=== PATIENT | female | born 1970 | race Caucasian/White ===

== ENCOUNTER 2017-07-29 20:02 | Emergency (ER) | payer MEDICARE, OTHER ==
[~2017-07-29] VITALS: Ht 160 cm; Wt 120.0 kg
[~2017-07-29 20:02] MED LIST: APIX5TAB PO; BEN25 PO; HYDR-3498 PO; NOL10 PO; NOL20 PO; TRAM50TA2 PO; VENL-42 PO
[2017-07-29 20:05] VITALS: Ht 160 cm; Wt 120.0 kg
--- NOTE | 2017-07-29 21:02 | ERD ---
ER Documentation Chief Complaint Date/Time DATE: 07/29/17 TIME: 20:56 Chief Complaint shortness x 1 week, hx asthma HPI Patient is a 46-year-old female with a history of asthma, breast cancer with mets to lungs and liver (last treatment over 1.5 years old), recurrent pleural effusions who presents to the emergency department for concerns of shortness of breath 1 week. Patient states that her shortness of breath occurs episodically. Patient states that she feel SOB when walking long distances. Patient denies any SOB at rest. Patient reports difficulty with taking a deep breath. Patient also reports intermittent episodes of palpitations. She states she states that her episodes last less than 1 minute. Patient denies any chest pain. Patient denies any fever, chills, left upper extremity pain, nausea, vomiting, diaphoresis, loss of consciousness. 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 Patient denies any heavy lifting or recent trauma. Patient denies any bilateral leg swelling, calf pain,recent surgeries, prolonged travel , hormone use, history of DVT or PE. ROS All systems reviewed and are negative except as per history of present illness. Medications Home Meds Active Scripts Ferrous Sulfate* (Ferrous Sulfate*) 325 Mg Tabec, 325 MG PO BID, #60 TAB Prov:MILO SEGURA PA-C 07/30/17 Diphenhydramine Hcl* (Benadryl*) 25 Mg Cap, 25 MG PO Q6, #30 CAP Prov:DURAN BERG NP 10/01/16 Tramadol HCl (Tramadol HCl) 50 Mg Tablet, 50 MG PO Q6 Y for PAIN, #20 TAB Prov:DURAN BERG NP 10/01/16 Hydrocodone Bit/Acetaminophen (Anexsia 5-325 Mg Tablet) 1 Tab Tablet, 1 TAB PO Q6H Y for MODERATE PAIN LEVEL 4-6, #20 TAB Prov:LILIYA SANCHES V. CERTIFIED MEDICAL CODER 03/24/16 Venlafaxine Hcl* (Venlafaxine Hcl ER*) 37.5 Mg Capsr, 37.5 MG PO DAILY for 30 Days, CAP Prov:SANCHESLILIYA V. CERTIFIED MEDICAL CODER 03/23/16 Apixaban* (Eliquis*) 5 Mg Tablet, 5 MG PO BID for 90 Days, TAB Prov:LILIYA SANCHES V. CERTIFIED MEDICAL CODER 03/23/16 Tamoxifen Citrate* (Nolvadex*) 10 Mg Tab, 20 MG PO DAILY for 30 Days, TAB Prov:LILIYA SANCHES V. CERTIFIED MEDICAL CODER 03/23/16 Reported Medications Tamoxifen Citrate* (Tamoxifen Citrate*) 20 Mg Tab, 20 MG PO DAILY, TAB 05/26/16 Allergies Allergies: Coded Allergies: Penicillins (Verified Allergy, Mild, 03/10/16) hydrocodone bit (Verified Adverse Reaction, Mild, HEADACHE, NAUSEA AND VOMITING, 03/10/16) PMhx/Soc History of Surgery: Yes (RT MASTECTOMY 2013, BTL) Anesthesia Reaction: No Hx Neurological Disorder: No Hx Respiratory Disorders: Yes (PLEURAL EFFUSION REQUIRING CHEST TUBE 2015) Hx Cardiac Disorders: No Hx Psychiatric Problems: No Hx Miscellaneous Medical Probl: Yes (breast ca) Hx Alcohol Use: No Hx Substance Use: No Hx Tobacco Use: No Smoking Status: Never smoker Physical Exam Vitals Vital Signs Date Time Temp Pulse Resp B/P Pulse Ox O2 Delivery O2 Flow Rate FiO2 07/30/17 01:38 98.3 89 20 137/68 97 07/29/17 20:05 98.7 89 20 143/73 97 Physical Exam GENERAL: Well-developed, well-nourished female. Appears in no acute distress. No abdominal retractions, no nasal flaring. HEAD: Normocephalic, atraumatic. EYES: Pupils are equally reactive bilaterally. EOMs grossly intact. No conjunctival erythema. ENT: Moist mucous membranes. No uvula deviation. No kissing tonsils. NECK: Supple. No meningismus. Normal range of motion of the neck. LUNG: Clear to auscultation bilaterally. No rhonchi, wheezing, rales or coarse breath sounds. HEART: Regular rate and rhythm. No murmurs, rubs or gallops. BACK: No midline tenderness. EXTREMITIES: Equal pulses bilaterally. No peripheral clubbing, cyanosis or edema. No unilateral leg swelling. NEUROLOGIC: Alert and oriented. Moving all four extremities without any difficulty. Normal speech. Steady gait. SKIN: Normal color. Warm and dry. No rashes or lesions. Result Diagram: 07/29/17212907/29/172129 Results 24 hrs Laboratory Tests Test 07/29/17 21:30 White Blood Count 11.310^3/ul Red Blood Count 4.4610^6/ul Hemoglobin 9.6g/dl Hematocrit 31.3% Mean Corpuscular Volume 70.2fl Mean Corpuscular Hemoglobin 21.5pg Mean Corpuscular Hemoglobin Concent 30.7g/dl Red Cell Distribution Width 17.9% Platelet Count 74733^3/UL Mean Platelet Volume 9.1fl Neutrophils % 61.1% Lymphocytes % 28.8% Monocytes % 7.9% Eosinophils % 1.3% Basophils % 0.5% Nucleated Red Blood Cells % 0.0/100WBC Neutrophils # 6.910^3/ul Lymphocytes # 3.310^3/ul Monocytes # 0.910^3/ul Eosinophils # 0.210^3/ul Basophils # 0.110^3/ul Nucleated Red Blood Cells # 0.010^3/ul Sodium Level 139mmol/L Potassium Level 3.8mmol/L Chloride Level 108mmol/L Carbon Dioxide Level 21mmol/L Anion Gap 14 Blood Urea Nitrogen 17mg/dl Creatinine 0.71mg/dl Glucose Level 108mg/dl Calcium Level 9.0mg/dl Troponin I < 0.012ng/ml B-Type Natriuretic Peptide 69PG/ML Procedures/MDM ED COURSE: The patient was stable throughout ED course. I kept the patient and/or family informed of laboratory and diagnostic imaging results throughout the ED course. EKG: Read by Dr. Dietrich, attending physician. EKG shows normal sinus rhythm at a rate of 72 bpm. No arrhythmias, acute ST elevations or T wave changes were noted. DIAGNOSTIC IMAGING: Read by radiologist. Patient: GLENNA KNAPP : 1970 Age: 46 Sex: F [id number] DOS: 07/29/172042 Ordering MD: MILO SEGURA PA-C Location: [facility] Room/Bed: PROCEDURE: XR Chest. CLINICAL INDICATION: Shortness of breath. TECHNIQUE: Portable AP semi erect view of the chest was obtained. COMPARISON: 03/23/2016 FINDINGS: The cardiomediastinal silhouette is within upper normal limits. The right lower lobe consolidation appears slightly worse likely compressive atelectasis from an enlarging right pleural effusion. The left lung is clear. There is no left pleural effusion or pulmonary vascular congestion. The osseous structures are intact with no evidence for acute abnormality. RPTAT:HJJR IMPRESSION: Slight interval enlargement of chronic right pleural effusion and associated compressive atelectasis of the right lower lobe as compared to 03/23/2016. Chronic empyema is difficult to exclude. Consider follow-up evaluation. Physician Erick Date Time Electronically viewed and signed by Physician Erick on 07/29/2017 22:36 JR/ CC: MILO SEGURA PA-C Patient: GLENNA KNAPP : 1970 Age: 46 Sex: F MR #: [id number] DOS: 07/29/17 2312 Ordering MD: MILO SEGURA PA-C Location: [facility] Room/Bed: PROCEDURE: CT chest without contrast CLINICAL INDICATION: Shortness of breath TECHNIQUE: CT scan of the chest with contrast was performed without intravenous contrast. Coronal and sagittal images were reformatted. One or more of the following dose reduction techniques were used: Automated exposure control, adjustment of the mA and/or kV according to patient size, use of iterative reconstruction technique. The CTDIvol = 16.20 mGy and DLP = 618.05 mGycm. COMPARISON: Chest x-ray 07/29/2017 and 03/23/2016 FINDINGS: Lungs, airway and pleura: The trachea and bronchi are patent as well as normal in caliber. In addition to the compressive atelectasis of the right lower and middle lobe seen on the chest x-ray, there are multiple nodules scattered throughout both lungs ranging in size from 4 mm up to 1 cm. These findings may reflect atypical infectious etiologies but metastatic disease is difficult to exclude. The loculated right pleural effusion extends into the major fissure and has a slightly hyperdense periphery in the inferior right thorax, findings unable to exclude a chronic empyema. The right pleural fluid may also reflect carcinomatosis. The right pleural fluid occupies an estimated 40% of the right thorax. There is no evidence of a left pleural effusion. Mediastinum, cleo and cardiovascular: The heart is normal in size. There is no evidence for pericardial effusion. The thoracic aorta is normal in caliber. Paratracheal adenopathy is approximately 1.8 cm in short axis. There is subcarinal adenopathy of approximately 1.3 cm in short axis. The esophagus is normal in caliber. Osseous structures and musculoskeletal findings: Sclerosis of the sternum is concerning for blastic metastatic disease. There is some spondylosis of the thoracic spine without additional evidence of osseous metastasis. Changes of right mastectomy are present. Right axillary adenopathy has a short axis of 1.7 cm and cannot exclude metastatic disease. Visualized upper abdomen: Hypodense masses within the liver are present, a total of 5 lesions are visualized ranging in size from 7 mm up to 6.6 cm in the right hepatic lobe, findings compatible with hepatic metastases. Adenopathy of the ventura hepatis region is present. The adrenal glands are normal bilaterally. RPTAT:HJJR IMPRESSION: 1. Loculated right pleural effusion is more concerning for carcinomatosis rather than a chronic empyema 2. Multiple scattered pulmonary nodules bilaterally in addition to compressive atelectasis of the right lower lobe are concerning for metastatic disease. Mediastinal adenopathy is also present and concerning for neoplastic involvement. 3. Changes of right mastectomy are noted with right axillary lymphadenopathy, hepatic metastases and a sclerotic sternum focus, the combination of findings believed to reflect stage IV metastatic breast cancer. Consideration might be given for follow-up evaluation with PET. Physician Erick Date Time Electronically viewed and signed by Physician Erick on 07/29/2017 23:54 JR/ CC: MILO SEGURA PA-C MEDICAL DECISION MAKING: This is a 46-year-old female with PMHx of breast cancer with mets to lung and liver who presents emergency department for concerns of shortness of breath and palpitations for the last week. Patient describes her symptoms to be episodic in nature. Patient denied any leg swelling, recent surgeries, travel, exogenous estrogen use. Vital signs were reviewed. Patient was afebrile. Patient was not hypoxic. CBC showed signs of a slight anemia. Patient does not have any indications for an emergent blood transfusion at this time. BMP showed no evidence of electrolyte abnormalities, severe acidosis, alkalosis, renal failure. PERC score was 0. Troponin was negative. BNP was negative. EKG was obtained and showed normal sinus rhythm. Reviewed by ED attending. CXR showed slight interval enlargement of chronic right pleural effusion and associated compressive atelectasis of the right lower lobe as compared to 03/23/2016. Chronic empyema is difficult to exclude. Consider follow-up evaluation. Initially, I spoke to Dr. Dietrich, supervising physician who advised me to order CT chest. CT chest was obtained given the patient had a history of cancer. CT chest showed 1. Loculated right pleural effusion is more concerning for carcinomatosis rather than a chronic empyema 2. Multiple scattered pulmonary nodules bilaterally in addition to compressive atelectasis of the right lower lobe are concerning for metastatic disease. Mediastinal adenopathy is also present and concerning for neoplastic involvement. 3. Changes of right mastectomy are noted with right axillary lymphadenopathy, hepatic metastases and a sclerotic sternum focus, the combination of findings believed to reflect stage IV metastatic breast cancer. Consideration might be given for follow-up evaluation with PET. Discussed findings with Dr. Escobar, my supervising physician at the time. Dr. Escobar also examined and spoke to the patient. We had a long discussion with patient in regards to her CT findings. Patient was offered admission, however she declined. Patient states she is barely getting her life back on track and wished to go home at this time. Patient was advised that she may return at anytime for any new or worsening symptoms. Patient was encouraged to follow-up with her oncologist for further management of her pleural effusion and CT chest findings. Patient understands and is agreeable with this plan. Patient's O2 sat remained above 95% throughout ED course with no signs of respiratory distress/failure. At this time, patient's presentation is most consistent with pleural effusion and possible carcinomatosis. She also noted to have a slight anemia. Patient was advised to take iron supplements. Low suspicion for ACS, pericarditis, pericardial tamponade, PE, pneumothorax, pneumonia, bronchitis. PRESCRIPTION: Ferrous sulfate DISCHARGE: At this time, patient is stable for discharge and outpatient management. Patient was given a copy of all imaging studies and blood work obtained today. I have instructed the patient to follow-up with his/her primary care physician/ oncologist (Dr. Tobar) in 1-2 days. I have discussed with the patient the possibility of needing to see a specialist for further workup and imaging studies if symptoms persist. I have instructed the patient to promptly return to the ER for any new or worsening symptoms including increased pain, fever, nausea, vomiting, weakness or LOC. The patient and/or family expressed understanding of and agreement with this plan. All questions were answered. Home care instructions were provided. Disclaimer: Inadvertent spelling and grammatical errors are likely due to EHR/ dictation software use and do not reflect on the overall quality of patient care. Also, please note that the electronic time recorded on this note does not necessarily reflect the actual time of the patient encounter Departure Diagnosis: Primary Impression: Pleural effusion, right Additional Impressions: Shortness of breath Carcinomatosis Condition: Stable Patient Instructions: Pleural Effusion, What Is Breast Cancer? Referrals: KACY GAN CARLOS M. MD ARORA,EMILY ZHOU MD, MD,JUAN EDEN,VERO ANTOINE,ASHLEY MARTINES MD Additional Instructions: Call your primary care doctor TOMORROW for an appointment during the next 1-2 days.See the doctor sooner or return here if your condition worsens before your appointment time. Call Dr. Tobar, your oncologist was further management of your pleural effusion. Unable to rule out metastasis at this time. MILO SEGURA PA-C Jul 29, 2017 21:02
[2017-07-29 21:43] LABS: BASOPHIL # 0.1 10^3/ul (0.0-0.1); BASOPHILS % 0.5 % (0.0-2.0); EOSINOPHILS # 0.2 10^3/ul (0.0-0.5); EOSINOPHILS % 1.3 % (0.0-7.0); HEMATOCRIT 31.3 % (37.0-47.0); HEMOGLOBIN 9.6 g/dl (12.0-16.0); LYMPHOCYTES # 3.3 10^3/ul (0.8-2.9); LYMPHOCYTES % 28.8 % (15.0-51.0); MEAN CORPUSCULAR HEMOGLOBIN 21.5 pg (29.0-33.0); MEAN CORPUSCULAR HGB CONC 30.7 g/dl (32.0-37.0); MEAN CORPUSCULAR VOLUME 70.2 fl (82.0-101.0); MEAN PLATELET VOLUME 9.1 fl (7.4-10.4); MONOCYTE # 0.9 10^3/ul (0.3-0.9); MONOCYTES % 7.9 % (0.0-11.0); NEUTROPHIL # 6.9 10^3/ul (1.6-7.5); NEUTROPHILS % 61.1 % (39.0-77.0); PLATELET COUNT 295 10^3/UL (140-415); RED BLOOD COUNT 4.46 10^6/ul (4.20-5.40); RED CELL DISTRIBUTION WIDTH 17.9 % (11.5-14.5); WHITE BLOOD COUNT 11.3 10^3/ul (4.8-10.8)
[2017-07-29 21:59] LABS: ANION GAP 14 (8-16); BLOOD UREA NITROGEN 17 mg/dl (7-20); CARBON DIOXIDE 21 mmol/L (21-31); CHLORIDE 108 mmol/L (97-110); CREATININE 0.71 mg/dl (0.44-1.00); GLUCOSE 108 mg/dl (70-220); POTASSIUM 3.8 mmol/L (3.5-5.1); SODIUM 139 mmol/L (135-144)
[2017-07-29 22:11] LABS: B-TYPE NATRIURETIC PEPTIDE 69 PG/ML (0-125)
[2017-07-29 22:15] LABS: TROPONIN-I < 0.012 ng/ml (0.00-0.12)
--- NOTE | 2017-07-29 22:37 | RADRPT ---
PROCEDURE: XR Chest. CLINICAL INDICATION: Shortness of breath. TECHNIQUE: Portable AP semi erect view of the chest was obtained. COMPARISON: 03/23/2016 FINDINGS: The cardiomediastinal silhouette is within upper normal limits. The right lower lobe consolidation appears slightly worse likely compressive atelectasis from an enlarging right pleural effusion. The left lung is clear. There is no left pleural effusion or pulmonary vascular congestion. The osseou s structures are intact with no evidence for acute abnormality. RPTAT:HJJR IMPRESSION: Slight interval enlargement of chronic right pleural effusion and associated compressive atelectasis of the right lower lobe as compared to 03/23/2016. Chronic empyema is difficult to exclude. Conside r follow-up evaluation. Physician Erick Date Time Electronically viewed and signed by Physician Erick on 07/29/2017 22:36 /
--- NOTE | 2017-07-29 23:54 | RADRPT ---
PROCEDURE: CT chest without contrast CLINICAL INDICATION: Shortness of breath TECHNIQUE: CT scan of the chest with contrast was performed without intravenous contrast. Coronal and sagittal images were reformatted. One or more of the following dose reduction techniques were used: Automated exposure control, adjustment of the mA and/or kV according to patient size, use of i terative reconstruction technique. The CTDIvol = 16.20 mGy and DLP = 618.05 mGycm. COMPARISON: Chest x-ray 07/29/2017 and 03/23/2016 FINDINGS: Lungs, airway and pleura: The trachea and bronchi are patent as well as normal in caliber. In melinda tion to the compressive atelectasis of the right lower and middle lobe seen on the chest x-ray, ther e are multiple nodules scattered throughout both lungs ranging in size from 4 mm up to 1 cm. These f indings may reflect atypical infectious etiologies but metastatic disease is difficult to exclude. The loculated right pleural effusion extends into the major fissure and has a slightly hyperdense pe riphery in the inferior right thorax, findings unable to exclude a chronic empyema. The right pleura l fluid may also reflect carcinomatosis. The right pleural fluid occupies an estimated 40% of the ri ght thorax. There is no evidence of a left pleural effusion. Mediastinum, cleo and cardiovascular: The heart is normal in size. There is no evidence for perica rdial effusion. The thoracic aorta is normal in caliber. Paratracheal adenopathy is approximately 1.8 cm in short axis. There is subcarinal adenopathy of approximately 1.3 cm in short axis. The eso phagus is normal in caliber. Osseous structures and musculoskeletal findings: Sclerosis of the sternum is concerning for blastic metastatic disease. There is some spondylosis of the thoracic spine without additional evidence of osseous metastasis. Changes of right mastectomy are present. Right axillary adenopathy has a short axis of 1.7 cm and cannot exclude metastatic disease. Visualized upper abdomen: Hypodense masses within the liver are present, a total of 5 lesions are v isualized ranging in size from 7 mm up to 6.6 cm in the right hepatic lobe, findings compatible with hepatic metastases. Adenopathy of the ventura hepatis region is present. The adrenal glands are norm al bilaterally. RPTAT:HJJR IMPRESSION: 1. Loculated right pleural effusion is more concerning for carcinomatosis rather than a chronic emp yema 2. Multiple scattered pulmonary nodules bilaterally in addition to compressive atelectasis of the ri ght lower lobe are concerning for metastatic disease. Mediastinal adenopathy is also present and con cerning for neoplastic involvement. 3. Changes of right mastectomy are noted with right axillary lymphadenopathy, hepatic metastases an d a sclerotic sternum focus, the combination of findings believed to reflect stage IV metastatic noelle ast cancer. Consideration might be given for follow-up evaluation with PET. Physician Erick Date Time Electronically viewed and signed by Physician Erick on 07/29/2017 23:54 /
[2017-07-30] MEDS ORDERED: FER325 PO (00:46)
[2017-07-30 01:38] VITALS: BP 137/68; PULSE 89; RESP 20; TEMP 98.3
== END 2017-07-30 01:39 | disposition home or self-care (01) ==
LOC: FTE 20:02
DX: J90 Pleural effusion, not elsewhere classified (principal); C80.0 Disseminated malignant neoplasm, unspecified; J45.909 Unspecified asthma, uncomplicated; Z79.01 Long term (current) use of anticoagulants; Z85.3 Personal history of malignant neoplasm of breast
CPT/HCPCS: 71010; 71250; 80048; 83880; 84484; 85025; 93005

== ENCOUNTER 2017-08-08 15:49 | Inpatient (IN) | payer MEDICARE, OTHER ==
[~2017-08-08] VITALS: Ht 162.6 cm; Wt 120.0 kg
[~2017-08-08 15:49] MED LIST changes: +FER325 PO
[2017-08-08 16:00] VITALS: Ht 162.6 cm; Wt 120.0 kg
[2017-08-08] MEDS ORDERED: ONDANSETRON 4 MG INJ IV STA (16:07)
--- NOTE | 2017-08-08 16:25 | RADRPT ---
PROCEDURE: XR Chest. CLINICAL INDICATION: Chest pain. TECHNIQUE: Single frontal view. COMPARISON: 07/29/2017. FINDINGS: There is a large right pleural effusion and only minimal aeration of the right lung apex. The left l germaine is clear and there is no left pleural effusion. The heart size is normal. There is calcification in the aorta consistent with atherosclerosis. There is no pneumothorax. IMPRESSION: 1. Large right pleural effusion, larger than seen previously. 2. Only minimal aeration of the right lung apex. 3. Otherwise unremarkable study. RPTAT: QQ .Itz Parsons MD, MD Date Time Electronically viewed and signed by .Itz Parsons MD, on 08/08/2017 16:25 .R/
[2017-08-08 16:27] LABS: BASOPHIL # 0.1 10^3/ul (0.0-0.1); BASOPHILS % 0.4 % (0.0-2.0); EOSINOPHILS % 0.1 % (0.0-7.0); HEMATOCRIT 33.5 % (37.0-47.0); HEMOGLOBIN 10.3 g/dl (12.0-16.0); LYMPHOCYTES % 14.8 % (15.0-51.0); MEAN CORPUSCULAR HEMOGLOBIN 21.3 pg (29.0-33.0); MEAN CORPUSCULAR HGB CONC 30.7 g/dl (32.0-37.0); MEAN CORPUSCULAR VOLUME 69.4 fl (82.0-101.0); MEAN PLATELET VOLUME 9.4 fl (7.4-10.4); MONOCYTE # 0.8 10^3/ul (0.3-0.9); MONOCYTES % 5.6 % (0.0-11.0); NEUTROPHIL # 10.5 10^3/ul (1.6-7.5); NEUTROPHILS % 78.6 % (39.0-77.0); PLATELET COUNT 295 10^3/UL (140-415); RED BLOOD COUNT 4.83 10^6/ul (4.20-5.40); WHITE BLOOD COUNT 13.4 10^3/ul (4.8-10.8)
[2017-08-08 16:42] LABS: INR 1.09; PROTIME 14.1 Sec (12.2-14.2); PT RATIO 1.1
[2017-08-08 16:43] LABS: PARTIAL THROMBOPLASTIN TIME 32.8 Sec (25.0-35.0)
--- NOTE | 2017-08-08 16:43 | ERA ---
ER Documentation Chief Complaint Date/Time DATE: 08/08/17 TIME: 16:41 Chief Complaint sob when lying flat during mri, lung biopsy x 1 week, + cancer HPI This is a 46-year-old female with a history of right breast cancer who had her right pleural effusion drained 5 days ago. Patient says she felt good 1-2 days after but it started getting short of breath. She says she cannot walk very far and has orthopnea. Patient was a code green at radiology department in the MRI scanner. The patient apparently was getting an MRI of her brain when she was given IV contrast she became very dizzy. The MRI was completed and when she was taken out of the scanner she was complaining of severe dizziness and did not feel well. There is no rash no swelling of the face lips tongues or throat. She had no chest pain. She states that once she got to the ER here she was having profuse vomiting over and over that is nonbloody. She says she felt better after she stopped vomiting. She denies any recent fever abdominal pain diarrhea illness or productive cough ROS All systems reviewed and are negative except as per history of present illness. Medications Home Meds Discontinued Reported Medications Tamoxifen Citrate* (Tamoxifen Citrate*) 20 Mg Tab, 20 MG PO DAILY, TAB 05/26/16 Discontinued Scripts Ferrous Sulfate* (Ferrous Sulfate*) 325 Mg Tabec, 325 MG PO BID, #60 TAB Prov:MILO SEGURA PA-C 07/30/17 Diphenhydramine Hcl* (Benadryl*) 25 Mg Cap, 25 MG PO Q6, #30 CAP Prov:DURAN BERG NP 10/01/16 Tramadol HCl (Tramadol HCl) 50 Mg Tablet, 50 MG PO Q6 Y for PAIN, #20 TAB Prov:DURAN BERG NP 10/01/16 Hydrocodone Bit/Acetaminophen (Anexsia 5-325 Mg Tablet) 1 Tab Tablet, 1 TAB PO Q6H Y for MODERATE PAIN LEVEL 4-6, #20 TAB Prov:LILIYA SANCHES V. [employer] 03/24/16 Venlafaxine Hcl* (Venlafaxine Hcl ER*) 37.5 Mg Capsr, 37.5 MG PO DAILY for 30 Days, CAP Prov:LILIYA SANCHES V. [employer] 03/23/16 Apixaban* (Eliquis*) 5 Mg Tablet, 5 MG PO BID for 90 Days, TAB Prov:SANCHES,LILIYA V. [employer] 03/23/16 Tamoxifen Citrate* (Nolvadex*) 10 Mg Tab, 20 MG PO DAILY for 30 Days, TAB Prov:SANCHES,LILIYA V. [employer] 03/23/16 Allergies Allergies: Coded Allergies: Penicillins (Verified Allergy, Mild, 08/08/17) hydrocodone bit (Verified Adverse Reaction, Mild, HEADACHE, NAUSEA AND VOMITING, 08/08/17) PMhx/Soc History of Surgery: Yes (RT MASTECTOMY 2013, BTL) Anesthesia Reaction: No Hx Neurological Disorder: No Hx Respiratory Disorders: Yes (PLEURAL EFFUSION REQUIRING CHEST TUBE 2015) Hx Cardiac Disorders: No Hx Psychiatric Problems: No Hx Miscellaneous Medical Probl: Yes (breast ca) Hx Alcohol Use: No Hx Substance Use: No Hx Tobacco Use: No Smoking Status: Never smoker Physical Exam Vitals Vital Signs Date Time Temp Pulse Resp B/P Pulse Ox O2 Delivery O2 Flow Rate FiO2 08/08/17 18:07 81 16 133/70 97 Room Air 08/08/17 16:00 Nasal Cannula 2.0 08/08/17 16:00 Nasal Cannula 2 08/08/17 16:00 98.8 91 24 160/85 97 Physical Exam Const: [] Head: Atraumatic Eyes: Normal Conjunctiva ENT: Normal External Ears, Nose and Mouth. Neck: Full range of motion..~ No meningismus. Resp: Clear to auscultation bilaterally Cardio: Regular rate and rhythm, no murmurs Abd: Soft, non tender, non distended. Normal bowel sounds Skin: No petechiae or rashes Back: No midline or flank tenderness Ext: No cyanosis, or edema Neur: Awake and alert Psych: Normal Mood and Affect Result Diagram: 08/08/17 1600 08/08/17 1600 Results 24 hrs Laboratory Tests Test 08/08/17 16:00 White Blood Count 13.410^3/ul Red Blood Count 4.8310^6/ul Hemoglobin 10.3g/dl Hematocrit 33.5% Mean Corpuscular Volume 69.4fl Mean Corpuscular Hemoglobin 21.3pg Mean Corpuscular Hemoglobin Concent 30.7g/dl Red Cell Distribution Width 18.0% Platelet Count 32389^3/UL Mean Platelet Volume 9.4fl Neutrophils % 78.6% Lymphocytes % 14.8% Monocytes % 5.6% Eosinophils % 0.1% Basophils % 0.4% Nucleated Red Blood Cells % 0.0/100WBC Neutrophils # 10.510^3/ul Lymphocytes # 2.010^3/ul Monocytes # 0.810^3/ul Eosinophils # 0.010^3/ul Basophils # 0.110^3/ul Nucleated Red Blood Cells # 0.010^3/ul Prothrombin Time 14.1Sec Prothrombin Time Ratio 1.1 INR International Normalized Ratio 1.09 Activated Partial Thromboplast Time 32.8Sec Sodium Level 137mmol/L Potassium Level 4.0mmol/L Chloride Level 105mmol/L Carbon Dioxide Level 22mmol/L Anion Gap 14 Blood Urea Nitrogen 10mg/dl Creatinine 0.57mg/dl Glucose Level 123mg/dl Calcium Level 9.2mg/dl Total Bilirubin 0.2mg/dl Direct Bilirubin 0.00mg/dl Indirect Bilirubin 0.2mg/dl Aspartate Amino Transf (AST/SGOT) 59IU/L Alanine Aminotransferase (ALT/SGPT) 29IU/L Alkaline Phosphatase 107IU/L Troponin I < 0.012ng/ml B-Type Natriuretic Peptide 77PG/ML Total Protein 8.1g/dl Albumin 4.0g/dl Globulin 4.10g/dl Albumin/Globulin Ratio 0.97 Current Medications Medications (Trade) Dose Ordered Sig/Mariza Route PRN Reason Start Time Stop Time Status Last Admin Dose Admin Ondansetron HCl (Zofran Inj) 4 mg ONCE STAT IV 08/08/17 16:07 08/08/17 16:10 DC 08/08/17 16:26 Procedures/MDM PROCEDURE: XR Chest. CLINICAL INDICATION: Chest pain. TECHNIQUE: Single frontal view. COMPARISON: 07/29/2017. FINDINGS: There is a large right pleural effusion and only minimal aeration of the right lung apex. The left lung is clear and there is no left pleural effusion. The heart size is normal. There is calcification in the aorta consistent with atherosclerosis. There is no pneumothorax. IMPRESSION: 1. Large right pleural effusion, larger than seen previously. 2. Only minimal aeration of the right lung apex. 3. Otherwise unremarkable study. RPTAT: QQ .Itz Parsons MD, MD Date Time Electronically viewed and signed by .Itz Parsons MD, on 08/08/2017 16:25 .R/ CC: JULIA ALTAMIRANO DO The patient again has a very large right pleural effusion. His unusual that the fluid has accumulated so fast again just 4-5 days after being drained. Her dizziness may have been caused from a contrast induced reaction. Her vomiting may have been from that or from the vertigo she was feeling. We will admit her to the hospital for symptomatic pleural effusion she will need to have it drained again. Departure Diagnosis: Primary Impression: Pleural effusion Condition: Stable JULIA ALTAMIRANO DO Aug 08, 2017 16:43
[2017-08-08 16:45] LABS: ALANINE AMINOTRANSFERASE 29 IU/L (13-69); ALBUMIN/GLOBULIN RATIO 0.97; ALKALINE PHOSPHATASE 107 IU/L (42-121); ANION GAP 14 (8-16); ASPARTATE AMINO TRANSFERASE 59 IU/L (15-46); BILIRUBIN,INDIRECT 0.2 mg/dl (0-1.1); BILIRUBIN,TOTAL 0.2 mg/dl (0.2-1.3); BLOOD UREA NITROGEN 10 mg/dl (7-20); CALCIUM 9.2 mg/dl (8.4-10.2); CARBON DIOXIDE 22 mmol/L (21-31); CHLORIDE 105 mmol/L (97-110); CREATININE 0.57 mg/dl (0.44-1.00); GLUCOSE 123 mg/dl (70-220); SODIUM 137 mmol/L (135-144); TOTAL PROTEIN 8.1 g/dl (6.1-8.1)
[2017-08-08 16:57] LABS: B-TYPE NATRIURETIC PEPTIDE 77 PG/ML (0-125)
[2017-08-08 17:02] LABS: TROPONIN-I < 0.012 ng/ml (0.00-0.12)
[2017-08-08] MEDS ORDERED: ONDANSETRON 4 MG INJ IV PRN ×2 (20:00→22:30)
[2017-08-08] MEDS ORDERED: ACETAMINOPHEN 325 MG TAB PO PRN (20:00)
[2017-08-08] MEDS ORDERED: DEXAMETHASONE 10 MG/ML 1 ML INJ IV ONE (20:30)
--- NOTE | 2017-08-08 20:40 | RADRPT ---
PROCEDURE: CT Brain without contrast. CLINICAL INDICATION: Evaluate for metastasis TECHNIQUE: A CT of the brain was performed on a GE [employer] 64-slice CT scanner utilizing axial imaging from the skull base through the vertex without IV contrast. Multiplanar reformatted images were made. Images were reviewed on a PACS workstation. The CTDIvol is 43.48 mGy and the DLP is 720 .23 mGycm. One of the following 3 does reduction techniques were used during this CT examination: 1) Automated exposure control 2) Adjustment of the mA +/- kV according to patient size or 3) Use of iterative reconstruction technique COMPARISON: None FINDINGS: There is no intracranial hemorrhage, mass effect, or midline shift. No extra-axial fluid collection is seen. The ventricles and sulci are normal in size and configuration. The density of the brain is normal, and the marquez white matter differentiation appears well-preserved. The visualized scalp demonstrates a permeative pattern of the right frontal calvarium associated wit h a transspatial mass involving the right frontal scalp and extending through the calvarium into the extra-axial an intra-axial spaces. A right frontal lobe mass is present at the marquez-white matter ju nction with extensive vasogenic perilesional edema. In addition, multiple other masses which are hyp erdense are noted in the left parietal convexity measuring approximately 4 and 9 mm in maximum dimen sions. Recommend brain MRI with contrast to further evaluate. Effacement of the right lateral is present and right to left 6 mm midline shift and subfalcine herni ation is present. No evidence for hydrocephalus or acute hemorrhage is noted. The visualized orbits are normal. The visualized paranasal sinuses, mastoid air cells and middle ear cavities are clear. IMPRESSION: 1. Large right trans spatial mass involving the right frontal scalp, calvarium, extra axial space a nd right frontal lobe with extensive perilesional edema. This is compatible with metastatic disease and recommend brain MRI with contrast to further evaluate. 2. Multiple left parietal convexity hyperdense lesions at the marquez-white matter junction compatible with additional metastasis. 3. 6 mm right to left midline herniation and effacement of the right lateral ventricle. 4. No evidence for acute hemorrhage or hydrocephalous Critical result A call report was made to ER Patient's Nurse, Sydnee Allison, at 08/08/2017 8:35:45 PM following the completion of the examination by the undersigned. RPTAT: LISC .Ophelia Olguin MD, MD Date Time Electronically viewed and signed by .Ophelia Olguin MD, MD on 08/08/2017 20:39 .C/
[2017-08-08 21:48] VITALS: PULSE 80
--- NOTE | 2017-08-08 22:14 | RADRPT ---
PROCEDURE: CT Brain without contrast. CLINICAL INDICATION: Sudden left-sided weakness TECHNIQUE: A CT of the brain was performed on a GE [employer] 64-slice CT scanner utilizing axial imaging from the skull base through the vertex without IV contrast. Multiplanar reformatted images were made. Images were reviewed on a PACS workstation. The CTDIvol is 42.81 mGy and the DLP is 20. 23 mGycm. One of the following 3 does reduction techniques were used during this CT examination: 1) Automated exposure control 2) Adjustment of the mA +/- kV according to patient size or 3) Use of iterative reconstruction technique COMPARISON: None FINDINGS: The visualized scalp and again demonstrates a preventive lesion in the right frontal calvarium with the trans spatial lesion extending from the right frontal scalp involving the calvarium and the righ t frontal extra-axial and frontal lobe. This lesion is concerning for metastasis. Perilesional edema is noted in the right frontal lobe with effacement of the right lateral ventricle. Again noted is 6 mm right to left midline herniation. Multiple hyperdense nodules are noted in the left posterior pa rietal lobe at the marquez-white matter junction ranging in size from 4 to 9 mm. Hyperdense metastasis are again likely per Brain MRI with contrast is again recommended to further evaluate. No extra-axial fluid collections are present. No evidence for extra-axial hemorrhage is noted. No ev idence for hydrocephalus is noted. IMPRESSION: 1. No significant interval change in the large right frontal trans patient will mass involving the scalp, the calvarium, the right frontal extra-axial space in the right frontal lobe with extensive p erilesional edema. This is concerning for a metastasis and recommend brain MRI with contrast. 2. Multiple left parietal convexity hyperdense lesions ranging in size from fourth to 9 mm also com patible with metastasis. 3. 6 mm right to left midline shift 4. No evidence for hydrocephalus at this time. RPTAT: HDC .Ophelia Olguin MD, MD Date Time Electronically viewed and signed by .Ophelia Olguin MD, on 08/08/2017 22:14 .C/
[2017-08-08 22:25] VITALS: PULSE 79
[2017-08-08 22:30] VITALS: BP 124/87; PULSE 75; RESP 20
[2017-08-08] MEDS ORDERED: ALBUTEROL/IPRATROPIUM (NEB) 3 ML AMP NEB PRN (22:30)
[2017-08-08] MEDS ORDERED: morphine 2 MG INJ IV PRN (22:30)
[2017-08-08] MEDS ORDERED: DEXAMETHASONE 10 MG/ML 1 ML INJ IV STA (22:45)
[2017-08-08 23:00] VITALS: BP 139/84; PULSE 82; RESP 24
[2017-08-08 23:29] LABS: BASOPHILS % 0.3 % (0.0-2.0); EOSINOPHILS % 0.1 % (0.0-7.0); HEMATOCRIT 30.5 % (37.0-47.0); HEMOGLOBIN 9.4 g/dl (12.0-16.0); LYMPHOCYTES # 1.7 10^3/ul (0.8-2.9); LYMPHOCYTES % 16.3 % (15.0-51.0); MEAN CORPUSCULAR HEMOGLOBIN 21.3 pg (29.0-33.0); MEAN CORPUSCULAR HGB CONC 30.8 g/dl (32.0-37.0); MEAN CORPUSCULAR VOLUME 69.2 fl (82.0-101.0); MEAN PLATELET VOLUME 9.3 fl (7.4-10.4); MONOCYTE # 0.8 10^3/ul (0.3-0.9); MONOCYTES % 7.5 % (0.0-11.0); NEUTROPHIL # 7.9 10^3/ul (1.6-7.5); NEUTROPHILS % 75.4 % (39.0-77.0); PLATELET COUNT 235 10^3/UL (140-415); RED BLOOD COUNT 4.41 10^6/ul (4.20-5.40); RED CELL DISTRIBUTION WIDTH 17.7 % (11.5-14.5); WHITE BLOOD COUNT 10.5 10^3/ul (4.8-10.8)
[2017-08-08 23:53] LABS: ALBUMIN 3.3 g/dl (3.3-4.9); ALBUMIN/GLOBULIN RATIO 0.82; BILIRUBIN,INDIRECT 0.3 mg/dl (0-1.1); BILIRUBIN,TOTAL 0.3 mg/dl (0.2-1.3); CALCIUM 9.1 mg/dl (8.4-10.2); CREATININE 0.62 mg/dl (0.44-1.00); POTASSIUM 3.9 mmol/L (3.5-5.1); TOTAL PROTEIN 7.3 g/dl (6.1-8.1)
[2017-08-08] MEDS: DEXAMETHASONE 4 MG/ML 1 ML INJ IV SCH (23:53)
[2017-08-09] VITALS (22 sets, daily range): BP systolic 119–186; BP diastolic 71–115; PULSE 59–85; RESP 18–33
[2017-08-09] MEDS: DEXAMETHASONE 4 MG/ML 1 ML INJ IV SCH ×3 (06:43→17:53)
--- NOTE | 2017-08-09 07:46 | HP ---
Date/Time of Note Date/Time of Note DATE: 08/09/17 TIME: 07:35 Assessment/Plan VTE Prophylaxis VTE Prophylaxis Intervention: SCD's Lines/Catheters IV [facility]ter [facility]from [facility]): Peripheral IV Urinary Cath still in place: No Assessment/Plan Assessment/Plan ASSESSMENT 46-year-old female with history of breast cancer with metastasis to the lung, liver and recurrent pleural effusion now with brain metastasis PLAN Continue ICU monitoring Frequent neuro checks Decadron Follow-up MRI of the brain results Thoracentesis Neurosurgery evaluation Will notify her oncologist about admission HPI/ROS Admit Date/Time Admit Date/Time Aug 08, 2017 at 19:54 Hx of Present Illness This is a 46-year-old female with a history of breast cancer with metastasis to lung and liver status post right-sided mastectomy with recurrent rule out effusion who initially presented for a MRI of the brain. During imaging, patient became severely dizzy as a result patient was sent to ER. MRI was completed. She told me that even when she was at home, she was planning on going to the ER after MRI is done because she has been having diffuse headache for the past day or 2 and because of continued shortness of breath. She said a few days ago she had thoracentesis at the outside hospital but she continued to have shortness of breath. She has had multiple thoracentesis for recurrent right-sided pleural effusion. Patient was initially admitted to telemetry unit but acidosis she got there she was noted to have difficulty speaking and a per patient she was also shaking. Patient is admitted to ICU for close monitoring given finding of brain imaging. See below. CT of the head showed Large right trans spatial mass involving the right frontal scalp, calvarium, extra axial space and right frontal lobe with extensive perilesional edema, Multiple left parietal convexity hyperdense lesions at the marquez-white matter junction compatible with additional metastasis. and 6 mm right to left midline herniation and effacement of the right lateral ventricle. PMH/Family/Social Social History Smoking Status: Never smoker Exam/Review of Systems Vital Signs Vitals Vital Signs Date Time Temp Pulse Resp B/P Pulse Ox O2 Delivery O2 Flow Rate FiO2 08/09/17 06:21 2.0 08/09/17 06:00 70 24 93 08/09/17 05:00 130/71 Nasal Cannula 08/09/17 04:00 98.3 Intake and Output 08/08/17 08/08/17 08/09/17 15:00 23:00 07:00 Intake Total 200 ml Output Total 1050 ml Balance -850 ml Exam Constitutional: alert, oriented, well developed Head: atraumatic, normocephalic Eyes: EOMI, PERRL Respiratory: diminished breath sounds Cardiovascular: nl pulses, regular rate and rhythm Extremities: normal pulses Labs Result Diagram: 08/08/17230408/08/17 230 Medications Medications Current Medications Ondansetron HCl (Zofran Inj) 4 mg Q6H PRN IV NAUSEA AND/OR VOMITING; Start at 22:30 Acetaminophen (Tylenol Liquid) 650 mg Q6H PRN PO PAIN LEVEL 1-3 OR FEVER; Start 08/08/17 at 22:30 Morphine Sulfate (morphine) 2 mg Q4H PRN IV PAIN LEVEL 7-10; Start 08/08/17 at 22:30 Famotidine (Pepcid) 20 mg Q12 PO ; Start 08/09/17 at 09:00 Dexamethasone (Decadron) 4 mg Q6 IV Last administered on 08/09/17t 06:43; Admin Dose 4 MG; Start 08/09/17 at 00:00 LARISA GONZALES MD Aug 09, 2017 07:45
[2017-08-09] MEDS: FAMOTIDINE 20 MG TAB PO SCH ×2 (09:34→20:52)
--- NOTE | 2017-08-09 12:54 | CONS ---
DATE OF ADMISSION: 08/08/2017 DATE OF CONSULTATION: 08/09/2017 REASON FOR CONSULTATION: Right pleural effusion. Thank you, Dr. Lee for this consultation. HISTORY OF PRESENT ILLNESS: This is a pleasant, 46-year-old lady with a history of metastatic breast cancer now found to have METS to the brain, in addition to history of METS to the lungs. She has had recurrent pleural effusions. The last thoracentesis was performed less than 1 week ago. The patient states in the past she has had a PleurX catheter approximately a year ago and this was removed when she had minimal drainage. Currently has mild dyspnea but no hemoptysis or hematemesis. No nausea or vomiting. PAST MEDICAL HISTORY: 1. Metastatic breast cancer. 2. Mild obesity. MEDICATION: Per chart. ALLERGIES: PENICILLIN AND HYDROCODONE. SOCIAL HISTORY: She is a nonsmoker. No alcohol. No history of drug use. FAMILY HISTORY: Noncontributory. REVIEW OF SYSTEMS: A 12-point review of systems negative other than that mentioned above. PHYSICAL EXAMINATION: GENERAL: Well-nourished, well-developed lady, comfortable at rest. No acute distress. VITAL SIGNS: Currently afebrile. Pulse is 68, blood pressure 125/72, O2 sat 96 percent on 4 L nasal cannula. NECK: Supple. No JVD. No lymphadenopathy. CARDIAC: S1, S2. No added sounds or murmurs. CHEST: Diminished air entry bilaterally. ABDOMEN: Soft, nontender. No guarding or rebound. EXTREMITIES: No cyanosis, clubbing or edema. NEUROLOGICALLY: No focal deficits. LABORATORY: White count 10.5, hemoglobin 9.4, and platelets of 235. INR 1.09. Chest x-ray shows a large to moderate right pleural effusion. IMPRESSION: 1. Recurrent right pleural effusion, likely secondary to underlying metastatic breast cancer. 2. New central nervous system ([employer]) lesions with cerebral edema. PLAN: 1. The patient to have a PleurX catheter placed for recurrent pleural effusions. 2. Continue steroids for cerebral edema. 3. Neurosurgical recommendations. 4. Consider palliative care consultation as overall prognosis is guarded. Dictated By: Eh Freeman MD /barb/landry /Document#: [id number]
--- NOTE | 2017-08-09 14:28 | CONS ---
Date/Time of Note Date/Time of Note DATE: 08/09/17 TIME: 13:46 Assessment/Plan Assessment/Plan Chief Complaint/Hosp Course #Her2+/ER+/GA+ metastatic breast ca -pt is non compliant and when she receives therapy, she is quite responsive to therapy -therefore at this time, although she has terminal disease, there are still many more treatment options which she could benefit from -given her Brain mets, I would consider a combination of Xeloda and Lapatinib which can penetrate the blood brain barrier -once she stabilizes can restart Tamoxifen as well #Brain Mets -these are quite large and bulky -I have spoken to neurosurgery about potentially resecting these tumors. -will refer the patient to rad onc as well as she will need this regardless, post operatively -if surgery is not an option we can also consider radiosurgery #Pleural Effusion -pt to have a thoracentesis -will check cytology and re-evaluate her prognostic markers Problems: Consultation Date/Type/Reason Admit Date/Time Aug 08, 2017 at 19:54 Date of Consultation: Aug 09, 2017 Type of Consultation: Oncology Reason for Consultation metastatic Her2+ Breast ca now with brain mets Referring Provider: JUAN MOTLEY Hx of Present Illness 46-year-old female first seen our office in Oct 2014. Her history is as follows: -04/09/2013 had a right mastectomy on for a 3 cm poorly differentiated infiltrating ductal carcinoma with high-grade ductal carcinoma in situ measuring 3 cm with clear margins, but 7/8 nodes were positive for cancer. Her ER and GA were strongly positive. Ki-67 was high at 82%. Her HER-2/abraham was positive at 3+ by IHC,, PT was initially treated by Dr. Derrek Coleman who presumably gave the patient adjuvant Taxotere/ Cytoxan and Herceptin which was completed in 02/2014 with breaks in the therapy due to patient non compliance. PT was also given Tamoxifen which she only took for 2 months. -10/2014 pt presented to our clinic and was restarted on Tamoxifen The patient received untilchemotherapy until 02/2014, but I do not have the flow sheet. The patient was started on tamoxifen earlier this year, but she stopped after two months because of side effects. -01/2016 Re-presented to our clinic, off tamoxifen for almost [address] done revealed enlarged lymph nodes in R axilla and intrathroacic lymph nodes. Also noted were pulmonary nodules, right pleural effusion, liver mets and bone mets. She changed insurance. It should be noted that her BRCA1 and BRCA2 were done, which were negative. 03/2016 - PT started TAxotere/ Cytoxan / Herceptin. She received 6 cycles until 09/27/16. Shew as also placed back on Tamoxifen 06/[address] showed significant response to treatment with resolved pleural effusion, and resolved lymphadenopathy as well as decrease in liver mets and resolved bone mets. 11/2016: pt was on single agent Tamoxifen as she wanted to take a break from infusional therapy. 12/2016: PET CT was done which demonstrated continued decrease in lymphadenopathy and continued decrease in the hepatic mets. osseous mets were stable. 01/2017 was the last time we saw her in clinic. 05/2017 : pt was noted to have recurrent pleural effusions and had a pleurex catheter placed and removed. The cytology was malignant. She was to follow up with me as an outpatient to re-initiate therapy 07/2017 - CT Chest was done which demonstrated loculated pleural effusion concerning for carcinomatosis. Also seen are multiple pulmonary nodules and lymph adenopathy 08/04/[address] : new metabolic uptake in anterior temporal lobe concerning for brain mets. extensive new liver mets, progressive osseous mets and progressive coco mets in the bilateral lower neck, right axilla, chest and abdomen. also seen is a new right pleural effusion. also seen are progressive pulmonary mets. 08/08/17 Brain MRI done revealed mass in right frontal calvarium extending to overlying scalp soft tissue and underling meninges measuring 5cm. also seen is a mass in patience right sphenotemporal buttress extending to dura measuring 1.9 cm. also seen in a left parietal lobe lesion measuring 9mm, there is associated midline shift and no herniation Pt was admitted for neurosurgical evaluation. Constitutional: other (dizziness) Eyes: no complaints ENT: no complaints Respiratory: no complaints, shortness of breath Cardiovascular: no complaints Gastrointestinal: constipation, decreased appetite Musculoskeletal: bone/joint pain Past Medical History metastatic breast cancer Past Surgical History R Breast MRM in 2012 Family History Significant Family History: no pertinent family hx Social History Alcohol Use: none Smoking Status: Never smoker Drug Use: none Exam/Review of Systems Vital Signs Vitals Vital Signs Date Time Temp Pulse Resp B/P Pulse Ox O2 Delivery O2 Flow Rate FiO2 08/09/17 12:00 68 08/09/17 11:00 20 125/72 97 Nasal Cannula 4.0 08/09/17 08:00 98.1 Intake and Output 08/08/17 08/08/17 08/09/17 15:00 23:00 07:00 Intake Total 200 ml Output Total 1050 ml Balance -850 ml Exam Constitutional: alert, oriented Psych: no complaints Head: normocephalic Eyes: nl conjunctiva ENMT: nl external ears & nose Neck: non-tender, supple Respiratory: crackles/rales, diminished breath sounds, labored breathing Cardiovascular: nl pulses, regular rate and rhythm Gastrointestinal: soft Musculoskeletal: nl extremities to inspection Skin: other (s/p R MRM) Results Result Diagram: 08/08/17 2305 08/08/17 2305 Results 24 hrs Laboratory Tests Test 08/08/17 16:00 08/08/17 23:05 White Blood Count 13.4 H 10.5 # Red Blood Count 4.83 4.41 Hemoglobin 10.3 L 9.4 L Hematocrit 33.5 L 30.5 L Mean Corpuscular Volume 69.4 L 69.2 L Mean Corpuscular Hemoglobin 21.3 L 21.3 L Mean Corpuscular Hemoglobin Concent 30.7 L 30.8 L Red Cell Distribution Width 18.0 H 17.7 H Platelet Count 295 235 # Mean Platelet Volume 9.4 9.3 Neutrophils % 78.6 H 75.4 Lymphocytes % 14.8 L 16.3 Monocytes % 5.6 7.5 Eosinophils % 0.1 0.1 Basophils % 0.4 0.3 Nucleated Red Blood Cells % 0.0 0.0 Neutrophils # 10.5 H 7.9 H Lymphocytes # 2.0 1.7 Monocytes # 0.8 0.8 Eosinophils # 0.0 0.0 Basophils # 0.1 0.0 Nucleated Red Blood Cells # 0.0 0.0 Prothrombin Time 14.1 Prothrombin Time Ratio 1.1 INR International Normalized Ratio 1.09 Activated Partial Thromboplast Time 32.8 Sodium Level 137 135 Potassium Level 4.0 3.9 Chloride Level 105 103 Carbon Dioxide Level 22 26 Anion Gap 14 10 Blood Urea Nitrogen 10 10 Creatinine 0.57 0.62 Glucose Level 123 124 Calcium Level 9.2 9.1 Total Bilirubin 0.2 0.3 Direct Bilirubin 0.00 0.00 Indirect Bilirubin 0.2 0.3 Aspartate Amino Transf (AST/SGOT) 59 H 56 H Alanine Aminotransferase (ALT/SGPT) 29 29 Alkaline Phosphatase 107 96 Troponin I < 0.012 B-Type Natriuretic Peptide 77 Total Protein 8.1 7.3 Albumin 4.0 3.3 Globulin 4.10 H 4.00 H Albumin/Globulin Ratio 0.97 0.82 Medications Medications Current Medications Ondansetron HCl (Zofran Inj) 4 mg Q6H PRN IV NAUSEA AND/OR VOMITING; Start at 22:30 Acetaminophen (Tylenol Liquid) 650 mg Q6H PRN PO PAIN LEVEL 1-3 OR FEVER; Start 08/08/17 at 22:30 Morphine Sulfate (morphine) 2 mg Q4H PRN IV PAIN LEVEL 7-10; Start 08/08/17 at 22:30 Famotidine (Pepcid) 20 mg Q12 PO Last administered on 08/09/17 09:34; Admin Dose 20 MG; Start 08/09/17 at 09:00 Dexamethasone (Decadron) 4 mg Q6 IV Last administered on 08/09/17 11:43; Admin Dose 4 MG; Start 08/09/17 at 00:00 ANTWON DYE M.D. Aug 09, 2017 14:09
--- NOTE | 2017-08-09 15:34 | PN ---
Date/Time of Note Date/Time of Note DATE: 08/09/17 TIME: 15:32 Assessment/Plan VTE Prophylaxis VTE Prophylaxis Intervention: SCD's Lines/Catheters IV [facility]from [facility] Saline Lock Urinary Cath still in place: No Assessment/Plan Chief Complaint/Hosp Course Patient is a 46-year-old female with a past medical history of HER-2 and estrogen receptor positive metastatic breast cancer to the lung, liver and brain who presents after feeling dizzy during routine outpatient MRI Assessment Dizziness Metastatic breast cancer, metastases to the lung, liver, brain 6 mm [id number] midline herniation and effacement of the right lateral ventricle Large right-sided pleural effusion Status post right-sided mastectomy Headache Shortness of breath, stable Plan -Attempting to obtain MRI results from [facility] and uploaded into the system, neurosurgery has been consulted, recommends steroids for cerebral edema, questionable resection, recommendations pending -Oncology has also seen the patient, multiple options still available for patients, physical resection versus radiosurgery. -Symptomatic care for now -Decadron for cerebral edema -Pulmonology has been consulted for large right pleural effusion, thoracentesis on hold as patient had recent thoracentesis 5 days ago and quick recurrence, recommend a Pleurx catheter instead, pending placement of catheter -Monitor in ICU Problems: Subjective 24 Hr Interval Summary Free Text/Dictation no SOB or headache at this time Exam/Review of Systems Vital Signs Vitals Vital Signs Date Time Temp Pulse Resp B/P Pulse Ox O2 Delivery O2 Flow Rate FiO2 08/09/17 12:00 68 08/09/17 11:00 20 125/72 97 Nasal Cannula 4.0 08/09/17 08:00 98.1 Intake and Output 08/08/17 08/08/17 08/09/17 15:00 23:00 07:00 Intake Total 200 ml Output Total 1050 ml Balance -850 ml Exam Physical exam General: Patient is laying in bed and answers questions appropriately Mentation: Patient is alert and oriented 4, Head: Normocephalic atraumatic Eyes: EOMI, pupils reactive to light Neck: Supple, nontender, midline Respiratory: dimished breath sounds on the R. Cardiovascular: regular rate, no obvious murmurs Gastrointestinal: non-tender to palpation, bowel sounds heard. Neurological: Moves all extremities spontaneously, very mild strength deficit on L UE Skin: No new skin lesions Results Result Diagram: 08/08/175 08/08/17 2305 Results 24 hrs Laboratory Tests Test 08/08/17 16:00 08/08/17 23:05 White Blood Count 13.4 H 10.5 # Red Blood Count 4.83 4.41 Hemoglobin 10.3 L 9.4 L Hematocrit 33.5 L 30.5 L Mean Corpuscular Volume 69.4 L 69.2 L Mean Corpuscular Hemoglobin 21.3 L 21.3 L Mean Corpuscular Hemoglobin Concent 30.7 L 30.8 L Red Cell Distribution Width 18.0 H 17.7 H Platelet Count 295 235 # Mean Platelet Volume 9.4 9.3 Neutrophils % 78.6 H 75.4 Lymphocytes % 14.8 L 16.3 Monocytes % 5.6 7.5 Eosinophils % 0.1 0.1 Basophils % 0.4 0.3 Nucleated Red Blood Cells % 0.0 0.0 Neutrophils # 10.5 H 7.9 H Lymphocytes # 2.0 1.7 Monocytes # 0.8 0.8 Eosinophils # 0.0 0.0 Basophils # 0.1 0.0 Nucleated Red Blood Cells # 0.0 0.0 Prothrombin Time 14.1 Prothrombin Time Ratio 1.1 INR International Normalized Ratio 1.09 Activated Partial Thromboplast Time 32.8 Sodium Level 137 135 Potassium Level 4.0 3.9 Chloride Level 105 103 Carbon Dioxide Level 22 26 Anion Gap 14 10 Blood Urea Nitrogen 10 10 Creatinine 0.57 0.62 Glucose Level 123 124 Calcium Level 9.2 9.1 Total Bilirubin 0.2 0.3 Direct Bilirubin 0.00 0.00 Indirect Bilirubin 0.2 0.3 Aspartate Amino Transf (AST/SGOT) 59 H 56 H Alanine Aminotransferase (ALT/SGPT) 29 29 Alkaline Phosphatase 107 96 Troponin I < 0.012 B-Type Natriuretic Peptide 77 Total Protein 8.1 7.3 Albumin 4.0 3.3 Globulin 4.10 H 4.00 H Albumin/Globulin Ratio 0.97 0.82 Medications Medications Current Medications Ondansetron HCl (Zofran Inj) 4 mg Q6H PRN IV NAUSEA AND/OR VOMITING; Start at 22:30 Acetaminophen (Tylenol Liquid) 650 mg Q6H PRN PO PAIN LEVEL 1-3 OR FEVER; Start 08/08/17 at 22:30 Morphine Sulfate (morphine) 2 mg Q4H PRN IV PAIN LEVEL 7-10; Start 08/08/17 at 22:30 Famotidine (Pepcid) 20 mg Q12 PO Last administered on 08/09/17 09:34; Admin Dose 20 MG; Start 08/09/17 at 09:00 Dexamethasone (Decadron) 4 mg Q6 IV Last administered on 08/09/17 11:43; Admin Dose 4 MG; Start 08/09/17 at 00:00 JUAN MOTLEY Aug 09, 2017 15:34
--- NOTE | 2017-08-09 20:40 | CONS ---
Date/Time of Note Date/Time of Note DATE: 08/09/17 TIME: 20:31 Assessment/Plan Assessment/Plan Additional Assessment/Plan Large right hemispheric breast metastasis, with midline shift and edema. This is too large to consider treating with primary XRT in my opinion. She will need craniectomy of involved calvarium and reconstruction of the skull with a titanium mesh cranioplasty at the same time as resection of the tumor itself. If there is significant pial invasion she may have left sided weakness. She is right handed so I do not expect a significant speech or cognitive adverse effect. She will need XRT to the resection cavity. I also spoke with her about the possibility that the skin overlying the lesion may be compromised. She expressed her understanding of the risks and benefit of surgery and agrees to proceed. She is to have her right pleural effusion treated tomorrow; craniotomy may be arranged as soon as Monday if cleared by primary service. Thank you. Consultation Date/Type/Reason Admit Date/Time Aug 08, 2017 at 19:54 Date of Consultation: Aug 09, 2017 Type of Consultation: NEUROSURGERY Reason for Consultation large right calvarial metastasis with intradural extension Hx of Present Illness The patient is a 46 year old femalew ith a history of HEr2+ breast CA now presenting with large right calvarial metastatic tumor with dural extension, possible brain invasion, and right frontal vasogenic edema and midline shift of 5mm. Patient has had headache and N/V. She has been followed by Dr. Doan. There is another area on left laurie-atrial white matter that has hemosiderin staining and a blush of hemorrhage, that may represent either a second met or possible a cavernoma. Neurosurgical input regarding management of brain metastases has been requested. Constitutional: other (dizziness) Eyes: no complaints ENT: no complaints Respiratory: no complaints, shortness of breath Cardiovascular: no complaints Gastrointestinal: constipation, decreased appetite Musculoskeletal: bone/joint pain Psychological: no complaints Social History Alcohol Use: none Smoking Status: Never smoker Drug Use: none Exam/Review of Systems Vital Signs Vitals Vital Signs Date Time Temp Pulse Resp B/P Pulse Ox O2 Delivery O2 Flow Rate FiO2 08/09/17 20:10 96 2.0 08/09/17 20:00 98.2 59 23 174/104 Nasal Cannula Intake and Output 08/08/17 08/08/17 08/09/17 15:00 23:00 07:00 Intake Total 200 ml Output Total 1050 ml Balance -850 ml Exam On neurologic examination the patient is doing very well, is awake and alert and following commands briskly. Her speech is fluent and appropriate. She seems cheerful. Her cranial nerve exam is benign with intact extra-ocular movements, pupils equal and reactive, TML, face =. She moves all extremities with full power and has no pronator drift. Results Result Diagram: 08/08/17 2305 08/08/17 2305 Results 24 hrs Laboratory Tests Test 08/08/17 23:05 White Blood Count 10.5 # Red Blood Count 4.41 Hemoglobin 9.4 L Hematocrit 30.5 L Mean Corpuscular Volume 69.2 L Mean Corpuscular Hemoglobin 21.3 L Mean Corpuscular Hemoglobin Concent 30.8 L Red Cell Distribution Width 17.7 H Platelet Count 235 # Mean Platelet Volume 9.3 Neutrophils % 75.4 Lymphocytes % 16.3 Monocytes % 7.5 Eosinophils % 0.1 Basophils % 0.3 Nucleated Red Blood Cells % 0.0 Neutrophils # 7.9 H Lymphocytes # 1.7 Monocytes # 0.8 Eosinophils # 0.0 Basophils # 0.0 Nucleated Red Blood Cells # 0.0 Sodium Level 135 Potassium Level 3.9 Chloride Level 103 Carbon Dioxide Level 26 Anion Gap 10 Blood Urea Nitrogen 10 Creatinine 0.62 Glucose Level 124 Calcium Level 9.1 Total Bilirubin 0.3 Direct Bilirubin 0.00 Indirect Bilirubin 0.3 Aspartate Amino Transf (AST/SGOT) 56 H Alanine Aminotransferase (ALT/SGPT) 29 Alkaline Phosphatase 96 Total Protein 7.3 Albumin 3.3 Globulin 4.00 H Albumin/Globulin Ratio 0.82 Medications Medications Current Medications Ondansetron HCl (Zofran Inj) 4 mg Q6H PRN IV NAUSEA AND/OR VOMITING; Start at 22:30 Acetaminophen (Tylenol Liquid) 650 mg Q6H PRN PO PAIN LEVEL 1-3 OR FEVER; Start 08/08/17 at 22:30 Morphine Sulfate (morphine) 2 mg Q4H PRN IV PAIN LEVEL 7-10; Start 08/08/17 at 22:30 Famotidine (Pepcid) 20 mg Q12 PO Last administered on 08/09/17t 09:34; Admin Dose 20 MG; Start 08/09/17 at 09:00 Dexamethasone (Decadron) 4 mg Q6 IV Last administered on 08/09/17t 17:53; Admin Dose 4 MG; Start 08/09/17 at 00:00 JOEY GRANT MD Aug 09, 2017 20:40
[2017-08-10] VITALS (21 sets, daily range): BP systolic 109–148; BP diastolic 58–113; PULSE 56–82; RESP 14–24
[2017-08-10] MEDS: DEXAMETHASONE 4 MG/ML 1 ML INJ IV SCH ×5 (00:24→23:32)
[2017-08-10 05:29] LABS: BASOPHILS % 0.1 % (0.0-2.0); HEMOGLOBIN 9.6 g/dl (12.0-16.0); LYMPHOCYTES # 1.6 10^3/ul (0.8-2.9); LYMPHOCYTES % 11.4 % (15.0-51.0); MEAN CORPUSCULAR HEMOGLOBIN 21.5 pg (29.0-33.0); MEAN CORPUSCULAR VOLUME 69.5 fl (82.0-101.0); MEAN PLATELET VOLUME 9.9 fl (7.4-10.4); MONOCYTE # 0.6 10^3/ul (0.3-0.9); MONOCYTES % 3.9 % (0.0-11.0); NEUTROPHILS % 83.8 % (39.0-77.0); PLATELET COUNT 283 10^3/UL (140-415); RED BLOOD COUNT 4.46 10^6/ul (4.20-5.40); RED CELL DISTRIBUTION WIDTH 18.1 % (11.5-14.5); WHITE BLOOD COUNT 14.3 10^3/ul (4.8-10.8)
[2017-08-10 05:48] LABS: CALCIUM 9.3 mg/dl (8.4-10.2); CREATININE 0.69 mg/dl (0.44-1.00); MAGNESIUM 1.9 mg/dl (1.7-2.5); POTASSIUM 4.4 mmol/L (3.5-5.1)
[2017-08-10] MEDS: FAMOTIDINE 20 MG TAB PO SCH ×2 (08:13→21:08)
--- NOTE | 2017-08-10 08:37 | RADRPT ---
PROCEDURE: MR Brain with and without intravenous contrast CLINICAL INDICATION: Preoperative planning. History breast cancer. COMPARISON: CT from 08/08/2017. MRI brain from 08/08/2017 performed under the name "Mary Alice Hughes" with accession [id number] and . TECHNIQUE: Multiplanar multi-sequence images of the brain were obtained before and after the unevent ful administration of 10 mL Magnevist intravenous contrast. Images acquired on a 3.0 Samia magnet. FINDINGS: Bones: Multiple masses, consistent with metastases. 1. A mass centered within the right frontal calvarium extends to the overlying scalp soft tissues as well as the underlying meninges and extra-axial space. It measures approximately 4.7 x 4.5 x 4.0 cm . The mass has a large dural tail extending to the frontal and temporal lobe. 2. The mass centered in the right sphenotemporal buttress extends to the dura overlying the anterior right temporal lobe, measuring approximately 1.2 x 1.5 x 1.9 cm. Diffusely low bone marrow signal which may reflect metastases or sequela of chemotherapy. Parenchyma: Multiple parenchymal metastases: 1. An enhancing metastasis containing blood products in the left parietal occipital junction and radha sures about 14 x 11 x 10 mm (AP x TV x SI) , consistent with metastasis. 2. Enhancing metastasis with internal blood products within the medial left parietal lobe adjacent t o measuring about 7 x 5 mm (series 11, image 125). 3. Rounded metastasis in the left cerebellar hemisphere measuring 3 mm (series 10, image 123 and ser ies 14, image 17). This metastasis is better visualized on this examination compared to the MRI from 08/08/2017, although in retrospect, it was present previously (series 11, image 8). 4. 1 mm focal enhancement within the left posterior temporal lobe. This is seen only on a 1 sequence and may represent artifact or a tiny metastasis (series 10, image 111). This metastasis is not seen on the examination a few days ago. Attention is recommended to this area on a follow-up imaging. There is aliasing from the choroid plexus in the left lateral ventricle which creates the appearance of additional metastases (series 9, image 75). However, this is an artifact. The right frontal and opercular sulci are effaced. Moderate amount of vasogenic edema about the extr a-axial mass. Ventricles: Right lateral ventricle is partially effaced. Extra-axial spaces: 5 mm of midline shift to the left. No uncal herniation or cisternal effacement.. Orbits: Normal. Major intracranial flow voids: Preserved. Paranasal sinuses: Clear. Mastoids and middle ears: Clear. Extracranial soft tissues 12 mm fat containing lesion in the midline, suboccipital scalp, consistent with a lipoma or pilonidal inclusion cyst. IMPRESSION: Multiple intracranial metastases are unchanged since 08/08/2017. 1. Large metastasis centered in the right frontal calvarium with overlying scalp component, underlyi ng epidural component, and dural tail. This metastasis contains internal blood products This metasta sis exerts mass effect resulting in adjacent vasogenic edema, partial effacement of the right latera l ventricle, and midline shift to the left by 5 mm. 2. Two small hemorrhagic metastasis at the junction of the left parietal and occipital lobes. 3. Smaller metastasis with dural tail centered in the right sphenotemporal buttress. 4. 3 mm rounded metastasis within the left cerebellar hemisphere which is better characterized on th is examination compared to 08/08/2017. RPTAT: PP Physician Gregory Date Time Electronically viewed and signed by Physician Gregory on 08/10/2017 08:37 /
--- NOTE | 2017-08-10 08:49 | RADRPT ---
PROCEDURE: XR Chest. CLINICAL INDICATION: Shortness of breath. TECHNIQUE: Single frontal view. COMPARISON: 08/08/2017. FINDINGS: There is complete opacification of the right hemithorax, worse than seen previously. If to the media stinum to the left. The left lung is clear and there is no left pleural effusion. The heart size is normal. There is a large right pleural effusion. There is no left pleural effusion. There is no pneumothorax. IMPRESSION: 1. Large right pleural effusion, larger than seen previously with complete opacification of the rig ht hemithorax. 2. Left lung is clear and there is no left pleural effusion. RPTAT: QQ .Itz Parsons MD, MD Date Time Electronically viewed and signed by .Itz Parsons MD, on 08/10/2017 08:48 .R/
--- NOTE | 2017-08-10 10:11 | CONS ---
Date/Time of Note Date/Time of Note DATE: 08/10/17 TIME: 10:08 Consult Date/Type/Reason Admit Date/Time Aug 08, 2017 at 19:54 Initial Consult Date 08/09/17 Type of Consultation: Pulm Ordering Provider: JUAN MOTLEY Subjective Comfortable this morning, no overnight events. Objective Vital Signs Date Time Temp Pulse Resp B/P Pulse Ox O2 Delivery O2 Flow Rate FiO2 08/10/17 09:00 64 22 137/89 96 Nasal Cannula 4.0 08/10/17 08:00 97.6 Intake and Output 08/09/17 08/09/17 08/10/17 15:00 23:00 07:00 Intake Total 560 ml 120 ml Output Total 350 ml 400 ml Balance 210 ml -280 ml Exam PHYSICAL EXAMINATION: GENERAL: Well-nourished, well-developed lady, comfortable at rest. No acute distress. VITAL SIGNS: NECK: Supple. No JVD. No lymphadenopathy. CARDIAC: S1, S2. No added sounds or murmurs. CHEST: Diminished air entry bilaterally. ABDOMEN: Soft, nontender. No guarding or rebound. EXTREMITIES: No cyanosis, clubbing or edema. NEUROLOGICALLY: No focal deficits. Results/Medications Result Diagram: 08/10/17 0442 08/10/17 0442 Results 24 hrs Laboratory Tests Test 08/10/17 04:42 White Blood Count 14.3 #H Red Blood Count 4.46 Hemoglobin 9.6 L Hematocrit 31.0 L Mean Corpuscular Volume 69.5 L Mean Corpuscular Hemoglobin 21.5 L Mean Corpuscular Hemoglobin Concent 31.0 L Red Cell Distribution Width 18.1 H Platelet Count 283 # Mean Platelet Volume 9.9 Neutrophils % 83.8 H Lymphocytes % 11.4 L Monocytes % 3.9 Eosinophils % 0.0 Basophils % 0.1 Nucleated Red Blood Cells % 0.0 Neutrophils # 12.0 H Lymphocytes # 1.6 Monocytes # 0.6 Eosinophils # 0.0 Basophils # 0.0 Nucleated Red Blood Cells # 0.0 Sodium Level 136 Potassium Level 4.4 Chloride Level 105 Carbon Dioxide Level 25 Anion Gap 10 Blood Urea Nitrogen 22 #H Creatinine 0.69 Glucose Level 152 Calcium Level 9.3 Phosphorus Level 4.0 Magnesium Level 1.9 Medications Current Medications Ondansetron HCl (Zofran Inj) 4 mg Q6H PRN IV NAUSEA AND/OR VOMITING; Start at 22:30 Acetaminophen (Tylenol Liquid) 650 mg Q6H PRN PO PAIN LEVEL 1-3 OR FEVER; Start 08/08/17 at 22:30 Morphine Sulfate (morphine) 2 mg Q4H PRN IV PAIN LEVEL 7-10; Start 08/08/17 at 22:30 Famotidine (Pepcid) 20 mg Q12 PO Last administered on 08/10/17 08:13; Admin Dose 20 MG; Start 08/09/17 at 09:00 Dexamethasone (Decadron) 4 mg Q6 IV Last administered on 08/10/17 06:00; Admin Dose 4 MG; Start 08/09/17 at 00:00 Assessment/Plan Chief Complaint/Hosp Course IMPRESSION: 1. Recurrent right pleural effusion, likely secondary to underlying metastatic breast cancer. Right lung opacification secondary to pleural effusion , pending pleurex catheter. 2. New central nervous system ([employer]) lesions with cerebral edema. Pending resection. PLAN: 1. The patient to have a PleurX catheter placed for recurrent pleural effusions. 2. Continue steroids for cerebral edema. 3. Neurosurgical recommendations. Possible surgery tomorrow. 4. Consider palliative care consultation as overall prognosis is guarded. Problems: MARTINEZ MASCORRO MD, [facility] Aug 10, 2017 10:11
--- NOTE | 2017-08-10 10:29 | PN ---
Date/Time of Note Date/Time of Note DATE: 08/10/17 TIME: 10:25 Assessment/Plan VTE Prophylaxis VTE Prophylaxis Intervention: SCD's Lines/Catheters IV [facility]ter Type (from [facility]): Saline Lock Urinary Cath still in place: No Assessment/Plan Chief Complaint/Hosp Course Patient is a 46-year-old female with a past medical history of HER-2 and estrogen receptor positive metastatic breast cancer to the lung, liver and brain who presents after feeling dizzy during routine outpatient MRI Assessment Dizziness Metastatic breast cancer, metastases to the lung, liver, brain 6 mm [id number] midline herniation and effacement of the right lateral ventricle Large right-sided pleural effusion Status post right-sided mastectomy Headache Shortness of breath, stable Plan -Neurosurgery planning craniotomy tomorrow or monday, pending clearance. -pleurex catheter today, if vitals and symptoms WNL after catheter place and respiratory status improved, patient is moderate risk. -Oncology has also seen the patient, multiple options still available for patients, physical resection versus radiosurgery. -Symptomatic care for now -Decadron for cerebral edema -Monitor in ICU Problems: Subjective 24 Hr Interval Summary Free Text/Dictation no headache, feels well Exam/Review of Systems Vital Signs Vitals Vital Signs Date Time Temp Pulse Resp B/P Pulse Ox O2 Delivery O2 Flow Rate FiO2 08/10/17 09:00 64 22 137/89 96 Nasal Cannula 4.0 08/10/17 08:00 97.6 Intake and Output 08/09/17 08/09/17 08/10/17 15:00 23:00 07:00 Intake Total 560 ml 120 ml Output Total 350 ml 400 ml Balance 210 ml -280 ml Exam Physical exam General: Patient is laying in bed and answers questions appropriately Mentation: Patient is alert and oriented 4, Head: Normocephalic atraumatic Eyes: EOMI, pupils reactive to light Neck: Supple, nontender, midline Respiratory: dimished breath sounds on the R. Cardiovascular: regular rate, no obvious murmurs Gastrointestinal: non-tender to palpation, bowel sounds heard. Neurological: Moves all extremities spontaneously, very mild strength deficit on L UE Skin: No new skin lesions Results Result Diagram: 08/10/17 0442 08/10/17 0442 Results 24 hrs Laboratory Tests Test 08/10/17 04:42 White Blood Count 14.3 #H Red Blood Count 4.46 Hemoglobin 9.6 L Hematocrit 31.0 L Mean Corpuscular Volume 69.5 L Mean Corpuscular Hemoglobin 21.5 L Mean Corpuscular Hemoglobin Concent 31.0 L Red Cell Distribution Width 18.1 H Platelet Count 283 # Mean Platelet Volume 9.9 Neutrophils % 83.8 H Lymphocytes % 11.4 L Monocytes % 3.9 Eosinophils % 0.0 Basophils % 0.1 Nucleated Red Blood Cells % 0.0 Neutrophils # 12.0 H Lymphocytes # 1.6 Monocytes # 0.6 Eosinophils # 0.0 Basophils # 0.0 Nucleated Red Blood Cells # 0.0 Sodium Level 136 Potassium Level 4.4 Chloride Level 105 Carbon Dioxide Level 25 Anion Gap 10 Blood Urea Nitrogen 22 #H Creatinine 0.69 Glucose Level 152 Calcium Level 9.3 Phosphorus Level 4.0 Magnesium Level 1.9 Medications Medications Current Medications Ondansetron HCl (Zofran Inj) 4 mg Q6H PRN IV NAUSEA AND/OR VOMITING; Start at 22:30 Acetaminophen (Tylenol Liquid) 650 mg Q6H PRN PO PAIN LEVEL 1-3 OR FEVER; Start 08/08/17 at 22:30 Morphine Sulfate (morphine) 2 mg Q4H PRN IV PAIN LEVEL 7-10; Start 08/08/17 at 22:30 Famotidine (Pepcid) 20 mg Q12 PO Last administered on 08/10/17 08:13; Admin Dose 20 MG; Start 08/09/17 at 09:00 Dexamethasone (Decadron) 4 mg Q6 IV Last administered on 08/10/17 06:00; Admin Dose 4 MG; Start 08/09/17 at 00:00 JUAN MOTLEY Aug 10, 2017 10:29
[2017-08-10] MEDS ORDERED: LIDOCAINE 1% (MDV) 20 ML INJ ONE (11:15)
[2017-08-10] MEDS ORDERED: PROPOFOL 0 ML ONE (12:14)
[2017-08-10] MEDS ORDERED: MIDAZOLAM 1 MG/ML 2 ML INJ ONE (12:15)
--- NOTE | 2017-08-10 13:31 | RADRPT ---
PROCEDURE: ULTRASOUND AND FLUOROSCOPICALLY-GUIDED PERCUTANEOUS PLACEMENT OF TUNNELED RIGHT PLEURAL DRAINAGE CATHETER. CLINICAL INDICATION: Large right pleural effusion and shortness of breath. TECHNIQUE: Prior to the procedure, informed consent was obtained. Risks including bleeding, infection, and pneu mothorax were explained to the patient. The patient understood and was willing to proceed. A procedu ral pause was performed. The patient's name, date of , and procedure to be performed were verif ied. The central line was inserted with all elements of maximal sterile barrier technique. All of th e following were used: head covering, facial mask, sterile gown, sterile gloves, a large sterile she et, hand hygiene, and 2% chlorhexidine for cutaneous antisepsis. The right lateral chest wall was prepped and draped in the usual sterile fashion. Limited sonography of the right side of chest was then performed. Noted is a large right pleural eff usion. Ultrasound images were recorded and stored in the patient's medical record. Following the local injection of Xylocaine, the right pleural space was punctured under sonographic guidance posterior laterally at the 8/9 rib interspace with an 18-gauge needle through which a 0.035 inch floppy tip guidewire was advanced into the right pleural space. Following this, the catheter was tunneled subcutaneously in the right chest wall. The cuff of the catheter was positioned in the subcutaneous tissues within the tunnel approximately 2 cm from the exit site of the catheter. Serial dilatation was then performed to 16-Qatari and a 16-Qatari peel-away sheath was advanced over the g uidewire. The 15.5 Qatari Pleurex pleural catheter was advanced through the peel-away sheath into th e right pleural space. Pleural fluid was aspirated, to verify position. The peel-away sheath was rem misbah. The subcutaneous tissues were closed with running 3-0 Vicryl. The skin wound was then closed u sing 4-0 Vicryl and a running subcuticular technique. The catheter was secured to the skin with 2-0 silk suture. The site was dressed. The patient tolerated the procedure well. 2 liters pleural fluid was aspirated out of the catheter without problem. COMPARISON: Chest x-ray done earlier the same day. FINDINGS: The final images demonstrate the pleural catheter within the right pleural space. Total fluoroscopy time is 0.1 minutes. 4 images of the chest were obtained with image intensifier. IMPRESSION: 1. Satisfactory percutaneous insertion of tunneled right pleural drainage catheter with ultrasound a nd fluoroscopic guidance. RPTAT: QQ .Itz Parsons MD, MD Date Time Electronically viewed and signed by .Itz Parsons MD, on 08/10/2017 13:31 .R/
--- NOTE | 2017-08-10 14:12 | RADRPT ---
PROCEDURE: Ultrasound guidance for placement of needle in right pleural space. CLINICAL INDICATION: Large malignant right pleural effusion. TECHNIQUE: Prior to the procedure, informed consent was obtained. Risks including bleeding, infection, and pneu mothorax were explained to the patient. The patient understood and was willing to proceed. A procedu ral pause was performed. The patient's name, date of , and procedure to be performed were verif ied. The central line was inserted with all elements of maximal sterile barrier technique. All of th e following were used: head covering, facial mask, sterile gown, sterile gloves, a large sterile she et, hand hygiene, and 2% chlorhexidine for cutaneous antisepsis. The right neck and anterior/super ior chest wall was prepped and draped in usual sterile fashion. Limited sonography of the right pleural space was then performed. Noted is a large right pleural eff usion. Ultrasound images were recorded and stored in the patient's medical record. Following the local injection of Xylocaine, the right the pleural space vein was punctured under son ographic guidance with 18-gauge needle through which a 0.035 inch floppy tip guidewire was advanced into the right pleural space. The patient tolerated the procedure well. The remainder of the proce dure was performed and dictated under separate cover. COMPARISON: None. FINDINGS: The ultrasound images demonstrate a large right pleural effusion. The subsequent images demonstrate the needle entering the right pleural space. IMPRESSION: 1. Ultrasound guidance for a needle placement in right the pleural space. RPTAT: QQ .Itz Parsons MD, Date Time Electronically viewed and signed by .Itz Parsons MD, MD on 08/10/2017 14:12 .R/
[2017-08-10 14:48] LABS: FLD PMN% 3.3 %; FLD RBC 12 /uL; FLD WBC 1032 /cmm
[2017-08-10 14:50] LABS: FLUID TYPE PLEURAL FLUID
[2017-08-10 14:55] LABS: FLUID TOTAL PROTEIN 5.3 g/dl
[2017-08-10 14:57] LABS: FLUID GLUCOSE 136 mg/dl; FLUID TYPE PLEURAL FLUID
[2017-08-10 15:12] LABS: FLD CLARITY CLOUDY; FLD COLOR ORANGE; FLD MN% 96.7 %; FLD TYPE PLEURAL
[2017-08-10] MEDS: ACETAMINOPHEN 650MG/20.3ML CUP PO PRN (17:24)
--- NOTE | 2017-08-10 22:31 | CONS ---
Date/Time of Note Date/Time of Note DATE: 08/10/17 TIME: 22:28 Assessment/Plan Assessment/Plan Chief Complaint/Hosp Course #Her2+/ER+/UT+ metastatic breast ca -pt is non compliant and when she receives therapy, she is quite responsive to therapy -therefore at this time, although she has terminal disease, there are still many more treatment options which she could benefit from -given her Brain mets, I would consider a combination of Xeloda and Lapatinib which can penetrate the blood brain barrier -once she stabilizes can restart Tamoxifen as well #Brain Mets -appreciate neurosurgery recs -pt scheduled for surgical resection of these tumors -will refer the patient to rad onc as well as she will need this regardless, post operatively -continue current dose of Decadron at 6mv IV q 6 #Pleural Effusion -s/p pleurex catheter placement -will check cytology and re-evaluate her prognostic markers Problems: Consultation Date/Type/Reason Admit Date/Time Aug 08, 2017 at 19:54 Initial Consult Date 08/09/17 Type of Consultation: Oncology Reason for Consultation metastatic her 2 positive breast cancer to brain Referring Provider: JUAN MOTLEY 24 HR Interval Summary Free Text/Dictation pleurex catheter placed yesterday Exam/Review of Systems Vital Signs Vitals Vital Signs Date Time Temp Pulse Resp B/P Pulse Ox O2 Delivery O2 Flow Rate FiO2 08/10/17 21:00 62 18 125/92 97 Room Air 08/10/17 20:54 21 08/10/17 19:00 98.5 08/10/17 18:00 4.0 Intake and Output 08/09/17 08/09/17 08/10/17 15:00 23:00 07:00 Intake Total 560 ml 120 ml Output Total 350 ml 400 ml Balance 210 ml -280 ml Exam Constitutional: alert, oriented Psych: no complaints Head: normocephalic Eyes: nl conjunctiva ENMT: nl external ears & nose Neck: supple Respiratory: diminished breath sounds Cardiovascular: regular rate and rhythm Gastrointestinal: soft Results Result Diagram: 08/10/17 0442 08/10/172 Results 24 hrs Laboratory Tests Test 08/10/17 04:42 08/10/17 12:50 White Blood Count 14.3 #H Red Blood Count 4.46 Hemoglobin 9.6 L Hematocrit 31.0 L Mean Corpuscular Volume 69.5 L Mean Corpuscular Hemoglobin 21.5 L Mean Corpuscular Hemoglobin Concent 31.0 L Red Cell Distribution Width 18.1 H Platelet Count 283 # Mean Platelet Volume 9.9 Neutrophils % 83.8 H Lymphocytes % 11.4 L Monocytes % 3.9 Eosinophils % 0.0 Basophils % 0.1 Nucleated Red Blood Cells % 0.0 Neutrophils # 12.0 H Lymphocytes # 1.6 Monocytes # 0.6 Eosinophils # 0.0 Basophils # 0.0 Nucleated Red Blood Cells # 0.0 Sodium Level 136 Potassium Level 4.4 Chloride Level 105 Carbon Dioxide Level 25 Anion Gap 10 Blood Urea Nitrogen 22 #H Creatinine 0.69 Glucose Level 152 Calcium Level 9.3 Phosphorus Level 4.0 Magnesium Level 1.9 Body Fluid Type PLEURAL FLUID Body Fluid Volume 20.0 Body Fluid Color ORANGE Body Fluid Appearance CLOUDY Body Fluid WBC 1032 Body Fluid RBC (Auto) 12 Body Fluid Polynuclear WBCs (%) 3.3 Body Fluid Mononuclear Cells % Auto 96.7 Body Fluid Glucose 136 Body Fluid Total Protein 5.3 Body Fluid Lactate Dehydrogenase Medications Medications Current Medications Ondansetron HCl (Zofran Inj) 4 mg Q6H PRN IV NAUSEA AND/OR VOMITING; Start at 22:30 Acetaminophen (Tylenol Liquid) 650 mg Q6H PRN PO PAIN LEVEL 1-3 OR FEVER Last administered on 08/10/17 17:24; Admin Dose 650 MG; Start 08/08/17 at 22:30 Morphine Sulfate (morphine) 2 mg Q4H PRN IV PAIN LEVEL 7-10; Start 08/08/17 at 22:30 Famotidine (Pepcid) 20 mg Q12 PO Last administered on 08/10/17 21:08; Admin Dose 20 MG; Start 08/09/17 at 09:00 Dexamethasone (Decadron) 4 mg Q6 IV Last administered on 08/10/17 17:55; Admin Dose 4 MG; Start 08/09/17 at 00:00 ANTWON DYE M.D. Aug 10, 2017 22:31
[2017-08-11] VITALS (32 sets, daily range): BP systolic 88–149; BP diastolic 54–126; PULSE 48–108; RESP 10–26
[2017-08-11] MEDS: ACETAMINOPHEN 650MG/20.3ML CUP PO PRN (00:32)
[2017-08-11 05:14] LABS: BASOPHILS % 0.1 % (0.0-2.0); HEMATOCRIT 33.8 % (37.0-47.0); HEMOGLOBIN 10.2 g/dl (12.0-16.0); LYMPHOCYTES # 2.1 10^3/ul (0.8-2.9); LYMPHOCYTES % 10.7 % (15.0-51.0); MEAN CORPUSCULAR HEMOGLOBIN 20.9 pg (29.0-33.0); MEAN CORPUSCULAR HGB CONC 30.2 g/dl (32.0-37.0); MEAN CORPUSCULAR VOLUME 69.4 fl (82.0-101.0); MEAN PLATELET VOLUME 9.5 fl (7.4-10.4); MONOCYTE # 0.7 10^3/ul (0.3-0.9); MONOCYTES % 3.5 % (0.0-11.0); NEUTROPHIL # 16.5 10^3/ul (1.6-7.5); NEUTROPHILS % 84.7 % (39.0-77.0); PLATELET COUNT 334 10^3/UL (140-415); RED BLOOD COUNT 4.87 10^6/ul (4.20-5.40); RED CELL DISTRIBUTION WIDTH 18.6 % (11.5-14.5); WHITE BLOOD COUNT 19.5 10^3/ul (4.8-10.8)
[2017-08-11] MEDS: DEXAMETHASONE 4 MG/ML 1 ML INJ IV SCH ×4 (05:40→23:42)
[2017-08-11 05:44] LABS: CALCIUM 9.3 mg/dl (8.4-10.2); CREATININE 0.66 mg/dl (0.44-1.00); MAGNESIUM 2.1 mg/dl (1.7-2.5); PHOSPHORUS 3.8 mg/dl (2.5-4.9); POTASSIUM 4.6 mmol/L (3.5-5.1)
[2017-08-11] MEDS ORDERED: PROPOFOL 1000 MG INJ ONE (07:00)
[2017-08-11] MEDS ORDERED: ROCURONIUM 50 MG INJ ONE ×3 (07:00→18:32)
--- NOTE | 2017-08-11 08:39 | RADRPT ---
PROCEDURE: XR Chest. CLINICAL INDICATION: Shortness of breath. TECHNIQUE: Single frontal view. COMPARISON: 08/10/2017. FINDINGS: There is a new right chest tube in satisfactory position. Previously noted large right pleural effus ion is no longer present. There is only minimal right pleural fluid inferiorly and laterally. There is patchy consolidation in the right mid and lower lung zones. The left lung is clear and there is n o left pleural effusion. The heart is enlarged. There is no pneumothorax. IMPRESSION: 1. Marked improvement in the appearance of the right lung and right pleural fluid. 2. Cardiomegaly. 3. No left pleural effusion. RPTAT: QQ .Itz Parsons MD, MD Date Time Electronically viewed and signed by .Itz Parsons MD, on 08/11/2017 08:38 .R/
[2017-08-11] MEDS: FAMOTIDINE 20 MG TAB PO SCH ×2 (09:00→21:00)
--- NOTE | 2017-08-11 09:56 | PN ---
Date/Time of Note Date/Time of Note DATE: 08/11/17 TIME: 09:54 Assessment/Plan VTE Prophylaxis VTE Prophylaxis Intervention: SCD's Lines/Catheters IV [facility]ter [facility]from [facility] [place] [facility] Urinary Cath still in place: No Assessment/Plan Chief Complaint/Hosp Course Patient is a 46-year-old female with a past medical history of HER-2 and estrogen receptor positive metastatic breast cancer to the lung, liver and brain who presents after feeling dizzy during routine outpatient MRI Assessment Dizziness Metastatic breast cancer, metastases to the lung, liver, brain 6 mm [id number] midline herniation and effacement of the right lateral ventricle Large right-sided pleural effusion Status post right-sided mastectomy Headache Shortness of breath, stable Plan -Neurosurgery to perform craniotomy today. -pleurex catheter inserted, draining well. -Oncology has also seen the patient, multiple options still available for patients, physical resection versus radiosurgery. -Symptomatic care for now -Decadron for cerebral edema -Monitor in ICU -will dispo accordingly depending on how surgery goes. Problems: Subjective 24 Hr Interval Summary Free Text/Dictation patient is breathing much easier s/p pleurex cath. pending surgery today. Exam/Review of Systems Vital Signs Vitals Vital Signs Date Time Temp Pulse Resp B/P Pulse Ox O2 Delivery O2 Flow Rate FiO2 08/11/17 09:00 53 17 112/66 100 Room Air 08/11/17 08:00 98.3 08/10/17 20:54 21 08/10/17 18:00 4.0 Intake and Output 08/10/17 08/10/17 08/11/17 15:00 23:00 07:00 Intake Total 200 ml 100 ml 50 ml Output Total 4000 ml Balance -3800 ml 100 ml 50 ml Exam Physical exam General: Patient is laying in bed and answers questions appropriately Mentation: Patient is alert and oriented 4, Head: Normocephalic atraumatic Eyes: EOMI, pupils reactive to light Neck: Supple, nontender, midline Respiratory: dimished breath sounds on the R. Cardiovascular: regular rate, no obvious murmurs Gastrointestinal: non-tender to palpation, bowel sounds heard. Neurological: Moves all extremities spontaneously, very mild strength deficit on L UE Skin: No new skin lesions, R chest pleurex catheter Results Result Diagram: 9/29/17 0428 9/29/17 0428 Results 24 hrs Laboratory Tests Test 08/10/17 12:50 08/11/17 04:28 Body Fluid Type PLEURAL FLUID Body Fluid Volume 20.0 Body Fluid Color ORANGE Body Fluid Appearance CLOUDY Body Fluid WBC 1032 Body Fluid RBC (Auto) 12 Body Fluid Polynuclear WBCs (%) 3.3 Body Fluid Mononuclear Cells % Auto 96.7 Body Fluid Glucose 136 Body Fluid Total Protein 5.3 Body Fluid Lactate Dehydrogenase White Blood Count 19.5 #H Red Blood Count 4.87 Hemoglobin 10.2 L Hematocrit 33.8 L Mean Corpuscular Volume 69.4 L Mean Corpuscular Hemoglobin 20.9 L Mean Corpuscular Hemoglobin Concent 30.2 L Red Cell Distribution Width 18.6 H Platelet Count 334 Mean Platelet Volume 9.5 Neutrophils % 84.7 H Lymphocytes % 10.7 L Monocytes % 3.5 Eosinophils % 0.0 Basophils % 0.1 Nucleated Red Blood Cells % 0.0 Neutrophils # 16.5 H Lymphocytes # 2.1 Monocytes # 0.7 Eosinophils # 0.0 Basophils # 0.0 Nucleated Red Blood Cells # 0.0 Sodium Level 136 Potassium Level 4.6 Chloride Level 104 Carbon Dioxide Level 26 Anion Gap 11 Blood Urea Nitrogen 27 H Creatinine 0.66 Glucose Level 142 Calcium Level 9.3 Phosphorus Level 3.8 Magnesium Level 2.1 Medications Medications Current Medications Ondansetron HCl (Zofran Inj) 4 mg Q6H PRN IV NAUSEA AND/OR VOMITING; Start at 22:30 Acetaminophen (Tylenol Liquid) 650 mg Q6H PRN PO PAIN LEVEL 1-3 OR FEVER Last administered on 08/11/17 00:32; Admin Dose 650 MG; Start 08/08/17 at 22:30 Morphine Sulfate (morphine) 2 mg Q4H PRN IV PAIN LEVEL 7-10; Start 08/08/17 at 22:30 Famotidine (Pepcid) 20 mg Q12 PO Last administered on 08/10/17 21:08; Admin Dose 20 MG; Start 08/09/17 at 09:00 Dexamethasone (Decadron) 4 mg Q6 IV Last administered on 08/11/17 05:40; Admin Dose 4 MG; Start 08/09/17 at 00:00 JUAN MOTLEY Aug 11, 2017 09:56
--- NOTE | 2017-08-11 10:23 | CONS ---
Date/Time of Note Date/Time of Note DATE: 08/11/17 TIME: 10:21 Consult Date/Type/Reason Admit Date/Time Aug 08, 2017 at 19:54 Initial Consult Date 08/09/17 Type of Consultation: Pulmonary Ordering Provider: JUAN MOTLEY Subjective Stable this morning after placement of Pleurx catheter. Significant improvement in right lung pleural effusion. Denies shortness of breath chest pain or palpitations. Currently n.p.o. pending neurosurgery. Objective Vital Signs Date Time Temp Pulse Resp B/P Pulse Ox O2 Delivery O2 Flow Rate FiO2 08/11/17 09:00 53 17 112/66 100 Room Air 08/11/17 08:00 98.3 08/10/17 20:54 21 08/10/17 18:00 4.0 Intake and Output 08/10/17 08/10/17 08/11/17 15:00 23:00 07:00 Intake Total 200 ml 100 ml 50 ml Output Total 4000 ml Balance -3800 ml 100 ml 50 ml Exam PHYSICAL EXAMINATION: GENERAL: Well-nourished, well-developed lady, comfortable at rest. No acute distress. VITAL SIGNS: NECK: Supple. No JVD. No lymphadenopathy. CARDIAC: S1, S2. No added sounds or murmurs. CHEST: Diminished air entry bilaterally. ABDOMEN: Soft, nontender. No guarding or rebound. EXTREMITIES: No cyanosis, clubbing or edema. NEUROLOGICALLY: No focal deficits. Results/Medications Result Diagram: 08/11/17 0428 08/11/17 0428 Results 24 hrs Laboratory Tests Test 08/10/17 12:50 08/11/17 04:28 Body Fluid Type PLEURAL FLUID Body Fluid Volume 20.0 Body Fluid Color ORANGE Body Fluid Appearance CLOUDY Body Fluid WBC 1032 Body Fluid RBC (Auto) 12 Body Fluid Polynuclear WBCs (%) 3.3 Body Fluid Mononuclear Cells % Auto 96.7 Body Fluid Glucose 136 Body Fluid Total Protein 5.3 Body Fluid Lactate Dehydrogenase White Blood Count 19.5 #H Red Blood Count 4.87 Hemoglobin 10.2 L Hematocrit 33.8 L Mean Corpuscular Volume 69.4 L Mean Corpuscular Hemoglobin 20.9 L Mean Corpuscular Hemoglobin Concent 30.2 L Red Cell Distribution Width 18.6 H Platelet Count 334 Mean Platelet Volume 9.5 Neutrophils % 84.7 H Lymphocytes % 10.7 L Monocytes % 3.5 Eosinophils % 0.0 Basophils % 0.1 Nucleated Red Blood Cells % 0.0 Neutrophils # 16.5 H Lymphocytes # 2.1 Monocytes # 0.7 Eosinophils # 0.0 Basophils # 0.0 Nucleated Red Blood Cells # 0.0 Sodium Level 136 Potassium Level 4.6 Chloride Level 104 Carbon Dioxide Level 26 Anion Gap 11 Blood Urea Nitrogen 27 H Creatinine 0.66 Glucose Level 142 Calcium Level 9.3 Phosphorus Level 3.8 Magnesium Level 2.1 Medications Current Medications Ondansetron HCl (Zofran Inj) 4 mg Q6H PRN IV NAUSEA AND/OR VOMITING; Start at 22:30 Acetaminophen (Tylenol Liquid) 650 mg Q6H PRN PO PAIN LEVEL 1-3 OR FEVER Last administered on 08/11/17 00:32; Admin Dose 650 MG; Start 08/08/17 at 22:30 Morphine Sulfate (morphine) 2 mg Q4H PRN IV PAIN LEVEL 7-10; Start 08/08/17 at 22:30 Famotidine (Pepcid) 20 mg Q12 PO Last administered on 08/10/17 21:08; Admin Dose 20 MG; Start 08/09/17 at 09:00 Dexamethasone (Decadron) 4 mg Q6 IV Last administered on 08/11/17 05:40; Admin Dose 4 MG; Start 08/09/17 at 00:00 Assessment/Plan Chief Complaint/Hosp Course IMPRESSION: 1. Recurrent right pleural effusion, likely secondary to underlying metastatic breast cancer. Right lung opacification secondary to pleural effusion , status post Pleurx catheter placement. Continue drainage daily. 2. 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 Pending resection scheduled for today. PLAN: 1. Continue Pleurx catheter drainage daily. 2. Continue steroids for cerebral edema. 3. Neurosurgical recommendations. Neurosurgery today. Critical care time 40 minutes. Problems: MARTINEZ MASCORRO MD, [facility] Aug 11, 2017 10:23
[2017-08-11] MEDS ORDERED: GELATIN SIZE 100 SPONGE ONE (14:31)
[2017-08-11] MEDS ORDERED: THROMBIN 5000 UNIT VIAL ONE (14:31)
[2017-08-11] MEDS ORDERED: LIDOCAINE 0.5% (MDV) 50 ML INJ ONE (14:31)
[2017-08-11] MEDS ORDERED: BACITRACIN 50000 UNITS INJ ONE ×2 (15:26→19:02)
[2017-08-11] MEDS ORDERED: MIDAZOLAM 1 MG/ML 2 ML INJ ONE (15:28)
[2017-08-11] MEDS ORDERED: PROPOFOL 20 ML ONE (15:28)
[2017-08-11] MEDS ORDERED: LIDOCAINE 1% (MDV) 20 ML INJ ONE (15:29)
[2017-08-11] MEDS ORDERED: BACITRACIN/POLYMYXIN 28.35 GM OINT TOP ONE (17:14)
[2017-08-11] MEDS ORDERED: LIDOCAINE 2%/EPI 30 ML INJ ONE (17:14)
--- NOTE | 2017-08-11 17:15 | HPN ---
Date/Time of Note Date/Time of Note DATE: 08/11/17 TIME: 17:14 Interval H&P Admission Note Pt. seen H&P reviewed: No system changes JOEY GRANT MD Aug 11, 2017 17:14
[2017-08-11] MEDS ORDERED: MANNITOL 25% 50 ML INJ IV SCH ×3 (17:30→19:30)
[2017-08-11] MEDS ORDERED: VANCOMYCIN 1 GM (PMX) 250 ML ONE (18:02)
[2017-08-11] MEDS ORDERED: FENTAnyl 50 MCG/ML VIAL ONE (18:08)
[2017-08-11] MEDS ORDERED: ONDANSETRON 4 MG INJ ONE (18:18)
[2017-08-11] MEDS ORDERED: FAMOTIDINE 20 MG INJ ONE (18:19)
[2017-08-11] MEDS ORDERED: DEXAMETHASONE 4 MG/ML 1 ML INJ ONE (18:19)
[2017-08-11] MEDS ORDERED: LABETALOL HCL 20MG INJ ONE (18:42)
[2017-08-11] MEDS ORDERED: HYDROmorphONE 2 MG/ML SYG ONE ×2 (18:43→20:25)
[2017-08-11] MEDS ORDERED: LEVETIRACETAM 500 MG (PMX) 100 ML IVPB SCH (19:30)
--- NOTE | 2017-08-11 20:27 | SIPON ---
Date/Time of Note Date/Time of Note DATE: 08/11/17 TIME: 20:25 Operative Report Preoperative Diagnosis BREAST METASTASIS Postoperative Diagnosis HARLEEN Operation/Procedure Performed right frontal craniectomy, resection of tumor, microscope, image guidance, titanium mesh cranioplasty Surgeon see signature line periodontal assistant none Anesthesia: general Estimated blood loss: 50 - 100 ml's Transfusion Required none Specimen bone and brain tumor Grafts/Implants none Complications none JOEY GRANT MD Aug 11, 2017 20:27
[2017-08-11] MEDS ORDERED: FENTAnyl (DRIP) 1000 mcg/100mL 100 ML IV ONE (20:51)
[2017-08-11] MEDS ORDERED: PROPOFOL 100 ML ONE (20:52)
[2017-08-11] MEDS ORDERED: ONDANSETRON 4 MG INJ IV PRN (21:30)
[2017-08-11] MEDS ORDERED: LABETALOL HCL 20MG INJ IV PRN (21:30)
[2017-08-11] MEDS ORDERED: hydrALAzine 20 MG INJ IV PRN (21:30)
--- NOTE | 2017-08-11 21:48 | CONS ---
Date/Time of Note Date/Time of Note DATE: 08/11/17 TIME: 21:38 Assessment/Plan Assessment/Plan Chief Complaint/Hosp Course 46 yo with metastatic breast cancer, who was off therapy for at least 5 month, who presents with recurrent pleural effusion and large brain metastasis. #Her2+/ER+/MS+ metastatic breast ca -pt is non compliant but when she receives therapy, she is quite responsive to therapy -therefore at this time, although she has terminal disease, there are still many more treatment options which she could benefit from -given her Brain mets, I would consider a combination of Xeloda and Lapatinib which can penetrate the blood brain barrier -once she stabilizes can restart Tamoxifen as well #Brain Mets -appreciate neurosurgery recs - now s/p right frontal craniectomy, resection of tumor, microscope, image guidance, titanium mesh cranioplast -will refer the patient to rad onc once she stabilizes for post op radiation -decrease to Decadron at 6mv IV q 8 #Pleural Effusion -s/p pleurex catheter placement -will check cytology and re-evaluate her prognostic markers A total 40 min was spent face to face in speaking with the patient of which > 50 % was spent in counseling and coordination fo care and details question and answer session Problems: Consultation Date/Type/Reason Admit Date/Time Aug 08, 2017 at 19:54 Initial Consult Date 08/09/17 Type of Consultation: Oncology Reason for Consultation metastatic breast cancer Referring Provider: JUAN MOTLEY 24 HR Interval Summary Free Text/Dictation pt seen in AM prior to surgery pt's shortness of breath was improved. awaiting surgery Constitutional: improved Exam/Review of Systems Vital Signs Vitals Vital Signs Date Time Temp Pulse Resp B/P Pulse Ox O2 Delivery O2 Flow Rate FiO2 08/11/17 21:21 98.4 08/11/17 21:18 104 14 99 50 08/11/17 16:00 139/93 Room Air 08/10/17 18:00 4.0 Intake and Output 08/10/17 08/10/17 08/11/17 15:00 23:00 07:00 Intake Total 200 ml 100 ml 50 ml Output Total 4000 ml Balance -3800 ml 100 ml 50 ml Exam Constitutional: alert, oriented Head: normocephalic Eyes: nl conjunctiva ENMT: nl external ears & nose Neck: non-tender, supple Respiratory: diminished breath sounds, other (pleurex drain in place) Cardiovascular: regular rate and rhythm Gastrointestinal: soft Musculoskeletal: nl extremities to inspection Results Result Diagram: 08/11/1742708/11/17427 Results 24 hrs Laboratory Tests Test 08/11/17 04:28 White Blood Count 19.5 #H Red Blood Count 4.87 Hemoglobin 10.2 L Hematocrit 33.8 L Mean Corpuscular Volume 69.4 L Mean Corpuscular Hemoglobin 20.9 L Mean Corpuscular Hemoglobin Concent 30.2 L Red Cell Distribution Width 18.6 H Platelet Count 334 Mean Platelet Volume 9.5 Neutrophils % 84.7 H Lymphocytes % 10.7 L Monocytes % 3.5 Eosinophils % 0.0 Basophils % 0.1 Nucleated Red Blood Cells % 0.0 Neutrophils # 16.5 H Lymphocytes # 2.1 Monocytes # 0.7 Eosinophils # 0.0 Basophils # 0.0 Nucleated Red Blood Cells # 0.0 Sodium Level 136 Potassium Level 4.6 Chloride Level 104 Carbon Dioxide Level 26 Anion Gap 11 Blood Urea Nitrogen 27 H Creatinine 0.66 Glucose Level 142 Calcium Level 9.3 Phosphorus Level 3.8 Magnesium Level 2.1 Medications Medications Current Medications Ondansetron HCl (Zofran Inj) 4 mg Q6H PRN IV NAUSEA AND/OR VOMITING; Start at 22:30 Acetaminophen (Tylenol Liquid) 650 mg Q6H PRN PO PAIN LEVEL 1-3 OR FEVER Last administered on 08/11/17 00:32; Admin Dose 650 MG; Start 08/08/17 at 22:30 Morphine Sulfate (morphine) 2 mg Q4H PRN IV PAIN LEVEL 7-10; Start 08/08/17 at 22:30 Famotidine (Pepcid) 20 mg Q12 PO Last administered on 08/10/17 21:08; Admin Dose 20 MG; Start 08/09/17 at 09:00 Dexamethasone 4 mg 4 mg Q6 IV Last administered on 08/11/17 05:40; Admin Dose 4 MG; Start 08/09/17 at 00:00 Levetiracetam (Keppra 500 Mg/ 100ml (Pmx)) 100 ml @ 400 mls/hr ONCE IVPB ; Start 08/11/17 at 19:30; Stop 08/11/17 at 23:00 Mannitol 12.5 gm 12.5 gm ONCE IV ; Start 08/11/17 at 19:30; Stop 08/11/17 at 23: 33 Fentanyl 100 ml @ 2.5 mls/hr TITRATE PRN IV sedation; Start 08/11/17 at 21:30 Propofol (Diprivan) 100 ml @ 3.6 mls/hr Q12H IV ; Start 08/11/17 at 21:30 ANTWON DYE M.D. Aug 11, 2017 21:48
[2017-08-11] MEDS ORDERED: MIDAZOLAM (DRIP) 50 mg/50 mL 50 ML IV SCH (22:00)
[2017-08-11] MEDS: FENTAnyl (DRIP) 1000 mcg/100mL 100 ML IV PRN (22:13)
[2017-08-11] MEDS: PROPOFOL 100 ML IV SCH ×2 (22:13→23:06)
[2017-08-11] MEDS: SOD CHLORIDE 0.9% 1,000 ML IV SCH (22:13)
[2017-08-12] VITALS (94 sets, daily range): BP systolic 97–155; BP diastolic 45–84; PULSE 59–93; RESP 0–21
[2017-08-12 00:46] LABS: AADO2 Arterial 136.9 mmHg (7.0-24.0); Arterial COHb 0.2 % (0.0-3.0); Arterial Fraction of Oxyhgb 98.1 % (93.0-99.0); Arterial MetHb 0.3 % (0.0-1.5); Arterial Total Hemglobin 9.8 g/dl (12.0-18.0); MODE VENT - AC
[2017-08-12] MEDS: PROPOFOL 100 ML IV SCH ×6 (01:34→20:59)
[2017-08-12] MEDS: FENTAnyl (DRIP) 1000 mcg/100mL 100 ML IV PRN ×2 (04:36→19:09)
[2017-08-12] MEDS: SOD CHLORIDE 0.9% 1,000 ML IV SCH ×3 (05:18→23:46)
[2017-08-12] MEDS: DEXAMETHASONE 4 MG/ML 1 ML INJ IV SCH ×3 (05:18→18:17)
[2017-08-12 05:19] LABS: BASOPHILS % 0.1 % (0.0-2.0); HEMATOCRIT 28.6 % (37.0-47.0); HEMOGLOBIN 8.7 g/dl (12.0-16.0); LYMPHOCYTES # 2.1 10^3/ul (0.8-2.9); LYMPHOCYTES % 11.5 % (15.0-51.0); MEAN CORPUSCULAR HEMOGLOBIN 21.8 pg (29.0-33.0); MEAN CORPUSCULAR HGB CONC 30.4 g/dl (32.0-37.0); MEAN CORPUSCULAR VOLUME 71.7 fl (82.0-101.0); MEAN PLATELET VOLUME 10.3 fl (7.4-10.4); MONOCYTE # 1.2 10^3/ul (0.3-0.9); MONOCYTES % 6.6 % (0.0-11.0); NEUTROPHIL # 14.6 10^3/ul (1.6-7.5); NEUTROPHILS % 80.8 % (39.0-77.0); PLATELET COUNT 335 10^3/UL (140-415); RED BLOOD COUNT 3.99 10^6/ul (4.20-5.40); RED CELL DISTRIBUTION WIDTH 18.4 % (11.5-14.5); WHITE BLOOD COUNT 18.1 10^3/ul (4.8-10.8)
[2017-08-12 06:39] LABS: CALCIUM 7.6 mg/dl (8.4-10.2); CREATININE 0.85 mg/dl (0.44-1.00); MAGNESIUM 2.1 mg/dl (1.7-2.5); PHOSPHORUS 5.2 mg/dl (2.5-4.9)
--- NOTE | 2017-08-12 08:49 | RADRPT ---
PROCEDURE: XR Chest. CLINICAL INDICATION: Shortness of breath. TECHNIQUE: Single frontal view. COMPARISON: 08/11/2017. FINDINGS: The endotracheal tube and right internal jugular vein catheter has been inserted in satisfactory pos ition. The right chest tube remains in satisfactory position. There is a small right pleural effusio n, slightly larger than seen previously. The heart is enlarged. There is no left pleural effusion. There is no pneumothorax. IMPRESSION: 1. Satisfactory placement of endotracheal tube and right internal jugular vein catheter. 2. Slightly larger right pleural effusion. 3. No other change from 08/11/2017. RPTAT: QQ .Itz Parsons MD, MD Date Time Electronically viewed and signed by .Itz Parsons MD, MD on 08/12/2017 08:48 .R/
[2017-08-12] MEDS: FAMOTIDINE 20 MG TAB PO SCH (09:00)
[2017-08-12] MEDS: FAMOTIDINE 20 MG INJ IV SCH (10:25)
--- NOTE | 2017-08-12 10:30 | PN ---
Date/Time of Note Date/Time of Note DATE: 08/12/17 TIME: 10:26 Assessment/Plan VTE Prophylaxis VTE Prophylaxis Intervention: SCD's Lines/Catheters IV Catheter Type (from Nrs): Central Line Central line still needed: Yes Urinary Cath still in place: No Assessment/Plan Chief Complaint/Hosp Course Patient is a 46-year-old female with a past medical history of HER-2 and estrogen receptor positive metastatic breast cancer to the lung, liver and brain who presents after feeling dizzy during routine outpatient MRI Assessment Dizziness Metastatic breast cancer, metastases to the lung, liver, brain 6 mm [id number] midline herniation and effacement of the right lateral ventricle Large right-sided pleural effusion Status post right-sided mastectomy Headache Shortness of breath, stable Plan -Neurosurgery performed craniectomy with mesh placement on 08/11/17. patient currently still intubated. -pleurex catheter inserted, draining well. drain as needed. -Oncology has also seen the patient, multiple options still available for patient. -Symptomatic care for now -Decadron for cerebral edema -Monitor in ICU -will dispo accordingly depending on how patient is after extubation More than 40 minutes was spent on this encounter Problems: Exam/Review of Systems Vital Signs Vitals Vital Signs Date Time Temp Pulse Resp B/P Pulse Ox O2 Delivery O2 Flow Rate FiO2 08/12/17 08:45 76 14 110/52 97 08/12/17 08:00 97.9 Mechanical Ventilator 08/12/17 08:00 30 08/10/17 18:00 4.0 Intake and Output 08/11/17 08/11/17 08/12/17 15:00 23:00 07:00 Intake Total 2941 ml 1093 ml Output Total 1155 ml 1435 ml Balance 1786 ml -342 ml Exam Physical exam General: Patient is laying in bed intubated, sedated Mentation: Patient intubated, sedated, Head: R side craniectomy with mesh. Neck: Supple, nontender, midline Respiratory: slightly diminished breath sounds on the R. Cardiovascular: regular rate, no obvious murmurs Gastrointestinal: non-tender to palpation, bowel sounds heard. Neurological: unable to assess 2/2 sedation Skin: No new skin lesions, R chest pleurex catheter Results Result Diagram: 08/12/17 0400 08/12/17 0555 Results 24 hrs Laboratory Tests Test 08/12/17 00:16 08/12/17 04:00 08/12/17 05:55 Blood Gas Specimen Source Blood arterial Arterial Blood Date Drawn 08/12/2017 12:33:53 AM Arterial Blood pH (Temp corrected) 7.316 L Arterial Blood pCO2 (Temp correct) 44.0 Arterial Blood pO2 (Temp corrected) 170.1 H Arterial Blood HCO3 22.0 Arterial Blood Base Excess -4.0 L Arterial Blood Oxygen Saturation 98.6 H Wilmar Test N/A Arterial Blood Gas Puncture Site A-Line Arterial Blood Carboxyhemoglobin 0.2 Arterial Blood Methemoglobin 0.3 Blood Gas A-a O2 Differential 136.9 H Oxyhemoglobin Percent 98.1 Total Hemoglobin 9.8 L Blood Gas Temperature 37.0 Blood Gas Respiration Rate 14.0 Blood Gas Actual Respiration Rate 14 Blood Gas Modality VENT - AC FiO2 50.0 Blood Gas Tidal Volume 500.0 Blood Gas Low PEEP Setting 5.0 Blood Gas Notified Whom Yoana GRUBER RCP Blood Gas Notified Time 08/12/2017 12:46:02 AM White Blood Count 18.1 H Red Blood Count 3.99 L Hemoglobin 8.7 L Hematocrit 28.6 L Mean Corpuscular Volume 71.7 L Mean Corpuscular Hemoglobin 21.8 L Mean Corpuscular Hemoglobin Concent 30.4 L Red Cell Distribution Width 18.4 H Platelet Count 335 Mean Platelet Volume 10.3 Neutrophils % 80.8 H Lymphocytes % 11.5 L Monocytes % 6.6 Eosinophils % 0.0 Basophils % 0.1 Nucleated Red Blood Cells % 0.0 Neutrophils # 14.6 H Lymphocytes # 2.1 Monocytes # 1.2 H Eosinophils # 0.0 Basophils # 0.0 Nucleated Red Blood Cells # 0.0 Sodium Level 139 Potassium Level 5.0 Chloride Level 110 Carbon Dioxide Level 22 Anion Gap 12 Blood Urea Nitrogen 28 H Creatinine 0.85 Glucose Level 173 Calcium Level 7.6 L Phosphorus Level 5.2 H Magnesium Level 2.1 Medications Medications Current Medications Ondansetron HCl (Zofran Inj) 4 mg Q6H PRN IV NAUSEA AND/OR VOMITING; Start at 22:30 Acetaminophen (Tylenol Liquid) 650 mg Q6H PRN PO PAIN LEVEL 1-3 OR FEVER Last administered on 08/11/17t 00:32; Admin Dose 650 MG; Start 08/08/17 at 22:30 Morphine Sulfate (morphine) 2 mg Q4H PRN IV PAIN LEVEL 7-10; Start 08/08/17 at 22:30 Famotidine (Pepcid) 20 mg Q12 PO Last administered on 08/10/17 21:08; Admin Dose 20 MG; Start 08/09/17 at 09:00 Dexamethasone 4 mg 4 mg Q6 IV Last administered on 08/12/17 05:18; Admin Dose 4 MG; Start 08/09/17 at 00:00 Fentanyl 100 ml @ 2.5 mls/hr TITRATE PRN IV sedation Last administered on 08/12 04:36; Admin Dose 10 MLS/HR; Start 08/11/17 at 21:30 Propofol 100 ml @ 3.6 mls/hr Q12H IV Last administered on 08/12/17 10:21; Admin Dose 25.2 MLS/HR; Start 08/11/17 at 21:30 Sodium Chloride 1,000 ml @ 125 mls/hr Q8H IV Last administered on 08/12/17 05 :18; Admin Dose 125 MLS/HR; Start 08/11/17 at 22:00 Midazolam HCl (Versed) 50 ml @ 1 mls/hr TITRATE IV ; Start 08/11/17 at 22:00 Famotidine (Pepcid Iv) 20 mg DAILY IV ; Start 08/12/17 at 10:00 JUAN MOTLEY Aug 12, 2017 10:30
--- NOTE | 2017-08-12 13:17 | CONS ---
Date/Time of Note Date/Time of Note DATE: 08/12/17 TIME: 13:10 Consult Date/Type/Reason Admit Date/Time Aug 08, 2017 at 19:54 Initial Consult Date 08/09/17 Type of Consultation: Pulm/CCM Ordering Provider: JUAN MOTLEY s/p craniectomy. On vent. Sedated. Objective Vital Signs Date Time Temp Pulse Resp B/P Pulse Ox O2 Delivery O2 Flow Rate FiO2 08/12/17 11:30 75 13 132/63 98 08/12/17 11:00 Mechanical Ventilator 08/12/17 08:00 97.9 08/12/17 08:00 30 08/10/17 18:00 4.0 Intake and Output 08/11/17 08/11/17 08/12/17 15:00 23:00 07:00 Intake Total 2941 ml 1093 ml Output Total 1155 ml 1435 ml Balance 1786 ml -342 ml Exam NECK: Supple. No JVD. No lymphadenopathy; + ET tube CARDIAC: S1, S2. No added sounds or murmurs. CHEST: Diminished air entry bilaterally. ABDOMEN: Soft, nontender. No guarding or rebound. EXTREMITIES: No cyanosis, clubbing or edema. Results/Medications Result Diagram: 08/12/17 0400 08/12/17 0555 Results 24 hrs Laboratory Tests Test 08/12/17 00:16 08/12/17 04:00 08/12/17 05:55 Blood Gas Specimen Source Blood arterial Arterial Blood Date Drawn 08/12/2017 12:33:53 AM Arterial Blood pH (Temp corrected) 7.316 L Arterial Blood pCO2 (Temp correct) 44.0 Arterial Blood pO2 (Temp corrected) 170.1 H Arterial Blood HCO3 22.0 Arterial Blood Base Excess -4.0 L Arterial Blood Oxygen Saturation 98.6 H Wilmar Test N/A Arterial Blood Gas Puncture Site A-Line Arterial Blood Carboxyhemoglobin 0.2 Arterial Blood Methemoglobin 0.3 Blood Gas A-a O2 Differential 136.9 H Oxyhemoglobin Percent 98.1 Total Hemoglobin 9.8 L Blood Gas Temperature 37.0 Blood Gas Respiration Rate 14.0 Blood Gas Actual Respiration Rate 14 Blood Gas Modality VENT - AC FiO2 50.0 Blood Gas Tidal Volume 500.0 Blood Gas Low PEEP Setting 5.0 Blood Gas Notified Whom Yoana GRUBER RCP Blood Gas Notified Time 08/12/2017 12:46:02 AM White Blood Count 18.1 H Red Blood Count 3.99 L Hemoglobin 8.7 L Hematocrit 28.6 L Mean Corpuscular Volume 71.7 L Mean Corpuscular Hemoglobin 21.8 L Mean Corpuscular Hemoglobin Concent 30.4 L Red Cell Distribution Width 18.4 H Platelet Count 335 Mean Platelet Volume 10.3 Neutrophils % 80.8 H Lymphocytes % 11.5 L Monocytes % 6.6 Eosinophils % 0.0 Basophils % 0.1 Nucleated Red Blood Cells % 0.0 Neutrophils # 14.6 H Lymphocytes # 2.1 Monocytes # 1.2 H Eosinophils # 0.0 Basophils # 0.0 Nucleated Red Blood Cells # 0.0 Sodium Level 139 Potassium Level 5.0 Chloride Level 110 Carbon Dioxide Level 22 Anion Gap 12 Blood Urea Nitrogen 28 H Creatinine 0.85 Glucose Level 173 Calcium Level 7.6 L Phosphorus Level 5.2 H Magnesium Level 2.1 Medications Current Medications Ondansetron HCl (Zofran Inj) 4 mg Q6H PRN IV NAUSEA AND/OR VOMITING; Start at 22:30 Acetaminophen (Tylenol Liquid) 650 mg Q6H PRN PO PAIN LEVEL 1-3 OR FEVER Last administered on 08/11/17 00:32; Admin Dose 650 MG; Start 08/08/17 at 22:30 Morphine Sulfate (morphine) 2 mg Q4H PRN IV PAIN LEVEL 7-10; Start 08/08/17 at 22:30 Dexamethasone 4 mg 4 mg Q6 IV Last administered on 08/12/17 12:41; Admin Dose 4 MG; Start 08/09/17 at 00:00 Fentanyl 100 ml @ 2.5 mls/hr TITRATE PRN IV sedation Last administered on 08/12 04:36; Admin Dose 10 MLS/HR; Start 08/11/17 at 21:30 Propofol 100 ml @ 3.6 mls/hr Q12H IV Last administered on 08/12/17 10:21; Admin Dose 25.2 MLS/HR; Start 08/11/17 at 21:30 Sodium Chloride 1,000 ml @ 125 mls/hr Q8H IV Last administered on 08/12/17 05 :18; Admin Dose 125 MLS/HR; Start 08/11/17 at 22:00 Midazolam HCl (Versed) 50 ml @ 1 mls/hr TITRATE IV ; Start 08/11/17 at 22:00 Famotidine (Pepcid Iv) 20 mg DAILY IV Last administered on 08/12/17t 10:25; Admin Dose 20 MG; Start 08/12/17 at 10:00 Assessment/Plan Additional Assessment/Plan IMP: 1. Vent Dependence s/p craniectomy 2. Recurrent right pleural effusion, likely secondary to underlying metastatic breast cancer. Right lung opacification secondary to pleural effusion , status post Pleurx catheter placement. Continue drainage daily. 3. 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 Continue Pleurx catheter drainage daily. 2. Continue steroids for cerebral edema. 3. Wean to CPAP/PS--> wean as tolerated. Critical care time 40 minutes ARELY KAYE MD Aug 12, 2017 13:17
--- NOTE | 2017-08-12 16:15 | RADRPT ---
PROCEDURE: MRI Brain with and without contrast. CLINICAL INDICATION: 46-year-old female with history of metastatic disease, postop evaluation. TECHNIQUE: An MRI of the brain was performed with and without contrast utilizing the following seq uences: Sagittal T1 weighted, sagittal FLAIR, axial T1, axial FLAIR, axial T2 weighted, axial diffu raza weighted (EPI technique q=0773), axial ADC mapping, and post contrast axial and coronal T1 weig hted, and axial FLAIR. 10 cc of Magnevist was given intravenously without complication. The images were reviewed on a high-resolution PACS workstation. COMPARISON: No prior studies are available for comparison. FINDINGS: Diffusion weighted sequences demonstrate no evidence of acute lacunar or lobar infarction. There hill s been interval right frontal - parietal - temporal craniectomy, with cranioplasty. There is a mild amount of residual vasogenic edema in the underlying right frontal and parietal lobes. Of. The there is redemonstration of small enhancing hemorrhagic metastases involving the paramedian left occipita l lobe, measuring 11 x 13 mm and 7 x 5 mm respectively. There is stable mild amount of vasogenic kirk ma in the adjacent white matter. There is stable appearance of 2.0 x 1.1 cm enhancing extra-axial ma ss lesion involving the right sphenoid temporal buttress. There is a subtle area of enhancement invo lving the left superior cerebellar hemisphere measuring 4 mm (axial series image 68). The known left temporal lobe enhancing mass lesion is not as well seen on the examination. There is no intracrania l hemorrhage, extra-axial fluid collection, mass lesion, midline shift or hydrocephalous. There is mild prominence of the cerebral sulci, lateral and third ventricles. There are mild to moderate laurie ventricular and subcortical white matter lesions, likely related to chronic microangiopathic changes . Normal flow voids are visible the proximal intracranial arteries and dural sinuses, indicating pa tency. The midline structures are intact. The paranasal sinuses, mastoid air cells and middle ear cavities are normally aerated. The orbits, calvarium and extracranial soft tissues are normal in appearance. IMPRESSION: 1. Interval right frontal - parietal - temporal craniectomy with removal of the large extra-axial m etastatic lesion. 2. There is stable appearance of small hemorrhagic metastases involving the paramedian left occipit al lobe measuring 13 x 11 mm and 7 x 5 mm respectively. 3. Stable 4 mm enhancement involving the left superior cerebellar hemisphere, suggestive of small m etastasis. RPTAT: HGAS .Gerard Cisneros MD, Date Time Electronically viewed and signed by .Gerard Cisneros MD, on 08/12/2017 16:14 .S/
[2017-08-13] VITALS (59 sets, daily range): BP systolic 96–161; BP diastolic 44–91; PULSE 52–99; RESP 12–25
[2017-08-13] MEDS: DEXAMETHASONE 4 MG/ML 1 ML INJ IV SCH ×4 (00:28→18:05)
[2017-08-13] MEDS: PROPOFOL 100 ML IV SCH ×2 (01:56→05:35)
[2017-08-13] MEDS: SOD CHLORIDE 0.9% 1,000 ML IV SCH ×2 (06:00→09:01)
[2017-08-13 06:10] LABS: ABNORMAL IP MESSAGE 1; BASOPHILS % 0.1 % (0.0-2.0); HEMATOCRIT 23.7 % (37.0-47.0); LYMPHOCYTES # 1.6 10^3/ul (0.8-2.9); LYMPHOCYTES % 14.5 % (15.0-51.0); MEAN CORPUSCULAR HGB CONC 29.1 g/dl (32.0-37.0); MEAN PLATELET VOLUME 9.5 fl (7.4-10.4); MONOCYTES % 8.5 % (0.0-11.0); NEUTROPHIL # 8.5 10^3/ul (1.6-7.5); NEUTROPHILS % 75.3 % (39.0-77.0); PLATELET COUNT 198 10^3/UL (140-415); RED BLOOD COUNT 3.29 10^6/ul (4.20-5.40); RED CELL DISTRIBUTION WIDTH 18.3 % (11.5-14.5); WHITE BLOOD COUNT 11.2 10^3/ul (4.8-10.8)
[2017-08-13 06:34] LABS: POSITIVE DIFF @See below
[2017-08-13 06:36] LABS: HEMOGLOBIN 6.9 g/dl (12.0-16.0)
[2017-08-13 06:41] LABS: CALCIUM 7.6 mg/dl (8.4-10.2); CREATININE 0.64 mg/dl (0.44-1.00); PHOSPHORUS 3.5 mg/dl (2.5-4.9); POTASSIUM 4.2 mmol/L (3.5-5.1)
[2017-08-13] MEDS: FENTAnyl (DRIP) 1000 mcg/100mL 100 ML IV PRN (07:03)
[2017-08-13 07:15] LABS: MAGNESIUM 2.3 mg/dl (1.7-2.5)
[2017-08-13 08:17] LABS: HEMATOCRIT 23.4 % (37.0-47.0); HEMOGLOBIN 7.3 g/dl (12.0-16.0); LYMPHOCYTES # 1.8 10^3/ul (0.8-2.9); LYMPHOCYTES % 14.8 % (15.0-51.0); MEAN CORPUSCULAR HEMOGLOBIN 22.1 pg (29.0-33.0); MEAN CORPUSCULAR HGB CONC 31.2 g/dl (32.0-37.0); MEAN CORPUSCULAR VOLUME 70.9 fl (82.0-101.0); MEAN PLATELET VOLUME 8.8 fl (7.4-10.4); MONOCYTES % 8.1 % (0.0-11.0); NEUTROPHIL # 9.2 10^3/ul (1.6-7.5); PLATELET COUNT 196 10^3/UL (140-415); WHITE BLOOD COUNT 12.3 10^3/ul (4.8-10.8)
[2017-08-13 09:40] LABS: AADO2 Arterial 70.5 mmHg (7.0-24.0); Arterial COHb 0.3 % (0.0-3.0); Arterial Fraction of Oxyhgb 96.5 % (93.0-99.0); Arterial HCO3 21.1 mmol/L (22.0-26.0); Arterial MetHb 0.5 % (0.0-1.5); Blood Gas PS 8; MODE VENT - CPAP
[2017-08-13] MEDS: FAMOTIDINE 20 MG INJ IV SCH (09:54)
--- NOTE | 2017-08-13 12:17 | PN ---
Date/Time of Note Date/Time of Note DATE: 08/13/17 TIME: 12:14 Assessment/Plan VTE Prophylaxis VTE Prophylaxis Intervention: SCD's Lines/Catheters IV Catheter Type (from Nrs): A Line Urinary Cath still in place: Yes Reason Cath still needed: terminal illness/intractable pain Assessment/Plan Chief Complaint/Hosp Course Patient is a 46-year-old female with a past medical history of HER-2 and estrogen receptor positive metastatic breast cancer to the lung, liver and brain who presents after feeling dizzy during routine outpatient MRI Assessment Dizziness Metastatic breast cancer, metastases to the lung, liver, brain 6 mm [id number] midline herniation and effacement of the right lateral ventricle Large right-sided pleural effusion Status post right-sided mastectomy Headache Shortness of breath, stable Plan -Neurosurgery performed craniectomy with mesh placement on 08/11/17. patient extubated today. Doing well. However MRI states multiple other areas of mets. prognosis is poor. -hgb low, neurosurgery defers transfusion to primary, will transfuse as needed. -pleurex catheter inserted, draining well. drain as needed. -Oncology has also seen the patient, multiple options still available for patient. -Symptomatic care for now -Decadron for cerebral edema -Monitor in ICU -will dispo accordingly depending on how patient does with PT/OT -case management consult for palliative care. More than 40 minutes was spent on this encounter Problems: Subjective 24 Hr Interval Summary Free Text/Dictation Patient is doing well, recently extubated Exam/Review of Systems Vital Signs Vitals Vital Signs Date Time Temp Pulse Resp B/P Pulse Ox O2 Delivery O2 Flow Rate FiO2 08/13/17 10:05 100 4.0 08/13/17 09:25 65 15 30 08/13/17 09:00 141/70 CPAP Mechanical Ventilator 08/13/17 08:00 98.1 Intake and Output 08/12/17 08/12/17 08/13/17 15:00 23:00 07:00 Intake Total 1242.2 ml 1253.02 ml 1077.98 ml Output Total 1815 ml 600 ml 585 ml Balance -572.8 ml 653.02 ml 492.98 ml Exam Physical exam General: Patient is laying in bed recently extubted Mentation: sleepy, but is alert and follows command. Head: R side craniectomy with mesh. drain. Neck: Supple, nontender, midline Respiratory: slightly diminished breath sounds on the R. Cardiovascular: regular rate, no obvious murmurs Gastrointestinal: non-tender to palpation, bowel sounds heard. Neurological: unable to assess 2/2 recent extubation and sedation Skin: No new skin lesions, R chest pleurex catheter Results Result Diagram: 08/13/17 0810 08/13/17 0500 Results 24 hrs Laboratory Tests Test 08/13/17 05:00 08/13/17 08:10 08/13/17 09:00 White Blood Count 11.2 #H 12.3 H Red Blood Count 3.29 L 3.30 L Hemoglobin 6.9 #*L 7.3 L Hematocrit 23.7 L 23.4 L Mean Corpuscular Volume 72.0 L 70.9 L Mean Corpuscular Hemoglobin 21.0 L 22.1 L Mean Corpuscular Hemoglobin Concent 29.1 L 31.2 L Red Cell Distribution Width 18.3 H 18.0 H Platelet Count 198 # 196 Mean Platelet Volume 9.5 8.8 Neutrophils % 75.3 75.0 Lymphocytes % 14.5 L 14.8 L Monocytes % 8.5 8.1 Eosinophils % 0.0 0.0 Basophils % 0.1 0.0 Nucleated Red Blood Cells % 0.0 0.0 Neutrophils # 8.5 H 9.2 H Lymphocytes # 1.6 1.8 Monocytes # 1.0 H 1.0 H Eosinophils # 0.0 0.0 Basophils # 0.0 0.0 Nucleated Red Blood Cells # 0.0 0.0 Sodium Level 140 Potassium Level 4.2 Chloride Level 112 H Carbon Dioxide Level 24 Anion Gap 8 Blood Urea Nitrogen 28 H Creatinine 0.64 Glucose Level 138 Calcium Level 7.6 L Phosphorus Level 3.5 Magnesium Level 2.3 Blood Gas Specimen Source Blood arterial Arterial Blood Date Drawn 08/13/2017 9:25:02 AM Arterial Blood pH (Temp corrected) 7.418 Arterial Blood pCO2 (Temp correct) 33.4 L Arterial Blood pO2 (Temp corrected) 104.2 H Arterial Blood HCO3 21.1 L Arterial Blood Base Excess -3.0 Arterial Blood Oxygen Saturation 97.3 Wilmar Test N/A Arterial Blood Gas Puncture Site A-Line Arterial Blood Carboxyhemoglobin 0.3 Arterial Blood Methemoglobin 0.5 Blood Gas A-a O2 Differential 70.5 H Oxyhemoglobin Percent 96.5 Total Hemoglobin 8.0 L Blood Gas Temperature 37.0 Blood Gas Actual Respiration Rate 15 Blood Gas Modality VENT - CPAP FiO2 30.0 Blood Gas Tidal Volume 626.0 Blood Gas Low PEEP Setting 5.0 Blood Gas Pressure Support 8 Blood Gas Notified Whom CW Blood Gas Notified Time 08/13/2017 9:39:51 AM Medications Medications Current Medications Ondansetron HCl (Zofran Inj) 4 mg Q6H PRN IV NAUSEA AND/OR VOMITING; Start at 22:30 Acetaminophen (Tylenol Liquid) 650 mg Q6H PRN PO PAIN LEVEL 1-3 OR FEVER Last administered on 08/11/17 00:32; Admin Dose 650 MG; Start 08/08/17 at 22:30 Morphine Sulfate (morphine) 2 mg Q4H PRN IV PAIN LEVEL 7-10; Start 08/08/17 at 22:30 Dexamethasone 4 mg 4 mg Q6 IV Last administered on 08/13/17 05:53; Admin Dose 4 MG; Start 08/09/17 at 00:00 Fentanyl 100 ml @ 2.5 mls/hr TITRATE PRN IV sedation Last administered on 08/13 07:03; Admin Dose 5 MLS/HR; Start 08/11/17 at 21:30 Propofol 100 ml @ 3.6 mls/hr Q12H IV Last administered on 08/13/17 05:35; Admin Dose 18 MLS/HR; Start 08/11/17 at 21:30 Sodium Chloride 1,000 ml @ 125 mls/hr Q8H IV Last administered on 08/13/17 09 :01; Admin Dose 125 MLS/HR; Start 08/11/17 at 22:00 Midazolam HCl (Versed) 50 ml @ 1 mls/hr TITRATE IV ; Start 08/11/17 at 22:00 Famotidine (Pepcid Iv) 20 mg DAILY IV Last administered on 08/13/17 09:54; Admin Dose 20 MG; Start 08/12/17 at 10:00 JUAN MOTLEY Aug 13, 2017 12:17
--- NOTE | 2017-08-13 13:32 | CONS ---
Date/Time of Note Date/Time of Note DATE: 08/13/17 TIME: 13:30 Consult Date/Type/Reason Admit Date/Time Aug 08, 2017 at 19:54 Initial Consult Date 08/09/17 Type of Consultation: Pulm/CCM Ordering Provider: JUAN MOTLEY Subjective No events. On CPAP/PS Objective Vital Signs Date Time Temp Pulse Resp B/P Pulse Ox O2 Delivery O2 Flow Rate FiO2 08/13/17 12:00 98.3 59 14 121/73 100 Nasal Cannula 4.0 08/13/17 09:25 30 Intake and Output 08/12/17 08/12/17 08/13/17 14:59 22:59 06:59 Intake Total 1136.6 ml 1251.96 ml 1230.64 ml Output Total 1765 ml 665 ml 570 ml Balance -628.4 ml 586.96 ml 660.64 ml Exam HEENT: Neck supple; no JVD; no LAD, + ET tube CVS: RRR, S1 and S2 CHEST: Decreased BS right base ABD: Soft, NT, + BS EXT: No c/c/e Results/Medications Result Diagram: 08/13/17 0810 08/13/17 0500 Results 24 hrs Laboratory Tests Test 08/13/17 05:00 08/13/17 08:10 08/13/17 09:00 White Blood Count 11.2 #H 12.3 H Red Blood Count 3.29 L 3.30 L Hemoglobin 6.9 #*L 7.3 L Hematocrit 23.7 L 23.4 L Mean Corpuscular Volume 72.0 L 70.9 L Mean Corpuscular Hemoglobin 21.0 L 22.1 L Mean Corpuscular Hemoglobin Concent 29.1 L 31.2 L Red Cell Distribution Width 18.3 H 18.0 H Platelet Count 198 # 196 Mean Platelet Volume 9.5 8.8 Neutrophils % 75.3 75.0 Lymphocytes % 14.5 L 14.8 L Monocytes % 8.5 8.1 Eosinophils % 0.0 0.0 Basophils % 0.1 0.0 Nucleated Red Blood Cells % 0.0 0.0 Neutrophils # 8.5 H 9.2 H Lymphocytes # 1.6 1.8 Monocytes # 1.0 H 1.0 H Eosinophils # 0.0 0.0 Basophils # 0.0 0.0 Nucleated Red Blood Cells # 0.0 0.0 Sodium Level 140 Potassium Level 4.2 Chloride Level 112 H Carbon Dioxide Level 24 Anion Gap 8 Blood Urea Nitrogen 28 H Creatinine 0.64 Glucose Level 138 Calcium Level 7.6 L Phosphorus Level 3.5 Magnesium Level 2.3 Blood Gas Specimen Source Blood arterial Arterial Blood Date Drawn 08/13/2017 9:25:02 AM Arterial Blood pH (Temp corrected) 7.418 Arterial Blood pCO2 (Temp correct) 33.4 L Arterial Blood pO2 (Temp corrected) 104.2 H Arterial Blood HCO3 21.1 L Arterial Blood Base Excess -3.0 Arterial Blood Oxygen Saturation 97.3 Wilmar Test N/A Arterial Blood Gas Puncture Site A-Line Arterial Blood Carboxyhemoglobin 0.3 Arterial Blood Methemoglobin 0.5 Blood Gas A-a O2 Differential 70.5 H Oxyhemoglobin Percent 96.5 Total Hemoglobin 8.0 L Blood Gas Temperature 37.0 Blood Gas Actual Respiration Rate 15 Blood Gas Modality VENT - CPAP FiO2 30.0 Blood Gas Tidal Volume 626.0 Blood Gas Low PEEP Setting 5.0 Blood Gas Pressure Support 8 Blood Gas Notified Whom CW Blood Gas Notified Time 08/13/2017 9:39:51 AM Medications Current Medications Ondansetron HCl (Zofran Inj) 4 mg Q6H PRN IV NAUSEA AND/OR VOMITING; Start at 22:30 Acetaminophen (Tylenol Liquid) 650 mg Q6H PRN PO PAIN LEVEL 1-3 OR FEVER Last administered on 08/11/17 00:32; Admin Dose 650 MG; Start 08/08/17 at 22:30 Morphine Sulfate (morphine) 2 mg Q4H PRN IV PAIN LEVEL 7-10; Start 08/08/17 at 22:30 Dexamethasone 4 mg 4 mg Q6 IV Last administered on 08/13/17 12:42; Admin Dose 4 MG; Start 08/09/17 at 00:00 Fentanyl 100 ml @ 2.5 mls/hr TITRATE PRN IV sedation Last administered on 08/13 07:03; Admin Dose 5 MLS/HR; Start 08/11/17 at 21:30 Propofol 100 ml @ 3.6 mls/hr Q12H IV Last administered on 08/13/17 05:35; Admin Dose 18 MLS/HR; Start 08/11/17 at 21:30 Sodium Chloride 1,000 ml @ 125 mls/hr Q8H IV Last administered on 08/13/17 09 :01; Admin Dose 125 MLS/HR; Start 08/11/17 at 22:00 Midazolam HCl (Versed) 50 ml @ 1 mls/hr TITRATE IV ; Start 08/11/17 at 22:00 Famotidine (Pepcid Iv) 20 mg DAILY IV Last administered on 08/13/17 09:54; Admin Dose 20 MG; Start 08/12/17 at 10:00 Assessment/Plan Additional Assessment/Plan IMP: 1. Vent Dependence s/p craniectomy 2. Recurrent right pleural effusion, likely secondary to underlying metastatic breast cancer. Right lung opacification secondary to pleural effusion , status post Pleurx catheter placement. Continue drainage daily. 3. New central nervous system (CLIENT BUSINESS MANAGER) lesions with cerebral edema/hemorrhage--s/ p craniectomy RECS: 1. Continue Pleurx catheter drainage daily 2. Continue steroids for cerebral edema 3. Extubate 4. Advance diet Critical care time 40 minutes ARELY KAYE MD Aug 13, 2017 13:32
--- NOTE | 2017-08-13 14:39 | QN ---
Documentation Comment The patient is doing well s/p extubation. She follows commands x4 briskly. Speech is fluent and appropriate. MRI looks good with no evidence of residual tumor. A/P: dc drain. dc Francois. OK from pov to transfer to floor. JOEY GRANT MD Aug 13, 2017 14:39
[2017-08-14] VITALS (17 sets, daily range): BP systolic 114–165; BP diastolic 68–85; PULSE 48–68; RESP 16–18
[2017-08-14 05:51] LABS: BASOPHILS % 0.1 % (0.0-2.0); HEMATOCRIT 25.2 % (37.0-47.0); HEMOGLOBIN 7.5 g/dl (12.0-16.0); LYMPHOCYTES # 2.2 10^3/ul (0.8-2.9); LYMPHOCYTES % 16.4 % (15.0-51.0); MEAN CORPUSCULAR HEMOGLOBIN 21.1 pg (29.0-33.0); MEAN CORPUSCULAR HGB CONC 29.8 g/dl (32.0-37.0); MEAN CORPUSCULAR VOLUME 70.8 fl (82.0-101.0); MEAN PLATELET VOLUME 9.9 fl (7.4-10.4); MONOCYTE # 0.9 10^3/ul (0.3-0.9); MONOCYTES % 6.5 % (0.0-11.0); NEUTROPHIL # 10.1 10^3/ul (1.6-7.5); NEUTROPHILS % 74.5 % (39.0-77.0); PLATELET COUNT 219 10^3/UL (140-415); RED BLOOD COUNT 3.56 10^6/ul (4.20-5.40); RED CELL DISTRIBUTION WIDTH 17.7 % (11.5-14.5); WHITE BLOOD COUNT 13.5 10^3/ul (4.8-10.8)
[2017-08-14] MEDS: DEXAMETHASONE 4 MG/ML 1 ML INJ IV SCH ×5 (05:56→23:35)
[2017-08-14 06:38] LABS: CALCIUM 8.1 mg/dl (8.4-10.2); CREATININE 0.55 mg/dl (0.44-1.00); PHOSPHORUS 3.4 mg/dl (2.5-4.9); POTASSIUM 4.1 mmol/L (3.5-5.1)
[2017-08-14] MEDS: FAMOTIDINE 20 MG INJ IV SCH (09:05)
--- NOTE | 2017-08-14 11:24 | PN ---
Date/Time of Note Date/Time of Note DATE: 08/14/17 TIME: 10:39 Assessment/Plan VTE Prophylaxis VTE Prophylaxis Intervention: SCD's Lines/Catheters IV C[facility]ter Type (from [facility]): Central Line Central line still needed: Yes Urinary Cath still in place: No Assessment/Plan Assessment/Plan 1. Breast cancer with metastases to the lung, liver, brain - s/p craniectomy with mesh placement on 08/11/17 - Neurosurgery on board and recommendations appreciated - Oncology on board and consultation appreciated. She has been responsive to therapy in the past and still has many more treatment options which she could benefit from. Given her Brain mets, Dr. Mendoza would consider a combination of Xeloda and Lapatinib which can penetrate the blood brain barrier. Once she stabilizes can restart Tamoxifen as well -once cleared from a neurosurgical standpoint will start chemotherapy 2. 6 mm [id number] midline herniation and effacement of the right lateral ventricle - mental status remains stable - s/p craniectomy - Decadron for cerebral edema 3. Large right-sided pleural effusion - Pleurex cath in place, draining well 4. Anemia of chronic disease - s/p 1 unit PRBC today. will continue monitoring and transfuse as needed 5. Shortness of breath - remains stable s/p extubation Subjective 24 Hr Interval Summary Free Text/Dictation Patient resting comfortably with no new complaints. c/o slight headache but denies any nausea, vomiting, chest pain, SOB, or abdominal issues. She tolerated diet this am. Exam/Review of Systems Vital Signs Vitals Vital Signs Date Time Temp Pulse Resp B/P Pulse Ox O2 Delivery O2 Flow Rate FiO2 08/14/17 08:30 99.4 55 16 136/74 97 08/14/17 06:00 Room Air 08/13/17 15:00 2.0 08/13/17 09:25 30 Intake and Output 08/13/17 08/13/17 08/14/17 15:00 23:00 07:00 Intake Total 1506.6 ml 1365 ml Output Total 1325 ml 760 ml 550 ml Balance 181.6 ml 605 ml -550 ml Exam General: NAD, responding appropriately. Mentation: sleepy, but is alert and follows command. Head: R side craniectomy with mesh. chucho in place- no discharge or drainage Neck: Supple, nontender, midline Respiratory: diminished diffusely. no wheezes or rhonchi appreciated Cardiovascular: regular rate, no obvious murmurs Gastrointestinal: non-tender to palpation, bowel sounds heard. Skin: No new skin lesions, R chest pleurex catheter Results Result Diagram: 08/14/1742908/14/17 043 Results 24 hrs Laboratory Tests Test 08/14/17 04:30 White Blood Count 13.5 H Red Blood Count 3.56 L Hemoglobin 7.5 L Hematocrit 25.2 L Mean Corpuscular Volume 70.8 L Mean Corpuscular Hemoglobin 21.1 L Mean Corpuscular Hemoglobin Concent 29.8 L Red Cell Distribution Width 17.7 H Platelet Count 219 Mean Platelet Volume 9.9 Neutrophils % 74.5 Lymphocytes % 16.4 Monocytes % 6.5 Eosinophils % 0.0 Basophils % 0.1 Nucleated Red Blood Cells % 0.0 Neutrophils # 10.1 H Lymphocytes # 2.2 Monocytes # 0.9 Eosinophils # 0.0 Basophils # 0.0 Nucleated Red Blood Cells # 0.0 Sodium Level 133 L Potassium Level 4.1 Chloride Level 104 Carbon Dioxide Level 28 Anion Gap 5 L Blood Urea Nitrogen 25 H Creatinine 0.55 Glucose Level 127 Calcium Level 8.1 L Phosphorus Level 3.4 Magnesium Level 2.0 Medications Medications Current Medications Ondansetron HCl (Zofran Inj) 4 mg Q6H PRN IV NAUSEA AND/OR VOMITING Last administered on 08/14/17 01:27; Admin Dose 4 MG; Start 08/08/17 at 22:30 Acetaminophen (Tylenol Liquid) 650 mg Q6H PRN PO PAIN LEVEL 1-3 OR FEVER Last administered on 08/11/17 00:32; Admin Dose 650 MG; Start 08/08/17 at 22:30 Morphine Sulfate (morphine) 2 mg Q4H PRN IV PAIN LEVEL 7-10; Start 08/08/17 at 22:30 Dexamethasone (Decadron) 4 mg Q6 IV Last administered on 08/14/17 05:56; Admin Dose 4 MG; Start 08/09/17 at 00:00 Famotidine (Pepcid Iv) 20 mg DAILY IV Last administered on 08/14/17 09:05; Admin Dose 20 MG; Start 08/12/17 at 10:00 ZEUS TABOR MD Aug 14, 2017 10:40
--- NOTE | 2017-08-14 11:32 | CONS ---
Date/Time of Note Date/Time of Note DATE: 08/14/17 TIME: 11:29 Assessment/Plan Assessment/Plan Chief Complaint/Hosp Course 46 yo with metastatic breast cancer, who was off therapy for at least 5 month, who presents with recurrent pleural effusion and large brain metastasis. #Her2+/ER+/IA+ metastatic breast ca -pt is non compliant but when she receives therapy, she is quite responsive to therapy -therefore at this time, although she has terminal disease, there are still many more treatment options which she could benefit from -given her Brain mets, I would consider a combination of Xeloda and Lapatinib which can penetrate the blood brain barrier -once she stabilizes can restart Tamoxifen as well -once cleared from a neurosurgical standpoint will start chemotherapy #Brain Mets -appreciate neurosurgery recs - now s/p right frontal craniectomy, resection of tumor, microscope, image guidance, titanium mesh cranioplast -will refer the patient to rad onc once she stabilizes for post op radiation -continue Decadron at4mg IV q 6 #Pleural Effusion -s/p pleurex catheter placement -will check cytology and re-evaluate her prognostic markers A total 40 min was spent face to face in speaking with the patient of which > 50 % was spent in counseling and coordination fo care and details question and answer session Problems: Consultation Date/Type/Reason Admit Date/Time Aug 08, 2017 at 19:54 Initial Consult Date 08/09/17 Type of Consultation: oncology Reason for Consultation metastatic breast cancer to brain Referring Provider: JUAN MOTLEY 24 HR Interval Summary Free Text/Dictation pt is s/p extubation. transferred to floor. on Decadron 4 mg IV q 6 Exam/Review of Systems Vital Signs Vitals Vital Signs Date Time Temp Pulse Resp B/P Pulse Ox O2 Delivery O2 Flow Rate FiO2 08/14/17 08:30 99.4 55 16 136/74 97 08/14/17 06:00 Room Air 08/13/17 15:00 2.0 08/13/17 09:25 30 Intake and Output 08/13/17 08/13/17 08/14/17 15:00 23:00 07:00 Intake Total 1506.6 ml 1365 ml Output Total 1325 ml 760 ml 550 ml Balance 181.6 ml 605 ml -550 ml Exam Constitutional: alert, oriented Psych: no complaints Head: normocephalic Eyes: nl conjunctiva ENMT: nl external ears & nose Neck: non-tender, supple Respiratory: clear to auscultation, normal air movement Cardiovascular: regular rate and rhythm Gastrointestinal: soft Musculoskeletal: nl extremities to inspection Results Result Diagram: 08/14/1742908/14/17 0430 Results 24 hrs Laboratory Tests Test 08/14/17 04:30 White Blood Count 13.5 H Red Blood Count 3.56 L Hemoglobin 7.5 L Hematocrit 25.2 L Mean Corpuscular Volume 70.8 L Mean Corpuscular Hemoglobin 21.1 L Mean Corpuscular Hemoglobin Concent 29.8 L Red Cell Distribution Width 17.7 H Platelet Count 219 Mean Platelet Volume 9.9 Neutrophils % 74.5 Lymphocytes % 16.4 Monocytes % 6.5 Eosinophils % 0.0 Basophils % 0.1 Nucleated Red Blood Cells % 0.0 Neutrophils # 10.1 H Lymphocytes # 2.2 Monocytes # 0.9 Eosinophils # 0.0 Basophils # 0.0 Nucleated Red Blood Cells # 0.0 Sodium Level 133 L Potassium Level 4.1 Chloride Level 104 Carbon Dioxide Level 28 Anion Gap 5 L Blood Urea Nitrogen 25 H Creatinine 0.55 Glucose Level 127 Calcium Level 8.1 L Phosphorus Level 3.4 Magnesium Level 2.0 Medications Medications Current Medications Ondansetron HCl (Zofran Inj) 4 mg Q6H PRN IV NAUSEA AND/OR VOMITING Last administered on 08/14/17 01:27; Admin Dose 4 MG; Start 08/08/17 at 22:30 Acetaminophen (Tylenol Liquid) 650 mg Q6H PRN PO PAIN LEVEL 1-3 OR FEVER Last administered on 08/11/17 00:32; Admin Dose 650 MG; Start 08/08/17 at 22:30 Morphine Sulfate (morphine) 2 mg Q4H PRN IV PAIN LEVEL 7-10; Start 08/08/17 at 22:30 Dexamethasone (Decadron) 4 mg Q6 IV Last administered on 08/14/17 05:56; Admin Dose 4 MG; Start 08/09/17 at 00:00 Famotidine (Pepcid Iv) 20 mg DAILY IV Last administered on 08/14/17 09:05; Admin Dose 20 MG; Start 08/12/17 at 10:00 ANTWON DYE M.D. Aug 14, 2017 11:32
[2017-08-15 00:22] VITALS: BP 125/73; RESP 18
[2017-08-15 02:06] VITALS: BP 118/59; RESP 18
[2017-08-15 05:13] LABS: BASOPHILS % 0.2 % (0.0-2.0); HEMATOCRIT 31.8 % (37.0-47.0); HEMOGLOBIN 9.9 g/dl (12.0-16.0); LYMPHOCYTES # 3.7 10^3/ul (0.8-2.9); LYMPHOCYTES % 17.1 % (15.0-51.0); MEAN CORPUSCULAR HEMOGLOBIN 22.1 pg (29.0-33.0); MEAN CORPUSCULAR HGB CONC 31.1 g/dl (32.0-37.0); MEAN CORPUSCULAR VOLUME 71.1 fl (82.0-101.0); MONOCYTE # 1.4 10^3/ul (0.3-0.9); MONOCYTES % 6.3 % (0.0-11.0); NEUTROPHIL # 15.6 10^3/ul (1.6-7.5); NEUTROPHILS % 72.4 % (39.0-77.0); NUCLEATED RED BLOOD CELLS% 0.1 /100WBC (0.0-0.0); PLATELET COUNT 292 10^3/UL (140-415); RED BLOOD COUNT 4.47 10^6/ul (4.20-5.40); RED CELL DISTRIBUTION WIDTH 18.6 % (11.5-14.5); WHITE BLOOD COUNT 21.5 10^3/ul (4.8-10.8)
[2017-08-15 05:32] LABS: CALCIUM 8.4 mg/dl (8.4-10.2); CREATININE 0.62 mg/dl (0.44-1.00); MAGNESIUM 1.9 mg/dl (1.7-2.5); PHOSPHORUS 3.6 mg/dl (2.5-4.9); POTASSIUM 4.2 mmol/L (3.5-5.1)
[2017-08-15] MEDS: DEXAMETHASONE 4 MG/ML 1 ML INJ IV SCH ×3 (05:54→17:39)
[2017-08-15 06:00] VITALS: BP 120/70; PULSE 54; RESP 18
[2017-08-15 07:00] VITALS: BP 127/68; RESP 18
--- NOTE | 2017-08-15 07:58 | RADRPT ---
PROCEDURE: XR Chest. CLINICAL INDICATION: Elevated white blood cell count TECHNIQUE: A single AP view of the chest was obtained. COMPARISON: Chest x-ray dated 08/12/2017 FINDINGS: The endotracheal tube has been removed. There is a right internal jugular central venous catheter wi th tip near the cavoatrial junction. There is a small right pleural effusion with right basilar consolidation. The cardiomediastinal silh ouette is within normal limits for size. The osseous structures are unremarkable. IMPRESSION: 1. Small right pleural effusion with right basilar atelectasis versus pneumonia, improved when comp ared to the prior examination. 2. Tubes and lines, as described above. RPTAT: HH .Shirley Chrsitie MD, MD Date Time Electronically viewed and signed by .Shirley Christie MD, on 08/15/2017 07:58 .G/
[2017-08-15] MEDS: FAMOTIDINE 20 MG INJ IV SCH (08:25)
--- NOTE | 2017-08-15 11:38 | CONS ---
Date/Time of Note Date/Time of Note DATE: 08/15/17 TIME: 11:37 Consult Date/Type/Reason Admit Date/Time Aug 08, 2017 at 19:54 Initial Consult Date 08/09/17 Type of Consultation: Pulmonary Ordering Provider: JUAN MOTLEY Subjective Patient comfortable this morning. No new events Objective Vital Signs Date Time Temp Pulse Resp B/P Pulse Ox O2 Delivery O2 Flow Rate FiO2 08/15/17 07:00 98.1 56 18 127/68 97 08/15/17 06:00 Room Air 08/15/17 00:08 2.0 08/15/17 00:03 21 Intake and Output 08/14/17 08/14/17 08/15/17 15:00 23:00 07:00 Intake Total 720 ml 420 ml Output Total 900 ml Balance 720 ml -480 ml Exam PHYSICAL EXAMINATION: GENERAL: Well-nourished, well-developed lady, comfortable at rest. No acute distress. VITAL SIGNS: NECK: Supple. No JVD. No lymphadenopathy. CARDIAC: S1, S2. No added sounds or murmurs. CHEST: Diminished air entry bilaterally. ABDOMEN: Soft, nontender. No guarding or rebound. EXTREMITIES: No cyanosis, clubbing or edema. NEUROLOGICALLY: No focal deficits. Results/Medications Result Diagram: 08/15/17 0437 08/15/17 0438 Results 24 hrs Laboratory Tests Test 08/15/17 04:37 08/15/17 04:38 08/15/17 06:47 08/15/17 08:13 White Blood Count 21.5 #H Red Blood Count 4.47 # Hemoglobin 9.9 #L Hematocrit 31.8 #L Mean Corpuscular Volume 71.1 L Mean Corpuscular Hemoglobin 22.1 L Mean Corpuscular Hemoglobin Concent 31.1 L Red Cell Distribution Width 18.6 H Platelet Count 292 # Mean Platelet Volume 9.0 Neutrophils % 72.4 Lymphocytes % 17.1 Monocytes % 6.3 Eosinophils % 0.0 Basophils % 0.2 Nucleated Red Blood Cells % 0.1 H Neutrophils # 15.6 H Lymphocytes # 3.7 H Monocytes # 1.4 H Eosinophils # 0.0 Basophils # 0.0 Nucleated Red Blood Cells # 0.0 Sodium Level 132 L Potassium Level 4.2 Chloride Level 100 Carbon Dioxide Level 27 Anion Gap 9 Blood Urea Nitrogen 24 H Creatinine 0.62 Glucose Level 135 Calcium Level 8.4 Phosphorus Level 3.6 Magnesium Level 1.9 Albumin 3.0 L C-Reactive Protein < 0.5 Lab Scanned Report BLOOD TRANSFUSION Medications Current Medications Ondansetron HCl (Zofran Inj) 4 mg Q6H PRN IV NAUSEA AND/OR VOMITING Last administered on 08/14/17 01:27; Admin Dose 4 MG; Start 08/08/17 at 22:30 Acetaminophen (Tylenol Liquid) 650 mg Q6H PRN PO PAIN LEVEL 1-3 OR FEVER Last administered on 08/11/17 00:32; Admin Dose 650 MG; Start 08/08/17 at 22:30 Morphine Sulfate (morphine) 2 mg Q4H PRN IV PAIN LEVEL 7-10; Start 08/08/17 at 22:30 Dexamethasone (Decadron) 4 mg Q6 IV Last administered on 08/15/17 05:54; Admin Dose 4 MG; Start 08/09/17 at 00:00 Famotidine (Pepcid Iv) 20 mg DAILY IV Last administered on 08/15/17 08:25; Admin Dose 20 MG; Start 08/12/17 at 10:00 Assessment/Plan Chief Complaint/Hosp Course IMPRESSION: 1. Recurrent right pleural effusion, likely secondary to underlying metastatic breast cancer. Right lung opacification secondary to pleural effusion , status post Pleurx catheter placement. Continue drainage daily. 2. 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 Status post resection of tumor with craniotomy. PLAN: 1. Continue Pleurx catheter drainage daily. 2. Continue steroids for cerebral edema. 3. Hematology oncology recommendations. Problems: MARTINEZ MASCORRO MD, [facility] Aug 15, 2017 11:38
[2017-08-15 14:00] VITALS: BP 118/69; RESP 18
[2017-08-15 14:25] LABS: ADD UMIC YES; UR ASCORBIC ACID NEGATIVE (NEGATIVE); UR BACTERIA MODERATE /HPF (NONE SEEN); UR BILIRUBIN (Dip) NEGATIVE (NEGATIVE); UR BLOOD (Dip) NEGATIVE (NEGATIVE); UR CLARITY SLIGHTLY CLOUDY (CLEAR); UR COLOR YELLOW (YELLOW); UR GLUCOSE (Dip) NEGATIVE (NEGATIVE); UR KETONES (Dip) NEGATIVE (NEGATIVE); UR LEUKOCYTE ESTERASE (Dip) NEGATIVE Leu/ul (NEGATIVE); UR MUCUS FEW /HPF (NONE SEEN); UR NITRITE (Dip) POSITIVE (NEGATIVE); UR RBC 1 /HPF (0-5); UR SPECIFIC GRAVITY (Dip) 1.016 (1.003-1.030); UR TOTAL PROTEIN (Dip) NEGATIVE (NEGATIVE); UR UROBILINOGEN (Dip) NEGATIVE (NEGATIVE)
--- NOTE | 2017-08-15 15:17 | PN ---
Date/Time of Note Date/Time of Note DATE: 08/15/17 TIME: 15:15 Assessment/Plan VTE Prophylaxis VTE Prophylaxis Intervention: SCD's Lines/Catheters IV Catheter Type (from [facility]): Central Line Central line still needed: Yes Urinary Cath still in place: No Assessment/Plan Assessment/Plan 1. Breast cancer with metastases to the lung, liver, brain - s/p craniectomy with mesh placement on 08/11/17 - Neurosurgery on board and recommendations appreciated. Awaiting clearance prior to initiating chemotx - Oncology on board and consultation appreciated. She has been responsive to therapy in the past and still has many more treatment options which she could benefit from. Given her Brain mets, Dr. Mendoza would consider a combination of Xeloda and Lapatinib which can penetrate the blood brain barrier. Once she stabilizes can restart Tamoxifen as well 2. 6 mm [id number] midline herniation and effacement of the right lateral ventricle - mental status remains stable - s/p craniectomy - Decadron for cerebral edema 3. Large right-sided pleural effusion - Pleurex cath in place, draining well 4. Anemia of chronic disease - stable 5. Shortness of breath - remains stable Subjective 24 Hr Interval Summary Free Text/Dictation Patient lethargic this am but responding appropriately to questions and denies any new complaints. No acute overnight events. Exam/Review of Systems Vital Signs Vitals Vital Signs Date Time Temp Pulse Resp B/P Pulse Ox O2 Delivery O2 Flow Rate FiO2 08/15/17 14:00 97.7 74 18 118/69 97 08/15/17 06:00 Room Air 08/15/17 00:08 2.0 08/15/17 00:03 21 Intake and Output 08/14/17 08/14/17 08/15/17 15:00 23:00 07:00 Intake Total 720 ml 420 ml Output Total 900 ml Balance 720 ml -480 ml Exam General: NAD, lethargic but responding appropriately. Head: R side chucho in place- no discharge or drainage Neck: Supple, nontender, midline Respiratory: diminished diffusely. no wheezes or rhonchi appreciated Cardiovascular: regular rate, no obvious murmurs Gastrointestinal: non-tender to palpation, bowel sounds heard. Skin: No new skin lesions, R chest pleurex catheter Results Result Diagram: 08/15/17 0437 08/15/17 0438 Results 24 hrs Laboratory Tests Test 08/15/17 04:37 08/15/17 04:38 08/15/17 06:47 08/15/17 08:13 White Blood Count 21.5 #H Red Blood Count 4.47 # Hemoglobin 9.9 #L Hematocrit 31.8 #L Mean Corpuscular Volume 71.1 L Mean Corpuscular Hemoglobin 22.1 L Mean Corpuscular Hemoglobin Concent 31.1 L Red Cell Distribution Width 18.6 H Platelet Count 292 # Mean Platelet Volume 9.0 Neutrophils % 72.4 Lymphocytes % 17.1 Monocytes % 6.3 Eosinophils % 0.0 Basophils % 0.2 Nucleated Red Blood Cells % 0.1 H Neutrophils # 15.6 H Lymphocytes # 3.7 H Monocytes # 1.4 H Eosinophils # 0.0 Basophils # 0.0 Nucleated Red Blood Cells # 0.0 Sodium Level 132 L Potassium Level 4.2 Chloride Level 100 Carbon Dioxide Level 27 Anion Gap 9 Blood Urea Nitrogen 24 H Creatinine 0.62 Glucose Level 135 Calcium Level 8.4 Phosphorus Level 3.6 Magnesium Level 1.9 Albumin 3.0 L C-Reactive Protein < 0.5 Lab Scanned Report BLOOD TRANSFUSION Test 08/15/17 11:45 Urine Color YELLOW Urine Clarity SLIGHTLY CLOUDY A Urine pH 5.0 Urine Specific [place] 1.016 Urine Ketones NEGATIVE Urine Nitrite POSITIVE A Urine Bilirubin NEGATIVE Urine Urobilinogen NEGATIVE Urine Leukocyte Esterase NEGATIVE Urine Microscopic RBC 1 Urine Microscopic WBC 3 Urine Bacteria MODERATE Urine Mucus FEW A Urine Hemoglobin NEGATIVE Urine Glucose NEGATIVE Urine Total Protein NEGATIVE Medications Medications Current Medications Ondansetron HCl (Zofran Inj) 4 mg Q6H PRN IV NAUSEA AND/OR VOMITING Last administered on 08/14/17 01:27; Admin Dose 4 MG; Start 08/08/17 at 22:30 Acetaminophen (Tylenol Liquid) 650 mg Q6H PRN PO PAIN LEVEL 1-3 OR FEVER Last administered on 08/11/17 00:32; Admin Dose 650 MG; Start 08/08/17 at 22:30 Morphine Sulfate (morphine) 2 mg Q4H PRN IV PAIN LEVEL 7-10; Start 08/08/17 at 22:30 Dexamethasone (Decadron) 4 mg Q6 IV Last administered on 08/15/17 13:30; Admin Dose 4 MG; Start 08/09/17 at 00:00 Famotidine (Pepcid Iv) 20 mg DAILY IV Last administered on 08/15/17t 08:25; Admin Dose 20 MG; Start 08/12/17 at 10:00 ZEUS TABOR MD Aug 15, 2017 15:17
[2017-08-15 19:56] VITALS: BP 120/68; RESP 16
--- NOTE | 2017-08-15 22:15 | CONS ---
Date/Time of Note Date/Time of Note DATE: 08/15/17 TIME: 22:13 Assessment/Plan Assessment/Plan Chief Complaint/Hosp Course 46 yo with metastatic breast cancer, who was off therapy for at least 5 month, who presents with recurrent pleural effusion and large brain metastasis. #Her2+/ER+/ND+ metastatic breast ca -pt is non compliant but when she receives therapy, she is quite responsive to therapy -therefore at this time, although she has terminal disease, there are still many more treatment options which she could benefit from -given her Brain mets, I would consider a combination of Xeloda and Lapatinib which can penetrate the blood brain barrier -once she stabilizes can restart Tamoxifen as well -once patient has completed her post op radiation will initiate chemotherapy #Brain Mets -appreciate neurosurgery recs - now s/p right frontal craniectomy, resection of tumor, microscope, image guidance, titanium mesh cranioplast -will refer the patient to rad onc once she stabilizes for post op radiation . rad onc to see patient in house -continue Decadron at4mg IV q 6 #Pleural Effusion -s/p pleurex catheter placement -will check cytology and re-evaluate her prognostic markers A total 40 min was spent face to face in speaking with the patient of which > 50 % was spent in counseling and coordination fo care and details question and answer session Problems: Consultation Date/Type/Reason Admit Date/Time Aug 08, 2017 at 19:54 Initial Consult Date 08/09/17 Type of Consultation: Oncology Reason for Consultation metastatic breast cancer Referring Provider: JUAN MOTLEY 24 HR Interval Summary Free Text/Dictation pt continues to recover from surgery Exam/Review of Systems Vital Signs Vitals Vital Signs Date Time Temp Pulse Resp B/P Pulse Ox O2 Delivery O2 Flow Rate FiO2 08/15/17 19:56 98.0 61 16 120/68 98 08/15/17 06:00 Room Air 08/15/17 00:08 2.0 08/15/17 00:03 21 Intake and Output 08/14/17 08/14/17 08/15/17 15:00 23:00 07:00 Intake Total 720 ml 420 ml Output Total 900 ml Balance 720 ml -480 ml Exam Constitutional: alert, oriented Head: other (s/p craniotomy . surgical scar healing well) ENMT: nl external ears & nose Neck: supple Respiratory: clear to auscultation, normal air movement Cardiovascular: regular rate and rhythm Gastrointestinal: soft Musculoskeletal: nl extremities to inspection Results Result Diagram: 08/15/17 0437 08/15/17 0438 Results 24 hrs Laboratory Tests Test 08/15/17 04:37 08/15/17 04:38 08/15/17 06:47 08/15/17 08:13 White Blood Count 21.5 #H Red Blood Count 4.47 # Hemoglobin 9.9 #L Hematocrit 31.8 #L Mean Corpuscular Volume 71.1 L Mean Corpuscular Hemoglobin 22.1 L Mean Corpuscular Hemoglobin Concent 31.1 L Red Cell Distribution Width 18.6 H Platelet Count 292 # Mean Platelet Volume 9.0 Neutrophils % 72.4 Lymphocytes % 17.1 Monocytes % 6.3 Eosinophils % 0.0 Basophils % 0.2 Nucleated Red Blood Cells % 0.1 H Neutrophils # 15.6 H Lymphocytes # 3.7 H Monocytes # 1.4 H Eosinophils # 0.0 Basophils # 0.0 Nucleated Red Blood Cells # 0.0 Sodium Level 132 L Potassium Level 4.2 Chloride Level 100 Carbon Dioxide Level 27 Anion Gap 9 Blood Urea Nitrogen 24 H Creatinine 0.62 Glucose Level 135 Calcium Level 8.4 Phosphorus Level 3.6 Magnesium Level 1.9 Albumin 3.0 L C-Reactive Protein < 0.5 Lab Scanned Report BLOOD TRANSFUSION Test 08/15/17 11:45 Urine Color YELLOW Urine Clarity SLIGHTLY CLOUDY A Urine pH 5.0 Urine Specific [place] 1.016 Urine Ketones NEGATIVE Urine Nitrite POSITIVE A Urine Bilirubin NEGATIVE Urine Urobilinogen NEGATIVE Urine Leukocyte Esterase NEGATIVE Urine Microscopic RBC 1 Urine Microscopic WBC 3 Urine Bacteria MODERATE Urine Mucus FEW A Urine Hemoglobin NEGATIVE Urine Glucose NEGATIVE Urine Total Protein NEGATIVE Medications Medications Current Medications Ondansetron HCl (Zofran Inj) 4 mg Q6H PRN IV NAUSEA AND/OR VOMITING Last administered on 08/14/17 01:27; Admin Dose 4 MG; Start 08/08/17 at 22:30 Acetaminophen (Tylenol Liquid) 650 mg Q6H PRN PO PAIN LEVEL 1-3 OR FEVER Last administered on 08/11/17 00:32; Admin Dose 650 MG; Start 08/08/17 at 22:30 Morphine Sulfate (morphine) 2 mg Q4H PRN IV PAIN LEVEL 7-10; Start 08/08/17 at 22:30 Dexamethasone (Decadron) 4 mg Q6 IV Last administered on 08/15/17 17:39; Admin Dose 4 MG; Start 08/09/17 at 00:00 Famotidine (Pepcid Iv) 20 mg DAILY IV Last administered on 08/15/17 08:25; Admin Dose 20 MG; Start 08/12/17 at 10:00 ANTWON DYE M.D. Aug 15, 2017 22:15
[2017-08-16] MEDS: DEXAMETHASONE 4 MG/ML 1 ML INJ IV SCH ×4 (00:24→17:24)
[2017-08-16 02:04] VITALS: BP 119/68; RESP 16
[2017-08-16 05:24] LABS: ABNORMAL IP MESSAGE 1; BASOPHILS % 0.2 % (0.0-2.0); HEMATOCRIT 30.1 % (37.0-47.0); HEMOGLOBIN 9.5 g/dl (12.0-16.0); LYMPHOCYTES % 13.3 % (15.0-51.0); MEAN CORPUSCULAR HEMOGLOBIN 22.7 pg (29.0-33.0); MEAN CORPUSCULAR HGB CONC 31.6 g/dl (32.0-37.0); MEAN CORPUSCULAR VOLUME 71.8 fl (82.0-101.0); MEAN PLATELET VOLUME 9.2 fl (7.4-10.4); MONOCYTE # 1.6 10^3/ul (0.3-0.9); MONOCYTES % 7.1 % (0.0-11.0); NEUTROPHILS % 75.1 % (39.0-77.0); PLATELET COUNT 265 10^3/UL (140-415); RED BLOOD COUNT 4.19 10^6/ul (4.20-5.40); WHITE BLOOD COUNT 22.6 10^3/ul (4.8-10.8)
[2017-08-16 05:50] LABS: ALBUMIN 2.7 g/dl (3.3-4.9); CALCIUM 7.9 mg/dl (8.4-10.2); CREATININE 0.56 mg/dl (0.44-1.00); MAGNESIUM 1.9 mg/dl (1.7-2.5); PHOSPHORUS 3.7 mg/dl (2.5-4.9); POTASSIUM 4.2 mmol/L (3.5-5.1)
[2017-08-16 05:59] LABS: POSITIVE DIFF @See below
[2017-08-16 08:00] VITALS: BP 137/65; RESP 18
[2017-08-16] MEDS: FAMOTIDINE 20 MG INJ IV SCH (08:23)
[2017-08-16 12:48] VITALS: BP 111/67; RESP 18
--- NOTE | 2017-08-16 17:37 | PN ---
Date/Time of Note Date/Time of Note DATE: 08/16/17 TIME: 17:32 Assessment/Plan VTE Prophylaxis VTE Prophylaxis Intervention: SCD's Lines/Catheters IV Catheter Type (from [facility]): Saline Lock Urinary Cath still in place: No Assessment/Plan Assessment/Plan 1. Breast cancer with metastases to the lung, liver, brain - s/p craniectomy with mesh placement on 08/11/17 - Neurosurgery on board and recommendations appreciated. - Oncology on board and consultation appreciated. She has been responsive to therapy in the past and still has many more treatment options which she could benefit from. Given her Brain mets, Dr. Mendoza would consider a combination of Xeloda and Lapatinib which can penetrate the blood brain barrier. Once she stabilizes can restart Tamoxifen as well 2. 6 mm ecxvq-sk-[id number] midline herniation and effacement of the right lateral ventricle - mental status remains stable - s/p craniectomy - Decadron for cerebral edema 3. Large right-sided pleural effusion - Pleurex cath in place, draining well 4. Anemia of chronic disease - stable 5. Shortness of breath - remains stable 6. Disposition - Patient eventually would like to return home. Awaiting clearance from specialists prior to d/c Subjective 24 Hr Interval Summary Free Text/Dictation Patient doing well and feeling more like herself this am. Tolerating diet and denies any headaches, dizziness, blurred vision, nausea, vomiting, confusion, or abdominal issues. No acute overnight events. Exam/Review of Systems Vital Signs Vitals Vital Signs Date Time Temp Pulse Resp B/P Pulse Ox O2 Delivery O2 Flow Rate FiO2 08/16/17 12:48 98.5 66 18 111/67 97 08/15/17 06:00 Room Air 08/15/17 00:08 2.0 08/15/17 00:03 21 Intake and Output 08/15/17 08/15/17 08/16/17 15:00 23:00 07:00 Intake Total 1060 ml 600 ml Output Total 1150 ml Balance -90 ml 600 ml Exam General: NAD, awake and alert. In good spirits Head: R side chucho in place- no discharge or drainage Neck: Supple, mild tenderness where central line removed. No erythema, drainage , or discharge appreciated Respiratory: diminished diffusely. no wheezes or rhonchi appreciated Cardiovascular: regular rate, no obvious murmurs Gastrointestinal: non-tender to palpation, bowel sounds heard. Skin: No new skin lesions, R chest pleurex catheter Results Result Diagram: 08/16/1743608/16/17436 Results 24 hrs Laboratory Tests Test 08/16/17 04:37 08/16/17 07:29 08/16/17 07:51 08/16/17 10:54 White Blood Count 22.6 H Red Blood Count 4.19 L Hemoglobin 9.5 L Hematocrit 30.1 L Mean Corpuscular Volume 71.8 L Mean Corpuscular Hemoglobin 22.7 L Mean Corpuscular Hemoglobin Concent 31.6 L Red Cell Distribution Width 19.0 H Platelet Count 265 Mean Platelet Volume 9.2 Neutrophils % 75.1 Lymphocytes % 13.3 L Monocytes % 7.1 Eosinophils % 0.0 Basophils % 0.2 Nucleated Red Blood Cells % 0.0 Neutrophils # 17.0 H Lymphocytes # 3.0 H Monocytes # 1.6 H Eosinophils # 0.0 Basophils # 0.0 Nucleated Red Blood Cells # 0.0 Sodium Level 130 L Potassium Level 4.2 Chloride Level 100 Carbon Dioxide Level 26 Anion Gap 8 Blood Urea Nitrogen 26 H Creatinine 0.56 Glucose Level 135 Calcium Level 7.9 L Phosphorus Level 3.7 Magnesium Level 1.9 Albumin 2.7 L Lab Scanned Report REFERENCE LAB REFERENCE LAB Bedside Glucose 190 Medications Medications Current Medications Ondansetron HCl (Zofran Inj) 4 mg Q6H PRN IV NAUSEA AND/OR VOMITING Last administered on 08/14/17 01:27; Admin Dose 4 MG; Start 08/08/17 at 22:30 Acetaminophen (Tylenol Liquid) 650 mg Q6H PRN PO PAIN LEVEL 1-3 OR FEVER Last administered on 08/11/17 00:32; Admin Dose 650 MG; Start 08/08/17 at 22:30 Morphine Sulfate (morphine) 2 mg Q4H PRN IV PAIN LEVEL 7-10; Start 08/08/17 at 22:30 Dexamethasone (Decadron) 4 mg Q6 IV Last administered on 08/16/17 17:24; Admin Dose 4 MG; Start 08/09/17 at 00:00 Famotidine (Pepcid) 20 mg DAILY PO ; Start 08/17/17 at 09:00 ZEUS TABOR MD Aug 16, 2017 17:37
[2017-08-16] MEDS ORDERED: traMADol 50 MG TAB PO PRN (23:00)
[2017-08-16] MEDS ORDERED: DOCUSATE SODIUM 100 MG CAP PO PRN (23:00)
[2017-08-16] MEDS ORDERED: BISACODYL (EC) 5 MG TAB PO PRN (23:00)
[2017-08-17] MEDS: DEXAMETHASONE 4 MG/ML 1 ML INJ IV SCH ×4 (00:25→17:45)
[2017-08-17 02:26] VITALS: BP 122/63; RESP 20
[2017-08-17 05:42] LABS: ABNORMAL IP MESSAGE 1; BASOPHIL # 0.1 10^3/ul (0.0-0.1); BASOPHILS % 0.2 % (0.0-2.0); HEMATOCRIT 31.4 % (37.0-47.0); HEMOGLOBIN 9.8 g/dl (12.0-16.0); LYMPHOCYTES # 3.5 10^3/ul (0.8-2.9); LYMPHOCYTES % 13.2 % (15.0-51.0); MEAN CORPUSCULAR HEMOGLOBIN 22.7 pg (29.0-33.0); MEAN CORPUSCULAR HGB CONC 31.2 g/dl (32.0-37.0); MEAN CORPUSCULAR VOLUME 72.9 fl (82.0-101.0); MONOCYTE # 2.1 10^3/ul (0.3-0.9); MONOCYTES % 8.1 % (0.0-11.0); NEUTROPHIL # 18.9 10^3/ul (1.6-7.5); NEUTROPHILS % 72.1 % (39.0-77.0); NUCLEATED RED BLOOD CELLS% 0.1 /100WBC (0.0-0.0); PLATELET COUNT 269 10^3/UL (140-415); RED BLOOD COUNT 4.31 10^6/ul (4.20-5.40); RED CELL DISTRIBUTION WIDTH 19.7 % (11.5-14.5); WHITE BLOOD COUNT 26.2 10^3/ul (4.8-10.8)
[2017-08-17 05:47] LABS: POSITIVE DIFF @See below
[2017-08-17 06:18] LABS: ALBUMIN 2.7 g/dl (3.3-4.9); CALCIUM 8.4 mg/dl (8.4-10.2); CREATININE 0.62 mg/dl (0.44-1.00); MAGNESIUM 1.9 mg/dl (1.7-2.5); PHOSPHORUS 3.7 mg/dl (2.5-4.9)
[2017-08-17 07:00] VITALS: BP 126/68; RESP 20
[2017-08-17] MEDS: FAMOTIDINE 20 MG TAB PO SCH (08:38)
[2017-08-17 14:00] VITALS: BP 110/64; RESP 18
--- NOTE | 2017-08-17 15:02 | PN ---
Date/Time of Note Date/Time of Note DATE: 08/17/17 TIME: 14:59 Assessment/Plan VTE Prophylaxis VTE Prophylaxis Intervention: ambulation Lines/Catheters IV [facility] Type (from [facility]): Saline Lock Urinary Cath still in place: No Assessment/Plan Assessment/Plan 1. Breast cancer with metastases to the lung, liver, brain - s/p craniectomy with mesh placement on 08/11/17 - Neurosurgery on board and recommendations appreciated. - Oncology on board and consultation appreciated. She has been responsive to therapy in the past and still has many more treatment options which she could benefit from. Given her Brain mets, Dr. Mendoza would consider a combination of Xeloda and Lapatinib which can penetrate the blood brain barrier. Once she stabilizes can restart Tamoxifen as well 2. 6 mm jjoak-gz-kttt midline herniation and effacement of the right lateral ventricle - mental status remains stable - s/p craniectomy - Decadron for cerebral edema 3. Large right-sided pleural effusion - Pleurex cath in place, draining well 4. Anemia of chronic disease - stable and continues to trend up 5. Shortness of breath - resolved 6. Disposition - Continue monitoring and awaiting clearance from specialists. Patient was told will here until Monday at least Subjective 24 Hr Interval Summary Free Text/Dictation Patient doing well and ambulating with little assistance. Denies any headaches , fevers, chills, dizziness, vision changes, chest pain, or shortness of breath. No acute overnight events and no new complaints. Exam/Review of Systems Vital Signs Vitals Vital Signs Date Time Temp Pulse Resp B/P Pulse Ox O2 Delivery O2 Flow Rate FiO2 08/17/17 14:00 98.7 18 110/64 98 08/17/17 07:00 79 08/15/17 06:00 Room Air 08/15/17 00:08 2.0 08/15/17 00:03 21 Intake and Output 08/16/17 08/16/17 08/17/17 15:00 23:00 07:00 Intake Total 840 ml 1200 ml Output Total 300 ml 1100 ml Balance -300 ml 840 ml 100 ml Exam General: NAD, awake and alert. pleasant Head: R side chucho in place- no discharge or drainage Neck: Supple Respiratory: diminished diffusely. no wheezes or rhonchi appreciated Cardiovascular: regular rate, no obvious murmurs Gastrointestinal: non-tender to palpation, bowel sounds heard. Skin: No new skin lesions, R chest pleurex catheter Results Result Diagram: 08/17/17 0503 08/17/17 0503 Results 24 hrs Laboratory Tests Test 08/17/17 05:03 White Blood Count 26.2 H Red Blood Count 4.31 Hemoglobin 9.8 L Hematocrit 31.4 L Mean Corpuscular Volume 72.9 L Mean Corpuscular Hemoglobin 22.7 L Mean Corpuscular Hemoglobin Concent 31.2 L Red Cell Distribution Width 19.7 H Platelet Count 269 Mean Platelet Volume 9.0 Neutrophils % 72.1 Lymphocytes % 13.2 L Monocytes % 8.1 Eosinophils % 0.0 Basophils % 0.2 Nucleated Red Blood Cells % 0.1 H Neutrophils # 18.9 H Lymphocytes # 3.5 H Monocytes # 2.1 H Eosinophils # 0.0 Basophils # 0.1 Nucleated Red Blood Cells # 0.0 Sodium Level 130 L Potassium Level 4.0 Chloride Level 100 Carbon Dioxide Level 26 Anion Gap 8 Blood Urea Nitrogen 23 H Creatinine 0.62 Glucose Level 126 Calcium Level 8.4 Phosphorus Level 3.7 Magnesium Level 1.9 Albumin 2.7 L Medications Medications Current Medications Ondansetron HCl (Zofran Inj) 4 mg Q6H PRN IV NAUSEA AND/OR VOMITING Last administered on 08/14/17 01:27; Admin Dose 4 MG; Start 08/08/17 at 22:30 Acetaminophen (Tylenol Liquid) 650 mg Q6H PRN PO PAIN LEVEL 1-3 OR FEVER Last administered on 08/11/17 00:32; Admin Dose 650 MG; Start 08/08/17 at 22:30 Morphine Sulfate (morphine) 2 mg Q4H PRN IV PAIN LEVEL 7-10; Start 08/08/17 at 22:30 Dexamethasone (Decadron) 4 mg Q6 IV Last administered on 08/17/17 13:10; Admin Dose 4 MG; Start 08/09/17 at 00:00 Famotidine (Pepcid) 20 mg DAILY PO Last administered on 08/17/17 08:38; Admin Dose 20 MG; Start 08/17/17 at 09:00 Tramadol HCl (Ultram) 50 mg Q6H PRN PO PAIN; Start 08/16/17 at 23:00 Docusate Sodium (Colace) 100 mg BID PRN PO CONSTIPATION; Start 08/16/17 at 23: 00 Bisacodyl (Dulcolax) 5 mg DAILY PRN PO CONSTIPATION; Start 08/16/17 at 23:00 ZEUS TABOR MD Aug 17, 2017 15:02
--- NOTE | 2017-08-17 15:55 | CONS ---
DATE OF ADMISSION: 08/08/2017 DATE OF CONSULTATION: 08/17/2017 DIAGNOSIS: Metastatic breast cancer with calvarial and brain metastases. REFERRING PHYSICIAN: Alma Doan MD. CONSULTING PHYSICIAN: JOEY KAY MD. HISTORY OF PRESENT ILLNESS: The patient is a 46-year-old female whose oncologic history dates back to 2012 when on 04/09/2017 she underwent a right modified radical mastectomy for reported 3 cm poorl y differentiated invasive ductal carcinoma with 7 of 8 positive lymph nodes. The tumor was triple p ositive with a high Ki-67. She was managed by Dr. Coleman with adjuvant Taxotere and Cytoxan ila g with Herceptin completed in February 2014. Her treatment was interrupted reportedly due to patient n oncompliance. She was thereafter initiated on tamoxifen for which she only took 2 months. It does not appear that she received adjuvant radiation treatment. In 10/2014, the patient presented for re assessment with Dr. Doan and resumed tamoxifen but stopped the medication again due to apparent tox icity. The patient was lost to followup until 01/2016 when she represented and was subsequently fou nd to have evidence of recurrent/metastatic disease. A CT PET scan apparently revealed right axilla ry lymphadenopathy, intrathoracic lymphadenopathy as well as metastatic disease to the lung, liver a nd bone. There was a right pleural effusion as well. Genetic testing was performed and the patient was found to be BRCA negative. In March 2016, she was reinitiated on systemic therapy with Taxotere, Cytoxan and Herceptin and received 6 cycles through 09/2016. Tamoxifen was then reinitiated. By 04/2016, CT PET scan demonstrated significant response with resolution of the effusion, lymphadenopat hy and bony metastases and a decrease in the size of liver metastases. By 12/2016, a CT PET scan s howed continued response and disease stability. She did not return for followup after 01/2017 but w as subsequently reassessed in May upon developing shortness of breath and being diagnosed with recu rrent pleural effusions. A PleurX catheter was placed and subsequently removed. Cytology was posit yosi for malignant cells. PET imaging on 08/04/2017 described new metabolic uptake in the anterior t emporal lobe, concerning for brain metastases, extensive new liver disease, progressive osseous dise ase and lymphadenopathy in the low neck, right axilla, chest and abdomen. On 08/08/2017 a brain MRI revealed a right frontal calvarial mass extending to the overlying scalp soft tissue into the under lying meninges measuring up to 5 cm. There was a second subcentimeter mass in the right sphenoid te mporal buttress extending to the dura measuring 2 cm. Also noted was a left parotid lobe lesion radha suring 9 mm. There was midline shift and no herniation. At the time, the patient denied any headac hes, nausea or vomiting or seizure activity or other neurologic issues. A CT scan also performed on 08/08/2017 confirmed the presence of this large right trans-spatial mass involving the right fronta l scalp and extending through the calvarium into the extraaxial and intraaxial spaces with extensive perilesional edema. Other masses which were hyperdense were noted in the left parietal convexity m easuring 4 and 9 mm each. There was effacement of the right lateral ventricle and 6 mm of right to left midline shift and subfalcine herniation but no hydrocephalus or acute hemorrhage. Upon hospita lization at [facility], decision was to replace a PleurX catheter and initiate delvin roids for cerebral edema. She was assessed by Dr. Kay who recommended craniectomy and reconstru ction of the skull with mesh cranioplasty with concurrent resection of the mass. Such surgery was p erformed on 08/11/2017 and the patient is recovering. Post-surgical MRI on 08/12/2017 described int erval right frontoparietal temporal craniectomy with removal of large extraaxial metastatic lesion. There was only a mild residual amount of vasogenic edema. There was redemonstration of small enhan cing hemorrhagic metastases involving the paramedian left occipital lobe measuring 11 x 13 mm and 7 x 5 mm respectively. There was a stable 20 x 11 mm extraaxial mass involving the right sphenoid tem poral buttress and a subtle area of enhancement involving the left superior cerebellar hemisphere me asuring 4 mm. The known left temporal lobe enhancing mass was not well visualized on this examinati on. PAST MEDICAL HISTORY: As above. PAST SURGICAL HISTORY: Right, mastectomy. Right craniectomy with mesh placement. CURRENT MEDICATIONS: Zofran, morphine p.r.n., Pepcid, Decadron 4 mg q.6h. ALLERGIES TO MEDICATIONS: None. SOCIAL HISTORY: Denies, tobacco use. No significant alcohol use. FAMILY HISTORY: No family history of breast cancer. REVIEW OF SYSTEMS: GENERAL: Denies fevers chills or sweats. ENT: Denies otalgia, dysphagia, hoarseness,. NEUROLOGIC: As above. ENDOCRINE: No history of diabetes or thyroid disease. SKIN: No history of lupus, scleroderma or shingles,. MUSCULOSKELETAL: She has a generalized mild joint discomfort. RESPIRATORY: She has been having shortness of breath with exertion but no cough or hemoptysis. CARDIOVASCULAR: No chest, pain, palpitations, heart attacks or strokes. SKIN: No history of lupus scleroderma or shingles. PHYSICAL EXAMINATION,: GENERAL: Well-developed female in no distress. HEENT: Normal. The craniectomy scar is healing well without discharge or wound separation or eryth kobe. Sclerae are anicteric. Extraocular motions are intact. No facial asymmetry or droop. Tongue moves well without deviation. No palpable cervical or supraclavicular adenopathy. Palpable right axillary adenopathy. LUNGS: Decreased breath sound at the bases without wheezes or rhonchi. ABDOMEN: Soft, nontender, without, rebound or guarding. EXTREMITIES: No cyanosis or edema. NEUROLOGIC: Grossly nonfocal. No cranial nerve abnormalities. The patient can move all extremitie s, distally and proximally against gravity. No focal motor or sensory deficits,. ASSESSMENT AND PLAN: The patient is a 46-year-old female with known metastatic carcinoma of the noelle ast with involvement of brain lung, pleural fluid, liver and, bone. She has been noncompliant with care on numerous occasions. She has just undergone resection of a large calvarial met with soft tis daquan and intraaxial and extraaxial extension. Plan: Dr. Doan is considering initiating systemic th erapy with lapatinib and Xeloda. We reviewed the case and given the potential interaction with radi otherapy, I would recommend that the Xeloda be initiated post-completion of treatment. I am comfort able with concurrent lapatinib and radiation treatment. Given the extent of her disease as well as her noncompliance, I would recommend whole brain irradiat ion over 3 weeks, 2 doses of 3750 cGy. Perhaps consideration could be given to initiating Namenda t o minimize neurocognitive change. We did review the nature of the risks and benefits of whole brain radiation. Side effects were discussed including but not limited to fatigue, skin reaction, hair l oss, neurocognitive change. Questions were answered. She is interested in proceeding with qian samayoa. I will review with Dr. Kay as when he is comfortable with me starting this process. Thank you for allowing me to participate with this patient's assessment and care. Dictated By: ALEX UGALDE/AFIA Conf#: [id number] DID#: [id number]
--- NOTE | 2017-08-17 16:27 | CONS ---
Date/Time of Note Date/Time of Note DATE: 08/17/17 TIME: 16:21 Assessment/Plan Assessment/Plan Chief Complaint/Hosp Course 46 yo with metastatic breast cancer, who was off therapy for at least 5 month, who presents with recurrent pleural effusion and large brain metastasis. #Her2+/ER+/NC+ metastatic breast ca -pt is non compliant but when she receives therapy, she is quite responsive to therapy -therefore at this time, although she has terminal disease, there are still many more treatment options which she could benefit from -given her Brain mets, I would consider a combination of Xeloda and Lapatinib which can penetrate the blood brain barrier -at this time will restart Tamoxifen -once patient has completed her post op radiation will initiate chemotherapy #Brain Mets -appreciate neurosurgery recs - now s/p right frontal craniectomy, resection of tumor, microscope, image guidance, titanium mesh cranioplast -appreciate rad onc recs: they have recommended whole brain irradiation over 3 weeks, 2 doses of 3750 cGy. will consider Namenda with radiation. will try to get Lapatinib in house to start lizzy. will plan to start Xeloda after completion of radiation -continue Decadron at4mg IV q 6 #Pleural Effusion -s/p pleurex catheter placement -will check cytology and re-evaluate her prognostic markers A total 40 min was spent face to face in speaking with the patient of which > 50 % was spent in counseling and coordination fo care and details question and answer session Problems: Consultation Date/Type/Reason Admit Date/Time Aug 08, 2017 at 19:54 Initial Consult Date 08/09/17 Type of Consultation: Oncology Reason for Consultation metastatic Her 2 positive breast cancer Referring Provider: JUAN MOTLEY 24 HR Interval Summary Free Text/Dictation pt is recovering well from her craniotomy. seen by radiation yesterday Exam/Review of Systems Vital Signs Vitals Vital Signs Date Time Temp Pulse Resp B/P Pulse Ox O2 Delivery O2 Flow Rate FiO2 08/17/17 14:00 98.7 18 110/64 98 08/17/17 07:00 79 08/15/17 06:00 Room Air 08/15/17 00:08 2.0 08/15/17 00:03 21 Intake and Output 08/16/17 08/16/17 08/17/17 15:00 23:00 07:00 Intake Total 840 ml 1200 ml Output Total 300 ml 1100 ml Balance -300 ml 840 ml 100 ml Exam Constitutional: alert Psych: no complaints Head: normocephalic Eyes: nl conjunctiva ENMT: nl external ears & nose Neck: non-tender, supple Respiratory: clear to auscultation, normal air movement Cardiovascular: regular rate and rhythm Gastrointestinal: soft Musculoskeletal: nl extremities to inspection, nl gait and stance Results Result Diagram: 08/17/17 0503 08/17/17 0503 Results 24 hrs Laboratory Tests Test 08/17/17 05:03 White Blood Count 26.2 H Red Blood Count 4.31 Hemoglobin 9.8 L Hematocrit 31.4 L Mean Corpuscular Volume 72.9 L Mean Corpuscular Hemoglobin 22.7 L Mean Corpuscular Hemoglobin Concent 31.2 L Red Cell Distribution Width 19.7 H Platelet Count 269 Mean Platelet Volume 9.0 Neutrophils % 72.1 Lymphocytes % 13.2 L Monocytes % 8.1 Eosinophils % 0.0 Basophils % 0.2 Nucleated Red Blood Cells % 0.1 H Neutrophils # 18.9 H Lymphocytes # 3.5 H Monocytes # 2.1 H Eosinophils # 0.0 Basophils # 0.1 Nucleated Red Blood Cells # 0.0 Sodium Level 130 L Potassium Level 4.0 Chloride Level 100 Carbon Dioxide Level 26 Anion Gap 8 Blood Urea Nitrogen 23 H Creatinine 0.62 Glucose Level 126 Calcium Level 8.4 Phosphorus Level 3.7 Magnesium Level 1.9 Albumin 2.7 L Medications Medications Current Medications Ondansetron HCl (Zofran Inj) 4 mg Q6H PRN IV NAUSEA AND/OR VOMITING Last administered on 08/14/17 01:27; Admin Dose 4 MG; Start 08/08/17 at 22:30 Acetaminophen (Tylenol Liquid) 650 mg Q6H PRN PO PAIN LEVEL 1-3 OR FEVER Last administered on 08/11/17 00:32; Admin Dose 650 MG; Start 08/08/17 at 22:30 Morphine Sulfate (morphine) 2 mg Q4H PRN IV PAIN LEVEL 7-10; Start 08/08/17 at 22:30 Dexamethasone (Decadron) 4 mg Q6 IV Last administered on 08/17/17 13:10; Admin Dose 4 MG; Start 08/09/17 at 00:00 Famotidine (Pepcid) 20 mg DAILY PO Last administered on 08/17/17 08:38; Admin Dose 20 MG; Start 08/17/17 at 09:00 Tramadol HCl (Ultram) 50 mg Q6H PRN PO PAIN; Start 08/16/17 at 23:00 Docusate Sodium (Colace) 100 mg BID PRN PO CONSTIPATION; Start 08/16/17 at 23: 00 Bisacodyl (Dulcolax) 5 mg DAILY PRN PO CONSTIPATION; Start 08/16/17 at 23:00 ANTWON DYE M.D. Aug 17, 2017 16:27
[2017-08-17 19:40] VITALS: BP 121/64; RESP 20
[2017-08-18] MEDS: DEXAMETHASONE 4 MG/ML 1 ML INJ IV SCH ×6 (01:04→22:07)
[2017-08-18 02:00] VITALS: BP 116/59; RESP 18
[2017-08-18 05:57] LABS: ABNORMAL IP MESSAGE 1; BASOPHILS % 0.1 % (0.0-2.0); HEMATOCRIT 29.3 % (37.0-47.0); HEMOGLOBIN 9.2 g/dl (12.0-16.0); LYMPHOCYTES # 3.2 10^3/ul (0.8-2.9); LYMPHOCYTES % 13.4 % (15.0-51.0); MEAN CORPUSCULAR HEMOGLOBIN 22.6 pg (29.0-33.0); MEAN CORPUSCULAR HGB CONC 31.4 g/dl (32.0-37.0); MEAN PLATELET VOLUME 9.6 fl (7.4-10.4); MONOCYTE # 1.7 10^3/ul (0.3-0.9); MONOCYTES % 7.2 % (0.0-11.0); NEUTROPHIL # 17.3 10^3/ul (1.6-7.5); PLATELET COUNT 261 10^3/UL (140-415); RED BLOOD COUNT 4.07 10^6/ul (4.20-5.40); WHITE BLOOD COUNT 23.7 10^3/ul (4.8-10.8)
[2017-08-18 05:58] LABS: POSITIVE DIFF @See below
[2017-08-18 06:48] LABS: ALBUMIN 2.8 g/dl (3.3-4.9); CALCIUM 8.2 mg/dl (8.4-10.2); CREATININE 0.59 mg/dl (0.44-1.00); POTASSIUM 4.5 mmol/L (3.5-5.1)
[2017-08-18 08:00] VITALS: BP 106/65; RESP 18
[2017-08-18] MEDS: FAMOTIDINE 20 MG TAB PO SCH (08:50)
[2017-08-18] MEDS: TAMOXIFEN 10 MG TAB PO SCH (08:53)
[2017-08-18 16:00] VITALS: BP 113/65; PULSE 56; RESP 20
--- NOTE | 2017-08-18 18:02 | PN ---
Date/Time of Note Date/Time of Note DATE: 08/18/17 TIME: 17:57 Assessment/Plan VTE Prophylaxis VTE Prophylaxis Intervention: SCD's Lines/Catheters IV [facility] Saline Lock Urinary Cath still in place: No Assessment/Plan Assessment/Plan 1. Breast cancer with metastases to the lung, liver, brain - s/p craniectomy with mesh placement on 08/11/17. Doing well and continues to mentate well - Neurosurgery on board and recommendations appreciated. - Oncology on board and consultation appreciated. Dr. Doan is considering initiating systemic therapy with lapatinib with Xeloda post-completion of treatment. - Rad Oncology on board as well and consultation appreciated. Plans for whole brain irradiation over 3 weeks, 2 doses of 3750 cGy. 2. 6 mm kxvig-xa-myhi midline herniation and effacement of the right lateral ventricle - mental status remains stable - s/p craniectomy - Decadron for cerebral edema 3. Large right-sided pleural effusion - Pleurex cath in place, draining well 4. Anemia of chronic disease - stable and continues to trend up 5. Shortness of breath - resolved 6. Disposition - Continue monitoring and awaiting clearance from specialists. Will arrange for HH and PT upon discharge Subjective 24 Hr Interval Summary Free Text/Dictation Patient doing well and no new complaints. Spoke with Rad Onc and Dr. Mendoza and agreeable to plans. Requesting HH and PT upon discharge. No acute overnight events. Exam/Review of Systems Vital Signs Vitals Vital Signs Date Time Temp Pulse Resp B/P Pulse Ox O2 Delivery O2 Flow Rate FiO2 08/18/17 16:00 56 20 113/65 95 Room Air 08/18/17 08:00 97.6 08/15/17 00:08 2.0 08/15/17 00:03 21 Intake and Output 08/17/17 08/17/17 08/18/17 15:00 23:00 07:00 Intake Total 1500 ml 480 ml Output Total 900 ml Balance 600 ml 480 ml Exam General: NAD, awake and alert. pleasant Head: R side chucho in place- no discharge or drainage Neck: Supple Respiratory: diminished diffusely. no wheezes or rhonchi appreciated Cardiovascular: regular rate, no obvious murmurs Gastrointestinal: non-tender to palpation, bowel sounds heard. Skin: No new skin lesions, R chest pleurex catheter Results Result Diagram: 08/18/17 0442 08/18/17 0445 Results 24 hrs Laboratory Tests Test 08/18/17 04:42 08/18/17 04:45 White Blood Count 23.7 H Red Blood Count 4.07 L Hemoglobin 9.2 L Hematocrit 29.3 L Mean Corpuscular Volume 72.0 L Mean Corpuscular Hemoglobin 22.6 L Mean Corpuscular Hemoglobin Concent 31.4 L Red Cell Distribution Width 21.0 H Platelet Count 261 Mean Platelet Volume 9.6 Neutrophils % 73.0 Lymphocytes % 13.4 L Monocytes % 7.2 Eosinophils % 0.0 Basophils % 0.1 Nucleated Red Blood Cells % 0.0 Neutrophils # 17.3 H Lymphocytes # 3.2 H Monocytes # 1.7 H Eosinophils # 0.0 Basophils # 0.0 Nucleated Red Blood Cells # 0.0 Sodium Level 132 L Potassium Level 4.5 Chloride Level 102 Carbon Dioxide Level 26 Anion Gap 9 Blood Urea Nitrogen 24 H Creatinine 0.59 Glucose Level 125 Calcium Level 8.2 L Phosphorus Level 4.0 Magnesium Level 2.0 Albumin 2.8 L Medications Medications Current Medications Ondansetron HCl (Zofran Inj) 4 mg Q6H PRN IV NAUSEA AND/OR VOMITING Last administered on 08/14/17 01:27; Admin Dose 4 MG; Start 08/08/17 at 22:30 Acetaminophen (Tylenol Liquid) 650 mg Q6H PRN PO PAIN LEVEL 1-3 OR FEVER Last administered on 08/11/17 00:32; Admin Dose 650 MG; Start 08/08/17 at 22:30 Morphine Sulfate (morphine) 2 mg Q4H PRN IV PAIN LEVEL 7-10; Start 08/08/17 at 22:30 Dexamethasone (Decadron) 4 mg Q6 IV Last administered on 08/18/17 17:43; Admin Dose 4 MG; Start 08/09/17 at 00:00 Famotidine (Pepcid) 20 mg DAILY PO Last administered on 08/18/17 08:50; Admin Dose 20 MG; Start 08/17/17 at 09:00 Tramadol HCl (Ultram) 50 mg Q6H PRN PO PAIN; Start 08/16/17 at 23:00 Docusate Sodium (Colace) 100 mg BID PRN PO CONSTIPATION; Start 08/16/17 at 23: 00 Bisacodyl (Dulcolax) 5 mg DAILY PRN PO CONSTIPATION; Start 08/16/17 at 23:00 Tamoxifen Citrate (Nolvadex) 20 mg DAILY PO Last administered on 08/18/17t 08: 53; Admin Dose 20 MG; Start 08/18/17 at 09:00 ZEUS TABOR MD Aug 18, 2017 18:02
[2017-08-18 19:20] VITALS: BP 124/67; RESP 18
--- NOTE | 2017-08-18 21:20 | CONS ---
Date/Time of Note Date/Time of Note DATE: 08/18/17 TIME: 21:14 Assessment/Plan Assessment/Plan Chief Complaint/Hosp Course 46 yo with metastatic breast cancer, who was off therapy for at least 5 month, who presents with recurrent pleural effusion and large brain metastasis. #Her2+/ER+/DE+ metastatic breast ca -pt is non compliant but when she receives therapy, she is quite responsive to therapy -therefore at this time, although she has terminal disease, there are still many more treatment options which she could benefit from -given her Brain mets, I would consider a combination of Xeloda and Lapatinib which can penetrate the blood brain barrier -at this time will restart Tamoxifen -once patient has completed her post op radiation will initiate chemotherapy #Brain Mets -appreciate neurosurgery recs - now s/p right frontal craniectomy, resection of tumor, microscope, image guidance, titanium mesh cranioplast -appreciate rad onc recs: they have recommended whole brain irradiation over 3 weeks, 2 doses of 3750 cGy. will consider Namenda with radiation. will try to get Lapatinib in house to start lizzy. will plan to start Xeloda after completion of radiation -continue Decadron at4mg IV q8 #Pleural Effusion -s/p pleurex catheter placement -will check cytology and re-evaluate her prognostic markers A total 40 min was spent face to face in speaking with the patient of which > 50 % was spent in counseling and coordination fo care and details question and answer session Problems: Consultation Date/Type/Reason Admit Date/Time Aug 08, 2017 at 19:54 Initial Consult Date 08/09/17 Type of Consultation: Oncology Reason for Consultation metastatic breast cancer Referring Provider: JUAN MTOLEY 24 HR Interval Summary Free Text/Dictation recovering well from surgery Exam/Review of Systems Vital Signs Vitals Vital Signs Date Time Temp Pulse Resp B/P Pulse Ox O2 Delivery O2 Flow Rate FiO2 08/18/17 16:00 56 20 113/65 95 Room Air 08/18/17 08:00 97.6 08/15/17 00:08 2.0 08/15/17 00:03 21 Intake and Output 08/17/17 08/17/17 08/18/17 15:00 23:00 07:00 Intake Total 1500 ml 480 ml Output Total 900 ml Balance 600 ml 480 ml Exam Constitutional: alert, oriented Psych: no complaints Head: normocephalic, other (s/p craniotomy) Eyes: nl conjunctiva ENMT: nl external ears & nose Neck: non-tender, supple Respiratory: clear to auscultation Cardiovascular: regular rate and rhythm Gastrointestinal: soft Musculoskeletal: nl extremities to inspection Results Result Diagram: 08/18/17 0442 08/18/17 0445 Results 24 hrs Laboratory Tests Test 08/18/17 04:42 08/18/17 04:45 White Blood Count 23.7 H Red Blood Count 4.07 L Hemoglobin 9.2 L Hematocrit 29.3 L Mean Corpuscular Volume 72.0 L Mean Corpuscular Hemoglobin 22.6 L Mean Corpuscular Hemoglobin Concent 31.4 L Red Cell Distribution Width 21.0 H Platelet Count 261 Mean Platelet Volume 9.6 Neutrophils % 73.0 Lymphocytes % 13.4 L Monocytes % 7.2 Eosinophils % 0.0 Basophils % 0.1 Nucleated Red Blood Cells % 0.0 Neutrophils # 17.3 H Lymphocytes # 3.2 H Monocytes # 1.7 H Eosinophils # 0.0 Basophils # 0.0 Nucleated Red Blood Cells # 0.0 Sodium Level 132 L Potassium Level 4.5 Chloride Level 102 Carbon Dioxide Level 26 Anion Gap 9 Blood Urea Nitrogen 24 H Creatinine 0.59 Glucose Level 125 Calcium Level 8.2 L Phosphorus Level 4.0 Magnesium Level 2.0 Albumin 2.8 L Medications Medications Current Medications Ondansetron HCl (Zofran Inj) 4 mg Q6H PRN IV NAUSEA AND/OR VOMITING Last administered on 08/14/17 01:27; Admin Dose 4 MG; Start 08/08/17 at 22:30 Acetaminophen (Tylenol Liquid) 650 mg Q6H PRN PO PAIN LEVEL 1-3 OR FEVER Last administered on 08/11/17 00:32; Admin Dose 650 MG; Start 08/08/17 at 22:30 Morphine Sulfate (morphine) 2 mg Q4H PRN IV PAIN LEVEL 7-10; Start 08/08/17 at 22:30 Dexamethasone (Decadron) 4 mg Q6 IV Last administered on 08/18/17 17:43; Admin Dose 4 MG; Start 08/09/17 at 00:00 Famotidine (Pepcid) 20 mg DAILY PO Last administered on 08/18/17 08:50; Admin Dose 20 MG; Start 08/17/17 at 09:00 Tramadol HCl (Ultram) 50 mg Q6H PRN PO PAIN; Start 08/16/17 at 23:00 Docusate Sodium (Colace) 100 mg BID PRN PO CONSTIPATION; Start 08/16/17 at 23: 00 Bisacodyl (Dulcolax) 5 mg DAILY PRN PO CONSTIPATION; Start 08/16/17 at 23:00 Tamoxifen Citrate (Nolvadex) 20 mg DAILY PO Last administered on 08/18/17t 08: 53; Admin Dose 20 MG; Start 08/18/17 at 09:00 ANTWON DYE M.D. Aug 18, 2017 21:20
[2017-08-19 02:00] VITALS: BP 117/65; RESP 18
[2017-08-19 05:31] LABS: ABNORMAL IP MESSAGE 1; BASOPHIL # 0.1 10^3/ul (0.0-0.1); BASOPHILS % 0.2 % (0.0-2.0); HEMATOCRIT 29.9 % (37.0-47.0); HEMOGLOBIN 9.4 g/dl (12.0-16.0); LYMPHOCYTES # 3.5 10^3/ul (0.8-2.9); LYMPHOCYTES % 13.4 % (15.0-51.0); MEAN CORPUSCULAR HEMOGLOBIN 22.8 pg (29.0-33.0); MEAN CORPUSCULAR HGB CONC 31.4 g/dl (32.0-37.0); MEAN CORPUSCULAR VOLUME 72.6 fl (82.0-101.0); MEAN PLATELET VOLUME 9.5 fl (7.4-10.4); MONOCYTE # 1.9 10^3/ul (0.3-0.9); MONOCYTES % 7.2 % (0.0-11.0); NEUTROPHILS % 73.3 % (39.0-77.0); PLATELET COUNT 267 10^3/UL (140-415); RED BLOOD COUNT 4.12 10^6/ul (4.20-5.40)
[2017-08-19 05:34] LABS: POSITIVE DIFF @See below
[2017-08-19] MEDS: DEXAMETHASONE 4 MG/ML 1 ML INJ IV SCH ×3 (05:42→21:10)
[2017-08-19 05:57] LABS: ALBUMIN 2.8 g/dl (3.3-4.9); CALCIUM 8.2 mg/dl (8.4-10.2); CREATININE 0.57 mg/dl (0.44-1.00); PHOSPHORUS 3.4 mg/dl (2.5-4.9); POTASSIUM 4.3 mmol/L (3.5-5.1)
[2017-08-19 08:17] VITALS: BP 123/72; RESP 20
[2017-08-19] MEDS: FAMOTIDINE 20 MG TAB PO SCH (09:00)
[2017-08-19] MEDS: TAMOXIFEN 10 MG TAB PO SCH (09:06)
--- NOTE | 2017-08-19 10:26 | PN ---
Date/Time of Note Date/Time of Note DATE: 08/19/17 TIME: 10:26 Assessment/Plan VTE Prophylaxis VTE Prophylaxis Intervention: contraindicated, SCD's Lines/Catheters IV [facility] Saline Lock Urinary Cath still in place: No Assessment/Plan Assessment/Plan 1. Breast cancer with metastases to the lung, liver, brain - s/p craniectomy with mesh placement on 08/11/17. Doing well and continues to mentate well - Neurosurgery on board and recommendations appreciated. - Oncology on board and consultation appreciated. Dr. Doan is considering initiating systemic therapy with lapatinib with Xeloda post-completion of treatment. Started on Tamoxifen yesterday and feeling sleepy but no other side effects noted - Rad Oncology on board as well and consultation appreciated. Plans for whole brain irradiation over 3 weeks, 2 doses of 3750 cGy. 2. Hyperglycemia - Due to decadron - Will change to carb consistent diet - ISS and accuchecks 3. 6 mm [id number] midline herniation and effacement of the right lateral ventricle - mental status remains stable - s/p craniectomy - Decadron for cerebral edema 4. Large right-sided pleural effusion - Pleurex cath in place, draining well 5. Anemia of chronic disease - stable and continues to trend up 6. Shortness of breath - resolved 7. Disposition - Continue monitoring and awaiting clearance from specialists. Will arrange for HH and PT upon discharge Subjective 24 Hr Interval Summary Free Text/Dictation Patient doing well and states feeling sleepy after starting on Tamoxifen but denies any other complaints. No acute overnight events. Exam/Review of Systems Vital Signs Vitals Vital Signs Date Time Temp Pulse Resp B/P Pulse Ox O2 Delivery O2 Flow Rate FiO2 08/19/17 08:17 98.8 54 20 123/72 99 08/18/17 16:00 Room Air Intake and Output 08/18/17 08/18/17 08/19/17 15:00 23:00 07:00 Intake Total 1300 ml 950 ml Output Total 450 ml 850 ml Balance 850 ml 100 ml Exam General: NAD, awake and alert. pleasant Head: R side chucho in place- no discharge or drainage Neck: Supple Respiratory: diminished diffusely. no wheezes or rhonchi appreciated Cardiovascular: regular rate, no obvious murmurs Gastrointestinal: non-tender to palpation, bowel sounds heard. Skin: No new skin lesions, R chest pleurex catheter Results Result Diagram: 08/19/17 0440 08/19/17 0439 Results 24 hrs Laboratory Tests Test 08/19/17 04:39 08/19/17 04:40 Sodium Level 132 L Potassium Level 4.3 Chloride Level 101 Carbon Dioxide Level 24 Anion Gap 11 Blood Urea Nitrogen 23 H Creatinine 0.57 Glucose Level 130 Calcium Level 8.2 L Phosphorus Level 3.4 Magnesium Level 2.0 Albumin 2.8 L White Blood Count 26.0 H Red Blood Count 4.12 L Hemoglobin 9.4 L Hematocrit 29.9 L Mean Corpuscular Volume 72.6 L Mean Corpuscular Hemoglobin 22.8 L Mean Corpuscular Hemoglobin Concent 31.4 L Red Cell Distribution Width 21.0 H Platelet Count 267 Mean Platelet Volume 9.5 Neutrophils % 73.3 Lymphocytes % 13.4 L Monocytes % 7.2 Eosinophils % 0.0 Basophils % 0.2 Nucleated Red Blood Cells % 0.0 Neutrophils # 19.0 H Lymphocytes # 3.5 H Monocytes # 1.9 H Eosinophils # 0.0 Basophils # 0.1 Nucleated Red Blood Cells # 0.0 Medications Medications Current Medications Ondansetron HCl (Zofran Inj) 4 mg Q6H PRN IV NAUSEA AND/OR VOMITING Last administered on 08/14/17 01:27; Admin Dose 4 MG; Start 08/08/17 at 22:30 Acetaminophen (Tylenol Liquid) 650 mg Q6H PRN PO PAIN LEVEL 1-3 OR FEVER Last administered on 08/11/17 00:32; Admin Dose 650 MG; Start 08/08/17 at 22:30 Morphine Sulfate (morphine) 2 mg Q4H PRN IV PAIN LEVEL 7-10; Start 08/08/17 at 22:30 Famotidine (Pepcid) 20 mg DAILY PO Last administered on 08/19/17 09:00; Admin Dose 20 MG; Start 08/17/17 at 09:00 Tramadol HCl (Ultram) 50 mg Q6H PRN PO PAIN; Start 08/16/17 at 23:00 Docusate Sodium (Colace) 100 mg BID PRN PO CONSTIPATION; Start 08/16/17 at 23: 00 Bisacodyl (Dulcolax) 5 mg DAILY PRN PO CONSTIPATION; Start 08/16/17 at 23:00 Tamoxifen Citrate (Nolvadex) 20 mg DAILY PO Last administered on 08/19/17 09: 06; Admin Dose 20 MG; Start 08/18/17 at 09:00 Dexamethasone (Decadron) 4 mg Q8 IV Last administered on 08/19/17 05:42; Admin Dose 4 MG; Start 08/18/17 at 22:00 ZEUS TABOR MD Aug 19, 2017 10:26
[2017-08-19] MEDS ORDERED: DEXTROSE 50% 50 ML SYRINGE IV PRN ×2 (10:30)
[2017-08-19] MEDS ORDERED: GLUCAGON 1 MG INJ IM PRN (10:30)
[2017-08-19] MEDS ORDERED: GLUCOSE GEL 15 GRAM TUBE PO PRN ×2 (10:30)
[2017-08-19] MEDS ORDERED: GLUCOSE GEL 15 GRAM TUBE BUCCAL PRN (10:30)
[2017-08-19] MEDS: INSULIN ASPART [NOVOLOG] 3 ML PEN SC SCH ×3 (11:40→21:12)
[2017-08-19 15:19] VITALS: BP 109/63; PULSE 67; RESP 20
[2017-08-19 19:39] VITALS: BP 117/60; RESP 18
[2017-08-20 01:33] VITALS: BP 108/57; RESP 18
[2017-08-20 05:22] LABS: ABNORMAL IP MESSAGE 1; BASOPHILS % 0.1 % (0.0-2.0); HEMOGLOBIN 9.3 g/dl (12.0-16.0); LYMPHOCYTES # 3.4 10^3/ul (0.8-2.9); LYMPHOCYTES % 12.7 % (15.0-51.0); MEAN CORPUSCULAR HEMOGLOBIN 22.4 pg (29.0-33.0); MEAN CORPUSCULAR VOLUME 72.3 fl (82.0-101.0); MEAN PLATELET VOLUME 9.3 fl (7.4-10.4); MONOCYTE # 2.1 10^3/ul (0.3-0.9); MONOCYTES % 7.9 % (0.0-11.0); NEUTROPHIL # 20.2 10^3/ul (1.6-7.5); NEUTROPHILS % 74.7 % (39.0-77.0); PLATELET COUNT 229 10^3/UL (140-415); RED BLOOD COUNT 4.15 10^6/ul (4.20-5.40); RED CELL DISTRIBUTION WIDTH 21.9 % (11.5-14.5)
[2017-08-20] MEDS: DEXAMETHASONE 4 MG/ML 1 ML INJ IV SCH ×3 (05:31→21:25)
[2017-08-20 05:49] LABS: ALBUMIN 2.8 g/dl (3.3-4.9); CREATININE 0.58 mg/dl (0.44-1.00); MAGNESIUM 1.9 mg/dl (1.7-2.5); PHOSPHORUS 3.7 mg/dl (2.5-4.9); POTASSIUM 4.5 mmol/L (3.5-5.1)
[2017-08-20 06:06] LABS: POSITIVE DIFF @See below
[2017-08-20 07:41] VITALS: BP 117/73; RESP 20
--- NOTE | 2017-08-20 08:08 | PN ---
Date/Time of Note Date/Time of Note DATE: 08/20/17 TIME: 08:07 Assessment/Plan VTE Prophylaxis VTE Prophylaxis Intervention: contraindicated, SCD's Lines/Catheters IV [facility] Saline Lock Urinary Cath still in place: No Assessment/Plan Assessment/Plan 1. Breast cancer with metastases to the lung, liver, brain - s/p craniectomy with mesh placement on 08/11/17. Doing well and no issues with confusion - Neurosurgery on board and recommendations appreciated. - Oncology on board and consultation appreciated. Dr. Mendoza is considering initiating systemic therapy with lapatinib with Xeloda post-completion of treatment. Started on Tamoxifen yesterday and feeling sleepy but no other side effects noted - Rad Oncology on board as well and consultation appreciated. Plans for whole brain irradiation over 3 weeks, 2 doses of 3750 cGy. 2. Hyperglycemia - Due to decadron - Will change to carb consistent diet - ISS and accuchecks 3. 6 mm [id number] midline herniation and effacement of the right lateral ventricle - mental status remains stable - s/p craniectomy - Decadron for cerebral edema 4. Large right-sided pleural effusion - Pleurex cath in place, draining well 5. Anemia of chronic disease - stable and continues to trend up 6. Shortness of breath - resolved 7. Disposition - Continue monitoring and awaiting clearance from specialists. Will arrange for HH and PT upon discharge Subjective 24 Hr Interval Summary Free Text/Dictation Patient doing well and states still feeling fatigued but no new complaints and no acute overnight events. Exam/Review of Systems Vital Signs Vitals Vital Signs Date Time Temp Pulse Resp B/P Pulse Ox O2 Delivery O2 Flow Rate FiO2 08/20/17 07:41 98.0 67 20 117/73 99 08/19/17 15:19 Room Air Intake and Output 08/19/17 08/19/17 08/20/17 15:00 23:00 07:00 Intake Total 1300 ml 950 ml Output Total 500 ml 900 ml Balance 800 ml 50 ml Exam General: NAD, awake and alert. pleasant Head: R side chucho in place- no discharge or drainage Neck: Supple Respiratory: diminished diffusely. no wheezes or rhonchi appreciated Cardiovascular: regular rate, no obvious murmurs Gastrointestinal: non-tender to palpation, bowel sounds heard. Skin: No new skin lesions, R chest pleurex catheter Results Result Diagram: 08/20/17 0423 08/20/17 0423 Results 24 hrs Laboratory Tests Test 08/19/17 12:32 08/19/17 17:40 08/19/17 21:08 08/20/17 01:42 Bedside Glucose 119 139 213 150 Test 08/20/17 04:23 White Blood Count 27.0 H Red Blood Count 4.15 L Hemoglobin 9.3 L Hematocrit 30.0 L Mean Corpuscular Volume 72.3 L Mean Corpuscular Hemoglobin 22.4 L Mean Corpuscular Hemoglobin Concent 31.0 L Red Cell Distribution Width 21.9 H Platelet Count 229 Mean Platelet Volume 9.3 Neutrophils % 74.7 Lymphocytes % 12.7 L Monocytes % 7.9 Eosinophils % 0.0 Basophils % 0.1 Nucleated Red Blood Cells % 0.0 Neutrophils # 20.2 H Lymphocytes # 3.4 H Monocytes # 2.1 H Eosinophils # 0.0 Basophils # 0.0 Nucleated Red Blood Cells # 0.0 Sodium Level 131 L Potassium Level 4.5 Chloride Level 102 Carbon Dioxide Level 25 Anion Gap 9 Blood Urea Nitrogen 26 H Creatinine 0.58 Glucose Level 128 Calcium Level 8.0 L Phosphorus Level 3.7 Magnesium Level 1.9 Albumin 2.8 L Medications Medications Current Medications Ondansetron HCl (Zofran Inj) 4 mg Q6H PRN IV NAUSEA AND/OR VOMITING Last administered on 08/14/17 01:27; Admin Dose 4 MG; Start 08/08/17 at 22:30 Acetaminophen (Tylenol Liquid) 650 mg Q6H PRN PO PAIN LEVEL 1-3 OR FEVER Last administered on 08/11/17 00:32; Admin Dose 650 MG; Start 08/08/17 at 22:30 Morphine Sulfate (morphine) 2 mg Q4H PRN IV PAIN LEVEL 7-10; Start 08/08/17 at 22:30 Famotidine (Pepcid) 20 mg DAILY PO Last administered on 08/19/17 09:00; Admin Dose 20 MG; Start 08/17/17 at 09:00 Tramadol HCl (Ultram) 50 mg Q6H PRN PO PAIN; Start 08/16/17 at 23:00 Docusate Sodium (Colace) 100 mg BID PRN PO CONSTIPATION; Start 08/16/17 at 23: 00 Bisacodyl (Dulcolax) 5 mg DAILY PRN PO CONSTIPATION; Start 08/16/17 at 23:00 Tamoxifen Citrate (Nolvadex) 20 mg DAILY PO Last administered on 08/19/17 09: 06; Admin Dose 20 MG; Start 08/18/17 at 09:00 Dexamethasone (Decadron) 4 mg Q8 IV Last administered on 08/20/17 05:31; Admin Dose 4 MG; Start 08/18/17 at 22:00 Miscellaneous Information 1 ea NOTE XX ; Start 08/19/17 at 10:30 Glucose (Glutose) 15 gm Q15M PRN PO DECREASED GLUCOSE; Start 08/19/17 at 10:30 Glucose (Glutose) 22.5 gm Q15M PRN PO DECREASED GLUCOSE; Start 08/19/17 at 10: 30 Dextrose (D50w Syringe) 25 ml Q15M PRN IV DECREASED GLUCOSE; Start 08/19/17 at 10:30 Dextrose (D50w Syringe) 50 ml Q15M PRN IV DECREASED GLUCOSE; Start 08/19/17 at 10:30 Glucagon (Glucagen) 1 mg Q15M PRN IM DECREASED GLUCOSE; Start 08/19/17 at 10:30 Glucose (Glutose) 15 gm Q15M PRN BUCCAL DECREASED GLUCOSE; Start 08/19/17 at 10 :30 ZEUS TABOR MD Aug 20, 2017 08:07
[2017-08-20] MEDS: FAMOTIDINE 20 MG TAB PO SCH (08:55)
[2017-08-20] MEDS: INSULIN ASPART [NOVOLOG] 3 ML PEN SC SCH ×4 (09:03→21:00)
[2017-08-20] MEDS: TAMOXIFEN 10 MG TAB PO SCH (09:04)
[2017-08-20 14:01] VITALS: BP 121/68; RESP 20
[2017-08-20 19:49] VITALS: BP 124/75; RESP 16
[2017-08-21 02:04] VITALS: BP 112/63; RESP 16
[2017-08-21 05:09] LABS: ABNORMAL IP MESSAGE 1; BASOPHIL # 0.1 10^3/ul (0.0-0.1); BASOPHILS % 0.2 % (0.0-2.0); HEMATOCRIT 29.4 % (37.0-47.0); HEMOGLOBIN 9.3 g/dl (12.0-16.0); LYMPHOCYTES % 11.5 % (15.0-51.0); MEAN CORPUSCULAR HEMOGLOBIN 22.9 pg (29.0-33.0); MEAN CORPUSCULAR HGB CONC 31.6 g/dl (32.0-37.0); MEAN CORPUSCULAR VOLUME 72.2 fl (82.0-101.0); MEAN PLATELET VOLUME 9.3 fl (7.4-10.4); MONOCYTE # 1.8 10^3/ul (0.3-0.9); MONOCYTES % 6.9 % (0.0-11.0); NEUTROPHIL # 20.1 10^3/ul (1.6-7.5); NEUTROPHILS % 77.2 % (39.0-77.0); PLATELET COUNT 229 10^3/UL (140-415); RED BLOOD COUNT 4.07 10^6/ul (4.20-5.40); RED CELL DISTRIBUTION WIDTH 21.4 % (11.5-14.5); WHITE BLOOD COUNT 26.1 10^3/ul (4.8-10.8)
[2017-08-21 05:19] LABS: ALBUMIN 2.6 g/dl (3.3-4.9); CALCIUM 8.3 mg/dl (8.4-10.2); CREATININE 0.57 mg/dl (0.44-1.00); MAGNESIUM 1.8 mg/dl (1.7-2.5); PHOSPHORUS 4.1 mg/dl (2.5-4.9); POTASSIUM 4.4 mmol/L (3.5-5.1)
[2017-08-21 05:29] LABS: POSITIVE DIFF @See below
[2017-08-21] MEDS: DEXAMETHASONE 4 MG/ML 1 ML INJ IV SCH ×3 (05:42→21:32)
[2017-08-21 08:17] VITALS: BP 106/62; RESP 18
[2017-08-21] MEDS: INSULIN ASPART [NOVOLOG] 3 ML PEN SC SCH ×4 (08:50→21:33)
[2017-08-21] MEDS: FAMOTIDINE 20 MG TAB PO SCH (10:23)
[2017-08-21] MEDS: TAMOXIFEN 10 MG TAB PO SCH (10:27)
--- NOTE | 2017-08-21 11:49 | PN ---
Date/Time of Note Date/Time of Note DATE: 08/21/17 TIME: 11:47 Assessment/Plan VTE Prophylaxis VTE Prophylaxis Intervention: ambulation Lines/Catheters IV [facility]ter Type (from [facility] Saline Lock Urinary Cath still in place: No Assessment/Plan Chief Complaint/Hosp Course 1. Breast cancer with metastases to the lung, liver, brain - s/p craniectomy with mesh placement on 08/11/17. Doing well and no issues with confusion - Neurosurgery on board and recommendations appreciated. - Oncology on board and consultation appreciated. Dr. Mendoza is considering initiating systemic therapy with lapatinib with Xeloda post-completion of treatment. Started on Tamoxifen - Rad Oncology on board as well and consultation appreciated. Plans for whole brain irradiation over 3 weeks, 2 doses of 3750 cGy. 2. Hyperglycemia - Due to decadron - Will change to carb consistent diet - ISS and accuchecks 3. 6 mm [id number] midline herniation and effacement of the right lateral ventricle - mental status remains stable - s/p craniectomy - Decadron for cerebral edema 4. Large right-sided pleural effusion - Pleurex cath in place, draining well 5. Anemia of chronic disease - stable and continues to trend up 6. Shortness of breath - resolved 7. Disposition - planning for in-house radiation per neurosurgery, pending timing. Problems: Subjective 24 Hr Interval Summary Free Text/Dictation no acute complaints Exam/Review of Systems Vital Signs Vitals Vital Signs Date Time Temp Pulse Resp B/P Pulse Ox O2 Delivery O2 Flow Rate FiO2 08/21/17 08:17 98.2 67 18 106/62 99 08/19/17 15:19 Room Air Intake and Output 08/20/17 08/20/17 08/21/17 15:00 23:00 07:00 Intake Total 900 ml 950 ml Output Total 1700 ml 900 ml Balance -800 ml 50 ml Exam General: NAD, awake and alert. pleasant Head: R side chucho in place- no discharge or drainage Neck: Supple Respiratory: diminished diffusely. no wheezes or rhonchi appreciated Cardiovascular: regular rate, no obvious murmurs Gastrointestinal: non-tender to palpation, bowel sounds heard. Skin: No new skin lesions, R chest pleurex catheter Results Result Diagram: 08/21/17 0418 08/21/17 0418 Results 24 hrs Laboratory Tests Test 08/20/17 12:23 08/20/17 17:58 08/20/17 21:25 08/21/17 04:18 Bedside Glucose 341 H 124 123 White Blood Count 26.1 H Red Blood Count 4.07 L Hemoglobin 9.3 L Hematocrit 29.4 L Mean Corpuscular Volume 72.2 L Mean Corpuscular Hemoglobin 22.9 L Mean Corpuscular Hemoglobin Concent 31.6 L Red Cell Distribution Width 21.4 H Platelet Count 229 Mean Platelet Volume 9.3 Neutrophils % 77.2 H Lymphocytes % 11.5 L Monocytes % 6.9 Eosinophils % 0.0 Basophils % 0.2 Nucleated Red Blood Cells % 0.0 Neutrophils # 20.1 H Lymphocytes # 3.0 H Monocytes # 1.8 H Eosinophils # 0.0 Basophils # 0.1 Nucleated Red Blood Cells # 0.0 Sodium Level 130 L Potassium Level 4.4 Chloride Level 101 Carbon Dioxide Level 24 Anion Gap 9 Blood Urea Nitrogen 26 H Creatinine 0.57 Glucose Level 113 Calcium Level 8.3 L Phosphorus Level 4.1 Magnesium Level 1.8 Albumin 2.6 L Test 08/21/17 08:39 Bedside Glucose 116 Medications Medications Current Medications Ondansetron HCl (Zofran Inj) 4 mg Q6H PRN IV NAUSEA AND/OR VOMITING Last administered on 08/14/17 01:27; Admin Dose 4 MG; Start 08/08/17 at 22:30 Acetaminophen (Tylenol Liquid) 650 mg Q6H PRN PO PAIN LEVEL 1-3 OR FEVER Last administered on 08/11/17 00:32; Admin Dose 650 MG; Start 08/08/17 at 22:30 Morphine Sulfate (morphine) 2 mg Q4H PRN IV PAIN LEVEL 7-10; Start 08/08/17 at 22:30 Famotidine (Pepcid) 20 mg DAILY PO Last administered on 08/21/17 10:23; Admin Dose 20 MG; Start 08/17/17 at 09:00 Tramadol HCl (Ultram) 50 mg Q6H PRN PO PAIN; Start 08/16/17 at 23:00 Docusate Sodium (Colace) 100 mg BID PRN PO CONSTIPATION; Start 08/16/17 at 23: 00 Bisacodyl (Dulcolax) 5 mg DAILY PRN PO CONSTIPATION; Start 08/16/17 at 23:00 Tamoxifen Citrate (Nolvadex) 20 mg DAILY PO Last administered on 08/21/17 10: 27; Admin Dose 20 MG; Start 08/18/17 at 09:00 Dexamethasone (Decadron) 4 mg Q8 IV Last administered on 08/21/17 05:42; Admin Dose 4 MG; Start 08/18/17 at 22:00 Miscellaneous Information 1 ea NOTE XX ; Start 08/19/17 at 10:30 Glucose (Glutose) 15 gm Q15M PRN PO DECREASED GLUCOSE; Start 08/19/17 at 10:30 Glucose (Glutose) 22.5 gm Q15M PRN PO DECREASED GLUCOSE; Start 08/19/17 at 10: 30 Dextrose (D50w Syringe) 25 ml Q15M PRN IV DECREASED GLUCOSE; Start 08/19/17 at 10:30 Dextrose (D50w Syringe) 50 ml Q15M PRN IV DECREASED GLUCOSE; Start 08/19/17 at 10:30 Glucagon (Glucagen) 1 mg Q15M PRN IM DECREASED GLUCOSE; Start 08/19/17 at 10:30 Glucose (Glutose) 15 gm Q15M PRN BUCCAL DECREASED GLUCOSE; Start 08/19/17 at 10 :30 JUAN MOTLEY Aug 21, 2017 11:49
[2017-08-21 13:50] VITALS: BP 120/74; PULSE 78; RESP 18
[2017-08-21 14:03] VITALS: BP 105/51; PULSE 73; RESP 18
--- NOTE | 2017-08-21 14:59 | CONS ---
Date/Time of Note Date/Time of Note DATE: 08/21/17 TIME: 14:57 Assessment/Plan Assessment/Plan Additional Assessment/Plan Assessment and recommendations; 1. Patient admitted with recurrent right pleural effusion due to metastatic breast cancer. Status post Pleurx catheter placement. 2. Brain tumor status post resection. Continue current supportive care. Further recommendations per oncology. Consultation Date/Type/Reason Admit Date/Time Aug 08, 2017 at 19:54 Initial Consult Date 08/09/17 Type of Consultation: Pulmonary Referring Provider: JUAN MOTLEY 24 HR Interval Summary Free Text/Dictation Patient's condition is stable. Remains completely awake and alert. General exam; middle-aged woman, currently in no distress. Exam/Review of Systems Vital Signs Vitals Vital Signs Date Time Temp Pulse Resp B/P Pulse Ox O2 Delivery O2 Flow Rate FiO2 08/21/17 14:03 73 18 105/51 96 Room Air 08/21/17 08:17 98.2 Intake and Output 08/20/17 08/20/17 08/21/17 15:00 23:00 07:00 Intake Total 900 ml 950 ml Output Total 1700 ml 900 ml Balance -800 ml 50 ml Exam HEENT exam; supple neck, no JVD. No lymphadenopathy. Midline trachea. No thyromegaly. Patient has fair dentition. Pupils are midsize and reactive to light. There is a well-healed parietal craniotomy scar present with chucho applied. Chest exam; diminished breath on lung bases bilaterally. Right Pleurx catheter in place. S1-S2 audible, no murmurs. Regular rhythm. Abdomen exam; soft, nontender. No organomegaly. Bowel sounds audible. Extremity exam; no peripheral edema. [employer] exam; no focal deficit. Results Result Diagram: 08/21/17 0418 08/21/17 0418 Results 24 hrs Laboratory Tests Test 08/20/17 17:58 08/20/17 21:25 08/21/17 04:18 08/21/17 08:39 Bedside Glucose 124 123 116 White Blood Count 26.1 H Red Blood Count 4.07 L Hemoglobin 9.3 L Hematocrit 29.4 L Mean Corpuscular Volume 72.2 L Mean Corpuscular Hemoglobin 22.9 L Mean Corpuscular Hemoglobin Concent 31.6 L Red Cell Distribution Width 21.4 H Platelet Count 229 Mean Platelet Volume 9.3 Neutrophils % 77.2 H Lymphocytes % 11.5 L Monocytes % 6.9 Eosinophils % 0.0 Basophils % 0.2 Nucleated Red Blood Cells % 0.0 Neutrophils # 20.1 H Lymphocytes # 3.0 H Monocytes # 1.8 H Eosinophils # 0.0 Basophils # 0.1 Nucleated Red Blood Cells # 0.0 Sodium Level 130 L Potassium Level 4.4 Chloride Level 101 Carbon Dioxide Level 24 Anion Gap 9 Blood Urea Nitrogen 26 H Creatinine 0.57 Glucose Level 113 Calcium Level 8.3 L Phosphorus Level 4.1 Magnesium Level 1.8 Albumin 2.6 L Test 08/21/17 12:28 Bedside Glucose 134 Medications Medications Current Medications Ondansetron HCl (Zofran Inj) 4 mg Q6H PRN IV NAUSEA AND/OR VOMITING Last administered on 08/14/17 01:27; Admin Dose 4 MG; Start 08/08/17 at 22:30 Acetaminophen (Tylenol Liquid) 650 mg Q6H PRN PO PAIN LEVEL 1-3 OR FEVER Last administered on 08/11/17 00:32; Admin Dose 650 MG; Start 08/08/17 at 22:30 Morphine Sulfate (morphine) 2 mg Q4H PRN IV PAIN LEVEL 7-10; Start 08/08/17 at 22:30 Famotidine (Pepcid) 20 mg DAILY PO Last administered on 08/21/17 10:23; Admin Dose 20 MG; Start 08/17/17 at 09:00 Tramadol HCl (Ultram) 50 mg Q6H PRN PO PAIN; Start 08/16/17 at 23:00 Docusate Sodium (Colace) 100 mg BID PRN PO CONSTIPATION; Start 08/16/17 at 23: 00 Bisacodyl (Dulcolax) 5 mg DAILY PRN PO CONSTIPATION; Start 08/16/17 at 23:00 Tamoxifen Citrate (Nolvadex) 20 mg DAILY PO Last administered on 08/21/17 10: 27; Admin Dose 20 MG; Start 08/18/17 at 09:00 Dexamethasone (Decadron) 4 mg Q8 IV Last administered on 08/21/17 13:14; Admin Dose 4 MG; Start 08/18/17 at 22:00 Miscellaneous Information 1 ea NOTE XX ; Start 08/19/17 at 10:30 Glucose (Glutose) 15 gm Q15M PRN PO DECREASED GLUCOSE; Start 08/19/17 at 10:30 Glucose (Glutose) 22.5 gm Q15M PRN PO DECREASED GLUCOSE; Start 08/19/17 at 10: 30 Dextrose (D50w Syringe) 25 ml Q15M PRN IV DECREASED GLUCOSE; Start 08/19/17 at 10:30 Dextrose (D50w Syringe) 50 ml Q15M PRN IV DECREASED GLUCOSE; Start 08/19/17 at 10:30 Glucagon (Glucagen) 1 mg Q15M PRN IM DECREASED GLUCOSE; Start 08/19/17 at 10:30 Glucose (Glutose) 15 gm Q15M PRN BUCCAL DECREASED GLUCOSE; Start 08/19/17 at 10 :30 WENDIE BROOKS Aug 21, 2017 14:59
[2017-08-21 19:21] VITALS: BP 117/65; RESP 18
--- NOTE | 2017-08-21 22:19 | CONS ---
Date/Time of Note Date/Time of Note DATE: 08/21/17 TIME: 22:16 Assessment/Plan Assessment/Plan Chief Complaint/Hosp Course 46 yo with metastatic breast cancer, who was off therapy for at least 5 month, who presents with recurrent pleural effusion and large brain metastasis. #Her2+/ER+/LA+ metastatic breast ca -pt is non compliant but when she receives therapy, she is quite responsive to therapy -therefore at this time, although she has terminal disease, there are still many more treatment options which she could benefit from -given her Brain mets, I would consider a combination of Xeloda and Lapatinib which can penetrate the blood brain barrier -at this time will restart Tamoxifen -once patient has completed her post op radiation will initiate chemotherapy #Brain Mets -appreciate neurosurgery recs - now s/p right frontal craniectomy, resection of tumor, microscope, image guidance, titanium mesh cranioplast. will follow up pathology -appreciate rad onc recs: they have recommended whole brain irradiation over 3 weeks, 2 doses of 3750 cGy. will consider Namenda with radiation. will plan to start Xeloda after completion of radiation -patient to get simulated prior to discharge -continue Decadron at4mg IV q8 #Pleural Effusion -s/p pleurex catheter placement -will check cytology and re-evaluate her prognostic markers A total 40 min was spent face to face in speaking with the patient of which > 50 % was spent in counseling and coordination fo care and details question and answer session Problems: Consultation Date/Type/Reason Admit Date/Time Aug 08, 2017 at 19:54 Initial Consult Date 08/09/17 Type of Consultation: Oncology Reason for Consultation metastatic breast cancer to brain Referring Provider: JUAN MOTLEY 24 HR Interval Summary Free Text/Dictation no acute overnight events. patient continues to improve. Exam/Review of Systems Vital Signs Vitals Vital Signs Date Time Temp Pulse Resp B/P Pulse Ox O2 Delivery O2 Flow Rate FiO2 08/21/17 19:21 97.9 71 18 117/65 98 08/21/17 14:03 Room Air Intake and Output 08/20/17 08/20/17 08/21/17 15:00 23:00 07:00 Intake Total 900 ml 950 ml Output Total 1700 ml 900 ml Balance -800 ml 50 ml Exam Constitutional: alert, oriented Psych: no complaints Head: normocephalic Eyes: nl conjunctiva ENMT: nl external ears & nose Neck: non-tender, supple Respiratory: clear to auscultation, normal air movement Cardiovascular: regular rate and rhythm Gastrointestinal: soft Musculoskeletal: nl extremities to inspection Results Result Diagram: 08/21/17 0418 08/21/17 0418 Results 24 hrs Laboratory Tests Test 08/21/17 04:18 08/21/17 08:39 08/21/17 12:28 08/21/17 17:57 White Blood Count 26.1 H Red Blood Count 4.07 L Hemoglobin 9.3 L Hematocrit 29.4 L Mean Corpuscular Volume 72.2 L Mean Corpuscular Hemoglobin 22.9 L Mean Corpuscular Hemoglobin Concent 31.6 L Red Cell Distribution Width 21.4 H Platelet Count 229 Mean Platelet Volume 9.3 Neutrophils % 77.2 H Lymphocytes % 11.5 L Monocytes % 6.9 Eosinophils % 0.0 Basophils % 0.2 Nucleated Red Blood Cells % 0.0 Neutrophils # 20.1 H Lymphocytes # 3.0 H Monocytes # 1.8 H Eosinophils # 0.0 Basophils # 0.1 Nucleated Red Blood Cells # 0.0 Sodium Level 130 L Potassium Level 4.4 Chloride Level 101 Carbon Dioxide Level 24 Anion Gap 9 Blood Urea Nitrogen 26 H Creatinine 0.57 Glucose Level 113 Calcium Level 8.3 L Phosphorus Level 4.1 Magnesium Level 1.8 Albumin 2.6 L Bedside Glucose 116 134 126 Test 08/21/17 21:30 Bedside Glucose 213 Medications Medications Current Medications Ondansetron HCl (Zofran Inj) 4 mg Q6H PRN IV NAUSEA AND/OR VOMITING Last administered on 08/14/17 01:27; Admin Dose 4 MG; Start 08/08/17 at 22:30 Acetaminophen (Tylenol Liquid) 650 mg Q6H PRN PO PAIN LEVEL 1-3 OR FEVER Last administered on 08/11/17 00:32; Admin Dose 650 MG; Start 08/08/17 at 22:30 Morphine Sulfate (morphine) 2 mg Q4H PRN IV PAIN LEVEL 7-10; Start 08/08/17 at 22:30 Famotidine (Pepcid) 20 mg DAILY PO Last administered on 08/21/17 10:23; Admin Dose 20 MG; Start 08/17/17 at 09:00 Tramadol HCl (Ultram) 50 mg Q6H PRN PO PAIN; Start 08/16/17 at 23:00 Docusate Sodium (Colace) 100 mg BID PRN PO CONSTIPATION; Start 08/16/17 at 23: 00 Bisacodyl (Dulcolax) 5 mg DAILY PRN PO CONSTIPATION; Start 08/16/17 at 23:00 Tamoxifen Citrate (Nolvadex) 20 mg DAILY PO Last administered on 08/21/17 10: 27; Admin Dose 20 MG; Start 08/18/17 at 09:00 Dexamethasone (Decadron) 4 mg Q8 IV Last administered on 08/21/17 21:32; Admin Dose 4 MG; Start 08/18/17 at 22:00 Miscellaneous Information 1 ea NOTE XX ; Start 08/19/17 at 10:30 Glucose (Glutose) 15 gm Q15M PRN PO DECREASED GLUCOSE; Start 08/19/17 at 10:30 Glucose (Glutose) 22.5 gm Q15M PRN PO DECREASED GLUCOSE; Start 08/19/17 at 10: 30 Dextrose (D50w Syringe) 25 ml Q15M PRN IV DECREASED GLUCOSE; Start 08/19/17 at 10:30 Dextrose (D50w Syringe) 50 ml Q15M PRN IV DECREASED GLUCOSE; Start 08/19/17 at 10:30 Glucagon (Glucagen) 1 mg Q15M PRN IM DECREASED GLUCOSE; Start 08/19/17 at 10:30 Glucose (Glutose) 15 gm Q15M PRN BUCCAL DECREASED GLUCOSE; Start 08/19/17 at 10 :30 ANTWON DYE M.D. Aug 21, 2017 22:19
--- NOTE | 2017-08-21 22:36 | OPR ---
DATE OF OPERATION: 08/11/2017 PREOPERATIVE DIAGNOSIS: Breast metastasis to right calvarium. POSTOPERATIVE DIAGNOSIS: Breast metastasis to right calvarium. OPERATION PERFORMED: 1. Right frontal craniectomy greater than 5 cm2. 2. Resection of brain metastasis. 3. Operative microscope. 4. Image guidance/neural navigation. 5. Titanium mesh cranioplasty approximately 10 x 8 cm. SURGEON: Michael Kay. HEEL STAINER: None. ANESTHESIA: General endotracheal anesthesia. ESTIMATED BLOOD LOSS: 100 mL. INDICATIONS: The patient is a 46-year-old female with a known history of breast cancer who presents with a large mass protruding underneath the scalp. CT and MRI demonstrate intracranial extension w ith significant cerebral edema and midline shift. Risks, benefits, and alternatives to craniectomy for resection of the involved bone and extracranial and intracranial mass were explained to the trev ent in detail. Informed consent was obtained, the patient was brought to the operating room. PROCEDURE IN DETAIL: The patient was positioned supine on the operating table after induction of an esthesia. Head was then placed in 3-pin fixation. Her topographic anatomy was then registered to [employer] image guidance system using a tracer algorithm. Once this was completed, it was confirmed for accuracy using anatomical landmarks. The location of the tumor including both the extra clinic al portion which could be directly palpated but also the intracranial portion was marked on the surf billy of the scalp with a felt tip marker. An appropriate curvilinear incision that was a question mar k style flap was marked on the surface of the scalp. The hair was clipped and the patient was prepp ed and draped in usual sterile fashion. The scalp was infiltrated with anesthetic and a 10 blade wa s used to incise the skin and reflect the scalp flap forward. The galea was secured to be intact ov er the extracranial portion of the tumor. Bur holes were placed along the inferior aspect of the ex posure at the squamosal portion of the temporal bone and a craniotome was used to circumscribe the t umor. Because the tumor extended both intracranially, extradurally and extracranially through the yolanda ne, the bone flap was not elevated at this time, but rather a craniotome was used to bisect the bone flap and in situ and this allowed for a plan to be developed between the tumor and dura and remove the bone flap in several pieces. The operative microscope was then brought in. The dura was opened again, the dura was circumferentially opened, that is to circumscribe the tumor which extended from the epidural space to the intradural space intracranially. The complete tumor was isolated, surroun ded and exposed with the margin of dura, about 1 cm around. ____ were then placed on the surface of the brain and the operative microscope was brought in. The tumor was removed and the operative micr oscope with ____ carefully being advanced to protect the brain from inadvertent injury. As the tumo r was elevated using standard microsurgical techniques. En bloc removal of the involved tumor was pe rformed. The resulting craniectomy defect was covered with Duragen and wound was copiously irrigate d wit antibiotic irrigation, meticulous hemostasis having been obtained. Next, the cranioplasty was performed with a [employer] pre-formatted, gently curved occipital craniectomy Titanium mesh craniopla sty, which was gently trimmed and bent to fit the resulting defect from the frontal craniectomy. Th is was secured in place with several mini screws and a SARBJIT drain was left in the subgaleal space. The wound was irrigated again with copious amounts of antibiotic irrigation, and the wound was closed i n layers with 2-0 interrupted Vicryl being used to close the galea and chucho on the skin. The pat ient tolerated the procedure well. There were no complications. All needle and sponge counts were reported as correct x2. Dictated By: MICHAEL BENSON/AFIA Conf#: [id number] DID#: [id number]
[2017-08-22 02:15] VITALS: BP 118/71; RESP 18
[2017-08-22 05:17] LABS: ABNORMAL IP MESSAGE 1; BASOPHIL # 0.1 10^3/ul (0.0-0.1); BASOPHILS % 0.2 % (0.0-2.0); HEMATOCRIT 30.1 % (37.0-47.0); HEMOGLOBIN 9.3 g/dl (12.0-16.0); LYMPHOCYTES # 2.7 10^3/ul (0.8-2.9); LYMPHOCYTES % 11.1 % (15.0-51.0); MEAN CORPUSCULAR HEMOGLOBIN 22.4 pg (29.0-33.0); MEAN CORPUSCULAR HGB CONC 30.9 g/dl (32.0-37.0); MEAN CORPUSCULAR VOLUME 72.4 fl (82.0-101.0); MEAN PLATELET VOLUME 9.5 fl (7.4-10.4); MONOCYTE # 1.6 10^3/ul (0.3-0.9); MONOCYTES % 6.5 % (0.0-11.0); NEUTROPHIL # 18.9 10^3/ul (1.6-7.5); NEUTROPHILS % 78.3 % (39.0-77.0); PLATELET COUNT 232 10^3/UL (140-415); RED BLOOD COUNT 4.16 10^6/ul (4.20-5.40); RED CELL DISTRIBUTION WIDTH 21.8 % (11.5-14.5); WHITE BLOOD COUNT 24.1 10^3/ul (4.8-10.8)
[2017-08-22 05:20] LABS: POSITIVE DIFF @See below
[2017-08-22 05:49] LABS: ALBUMIN 2.7 g/dl (3.3-4.9); CREATININE 0.67 mg/dl (0.44-1.00); MAGNESIUM 1.9 mg/dl (1.7-2.5); PHOSPHORUS 4.1 mg/dl (2.5-4.9); POTASSIUM 4.3 mmol/L (3.5-5.1)
[2017-08-22] MEDS: DEXAMETHASONE 4 MG/ML 1 ML INJ IV SCH ×3 (06:18→21:02)
[2017-08-22] MEDS: INSULIN ASPART [NOVOLOG] 3 ML PEN SC SCH ×4 (07:50→21:02)
[2017-08-22 08:34] VITALS: BP 116/67; RESP 18
[2017-08-22] MEDS: FAMOTIDINE 20 MG TAB PO SCH (08:37)
[2017-08-22] MEDS: TAMOXIFEN 10 MG TAB PO SCH (08:40)
--- NOTE | 2017-08-22 14:04 | CONS ---
Date/Time of Note Date/Time of Note DATE: 08/22/17 TIME: 14:02 Assessment/Plan Assessment/Plan Additional Assessment/Plan Assessment and recommendations; 1. Patient admitted with recurrent pleural effusion status post right Pleurx catheter placement. 2. History of metastatic breast cancer. 3. Right parietal craniotomy for brain tumor resection. Continue current supportive care. Consider discharge. Consultation Date/Type/Reason Admit Date/Time Aug 08, 2017 at 19:54 Initial Consult Date 08/09/17 Type of Consultation: Pulmonary Referring Provider: JUAN MOTLEY 24 HR Interval Summary Free Text/Dictation Patient's condition is stable. Remains completely awake alert. Denies any shortness of breath, chest pain, coughing or sputum production. Denies any headache. General exam; middle-aged woman, currently no distress. Awake and alert. Exam/Review of Systems Vital Signs Vitals Vital Signs Date Time Temp Pulse Resp B/P Pulse Ox O2 Delivery O2 Flow Rate FiO2 08/22/17 08:34 97.9 56 18 116/67 96 08/21/17 14:03 Room Air Intake and Output 08/21/17 08/21/17 08/22/17 15:00 23:00 07:00 Intake Total 700 ml 500 ml Output Total 700 ml Balance 0 ml 500 ml Exam HEENT exam; supple neck, no JVD. No lymphadenopathy. Midline trachea. No thyromegaly. Pharynx is clear. There is a healing right parietal scar. Pupils are equal and reactive to light. Chest exam; diminished but clear breath sound. Pleurx catheter in right lateral chest wall. S1-S2 audible, no murmurs. Regular rhythm. Abdomen exam; soft, nontender. No organomegaly. Bowel sounds audible. Extremity exam; no peripheral edema. No clubbing. LITHOGRAPHIC CAMERA OPERATOR exam; no focal deficit. Results Result Diagram: 08/22/17 0436 08/22/17 0436 Results 24 hrs Laboratory Tests Test 08/21/17 17:57 08/21/17 21:30 08/22/17 04:36 08/22/17 08:37 Bedside Glucose 126 213 133 White Blood Count 24.1 H Red Blood Count 4.16 L Hemoglobin 9.3 L Hematocrit 30.1 L Mean Corpuscular Volume 72.4 L Mean Corpuscular Hemoglobin 22.4 L Mean Corpuscular Hemoglobin Concent 30.9 L Red Cell Distribution Width 21.8 H Platelet Count 232 Mean Platelet Volume 9.5 Neutrophils % 78.3 H Lymphocytes % 11.1 L Monocytes % 6.5 Eosinophils % 0.0 Basophils % 0.2 Nucleated Red Blood Cells % 0.0 Neutrophils # 18.9 H Lymphocytes # 2.7 Monocytes # 1.6 H Eosinophils # 0.0 Basophils # 0.1 Nucleated Red Blood Cells # 0.0 Sodium Level 131 L Potassium Level 4.3 Chloride Level 102 Carbon Dioxide Level 23 Anion Gap 10 Blood Urea Nitrogen 31 H Creatinine 0.67 Glucose Level 127 Calcium Level 8.0 L Phosphorus Level 4.1 Magnesium Level 1.9 Albumin 2.7 L Test 08/22/17 12:46 Bedside Glucose 122 Medications Medications Current Medications Ondansetron HCl (Zofran Inj) 4 mg Q6H PRN IV NAUSEA AND/OR VOMITING Last administered on 08/14/17 01:27; Admin Dose 4 MG; Start 08/08/17 at 22:30 Acetaminophen (Tylenol Liquid) 650 mg Q6H PRN PO PAIN LEVEL 1-3 OR FEVER Last administered on 08/11/17 00:32; Admin Dose 650 MG; Start 08/08/17 at 22:30 Morphine Sulfate (morphine) 2 mg Q4H PRN IV PAIN LEVEL 7-10; Start 08/08/17 at 22:30 Famotidine (Pepcid) 20 mg DAILY PO Last administered on 08/22/17 08:37; Admin Dose 20 MG; Start 08/17/17 at 09:00 Tramadol HCl (Ultram) 50 mg Q6H PRN PO PAIN; Start 08/16/17 at 23:00 Docusate Sodium (Colace) 100 mg BID PRN PO CONSTIPATION; Start 08/16/17 at 23: 00 Bisacodyl (Dulcolax) 5 mg DAILY PRN PO CONSTIPATION; Start 08/16/17 at 23:00 Tamoxifen Citrate (Nolvadex) 20 mg DAILY PO Last administered on 08/22/17 08: 40; Admin Dose 20 MG; Start 08/18/17 at 09:00 Dexamethasone (Decadron) 4 mg Q8 IV Last administered on 08/22/17 06:18; Admin Dose 4 MG; Start 08/18/17 at 22:00 Miscellaneous Information 1 ea NOTE XX ; Start 08/19/17 at 10:30 Glucose (Glutose) 15 gm Q15M PRN PO DECREASED GLUCOSE; Start 08/19/17 at 10:30 Glucose (Glutose) 22.5 gm Q15M PRN PO DECREASED GLUCOSE; Start 08/19/17 at 10: 30 Dextrose (D50w Syringe) 25 ml Q15M PRN IV DECREASED GLUCOSE; Start 08/19/17 at 10:30 Dextrose (D50w Syringe) 50 ml Q15M PRN IV DECREASED GLUCOSE; Start 08/19/17 at 10:30 Glucagon (Glucagen) 1 mg Q15M PRN IM DECREASED GLUCOSE; Start 08/19/17 at 10:30 Glucose (Glutose) 15 gm Q15M PRN BUCCAL DECREASED GLUCOSE; Start 08/19/17 at 10 :30 WENDIE BROOKS Aug 22, 2017 14:04
[2017-08-22 14:10] VITALS: BP 106/61; PULSE 60; RESP 17
--- NOTE | 2017-08-22 15:05 | PN ---
Date/Time of Note Date/Time of Note DATE: 08/22/17 TIME: 15:01 Assessment/Plan VTE Prophylaxis VTE Prophylaxis Intervention: SCD's Lines/Catheters IV [facility] Type [facility] Sal[place] Lock Urinary Cath still in place: No Assessment/Plan Chief Complaint/Hosp Course 1. Breast cancer with metastases to the lung, liver, brain - s/p craniectomy with mesh placement on 08/11/17. Doing well and no issues with confusion - Neurosurgery on board and recommendations appreciated. - Oncology on board and consultation appreciated. Dr. Mendoza is considering initiating systemic therapy with lapatinib with Xeloda post-completion of treatment. Started on Tamoxifen - Rad Oncology on board as well and consultation appreciated. Plans for whole brain irradiation over 3 weeks, 2 doses of 3750 cGy. 2. Hyperglycemia - Due to decadron - Will change to carb consistent diet - ISS and accuchecks 3. 6 mm [id number] midline herniation and effacement of the right lateral ventricle - mental status remains stable - s/p craniectomy - Decadron for cerebral edema 4. Large right-sided pleural effusion - Pleurex cath in place, draining well 5. Anemia of chronic disease - stable and continues to trend up 6. Shortness of breath - resolved 7. Disposition - Will plan to DC for outpatient follow up after confirming appts with heme/onc , rad onc, neurosurgery Problems: Subjective 24 Hr Interval Summary Free Text/Dictation feels well, no nausea/vomiting Exam/Review of Systems Vital Signs Vitals Vital Signs Date Time Temp Pulse Resp B/P Pulse Ox O2 Delivery O2 Flow Rate FiO2 08/22/17 14:10 98.0 60 17 106/61 99 Room Air Intake and Output 08/21/17 08/21/17 08/22/17 15:00 23:00 07:00 Intake Total 700 ml 500 ml Output Total 700 ml Balance 0 ml 500 ml Exam General: NAD, awake and alert. pleasant Head: R side chucho in place- no discharge or drainage Neck: Supple, midline Respiratory: diminished diffusely. no wheezes or rhonchi appreciated Cardiovascular: regular rate, no obvious murmurs Gastrointestinal: non-tender to palpation, bowel sounds heard. Skin: No new skin lesions, R chest pleurex catheter Results Result Diagram: 08/22/17 0436 08/22/17 0436 Results 24 hrs Laboratory Tests Test 08/21/17 17:57 08/21/17 21:30 08/22/17 04:36 08/22/17 08:37 Bedside Glucose 126 213 133 White Blood Count 24.1 H Red Blood Count 4.16 L Hemoglobin 9.3 L Hematocrit 30.1 L Mean Corpuscular Volume 72.4 L Mean Corpuscular Hemoglobin 22.4 L Mean Corpuscular Hemoglobin Concent 30.9 L Red Cell Distribution Width 21.8 H Platelet Count 232 Mean Platelet Volume 9.5 Neutrophils % 78.3 H Lymphocytes % 11.1 L Monocytes % 6.5 Eosinophils % 0.0 Basophils % 0.2 Nucleated Red Blood Cells % 0.0 Neutrophils # 18.9 H Lymphocytes # 2.7 Monocytes # 1.6 H Eosinophils # 0.0 Basophils # 0.1 Nucleated Red Blood Cells # 0.0 Sodium Level 131 L Potassium Level 4.3 Chloride Level 102 Carbon Dioxide Level 23 Anion Gap 10 Blood Urea Nitrogen 31 H Creatinine 0.67 Glucose Level 127 Calcium Level 8.0 L Phosphorus Level 4.1 Magnesium Level 1.9 Albumin 2.7 L Test 08/22/17 12:46 Bedside Glucose 122 Medications Medications Current Medications Ondansetron HCl (Zofran Inj) 4 mg Q6H PRN IV NAUSEA AND/OR VOMITING Last administered on 08/14/17 01:27; Admin Dose 4 MG; Start 08/08/17 at 22:30 Acetaminophen (Tylenol Liquid) 650 mg Q6H PRN PO PAIN LEVEL 1-3 OR FEVER Last administered on 08/11/17 00:32; Admin Dose 650 MG; Start 08/08/17 at 22:30 Morphine Sulfate (morphine) 2 mg Q4H PRN IV PAIN LEVEL 7-10; Start 08/08/17 at 22:30 Famotidine (Pepcid) 20 mg DAILY PO Last administered on 08/22/17 08:37; Admin Dose 20 MG; Start 08/17/17 at 09:00 Tramadol HCl (Ultram) 50 mg Q6H PRN PO PAIN; Start 08/16/17 at 23:00 Docusate Sodium (Colace) 100 mg BID PRN PO CONSTIPATION; Start 08/16/17 at 23: 00 Bisacodyl (Dulcolax) 5 mg DAILY PRN PO CONSTIPATION; Start 08/16/17 at 23:00 Tamoxifen Citrate (Nolvadex) 20 mg DAILY PO Last administered on 08/22/17 08: 40; Admin Dose 20 MG; Start 08/18/17 at 09:00 Dexamethasone (Decadron) 4 mg Q8 IV Last administered on 08/22/17 14:18; Admin Dose 4 MG; Start 08/18/17 at 22:00 Miscellaneous Information 1 ea NOTE XX ; Start 08/19/17 at 10:30 Glucose (Glutose) 15 gm Q15M PRN PO DECREASED GLUCOSE; Start 08/19/17 at 10:30 Glucose (Glutose) 22.5 gm Q15M PRN PO DECREASED GLUCOSE; Start 08/19/17 at 10: 30 Dextrose (D50w Syringe) 25 ml Q15M PRN IV DECREASED GLUCOSE; Start 08/19/17 at 10:30 Dextrose (D50w Syringe) 50 ml Q15M PRN IV DECREASED GLUCOSE; Start 08/19/17 at 10:30 Glucagon (Glucagen) 1 mg Q15M PRN IM DECREASED GLUCOSE; Start 08/19/17 at 10:30 Glucose (Glutose) 15 gm Q15M PRN BUCCAL DECREASED GLUCOSE; Start 08/19/17 at 10 :30 JUAN MOTLEY Aug 22, 2017 15:05
[2017-08-22 19:25] VITALS: BP 110/76; RESP 18
[2017-08-23 02:13] VITALS: BP 108/53; RESP 18
[2017-08-23] MEDS: DEXAMETHASONE 4 MG/ML 1 ML INJ IV SCH (05:12)
[2017-08-23 05:50] LABS: BASOPHILS % 0.2 % (0.0-2.0); HEMATOCRIT 31.9 % (37.0-47.0); HEMOGLOBIN 9.9 g/dl (12.0-16.0); LYMPHOCYTES # 2.6 10^3/ul (0.8-2.9); LYMPHOCYTES % 11.6 % (15.0-51.0); MEAN CORPUSCULAR HEMOGLOBIN 22.7 pg (29.0-33.0); MEAN PLATELET VOLUME 9.1 fl (7.4-10.4); MONOCYTE # 1.4 10^3/ul (0.3-0.9); MONOCYTES % 6.2 % (0.0-11.0); NEUTROPHIL # 17.9 10^3/ul (1.6-7.5); NEUTROPHILS % 78.7 % (39.0-77.0); PLATELET COUNT 239 10^3/UL (140-415); RED BLOOD COUNT 4.37 10^6/ul (4.20-5.40); RED CELL DISTRIBUTION WIDTH 21.6 % (11.5-14.5); WHITE BLOOD COUNT 22.7 10^3/ul (4.8-10.8)
[2017-08-23 06:24] LABS: ALBUMIN 2.8 g/dl (3.3-4.9); CALCIUM 8.3 mg/dl (8.4-10.2); CREATININE 0.68 mg/dl (0.44-1.00); PHOSPHORUS 4.2 mg/dl (2.5-4.9); POTASSIUM 4.5 mmol/L (3.5-5.1)
[2017-08-23 08:31] VITALS: BP 114/69; RESP 18
[2017-08-23] MEDS: FAMOTIDINE 20 MG TAB PO SCH (09:02)
[2017-08-23] MEDS: TAMOXIFEN 10 MG TAB PO SCH (09:03)
[2017-08-23] MEDS: INSULIN ASPART [NOVOLOG] 3 ML PEN SC SCH ×2 (09:04→12:46)
[2017-08-23] MEDS ORDERED: DEC4 PO (10:55)
[2017-08-23] MEDS ORDERED: NOL10 PO (10:55)
[2017-08-23] MEDS ORDERED: NOVO3I SC (10:55)
[2017-08-23] MEDS ORDERED: FAMO20TA18 PO (10:55)
--- NOTE | 2017-08-23 12:04 | CONS ---
Date/Time of Note Date/Time of Note DATE: 08/23/17 TIME: 12:02 Assessment/Plan Assessment/Plan Additional Assessment/Plan Assessment and recommendations; 1. Patient admitted with shortness of breath due to pleural effusions status post Pleurx catheter placement on the right side. Patient requiring daily drainage. 2. Metastatic breast cancer. 3. History of parietal brain tumor resection. Continue current treatment. Consider discharge. Prognosis is poor. Consultation Date/Type/Reason Admit Date/Time Aug 08, 2017 at 19:54 Initial Consult Date 08/09/17 Type of Consultation: Pulmonary Referring Provider: JUAN MOTLEY 24 HR Interval Summary Free Text/Dictation Patient's condition is stable. Denies any shortness of breath, headache, seizures. General exam; middle-aged woman, awake and alert. Currently in no distress. Exam/Review of Systems Vital Signs Vitals Vital Signs Date Time Temp Pulse Resp B/P Pulse Ox O2 Delivery O2 Flow Rate FiO2 08/23/17 08:31 98.5 53 18 114/69 97 08/22/17 14:10 Room Air Intake and Output 08/22/17 08/22/17 08/23/17 15:00 23:00 07:00 Intake Total 780 ml 750 ml Balance 780 ml 750 ml Exam HEENT exam; supple neck, no JVD. No lymphadenopathy. Midline trachea. No thyromegaly. There is a well-healing right parietal scar. He was are midsize and reactive to light. Patient has fair dentition. Chest exam; minimally decreased breath sounds right lower lobe. Pleurx catheter in right lateral chest wall. Left lung is clear to auscultation. S1- S2 audible, no murmurs. Regular rhythm. Abdomen exam; soft, protuberant. Nontender. Bowel sounds audible. Extremity exam; no edema. No clubbing. LEAD PASTOR exam; no focal deficit. Results Result Diagram: 08/23/17 0432 08/23/17 0432 Results 24 hrs Laboratory Tests Test 08/22/17 12:46 08/22/17 17:40 08/22/17 20:59 08/23/17 02:55 Bedside Glucose 122 128 192 157 Test 08/23/17 04:32 08/23/17 09:01 White Blood Count 22.7 H Red Blood Count 4.37 Hemoglobin 9.9 L Hematocrit 31.9 L Mean Corpuscular Volume 73.0 L Mean Corpuscular Hemoglobin 22.7 L Mean Corpuscular Hemoglobin Concent 31.0 L Red Cell Distribution Width 21.6 H Platelet Count 239 Mean Platelet Volume 9.1 Neutrophils % 78.7 H Lymphocytes % 11.6 L Monocytes % 6.2 Eosinophils % 0.0 Basophils % 0.2 Nucleated Red Blood Cells % 0.0 Neutrophils # 17.9 H Lymphocytes # 2.6 Monocytes # 1.4 H Eosinophils # 0.0 Basophils # 0.0 Nucleated Red Blood Cells # 0.0 Sodium Level 133 L Potassium Level 4.5 Chloride Level 102 Carbon Dioxide Level 23 Anion Gap 13 Blood Urea Nitrogen 33 H Creatinine 0.68 Glucose Level 119 Calcium Level 8.3 L Phosphorus Level 4.2 Magnesium Level 2.0 Albumin 2.8 L Bedside Glucose 163 Medications Medications Current Medications Ondansetron HCl (Zofran Inj) 4 mg Q6H PRN IV NAUSEA AND/OR VOMITING Last administered on 08/14/17 01:27; Admin Dose 4 MG; Start 08/08/17 at 22:30 Acetaminophen (Tylenol Liquid) 650 mg Q6H PRN PO PAIN LEVEL 1-3 OR FEVER Last administered on 08/11/17 00:32; Admin Dose 650 MG; Start 08/08/17 at 22:30 Morphine Sulfate (morphine) 2 mg Q4H PRN IV PAIN LEVEL 7-10; Start 08/08/17 at 22:30 Famotidine (Pepcid) 20 mg DAILY PO Last administered on 08/23/17 09:02; Admin Dose 20 MG; Start 08/17/17 at 09:00 Tramadol HCl (Ultram) 50 mg Q6H PRN PO PAIN; Start 08/16/17 at 23:00 Docusate Sodium (Colace) 100 mg BID PRN PO CONSTIPATION; Start 08/16/17 at 23: 00 Bisacodyl (Dulcolax) 5 mg DAILY PRN PO CONSTIPATION; Start 08/16/17 at 23:00 Tamoxifen Citrate (Nolvadex) 20 mg DAILY PO Last administered on 08/23/17 09: 03; Admin Dose 20 MG; Start 08/18/17 at 09:00 Miscellaneous Information 1 ea NOTE XX ; Start 08/19/17 at 10:30 Glucose (Glutose) 15 gm Q15M PRN PO DECREASED GLUCOSE; Start 08/19/17 at 10:30 Glucose (Glutose) 22.5 gm Q15M PRN PO DECREASED GLUCOSE; Start 08/19/17 at 10: 30 Dextrose (D50w Syringe) 25 ml Q15M PRN IV DECREASED GLUCOSE; Start 08/19/17 at 10:30 Dextrose (D50w Syringe) 50 ml Q15M PRN IV DECREASED GLUCOSE; Start 08/19/17 at 10:30 Glucagon (Glucagen) 1 mg Q15M PRN IM DECREASED GLUCOSE; Start 08/19/17 at 10:30 Glucose (Glutose) 15 gm Q15M PRN BUCCAL DECREASED GLUCOSE; Start 08/19/17 at 10 :30 Dexamethasone (Decadron) 4 mg BID PO ; Start 08/23/17 at 21:00 WENDIE BROOKS Aug 23, 2017 12:04
--- NOTE | 2017-08-23 13:14 | DS ---
Date/Time of Note Date/Time of Note DATE: 08/23/17 TIME: 13:14 Discharge Summary Admission/Discharge Info Admit Date/Time Aug 08, 2017 at 19:54 Discharge Date/Time Patient Condition: Stable Hx of Present Illness This is a 46-year-old female with a history of breast cancer with metastasis to lung and liver status post right-sided mastectomy with recurrent rule out effusion who initially presented for a MRI of the brain. During imaging, patient became severely dizzy as a result patient was sent to ER. MRI was completed. She told me that even when she was at home, she was planning on going to the ER after MRI is done because she has been having diffuse headache for the past day or 2 and because of continued shortness of breath. She said a few days ago she had thoracentesis at the outside hospital but she continued to have shortness of breath. She has had multiple thoracentesis for recurrent right-sided pleural effusion. Patient was initially admitted to telemetry unit but acidosis she got there she was noted to have difficulty speaking and a per patient she was also shaking. Patient is admitted to ICU for close monitoring given finding of brain imaging. See below. CT of the head showed Large right trans spatial mass involving the right frontal scalp, calvarium, extra axial space and right frontal lobe with extensive perilesional edema, Multiple left parietal convexity hyperdense lesions at the marquez-white matter junction compatible with additional metastasis. and 6 mm right to left midline herniation and effacement of the right lateral ventricle. Hospital Course Patient is a 47-year-old female with a past medical history of medically noncompliant breast cancer with metastases to the lung liver and brain who presented to [facility] for dizziness during routine MRI ordered by oncologist, found to have worsening brain metastases. Patient was seen by neurosurgery who performed a right-sided craniectomy with mesh placement on August 11, 2017. During this time patient was also seen by her oncologist as well as a radiation oncologist and it was determined that patient should began receiving immediate radiation oncology as well as tamoxifen and additional chemotherapies per oncology. Patient had an uneventful post surgical. And was seen by physical therapy who recommended acute rehab. During this time patient also suffered from a large right-sided pleural effusion and a Pleurx catheter was placed, very likely secondary to a malignant effusion. Patient has been noncompliant in the past, which may be the reason why her metastases have occurred, which is the reason why neurosurgery and hematology oncology will like this patient in some sort of inpatient service for as long as possible. Case management will check with the rehab unit to ensure follow-up with neurosurgeon Dr. Kay for staple removal and craniectomy follow up within 2 weeks, follow up with Dr. Buck Elliott for radiation therapy immediately, and Dr. Alma Doan, heme/onc for follow up for starting additional medical chemotherapy within 3 weeks. Patient will need additional follow-up in the outpatient setting and has been thoroughly explained to the patient the importance of follow-up. Patient will need to continue her home medications and tamoxifen and including Decadron twice a day until radiation therapy is over. Patient also understands these instructions and is happy to be leaving the hospital. Discharge diagnoses Metastatic breast cancer, lungs, liver, brain Brain mass, status post resection, craniectomy on August 11, 2017, residual brain masses do exist Hyperglycemia, likely secondary to Decadron, insulin sliding scale Right pleural effusion, likely malignant, with Pleurx catheter Anemia of chronic disease Home Meds No Active Prescriptions or Reported Meds Primary Care Provider Not On Staff Doctor Time spent on discharge: > 30 minutes Pending Labs Laboratory Tests Test 08/22/17 17:40 08/22/17 20:59 08/23/17 02:55 08/23/17 04:32 Bedside Glucose 128mg/dL (70-220) 192mg/dL (70-220) 157mg/dL (70-220) White Blood Count 22.710^3/ul (4.8-10.8) Red Blood Count 4.3710^6/ul (4.20-5.40) Hemoglobin 9.9g/dl (12.0-16.0) Hematocrit 31.9% (37.0-47.0) Mean Corpuscular Volume 73.0fl (82.0-101.0) Mean Corpuscular Hemoglobin 22.7pg (29.0-33.0) Mean Corpuscular Hemoglobin Concent 31.0g/dl (32.0-37.0) Red Cell Distribution Width 21.6% (11.5-14.5) Platelet Count 83016^3/UL (140-415) Mean Platelet Volume 9.1fl (7.4-10.4) Neutrophils % 78.7% (39.0-77.0) Lymphocytes % 11.6% (15.0-51.0) Monocytes % 6.2% (0.0-11.0) Eosinophils % 0.0% (0.0-7.0) Basophils % 0.2% (0.0-2.0) Nucleated Red Blood Cells % 0.0/100WBC (0.0-0.0) Neutrophils # 17.910^3/ul (1.6-7.5) Lymphocytes # 2.610^3/ul (0.8-2.9) Monocytes # 1.410^3/ul (0.3-0.9) Eosinophils # 0.010^3/ul (0.0-0.5) Basophils # 0.010^3/ul (0.0-0.1) Nucleated Red Blood Cells # 0.010^3/ul (0.0-0.0) Sodium Level 133mmol/L (135-144) Potassium Level 4.5mmol/L (3.5-5.1) Chloride Level 102mmol/L (97-110) Carbon Dioxide Level 23mmol/L (21-31) Anion Gap 13 (8-16) Blood Urea Nitrogen 33mg/dl (7-20) Creatinine 0.68mg/dl (0.44-1.00) Glucose Level 119mg/dl (70-220) Calcium Level 8.3mg/dl (8.4-10.2) Phosphorus Level 4.2mg/dl (2.5-4.9) Magnesium Level 2.0mg/dl (1.7-2.5) Albumin 2.8g/dl (3.3-4.9) Test 08/23/17 09:01 08/23/17 12:37 Bedside Glucose 163mg/dL (70-220) 121mg/dL (70-220) JUAN MOTLEY Aug 23, 2017 13:14
--- NOTE | 2017-08-23 13:18 | PDOCDIS ---
Discharge Instructions CONDITION Patient Condition: Stable HOME CARE INSTRUCTIONS: Diet Instructions: RegularSpecial Diet: CARB CONTROLLED ACTIVITY: Activity Restrictions: Slowly Increase Activity Rest between Activity Avoid heavy lifting Do not Drive Do not operate Machinery Do not operate Power Tool Avoid Heavy Housework Bathing Restrictions: Shower FOLLOW UP/APPOINTMENTS Follow-up Plan 1. Follow up with Dr. Buck Elliott (rad-oncology) [facility], Dr. Kay within 2 weeks, and Dr. Marzena Doan within 3 weeks. 2. DO NOT MISS APPOINTMENTS 3. Take decadron until radiation therapy is over. JUAN MOTLEY Aug 23, 2017 13:18
[2017-08-23 14:29] VITALS: BP 104/76; PULSE 77; RESP 18
[2017-08-23 14:43] VITALS: BP 119/70; RESP 18
[2017-08-23] MEDS ORDERED: DEXAMETHASONE 4 MG TAB PO SCH (21:00)
== END 2017-08-23 16:40 | DRG 25 ==
LOC: E/R 15:49 → MS4 19:54 → ICU 22:14 → MS1 08-14 07:28
PROVIDERS: ADMIT Internal Medicine; ATTEND Internal Medicine
PROC: 0W9930Z Drainage of Right Pleural Cavity with Drainage Device, Percutaneous Approach (ICD-10-PCS; 2017-08-10)
PROC: BB4BZZZ Ultrasonography of Pleura (ICD-10-PCS; 2017-08-10)
PROC: 0NU10JZ Supplement Frontal Bone with Synthetic Substitute, Open Approach (ICD-10-PCS; 2017-08-11)
PROC: 0NB10ZZ Excision of Frontal Bone, Open Approach (ICD-10-PCS; 2017-08-11)
PROC: 8E09XBZ Computer Assisted Procedure of Head and Neck Region (ICD-10-PCS; 2017-08-11)
PROC: 00B00ZZ Excision of Brain, Open Approach (ICD-10-PCS; principal; 2017-08-11 14:00)
PROC: 4A133R1 Monitoring of Arterial Saturation, Peripheral, Percutaneous Approach (ICD-10-PCS; 2017-08-12)
PROC: 30233N1 Transfusion of Nonautologous Red Blood Cells into Peripheral Vein, Percutaneous Approach (ICD-10-PCS; 2017-08-14)
DX: C79.31 Secondary malignant neoplasm of brain (principal); G93.6 Cerebral edema; G93.5 Compression of brain; J91.0 Malignant pleural effusion; C78.00 Secondary malignant neoplasm of unspecified lung; C78.7 Secondary malignant neoplasm of liver and intrahepatic bile duct; C79.51 Secondary malignant neoplasm of bone; Z68.42 Body mass index [BMI] 45.0-49.9, adult; E66.01 Morbid (severe) obesity due to excess calories; D63.8 Anemia in other chronic diseases classified elsewhere; R73.9 Hyperglycemia, unspecified; T38.0X5A Adverse effect of glucocorticoids and synthetic analogues, initial encounter; Z85.3 Personal history of malignant neoplasm of breast; Z90.11 Acquired absence of right breast and nipple; Z98.51 Tubal ligation status; Z88.0 Allergy status to penicillin; Y92.230 Patient room in hospital as the place of occurrence of the external cause
CPT/HCPCS: 36415; 36430; 36600; 70450; 70552; 70553; 71010; 75984; 76942; 80048; 80053; 80069; 81001; 82042; 82803; 82945; 82962; 83615; 83735; 83880; 84100; 84157; 84484; 85025; 85610; 85730; 86140; 86850; 86900; 86901; 86920; 87040; 87070; 87075; 87081; 87102; 87116; 88307; 89051; 94002; 94003; 94664; 94770; 96374; 97161; C1713; J1100; J1170; J1644; J1815; J1953; J2150; J2250; J2405; J3010; J3370; J7030; P9016

== ENCOUNTER 2017-09-05 17:11 | Inpatient (IN) | payer MEDICARE, OTHER ==
[~2017-09-05] VITALS: Ht 167.6 cm; Wt 111.6 kg
[~2017-09-05 17:11] MED LIST changes: -APIX5TAB PO; -BEN25 PO; +DEC4 PO; +FAMO20TA18 PO; -FER325 PO; -HYDR-3498 PO; -NOL20 PO; +NOVO3I SC; -TRAM50TA2 PO; -VENL-42 PO
[2017-09-05] MEDS ORDERED: VANCOMYCIN 1 GM (PMX) 250 ML IVPB STA (18:03)
--- NOTE | 2017-09-05 18:05 | RADRPT ---
PROCEDURE: XR Chest. CLINICAL INDICATION: Shortness of breath. TECHNIQUE: Single frontal view. COMPARISON: 08/15/2017. FINDINGS: Previously noted right internal jugular vein catheter has been removed. There is a new large right p leural effusion. A right chest tube is noted inferiorly. There is atelectasis throughout the right m id and lower lung zones. The left lung is clear and there is no left pleural effusion. The heart size is normal. There is no pleural effusion. There is no pneumothorax. IMPRESSION: 1. Large right pleural effusion. 2. Right IJ catheter removed. 3. Right chest tube. 4. Atelectasis throughout the right mid and lower lung zones. RPTAT: QQ .Itz Parsons MD, MD Date Time Electronically viewed and signed by .Itz Parsons MD, MD on 09/05/2017 18:05 .R/
[2017-09-05] MEDS ORDERED: ONDANSETRON 4 MG INJ IV PRN ×2 (18:30→21:00)
[2017-09-05] MEDS ORDERED: AZTREONAM 1 GM/NS (PMX) 50 ML IVPB ONE (18:30)
[2017-09-05] MEDS ORDERED: ACETAMINOPHEN 325 MG TAB PO PRN ×2 (18:30→21:00)
[2017-09-05 18:40] LABS: ABNORMAL IP MESSAGE 1; BASOPHILS % 0.1 % (0.0-2.0); HEMATOCRIT 27.2 % (37.0-47.0); HEMOGLOBIN 8.2 g/dl (12.0-16.0); LYMPHOCYTES # 1.5 10^3/ul (0.8-2.9); LYMPHOCYTES % 9.4 % (15.0-51.0); MEAN CORPUSCULAR HEMOGLOBIN 22.3 pg (29.0-33.0); MEAN CORPUSCULAR HGB CONC 30.1 g/dl (32.0-37.0); MEAN CORPUSCULAR VOLUME 73.9 fl (82.0-101.0); MONOCYTE # 1.2 10^3/ul (0.3-0.9); MONOCYTES % 7.6 % (0.0-11.0); NEUTROPHILS % 79.9 % (39.0-77.0); PLATELET COUNT 190 10^3/UL (140-415); RED BLOOD COUNT 3.68 10^6/ul (4.20-5.40); RED CELL DISTRIBUTION WIDTH 22.5 % (11.5-14.5); WHITE BLOOD COUNT 16.3 10^3/ul (4.8-10.8)
[2017-09-05 18:44] LABS: POSITIVE DIFF @See below
[2017-09-05 19:04] LABS: CALCIUM 8.6 mg/dl (8.4-10.2); CREATININE 0.46 mg/dl (0.44-1.00); POTASSIUM 4.2 mmol/L (3.5-5.1)
[2017-09-05] MEDS ORDERED: SODIUM CHLORIDE 0.9% 1L BAG IV* STA (19:24)
--- NOTE | 2017-09-05 19:29 | ERD ---
ER Documentation Chief Complaint Chief Complaint RIGHT SIDE TUBE SITE HAS YELLOWISH DRAINAGE SINCE TODAY. HPI Patient is a 47-year-old female with diabetes who presents with draining from a pleural catheter. The patient says that she had drainage from the right sided pleural catheter with "wet" thick yellow fluid. The patient has no blood or pain. She denies chest pain. She was brought in by ambulance from a nursing facility. She is currently receiving chemotherapy and there was plans to start radiation tomorrow. She has had no treatment as of yet. ROS All systems reviewed and are negative except as per history of present illness. Medications Home Meds Active Scripts Insulin Aspart* (Novolog Insulin Pen*) 100 Unit/Ml Soln, 0 UNIT SC WITH MEALS BEDTIME for 30 Days, #30 BOX Prov:JUAN MOTLEY 08/23/17 Dexamethasone* (Decadron*) 4 Mg Tab, 4 MG PO BID for 60 Days, #60 TAB Prov:JUAN MOTLEY 08/23/17 Famotidine* (Famotidine*) 20 Mg Tablet, 20 MG PO DAILY for 30 Days, #30 TAB Prov:JUAN MOTLEY 08/23/17 Tamoxifen Citrate* (Nolvadex*) 10 Mg Tab, 20 MG PO DAILY for 30 Days, #30 TAB Prov:JUAN MOTLEY 08/23/17 Allergies Allergies: Coded Allergies: Penicillins (Verified Allergy, Mild, 08/08/17) hydrocodone bit (Verified Adverse Reaction, Mild, HEADACHE, NAUSEA AND VOMITING, ANAPHYLACTIC SYMPTOMS, 08/11/17) PMhx/Soc History of Surgery: Yes (CHEST TUBE PLACEMENT, RIGHT BREST MASTECTROMY) Anesthesia Reaction: No Hx Neurological Disorder: Yes (dx bRAIN MASS WITH HERNIATION) Hx Respiratory Disorders: Yes (LUNG CA WITH METS, RIGHT PLERUAL EFFUSION) Hx Cardiac Disorders: No Hx Psychiatric Problems: No Hx Miscellaneous Medical Probl: Yes (see H&P) Hx Alcohol Use: No Hx Substance Use: No Hx Tobacco Use: No Smoking Status: Never smoker FmHx Family History: No diabetes Physical Exam Vitals Vital Signs Date Time Temp Pulse Resp B/P Pulse Ox O2 Delivery O2 Flow Rate FiO2 09/05/17 17:25 98.8 64 20 118/76 98 Physical Exam Const: Moderate distress Head: Atraumatic Eyes: Normal Conjunctiva ENT: Normal External Ears, Nose and Mouth. Neck: Full range of motion..~ No meningismus. Resp: Decreased breath sounds on the right side Cardio: Regular rate and rhythm, no murmurs Abd: Soft, non tender, non distended. Normal bowel sounds Skin: Pus from a right-sided pleural catheter Back: No midline or flank tenderness Ext: No cyanosis, or edema Neur: Awake and alert Psych: Normal Mood and Affect Result Diagram: 09/05/17180909/05/171809 Results 24 hrs Laboratory Tests Test 09/05/17 18:10 White Blood Count 16.310^3/ul Red Blood Count 3.6810^6/ul Hemoglobin 8.2g/dl Hematocrit 27.2% Mean Corpuscular Volume 73.9fl Mean Corpuscular Hemoglobin 22.3pg Mean Corpuscular Hemoglobin Concent 30.1g/dl Red Cell Distribution Width 22.5% Platelet Count 52035^3/UL Mean Platelet Volume 9.0fl Neutrophils % 79.9% Lymphocytes % 9.4% Monocytes % 7.6% Eosinophils % 0.0% Basophils % 0.1% Nucleated Red Blood Cells % 0.0/100WBC Neutrophils # 13.010^3/ul Lymphocytes # 1.510^3/ul Monocytes # 1.210^3/ul Eosinophils # 0.010^3/ul Basophils # 0.010^3/ul Nucleated Red Blood Cells # 0.010^3/ul Sodium Level 136mmol/L Potassium Level 4.2mmol/L Chloride Level 105mmol/L Carbon Dioxide Level 26mmol/L Anion Gap 9 Blood Urea Nitrogen 28mg/dl Creatinine 0.46mg/dl Glucose Level 209mg/dl Lactic Acid Level 2.7mmol/L Calcium Level 8.6mg/dl Current Medications Medications (Trade) Dose Ordered Sig/Mariza Route PRN Reason Start Time Stop Time Status Last Admin Dose Admin Vancomycin HCl 250 ml @ 125 mls/hr ONCE STAT IVPB 09/05/17 18:03 09/05/17 20:02 Aztreonam (Azactam 1gm/NS (Pmx)) 50 ml @ 100 mls/hr ONCE ONCE IVPB 09/05/17 18:30 09/05/17 18:59 DC 09/05/17 18:51 Ondansetron HCl (Zofran Inj) 4 mg BRIDGE ORDER PRN IV NAUSEA AND/OR VOMITING 09/05/17 18:30 09/06/17 18:29 Acetaminophen (Tylenol Tab) 650 mg ER BRIDGE PRN PO MILD PAIN/FEVER 09/05/17 18:30 09/06/17 18:29 Sodium Chloride (NS) 3,460 ml BOLUS OVER 2 HOURS STAT IV* 09/05/17 19:24 09/05/17 19:25 Procedures/MDM Chest X-ray 1V Interpreted by me: Soft Tissue: No acute abnormalities Bones: No acute abnormalities Mediastinum/Cardiac Silhouette/Lungs: Right-sided pleural effusion with catheter in place Admit MDM: Patient's infectious symptoms have not stabilized and the patient is at risk of rapid decompensation. The patient will be admitted for careful hydration, antibiotic therapy, and infectious source control. Severe Sepsis criteria: Infectious source: Infected pleural effusion End organ damage indicated by: Lactate greater than 2 Sepsis Management: Time of recognition of sepsis: 1924 Within 3 hours of recognition: Blood cultures x 2 before broad-spectrum antibiotics: Yes 30 ml/kg NS bolus Completed Initial lactate 2.7 Repeat lactate pending Time of recognition of septic shock: No septic shock Septic Shock Assessment: Any lactic acid > 4.0 No Persistent hypotension (SBP < 90 or 40 mmHg drop, MAP < 65) despite 30 mL/kg IV fluid bolus No Volume Re-assessment for Septic Shock (post 30 ml/kg bolus): No septic shock at this time Persistent Hypotension Treatment: Comfort care No Central line Not Required Vasopressor started Not required I considered further perfusion assessment with CVP measurement, SCVO2, bedside ultrasound volume assessment, passive leg raise, trial of further fluid bolus. And proceeded with 30 ml/kg fluid bolus of NSS, broad spectrum antibiotics, and admission. Accepting Care Team Current data and ongoing care discussed. Admitting Physician: Dr. Rodriguez Fretted Instrument Repairer(s): None Outstanding Data: Culture results Critical Care: Critical care time 35 minutes excluding all billable procedures Emergent fluid management while maintaining close respiratory support. Provision of immediate and broad-spectrum antibiotic therapy. Simultaneous assessment for possible sources in order to direct targeted therapy. Consideration for invasive and chemical support to prevent cardiopulmonary collapse. Departure Diagnosis: Primary Impression: Severe sepsis Additional Impressions: Pleural effusion associated with pulmonary infection Anemia Anemia type: unspecified type Qualified Code: D64.9 - Anemia, unspecified type Leukocytosis Leukocytosis type: unspecified Qualified Code: D72.829 - Leukocytosis, unspecified type Condition: Fair OSTICK,NORMAN MD Sep 05, 2017 19:29
[2017-09-05 19:40] VITALS: TEMP 97.5
[2017-09-05] MEDS ORDERED: NOVO3I SC (20:10)
[2017-09-05] MEDS ORDERED: DOCU-144 PO (20:11)
[2017-09-05] MEDS ORDERED: MAGN400O4 PO (20:11)
[2017-09-05] MEDS ORDERED: BISA10SU75 PR (20:12)
[2017-09-05] MEDS ORDERED: FLEETPED PR (20:13)
[2017-09-05] MEDS ORDERED: ACET325T33 PO (20:14)
[2017-09-05] MEDS ORDERED: ACET-141 PO (20:15)
[2017-09-05] MEDS ORDERED: DEXA4TAB PO (20:17)
[2017-09-05] MEDS ORDERED: CRAN425C2 PO (20:17)
[2017-09-05] MEDS ORDERED: FAMO20TA18 PO (20:18)
[2017-09-05] MEDS ORDERED: TAMO20TA PO (20:20)
[2017-09-05 21:00] VITALS: Ht 167.6 cm; Wt 111.6 kg
[2017-09-05] MEDS ORDERED: OXYCODONE/ACETAMINOPHEN (5/325) TAB PO PRN (21:00)
[2017-09-05] MEDS ORDERED: NACL 0.9% 3 ML SYG IV SCH (21:00)
[2017-09-05] MEDS ORDERED: SODIUM CHLORIDE 0.9% 1L BAG IV SCH (21:00)
[2017-09-05] MEDS ORDERED: MAGNESIUM HYDROXIDE 30ML CUP PO PRN (21:00)
[2017-09-05] MEDS ORDERED: DOCUSATE SODIUM 100 MG CAP PO PRN (21:00)
[2017-09-05] MEDS: SOD CHLORIDE 0.9% 1,000 ML IV SCH (21:00)
[2017-09-05] MEDS ORDERED: ALBUTEROL 0.083% (NEB) 2.5 MG/3 ML AMP HHN PRN (21:00)
[2017-09-05] MEDS ORDERED: GLUCAGON 1 MG INJ IM PRN (21:30)
[2017-09-05] MEDS ORDERED: GLUCOSE GEL 15 GRAM TUBE BUCCAL PRN (21:30)
[2017-09-05] MEDS ORDERED: DEXTROSE 50% 50 ML SYRINGE IV PRN ×2 (21:30)
[2017-09-05] MEDS ORDERED: GLUCOSE GEL 15 GRAM TUBE PO PRN ×2 (21:30)
[2017-09-05 21:46] VITALS: BP 117/61; RESP 18
--- NOTE | 2017-09-05 22:26 | HP ---
Date/Time of Note Date/Time of Note DATE: 09/05/17 TIME: 22:13 Assessment/Plan VTE Prophylaxis VTE Prophylaxis Intervention: SCD's Assessment/Plan Chief Complaint/Hosp Course A/P 1. Pleural effusion; stable, consult Pul. pleurex catheter therapy 2. Chest Wall Cellulitis? ID Consult. 3. Metastatic/ Recurrent Breast Ca- lung/liver/brain met's 4. POD ~30 Crani 5. FTT; snf Problems: HPI/ROS Admit Date/Time Admit Date/Time Sep 05, 2017 at 18:29 Hx of Present Illness 39-year-old female with metastatic breast cancer who was residing at [facility] rehab for pleural effusion Pleurx catheter therapy. There may have been some issues lately and were unable to drain her fluid. She is noticed that the fluid has been leaking and was sent to the ER for eval. Denies any fever chills loss of appetite. She does notice some drainage around the chest tube site. ER: Stable vital signs ROS Neurological system: No loss of speech or vision. Not much headache. Cardiovascular: No chest pain positive dyspnea no edema Lungs: Positive dyspnea no edema but no fever Abdomen: No pain nausea vomiting. Feels some sort of fullness Genitourinary: No abdominal pain dysuria fever Musculoskeletal: Mild gait dysfunction needs assistance with ambulating. No rash no itching Psychiatry: No anxiety agitation depression Endocrine: No previous diabetes dyslipidemia or thyroid dysfunction Hematologic; no hemoptysis hematuria hematochezia Constitutional: No fevers no chills. PMH/Family/Social Social History Smoking Status: Never smoker Exam/Review of Systems Vital Signs Vitals Vital Signs Date Time Temp Pulse Resp B/P Pulse Ox O2 Delivery O2 Flow Rate FiO2 09/05/17 21:46 98.3 56 18 117/61 97 09/05/17 19:40 Room Air Exam Exam No pallor adenopathy icterus. Postop craniectomy site C/D/I Regular no murmur rub gallop Dimin bs; on right no tachypnea. Rt chest tube in place probably; dressing soaked Bs + nt nd; no r/r/g Mild edema negative Homans Labs Result Diagram: 09/05/17180909/05/171809 Medications Medications Current Medications Dexamethasone (Decadron) 4 mg BID PO ; Start 09/05/17 at 21:00 Docusate Sodium (Colace) 200 mg QHS PO ; Start 09/05/17 at 21:00 Diagnostic Test (Pha) (Accu-Chek) 1 ea 02 XX ; Start 09/06/17 at 02:00 Ondansetron HCl (Zofran Inj) 4 mg Q6H PRN IV NAUSEA AND/OR VOMITING; Start at 21:00 Acetaminophen (Tylenol Tab) 650 mg Q6H PRN PO PAIN LEVEL 1-3 OR FEVER; Start 09/05/17 at 21:00 Oxycodone/ Acetaminophen (Percocet (5/ 325)) 1 tab Q6H PRN PO MODERATE PAIN LEVEL 4-6; Start 09/05/17 at 21:00 Morphine Sulfate (morphine) 2 mg Q4H PRN IV SEVERE PAIN LEVEL 7-10; Start at 21:00 Docusate Sodium (Colace) 100 mg Q12H PRN PO CONSTIPATION; Start 09/05/17 at 21 :00 Magnesium Hydroxide (Milk Of Mag) 30 ml DAILY PRN PO CONSTIPATION; Start 09/05 at 21:00 Famotidine (Pepcid) 20 mg Q12 PO ; Start 09/05/17 at 21:00 Albuterol 2.5 mg 2.5 mg Q2 PRN HHN SHORTNESS OF BREATH; Start 09/05/17 at 21: 00 Sodium Chloride (NS) 1,000 ml @ 75 mls/hr [id number] IV ; Start 09/05/17 at 21:00 Miscellaneous Information 1 ea NOTE XX ; Start 09/05/17 at 21:30 Glucose (Glutose) 15 gm Q15M PRN PO DECREASED GLUCOSE; Start 09/05/17 at 21:30 Glucose (Glutose) 22.5 gm Q15M PRN PO DECREASED GLUCOSE; Start 09/05/17 at 21: 30 Dextrose (D50w Syringe) 25 ml Q15M PRN IV DECREASED GLUCOSE; Start 09/05/17 at 21:30 Dextrose (D50w Syringe) 50 ml Q15M PRN IV DECREASED GLUCOSE; Start 09/05/17 at 21:30 Glucagon (Glucagen) 1 mg Q15M PRN IM DECREASED GLUCOSE; Start 09/05/17 at 21: 30 Glucose (Glutose) 15 gm Q15M PRN BUCCAL DECREASED GLUCOSE; Start 09/05/17 at 21:30 MAURICE DUARTE MD Sep 05, 2017 22:25
[2017-09-05] MEDS: FAMOTIDINE 20 MG TAB PO SCH (22:37)
[2017-09-05] MEDS: DEXAMETHASONE 4 MG TAB PO SCH (22:37)
[2017-09-05] MEDS: DOCUSATE SODIUM 100 MG CAP PO SCH (22:37)
[2017-09-06 01:51] VITALS: BP 115/69; PULSE 62; RESP 16
[2017-09-06 02:00] VITALS: BP 115/69; RESP 20
[2017-09-06] MEDS ORDERED: ACCU-CHEK XX SCH (02:00)
[2017-09-06] MEDS: ACCU-CHEK XX SCH (02:00)
[2017-09-06 06:34] LABS: BASOPHILS % 0.1 % (0.0-2.0); HEMATOCRIT 26.9 % (37.0-47.0); HEMOGLOBIN 8.1 g/dl (12.0-16.0); LYMPHOCYTES # 1.4 10^3/ul (0.8-2.9); LYMPHOCYTES % 9.9 % (15.0-51.0); MEAN CORPUSCULAR HEMOGLOBIN 22.3 pg (29.0-33.0); MEAN CORPUSCULAR HGB CONC 30.1 g/dl (32.0-37.0); MEAN CORPUSCULAR VOLUME 74.1 fl (82.0-101.0); MEAN PLATELET VOLUME 8.7 fl (7.4-10.4); MONOCYTE # 0.8 10^3/ul (0.3-0.9); MONOCYTES % 5.6 % (0.0-11.0); NEUTROPHIL # 11.2 10^3/ul (1.6-7.5); NEUTROPHILS % 82.1 % (39.0-77.0); PLATELET COUNT 172 10^3/UL (140-415); RED BLOOD COUNT 3.63 10^6/ul (4.20-5.40); WHITE BLOOD COUNT 13.7 10^3/ul (4.8-10.8)
[2017-09-06 07:07] LABS: ALBUMIN 2.4 g/dl (3.3-4.9); ALBUMIN/GLOBULIN RATIO 0.92; BILIRUBIN,INDIRECT 0.2 mg/dl (0-1.1); BILIRUBIN,TOTAL 0.2 mg/dl (0.2-1.3); CALCIUM 7.7 mg/dl (8.4-10.2); CREATININE 0.4 mg/dl (0.44-1.00); MAGNESIUM 1.8 mg/dl (1.7-2.5); PHOSPHORUS 3.8 mg/dl (2.5-4.9); POTASSIUM 4.3 mmol/L (3.5-5.1)
[2017-09-06 08:04] VITALS: BP 128/72; RESP 16
[2017-09-06] MEDS ORDERED: FAMOTIDINE 20 MG TAB PO SCH (09:00)
[2017-09-06] MEDS: DEXAMETHASONE 4 MG TAB PO SCH ×2 (09:29→20:44)
[2017-09-06] MEDS: FAMOTIDINE 20 MG TAB PO SCH ×2 (09:29→20:44)
[2017-09-06] MEDS: SOD CHLORIDE 0.9% 1,000 ML IV SCH (10:20)
[2017-09-06 10:41] LABS: THYROID STIMULATING HORMONE 0.557 MIU/L (0.465-4.680)
--- NOTE | 2017-09-06 11:27 | CONS ---
Date/Time of Note Date/Time of Note DATE: 09/06/17 TIME: 11:25 Assessment/Plan Assessment/Plan Additional Assessment/Plan Chest x-ray was reviewed from yesterday which is showing significant right pleural effusion. Assessment and recommendations; 1. Patient with history of metastatic breast cancer admitted for right-sided pleural effusion and shortness of breath. Pleurx catheter not been able to drain any further pleural fluid. 2. Recent right parietal craniotomy for tumor resection. 3. Anemia. Schedule ultrasound-guided thoracentesis on the right side. Continue current supportive care. Consultation Date/Type/Reason Admit Date/Time Sep 05, 2017 at 18:29 Date of Consultation: Sep 06, 2017 Type of Consultation: Pulmonary Hx of Present Illness Patient's condition is stable. Complains of mild shortness of breath. Denies any chest pain, coughing, wheezing. General exam; middle-aged woman, awake and alert. Currently in no distress. Social History Smoking Status: Never smoker Exam/Review of Systems Vital Signs Vitals Vital Signs Date Time Temp Pulse Resp B/P Pulse Ox O2 Delivery O2 Flow Rate FiO2 09/06/17 08:04 98.7 61 16 128/72 95 09/06/17 01:51 Room Air 09/05/17 22:00 2.0 Intake and Output 09/05/17 09/05/17 09/06/17 15:00 23:00 07:00 Intake Total 300 ml 0 ml Output Total 500 ml Balance 300 ml -500 ml Exam HEENT exam; supple neck, no JVD. No lymphadenopathy. Midline trachea. No thyromegaly. Right parietal surgical scar is healing well. Pharynx is clear. Chest exam; right Pleurx catheter in place. Diminished breath sounds right lower lobe. Left lung is clear to auscultation. S1-S2 audible, no murmurs. Regular rhythm. Abdomen exam; soft, nontender. No organomegaly. Bowel sounds audible. Extremity exam; no peripheral edema. Pulses 1+ bilaterally. MUSIC WORKER exam; no focal deficit. Results Result Diagram: 09/06/17 0534 09/06/17 0534 Results 24 hrs Laboratory Tests Test 09/05/17 18:10 09/05/17 20:28 09/05/17 22:30 09/05/17 22:40 White Blood Count 16.3 #H Red Blood Count 3.68 L Hemoglobin 8.2 L Hematocrit 27.2 L Mean Corpuscular Volume 73.9 L Mean Corpuscular Hemoglobin 22.3 L Mean Corpuscular Hemoglobin Concent 30.1 L Red Cell Distribution Width 22.5 H Platelet Count 190 # Mean Platelet Volume 9.0 Neutrophils % 79.9 H Lymphocytes % 9.4 L Monocytes % 7.6 Eosinophils % 0.0 Basophils % 0.1 Nucleated Red Blood Cells % 0.0 Neutrophils # 13.0 H Lymphocytes # 1.5 Monocytes # 1.2 H Eosinophils # 0.0 Basophils # 0.0 Nucleated Red Blood Cells # 0.0 Sodium Level 136 Potassium Level 4.2 Chloride Level 105 Carbon Dioxide Level 26 Anion Gap 9 Blood Urea Nitrogen 28 H Creatinine 0.46 Glucose Level 209 Lactic Acid Level 2.7 *H 1.9 1.9 Calcium Level 8.6 Bedside Glucose 167 Test 09/06/17 05:34 White Blood Count 13.7 H Red Blood Count 3.63 L Hemoglobin 8.1 L Hematocrit 26.9 L Mean Corpuscular Volume 74.1 L Mean Corpuscular Hemoglobin 22.3 L Mean Corpuscular Hemoglobin Concent 30.1 L Red Cell Distribution Width 22.0 H Platelet Count 172 Mean Platelet Volume 8.7 Neutrophils % 82.1 H Lymphocytes % 9.9 L Monocytes % 5.6 Eosinophils % 0.0 Basophils % 0.1 Nucleated Red Blood Cells % 0.0 Neutrophils # 11.2 H Lymphocytes # 1.4 Monocytes # 0.8 Eosinophils # 0.0 Basophils # 0.0 Nucleated Red Blood Cells # 0.0 Sodium Level 137 Potassium Level 4.3 Chloride Level 106 Carbon Dioxide Level 24 Anion Gap 11 Blood Urea Nitrogen 23 H Creatinine 0.40 L Glucose Level 136 # Hemoglobin A1c 6.2 H Calcium Level 7.7 L Phosphorus Level 3.8 Magnesium Level 1.8 Total Bilirubin 0.2 Direct Bilirubin 0.00 Indirect Bilirubin 0.2 Aspartate Amino Transf (AST/SGOT) 23 Alanine Aminotransferase (ALT/SGPT) 33 Alkaline Phosphatase 93 Troponin I 0.018 Total Protein 5.0 L Albumin 2.4 L Globulin 2.60 Albumin/Globulin Ratio 0.92 Thyroid Stimulating Hormone (TSH) 0.557 Medications Medications Current Medications Dexamethasone (Decadron) 4 mg BID PO Last administered on 09/06/17t 09:29; Admin Dose 4 MG; Start 09/05/17 at 21:00 Docusate Sodium (Colace) 200 mg QHS PO Last administered on 09/05/17 22:37; Admin Dose 200 MG; Start 09/05/17 at 21:00 Diagnostic Test (Pha) (Accu-Chek) 1 ea 02 XX ; Start 09/06/17 at 02:00 Ondansetron HCl (Zofran Inj) 4 mg Q6H PRN IV NAUSEA AND/OR VOMITING; Start at 21:00 Acetaminophen (Tylenol Tab) 650 mg Q6H PRN PO PAIN LEVEL 1-3 OR FEVER; Start 09/05/17 at 21:00 Oxycodone/ Acetaminophen (Percocet (5/ 325)) 1 tab Q6H PRN PO MODERATE PAIN LEVEL 4-6; Start 09/05/17 at 21:00 Morphine Sulfate (morphine) 2 mg Q4H PRN IV SEVERE PAIN LEVEL 7-10; Start at 21:00 Docusate Sodium (Colace) 100 mg Q12H PRN PO CONSTIPATION; Start 09/05/17 at 21 :00 Magnesium Hydroxide (Milk Of Mag) 30 ml DAILY PRN PO CONSTIPATION; Start 09/05 at 21:00 Famotidine (Pepcid) 20 mg Q12 PO Last administered on 09/06/17 09:29; Admin Dose 20 MG; Start 09/05/17 at 21:00 Albuterol 2.5 mg 2.5 mg Q2 PRN HHN SHORTNESS OF BREATH; Start 09/05/17 at 21: 00 Sodium Chloride (NS) 1,000 ml @ 75 mls/hr [id number] IV ; Start 09/05/17 at 21:00 Miscellaneous Information 1 ea NOTE XX ; Start 09/05/17 at 21:30 Glucose (Glutose) 15 gm Q15M PRN PO DECREASED GLUCOSE; Start 09/05/17 at 21:30 Glucose (Glutose) 22.5 gm Q15M PRN PO DECREASED GLUCOSE; Start 09/05/17 at 21: 30 Dextrose (D50w Syringe) 25 ml Q15M PRN IV DECREASED GLUCOSE; Start 09/05/17 at 21:30 Dextrose (D50w Syringe) 50 ml Q15M PRN IV DECREASED GLUCOSE; Start 09/05/17 at 21:30 Glucagon (Glucagen) 1 mg Q15M PRN IM DECREASED GLUCOSE; Start 09/05/17 at 21: 30 Glucose (Glutose) 15 gm Q15M PRN BUCCAL DECREASED GLUCOSE; Start 09/05/17 at 21:30 Nystatin (Nystatin Powder) 1 applic BID TOP ; Start 09/06/17 at 09:00 WENDIE BROOKS Sep 06, 2017 11:27
[2017-09-06] MEDS: NYSTATIN 30 GM POWDER BTL TOP SCH ×2 (14:43→20:53)
[2017-09-06 14:56] VITALS: BP 122/73; RESP 16
[2017-09-06] MEDS: TAMOXIFEN 10 MG TAB PO SCH (15:22)
[2017-09-06] MEDS ORDERED: LIDOCAINE 1% (MPF) 5 ML VIAL ONE (16:17)
--- NOTE | 2017-09-06 16:38 | RADRPT ---
PROCEDURE: US guided right thoracentesis. CLINICAL INDICATION: Shortness of breath. Right pleural effusion. TECHNIQUE: Prior to the procedure, informed consent was obtained. The risks, benefits, and alternatives were e xplained to the patient or the patient's family, including but not limited to bleeding, infection, p ain, visceral or vascular damage, shock, pneumothorax, chest tube placement, air embolism, and . The patient or the patient's family understood the risks and the alternatives and wished to proce ed with the study. Informed written consent was obtained. A procedural pause was performed. The patient's name, date of , and procedure to be performed were verified. Ultrasound of the right hemithorax was performed in the axial and sagittal planes. A right pleural e ffusion is noted. Utilizing ultrasound guidance, optimal location for entry to the pleural cavity wa s ascertained. The overlying skin was prepped and draped in the usual sterile fashion. Approximate ly 10 ml of 1% Xylocaine was injected locally for pain control. Using ultrasound guidance, a 5-Fren ch Yueh catheter was introduced into the right pleural space without difficulty. Fluid was aspirated . COMPARISON: None. FINDINGS: Initial ultrasound demonstrates fluid in the right pleural space. Approximately 0.250 liters of ser ous fluid was aspirated and sent to the laboratory. IMPRESSION: 1. Satisfactory ultrasound-guided right thoracentesis. RPTAT: QQ .Itz Parsons MD, Date Time Electronically viewed and signed by .Itz Parsons MD, on 09/06/2017 16:38 .R/
--- NOTE | 2017-09-06 16:49 | PN ---
Date/Time of Note Date/Time of Note DATE: 09/06/17 TIME: 16:47 Assessment/Plan VTE Prophylaxis VTE Prophylaxis Intervention: ambulation Lines/Catheters IV Catheter Type (from Nrs): Peripheral IV Assessment/Plan Chief Complaint/Hosp Course Patient is a 39-year-old female with a past medical history of metastatic breast cancer with metastases to the liver and brain who presents from [facility] for malfunctioning Pleurx catheter. Assessment and plan Dysfunctional Pleurx catheter Cellulitis, area around catheter Metastatic breast cancer, lung, liver, brain Diabetes mellitus Obesity Status post craniectomy for brain metastases -Continue Decadron and tamoxifen -We will consult case management to reschedule radiation therapy, was planned for today -Ultrasound-guided thoracentesis performed -ID consulted for possible cellulitis, empiric antibiotics -Pulmonology consulted for malfunctioning Pleurx catheter -Continue home meds as tolerated -PT OT Problems: Subjective 24 Hr Interval Summary Free Text/Dictation no acute complaints except leaking catheter Exam/Review of Systems Vital Signs Vitals Vital Signs Date Time Temp Pulse Resp B/P Pulse Ox O2 Delivery O2 Flow Rate FiO2 09/06/17 14:56 98.7 58 16 122/73 99 09/06/17 08:00 Nasal Cannula 2.0 Intake and Output 09/05/17 09/05/17 09/06/17 15:00 23:00 07:00 Intake Total 300 ml 0 ml Output Total 500 ml Balance 300 ml -500 ml Exam Physical exam General: Patient is laying in bed and answers questions appropriately Mentation: Patient is alert and oriented 4, Head: R side craniectomy site healing well. no more chucho Eyes: EOMI, pupils reactive to light Neck: Supple, nontender, midline Respiratory: decreased lung sounds on the R Cardiovascular: regular rate, no obvious murmurs Gastrointestinal: non-tender to palpation, bowel sounds heard. Neurological: Moves all extremities spontaneously Skin: erythematous skin around pleurx cath site, leaking catheter Results Result Diagram: 09/06/17 0534 09/06/17 0534 Results 24 hrs Laboratory Tests Test 09/05/17 18:10 09/05/17 20:28 09/05/17 22:30 09/05/17 22:40 White Blood Count 16.3 #H Red Blood Count 3.68 L Hemoglobin 8.2 L Hematocrit 27.2 L Mean Corpuscular Volume 73.9 L Mean Corpuscular Hemoglobin 22.3 L Mean Corpuscular Hemoglobin Concent 30.1 L Red Cell Distribution Width 22.5 H Platelet Count 190 # Mean Platelet Volume 9.0 Neutrophils % 79.9 H Lymphocytes % 9.4 L Monocytes % 7.6 Eosinophils % 0.0 Basophils % 0.1 Nucleated Red Blood Cells % 0.0 Neutrophils # 13.0 H Lymphocytes # 1.5 Monocytes # 1.2 H Eosinophils # 0.0 Basophils # 0.0 Nucleated Red Blood Cells # 0.0 Sodium Level 136 Potassium Level 4.2 Chloride Level 105 Carbon Dioxide Level 26 Anion Gap 9 Blood Urea Nitrogen 28 H Creatinine 0.46 Glucose Level 209 Lactic Acid Level 2.7 *H 1.9 1.9 Calcium Level 8.6 Bedside Glucose 167 Test 09/06/17 05:34 09/06/17 12:36 White Blood Count 13.7 H Red Blood Count 3.63 L Hemoglobin 8.1 L Hematocrit 26.9 L Mean Corpuscular Volume 74.1 L Mean Corpuscular Hemoglobin 22.3 L Mean Corpuscular Hemoglobin Concent 30.1 L Red Cell Distribution Width 22.0 H Platelet Count 172 Mean Platelet Volume 8.7 Neutrophils % 82.1 H Lymphocytes % 9.9 L Monocytes % 5.6 Eosinophils % 0.0 Basophils % 0.1 Nucleated Red Blood Cells % 0.0 Neutrophils # 11.2 H Lymphocytes # 1.4 Monocytes # 0.8 Eosinophils # 0.0 Basophils # 0.0 Nucleated Red Blood Cells # 0.0 Sodium Level 137 Potassium Level 4.3 Chloride Level 106 Carbon Dioxide Level 24 Anion Gap 11 Blood Urea Nitrogen 23 H Creatinine 0.40 L Glucose Level 136 # Hemoglobin A1c 6.2 H Calcium Level 7.7 L Phosphorus Level 3.8 Magnesium Level 1.8 Total Bilirubin 0.2 Direct Bilirubin 0.00 Indirect Bilirubin 0.2 Aspartate Amino Transf (AST/SGOT) 23 Alanine Aminotransferase (ALT/SGPT) 33 Alkaline Phosphatase 93 Troponin I 0.018 Total Protein 5.0 L Albumin 2.4 L Globulin 2.60 Albumin/Globulin Ratio 0.92 Thyroid Stimulating Hormone (TSH) 0.557 Bedside Glucose 123 Medications Medications Current Medications Dexamethasone (Decadron) 4 mg BID PO Last administered on 09/06/17t 09:29; Admin Dose 4 MG; Start 09/05/17 at 21:00 Docusate Sodium (Colace) 200 mg QHS PO Last administered on 09/05/17 22:37; Admin Dose 200 MG; Start 09/05/17 at 21:00 Diagnostic Test (Pha) (Accu-Chek) 1 ea 02 XX ; Start 09/06/17 at 02:00 Ondansetron HCl (Zofran Inj) 4 mg Q6H PRN IV NAUSEA AND/OR VOMITING; Start at 21:00 Acetaminophen (Tylenol Tab) 650 mg Q6H PRN PO PAIN LEVEL 1-3 OR FEVER; Start 09/05/17 at 21:00 Oxycodone/ Acetaminophen (Percocet (5/ 325)) 1 tab Q6H PRN PO MODERATE PAIN LEVEL 4-6; Start 09/05/17 at 21:00 Morphine Sulfate (morphine) 2 mg Q4H PRN IV SEVERE PAIN LEVEL 7-10; Start at 21:00 Docusate Sodium (Colace) 100 mg Q12H PRN PO CONSTIPATION; Start 09/05/17 at 21 :00 Magnesium Hydroxide (Milk Of Mag) 30 ml DAILY PRN PO CONSTIPATION; Start 09/05 at 21:00 Famotidine (Pepcid) 20 mg Q12 PO Last administered on 09/06/17 09:29; Admin Dose 20 MG; Start 09/05/17 at 21:00 Albuterol 2.5 mg 2.5 mg Q2 PRN HHN SHORTNESS OF BREATH; Start 09/05/17 at 21: 00 Sodium Chloride (NS) 1,000 ml @ 75 mls/hr [id number] IV Last administered on 10:20; Admin Dose 75 MLS/HR; Start 09/05/17 at 21:00 Miscellaneous Information 1 ea NOTE XX ; Start 09/05/17 at 21:30 Glucose (Glutose) 15 gm Q15M PRN PO DECREASED GLUCOSE; Start 09/05/17 at 21:30 Glucose (Glutose) 22.5 gm Q15M PRN PO DECREASED GLUCOSE; Start 09/05/17 at 21: 30 Dextrose (D50w Syringe) 25 ml Q15M PRN IV DECREASED GLUCOSE; Start 09/05/17 at 21:30 Dextrose (D50w Syringe) 50 ml Q15M PRN IV DECREASED GLUCOSE; Start 09/05/17 at 21:30 Glucagon (Glucagen) 1 mg Q15M PRN IM DECREASED GLUCOSE; Start 09/05/17 at 21: 30 Glucose (Glutose) 15 gm Q15M PRN BUCCAL DECREASED GLUCOSE; Start 09/05/17 at 21:30 Nystatin (Nystatin Powder) 1 applic BID TOP Last administered on 09/06/17 14: 43; Admin Dose 1 APPLIC; Start 09/06/17 at 09:00 Tamoxifen Citrate (Nolvadex) 20 mg DAILY PO Last administered on 09/06/17 15: 22; Admin Dose 20 MG; Start 09/06/17 at 13:00 Diagnostic Test (Pha) (Accu-Chek) 1 ea 02 XX ; Start 09/07/17 at 02:00 Diagnostic Test (Pha) (Accu-Chek) 1 ea 02 XX ; Start 09/07/17 at 02:00 JUAN MOTLEY Sep 06, 2017 16:49
--- NOTE | 2017-09-06 16:57 | RADRPT ---
PROCEDURE: Chest radiograph CLINICAL INDICATION: Evaluation following right-sided thoracentesis.. COMPARISON: Radiograph from 09/05/2017. TECHNIQUE: Single frontal chest radiograph. FINDINGS: Minimally decreased size of moderate right pleural effusion. Fluid still layers within the minor fissure. No pneumothorax. The left lung is clear. Cardiomegaly. No suspicious bone lesion. IMPRESSION: Minimally decreased size of right pleural effusion. No pneumothorax. RPTAT: EE Physician Gregory Date Time Electronically viewed and signed by Jasvir Epps Physician on 09/06/2017 16:57 LG/
[2017-09-06 17:00] VITALS: BP 117/70; PULSE 60; RESP 18
[2017-09-06] MEDS: INSULIN ASPART [NOVOLOG] 3 ML PEN SC SCH ×2 (17:33→20:50)
[2017-09-06 18:40] LABS: FLD MN% 41.1 %; FLD PMN% 58.9 %
[2017-09-06 19:08] LABS: FLD CLARITY BLOODY; FLD TYPE PLEURAL
[2017-09-06 19:09] LABS: FLD COLOR RED; FLD WBC 180 /cmm; FLUID LD 1140 U/L; FLUID TOTAL PROTEIN 2.7 g/dl; FLUID TYPE FLUID
[2017-09-06 19:10] LABS: FLUID GLUCOSE 89 mg/dl; FLUID TYPE FLUID
[2017-09-06 19:40] VITALS: BP 113/62; RESP 20
[2017-09-06] MEDS: DOXYCYCLINE 100 MG in SOD CHLORIDE 0.9% 250 ML IVPB SCH (20:43)
[2017-09-06] MEDS: DOCUSATE SODIUM 100 MG CAP PO SCH (20:44)
[2017-09-07] MEDS: SOD CHLORIDE 0.9% 1,000 ML IV SCH (01:21)
[2017-09-07] MEDS: ACCU-CHEK XX SCH ×2 (01:26→01:27)
[2017-09-07] MEDS ORDERED: ACCU-CHEK XX SCH (02:00)
[2017-09-07 02:16] VITALS: BP 119/71; RESP 20
[2017-09-07 07:39] VITALS: BP 126/80; RESP 18
[2017-09-07] MEDS: INSULIN ASPART [NOVOLOG] 3 ML PEN SC SCH ×4 (08:15→20:58)
--- NOTE | 2017-09-07 08:38 | CONS ---
DATE OF ADMISSION: 09/05/2017 DATE OF CONSULTATION: 09/06/2017 INFECTIOUS DISEASE CONSULTATION NOTE REASON FOR CONSULTATION: Antibiotic management. HISTORY OF PRESENT ILLNESS: Chayito Lim is a 47-year-old female with metastatic breast CA, who comes in with pleural effusion and is being seen for antibiotic management. The patient has a Pleur X catheter and lately she has been unable to drain her fluid, and has been leaking and she was sent to the emergency room for evaluation. She notes some drainage around the chest tube site. On admis raza, her white count is 16.3, H and H 8.2 and 27.2, platelet count 190,000, BUN and creatinine is 2 8/0.46, glucose of 209. PAST MEDICAL HISTORY: Operations as outlined. FAMILY HISTORY: Noncontributory. SOCIAL HISTORY: She does not smoke, drink or abuse drugs. ALLERGIES: NONE TO PENICILLIN, SULFA OR FOODS. MEDICATIONS: Per chart. REVIEW OF SYSTEMS: As per HPI. PHYSICAL EXAMINATION: GENERAL: The patient is a chronically ill-appearing female in no acute distress. VITAL SIGNS: Stable. She is afebrile. SKIN: Without generalized rash. She has no icterus. HEENT: She has post-craniotomy site which is clean, dry. NECK: Supple. LYMPH NODES: None palpable. LUNGS: Clear to P and A. HEART: Without murmur or gallop. ABDOMEN: Soft, nontender. She has decreased breath sounds at the bases, and she has a right chest tube in place with leakage. ABDOMEN: Soft, nontender without organosplenomegaly or masses. EXTREMITIES: Without cyanosis, clubbing or edema. RECTAL AND GENITAL: Deferred. NEUROLOGICAL: No focal neurological abnormalities. HOSPITAL COURSE: Her white count today is 13.7. She received a dose of vancomycin once. The pleur al fluid was sent for studies, glucose, LDH, total protein, albumin, cell count, also blood cultures were done and catheter fluid was collected. We will await the outcome of these studies. She has a n ultrasound thoracentesis which was ordered. She has a large right pleural effusion. Right IJ cat heter was removed. Right chest tube is noted inferiorly. Left lung is clear, no left pleural effus ion. Heart sound is normal. Right chest tube atelectasis throughout the right mid and lower lung z ones. IMPRESSION AND PLAN: At this point, I will continue her off antibiotic therapy until we get the res ults of her thoracentesis or at least the results of the studies that were done. Her white count is 13.7 today. I will dictate my findings to the hospitalist and to Dr. Ramirez, pulmonology. Dictated By: FELISHA VITALE MD, JD/AFIA Conf#: [id number] DID#: [id number] CC: WENDIE RAMIREZ MD; MINDY NEGRON;*End*
[2017-09-07] MEDS: DOXYCYCLINE 100 MG in SOD CHLORIDE 0.9% 250 ML IVPB SCH (08:53)
[2017-09-07] MEDS: FAMOTIDINE 20 MG TAB PO SCH ×2 (09:25→20:54)
[2017-09-07] MEDS: NYSTATIN 30 GM POWDER BTL TOP SCH ×2 (09:25→20:55)
[2017-09-07] MEDS: DEXAMETHASONE 4 MG TAB PO SCH ×2 (09:26→20:54)
[2017-09-07] MEDS: TAMOXIFEN 10 MG TAB PO SCH (09:28)
--- NOTE | 2017-09-07 12:13 | CONS ---
Date/Time of Note Date/Time of Note DATE: 09/07/17 TIME: 12:11 Consult Date/Type/Reason Admit Date/Time Sep 05, 2017 at 18:29 Initial Consult Date 09/06/17 Type of Consultation: Pulmonary Subjective Well-nourished well-developed lady appears comfortable at rest no acute distress. Thoracentesis yesterday 250 cc. Objective Vital Signs Date Time Temp Pulse Resp B/P Pulse Ox O2 Delivery O2 Flow Rate FiO2 09/07/17 07:39 98.3 57 18 126/80 97 09/06/17 20:00 Nasal Cannula 09/06/17 08:00 2.0 Intake and Output 09/06/17 09/06/17 09/07/17 15:00 23:00 07:00 Intake Total 1210 ml 615 ml Output Total 650 ml 1400 ml Balance 560 ml -785 ml Exam GENERAL: VITAL SIGNS: per chart NECK: Supple. No JVD or lymphadenopathy. CARDIAC EXAM: S1, S2. No added sounds or murmurs. CHEST: Diminished air entry right lung. ABDOMEN: Soft, nontender. No guarding or rebound. EXTREMITIES: No cyanosis, clubbing or edema. NEUROLOGIC: Generalized weakness. No focal deficits. Results/Medications Result Diagram: 09/06/17 0534 09/06/17 0534 Results 24 hrs Laboratory Tests Test 09/06/17 12:36 09/06/17 16:15 09/06/17 17:32 09/06/17 20:46 Bedside Glucose 123 138 205 Body Fluid Type FLUID Body Fluid Volume 290.0 Body Fluid Color RED Body Fluid Appearance BLOODY Body Fluid WBC 180 Body Fluid RBC (Auto) 5 Body Fluid Polynuclear WBCs (%) 58.9 Body Fluid Mononuclear Cells % Auto 41.1 Body Fluid Glucose 89 Body Fluid Total Protein 2.7 Body Fluid Lactate Dehydrogenase 1140 Test 09/07/17 01:20 09/07/17 07:59 Bedside Glucose 183 134 Medications Current Medications Dexamethasone (Decadron) 4 mg BID PO Last administered on 09/07/17 09:26; Admin Dose 4 MG; Start 09/05/17 at 21:00 Docusate Sodium (Colace) 200 mg QHS PO Last administered on 09/06/17 20:44; Admin Dose 200 MG; Start 09/05/17 at 21:00 Diagnostic Test (Pha) (Accu-Chek) 1 ea 02 XX Last administered on 09/07/17 01 :26; Admin Dose 1 EA; Start 09/06/17 at 02:00 Ondansetron HCl (Zofran Inj) 4 mg Q6H PRN IV NAUSEA AND/OR VOMITING; Start at 21:00 Acetaminophen (Tylenol Tab) 650 mg Q6H PRN PO PAIN LEVEL 1-3 OR FEVER; Start 09/05/17 at 21:00 Oxycodone/ Acetaminophen (Percocet (5/ 325)) 1 tab Q6H PRN PO MODERATE PAIN LEVEL 4-6; Start 09/05/17 at 21:00 Morphine Sulfate (morphine) 2 mg Q4H PRN IV SEVERE PAIN LEVEL 7-10; Start at 21:00 Docusate Sodium (Colace) 100 mg Q12H PRN PO CONSTIPATION; Start 09/05/17 at 21 :00 Magnesium Hydroxide (Milk Of Mag) 30 ml DAILY PRN PO CONSTIPATION; Start 09/05 at 21:00 Famotidine (Pepcid) 20 mg Q12 PO Last administered on 09/07/17 09:25; Admin Dose 20 MG; Start 09/05/17 at 21:00 Albuterol (Proventil 0.083% (Neb)) 2.5 mg Q2 PRN HHN SHORTNESS OF BREATH; Start 09/05/17 at 21:00 Miscellaneous Information 1 ea NOTE XX ; Start 09/05/17 at 21:30 Glucose (Glutose) 15 gm Q15M PRN PO DECREASED GLUCOSE; Start 09/05/17 at 21:30 Glucose (Glutose) 22.5 gm Q15M PRN PO DECREASED GLUCOSE; Start 09/05/17 at 21: 30 Dextrose (D50w Syringe) 25 ml Q15M PRN IV DECREASED GLUCOSE; Start 09/05/17 at 21:30 Dextrose (D50w Syringe) 50 ml Q15M PRN IV DECREASED GLUCOSE; Start 09/05/17 at 21:30 Glucagon (Glucagen) 1 mg Q15M PRN IM DECREASED GLUCOSE; Start 09/05/17 at 21: 30 Glucose (Glutose) 15 gm Q15M PRN BUCCAL DECREASED GLUCOSE; Start 09/05/17 at 21:30 Nystatin (Nystatin Powder) 1 applic BID TOP Last administered on 09/07/17 09: 25; Admin Dose 1 APPLIC; Start 09/06/17 at 09:00 Tamoxifen Citrate (Nolvadex) 20 mg DAILY PO Last administered on 09/07/17 09: 28; Admin Dose 20 MG; Start 09/06/17 at 13:00 Diagnostic Test (Pha) (Accu-Chek) 1 ea 02 XX ; Start 09/07/17 at 02:00 Diagnostic Test (Pha) 1 ea 1 ea 02 XX ; Start 09/07/17 at 02:00 Doxycycline Hyclate/Sodium Chloride (Vibramycin/NS) 250 ml @ 250 mls/hr Q12 IVPB Last administered on 09/07/17 08:53; Admin Dose 250 MLS/HR; Start 09/06 at 21:00 Assessment/Plan Chief Complaint/Hosp Course Assessment 1. Metastatic breast cancer with recurrent right pleural effusion. 2. Pleurx catheter site infection and likely tube displacement. Plan 1. CT chest to evaluate likely loculated pleural effusion 2. Radiology to replace Pleurx catheter in appropriate pleural space. 3. Continue antibiotic coverage for staph infection. Problems: MARTINEZ MASCORRO MD, [facility] Sep 07, 2017 12:13
[2017-09-07 13:40] VITALS: BP 152/83; RESP 16
[2017-09-07 13:45] VITALS: BP 139/63; RESP 16
[2017-09-07 14:10] LABS: FLD RBC 5000 /uL
--- NOTE | 2017-09-07 15:03 | PN ---
DATE: 09/07/2017 SUBJECTIVE: No events overnight. The patient is alert, sitting in a chair, feels better. Looks comfortable, no fevers. No labs this morning. MICROBIOLOGY: Aspirated pleural fluid from Pleurx growing Staphylococcus aureus preliminary. Nares swab pending and blood cultures negative. ANTIMICROBIALS: The patient is on IV doxycycline. DIAGNOSTICS: Chest x-ray yesterday revealed minimally decreased right pleural effusion. PHYSICAL EXAMINATION: GENERAL: This is an obese, well-developed, middle-aged woman who is alert, in no distress. HEENT: Head atraumatic, normocephalic. Sclerae anicteric. Buccal mucosa pink. NECK: Supple. CHEST: Rise symmetrical. Breath sounds diminished to the right. The patient has right-sided Pleurx catheter. HEART: S1, S2. ABDOMEN: Soft, bowel tones present. EXTREMITIES: Without cyanosis. ASSESSMENT: 1. Metastatic breast carcinoma. 2. Persistent pleural effusion with a history of Pleurx catheter that seems to be infected, with pleural fluid cultures growing Staphylococcus aureus. 3. Diabetes. 4. History of craniectomy from brain metastases. PLAN: The patient remains clinically stable. We are going to change doxycycline to Vanco, await for final cultures of pleural fluid pending. F/u pulmonary rec-s. Consider removal of Pleurx catheter. Dictated By: ZULEYMA ALEX LEAD [employer] DEVELOPER for FELISHA LU/AFIA Conf#: [id number] DID#: [id number] JAMSHID
--- NOTE | 2017-09-07 15:42 | PN ---
Date/Time of Note Date/Time of Note DATE: 09/07/17 TIME: 15:31 Assessment/Plan VTE Prophylaxis VTE Prophylaxis Intervention: ambulation Lines/Catheters IV Catheter Type (from Nrs): Peripheral IV Assessment/Plan Chief Complaint/Hosp Course Patient is a 39-year-old female with a past medical history of metastatic breast cancer with metastases to the liver and brain who presents from [facility] for malfunctioning Pleurx catheter. Assessment and plan Dysfunctional Pleurx catheter Cellulitis, area around catheter empyema?, staph aureus. Metastatic breast cancer, lung, liver, brain Diabetes mellitus Obesity Status post craniectomy for brain metastases -Continue Decadron and tamoxifen -radiation therapy today -Ultrasound-guided thoracentesis performed, cultures showing staph aureus -ID consulted, abx per ID, to order PICC if needed -Pulmonology consulted for malfunctioning Pleurx catheter, will have to remove vs reposition. -Continue home meds as tolerated -PT OT DISPO: -IV abx, ?loculated effusion, Dispo back to rehab once stable Problems: Subjective 24 Hr Interval Summary Free Text/Dictation feels better than yesterday Exam/Review of Systems Vital Signs Vitals Vital Signs Date Time Temp Pulse Resp B/P Pulse Ox O2 Delivery O2 Flow Rate FiO2 09/07/17 13:45 97.6 73 16 139/63 96 09/06/17 20:00 Nasal Cannula 09/06/17 08:00 2.0 Intake and Output 09/06/17 09/06/17 09/07/17 15:00 23:00 07:00 Intake Total 1210 ml 615 ml Output Total 650 ml 1400 ml Balance 560 ml -785 ml Exam Physical exam General: Patient is laying in bed and answers questions appropriately Mentation: Patient is alert and oriented 4, Head: R side craniectomy site healing well. no more chucho Eyes: EOMI, pupils reactive to light Neck: Supple, nontender, midline Respiratory: decreased lung sounds on the R Cardiovascular: regular rate, no obvious murmurs Gastrointestinal: non-tender to palpation, bowel sounds heard. Neurological: Moves all extremities spontaneously Skin: erythematous skin around pleurx cath site, leaking catheter Results Result Diagram: 09/06/17 0534 09/06/17 0534 Results 24 hrs Laboratory Tests Test 09/06/17 16:15 09/06/17 17:32 09/06/17 20:46 09/07/17 01:20 Body Fluid Type FLUID Body Fluid Volume 290.0 Body Fluid Color RED Body Fluid Appearance BLOODY Body Fluid WBC 180 Body Fluid RBC (Auto) 5000 Body Fluid Polynuclear WBCs (%) 58.9 Body Fluid Mononuclear Cells % Auto 41.1 Body Fluid Glucose 89 Body Fluid Total Protein 2.7 Body Fluid Lactate Dehydrogenase 1140 Bedside Glucose 138 205 183 Test 09/07/17 07:59 09/07/17 12:19 Bedside Glucose 134 105 Medications Medications Current Medications Dexamethasone (Decadron) 4 mg BID PO Last administered on 09/07/17 09:26; Admin Dose 4 MG; Start 09/05/17 at 21:00 Docusate Sodium (Colace) 200 mg QHS PO Last administered on 09/06/17 20:44; Admin Dose 200 MG; Start 09/05/17 at 21:00 Diagnostic Test (Pha) (Accu-Chek) 1 ea 02 XX Last administered on 09/07/17 01 :26; Admin Dose 1 EA; Start 09/06/17 at 02:00 Ondansetron HCl (Zofran Inj) 4 mg Q6H PRN IV NAUSEA AND/OR VOMITING; Start at 21:00 Acetaminophen (Tylenol Tab) 650 mg Q6H PRN PO PAIN LEVEL 1-3 OR FEVER; Start 09/05/17 at 21:00 Oxycodone/ Acetaminophen (Percocet (5/ 325)) 1 tab Q6H PRN PO MODERATE PAIN LEVEL 4-6; Start 09/05/17 at 21:00 Morphine Sulfate (morphine) 2 mg Q4H PRN IV SEVERE PAIN LEVEL 7-10; Start at 21:00 Docusate Sodium (Colace) 100 mg Q12H PRN PO CONSTIPATION; Start 09/05/17 at 21 :00 Magnesium Hydroxide (Milk Of Mag) 30 ml DAILY PRN PO CONSTIPATION; Start 09/05 at 21:00 Famotidine (Pepcid) 20 mg Q12 PO Last administered on 09/07/17 09:25; Admin Dose 20 MG; Start 09/05/17 at 21:00 Albuterol (Proventil 0.083% (Neb)) 2.5 mg Q2 PRN HHN SHORTNESS OF BREATH; Start 09/05/17 at 21:00 Miscellaneous Information 1 ea NOTE XX ; Start 09/05/17 at 21:30 Glucose (Glutose) 15 gm Q15M PRN PO DECREASED GLUCOSE; Start 09/05/17 at 21:30 Glucose (Glutose) 22.5 gm Q15M PRN PO DECREASED GLUCOSE; Start 09/05/17 at 21: 30 Dextrose (D50w Syringe) 25 ml Q15M PRN IV DECREASED GLUCOSE; Start 09/05/17 at 21:30 Dextrose (D50w Syringe) 50 ml Q15M PRN IV DECREASED GLUCOSE; Start 09/05/17 at 21:30 Glucagon (Glucagen) 1 mg Q15M PRN IM DECREASED GLUCOSE; Start 09/05/17 at 21: 30 Glucose (Glutose) 15 gm Q15M PRN BUCCAL DECREASED GLUCOSE; Start 09/05/17 at 21:30 Nystatin (Nystatin Powder) 1 applic BID TOP Last administered on 09/07/17 09: 25; Admin Dose 1 APPLIC; Start 09/06/17 at 09:00 Tamoxifen Citrate (Nolvadex) 20 mg DAILY PO Last administered on 09/07/17 09: 28; Admin Dose 20 MG; Start 09/06/17 at 13:00 Diagnostic Test (Pha) (Accu-Chek) 1 ea 02 XX ; Start 09/07/17 at 02:00 Diagnostic Test (Pha) 1 ea 1 ea 02 XX ; Start 09/07/17 at 02:00 Doxycycline Hyclate/Sodium Chloride (Vibramycin/NS) 250 ml @ 250 mls/hr Q12 IVPB Last administered on 09/07/17 08:53; Admin Dose 250 MLS/HR; Start 09/06 at 21:00 JUAN MOTLEY Sep 07, 2017 15:42
[2017-09-07] MEDS ORDERED: VANCOMYCIN IV PER PHARMACY XX SCH (16:00)
--- NOTE | 2017-09-07 16:18 | RADRPT ---
PROCEDURE: CT Chest Without Contrast CLINICAL INDICATION: Right pleural effusion TECHNIQUE: Volumetric acquisition of the thorax was performed without the intravenous administrati on of contrast. One or more of the following dose reduction techniques were used: - Automated exposure control. - Adjustment of the mA and/or kV according to patient size. Use of iterative reconstruction technique. Radiation Dose: CTDI = 16.38 mGy; DLP = 661.74 mGy-cm. COMPARISON: 07/29/2017. FINDINGS: Since the previous study, a percutaneous drainage catheter is been placed from a right lateral inter costal approach with the tip directed medially within the right inferior hemithorax. Lung leblanc: There is increasing atelectasis of the right lower lobe and right middle lobe and disco id atelectatic change is now seen in the right upper lobe. Minimal discoid atelectasis is seen in th e left posterior sulcus. A 5 mm noncalcified nodule is seen in the superior segment of the left uppe r lobe, unchanged. The pleural spaces: There is increasing largely loculated appearing right pleural fluid accumulation which measures 10 at 12 HU. There is pleural thickening within the posterior sulcus, along the late ral right hemithorax and most extensively within the anterior right lung base. Lymph nodes: There is a 1.9 cm in short diameter subcarinal node. There are two 1.1 cm in short diam eter pretracheal nodes, a 1 points is 7 cm in short diameter prevascular node seen superior to the a ortic arch, and a 1.6 cm right axillary node. Cardiovascular structures: The heart is upper normal in size and there is mild pericardial thickenin g. The aorta is normal in caliber. Thyroid: Unremarkable. Superior abdominal structures: Focal areas of decreased attenuation are seen within the liver includ ing 1 measuring 6.8 x 4.3 cm within the posterior right lobe 1 measuring 3.9 cm within the lateral s egment left lobe, and multiple smaller hypodensities compatible with hepatic metastasis. No adrenal mass is evident. Osseous structures: There is increased sclerosis within the sternum suspicious for osteoblastic meta stasis. The remaining visualized osseous elements appear intact. Mild diffuse degenerative endplate changes are seen to the spine. Soft tissues: The right breast is absent. IMPRESSION: 1. When compared to the previous study of 07/29/2017, there is again evidence of a previous right m astectomy. 2. There is been an interval increase to the large largely loculated appearing right pleural fluid accumulation which measures 10-12 HU. There is increasing right lower lobe and right middle lobe ate lectasis and increasing discoid atelectasis is seen in the right upper lobe. There is increasing nod ular pleural thickening at the periphery of the right lung and at the anterior right lung base suspi cious for carcinomatosis. A drainage catheter has been placed from a right lateral intercostal appro ach with the tip directed medially within the right inferior and posterior hemithorax. 3. Discoid atelectasis is seen in the left posterior sulcus. There is been no change to the 5 mm no ncalcified nodule seen in the superior segment of the left lower lobe which could represent a stable metastatic deposit. 4. Mediastinal adenopathy is again evident. 5. The heart is upper normal in size and there is slightly increased pericardial thickening. The ao rta is normal in caliber. 6. There is been a slight interval increase in size to multiple hypodense hepatic lesions compatibl e with hepatic metastases. The largest is seen in the posterior right lobe measuring 6.8 cm in maxim al diameter. 7. There is again increased sclerosis within the sternum suspicious for a blastic metastasis. Degen erative spine changes are again noted. Physician Sofia Date Time Electronically viewed and signed by Physician Sofia on 09/07/2017 16:18 /
[2017-09-07 16:42] VITALS: BP 139/80; RESP 16
[2017-09-07] MEDS ORDERED: VANCOMYCIN 1.75 GM in NS 500 ML IVPB ONE (17:00)
--- NOTE | 2017-09-07 19:31 | CONS ---
Date/Time of Note Date/Time of Note DATE: 09/07/17 TIME: 19:15 Assessment/Plan Assessment/Plan Chief Complaint/Hosp Course #Her2+/ER+/NJ+ metastatic breast ca -pt is non compliant and when she receives therapy, she is quite responsive to therapy -therefore at this time, although she has terminal disease, there are still many more treatment options which she could benefit from -given her Brain mets, I would consider a combination of Xeloda and Lapatinib which can penetrate the blood brain barrier -once she stabilizes can restart Tamoxifen as well #Pleural Effusion -pt is s/p thoracentesis -pleurex catheter was adjusted -continue antibiotics for infection at catheter site #Brain Mets -pt is s/p resection -pt to start WBRT with Dr. Ybarra tomorrow Problems: Consultation Date/Type/Reason Admit Date/Time Sep 05, 2017 at 18:29 Date of Consultation: Sep 07, 2017 Type of Consultation: Oncology Reason for Consultation Metastatic Breast Cancer Referring Provider: MINDY NEGRON of Present Illness 46-year-old female first seen our office in Oct 2014. Her history is as follows: -04/09/2013 had a right mastectomy on for a 3 cm poorly differentiated infiltrating ductal carcinoma with high-grade ductal carcinoma in situ measuring 3 cm with clear margins, but 7/8 nodes were positive for cancer. Her ER and NJ were strongly positive. Ki-67 was high at 82%. Her HER-2/abraham was positive at 3+ by IHC,, PT was initially treated by Dr. Derrek Coleman who presumably gave the patient adjuvant Taxotere/ Cytoxan and Herceptin which was completed in 02/2014 with breaks in the therapy due to patient non compliance. PT was also given Tamoxifen which she only took for 2 months. -10/2014 pt presented to our clinic and was restarted on Tamoxifen The patient received untilchemotherapy until 02/2014, but I do not have the flow sheet. The patient was started on tamoxifen earlier this year, but she stopped after two months because of side effects. -01/2016 Re-presented to our clinic, off tamoxifen for almost [address] done revealed enlarged lymph nodes in R axilla and intrathroacic lymph nodes. Also noted were pulmonary nodules, right pleural effusion, liver mets and bone mets. She changed insurance. It should be noted that her BRCA1 and BRCA2 were done, which were negative. 03/2016 - PT started TAxotere/ Cytoxan / Herceptin. She received 6 cycles until 09/27/16. Shew as also placed back on Tamoxifen 06/[address] showed significant response to treatment with resolved pleural effusion, and resolved lymphadenopathy as well as decrease in liver mets and resolved bone mets. 11/2016: pt was on single agent Tamoxifen as she wanted to take a break from infusional therapy. 12/2016: PET CT was done which demonstrated continued decrease in lymphadenopathy and continued decrease in the hepatic mets. osseous mets were stable. 01/2017 was the last time we saw her in clinic. 05/2017 : pt was noted to have recurrent pleural effusions and had a pleurex catheter placed and removed. The cytology was malignant. She was to follow up with me as an outpatient to re-initiate therapy 07/2017 - CT Chest was done which demonstrated loculated pleural effusion concerning for carcinomatosis. Also seen are multiple pulmonary nodules and lymph adenopathy 08/04/[address] : new metabolic uptake in anterior temporal lobe concerning for brain mets. extensive new liver mets, progressive osseous mets and progressive coco mets in the bilateral lower neck, right axilla, chest and abdomen. also seen is a new right pleural effusion. also seen are progressive pulmonary mets. 08/08/17 Brain MRI done revealed mass in right frontal calvarium extending to overlying scalp soft tissue and underling meninges measuring 5cm. also seen is a mass in patienec right sphenotemporal buttress extending to dura measuring 1.9 cm. also seen in a left parietal lobe lesion measuring 9mm, there is associated midline shift and no herniation Patient is now being admitted for infection at the pleurex catheter site and displacement of the pleurex catheter. Patient has since undergone thoracentesis for loculated pleural effusion. 250cc of pleural fluid was obtained. Constitutional: improved Eyes: no complaints ENT: no complaints Respiratory: shortness of breath Cardiovascular: no complaints Gastrointestinal: no complaints Genitourinary: no complaints Musculoskeletal: bone/joint pain Skin: no complaints Neurologic: no complaints Endocrine: no complaints Past Medical History metastatic breast cancer with brain mets Family History Significant Family History: no pertinent family hx Social History Alcohol Use: none Smoking Status: Never smoker Drug Use: none Exam/Review of Systems Vital Signs Vitals Vital Signs Date Time Temp Pulse Resp B/P Pulse Ox O2 Delivery O2 Flow Rate FiO2 10/26/17 16:42 98.7 68 16 139/80 97 09/06/17 20:00 Nasal Cannula 09/06/17 08:00 2.0 Intake and Output 09/06/17 09/06/17 09/07/17 15:00 23:00 07:00 Intake Total 1210 ml 615 ml Output Total 650 ml 1400 ml Balance 560 ml -785 ml Exam Constitutional: alert, distress Psych: no complaints Head: normocephalic Eyes: nl conjunctiva ENMT: nl external ears & nose, nl lips & teeth Neck: non-tender, supple Respiratory: diminished breath sounds, other (pleurex cather in place) Cardiovascular: regular rate and rhythm Gastrointestinal: soft Musculoskeletal: nl extremities to inspection Results Result Diagram: 09/06/17 0534 09/06/17 0534 Results 24 hrs Laboratory Tests Test 09/06/17 20:46 09/07/17 01:20 09/07/17 07:59 09/07/17 12:19 Bedside Glucose 205 183 134 105 Test 09/07/17 17:25 Bedside Glucose 140 Medications Medications Current Medications Dexamethasone (Decadron) 4 mg BID PO Last administered on 09/07/17 09:26; Admin Dose 4 MG; Start 09/05/17 at 21:00 Docusate Sodium (Colace) 200 mg QHS PO Last administered on 09/06/17 20:44; Admin Dose 200 MG; Start 09/05/17 at 21:00 Ondansetron HCl (Zofran Inj) 4 mg Q6H PRN IV NAUSEA AND/OR VOMITING; Start at 21:00 Acetaminophen (Tylenol Tab) 650 mg Q6H PRN PO PAIN LEVEL 1-3 OR FEVER; Start 09/05/17 at 21:00 Oxycodone/ Acetaminophen (Percocet (5/ 325)) 1 tab Q6H PRN PO MODERATE PAIN LEVEL 4-6; Start 09/05/17 at 21:00 Morphine Sulfate (morphine) 2 mg Q4H PRN IV SEVERE PAIN LEVEL 7-10; Start at 21:00 Docusate Sodium (Colace) 100 mg Q12H PRN PO CONSTIPATION; Start 09/05/17 at 21 :00 Magnesium Hydroxide (Milk Of Mag) 30 ml DAILY PRN PO CONSTIPATION; Start 09/05 at 21:00 Famotidine (Pepcid) 20 mg Q12 PO Last administered on 09/07/17 09:25; Admin Dose 20 MG; Start 09/05/17 at 21:00 Albuterol (Proventil 0.083% (Neb)) 2.5 mg Q2 PRN HHN SHORTNESS OF BREATH; Start 09/05/17 at 21:00 Miscellaneous Information 1 ea NOTE XX ; Start 09/05/17 at 21:30 Glucose (Glutose) 15 gm Q15M PRN PO DECREASED GLUCOSE; Start 09/05/17 at 21:30 Glucose (Glutose) 22.5 gm Q15M PRN PO DECREASED GLUCOSE; Start 09/05/17 at 21: 30 Dextrose (D50w Syringe) 25 ml Q15M PRN IV DECREASED GLUCOSE; Start 09/05/17 at 21:30 Dextrose (D50w Syringe) 50 ml Q15M PRN IV DECREASED GLUCOSE; Start 09/05/17 at 21:30 Glucagon (Glucagen) 1 mg Q15M PRN IM DECREASED GLUCOSE; Start 09/05/17 at 21: 30 Glucose (Glutose) 15 gm Q15M PRN BUCCAL DECREASED GLUCOSE; Start 09/05/17 at 21:30 Nystatin (Nystatin Powder) 1 applic BID TOP Last administered on 09/07/17 09: 25; Admin Dose 1 APPLIC; Start 09/06/17 at 09:00 Tamoxifen Citrate (Nolvadex) 20 mg DAILY PO Last administered on 09/07/17 09: 28; Admin Dose 20 MG; Start 09/06/17 at 13:00 Diagnostic Test (Pha) 1 ea 1 ea 02 XX ; Start 09/07/17 at 02:00 Vancomycin HCl 1.75 gm/Sodium Chloride 500 ml @ 125 mls/hr ONCE ONCE IVPB Last administered on 09/07/17 16:44; Admin Dose 125 MLS/HR; Start 09/07/17 at 17:00; Stop 09/07/17 at 20:59 Vancomycin HCl/ Sodium Chloride (Vancocin/NS) 250 ml @ 83.333 mls/ hr Q12H IVPB ; Start 09/08/17 at 05:00 ANTWON DYE M.D. Sep 07, 2017 19:30
[2017-09-07 20:00] VITALS: BP 111/59; RESP 20
[2017-09-07] MEDS: DOCUSATE SODIUM 100 MG CAP PO SCH (20:54)
[2017-09-08 02:00] VITALS: BP 111/68; RESP 20
[2017-09-08] MEDS: ACCU-CHEK XX SCH (02:58)
[2017-09-08] MEDS: VANCOMYCIN 1.5 GM in SOD CHLORIDE 0.9% 250 ML IVPB SCH ×2 (05:52→16:06)
[2017-09-08 06:45] LABS: ABNORMAL IP MESSAGE 1; BASOPHILS % 0.1 % (0.0-2.0); HEMATOCRIT 27.5 % (37.0-47.0); HEMOGLOBIN 8.4 g/dl (12.0-16.0); LYMPHOCYTES # 1.8 10^3/ul (0.8-2.9); LYMPHOCYTES % 10.8 % (15.0-51.0); MEAN CORPUSCULAR HEMOGLOBIN 22.3 pg (29.0-33.0); MEAN CORPUSCULAR HGB CONC 30.5 g/dl (32.0-37.0); MEAN CORPUSCULAR VOLUME 73.1 fl (82.0-101.0); MEAN PLATELET VOLUME 8.9 fl (7.4-10.4); MONOCYTE # 0.9 10^3/ul (0.3-0.9); MONOCYTES % 5.5 % (0.0-11.0); NEUTROPHIL # 12.7 10^3/ul (1.6-7.5); NEUTROPHILS % 78.1 % (39.0-77.0); PLATELET COUNT 196 10^3/UL (140-415); RED BLOOD COUNT 3.76 10^6/ul (4.20-5.40); RED CELL DISTRIBUTION WIDTH 22.1 % (11.5-14.5); WHITE BLOOD COUNT 16.3 10^3/ul (4.8-10.8)
[2017-09-08 06:49] LABS: POSITIVE DIFF @See below
[2017-09-08 07:01] LABS: CALCIUM 8.2 mg/dl (8.4-10.2); CREATININE 0.44 mg/dl (0.44-1.00); MAGNESIUM 1.7 mg/dl (1.7-2.5); PHOSPHORUS 3.6 mg/dl (2.5-4.9)
[2017-09-08 07:28] VITALS: BP 117/69; RESP 18
[2017-09-08] MEDS: INSULIN ASPART [NOVOLOG] 3 ML PEN SC SCH ×4 (07:52→21:01)
[2017-09-08] MEDS: DEXAMETHASONE 4 MG TAB PO SCH ×2 (08:02→20:47)
[2017-09-08] MEDS: FAMOTIDINE 20 MG TAB PO SCH ×2 (08:02→20:47)
[2017-09-08] MEDS: NYSTATIN 30 GM POWDER BTL TOP SCH ×2 (08:02→20:53)
[2017-09-08] MEDS: TAMOXIFEN 10 MG TAB PO SCH (08:04)
--- NOTE | 2017-09-08 09:01 | CONS ---
Date/Time of Note Date/Time of Note DATE: 09/08/17 TIME: 08:58 Assessment/Plan Assessment/Plan Chief Complaint/Hosp Course #Her2+/ER+/CA+ metastatic breast ca -pt is non compliant and when she receives therapy, she is quite responsive to therapy -therefore at this time, although she has terminal disease, there are still many more treatment options which she could benefit from -given her Brain mets, I would consider a combination of Xeloda and Lapatinib which can penetrate the blood brain barrier -once she stabilizes can restart Tamoxifen as well #Pleural Effusion with superimposed infection -pt is s/p thoracentesis -will need to either remove pleurex catheter or adjust it -continue antibiotics for infection at catheter site oer ID #Brain Mets -pt is s/p resection -pt to start WBRT with Dr. Ybarra today Problems: Consultation Date/Type/Reason Admit Date/Time Sep 05, 2017 at 18:29 Initial Consult Date 09/07/17 Type of Consultation: Oncology Reason for Consultation metastatic breast cancer Referring Provider: MINDY NEGRON 24 HR Interval Summary Free Text/Dictation pt doing well this morning. no fevers. to start XRT today Exam/Review of Systems Vital Signs Vitals Vital Signs Date Time Temp Pulse Resp B/P Pulse Ox O2 Delivery O2 Flow Rate FiO2 09/08/17 07:28 98.0 59 18 117/69 96 09/06/17 20:00 Nasal Cannula 09/06/17 08:00 2.0 Intake and Output 09/07/17 09/07/17 09/08/17 15:00 23:00 07:00 Intake Total 550 ml 1540 ml Output Total 700 ml Balance 550 ml 840 ml Exam Constitutional: alert, oriented Psych: no complaints Head: atraumatic, normocephalic Eyes: nl conjunctiva ENMT: nl external ears & nose Neck: non-tender, supple Respiratory: diminished breath sounds, other (pleurex catheter in place) Cardiovascular: regular rate and rhythm Gastrointestinal: soft Musculoskeletal: nl extremities to inspection Results Result Diagram: 09/08/1719 09/08/1719 Results 24 hrs Laboratory Tests Test 09/07/17 12:19 09/07/17 17:25 09/07/17 20:43 09/08/17 01:11 Bedside Glucose 105 140 188 182 Test 09/08/17 06:19 09/08/17 07:47 White Blood Count 16.3 H Red Blood Count 3.76 L Hemoglobin 8.4 L Hematocrit 27.5 L Mean Corpuscular Volume 73.1 L Mean Corpuscular Hemoglobin 22.3 L Mean Corpuscular Hemoglobin Concent 30.5 L Red Cell Distribution Width 22.1 H Platelet Count 196 Mean Platelet Volume 8.9 Neutrophils % 78.1 H Lymphocytes % 10.8 L Monocytes % 5.5 Eosinophils % 0.0 Basophils % 0.1 Nucleated Red Blood Cells % 0.0 Neutrophils # 12.7 H Lymphocytes # 1.8 Monocytes # 0.9 Eosinophils # 0.0 Basophils # 0.0 Nucleated Red Blood Cells # 0.0 Sodium Level 134 L Potassium Level 4.0 Chloride Level 105 Carbon Dioxide Level 25 Anion Gap 8 Blood Urea Nitrogen 17 Creatinine 0.44 Glucose Level 144 Calcium Level 8.2 L Phosphorus Level 3.6 Magnesium Level 1.7 Bedside Glucose 138 Medications Medications Current Medications Dexamethasone (Decadron) 4 mg BID PO Last administered on 09/08/17 08:02; Admin Dose 4 MG; Start 09/05/17 at 21:00 Docusate Sodium (Colace) 200 mg QHS PO Last administered on 09/07/17 20:54; Admin Dose 200 MG; Start 09/05/17 at 21:00 Ondansetron HCl (Zofran Inj) 4 mg Q6H PRN IV NAUSEA AND/OR VOMITING; Start at 21:00 Acetaminophen (Tylenol Tab) 650 mg Q6H PRN PO PAIN LEVEL 1-3 OR FEVER; Start 09/05/17 at 21:00 Oxycodone/ Acetaminophen (Percocet (5/ 325)) 1 tab Q6H PRN PO MODERATE PAIN LEVEL 4-6; Start 09/05/17 at 21:00 Morphine Sulfate (morphine) 2 mg Q4H PRN IV SEVERE PAIN LEVEL 7-10; Start at 21:00 Docusate Sodium (Colace) 100 mg Q12H PRN PO CONSTIPATION; Start 09/05/17 at 21 :00 Magnesium Hydroxide (Milk Of Mag) 30 ml DAILY PRN PO CONSTIPATION; Start 09/05 at 21:00 Famotidine (Pepcid) 20 mg Q12 PO Last administered on 09/08/17 08:02; Admin Dose 20 MG; Start 09/05/17 at 21:00 Albuterol (Proventil 0.083% (Neb)) 2.5 mg Q2 PRN HHN SHORTNESS OF BREATH; Start 09/05/17 at 21:00 Miscellaneous Information 1 ea NOTE XX ; Start 09/05/17 at 21:30 Glucose (Glutose) 15 gm Q15M PRN PO DECREASED GLUCOSE; Start 09/05/17 at 21:30 Glucose (Glutose) 22.5 gm Q15M PRN PO DECREASED GLUCOSE; Start 09/05/17 at 21: 30 Dextrose (D50w Syringe) 25 ml Q15M PRN IV DECREASED GLUCOSE; Start 09/05/17 at 21:30 Dextrose (D50w Syringe) 50 ml Q15M PRN IV DECREASED GLUCOSE; Start 09/05/17 at 21:30 Glucagon (Glucagen) 1 mg Q15M PRN IM DECREASED GLUCOSE; Start 09/05/17 at 21: 30 Glucose (Glutose) 15 gm Q15M PRN BUCCAL DECREASED GLUCOSE; Start 09/05/17 at 21:30 Nystatin (Nystatin Powder) 1 applic BID TOP Last administered on 09/08/17 08: 02; Admin Dose 1 APPLIC; Start 09/06/17 at 09:00 Tamoxifen Citrate (Nolvadex) 20 mg DAILY PO Last administered on 09/08/17 08: 04; Admin Dose 20 MG; Start 09/06/17 at 13:00 Diagnostic Test (Pha) 1 ea 1 ea 02 XX Last administered on 09/08/17 02:58; Admin Dose 1 EA; Start 09/07/17 at 02:00 Vancomycin HCl/ Sodium Chloride (Vancocin/NS) 250 ml @ 83.333 mls/ hr Q12H IVPB Last administered on 09/08/17 05:52; Admin Dose 83.333 MLS/HR; Start at 05:00 ANTWON DYE M.D. Sep 08, 2017 09:01
--- NOTE | 2017-09-08 10:54 | CONS ---
Date/Time of Note Date/Time of Note DATE: 09/08/17 TIME: 10:53 Consult Date/Type/Reason Admit Date/Time Sep 05, 2017 at 18:29 Initial Consult Date 09/06/17 Type of Consultation: Pulmonary Ordering Provider: MINDY NEGRON Subjective Patient remains stable no events overnight. CT chest shows loculated right pleural effusion. Objective Vital Signs Date Time Temp Pulse Resp B/P Pulse Ox O2 Delivery O2 Flow Rate FiO2 09/08/17 07:28 98.0 59 18 117/69 96 09/06/17 20:00 Nasal Cannula 09/06/17 08:00 2.0 Intake and Output 09/07/17 09/07/17 09/08/17 15:00 23:00 07:00 Intake Total 550 ml 1540 ml Output Total 700 ml Balance 550 ml 840 ml Exam NERAL: VITAL SIGNS: per chart NECK: Supple. No JVD or lymphadenopathy. CARDIAC EXAM: S1, S2. No added sounds or murmurs. CHEST: Diminished air entry right lung. ABDOMEN: Soft, nontender. No guarding or rebound. EXTREMITIES: No cyanosis, clubbing or edema. NEUROLOGIC: Generalized weakness. No focal deficits. Results/Medications Result Diagram: 09/08/1761809/08/1719 Results 24 hrs Laboratory Tests Test 09/07/17 12:19 09/07/17 17:25 09/07/17 20:43 09/08/17 01:11 Bedside Glucose 105 140 188 182 Test 09/08/17 06:19 09/08/17 07:47 White Blood Count 16.3 H Red Blood Count 3.76 L Hemoglobin 8.4 L Hematocrit 27.5 L Mean Corpuscular Volume 73.1 L Mean Corpuscular Hemoglobin 22.3 L Mean Corpuscular Hemoglobin Concent 30.5 L Red Cell Distribution Width 22.1 H Platelet Count 196 Mean Platelet Volume 8.9 Neutrophils % 78.1 H Lymphocytes % 10.8 L Monocytes % 5.5 Eosinophils % 0.0 Basophils % 0.1 Nucleated Red Blood Cells % 0.0 Neutrophils # 12.7 H Lymphocytes # 1.8 Monocytes # 0.9 Eosinophils # 0.0 Basophils # 0.0 Nucleated Red Blood Cells # 0.0 Sodium Level 134 L Potassium Level 4.0 Chloride Level 105 Carbon Dioxide Level 25 Anion Gap 8 Blood Urea Nitrogen 17 Creatinine 0.44 Glucose Level 144 Calcium Level 8.2 L Phosphorus Level 3.6 Magnesium Level 1.7 Bedside Glucose 138 Medications Current Medications Dexamethasone (Decadron) 4 mg BID PO Last administered on 09/08/17 08:02; Admin Dose 4 MG; Start 09/05/17 at 21:00 Docusate Sodium (Colace) 200 mg QHS PO Last administered on 09/07/17 20:54; Admin Dose 200 MG; Start 09/05/17 at 21:00 Ondansetron HCl (Zofran Inj) 4 mg Q6H PRN IV NAUSEA AND/OR VOMITING; Start at 21:00 Acetaminophen (Tylenol Tab) 650 mg Q6H PRN PO PAIN LEVEL 1-3 OR FEVER; Start 09/05/17 at 21:00 Oxycodone/ Acetaminophen (Percocet (5/ 325)) 1 tab Q6H PRN PO MODERATE PAIN LEVEL 4-6; Start 09/05/17 at 21:00 Morphine Sulfate (morphine) 2 mg Q4H PRN IV SEVERE PAIN LEVEL 7-10; Start at 21:00 Docusate Sodium (Colace) 100 mg Q12H PRN PO CONSTIPATION; Start 09/05/17 at 21 :00 Magnesium Hydroxide (Milk Of Mag) 30 ml DAILY PRN PO CONSTIPATION; Start 09/05 at 21:00 Famotidine (Pepcid) 20 mg Q12 PO Last administered on 09/08/17 08:02; Admin Dose 20 MG; Start 09/05/17 at 21:00 Albuterol (Proventil 0.083% (Neb)) 2.5 mg Q2 PRN HHN SHORTNESS OF BREATH; Start 09/05/17 at 21:00 Miscellaneous Information 1 ea NOTE XX ; Start 09/05/17 at 21:30 Glucose (Glutose) 15 gm Q15M PRN PO DECREASED GLUCOSE; Start 09/05/17 at 21:30 Glucose (Glutose) 22.5 gm Q15M PRN PO DECREASED GLUCOSE; Start 09/05/17 at 21: 30 Dextrose (D50w Syringe) 25 ml Q15M PRN IV DECREASED GLUCOSE; Start 09/05/17 at 21:30 Dextrose (D50w Syringe) 50 ml Q15M PRN IV DECREASED GLUCOSE; Start 09/05/17 at 21:30 Glucagon (Glucagen) 1 mg Q15M PRN IM DECREASED GLUCOSE; Start 09/05/17 at 21: 30 Glucose (Glutose) 15 gm Q15M PRN BUCCAL DECREASED GLUCOSE; Start 09/05/17 at 21:30 Nystatin (Nystatin Powder) 1 applic BID TOP Last administered on 09/08/17 08: 02; Admin Dose 1 APPLIC; Start 09/06/17 at 09:00 Tamoxifen Citrate (Nolvadex) 20 mg DAILY PO Last administered on 09/08/17 08: 04; Admin Dose 20 MG; Start 09/06/17 at 13:00 Diagnostic Test (Pha) 1 ea 1 ea 02 XX Last administered on 09/08/17 02:58; Admin Dose 1 EA; Start 09/07/17 at 02:00 Vancomycin HCl/ Sodium Chloride (Vancocin/NS) 250 ml @ 83.333 mls/ hr Q12H IVPB Last administered on 09/08/17 05:52; Admin Dose 83.333 MLS/HR; Start at 05:00 Assessment/Plan Chief Complaint/Hosp Course Assessment 1. Metastatic breast cancer with recurrent right pleural effusion. Cultures growing gram-positive cocci consistent with staph aureus. 2. Pleurx catheter site infection and likely tube displacement. Plan 1. CT chest trace loculated pleural effusion possible empyema in addition to malignant effusion. 2. Radiology to replace Pleurx catheter in appropriate pleural space. 3. Continue antibiotic coverage for staph infection. She will likely require decortication given empyema and loculated effusion. Problems: MARTINEZ MASCORRO MD, [facility] Sep 08, 2017 10:54
--- NOTE | 2017-09-08 12:56 | PN ---
DATE: 09/08/2017 SUBJECTIVE: Patient is awake, feels good, looks comfortable. Denies pain, no fevers. LABORATORIES: WBC today 16.3, platelets 196, neutrophils 78.1, BUN 17, creatinine 0.44. MICROBIOLOGY: Pleural fluid culture grew oxacillin-sensitive Staphylococcus aureus, susceptible to majority antibiotics resistant to penicillin G. PHYSICAL EXAMINATION: GENERAL: This is an obese, well-developed, middle-aged woman who is awake, in no distress. HEENT: Head atraumatic, normocephalic. Sclerae anicteric. Buccal mucosa dry. NECK: Supple. CHEST: Rise symmetrical. Breath sounds diminished to bases. HEART: S1, S2. ABDOMEN: Soft, bowel tones present. EXTREMITIES: No cyanosis. ASSESSMENT: 1. Systemic inflammatory response syndrome. 2. Loculated right pleural effusion, possible empyema with pleural fluid culture growing oxacillin- sensitive Staphylococcus aureus. 3. Diabetes. 4. Metastatic breast carcinoma. 5. History of craniectomy from brain metastasis. PLAN: The patient remains stable. We are going to change antibiotics to levofloxacin and await car diothoracic surgery evaluation. The patient will likely require a video-assisted thoracotomy with d ecortication pending catheters discontinuation. Dictated By: ZULEYMA ALEX NURSE SPECIAL for FELISHA LU/AFIA Conf#: [id number] DID#: [id number]
--- NOTE | 2017-09-08 13:27 | PN ---
Date/Time of Note Date/Time of Note DATE: 09/08/17 TIME: 13:25 Assessment/Plan VTE Prophylaxis VTE Prophylaxis Intervention: ambulation Lines/Catheters IV Catheter Type (from [facility]): Peripheral IV Assessment/Plan Chief Complaint/Hosp Course Patient is a 39-year-old female with a past medical history of metastatic breast cancer with metastases to the liver and brain who presents from [facility] for malfunctioning Pleurx catheter. Assessment and plan Dysfunctional Pleurx catheter Cellulitis, area around catheter empyema?, staph aureus. Metastatic breast cancer, lung, liver, brain Diabetes mellitus Obesity Status post craniectomy for brain metastases -Continue Decadron and tamoxifen -radiation therapy today and again tomorrow -Ultrasound-guided thoracentesis performed, cultures showing staph aureus -ID consulted, abx per ID, to order PICC if needed -Pulmonology consulted for malfunctioning Pleurx catheter, CT noted, CT surgery consulted, Dr. Estrada for possible VATS/pleurodesis -Continue home meds as tolerated -PT OT DISPO: -IV abx, ?loculated effusion, ?VATS, Dispo back to rehab once stable Problems: Subjective 24 Hr Interval Summary Free Text/Dictation no new issues, tolerated radiation therapy well. Exam/Review of Systems Vital Signs Vitals Vital Signs Date Time Temp Pulse Resp B/P Pulse Ox O2 Delivery O2 Flow Rate FiO2 09/08/17 07:28 98.0 59 18 117/69 96 09/06/17 20:00 Nasal Cannula 09/06/17 08:00 2.0 Intake and Output 09/07/17 09/07/17 09/08/17 15:00 23:00 07:00 Intake Total 550 ml 1540 ml Output Total 700 ml Balance 550 ml 840 ml Exam Physical exam General: Patient is laying in bed and answers questions appropriately Mentation: Patient is alert and oriented 4, Head: R side craniectomy site healing well. no more chucho Eyes: EOMI, pupils reactive to light Neck: Supple, nontender, midline Respiratory: decreased lung sounds on the R Cardiovascular: regular rate, no obvious murmurs Gastrointestinal: non-tender to palpation, bowel sounds heard. Neurological: Moves all extremities spontaneously Skin: erythematous skin around pleurx cath site, leaking catheter Results Result Diagram: 10/27/17 0619 10/27/17 0619 Results 24 hrs Laboratory Tests Test 09/07/17 17:25 09/07/17 20:43 09/08/17 01:11 09/08/17 06:19 Bedside Glucose 140 188 182 White Blood Count 16.3 H Red Blood Count 3.76 L Hemoglobin 8.4 L Hematocrit 27.5 L Mean Corpuscular Volume 73.1 L Mean Corpuscular Hemoglobin 22.3 L Mean Corpuscular Hemoglobin Concent 30.5 L Red Cell Distribution Width 22.1 H Platelet Count 196 Mean Platelet Volume 8.9 Neutrophils % 78.1 H Lymphocytes % 10.8 L Monocytes % 5.5 Eosinophils % 0.0 Basophils % 0.1 Nucleated Red Blood Cells % 0.0 Neutrophils # 12.7 H Lymphocytes # 1.8 Monocytes # 0.9 Eosinophils # 0.0 Basophils # 0.0 Nucleated Red Blood Cells # 0.0 Sodium Level 134 L Potassium Level 4.0 Chloride Level 105 Carbon Dioxide Level 25 Anion Gap 8 Blood Urea Nitrogen 17 Creatinine 0.44 Glucose Level 144 Calcium Level 8.2 L Phosphorus Level 3.6 Magnesium Level 1.7 Test 09/08/17 07:47 09/08/17 11:19 Bedside Glucose 138 179 Medications Medications Current Medications Dexamethasone (Decadron) 4 mg BID PO Last administered on 09/08/17 08:02; Admin Dose 4 MG; Start 09/05/17 at 21:00 Docusate Sodium (Colace) 200 mg QHS PO Last administered on 09/07/17 20:54; Admin Dose 200 MG; Start 09/05/17 at 21:00 Ondansetron HCl (Zofran Inj) 4 mg Q6H PRN IV NAUSEA AND/OR VOMITING; Start at 21:00 Acetaminophen (Tylenol Tab) 650 mg Q6H PRN PO PAIN LEVEL 1-3 OR FEVER; Start 09/05/17 at 21:00 Oxycodone/ Acetaminophen (Percocet (5/ 325)) 1 tab Q6H PRN PO MODERATE PAIN LEVEL 4-6; Start 09/05/17 at 21:00 Morphine Sulfate (morphine) 2 mg Q4H PRN IV SEVERE PAIN LEVEL 7-10; Start at 21:00 Docusate Sodium (Colace) 100 mg Q12H PRN PO CONSTIPATION; Start 09/05/17 at 21 :00 Magnesium Hydroxide (Milk Of Mag) 30 ml DAILY PRN PO CONSTIPATION; Start 09/05 at 21:00 Famotidine (Pepcid) 20 mg Q12 PO Last administered on 09/08/17 08:02; Admin Dose 20 MG; Start 09/05/17 at 21:00 Albuterol (Proventil 0.083% (Neb)) 2.5 mg Q2 PRN HHN SHORTNESS OF BREATH; Start 09/05/17 at 21:00 Miscellaneous Information 1 ea NOTE XX ; Start 09/05/17 at 21:30 Glucose (Glutose) 15 gm Q15M PRN PO DECREASED GLUCOSE; Start 09/05/17 at 21:30 Glucose (Glutose) 22.5 gm Q15M PRN PO DECREASED GLUCOSE; Start 09/05/17 at 21: 30 Dextrose (D50w Syringe) 25 ml Q15M PRN IV DECREASED GLUCOSE; Start 09/05/17 at 21:30 Dextrose (D50w Syringe) 50 ml Q15M PRN IV DECREASED GLUCOSE; Start 09/05/17 at 21:30 Glucagon (Glucagen) 1 mg Q15M PRN IM DECREASED GLUCOSE; Start 09/05/17 at 21: 30 Glucose (Glutose) 15 gm Q15M PRN BUCCAL DECREASED GLUCOSE; Start 09/05/17 at 21:30 Nystatin (Nystatin Powder) 1 applic BID TOP Last administered on 09/08/17 08: 02; Admin Dose 1 APPLIC; Start 09/06/17 at 09:00 Tamoxifen Citrate (Nolvadex) 20 mg DAILY PO Last administered on 09/08/17 08: 04; Admin Dose 20 MG; Start 09/06/17 at 13:00 Diagnostic Test (Pha) 1 ea 1 ea 02 XX Last administered on 09/08/17 02:58; Admin Dose 1 EA; Start 09/07/17 at 02:00 Vancomycin HCl/ Sodium Chloride (Vancocin/NS) 250 ml @ 83.333 mls/ hr Q12H IVPB Last administered on 09/08/17 05:52; Admin Dose 83.333 MLS/HR; Start at 05:00 Miscellaneous Information VANCO TROUGH @ 0,400 ON ... ONCE ONCE XX ; Start at 04:00; Stop 09/09/17 at 04:01 Ceftriaxone Sodium (Rocephin) 50 ml @ 100 mls/hr Q24H IVPB ; Start 09/08/17 at 14:00 JUAN MOTLEY Sep 08, 2017 13:27
[2017-09-08] MEDS: CEFTRIAXONE 1 GM/50 ML (PMX) 50 ML IVPB SCH (13:44)
[2017-09-08 14:14] VITALS: BP 149/85; RESP 18
[2017-09-08 19:49] VITALS: BP 121/67; RESP 18
[2017-09-08] MEDS: DOCUSATE SODIUM 100 MG CAP PO SCH (20:47)
[2017-09-09 02:00] VITALS: BP 108/55; PULSE 70; RESP 18
[2017-09-09] MEDS: ACCU-CHEK XX SCH (02:04)
--- NOTE | 2017-09-09 04:16 | CONS ---
DATE OF ADMISSION: 09/05/2017 DATE OF CONSULTATION: REASON FOR CONSULTATION: Pleural effusion. HISTORY OF PRESENT ILLNESS: This is a 47-year-old female with a history of malignant pleural effusi on from breast cancer, underwent a PleurX catheter placement, now is being admitted because of a loc ulated pleural effusion. The patient underwent a thoracentesis, subsequently had a CT of the chest which showed increase in the large loculated effusion on the right side with no pneumothorax. PAST MEDICAL HISTORY: Hypertension. hyperlipidemia, breast cancer. PAST SURGICAL HISTORY: PleurX catheter and mastectomy. ALLERGIES: NONE. SOCIAL HISTORY: No smoking, drinking or drug use. MEDICATIONS: List reviewed. PHYSICAL EXAMINATION: VITAL SIGNS: Blood pressure is 149/85, pulse is 75, respirations 18, saturation ____. CARDIOVASCULAR: Regular rate and rhythm. LUNGS: Have diminished breath sounds on the right. ABDOMEN: Soft, nontender, nondistended. EXTREMITIES: Warm. No clubbing, cyanosis, or edema. LABORATORY VALUES: Hemoglobin 8.4, white count 16.3, platelet count 196 and the creatinine is 0.44. IMPRESSION: Right loculated pleural effusion. RECOMMENDATIONS: We will proceed with video-assisted thoracic surgery and decortication with pleuro desis. Discussed with the patient. Dictated By: DEVIKA LEMA/AFIA Conf#: [id number] DID#: [id number]
[2017-09-09 05:16] LABS: ABNORMAL IP MESSAGE 1; BASOPHILS % 0.1 % (0.0-2.0); HEMATOCRIT 28.1 % (37.0-47.0); HEMOGLOBIN 8.4 g/dl (12.0-16.0); LYMPHOCYTES % 10.3 % (15.0-51.0); MEAN CORPUSCULAR HEMOGLOBIN 22.2 pg (29.0-33.0); MEAN CORPUSCULAR HGB CONC 29.9 g/dl (32.0-37.0); MEAN CORPUSCULAR VOLUME 74.3 fl (82.0-101.0); MEAN PLATELET VOLUME 8.7 fl (7.4-10.4); MONOCYTES % 5.3 % (0.0-11.0); NEUTROPHIL # 14.7 10^3/ul (1.6-7.5); NEUTROPHILS % 76.9 % (39.0-77.0); PLATELET COUNT 200 10^3/UL (140-415); RED BLOOD COUNT 3.78 10^6/ul (4.20-5.40); RED CELL DISTRIBUTION WIDTH 22.3 % (11.5-14.5); WHITE BLOOD COUNT 19.1 10^3/ul (4.8-10.8)
[2017-09-09 05:35] LABS: POSITIVE DIFF @See below
[2017-09-09] MEDS: VANCOMYCIN 1.5 GM in SOD CHLORIDE 0.9% 250 ML IVPB SCH (06:16)
[2017-09-09 07:20] LABS: CALCIUM 8.1 mg/dl (8.4-10.2); CREATININE 0.48 mg/dl (0.44-1.00); MAGNESIUM 1.9 mg/dl (1.7-2.5); PHOSPHORUS 3.3 mg/dl (2.5-4.9); POTASSIUM 4.5 mmol/L (3.5-5.1)
[2017-09-09 07:39] VITALS: BP 109/58; RESP 16
[2017-09-09] MEDS: INSULIN ASPART [NOVOLOG] 3 ML PEN SC SCH ×4 (08:15→21:16)
[2017-09-09] MEDS: FAMOTIDINE 20 MG TAB PO SCH ×2 (09:12→21:11)
[2017-09-09] MEDS: DEXAMETHASONE 4 MG TAB PO SCH ×2 (09:12→21:10)
[2017-09-09] MEDS: TAMOXIFEN 10 MG TAB PO SCH (09:17)
[2017-09-09] MEDS: NYSTATIN 30 GM POWDER BTL TOP SCH ×2 (10:57→21:18)
--- NOTE | 2017-09-09 11:28 | CONS ---
Date/Time of Note Date/Time of Note DATE: 09/09/17 TIME: 11:27 Consult Date/Type/Reason Admit Date/Time Sep 05, 2017 at 18:29 Initial Consult Date 09/06/17 Type of Consultation: Pulmonary Ordering Provider: MINDY NEGRON Subjective Patient stable this morning. Placed on respiratory isolation. Objective Vital Signs Date Time Temp Pulse Resp B/P Pulse Ox O2 Delivery O2 Flow Rate FiO2 09/09/17 07:39 98.1 68 16 109/58 97 09/09/17 02:00 Room Air 09/06/17 08:00 2.0 Intake and Output 09/08/17 09/08/17 09/09/17 15:00 23:00 07:00 Intake Total 250 ml 1500.000 ml 590 ml Balance 250 ml 1500.000 ml 590 ml Exam VITAL SIGNS: per chart NECK: Supple. No JVD or lymphadenopathy. CARDIAC EXAM: S1, S2. No added sounds or murmurs. CHEST: Diminished air entry right lung. ABDOMEN: Soft, nontender. No guarding or rebound. EXTREMITIES: No cyanosis, clubbing or edema. NEUROLOGIC: Generalized weakness. No focal deficits. Results/Medications Result Diagram: 09/09/17 0415 09/09/17 0414 Results 24 hrs Laboratory Tests Test 09/08/17 17:00 09/08/17 20:45 09/09/17 01:51 09/09/17 04:14 Bedside Glucose 151 184 210 Sodium Level 137 Potassium Level 4.5 Chloride Level 105 Carbon Dioxide Level 24 Anion Gap 13 Blood Urea Nitrogen 21 H Creatinine 0.48 Glucose Level 184 Calcium Level 8.1 L Phosphorus Level 3.3 Magnesium Level 1.9 Test 09/09/17 04:15 09/09/17 08:06 White Blood Count 19.1 H Red Blood Count 3.78 L Hemoglobin 8.4 L Hematocrit 28.1 L Mean Corpuscular Volume 74.3 L Mean Corpuscular Hemoglobin 22.2 L Mean Corpuscular Hemoglobin Concent 29.9 L Red Cell Distribution Width 22.3 H Platelet Count 200 Mean Platelet Volume 8.7 Neutrophils % 76.9 Lymphocytes % 10.3 L Monocytes % 5.3 Eosinophils % 0.0 Basophils % 0.1 Nucleated Red Blood Cells % 0.0 Neutrophils # 14.7 H Lymphocytes # 2.0 Monocytes # 1.0 H Eosinophils # 0.0 Basophils # 0.0 Nucleated Red Blood Cells # 0.0 Vancomycin Level Trough 6.2 L Bedside Glucose 135 Medications Current Medications Dexamethasone (Decadron) 4 mg BID PO Last administered on 09/09/17 09:12; Admin Dose 4 MG; Start 09/05/17 at 21:00 Docusate Sodium (Colace) 200 mg QHS PO Last administered on 09/08/17 20:47; Admin Dose 200 MG; Start 09/05/17 at 21:00 Ondansetron HCl (Zofran Inj) 4 mg Q6H PRN IV NAUSEA AND/OR VOMITING; Start at 21:00 Acetaminophen (Tylenol Tab) 650 mg Q6H PRN PO PAIN LEVEL 1-3 OR FEVER; Start 09/05/17 at 21:00 Oxycodone/ Acetaminophen (Percocet (5/ 325)) 1 tab Q6H PRN PO MODERATE PAIN LEVEL 4-6; Start 09/05/17 at 21:00 Morphine Sulfate (morphine) 2 mg Q4H PRN IV SEVERE PAIN LEVEL 7-10; Start at 21:00 Docusate Sodium (Colace) 100 mg Q12H PRN PO CONSTIPATION; Start 09/05/17 at 21 :00 Magnesium Hydroxide (Milk Of Mag) 30 ml DAILY PRN PO CONSTIPATION; Start 09/05 at 21:00 Famotidine (Pepcid) 20 mg Q12 PO Last administered on 09/09/17 09:12; Admin Dose 20 MG; Start 09/05/17 at 21:00 Albuterol (Proventil 0.083% (Neb)) 2.5 mg Q2 PRN HHN SHORTNESS OF BREATH; Start 09/05/17 at 21:00 Miscellaneous Information 1 ea NOTE XX ; Start 09/05/17 at 21:30 Glucose (Glutose) 15 gm Q15M PRN PO DECREASED GLUCOSE; Start 09/05/17 at 21:30 Glucose (Glutose) 22.5 gm Q15M PRN PO DECREASED GLUCOSE; Start 09/05/17 at 21: 30 Dextrose (D50w Syringe) 25 ml Q15M PRN IV DECREASED GLUCOSE; Start 09/05/17 at 21:30 Dextrose (D50w Syringe) 50 ml Q15M PRN IV DECREASED GLUCOSE; Start 09/05/17 at 21:30 Glucagon (Glucagen) 1 mg Q15M PRN IM DECREASED GLUCOSE; Start 09/05/17 at 21: 30 Glucose (Glutose) 15 gm Q15M PRN BUCCAL DECREASED GLUCOSE; Start 09/05/17 at 21:30 Nystatin (Nystatin Powder) 1 applic BID TOP Last administered on 09/09/17 10: 57; Admin Dose 1 APPLIC; Start 09/06/17 at 09:00 Tamoxifen Citrate (Nolvadex) 20 mg DAILY PO Last administered on 09/09/17 09: 17; Admin Dose 20 MG; Start 09/06/17 at 13:00 Diagnostic Test (Pha) 1 ea 1 ea 02 XX Last administered on 09/09/17 02:04; Admin Dose 1 EA; Start 09/07/17 at 02:00 Ceftriaxone Sodium 50 ml @ 100 mls/hr Q24H IVPB Last administered on 13:44; Admin Dose 100 MLS/HR; Start 09/08/17 at 14:00 Vancomycin HCl/ Sodium Chloride (Vancocin/NS) 250 ml @ 83.333 mls/ hr Q8H IVPB ; Start 09/09/17 at 16:00 Assessment/Plan Chief Complaint/Hosp Course Assessment 1. Metastatic breast cancer with recurrent right pleural effusion. Cultures growing gram-positive cocci consistent with staph aureus. 2. Loculated pleural effusion possible empyema 3. [employer] metastasis currently receiving steroids and radiation therapy 4. Placed in respiratory isolation rule out TB will discuss with primary team Plan 1. CT chest trace loculated pleural effusion possible empyema in addition to malignant effusion. 2. Radiology to replace Pleurx catheter in appropriate pleural space. 3. Continue antibiotic coverage for staph infection. She will likely require decortication given empyema and loculated effusion. Problems: MARTINEZ MASCORRO MD, [facility] Sep 09, 2017 11:28
--- NOTE | 2017-09-09 12:21 | PN ---
Date/Time of Note Date/Time of Note DATE: 09/09/17 TIME: 12:19 Assessment/Plan VTE Prophylaxis VTE Prophylaxis Intervention: ambulation Lines/Catheters IV Catheter Type (from [facility] [place] Assessment/Plan Chief Complaint/Hosp Course Patient is a 39-year-old female with a past medical history of metastatic breast cancer with metastases to the liver and brain who presents from [facility] for malfunctioning Pleurx catheter. Assessment and plan Dysfunctional Pleurx catheter Cellulitis, area around catheter empyema?, staph aureus. Metastatic breast cancer, lung, liver, brain Diabetes mellitus Obesity Status post craniectomy for brain metastases -Continue Decadron and tamoxifen -radiation therapy today to resume on monday -Ultrasound-guided thoracentesis performed, cultures showing staph aureus -ID consulted, abx per ID, to order PICC if needed -Pulmonology consulted for malfunctioning Pleurx catheter, CT noted, CT surgery consulted, Dr. Estrada for VATS and pleurodesis sometime upcoming week based on schedule -Continue home meds as tolerated -PT OT DISPO: -IV abx, ?loculated effusion, VATS/pleurodesis this upcoming week, Dispo back to rehab once stable Problems: Subjective 24 Hr Interval Summary Free Text/Dictation no radiation yesterday, unknown why appt was cancelled Exam/Review of Systems Vital Signs Vitals Vital Signs Date Time Temp Pulse Resp B/P Pulse Ox O2 Delivery O2 Flow Rate FiO2 09/09/17 07:39 98.1 68 16 109/58 97 09/09/17 02:00 Room Air 09/06/17 08:00 2.0 Intake and Output 09/08/17 09/08/17 09/09/17 15:00 23:00 07:00 Intake Total 250 ml 1500.000 ml 590 ml Balance 250 ml 1500.000 ml 590 ml Exam Physical exam General: Patient is laying in bed and answers questions appropriately Mentation: Patient is alert and oriented 4, Head: R side craniectomy site healing well. no more chucho Eyes: EOMI, pupils reactive to light Neck: Supple, nontender, midline Respiratory: decreased lung sounds on the R Cardiovascular: regular rate, no obvious murmurs Gastrointestinal: non-tender to palpation, bowel sounds heard. Neurological: Moves all extremities spontaneously Skin: erythematous skin around pleurx cath site, leaking catheter Results Result Diagram: 09/09/17 0415 09/09/17 0414 Results 24 hrs Laboratory Tests Test 09/08/17 17:00 09/08/17 20:45 09/09/17 01:51 09/09/17 04:14 Bedside Glucose 151 184 210 Sodium Level 137 Potassium Level 4.5 Chloride Level 105 Carbon Dioxide Level 24 Anion Gap 13 Blood Urea Nitrogen 21 H Creatinine 0.48 Glucose Level 184 Calcium Level 8.1 L Phosphorus Level 3.3 Magnesium Level 1.9 Test 09/09/17 04:15 09/09/17 08:06 09/09/17 12:01 White Blood Count 19.1 H Red Blood Count 3.78 L Hemoglobin 8.4 L Hematocrit 28.1 L Mean Corpuscular Volume 74.3 L Mean Corpuscular Hemoglobin 22.2 L Mean Corpuscular Hemoglobin Concent 29.9 L Red Cell Distribution Width 22.3 H Platelet Count 200 Mean Platelet Volume 8.7 Neutrophils % 76.9 Lymphocytes % 10.3 L Monocytes % 5.3 Eosinophils % 0.0 Basophils % 0.1 Nucleated Red Blood Cells % 0.0 Neutrophils # 14.7 H Lymphocytes # 2.0 Monocytes # 1.0 H Eosinophils # 0.0 Basophils # 0.0 Nucleated Red Blood Cells # 0.0 Vancomycin Level Trough 6.2 L Bedside Glucose 135 117 Medications Medications Current Medications Dexamethasone (Decadron) 4 mg BID PO Last administered on 09/09/17 09:12; Admin Dose 4 MG; Start 09/05/17 at 21:00 Docusate Sodium (Colace) 200 mg QHS PO Last administered on 09/08/17 20:47; Admin Dose 200 MG; Start 09/05/17 at 21:00 Ondansetron HCl (Zofran Inj) 4 mg Q6H PRN IV NAUSEA AND/OR VOMITING; Start at 21:00 Acetaminophen (Tylenol Tab) 650 mg Q6H PRN PO PAIN LEVEL 1-3 OR FEVER; Start 09/05/17 at 21:00 Oxycodone/ Acetaminophen (Percocet (5/ 325)) 1 tab Q6H PRN PO MODERATE PAIN LEVEL 4-6; Start 09/05/17 at 21:00 Morphine Sulfate (morphine) 2 mg Q4H PRN IV SEVERE PAIN LEVEL 7-10; Start at 21:00 Docusate Sodium (Colace) 100 mg Q12H PRN PO CONSTIPATION; Start 09/05/17 at 21 :00 Magnesium Hydroxide (Milk Of Mag) 30 ml DAILY PRN PO CONSTIPATION; Start 09/05 at 21:00 Famotidine (Pepcid) 20 mg Q12 PO Last administered on 09/09/17 09:12; Admin Dose 20 MG; Start 09/05/17 at 21:00 Albuterol (Proventil 0.083% (Neb)) 2.5 mg Q2 PRN HHN SHORTNESS OF BREATH; Start 09/05/17 at 21:00 Miscellaneous Information 1 ea NOTE XX ; Start 09/05/17 at 21:30 Glucose (Glutose) 15 gm Q15M PRN PO DECREASED GLUCOSE; Start 09/05/17 at 21:30 Glucose (Glutose) 22.5 gm Q15M PRN PO DECREASED GLUCOSE; Start 09/05/17 at 21: 30 Dextrose (D50w Syringe) 25 ml Q15M PRN IV DECREASED GLUCOSE; Start 09/05/17 at 21:30 Dextrose (D50w Syringe) 50 ml Q15M PRN IV DECREASED GLUCOSE; Start 09/05/17 at 21:30 Glucagon (Glucagen) 1 mg Q15M PRN IM DECREASED GLUCOSE; Start 09/05/17 at 21: 30 Glucose (Glutose) 15 gm Q15M PRN BUCCAL DECREASED GLUCOSE; Start 09/05/17 at 21:30 Nystatin (Nystatin Powder) 1 applic BID TOP Last administered on 09/09/17 10: 57; Admin Dose 1 APPLIC; Start 09/06/17 at 09:00 Tamoxifen Citrate (Nolvadex) 20 mg DAILY PO Last administered on 09/09/17 09: 17; Admin Dose 20 MG; Start 09/06/17 at 13:00 Diagnostic Test (Pha) 1 ea 1 ea 02 XX Last administered on 09/09/17 02:04; Admin Dose 1 EA; Start 09/07/17 at 02:00 Ceftriaxone Sodium 50 ml @ 100 mls/hr Q24H IVPB Last administered on 13:44; Admin Dose 100 MLS/HR; Start 09/08/17 at 14:00 Vancomycin HCl/ Sodium Chloride (Vancocin/NS) 250 ml @ 83.333 mls/ hr Q8H IVPB ; Start 09/09/17 at 16:00 JUAN MOTLEY Sep 09, 2017 12:21
[2017-09-09] MEDS: CEFTRIAXONE 1 GM/50 ML (PMX) 50 ML IVPB SCH (13:40)
[2017-09-09] MEDS ORDERED: VANCOMYCIN 1.5 GM in SOD CHLORIDE 0.9% 250 ML IVPB SCH (14:00)
[2017-09-09 14:01] VITALS: BP 131/70; RESP 18
[2017-09-09] MEDS: VANCOMYCIN 1.25 GM in SOD CHLORIDE 0.9% 250 ML IVPB SCH (15:59)
--- NOTE | 2017-09-09 16:24 | CONS ---
Date/Time of Note Date/Time of Note DATE: 09/09/17 TIME: 16:16 Assessment/Plan Assessment/Plan Chief Complaint/Hosp Course ID PROGRESS NOTE CURRENT ABX: TOTAL ABX DAY # 4 => Vanco IV + Ceftriaxone 24H INTERVAL SUMMARY * A/A/O, responsive, sitting up in bed, smiling, polite, good historian, VSS, NAD, without dyspnea on room air, no fevers * Morbid obesity * May: 09/06/17-1615 Source: THOR FLD Microbiology BODY FLUID CULTURE Final Organism 1 STAPHYLOCOCCUS AUREUS QUANTITY 2+ S AUREUS M.I.C. RX --------- --- CEFAZOLIN S CIPROFLOXACIN <=0.5 S CLINDAMYCIN <=0.25 S DOXYCYCLINE S ERYTHROMYCIN <=0.25 S LEVOFLOXACIN <=0.12 S OXACILLIN 0.5 S PENICILLIN-G >=0.5 R RIFAMPIN <=0.5 S VANCOMYCIN <=0.5 S TRIMETHOPRIM/SULFAMETHOXAZOLE <=10 S Physical Exam Physical Exam Constitutional: VSS, NAD, morbid obese, A/A/O x4, afebrile HEENT: Unremarkable Neck: Supple, full ROM Respiratory: Equal chest rise bilaterally, without dyspnea on observation, room air Cardiovascular: nl pulses, regular rate and rhythm Gastrointestinal: Soft, large pannus Extremities: Warm, no c/c/e ID ASSESSMENT 47 yo morbid obese F admit with: 1. Systemic inflammatory response syndrome. 2. Loculated right pleural effusion, possible empyema * s/p Thora w/ Pleural fluid culture grew oxacillin-sensitive Staphylococcus aureus, susceptible to majority antibiotics resistant to penicillin G. 3. Diabetes. 4. Metastatic breast carcinoma. 5. History of craniectomy from brain metastasis. (- )MRSA Nares INVASIVES: PIV ABX ALLERGIES: PCN CURRENT ABX: TOTAL ABX DAY # 4 => Vanco IV + Ceftriaxone ID RECOMMENDATIONS 1. Continue current ABX, tolerated Cephalosporin 2. Pending VATS . Problems: Consultation Date/Type/Reason Admit Date/Time Sep 05, 2017 at 18:29 Initial Consult Date 09/07/17 Type of Consultation: id Referring Provider: MINDY NEGRON Exam/Review of Systems Vital Signs Vitals Vital Signs Date Time Temp Pulse Resp B/P Pulse Ox O2 Delivery O2 Flow Rate FiO2 09/09/17 14:01 98.3 80 18 131/70 98 09/09/17 02:00 Room Air 09/06/17 08:00 2.0 Intake and Output 09/08/17 09/08/17 09/09/17 15:00 23:00 07:00 Intake Total 250 ml 1500.000 ml 590 ml Balance 250 ml 1500.000 ml 590 ml Results Result Diagram: 09/09/17 0415 09/09/17 0414 Results 24 hrs Laboratory Tests Test 09/08/17 17:00 09/08/17 20:45 09/09/17 01:51 09/09/17 04:14 Bedside Glucose 151 184 210 Sodium Level 137 Potassium Level 4.5 Chloride Level 105 Carbon Dioxide Level 24 Anion Gap 13 Blood Urea Nitrogen 21 H Creatinine 0.48 Glucose Level 184 Calcium Level 8.1 L Phosphorus Level 3.3 Magnesium Level 1.9 Test 09/09/17 04:15 09/09/17 08:06 09/09/17 12:01 White Blood Count 19.1 H Red Blood Count 3.78 L Hemoglobin 8.4 L Hematocrit 28.1 L Mean Corpuscular Volume 74.3 L Mean Corpuscular Hemoglobin 22.2 L Mean Corpuscular Hemoglobin Concent 29.9 L Red Cell Distribution Width 22.3 H Platelet Count 200 Mean Platelet Volume 8.7 Neutrophils % 76.9 Lymphocytes % 10.3 L Monocytes % 5.3 Eosinophils % 0.0 Basophils % 0.1 Nucleated Red Blood Cells % 0.0 Neutrophils # 14.7 H Lymphocytes # 2.0 Monocytes # 1.0 H Eosinophils # 0.0 Basophils # 0.0 Nucleated Red Blood Cells # 0.0 Vancomycin Level Trough 6.2 L Bedside Glucose 135 117 Medications Medications Current Medications Dexamethasone (Decadron) 4 mg BID PO Last administered on 09/09/17 09:12; Admin Dose 4 MG; Start 09/05/17 at 21:00 Docusate Sodium (Colace) 200 mg QHS PO Last administered on 09/08/17 20:47; Admin Dose 200 MG; Start 09/05/17 at 21:00 Ondansetron HCl (Zofran Inj) 4 mg Q6H PRN IV NAUSEA AND/OR VOMITING; Start at 21:00 Acetaminophen (Tylenol Tab) 650 mg Q6H PRN PO PAIN LEVEL 1-3 OR FEVER; Start 09/05/17 at 21:00 Oxycodone/ Acetaminophen (Percocet (5/ 325)) 1 tab Q6H PRN PO MODERATE PAIN LEVEL 4-6; Start 09/05/17 at 21:00 Morphine Sulfate (morphine) 2 mg Q4H PRN IV SEVERE PAIN LEVEL 7-10; Start at 21:00 Docusate Sodium (Colace) 100 mg Q12H PRN PO CONSTIPATION; Start 09/05/17 at 21 :00 Magnesium Hydroxide (Milk Of Mag) 30 ml DAILY PRN PO CONSTIPATION; Start 09/05 at 21:00 Famotidine (Pepcid) 20 mg Q12 PO Last administered on 09/09/17t 09:12; Admin Dose 20 MG; Start 09/05/17 at 21:00 Albuterol (Proventil 0.083% (Neb)) 2.5 mg Q2 PRN HHN SHORTNESS OF BREATH; Start 09/05/17 at 21:00 Miscellaneous Information 1 ea NOTE XX ; Start 09/05/17 at 21:30 Glucose (Glutose) 15 gm Q15M PRN PO DECREASED GLUCOSE; Start 09/05/17 at 21:30 Glucose (Glutose) 22.5 gm Q15M PRN PO DECREASED GLUCOSE; Start 09/05/17 at 21: 30 Dextrose (D50w Syringe) 25 ml Q15M PRN IV DECREASED GLUCOSE; Start 09/05/17 at 21:30 Dextrose (D50w Syringe) 50 ml Q15M PRN IV DECREASED GLUCOSE; Start 09/05/17 at 21:30 Glucagon (Glucagen) 1 mg Q15M PRN IM DECREASED GLUCOSE; Start 09/05/17 at 21: 30 Glucose (Glutose) 15 gm Q15M PRN BUCCAL DECREASED GLUCOSE; Start 09/05/17 at 21:30 Nystatin (Nystatin Powder) 1 applic BID TOP Last administered on 09/09/17t 10: 57; Admin Dose 1 APPLIC; Start 09/06/17 at 09:00 Tamoxifen Citrate (Nolvadex) 20 mg DAILY PO Last administered on 09/09/17 09: 17; Admin Dose 20 MG; Start 09/06/17 at 13:00 Diagnostic Test (Pha) 1 ea 1 ea 02 XX Last administered on 09/09/17 02:04; Admin Dose 1 EA; Start 09/07/17 at 02:00 Ceftriaxone Sodium 50 ml @ 100 mls/hr Q24H IVPB Last administered on 13:40; Admin Dose 100 MLS/HR; Start 09/08/17 at 14:00 Vancomycin HCl/ Sodium Chloride (Vancocin/NS) 250 ml @ 83.333 mls/ hr Q8H IVPB Last administered on 09/09/17 15:59; Admin Dose 83.333 MLS/HR; Start at 16:00 VIKY NARVAEZ NP Sep 09, 2017 16:24
[2017-09-09 19:41] VITALS: BP 121/72; RESP 22
[2017-09-09] MEDS: DOCUSATE SODIUM 100 MG CAP PO SCH (21:10)
[2017-09-10] MEDS: VANCOMYCIN 1.25 GM in SOD CHLORIDE 0.9% 250 ML IVPB SCH ×3 (00:16→16:30)
[2017-09-10] MEDS: ACCU-CHEK XX SCH (02:00)
[2017-09-10 02:29] VITALS: BP 125/67; RESP 22
[2017-09-10 06:44] LABS: ABNORMAL IP MESSAGE 1; BASOPHILS % 0.2 % (0.0-2.0); HEMATOCRIT 28.1 % (37.0-47.0); HEMOGLOBIN 8.1 g/dl (12.0-16.0); LYMPHOCYTES # 1.9 10^3/ul (0.8-2.9); LYMPHOCYTES % 9.7 % (15.0-51.0); MEAN CORPUSCULAR HEMOGLOBIN 21.5 pg (29.0-33.0); MEAN CORPUSCULAR HGB CONC 28.8 g/dl (32.0-37.0); MEAN CORPUSCULAR VOLUME 74.7 fl (82.0-101.0); MONOCYTES % 4.9 % (0.0-11.0); NEUTROPHIL # 15.3 10^3/ul (1.6-7.5); NEUTROPHILS % 76.9 % (39.0-77.0); PLATELET COUNT 214 10^3/UL (140-415); RED BLOOD COUNT 3.76 10^6/ul (4.20-5.40); RED CELL DISTRIBUTION WIDTH 22.5 % (11.5-14.5); WHITE BLOOD COUNT 19.9 10^3/ul (4.8-10.8)
[2017-09-10 06:48] LABS: POSITIVE DIFF @See below
[2017-09-10 07:11] LABS: CREATININE 0.47 mg/dl (0.44-1.00); MAGNESIUM 1.8 mg/dl (1.7-2.5); PHOSPHORUS 3.4 mg/dl (2.5-4.9); POTASSIUM 4.1 mmol/L (3.5-5.1)
[2017-09-10 08:07] VITALS: BP 118/56; RESP 18
[2017-09-10] MEDS: INSULIN ASPART [NOVOLOG] 3 ML PEN SC SCH ×4 (08:22→20:51)
[2017-09-10] MEDS: DEXAMETHASONE 4 MG TAB PO SCH ×2 (08:38→20:42)
[2017-09-10] MEDS: FAMOTIDINE 20 MG TAB PO SCH ×2 (08:38→20:42)
[2017-09-10] MEDS: TAMOXIFEN 10 MG TAB PO SCH (08:47)
[2017-09-10] MEDS: NYSTATIN 30 GM POWDER BTL TOP SCH ×2 (08:49→20:43)
--- NOTE | 2017-09-10 10:11 | CONS ---
Date/Time of Note Date/Time of Note DATE: 09/10/17 TIME: 10:09 Consult Date/Type/Reason Admit Date/Time Sep 05, 2017 at 18:29 Initial Consult Date 09/06/17 Type of Consultation: Pulmonary Ordering Provider: MINDY NEGRON Subjective Doing okay this morning. Mild dyspnea on exertion. Vital signs remained stable. Objective Vital Signs Date Time Temp Pulse Resp B/P Pulse Ox O2 Delivery O2 Flow Rate FiO2 09/10/17 08:07 98.2 87 18 118/56 96 09/09/17 02:00 Room Air 09/06/17 08:00 2.0 Intake and Output 09/09/17 09/09/17 09/10/17 15:00 23:00 07:00 Intake Total 50 ml 1450 ml Balance 50 ml 1450 ml Exam GENERAL: Well-developed lady comfortable at rest VITAL SIGNS: per chart NECK: Supple. No JVD or lymphadenopathy. CARDIAC EXAM: S1, S2. No added sounds or murmurs. CHEST: clear bilaterally, No added sounds, rales or wheezes ABDOMEN: Soft, nontender. No guarding or rebound. EXTREMITIES: No cyanosis, clubbing or edema. NEUROLOGIC: Generalized weakness. No focal deficits. Results/Medications Result Diagram: 09/10/17 0458 09/10/17 0458 Results 24 hrs Laboratory Tests Test 09/09/17 12:01 09/09/17 17:15 09/09/17 21:08 09/10/17 01:33 Bedside Glucose 117 222 H 193 180 Test 09/10/17 04:58 09/10/17 08:10 White Blood Count 19.9 H Red Blood Count 3.76 L Hemoglobin 8.1 L Hematocrit 28.1 L Mean Corpuscular Volume 74.7 L Mean Corpuscular Hemoglobin 21.5 L Mean Corpuscular Hemoglobin Concent 28.8 L Red Cell Distribution Width 22.5 H Platelet Count 214 Mean Platelet Volume 9.0 Neutrophils % 76.9 Lymphocytes % 9.7 L Monocytes % 4.9 Eosinophils % 0.0 Basophils % 0.2 Nucleated Red Blood Cells % 0.0 Neutrophils # 15.3 H Lymphocytes # 1.9 Monocytes # 1.0 H Eosinophils # 0.0 Basophils # 0.0 Nucleated Red Blood Cells # 0.0 Sodium Level 136 Potassium Level 4.1 Chloride Level 105 Carbon Dioxide Level 23 Anion Gap 12 Blood Urea Nitrogen 19 Creatinine 0.47 Glucose Level 169 Calcium Level 8.0 L Phosphorus Level 3.4 Magnesium Level 1.8 Bedside Glucose 150 Medications Current Medications Dexamethasone (Decadron) 4 mg BID PO Last administered on 09/10/17 08:38; Admin Dose 4 MG; Start 09/05/17 at 21:00 Docusate Sodium (Colace) 200 mg QHS PO Last administered on 09/09/17 21:10; Admin Dose 200 MG; Start 09/05/17 at 21:00 Ondansetron HCl (Zofran Inj) 4 mg Q6H PRN IV NAUSEA AND/OR VOMITING; Start at 21:00 Acetaminophen (Tylenol Tab) 650 mg Q6H PRN PO PAIN LEVEL 1-3 OR FEVER; Start 09/05/17 at 21:00 Oxycodone/ Acetaminophen (Percocet (5/ 325)) 1 tab Q6H PRN PO MODERATE PAIN LEVEL 4-6; Start 09/05/17 at 21:00 Morphine Sulfate (morphine) 2 mg Q4H PRN IV SEVERE PAIN LEVEL 7-10; Start at 21:00 Docusate Sodium (Colace) 100 mg Q12H PRN PO CONSTIPATION; Start 09/05/17 at 21 :00 Magnesium Hydroxide (Milk Of Mag) 30 ml DAILY PRN PO CONSTIPATION; Start 09/05 at 21:00 Famotidine (Pepcid) 20 mg Q12 PO Last administered on 09/10/17 08:38; Admin Dose 20 MG; Start 09/05/17 at 21:00 Albuterol (Proventil 0.083% (Neb)) 2.5 mg Q2 PRN HHN SHORTNESS OF BREATH; Start 09/05/17 at 21:00 Miscellaneous Information 1 ea NOTE XX ; Start 09/05/17 at 21:30 Glucose (Glutose) 15 gm Q15M PRN PO DECREASED GLUCOSE; Start 09/05/17 at 21:30 Glucose (Glutose) 22.5 gm Q15M PRN PO DECREASED GLUCOSE; Start 09/05/17 at 21: 30 Dextrose (D50w Syringe) 25 ml Q15M PRN IV DECREASED GLUCOSE; Start 09/05/17 at 21:30 Dextrose (D50w Syringe) 50 ml Q15M PRN IV DECREASED GLUCOSE; Start 09/05/17 at 21:30 Glucagon (Glucagen) 1 mg Q15M PRN IM DECREASED GLUCOSE; Start 09/05/17 at 21: 30 Glucose (Glutose) 15 gm Q15M PRN BUCCAL DECREASED GLUCOSE; Start 09/05/17 at 21:30 Nystatin (Nystatin Powder) 1 applic BID TOP Last administered on 09/10/17 08: 49; Admin Dose 1 APPLIC; Start 09/06/17 at 09:00 Tamoxifen Citrate (Nolvadex) 20 mg DAILY PO Last administered on 09/10/17 08: 47; Admin Dose 20 MG; Start 09/06/17 at 13:00 Diagnostic Test (Pha) 1 ea 1 ea 02 XX Last administered on 09/10/17 02:00; Admin Dose 1 EA; Start 09/07/17 at 02:00 Ceftriaxone Sodium 50 ml @ 100 mls/hr Q24H IVPB Last administered on 13:40; Admin Dose 100 MLS/HR; Start 09/08/17 at 14:00 Vancomycin HCl/ Sodium Chloride (Vancocin/NS) 250 ml @ 83.333 mls/ hr Q8H IVPB Last administered on 09/10/17 08:17; Admin Dose 83.333 MLS/HR; Start at 16:00 Assessment/Plan Chief Complaint/Hosp Course Assessment 1. Metastatic breast cancer with recurrent right pleural effusion. Cultures growing gram-positive cocci consistent with staph aureus. 2. Loculated pleural effusion possible empyema 3. CPC CODER metastasis currently receiving steroids and radiation therapy 4. Placed in respiratory isolation rule out TB will discuss with primary team Plan 1. CT chest trace loculated pleural effusion possible empyema in addition to malignant effusion. 2. Radiology to replace Pleurx catheter in appropriate pleural space. 3. Continue antibiotic coverage for staph infection. Pending decortication. Problems: MARTINEZ MASCORRO MD, [facility] Sep 10, 2017 10:11
--- NOTE | 2017-09-10 12:16 | CONS ---
Date/Time of Note Date/Time of Note DATE: 09/10/17 TIME: 12:14 Assessment/Plan Assessment/Plan Chief Complaint/Hosp Course #Her2+/ER+/WA+ metastatic breast ca -pt is non compliant and when she receives therapy, she is quite responsive to therapy -therefore at this time, although she has terminal disease, there are still many more treatment options which she could benefit from -given her Brain mets, I would consider a combination of Xeloda and Lapatinib which can penetrate the blood brain barrier -once she stabilizes can restart Tamoxifen as well #Pleural Effusion with superimposed infection -pt is s/p thoracentesis -plan is to proceed with pleurodesis given empyema and recurrent effusion. -appreciate pulmonary recs #Brain Mets -pt is s/p resection -to start WBRT with Dr. Ybarra tomorrow Problems: Consultation Date/Type/Reason Admit Date/Time Sep 05, 2017 at 18:29 Initial Consult Date 09/07/17 Type of Consultation: Hematology Reason for Consultation metastatic breast cancer to brain Referring Provider: MINDY NEGRON 24 HR Interval Summary Free Text/Dictation pt now out of isolation. to proceed with XRT tomorrow. continues on broad spectrum antibiotics Exam/Review of Systems Vital Signs Vitals Vital Signs Date Time Temp Pulse Resp B/P Pulse Ox O2 Delivery O2 Flow Rate FiO2 09/10/17 08:07 98.2 87 18 118/56 96 09/09/17 02:00 Room Air 09/06/17 08:00 2.0 Intake and Output 09/09/17 09/09/17 09/10/17 15:00 23:00 07:00 Intake Total 50 ml 1450 ml Balance 50 ml 1450 ml Exam Constitutional: alert, oriented Psych: no complaints Head: other (s/p craniotomy, chucho in place) Eyes: nl conjunctiva ENMT: nl external ears & nose Neck: supple Respiratory: diminished breath sounds, other (pleurex catheter in place) Cardiovascular: regular rate and rhythm Gastrointestinal: soft Musculoskeletal: nl extremities to inspection Results Result Diagram: 09/10/17 0458 09/10/17 0458 Results 24 hrs Laboratory Tests Test 09/09/17 17:15 09/09/17 21:08 09/10/17 01:33 09/10/17 04:58 Bedside Glucose 222 H 193 180 White Blood Count 19.9 H Red Blood Count 3.76 L Hemoglobin 8.1 L Hematocrit 28.1 L Mean Corpuscular Volume 74.7 L Mean Corpuscular Hemoglobin 21.5 L Mean Corpuscular Hemoglobin Concent 28.8 L Red Cell Distribution Width 22.5 H Platelet Count 214 Mean Platelet Volume 9.0 Neutrophils % 76.9 Lymphocytes % 9.7 L Monocytes % 4.9 Eosinophils % 0.0 Basophils % 0.2 Nucleated Red Blood Cells % 0.0 Neutrophils # 15.3 H Lymphocytes # 1.9 Monocytes # 1.0 H Eosinophils # 0.0 Basophils # 0.0 Nucleated Red Blood Cells # 0.0 Sodium Level 136 Potassium Level 4.1 Chloride Level 105 Carbon Dioxide Level 23 Anion Gap 12 Blood Urea Nitrogen 19 Creatinine 0.47 Glucose Level 169 Calcium Level 8.0 L Phosphorus Level 3.4 Magnesium Level 1.8 Test 09/10/17 08:10 Bedside Glucose 150 Medications Medications Current Medications Dexamethasone (Decadron) 4 mg BID PO Last administered on 09/10/17 08:38; Admin Dose 4 MG; Start 09/05/17 at 21:00 Docusate Sodium (Colace) 200 mg QHS PO Last administered on 09/09/17 21:10; Admin Dose 200 MG; Start 09/05/17 at 21:00 Ondansetron HCl (Zofran Inj) 4 mg Q6H PRN IV NAUSEA AND/OR VOMITING; Start at 21:00 Acetaminophen (Tylenol Tab) 650 mg Q6H PRN PO PAIN LEVEL 1-3 OR FEVER; Start 09/05/17 at 21:00 Oxycodone/ Acetaminophen (Percocet (5/ 325)) 1 tab Q6H PRN PO MODERATE PAIN LEVEL 4-6; Start 09/05/17 at 21:00 Morphine Sulfate (morphine) 2 mg Q4H PRN IV SEVERE PAIN LEVEL 7-10; Start at 21:00 Docusate Sodium (Colace) 100 mg Q12H PRN PO CONSTIPATION; Start 09/05/17 at 21 :00 Magnesium Hydroxide (Milk Of Mag) 30 ml DAILY PRN PO CONSTIPATION; Start 09/05 at 21:00 Famotidine (Pepcid) 20 mg Q12 PO Last administered on 09/10/17 08:38; Admin Dose 20 MG; Start 09/05/17 at 21:00 Albuterol (Proventil 0.083% (Neb)) 2.5 mg Q2 PRN HHN SHORTNESS OF BREATH; Start 09/05/17 at 21:00 Miscellaneous Information 1 ea NOTE XX ; Start 09/05/17 at 21:30 Glucose (Glutose) 15 gm Q15M PRN PO DECREASED GLUCOSE; Start 09/05/17 at 21:30 Glucose (Glutose) 22.5 gm Q15M PRN PO DECREASED GLUCOSE; Start 09/05/17 at 21: 30 Dextrose (D50w Syringe) 25 ml Q15M PRN IV DECREASED GLUCOSE; Start 09/05/17 at 21:30 Dextrose (D50w Syringe) 50 ml Q15M PRN IV DECREASED GLUCOSE; Start 09/05/17 at 21:30 Glucagon (Glucagen) 1 mg Q15M PRN IM DECREASED GLUCOSE; Start 09/05/17 at 21: 30 Glucose (Glutose) 15 gm Q15M PRN BUCCAL DECREASED GLUCOSE; Start 09/05/17 at 21:30 Nystatin (Nystatin Powder) 1 applic BID TOP Last administered on 09/10/17 08: 49; Admin Dose 1 APPLIC; Start 09/06/17 at 09:00 Tamoxifen Citrate (Nolvadex) 20 mg DAILY PO Last administered on 09/10/17 08: 47; Admin Dose 20 MG; Start 09/06/17 at 13:00 Diagnostic Test (Pha) 1 ea 1 ea 02 XX Last administered on 09/10/17 02:00; Admin Dose 1 EA; Start 09/07/17 at 02:00 Ceftriaxone Sodium 50 ml @ 100 mls/hr Q24H IVPB Last administered on 13:40; Admin Dose 100 MLS/HR; Start 09/08/17 at 14:00 Vancomycin HCl/ Sodium Chloride (Vancocin/NS) 250 ml @ 83.333 mls/ hr Q8H IVPB Last administered on 09/10/17 08:17; Admin Dose 83.333 MLS/HR; Start at 16:00 ANTWON DYE M.D. Sep 10, 2017 12:16
--- NOTE | 2017-09-10 12:55 | PN ---
Date/Time of Note Date/Time of Note DATE: 09/10/17 TIME: 12:53 Assessment/Plan VTE Prophylaxis VTE Prophylaxis Intervention: ambulation Lines/Catheters IV [facility] [place] Assessment/Plan Chief Complaint/Hosp Course Patient is a 39-year-old female with a past medical history of metastatic breast cancer with metastases to the liver and brain who presents from [facility] for malfunctioning Pleurx catheter. Assessment and plan Dysfunctional Pleurx catheter Cellulitis, area around catheter empyema?, staph aureus. Metastatic breast cancer, lung, liver, brain Diabetes mellitus Obesity Status post craniectomy for brain metastases -Continue Decadron and tamoxifen -radiation therapy today to resume on monday -Ultrasound-guided thoracentesis performed, cultures showing staph aureus -ID consulted, abx per ID, to order PICC if needed -Pulmonology consulted for malfunctioning Pleurx catheter, CT noted, CT surgery consulted, Dr. Estrada for VATS and pleurodesis sometime upcoming week based on schedule -Continue home meds as tolerated -PT OT DISPO: -IV abx, ?loculated effusion, VATS/pleurodesis this upcoming week, Dispo back to rehab once stable -radiation therapy will resume tomorrow, patient mistakenly was put on TB precautions, TB culture was ordered by mistake. Problems: Subjective 24 Hr Interval Summary Free Text/Dictation no acute complaints Exam/Review of Systems Vital Signs Vitals Vital Signs Date Time Temp Pulse Resp B/P Pulse Ox O2 Delivery O2 Flow Rate FiO2 09/10/17 08:07 98.2 87 18 118/56 96 09/09/17 02:00 Room Air 09/06/17 08:00 2.0 Intake and Output 09/09/17 09/09/17 09/10/17 15:00 23:00 07:00 Intake Total 50 ml 1450 ml Balance 50 ml 1450 ml Exam Physical exam General: Patient is laying in bed and answers questions appropriately Mentation: Patient is alert and oriented 4, Head: R side craniectomy site healing well. no more chucho Eyes: EOMI, pupils reactive to light Neck: Supple, nontender, midline Respiratory: decreased lung sounds on the R Cardiovascular: regular rate, no obvious murmurs Gastrointestinal: non-tender to palpation, bowel sounds heard. Neurological: Moves all extremities spontaneously Skin: erythematous skin around pleurx cath site, leaking catheter Results Result Diagram: 09/10/17 0458 09/10/17 0458 Results 24 hrs Laboratory Tests Test 09/09/17 17:15 09/09/17 21:08 09/10/17 01:33 09/10/17 04:58 Bedside Glucose 222 H 193 180 White Blood Count 19.9 H Red Blood Count 3.76 L Hemoglobin 8.1 L Hematocrit 28.1 L Mean Corpuscular Volume 74.7 L Mean Corpuscular Hemoglobin 21.5 L Mean Corpuscular Hemoglobin Concent 28.8 L Red Cell Distribution Width 22.5 H Platelet Count 214 Mean Platelet Volume 9.0 Neutrophils % 76.9 Lymphocytes % 9.7 L Monocytes % 4.9 Eosinophils % 0.0 Basophils % 0.2 Nucleated Red Blood Cells % 0.0 Neutrophils # 15.3 H Lymphocytes # 1.9 Monocytes # 1.0 H Eosinophils # 0.0 Basophils # 0.0 Nucleated Red Blood Cells # 0.0 Sodium Level 136 Potassium Level 4.1 Chloride Level 105 Carbon Dioxide Level 23 Anion Gap 12 Blood Urea Nitrogen 19 Creatinine 0.47 Glucose Level 169 Calcium Level 8.0 L Phosphorus Level 3.4 Magnesium Level 1.8 Test 09/10/17 08:10 09/10/17 12:16 Bedside Glucose 150 136 Medications Medications Current Medications Dexamethasone (Decadron) 4 mg BID PO Last administered on 09/10/17 08:38; Admin Dose 4 MG; Start 09/05/17 at 21:00 Docusate Sodium (Colace) 200 mg QHS PO Last administered on 09/09/17 21:10; Admin Dose 200 MG; Start 09/05/17 at 21:00 Ondansetron HCl (Zofran Inj) 4 mg Q6H PRN IV NAUSEA AND/OR VOMITING; Start at 21:00 Acetaminophen (Tylenol Tab) 650 mg Q6H PRN PO PAIN LEVEL 1-3 OR FEVER; Start 09/05/17 at 21:00 Oxycodone/ Acetaminophen (Percocet (5/ 325)) 1 tab Q6H PRN PO MODERATE PAIN LEVEL 4-6; Start 09/05/17 at 21:00 Morphine Sulfate (morphine) 2 mg Q4H PRN IV SEVERE PAIN LEVEL 7-10; Start at 21:00 Docusate Sodium (Colace) 100 mg Q12H PRN PO CONSTIPATION; Start 09/05/17 at 21 :00 Magnesium Hydroxide (Milk Of Mag) 30 ml DAILY PRN PO CONSTIPATION; Start 09/05 at 21:00 Famotidine (Pepcid) 20 mg Q12 PO Last administered on 09/10/17 08:38; Admin Dose 20 MG; Start 09/05/17 at 21:00 Albuterol (Proventil 0.083% (Neb)) 2.5 mg Q2 PRN HHN SHORTNESS OF BREATH; Start 09/05/17 at 21:00 Miscellaneous Information 1 ea NOTE XX ; Start 09/05/17 at 21:30 Glucose (Glutose) 15 gm Q15M PRN PO DECREASED GLUCOSE; Start 09/05/17 at 21:30 Glucose (Glutose) 22.5 gm Q15M PRN PO DECREASED GLUCOSE; Start 09/05/17 at 21: 30 Dextrose (D50w Syringe) 25 ml Q15M PRN IV DECREASED GLUCOSE; Start 09/05/17 at 21:30 Dextrose (D50w Syringe) 50 ml Q15M PRN IV DECREASED GLUCOSE; Start 09/05/17 at 21:30 Glucagon (Glucagen) 1 mg Q15M PRN IM DECREASED GLUCOSE; Start 09/05/17 at 21: 30 Glucose (Glutose) 15 gm Q15M PRN BUCCAL DECREASED GLUCOSE; Start 09/05/17 at 21:30 Nystatin (Nystatin Powder) 1 applic BID TOP Last administered on 09/10/17 08: 49; Admin Dose 1 APPLIC; Start 09/06/17 at 09:00 Tamoxifen Citrate (Nolvadex) 20 mg DAILY PO Last administered on 09/10/17 08: 47; Admin Dose 20 MG; Start 09/06/17 at 13:00 Diagnostic Test (Pha) 1 ea 1 ea 02 XX Last administered on 09/10/17 02:00; Admin Dose 1 EA; Start 09/07/17 at 02:00 Ceftriaxone Sodium 50 ml @ 100 mls/hr Q24H IVPB Last administered on 13:40; Admin Dose 100 MLS/HR; Start 09/08/17 at 14:00 Vancomycin HCl/ Sodium Chloride (Vancocin/NS) 250 ml @ 83.333 mls/ hr Q8H IVPB Last administered on 09/10/17t 08:17; Admin Dose 83.333 MLS/HR; Start at 16:00 JUAN MOTLEY Sep 10, 2017 12:55
[2017-09-10 13:58] VITALS: BP 119/69; RESP 18
[2017-09-10] MEDS: CEFTRIAXONE 1 GM/50 ML (PMX) 50 ML IVPB SCH (14:46)
--- NOTE | 2017-09-10 19:36 | CONS ---
Date/Time of Note Date/Time of Note DATE: 09/10/17 TIME: 19:35 Assessment/Plan Assessment/Plan Chief Complaint/Hosp Course ID PROGRESS NOTE CURRENT ABX: TOTAL ABX DAY # 5 => Vanco IV + Ceftriaxone 24H INTERVAL SUMMARY * Clincally status quo == stable NAD, without dyspnea on room air, no fevers * Morbid obesity + calm, polite, good historian * May: 09/06/17-1615 Source: THOR FLD Microbiology BODY FLUID CULTURE Final Organism 1 STAPHYLOCOCCUS AUREUS QUANTITY 2+ S AUREUS M.I.C. RX --------- --- CEFAZOLIN S CIPROFLOXACIN <=0.5 S CLINDAMYCIN <=0.25 S DOXYCYCLINE S ERYTHROMYCIN <=0.25 S LEVOFLOXACIN <=0.12 S OXACILLIN 0.5 S PENICILLIN-G >=0.5 R RIFAMPIN <=0.5 S VANCOMYCIN <=0.5 S TRIMETHOPRIM/SULFAMETHOXAZOLE <=10 S Physical Exam Physical Exam Constitutional: VSS, NAD, morbid obese, A/A/O x4, afebrile HEENT: Unremarkable Neck: Supple, full ROM Respiratory: Equal chest rise bilaterally, without dyspnea on observation, room air Cardiovascular: nl pulses, regular rate and rhythm Gastrointestinal: Soft, large pannus Extremities: Warm, no c/c/e ID ASSESSMENT 47 yo morbid obese F admit with: 1. Systemic inflammatory response syndrome. 2. Loculated right pleural effusion, possible empyema * s/p Thora w/ Pleural fluid culture grew oxacillin-sensitive Staphylococcus aureus, susceptible to majority antibiotics resistant to penicillin G. 3. Diabetes. 4. Metastatic breast carcinoma. 5. History of craniectomy from brain metastasis. (- )MRSA Nares INVASIVES: PIV ABX ALLERGIES: PCN CURRENT ABX: TOTAL ABX DAY # 5 => Vanco IV + Ceftriaxone ID RECOMMENDATIONS 1. Continue current ABX, tolerated Cephalosporin 2. Pending VATS . Problems: Consultation Date/Type/Reason Admit Date/Time Sep 05, 2017 at 18:29 Initial Consult Date 09/07/17 Type of Consultation: ID Referring Provider: MINDY NEGRON Exam/Review of Systems Vital Signs Vitals Vital Signs Date Time Temp Pulse Resp B/P Pulse Ox O2 Delivery O2 Flow Rate FiO2 09/10/17 13:58 98.9 79 18 119/69 98 09/09/17 02:00 Room Air 09/06/17 08:00 2.0 Intake and Output 09/09/17 09/09/17 09/10/17 15:00 23:00 07:00 Intake Total 50 ml 1450 ml Balance 50 ml 1450 ml Results Result Diagram: 09/10/17 0458 09/10/17 0458 Results 24 hrs Laboratory Tests Test 09/09/17 21:08 09/10/17 01:33 09/10/17 04:58 09/10/17 08:10 Bedside Glucose 193 180 150 White Blood Count 19.9 H Red Blood Count 3.76 L Hemoglobin 8.1 L Hematocrit 28.1 L Mean Corpuscular Volume 74.7 L Mean Corpuscular Hemoglobin 21.5 L Mean Corpuscular Hemoglobin Concent 28.8 L Red Cell Distribution Width 22.5 H Platelet Count 214 Mean Platelet Volume 9.0 Neutrophils % 76.9 Lymphocytes % 9.7 L Monocytes % 4.9 Eosinophils % 0.0 Basophils % 0.2 Nucleated Red Blood Cells % 0.0 Neutrophils # 15.3 H Lymphocytes # 1.9 Monocytes # 1.0 H Eosinophils # 0.0 Basophils # 0.0 Nucleated Red Blood Cells # 0.0 Sodium Level 136 Potassium Level 4.1 Chloride Level 105 Carbon Dioxide Level 23 Anion Gap 12 Blood Urea Nitrogen 19 Creatinine 0.47 Glucose Level 169 Calcium Level 8.0 L Phosphorus Level 3.4 Magnesium Level 1.8 Test 09/10/17 12:16 09/10/17 17:09 Bedside Glucose 136 144 Medications Medications Current Medications Dexamethasone (Decadron) 4 mg BID PO Last administered on 09/10/17 08:38; Admin Dose 4 MG; Start 09/05/17 at 21:00 Docusate Sodium (Colace) 200 mg QHS PO Last administered on 09/09/17 21:10; Admin Dose 200 MG; Start 09/05/17 at 21:00 Ondansetron HCl (Zofran Inj) 4 mg Q6H PRN IV NAUSEA AND/OR VOMITING; Start at 21:00 Acetaminophen (Tylenol Tab) 650 mg Q6H PRN PO PAIN LEVEL 1-3 OR FEVER; Start 09/05/17 at 21:00 Oxycodone/ Acetaminophen (Percocet (5/ 325)) 1 tab Q6H PRN PO MODERATE PAIN LEVEL 4-6; Start 09/05/17 at 21:00 Morphine Sulfate (morphine) 2 mg Q4H PRN IV SEVERE PAIN LEVEL 7-10; Start at 21:00 Docusate Sodium (Colace) 100 mg Q12H PRN PO CONSTIPATION; Start 09/05/17 at 21 :00 Magnesium Hydroxide (Milk Of Mag) 30 ml DAILY PRN PO CONSTIPATION; Start 09/05 at 21:00 Famotidine (Pepcid) 20 mg Q12 PO Last administered on 09/10/17 08:38; Admin Dose 20 MG; Start 09/05/17 at 21:00 Albuterol (Proventil 0.083% (Neb)) 2.5 mg Q2 PRN HHN SHORTNESS OF BREATH; Start 09/05/17 at 21:00 Miscellaneous Information 1 ea NOTE XX ; Start 09/05/17 at 21:30 Glucose (Glutose) 15 gm Q15M PRN PO DECREASED GLUCOSE; Start 09/05/17 at 21:30 Glucose (Glutose) 22.5 gm Q15M PRN PO DECREASED GLUCOSE; Start 09/05/17 at 21: 30 Dextrose (D50w Syringe) 25 ml Q15M PRN IV DECREASED GLUCOSE; Start 09/05/17 at 21:30 Dextrose (D50w Syringe) 50 ml Q15M PRN IV DECREASED GLUCOSE; Start 09/05/17 at 21:30 Glucagon (Glucagen) 1 mg Q15M PRN IM DECREASED GLUCOSE; Start 09/05/17 at 21: 30 Glucose (Glutose) 15 gm Q15M PRN BUCCAL DECREASED GLUCOSE; Start 09/05/17 at 21:30 Nystatin (Nystatin Powder) 1 applic BID TOP Last administered on 09/10/17 08: 49; Admin Dose 1 APPLIC; Start 09/06/17 at 09:00 Tamoxifen Citrate (Nolvadex) 20 mg DAILY PO Last administered on 09/10/17 08: 47; Admin Dose 20 MG; Start 09/06/17 at 13:00 Diagnostic Test (Pha) 1 ea 1 ea 02 XX Last administered on 09/10/17 02:00; Admin Dose 1 EA; Start 09/07/17 at 02:00 Ceftriaxone Sodium 50 ml @ 100 mls/hr Q24H IVPB Last administered on 14:46; Admin Dose 100 MLS/HR; Start 09/08/17 at 14:00 Vancomycin HCl/ Sodium Chloride (Vancocin/NS) 250 ml @ 83.333 mls/ hr Q8H IVPB Last administered on 09/10/17 16:30; Admin Dose 83.333 MLS/HR; Start at 16:00 Miscellaneous Information (*Rx Drug Level Order Reminder*) VANCOMYCIN TROUGH AT 2300 ONCE ONCE XX ; Start 09/10/17 at 23:00; Stop 09/10/17 at 23:01 VIKY NARVAEZ NP Sep 10, 2017 19:36
[2017-09-10 19:43] VITALS: BP 122/58; RESP 18
[2017-09-10] MEDS: DOCUSATE SODIUM 100 MG CAP PO SCH (20:42)
[2017-09-11] MEDS: VANCOMYCIN 1.25 GM in SOD CHLORIDE 0.9% 250 ML IVPB SCH ×2 (00:31→09:49)
[2017-09-11 02:22] VITALS: BP 116/73; RESP 18
[2017-09-11] MEDS: ACCU-CHEK XX SCH (02:34)
[2017-09-11 06:29] LABS: ABNORMAL IP MESSAGE 1; HEMATOCRIT 29.1 % (37.0-47.0); HEMOGLOBIN 8.8 g/dl (12.0-16.0); MEAN CORPUSCULAR HEMOGLOBIN 22.4 pg (29.0-33.0); MEAN CORPUSCULAR HGB CONC 30.2 g/dl (32.0-37.0); PLATELET COUNT 259 10^3/UL (140-415); RED BLOOD COUNT 3.93 10^6/ul (4.20-5.40); RED CELL DISTRIBUTION WIDTH 22.3 % (11.5-14.5); WHITE BLOOD COUNT 23.2 10^3/ul (4.8-10.8)
[2017-09-11 06:35] LABS: POSITIVE DIFF @See below
[2017-09-11 06:52] LABS: CALCIUM 8.3 mg/dl (8.4-10.2); CREATININE 0.43 mg/dl (0.44-1.00); MAGNESIUM 1.8 mg/dl (1.7-2.5); PHOSPHORUS 3.7 mg/dl (2.5-4.9); POTASSIUM 4.2 mmol/L (3.5-5.1)
[2017-09-11 07:19] VITALS: BP 117/78; RESP 6
[2017-09-11] MEDS: INSULIN ASPART [NOVOLOG] 3 ML PEN SC SCH ×4 (07:39→20:12)
[2017-09-11] MEDS: NYSTATIN 30 GM POWDER BTL TOP SCH ×2 (09:00→20:13)
[2017-09-11] MEDS: DEXAMETHASONE 4 MG TAB PO SCH ×2 (09:47→20:09)
[2017-09-11] MEDS: FAMOTIDINE 20 MG TAB PO SCH ×2 (09:47→20:09)
[2017-09-11 09:52] LABS: LYMPHOCYTES # 1.4 10^3/ul (0.8-2.9); MONOCYTE # 1.6 10^3/ul (0.3-0.9); MONOCYTES % (M) 7 % (0-11)
[2017-09-11] MEDS: TAMOXIFEN 10 MG TAB PO SCH (11:17)
--- NOTE | 2017-09-11 11:50 | CONS ---
Date/Time of Note Date/Time of Note DATE: 09/11/17 TIME: 11:49 Consult Date/Type/Reason Admit Date/Time Sep 05, 2017 at 18:29 Initial Consult Date 09/06/17 Type of Consultation: Pulmonary Ordering Provider: MINDY NEGRON Subjective No significant changes. Remains stable this morning. Objective Vital Signs Date Time Temp Pulse Resp B/P Pulse Ox O2 Delivery O2 Flow Rate FiO2 09/11/17 07:19 98.4 69 6 117/78 99 09/09/17 02:00 Room Air Intake and Output 09/10/17 09/10/17 09/11/17 15:00 23:00 07:00 Intake Total 250 ml 1480 ml 1050 ml Balance 250 ml 1480 ml 1050 ml Exam GENERAL: Well-developed lady comfortable at rest VITAL SIGNS: per chart NECK: Supple. No JVD or lymphadenopathy. CARDIAC EXAM: S1, S2. No added sounds or murmurs. CHEST: clear bilaterally, No added sounds, rales or wheezes ABDOMEN: Soft, nontender. No guarding or rebound. EXTREMITIES: No cyanosis, clubbing or edema. NEUROLOGIC: Generalized weakness. No focal deficits. Results/Medications Result Diagram: 09/11/1726 09/11/17 0526 Results 24 hrs Laboratory Tests Test 09/10/17 12:16 09/10/17 17:09 09/10/17 20:40 09/10/17 23:07 Bedside Glucose 136 144 210 Vancomycin Level Trough 14.2 Test 09/11/17 02:27 09/11/17 05:26 09/11/17 07:25 Bedside Glucose 190 127 White Blood Count 23.2 H Red Blood Count 3.93 L Hemoglobin 8.8 L Hematocrit 29.1 L Mean Corpuscular Volume 74.0 L Mean Corpuscular Hemoglobin 22.4 L Mean Corpuscular Hemoglobin Concent 30.2 L Red Cell Distribution Width 22.3 H Platelet Count 259 # Mean Platelet Volume 9.0 Neutrophils % Segmented Neutrophils % (Manual) 79 H Band Neutrophils % (Manual) 8 H Lymphocytes % Lymphocytes % (Manual) 6 L Monocytes % Monocytes % (Manual) 7 Eosinophils % Basophils % Nucleated Red Blood Cells % 0.0 Neutrophils # Neutrophils # (Manual) 18.7 H Band Neutrophils # 1.8 H Absolute Lymphocytes (Manual) 1.3 Lymphocytes # 1.4 Monocytes # 1.6 H Absolute Monocytes (Manual) 1.6 H Eosinophils # Basophils # Nucleated Red Blood Cells # Sodium Level 137 Potassium Level 4.2 Chloride Level 105 Carbon Dioxide Level 23 Anion Gap 13 Blood Urea Nitrogen 18 Creatinine 0.43 L Glucose Level 157 Calcium Level 8.3 L Phosphorus Level 3.7 Magnesium Level 1.8 Medications Current Medications Dexamethasone (Decadron) 4 mg BID PO Last administered on 09/11/17 09:47; Admin Dose 4 MG; Start 09/05/17 at 21:00 Docusate Sodium (Colace) 200 mg QHS PO Last administered on 09/10/17 20:42; Admin Dose 200 MG; Start 09/05/17 at 21:00 Ondansetron HCl (Zofran Inj) 4 mg Q6H PRN IV NAUSEA AND/OR VOMITING; Start at 21:00 Acetaminophen (Tylenol Tab) 650 mg Q6H PRN PO PAIN LEVEL 1-3 OR FEVER; Start 09/05/17 at 21:00 Oxycodone/ Acetaminophen (Percocet (5/ 325)) 1 tab Q6H PRN PO MODERATE PAIN LEVEL 4-6; Start 09/05/17 at 21:00 Morphine Sulfate (morphine) 2 mg Q4H PRN IV SEVERE PAIN LEVEL 7-10; Start at 21:00 Docusate Sodium (Colace) 100 mg Q12H PRN PO CONSTIPATION; Start 09/05/17 at 21 :00 Magnesium Hydroxide (Milk Of Mag) 30 ml DAILY PRN PO CONSTIPATION; Start 09/05 at 21:00 Famotidine (Pepcid) 20 mg Q12 PO Last administered on 09/11/17 09:47; Admin Dose 20 MG; Start 09/05/17 at 21:00 Albuterol (Proventil 0.083% (Neb)) 2.5 mg Q2 PRN HHN SHORTNESS OF BREATH; Start 09/05/17 at 21:00 Miscellaneous Information 1 ea NOTE XX ; Start 09/05/17 at 21:30 Glucose (Glutose) 15 gm Q15M PRN PO DECREASED GLUCOSE; Start 09/05/17 at 21:30 Glucose (Glutose) 22.5 gm Q15M PRN PO DECREASED GLUCOSE; Start 09/05/17 at 21: 30 Dextrose (D50w Syringe) 25 ml Q15M PRN IV DECREASED GLUCOSE; Start 09/05/17 at 21:30 Dextrose (D50w Syringe) 50 ml Q15M PRN IV DECREASED GLUCOSE; Start 09/05/17 at 21:30 Glucagon (Glucagen) 1 mg Q15M PRN IM DECREASED GLUCOSE; Start 09/05/17 at 21: 30 Glucose (Glutose) 15 gm Q15M PRN BUCCAL DECREASED GLUCOSE; Start 09/05/17 at 21:30 Nystatin (Nystatin Powder) 1 applic BID TOP Last administered on 09/11/17 09: 00; Admin Dose 1 APPLIC; Start 09/06/17 at 09:00 Tamoxifen Citrate (Nolvadex) 20 mg DAILY PO Last administered on 09/11/17 11: 17; Admin Dose 20 MG; Start 09/06/17 at 13:00 Diagnostic Test (Pha) 1 ea 1 ea 02 XX Last administered on 09/11/17 02:34; Admin Dose 1 EA; Start 09/07/17 at 02:00 Ceftriaxone Sodium 50 ml @ 100 mls/hr Q24H IVPB Last administered on 14:46; Admin Dose 100 MLS/HR; Start 09/08/17 at 14:00 Vancomycin HCl/ Sodium Chloride (Vancocin/NS) 250 ml @ 83.333 mls/ hr Q8H IVPB Last administered on 09/11/17 09:49; Admin Dose 83.333 MLS/HR; Start at 16:00 Assessment/Plan Chief Complaint/Hosp Course Assessment 1. Metastatic breast cancer with recurrent right pleural effusion. Cultures growing gram-positive cocci consistent with staph aureus. 2. Loculated pleural effusion possible empyema 3. 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 CT chest trace loculated pleural effusion possible empyema in addition to malignant effusion. 2. 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 Continue antibiotic coverage for staph infection. Pending decortication. Problems: MARTINEZ [facility]ASCORRO [facility] Sep 11, 2017 11:50
--- NOTE | 2017-09-11 12:21 | PN ---
Date/Time of Note Date/Time of Note DATE: 09/11/17 TIME: 12:21 Assessment/Plan VTE Prophylaxis VTE Prophylaxis Intervention: SCD's Lines/Catheters IV Catheter Type (from Nrs): Saline Lock Assessment/Plan Assessment/Plan 1. Dysfunctional Pleurx catheter - Pulmonology on board and consultation appreciated - Radiology adjusted catheter placement - Respiratory status stable at this time 2. Cellulitis, area around catheter - ID on board and recommendations appreciated. Continue on antibiotics 3. Empyema?, staph aureus. - CT chest showed trace loculated pleural effusion with possible empyema in addition to malignant effusion. - CT surgery on board and plans for VATS and pleurodesis when able - Continue IV antibiotics per ID - Ultrasound-guided thoracentesis performed, cultures showing staph aureus 4. Metastatic breast cancer, lung, liver, brain, s/p craniectomy - currently receiving radiation therapy and tamoxifen and Decadron - Heme/onc on board and consultation appreciated 5. Diabetes mellitus - Currently stable 6. Obesity - Counseled about diet and improving exercise routine when stable 7. Disposition - Awaiting VATS and pleurodesis Subjective 24 Hr Interval Summary Free Text/Dictation Patient resting comfortably in no acute distress. Denies any new complaints and no acute overnight events. Plans for radiation today which patient has been tolerating. Exam/Review of Systems Vital Signs Vitals Vital Signs Date Time Temp Pulse Resp B/P Pulse Ox O2 Delivery O2 Flow Rate FiO2 09/11/17 07:19 98.4 69 6 117/78 99 09/09/17 02:00 Room Air Intake and Output 09/10/17 09/10/17 09/11/17 15:00 23:00 07:00 Intake Total 250 ml 1480 ml 1050 ml Balance 250 ml 1480 ml 1050 ml Exam General: Patient is laying in bed and answers questions appropriately. NAD Mentation: Patient is alert and oriented 4, Head: R side craniectomy site healing well. Eyes: EOMI, pupils reactive to light Neck: Supple, nontender, midline Respiratory: decreased lung sounds on the R Cardiovascular: regular rate, no obvious murmurs Gastrointestinal: non-tender to palpation, bowel sounds heard. Neurological: Moves all extremities spontaneously Skin: mild erythematous skin around pleurx cath site Results Result Diagram: 09/11/1752509/11/17525 Results 24 hrs Laboratory Tests Test 09/10/17 17:09 09/10/17 20:40 09/10/17 23:07 09/11/17 02:27 Bedside Glucose 144 210 190 Vancomycin Level Trough 14.2 Test 09/11/17 05:26 09/11/17 07:25 09/11/17 11:48 White Blood Count 23.2 H Red Blood Count 3.93 L Hemoglobin 8.8 L Hematocrit 29.1 L Mean Corpuscular Volume 74.0 L Mean Corpuscular Hemoglobin 22.4 L Mean Corpuscular Hemoglobin Concent 30.2 L Red Cell Distribution Width 22.3 H Platelet Count 259 # Mean Platelet Volume 9.0 Neutrophils % Segmented Neutrophils % (Manual) 79 H Band Neutrophils % (Manual) 8 H Lymphocytes % Lymphocytes % (Manual) 6 L Monocytes % Monocytes % (Manual) 7 Eosinophils % Basophils % Nucleated Red Blood Cells % 0.0 Neutrophils # Neutrophils # (Manual) 18.7 H Band Neutrophils # 1.8 H Absolute Lymphocytes (Manual) 1.3 Lymphocytes # 1.4 Monocytes # 1.6 H Absolute Monocytes (Manual) 1.6 H Eosinophils # Basophils # Nucleated Red Blood Cells # Sodium Level 137 Potassium Level 4.2 Chloride Level 105 Carbon Dioxide Level 23 Anion Gap 13 Blood Urea Nitrogen 18 Creatinine 0.43 L Glucose Level 157 Calcium Level 8.3 L Phosphorus Level 3.7 Magnesium Level 1.8 Bedside Glucose 127 113 Medications Medications Current Medications Dexamethasone (Decadron) 4 mg BID PO Last administered on 09/11/17 09:47; Admin Dose 4 MG; Start 09/05/17 at 21:00 Docusate Sodium (Colace) 200 mg QHS PO Last administered on 09/10/17 20:42; Admin Dose 200 MG; Start 09/05/17 at 21:00 Ondansetron HCl (Zofran Inj) 4 mg Q6H PRN IV NAUSEA AND/OR VOMITING; Start at 21:00 Acetaminophen (Tylenol Tab) 650 mg Q6H PRN PO PAIN LEVEL 1-3 OR FEVER; Start 09/05/17 at 21:00 Oxycodone/ Acetaminophen (Percocet (5/ 325)) 1 tab Q6H PRN PO MODERATE PAIN LEVEL 4-6; Start 09/05/17 at 21:00 Morphine Sulfate (morphine) 2 mg Q4H PRN IV SEVERE PAIN LEVEL 7-10; Start at 21:00 Docusate Sodium (Colace) 100 mg Q12H PRN PO CONSTIPATION; Start 09/05/17 at 21 :00 Magnesium Hydroxide (Milk Of Mag) 30 ml DAILY PRN PO CONSTIPATION; Start 09/05 at 21:00 Famotidine (Pepcid) 20 mg Q12 PO Last administered on 09/11/17 09:47; Admin Dose 20 MG; Start 09/05/17 at 21:00 Albuterol (Proventil 0.083% (Neb)) 2.5 mg Q2 PRN HHN SHORTNESS OF BREATH; Start 09/05/17 at 21:00 Miscellaneous Information 1 ea NOTE XX ; Start 09/05/17 at 21:30 Glucose (Glutose) 15 gm Q15M PRN PO DECREASED GLUCOSE; Start 09/05/17 at 21:30 Glucose (Glutose) 22.5 gm Q15M PRN PO DECREASED GLUCOSE; Start 09/05/17 at 21: 30 Dextrose (D50w Syringe) 25 ml Q15M PRN IV DECREASED GLUCOSE; Start 09/05/17 at 21:30 Dextrose (D50w Syringe) 50 ml Q15M PRN IV DECREASED GLUCOSE; Start 09/05/17 at 21:30 Glucagon (Glucagen) 1 mg Q15M PRN IM DECREASED GLUCOSE; Start 09/05/17 at 21: 30 Glucose (Glutose) 15 gm Q15M PRN BUCCAL DECREASED GLUCOSE; Start 09/05/17 at 21:30 Nystatin (Nystatin Powder) 1 applic BID TOP Last administered on 09/11/17 09: 00; Admin Dose 1 APPLIC; Start 09/06/17 at 09:00 Tamoxifen Citrate (Nolvadex) 20 mg DAILY PO Last administered on 09/11/17 11: 17; Admin Dose 20 MG; Start 09/06/17 at 13:00 Diagnostic Test (Pha) 1 ea 1 ea 02 XX Last administered on 09/11/17 02:34; Admin Dose 1 EA; Start 09/07/17 at 02:00 Ceftriaxone Sodium 50 ml @ 100 mls/hr Q24H IVPB Last administered on 14:46; Admin Dose 100 MLS/HR; Start 09/08/17 at 14:00 Vancomycin HCl/ Sodium Chloride (Vancocin/NS) 250 ml @ 83.333 mls/ hr Q8H IVPB Last administered on 09/11/17t 09:49; Admin Dose 83.333 MLS/HR; Start at 16:00 Miscellaneous Information (*Rx Drug Level Order Reminder*) VANCOMYCIN TROUGH AT 1500 ONCE ONCE XX ; Start 09/12/17 at 15:00; Stop 09/12/17 at 15:01 ZEUS TABOR MD Sep 11, 2017 12:21
[2017-09-11] MEDS: CEFTRIAXONE 1 GM/50 ML (PMX) 50 ML IVPB SCH (14:27)
[2017-09-11 14:55] VITALS: BP 127/63; RESP 18
--- NOTE | 2017-09-11 15:44 | PN ---
Date/Time of Note Date/Time of Note DATE: 09/11/17 TIME: 15:44 Assessment/Plan Lines/Catheters IV Catheter Type (from Nrs): Saline Lock Assessment/Plan Chief Complaint/Hosp Course IMPRESSION: Right loculated pleural effusion. RECOMMENDATIONS: We will proceed with video-assisted thoracic surgery and decortication with pleurodesis tomorrow. . Discussed with the patient. Problems: Subjective 24 Hr Interval Summary Constitutional: improved Pain Control: mild Exam/Review of Systems Vital Signs Vitals Vital Signs Date Time Temp Pulse Resp B/P Pulse Ox O2 Delivery O2 Flow Rate FiO2 09/11/17 14:55 98.9 68 18 127/63 97 09/09/17 02:00 Room Air Intake and Output 09/10/17 09/10/17 09/11/17 15:00 23:00 07:00 Intake Total 250 ml 1480 ml 1050 ml Balance 250 ml 1480 ml 1050 ml Exam ENMT: mucosa pink and moist, nl external ears & nose, nl lips & teeth, nl nasal mucosa & septum Neck: non-tender, supple Respiratory: clear to auscultation, normal air movement Cardiovascular: nl pulses, regular rate and rhythm Gastrointestinal: nl liver, spleen, non-tender, soft Results Result Diagram: 09/11/17 0526 09/11/17 0526 DEVIKA MENA MD Sep 11, 2017 15:44
[2017-09-11 19:57] VITALS: BP 123/62; RESP 19
[2017-09-11] MEDS: DOCUSATE SODIUM 100 MG CAP PO SCH (20:09)
[2017-09-12] VITALS (7 sets, daily range): BP systolic 94–132; BP diastolic 50–78; PULSE 66–72; RESP 18–22
[2017-09-12] MEDS: SOD CHLORIDE 0.9% 1,000 ML IV SCH ×3 (00:48→20:36)
[2017-09-12] MEDS: INSULIN ASPART [NOVOLOG] 3 ML PEN SC SCH ×6 (00:55→20:28)
[2017-09-12] MEDS: ACCU-CHEK XX SCH (01:11)
[2017-09-12 05:19] LABS: ABNORMAL IP MESSAGE 1; BASOPHILS % 0.1 % (0.0-2.0); HEMATOCRIT 26.7 % (37.0-47.0); HEMOGLOBIN 8.1 g/dl (12.0-16.0); LYMPHOCYTES # 1.6 10^3/ul (0.8-2.9); LYMPHOCYTES % 8.8 % (15.0-51.0); MEAN CORPUSCULAR HEMOGLOBIN 22.4 pg (29.0-33.0); MEAN CORPUSCULAR HGB CONC 30.3 g/dl (32.0-37.0); MEAN CORPUSCULAR VOLUME 73.8 fl (82.0-101.0); MEAN PLATELET VOLUME 8.5 fl (7.4-10.4); MONOCYTES % 5.4 % (0.0-11.0); NEUTROPHIL # 13.8 10^3/ul (1.6-7.5); PLATELET COUNT 198 10^3/UL (140-415); RED BLOOD COUNT 3.62 10^6/ul (4.20-5.40); RED CELL DISTRIBUTION WIDTH 22.3 % (11.5-14.5); WHITE BLOOD COUNT 17.7 10^3/ul (4.8-10.8)
[2017-09-12 05:22] LABS: POSITIVE DIFF @See below
[2017-09-12 05:40] LABS: ALBUMIN 2.4 g/dl (3.3-4.9); CALCIUM 8.2 mg/dl (8.4-10.2); CREATININE 0.41 mg/dl (0.44-1.00); MAGNESIUM 1.7 mg/dl (1.7-2.5); PHOSPHORUS 3.6 mg/dl (2.5-4.9); POTASSIUM 3.9 mmol/L (3.5-5.1)
--- NOTE | 2017-09-12 06:38 | PN ---
DATE: 09/11/2017 SUBJECTIVE: The patient is alert, denies pain, discomfort. No fevers. Vital signs stable. LABORATORY STUDIES: WBC today 23.2, H and H 8.8 and 29.1, platelets 259, neutrophils 79, bands 8, lymphs 6. BUN 18, creatinine 0.43. MICROBIOLOGY: Pleural fluid culture grew oxacillin-sensitive Staphylococcus aureus. ANTIMICROBIALS: The patient is on: 1. IV vancomycin. 2. Rocephin. INDWELLINGS: The patient has right PleurX. PHYSICAL EXAMINATION: GENERAL: This is an obese, well-developed, middle-aged woman who is in no distress. HEENT: Head atraumatic, normocephalic. Sclerae anicteric. Buccal mucosa dry. NECK: Supple. CHEST: Rise symmetrical. Breath sounds clear, diminished to bases. HEART: S1, S2. ABDOMEN: Soft. Bowel tones present. EXTREMITIES: Without cyanosis. ASSESSMENT: 1. Systemic inflammatory response syndrome with persistent leukocytosis. 2. Loculated right pleural effusion, possible empyema, with culture growing oxacillin-sensitive Sta phylococcus aureus. 3. Metastatic breast cancer. 4. Obesity. 5. Diabetes. 6. History of craniectomy for brain metastasis. PLAN: The patient is stable. She is being seen by multiple consultants. We are going to discontin ue vancomycin and keep her on Rocephin. Await for VATS with pleural catheter removal. Dictated By: ZULEYMA ALEX CREDENTIALING SPECIALIST for FELIS[facility]AFIA Conf#: [id number] DID#: [id number]
[2017-09-12] MEDS: DEXAMETHASONE 4 MG TAB PO SCH ×2 (09:00→21:00)
[2017-09-12] MEDS: FAMOTIDINE 20 MG TAB PO SCH ×2 (09:00→21:00)
[2017-09-12] MEDS: TAMOXIFEN 10 MG TAB PO SCH (09:00)
[2017-09-12] MEDS: NYSTATIN 30 GM POWDER BTL TOP SCH (09:42)
--- NOTE | 2017-09-12 10:46 | CONS ---
Date/Time of Note Date/Time of Note DATE: 09/12/17 TIME: 10:46 Consult Date/Type/Reason Admit Date/Time Sep 05, 2017 at 18:29 Initial Consult Date 09/06/17 Type of Consultation: Pulmonary Ordering Provider: MINDY NEGRON Subjective Patient comfortable today. No new events. Objective Vital Signs Date Time Temp Pulse Resp B/P Pulse Ox O2 Delivery O2 Flow Rate FiO2 09/12/17 07:17 97.8 73 18 132/78 99 09/09/17 02:00 Room Air Intake and Output 09/11/17 09/11/17 09/12/17 15:00 23:00 07:00 Intake Total 300 ml 1620 ml 280 ml Balance 300 ml 1620 ml 280 ml Exam GENERAL: Well-developed lady comfortable at rest VITAL SIGNS: per chart NECK: Supple. No JVD or lymphadenopathy. CARDIAC EXAM: S1, S2. No added sounds or murmurs. CHEST: clear bilaterally, No added sounds, rales or wheezes ABDOMEN: Soft, nontender. No guarding or rebound. EXTREMITIES: No cyanosis, clubbing or edema. NEUROLOGIC: Generalized weakness. No focal deficits. Results/Medications Result Diagram: 09/12/17 0512 09/12/17 0512 Results 24 hrs Laboratory Tests Test 09/11/17 11:48 09/11/17 17:35 09/11/17 20:08 09/12/17 00:49 Bedside Glucose 113 142 172 251 H Test 09/12/17 05:11 09/12/17 05:12 09/12/17 09:28 Bedside Glucose 170 97 White Blood Count 17.7 #H Red Blood Count 3.62 L Hemoglobin 8.1 L Hematocrit 26.7 L Mean Corpuscular Volume 73.8 L Mean Corpuscular Hemoglobin 22.4 L Mean Corpuscular Hemoglobin Concent 30.3 L Red Cell Distribution Width 22.3 H Platelet Count 198 # Mean Platelet Volume 8.5 Neutrophils % 78.0 H Lymphocytes % 8.8 L Monocytes % 5.4 Eosinophils % 0.0 Basophils % 0.1 Nucleated Red Blood Cells % 0.0 Neutrophils # 13.8 H Lymphocytes # 1.6 Monocytes # 1.0 H Eosinophils # 0.0 Basophils # 0.0 Nucleated Red Blood Cells # 0.0 Sodium Level 137 Potassium Level 3.9 Chloride Level 107 Carbon Dioxide Level 24 Anion Gap 10 Blood Urea Nitrogen 16 Creatinine 0.41 L Glucose Level 151 Calcium Level 8.2 L Phosphorus Level 3.6 Magnesium Level 1.7 Albumin 2.4 L Medications Current Medications Dexamethasone (Decadron) 4 mg BID PO Last administered on 09/11/17 20:09; Admin Dose 4 MG; Start 09/05/17 at 21:00 Docusate Sodium (Colace) 200 mg QHS PO Last administered on 09/11/17 20:09; Admin Dose 200 MG; Start 09/05/17 at 21:00 Ondansetron HCl (Zofran Inj) 4 mg Q6H PRN IV NAUSEA AND/OR VOMITING; Start at 21:00 Acetaminophen (Tylenol Tab) 650 mg Q6H PRN PO PAIN LEVEL 1-3 OR FEVER; Start 09/05/17 at 21:00 Oxycodone/ Acetaminophen (Percocet (5/ 325)) 1 tab Q6H PRN PO MODERATE PAIN LEVEL 4-6; Start 09/05/17 at 21:00 Morphine Sulfate (morphine) 2 mg Q4H PRN IV SEVERE PAIN LEVEL 7-10; Start at 21:00 Docusate Sodium (Colace) 100 mg Q12H PRN PO CONSTIPATION; Start 09/05/17 at 21 :00 Magnesium Hydroxide (Milk Of Mag) 30 ml DAILY PRN PO CONSTIPATION; Start 09/05 at 21:00 Famotidine (Pepcid) 20 mg Q12 PO Last administered on 09/11/17 20:09; Admin Dose 20 MG; Start 09/05/17 at 21:00 Albuterol (Proventil 0.083% (Neb)) 2.5 mg Q2 PRN HHN SHORTNESS OF BREATH; Start 09/05/17 at 21:00 Miscellaneous Information 1 ea NOTE XX ; Start 09/05/17 at 21:30 Glucose (Glutose) 15 gm Q15M PRN PO DECREASED GLUCOSE; Start 09/05/17 at 21:30 Glucose (Glutose) 22.5 gm Q15M PRN PO DECREASED GLUCOSE; Start 09/05/17 at 21: 30 Dextrose (D50w Syringe) 25 ml Q15M PRN IV DECREASED GLUCOSE; Start 09/05/17 at 21:30 Dextrose (D50w Syringe) 50 ml Q15M PRN IV DECREASED GLUCOSE; Start 09/05/17 at 21:30 Glucagon (Glucagen) 1 mg Q15M PRN IM DECREASED GLUCOSE; Start 09/05/17 at 21: 30 Glucose (Glutose) 15 gm Q15M PRN BUCCAL DECREASED GLUCOSE; Start 09/05/17 at 21:30 Nystatin (Nystatin Powder) 1 applic BID TOP Last administered on 09/12/17 09: 42; Admin Dose 1 APPLIC; Start 09/06/17 at 09:00 Tamoxifen Citrate (Nolvadex) 20 mg DAILY PO Last administered on 09/11/17 11: 17; Admin Dose 20 MG; Start 09/06/17 at 13:00 Diagnostic Test (Pha) 1 ea 1 ea 02 XX Last administered on 09/11/17 02:34; Admin Dose 1 EA; Start 09/07/17 at 02:00 Ceftriaxone Sodium 50 ml @ 100 mls/hr Q24H IVPB Last administered on 14:27; Admin Dose 100 MLS/HR; Start 09/08/17 at 14:00 Sodium Chloride (NS) 1,000 ml @ 70 mls/hr [id number] IV Last administered on 00:48; Admin Dose 70 MLS/HR; Start 09/12/17 at 00:00 Insulin Aspart (Novolog Insulin Pen) NOVOLOG *MILD* ALGORI... Q4 SC Last administered on 09/12/17 05:15; Admin Dose 1 UNIT; Start 09/12/17 at 01:00 Assessment/Plan Chief Complaint/Hosp Course Assessment 1. Metastatic breast cancer with recurrent right pleural effusion. Cultures growing gram-positive cocci consistent with staph aureus. 2. Loculated pleural effusion possible empyema scheduled for decortication today. 3. 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 CT chest trace loculated pleural effusion possible empyema in addition to malignant effusion. 2. Continue oncology recommendations continues radiation therapy for CHIP PERSON metastasis 3. Continue antibiotic coverage for staph infection. Pending decortication. Problems: [facility]ARTINE[facility]RO [facility] Sep 12, 2017 10:46
[2017-09-12] MEDS: CEFTRIAXONE 1 GM/50 ML (PMX) 50 ML IVPB SCH (13:20)
[2017-09-12] MEDS ORDERED: MINERAL OIL LIGHT 10 ML VIAL ONE (13:42)
--- NOTE | 2017-09-12 13:57 | CONS ---
Date/Time of Note Date/Time of Note DATE: 09/12/17 TIME: 13:55 Consult Date/Type/Reason Admit Date/Time Sep 05, 2017 at 18:29 Initial Consult Date 09/07/17 Type of Consultation: ID Ordering Provider: MINDY NEGRON Objective Vital Signs Date Time Temp Pulse Resp B/P Pulse Ox O2 Delivery O2 Flow Rate FiO2 09/12/17 07:17 97.8 73 18 132/78 99 09/09/17 02:00 Room Air Intake and Output 09/11/17 09/11/17 09/12/17 15:00 23:00 07:00 Intake Total 300 ml 1620 ml 280 ml Balance 300 ml 1620 ml 280 ml Results/Medications Result Diagram: 09/12/1751109/12/17 0512 Results 24 hrs Laboratory Tests Test 09/11/17 17:35 09/11/17 20:08 09/12/17 00:49 09/12/17 05:11 Bedside Glucose 142 172 251 H 170 Test 09/12/17 05:12 09/12/17 09:28 09/12/17 13:19 White Blood Count 17.7 #H Red Blood Count 3.62 L Hemoglobin 8.1 L Hematocrit 26.7 L Mean Corpuscular Volume 73.8 L Mean Corpuscular Hemoglobin 22.4 L Mean Corpuscular Hemoglobin Concent 30.3 L Red Cell Distribution Width 22.3 H Platelet Count 198 # Mean Platelet Volume 8.5 Neutrophils % 78.0 H Lymphocytes % 8.8 L Monocytes % 5.4 Eosinophils % 0.0 Basophils % 0.1 Nucleated Red Blood Cells % 0.0 Neutrophils # 13.8 H Lymphocytes # 1.6 Monocytes # 1.0 H Eosinophils # 0.0 Basophils # 0.0 Nucleated Red Blood Cells # 0.0 Sodium Level 137 Potassium Level 3.9 Chloride Level 107 Carbon Dioxide Level 24 Anion Gap 10 Blood Urea Nitrogen 16 Creatinine 0.41 L Glucose Level 151 Calcium Level 8.2 L Phosphorus Level 3.6 Magnesium Level 1.7 Albumin 2.4 L Bedside Glucose 97 78 Medications Current Medications Dexamethasone (Decadron) 4 mg BID PO Last administered on 09/11/17 20:09; Admin Dose 4 MG; Start 09/05/17 at 21:00 Docusate Sodium (Colace) 200 mg QHS PO Last administered on 09/11/17 20:09; Admin Dose 200 MG; Start 09/05/17 at 21:00 Ondansetron HCl (Zofran Inj) 4 mg Q6H PRN IV NAUSEA AND/OR VOMITING; Start at 21:00 Acetaminophen (Tylenol Tab) 650 mg Q6H PRN PO PAIN LEVEL 1-3 OR FEVER; Start 09/05/17 at 21:00 Oxycodone/ Acetaminophen (Percocet (5/ 325)) 1 tab Q6H PRN PO MODERATE PAIN LEVEL 4-6; Start 09/05/17 at 21:00 Morphine Sulfate (morphine) 2 mg Q4H PRN IV SEVERE PAIN LEVEL 7-10; Start at 21:00 Docusate Sodium (Colace) 100 mg Q12H PRN PO CONSTIPATION; Start 09/05/17 at 21 :00 Magnesium Hydroxide (Milk Of Mag) 30 ml DAILY PRN PO CONSTIPATION; Start 09/05 at 21:00 Famotidine (Pepcid) 20 mg Q12 PO Last administered on 09/11/17 20:09; Admin Dose 20 MG; Start 09/05/17 at 21:00 Albuterol (Proventil 0.083% (Neb)) 2.5 mg Q2 PRN HHN SHORTNESS OF BREATH; Start 09/05/17 at 21:00 Miscellaneous Information 1 ea NOTE XX ; Start 09/05/17 at 21:30 Glucose (Glutose) 15 gm Q15M PRN PO DECREASED GLUCOSE; Start 09/05/17 at 21:30 Glucose (Glutose) 22.5 gm Q15M PRN PO DECREASED GLUCOSE; Start 09/05/17 at 21: 30 Dextrose (D50w Syringe) 25 ml Q15M PRN IV DECREASED GLUCOSE; Start 09/05/17 at 21:30 Dextrose (D50w Syringe) 50 ml Q15M PRN IV DECREASED GLUCOSE; Start 09/05/17 at 21:30 Glucagon (Glucagen) 1 mg Q15M PRN IM DECREASED GLUCOSE; Start 09/05/17 at 21: 30 Glucose (Glutose) 15 gm Q15M PRN BUCCAL DECREASED GLUCOSE; Start 09/05/17 at 21:30 Nystatin (Nystatin Powder) 1 applic BID TOP Last administered on 10/31/17at 09: 42; Admin Dose 1 APPLIC; Start 09/06/17 at 09:00 Tamoxifen Citrate (Nolvadex) 20 mg DAILY PO Last administered on 09/11/17 11: 17; Admin Dose 20 MG; Start 09/06/17 at 13:00 Diagnostic Test (Pha) 1 ea 1 ea 02 XX Last administered on 09/11/17 02:34; Admin Dose 1 EA; Start 09/07/17 at 02:00 Ceftriaxone Sodium 50 ml @ 100 mls/hr Q24H IVPB Last administered on 13:20; Admin Dose 100 MLS/HR; Start 09/08/17 at 14:00 Sodium Chloride (NS) 1,000 ml @ 70 mls/hr [id number] IV Last administered on 00:48; Admin Dose 70 MLS/HR; Start 09/12/17 at 00:00 Insulin Aspart (Novolog Insulin Pen) NOVOLOG *MILD* ALGORI... Q4 SC Last administered on 09/12/17 05:15; Admin Dose 1 UNIT; Start 09/12/17 at 01:00 Assessment/Plan Chief Complaint/Hosp Course SUBJECTIVE: The patient is alert, denies pain, discomfort. No fevers. Vital signs stable. MICROBIOLOGY: Pleural fluid culture grew oxacillin-sensitive Staphylococcus aureus. ANTIMICROBIALS: The patient is on Rocephin. INDWELLINGS: Right PleurX. PHYSICAL EXAMINATION: GENERAL: This is an obese, well-developed, middle-aged woman who is in no distress. HEENT: Head atraumatic, normocephalic. Sclerae anicteric. Buccal mucosa dry. NECK: Supple. CHEST: Rise symmetrical. Breath sounds clear, diminished to bases. HEART: S1, S2. ABDOMEN: Soft. Bowel tones present. EXTREMITIES: Without cyanosis. ASSESSMENT: 1. Systemic inflammatory response syndrome with persistent leukocytosis 2 to # 2. 2. Loculated right pleural effusion, possible empyema, with culture growing oxacillin-sensitive Staphylococcus aureus. 3. Metastatic breast cancer. 4. Obesity. 5. Diabetes. 6. History of craniectomy for brain metastasis. PLAN: The patient is stable. Continue abx. Pending VATS DW pt/staff Problems: ZULEYMA ALEX NP Sep 12, 2017 13:57
--- NOTE | 2017-09-12 14:36 | PN ---
Date/Time of Note Date/Time of Note DATE: 09/12/17 TIME: 14:33 Assessment/Plan VTE Prophylaxis VTE Prophylaxis Intervention: other Lines/Catheters IV Catheter Type (from Nrs): Peripheral IV Assessment/Plan Assessment/Plan 1. Dysfunctional Pleurx catheter - Pulmonology on board and consultation appreciated - Radiology adjusted catheter placement - Respiratory status stable at this time 2. Cellulitis, area around catheter - ID on board and recommendations appreciated. Continue on antibiotics 3. Empyema?, staph aureus. - CT chest showed trace loculated pleural effusion with possible empyema in addition to malignant effusion. - CT surgery on board and plans for VATS and pleurodesis this afternoon - Continue IV antibiotics per ID - Ultrasound-guided thoracentesis performed, cultures showing staph aureus 4. Metastatic breast cancer, lung, liver, brain, s/p craniectomy - currently receiving radiation therapy and tamoxifen and Decadron - Heme/onc on board and consultation appreciated 5. Diabetes mellitus - Currently stable 6. Obesity - Counseled about diet and improving exercise routine when stable 7. Disposition - VATS today Subjective 24 Hr Interval Summary Free Text/Dictation Patient doing well and seen this am. Received 1 unit pRBC which she tolerated well. Plans for VATS today. No acute overnight events. Exam/Review of Systems Vital Signs Vitals Vital Signs Date Time Temp Pulse Resp B/P Pulse Ox O2 Delivery O2 Flow Rate FiO2 09/12/17 07:17 97.8 73 18 132/78 99 09/09/17 02:00 Room Air Intake and Output 09/11/17 09/11/17 09/12/17 15:00 23:00 07:00 Intake Total 300 ml 1620 ml 280 ml Balance 300 ml 1620 ml 280 ml Exam General: Patient in NAD. awake and alert Head: R side craniectomy site healing well. Eyes: EOMI, pupils reactive to light Neck: Supple, nontender, midline Respiratory: decreased lung sounds on the R Cardiovascular: regular rate, no obvious murmurs Gastrointestinal: non-tender to palpation, bowel sounds heard. Neurological: Moves all extremities spontaneously Skin: mild erythematous skin around pleurx cath site Results Result Diagram: 09/12/17 0512 09/12/17 0512 Results 24 hrs Laboratory Tests Test 09/11/17 17:35 09/11/17 20:08 09/12/17 00:49 09/12/17 05:11 Bedside Glucose 142 172 251 H 170 Test 09/12/17 05:12 09/12/17 09:28 09/12/17 13:19 White Blood Count 17.7 #H Red Blood Count 3.62 L Hemoglobin 8.1 L Hematocrit 26.7 L Mean Corpuscular Volume 73.8 L Mean Corpuscular Hemoglobin 22.4 L Mean Corpuscular Hemoglobin Concent 30.3 L Red Cell Distribution Width 22.3 H Platelet Count 198 # Mean Platelet Volume 8.5 Neutrophils % 78.0 H Lymphocytes % 8.8 L Monocytes % 5.4 Eosinophils % 0.0 Basophils % 0.1 Nucleated Red Blood Cells % 0.0 Neutrophils # 13.8 H Lymphocytes # 1.6 Monocytes # 1.0 H Eosinophils # 0.0 Basophils # 0.0 Nucleated Red Blood Cells # 0.0 Sodium Level 137 Potassium Level 3.9 Chloride Level 107 Carbon Dioxide Level 24 Anion Gap 10 Blood Urea Nitrogen 16 Creatinine 0.41 L Glucose Level 151 Calcium Level 8.2 L Phosphorus Level 3.6 Magnesium Level 1.7 Albumin 2.4 L Bedside Glucose 97 78 Medications Medications Current Medications Dexamethasone (Decadron) 4 mg BID PO Last administered on 09/11/17 20:09; Admin Dose 4 MG; Start 09/05/17 at 21:00 Docusate Sodium (Colace) 200 mg QHS PO Last administered on 09/11/17 20:09; Admin Dose 200 MG; Start 09/05/17 at 21:00 Ondansetron HCl (Zofran Inj) 4 mg Q6H PRN IV NAUSEA AND/OR VOMITING; Start at 21:00 Acetaminophen (Tylenol Tab) 650 mg Q6H PRN PO PAIN LEVEL 1-3 OR FEVER; Start 09/05/17 at 21:00 Oxycodone/ Acetaminophen (Percocet (5/ 325)) 1 tab Q6H PRN PO MODERATE PAIN LEVEL 4-6; Start 09/05/17 at 21:00 Morphine Sulfate (morphine) 2 mg Q4H PRN IV SEVERE PAIN LEVEL 7-10; Start at 21:00 Docusate Sodium (Colace) 100 mg Q12H PRN PO CONSTIPATION; Start 09/05/17 at 21 :00 Magnesium Hydroxide (Milk Of Mag) 30 ml DAILY PRN PO CONSTIPATION; Start 09/05 at 21:00 Famotidine (Pepcid) 20 mg Q12 PO Last administered on 09/11/17 20:09; Admin Dose 20 MG; Start 09/05/17 at 21:00 Albuterol (Proventil 0.083% (Neb)) 2.5 mg Q2 PRN HHN SHORTNESS OF BREATH; Start 09/05/17 at 21:00 Miscellaneous Information 1 ea NOTE XX ; Start 09/05/17 at 21:30 Glucose (Glutose) 15 gm Q15M PRN PO DECREASED GLUCOSE; Start 09/05/17 at 21:30 Glucose (Glutose) 22.5 gm Q15M PRN PO DECREASED GLUCOSE; Start 09/05/17 at 21: 30 Dextrose (D50w Syringe) 25 ml Q15M PRN IV DECREASED GLUCOSE; Start 09/05/17 at 21:30 Dextrose (D50w Syringe) 50 ml Q15M PRN IV DECREASED GLUCOSE; Start 09/05/17 at 21:30 Glucagon (Glucagen) 1 mg Q15M PRN IM DECREASED GLUCOSE; Start 09/05/17 at 21: 30 Glucose (Glutose) 15 gm Q15M PRN BUCCAL DECREASED GLUCOSE; Start 09/05/17 at 21:30 Nystatin (Nystatin Powder) 1 applic BID TOP Last administered on 09/12/17 09: 42; Admin Dose 1 APPLIC; Start 09/06/17 at 09:00 Tamoxifen Citrate (Nolvadex) 20 mg DAILY PO Last administered on 09/11/17 11: 17; Admin Dose 20 MG; Start 09/06/17 at 13:00 Diagnostic Test (Pha) 1 ea 1 ea 02 XX Last administered on 09/11/17 02:34; Admin Dose 1 EA; Start 09/07/17 at 02:00 Ceftriaxone Sodium 50 ml @ 100 mls/hr Q24H IVPB Last administered on 13:20; Admin Dose 100 MLS/HR; Start 09/08/17 at 14:00 Sodium Chloride (NS) 1,000 ml @ 70 mls/hr [id number] IV Last administered on 00:48; Admin Dose 70 MLS/HR; Start 09/12/17 at 00:00 Insulin Aspart (Novolog Insulin Pen) NOVOLOG *MILD* ALGORI... Q4 SC Last administered on 09/12/17t 05:15; Admin Dose 1 UNIT; Start 09/12/17 at 01:00 ZEUS TABOR MD Sep 12, 2017 14:35
--- NOTE | 2017-09-12 16:02 | HPN ---
Date/Time of Note Date/Time of Note DATE: 09/12/17 TIME: 16:02 Interval H&P Admission Note Pt. seen H&P reviewed: No system changes DEVIKA MENA MD Sep 12, 2017 16:02
[2017-09-12] MEDS ORDERED: BUPIVACAINE 0.5%/EPI (SDV) 30 ML INJ ONE (16:05)
[2017-09-12] MEDS ORDERED: LIDOCAINE 0.5% (MDV) 50 ML INJ ONE (16:05)
[2017-09-12] MEDS ORDERED: THROMBIN 5000 UNIT VIAL ONE (16:05)
[2017-09-12] MEDS ORDERED: MIDAZOLAM 1 MG/ML 2 ML INJ ONE ×2 (17:03→17:32)
[2017-09-12] MEDS ORDERED: PHENYLephrine (100 MCG/ML) 5ML SYG ONE (17:19)
[2017-09-12] MEDS ORDERED: ROPIVACAINE 0.5 % 30 ML VIAL ONE (18:18)
[2017-09-12] MEDS ORDERED: SOD CHLORIDE 0.9% 250 ML IV* ONE (18:54)
--- NOTE | 2017-09-12 19:19 | OPR ---
Date/Time of Note Date/Time of Note DATE: 09/12/17 TIME: 19:17 Operative Report Procedure Date: Sep 12, 2017 Preoperative Diagnosis Right pleural effusion Postoperative Diagnosis same Operation/Procedure Performed Right VATS pleurodesis decortication Surgeon see signature line Radio Recorder none Anesthesia Type: general Estimated Blood Loss: 50 - 100 ml's Transfusion 1 unit PRBC Specimen peel Grafts/Implants none Tubes/Drains CT Complications none Pt Condition Post Procedure: critical Disposition: PACU Procedure Description Dictated DEVIKA MENA MD Sep 12, 2017 19:19
[2017-09-12] MEDS ORDERED: ETOMIDATE 20 MG INJ ONE (19:28)
[2017-09-12] MEDS ORDERED: ROCURONIUM 50 MG INJ ONE (19:28)
[2017-09-12] MEDS ORDERED: LIDOCAINE 2% (SDV) 5 ML INJ ONE (19:28)
[2017-09-12] MEDS ORDERED: ONDANSETRON 4 MG INJ ONE (19:29)
[2017-09-12] MEDS ORDERED: NEOSTIGMINE 3 MG/3 ML SYRINGE ONE (19:29)
[2017-09-12] MEDS ORDERED: GLYCOPYRROLATE 0.4 MG INJ ONE (19:29)
[2017-09-12] MEDS ORDERED: CEFAZOLIN 1 GM INJ ONE (19:32)
[2017-09-12] MEDS ORDERED: METOCLOPRAMIDE 10 MG INJ IV PRN (20:00)
[2017-09-12] MEDS ORDERED: ONDANSETRON 4 MG INJ IV PRN (20:00)
[2017-09-12] MEDS ORDERED: NALOXONE (0.4 MG/ML) INJ IV PRN (20:00)
[2017-09-12] MEDS ORDERED: FENTAnyl 50 MCG/ML VIAL IV PRN (20:00)
[2017-09-12] MEDS ORDERED: FENTAnyl 2MCG/ML-ROPIV 0.2% 100 ML BAG EPI SCH (20:00)
[2017-09-12] MEDS ORDERED: MEPERIDINE 25 MG INJ IV PRN (20:00)
[2017-09-12] MEDS ORDERED: morphine (1 MG/ML) 10ML SYRINGE IV PRN ×2 (20:00)
[2017-09-12] MEDS ORDERED: DIPHENHYDRAMINE 50 MG INJ IV PRN (20:00)
[2017-09-12] MEDS ORDERED: NORepinephrine 8MG/250 ML (PMX 0 ML ONE (20:08)
[2017-09-12] MEDS ORDERED: LACTATED RINGER'S 500 ML IV ONE (20:30)
[2017-09-12] MEDS: morphine 2 MG INJ IV PRN (20:41)
[2017-09-12] MEDS ORDERED: NORepinephrine 8MG/250 ML (PMX 250 ML IV SCH (21:00)
[2017-09-12] MEDS: DOCUSATE SODIUM 100 MG CAP PO SCH (21:00)
[2017-09-12 21:52] LABS: ABNORMAL IP MESSAGE 1; BASOPHILS % 0.2 % (0.0-2.0); EOSINOPHILS % 0.1 % (0.0-7.0); HEMATOCRIT 28.6 % (37.0-47.0); LYMPHOCYTES # 2.8 10^3/ul (0.8-2.9); LYMPHOCYTES % 14.9 % (15.0-51.0); MEAN CORPUSCULAR HEMOGLOBIN 24.4 pg (29.0-33.0); MEAN CORPUSCULAR HGB CONC 31.5 g/dl (32.0-37.0); MEAN CORPUSCULAR VOLUME 77.5 fl (82.0-101.0); MEAN PLATELET VOLUME 8.6 fl (7.4-10.4); MONOCYTE # 1.2 10^3/ul (0.3-0.9); MONOCYTES % 6.6 % (0.0-11.0); NEUTROPHIL # 13.8 10^3/ul (1.6-7.5); NEUTROPHILS % 73.6 % (39.0-77.0); PLATELET COUNT 192 10^3/UL (140-415); RED BLOOD COUNT 3.69 10^6/ul (4.20-5.40); RED CELL DISTRIBUTION WIDTH 22.5 % (11.5-14.5); WHITE BLOOD COUNT 18.7 10^3/ul (4.8-10.8)
[2017-09-12 21:58] LABS: POSITIVE DIFF @See below
[2017-09-13] VITALS (23 sets, daily range): BP systolic 81–131; BP diastolic 48–80; PULSE 68–98; RESP 12–27
[2017-09-13] MEDS: INSULIN ASPART [NOVOLOG] 3 ML PEN SC SCH ×6 (01:00→21:21)
[2017-09-13] MEDS: ACCU-CHEK XX SCH (02:00)
--- NOTE | 2017-09-13 02:06 | OPR ---
DATE OF OPERATION: PREOPERATIVE DIAGNOSIS: Right malignant pleural effusion. POSTOPERATIVE DIAGNOSIS: Right malignant pleural effusion. PROCEDURE: 1. Video-assisted thoracic surgery, pulmonary decortication. 2. Right pulmonary pleurodesis. 3. Bronchoscopy. SURGEON: Devika Estrada MD ANESTHESIA: General. CONSENT: Risks, benefits, complications, alternative therapies explained to the patient and the [facility] babs, consent obtained. OPERATIVE TECHNIQUE: The patient was placed in supine position, prepped and draped in usual sterile fashion, intubated. Bronchoscopy was done. No evidence of any endobronchial lesions were noted. Patient was placed in a left lateral decubitus position, timeout was called, antibiotics were given, prepped and draped in usual sterile fashion. I made a 1 cm incision, 7th intercostal space, mid ax illary line. Incision was taken down to the subcutaneous tissue which was then opened using electro cautery. A 12 mm trocar was advanced into the pleural cavity. Bronchoscopy was started. I made a second 1 cm incision anterior axillary line, 5th intercostal space. Large amounts of was note d to be around the lung, which was then removed. The lung was decorticated. 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 Decortication was completed. Pleurodesis was do ne with a combination of electrocautery, argon beam coagulation and 2 bottles of talc. A 32-Yoruba chest tube and a 19-Jesus was placed into the trocar incisions, brought out through a lower stab wou nd, secured to skin using silk sutures. Patient tolerated procedure well. Dictated By: DEVIKA LEMA/AFIA Conf#: [id number] DID#: [id number] CC: MINDY NEGRON;*EndCC*
[2017-09-13] MEDS: NYSTATIN 30 GM POWDER BTL TOP SCH ×3 (02:47→21:29)
[2017-09-13] MEDS: morphine 2 MG INJ IV PRN (02:47)
[2017-09-13 04:24] LABS: ABNORMAL IP MESSAGE 1; BASOPHILS % 0.2 % (0.0-2.0); EOSINOPHILS % 0.1 % (0.0-7.0); HEMATOCRIT 30.7 % (37.0-47.0); HEMOGLOBIN 9.5 g/dl (12.0-16.0); LYMPHOCYTES # 2.9 10^3/ul (0.8-2.9); LYMPHOCYTES % 16.5 % (15.0-51.0); MEAN CORPUSCULAR HEMOGLOBIN 23.9 pg (29.0-33.0); MEAN CORPUSCULAR HGB CONC 30.9 g/dl (32.0-37.0); MEAN CORPUSCULAR VOLUME 77.1 fl (82.0-101.0); MEAN PLATELET VOLUME 8.4 fl (7.4-10.4); MONOCYTE # 1.2 10^3/ul (0.3-0.9); NEUTROPHIL # 12.4 10^3/ul (1.6-7.5); NEUTROPHILS % 72.1 % (39.0-77.0); PLATELET COUNT 178 10^3/UL (140-415); RED BLOOD COUNT 3.98 10^6/ul (4.20-5.40); RED CELL DISTRIBUTION WIDTH 22.3 % (11.5-14.5); WHITE BLOOD COUNT 17.2 10^3/ul (4.8-10.8)
[2017-09-13 04:35] LABS: POSITIVE DIFF @See below
[2017-09-13 04:46] LABS: ALBUMIN 2.4 g/dl (3.3-4.9); CALCIUM 7.4 mg/dl (8.4-10.2); CREATININE 0.45 mg/dl (0.44-1.00); MAGNESIUM 1.6 mg/dl (1.7-2.5); PHOSPHORUS 4.2 mg/dl (2.5-4.9); POTASSIUM 3.4 mmol/L (3.5-5.1)
[2017-09-13 07:31] LABS: ADD UMIC YES; UR ASCORBIC ACID NEGATIVE (NEGATIVE); UR BILIRUBIN (Dip) NEGATIVE (NEGATIVE); UR BLOOD (Dip) 2+ mg/dL (NEGATIVE); UR CLARITY SLIGHTLY CLOUDY (CLEAR); UR COLOR YELLOW (YELLOW); UR GLUCOSE (Dip) NEGATIVE (NEGATIVE); UR KETONES (Dip) NEGATIVE (NEGATIVE); UR LEUKOCYTE ESTERASE (Dip) NEGATIVE Leu/ul (NEGATIVE); UR MUCUS MANY /HPF (NONE SEEN); UR NITRITE (Dip) NEGATIVE (NEGATIVE); UR RBC 17 /HPF (0-5); UR SPECIFIC GRAVITY (Dip) 1.015 (1.003-1.030); UR TOTAL PROTEIN (Dip) NEGATIVE (NEGATIVE); UR UROBILINOGEN (Dip) NEGATIVE (NEGATIVE)
[2017-09-13] MEDS ORDERED: POTASSIUM CHLORIDE (SR) 20 MEQ TAB PO STA (08:08)
[2017-09-13] MEDS: FAMOTIDINE 20 MG TAB PO SCH ×2 (08:10→21:15)
[2017-09-13] MEDS: DEXAMETHASONE 4 MG TAB PO SCH ×2 (08:11→21:16)
[2017-09-13] MEDS: TAMOXIFEN 10 MG TAB PO SCH (08:15)
[2017-09-13] MEDS ORDERED: MAGNESIUM SULFATE 4 GM/100 ML 100 ML IVPB ONE (09:00)
--- NOTE | 2017-09-13 09:42 | PN ---
Date/Time of Note Date/Time of Note DATE: 09/13/17 TIME: 09:42 Assessment/Plan VTE Prophylaxis VTE Prophylaxis Intervention: contraindicated Lines/Catheters [facility] A Line Urinary Cath still in place: Yes Reason Cath still needed: terminal illness/intractable pain Assessment/Plan Assessment/Plan 1. Empyema 2/2 staph aureus. - Patient is s/p VATS on 09/12/17 and doing well after procedure. Chest tube in place with serosanguineous drainage - CT chest showed trace loculated pleural effusion with possible empyema in addition to malignant effusion. - CT surgery on board and appreciate consultation - Continue IV antibiotics per ID - Ultrasound-guided thoracentesis performed, cultures showing staph aureus 2. Dysfunctional Pleurx catheter - Pulmonology on board and consultation appreciated - Radiology adjusted catheter placement - Respiratory status stable at this time 3. Cellulitis, area around catheter - ID on board and recommendations appreciated. Continue on antibiotics 4. Metastatic breast cancer, lung, liver, brain, s/p craniectomy - currently receiving radiation therapy and tamoxifen and Decadron - Heme/onc on board and consultation appreciated 5. Diabetes mellitus - Currently stable 6. Obesity - Counseled about diet and improving exercise routine when able 7. Disposition - Monitor in ICU >30 minutes of critical care spent with patient and mother at bedside. All specialist notes reviewed as well as labs and imaging Subjective 24 Hr Interval Summary Free Text/Dictation patient experiencing pain at chest tube insertion site but states controlled on IV morphine. No acute issues overnight. Chest tube in place and still has significant drainage. Exam/Review of Systems Vital Signs Vitals Vital Signs Date Time Temp Pulse Resp B/P Pulse Ox O2 Delivery O2 Flow Rate FiO2 09/13/17 08:00 100.4 98 27 103/60 97 Nasal Cannula 2.0 Intake and Output 09/12/17 09/12/17 09/13/17 15:00 23:00 07:00 Intake Total 260 ml 1060 ml 590 ml Output Total 1180 ml 995 ml Balance 260 ml -120 ml -405 ml Exam General: Patient in moderate distress secondary to pain at site of chest tube Head: R side craniectomy site healing well. Eyes: EOMI, pupils reactive to light Neck: Supple, nontender, midline Respiratory: diminished air entry with chest tube in place draining sero sanguinous fluid Cardiovascular: regular rate, no obvious murmurs Gastrointestinal: non-tender to palpation, bowel sounds heard. Neurological: Moves all extremities spontaneously Results Result Diagram: 09/13/17 0415 09/13/17 0415 Results 24 hrs Laboratory Tests Test 09/12/17 13:19 09/12/17 20:28 09/12/17 21:23 09/13/17 01:40 Bedside Glucose 78 114 117 White Blood Count 18.7 H Red Blood Count 3.69 L Hemoglobin 9.0 L Hematocrit 28.6 L Mean Corpuscular Volume 77.5 L Mean Corpuscular Hemoglobin 24.4 L Mean Corpuscular Hemoglobin Concent 31.5 L Red Cell Distribution Width 22.5 H Platelet Count 192 Mean Platelet Volume 8.6 Neutrophils % 73.6 Lymphocytes % 14.9 L Monocytes % 6.6 Eosinophils % 0.1 Basophils % 0.2 Nucleated Red Blood Cells % 0.0 Neutrophils # 13.8 H Lymphocytes # 2.8 Monocytes # 1.2 H Eosinophils # 0.0 Basophils # 0.0 Nucleated Red Blood Cells # 0.0 Test 09/13/17 04:15 09/13/17 05:25 09/13/17 05:35 09/13/17 07:00 White Blood Count 17.2 H Red Blood Count 3.98 L Hemoglobin 9.5 L Hematocrit 30.7 L Mean Corpuscular Volume 77.1 L Mean Corpuscular Hemoglobin 23.9 L Mean Corpuscular Hemoglobin Concent 30.9 L Red Cell Distribution Width 22.3 H Platelet Count 178 Mean Platelet Volume 8.4 Neutrophils % 72.1 Lymphocytes % 16.5 Monocytes % 7.0 Eosinophils % 0.1 Basophils % 0.2 Nucleated Red Blood Cells % 0.0 Neutrophils # 12.4 H Lymphocytes # 2.9 Monocytes # 1.2 H Eosinophils # 0.0 Basophils # 0.0 Nucleated Red Blood Cells # 0.0 Sodium Level 136 Potassium Level 3.4 L Chloride Level 104 Carbon Dioxide Level 25 Anion Gap 10 Blood Urea Nitrogen 15 Creatinine 0.45 Glucose Level 96 # Calcium Level 7.4 L Phosphorus Level 4.2 Magnesium Level 1.6 L Albumin 2.4 L Lab Scanned Report BLOOD TRANSFUSION Bedside Glucose 98 Urine Color YELLOW Urine Clarity SLIGHTLY CLOUDY A Urine pH 5.0 Urine Specific [place] 1.015 Urine Ketones NEGATIVE Urine Nitrite NEGATIVE Urine Bilirubin NEGATIVE Urine Urobilinogen NEGATIVE Urine Leukocyte Esterase NEGATIVE Urine Microscopic RBC 17 H Urine Microscopic WBC 4 Urine Mucus MANY A Urine Hemoglobin 2+ H Urine Glucose NEGATIVE Urine Total Protein NEGATIVE Test 09/13/17 08:17 Bedside Glucose 91 Medications Medications Current Medications Dexamethasone (Decadron) 4 mg BID PO Last administered on 09/13/17 08:11; Admin Dose 4 MG; Start 09/05/17 at 21:00 Docusate Sodium (Colace) 200 mg QHS PO Last administered on 09/11/17 20:09; Admin Dose 200 MG; Start 09/05/17 at 21:00 Ondansetron HCl (Zofran Inj) 4 mg Q6H PRN IV NAUSEA AND/OR VOMITING; Start at 21:00 Acetaminophen (Tylenol Tab) 650 mg Q6H PRN PO PAIN LEVEL 1-3 OR FEVER Last administered on 09/13/17 07:13; Admin Dose 650 MG; Start 09/05/17 at 21:00 Oxycodone/ Acetaminophen (Percocet (5/ 325)) 1 tab Q6H PRN PO MODERATE PAIN LEVEL 4-6; Start 09/05/17 at 21:00 Morphine Sulfate (morphine) 2 mg Q4H PRN IV SEVERE PAIN LEVEL 7-10 Last administered on 09/13/17 02:47; Admin Dose 2 MG; Start 09/05/17 at 21:00 Docusate Sodium (Colace) 100 mg Q12H PRN PO CONSTIPATION; Start 09/05/17 at 21 :00 Magnesium Hydroxide (Milk Of Mag) 30 ml DAILY PRN PO CONSTIPATION; Start 09/05 at 21:00 Famotidine (Pepcid) 20 mg Q12 PO Last administered on 09/13/17 08:10; Admin Dose 20 MG; Start 09/05/17 at 21:00 Albuterol (Proventil 0.083% (Neb)) 2.5 mg Q2 PRN HHN SHORTNESS OF BREATH; Start 09/05/17 at 21:00 Miscellaneous Information 1 ea NOTE XX ; Start 09/05/17 at 21:30 Glucose (Glutose) 15 gm Q15M PRN PO DECREASED GLUCOSE; Start 09/05/17 at 21:30 Glucose (Glutose) 22.5 gm Q15M PRN PO DECREASED GLUCOSE; Start 09/05/17 at 21: 30 Dextrose (D50w Syringe) 25 ml Q15M PRN IV DECREASED GLUCOSE; Start 09/05/17 at 21:30 Dextrose (D50w Syringe) 50 ml Q15M PRN IV DECREASED GLUCOSE; Start 09/05/17 at 21:30 Glucagon (Glucagen) 1 mg Q15M PRN IM DECREASED GLUCOSE; Start 09/05/17 at 21: 30 Glucose (Glutose) 15 gm Q15M PRN BUCCAL DECREASED GLUCOSE; Start 09/05/17 at 21:30 Nystatin (Nystatin Powder) 1 applic BID TOP Last administered on 09/13/17 08: 19; Admin Dose 1 APPLIC; Start 09/06/17 at 09:00 Tamoxifen Citrate (Nolvadex) 20 mg DAILY PO Last administered on 09/13/17 08: 15; Admin Dose 20 MG; Start 09/06/17 at 13:00 Diagnostic Test (Pha) 1 ea 1 ea 02 XX Last administered on 09/11/17 02:34; Admin Dose 1 EA; Start 09/07/17 at 02:00 Ceftriaxone Sodium 50 ml @ 100 mls/hr Q24H IVPB Last administered on 13:20; Admin Dose 100 MLS/HR; Start 09/08/17 at 14:00 Sodium Chloride (NS) 1,000 ml @ 70 mls/hr [id number] IV Last administered on 20:36; Admin Dose 70 MLS/HR; Start 09/12/17 at 00:00 Insulin Aspart NOVOLOG *MILD* ALGORI... Q4 SC Last administered on 09/12/17 05:15; Admin Dose 1 UNIT; Start 09/12/17 at 01:00 Norepinephrine 250 ml @ 1.875 mls/ hr TITRATE IV ; Start 09/12/17 at 21:00 Magnesium Sulfate (Magnesium Sulfate 4 Gm/100 ml) 100 ml @ 25 mls/hr ONCE ONCE IVPB ; Start 09/13/17 at 09:00; Stop 09/13/17 at 12:59 ZEUS TABOR MD Sep 13, 2017 09:42
[2017-09-13 09:50] LABS: POST-TRANSFUSION BILIRUBIN 0.5 mg/dl
[2017-09-13] MEDS: SOD CHLORIDE 0.9% 1,000 ML IV SCH (10:43)
--- NOTE | 2017-09-13 11:57 | CONS ---
Date/Time of Note Date/Time of Note DATE: 09/13/17 TIME: 11:56 Consult Date/Type/Reason Admit Date/Time Sep 05, 2017 at 18:29 Initial Consult Date 09/06/17 Type of Consultation: Pulmonary Ordering Provider: MINDY NEGRON Subjective Patient status post VATS decortication. Is comfortable this morning. Chest tube in place with significant drainage. Objective Vital Signs Date Time Temp Pulse Resp B/P Pulse Ox O2 Delivery O2 Flow Rate FiO2 09/13/17 08:00 100.4 98 27 103/60 97 Nasal Cannula 2.0 Intake and Output 09/12/17 09/12/17 09/13/17 15:00 23:00 07:00 Intake Total 260 ml 1060 ml 590 ml Output Total 1180 ml 995 ml Balance 260 ml -120 ml -405 ml Exam GENERAL: Well-developed lady comfortable at rest VITAL SIGNS: per chart NECK: Supple. No JVD or lymphadenopathy. CARDIAC EXAM: S1, S2. No added sounds or murmurs. CHEST: Diminished air entry right base. Chest tube in place. ABDOMEN: Soft, nontender. No guarding or rebound. EXTREMITIES: No cyanosis, clubbing or edema. NEUROLOGIC: Generalized weakness. No focal deficits. Results/Medications Result Diagram: 09/13/17 0415 09/13/17 0415 Results 24 hrs Laboratory Tests Test 09/12/17 13:19 09/12/17 20:28 09/12/17 21:23 09/13/17 01:40 Bedside Glucose 78 114 117 White Blood Count 18.7 H Red Blood Count 3.69 L Hemoglobin 9.0 L Hematocrit 28.6 L Mean Corpuscular Volume 77.5 L Mean Corpuscular Hemoglobin 24.4 L Mean Corpuscular Hemoglobin Concent 31.5 L Red Cell Distribution Width 22.5 H Platelet Count 192 Mean Platelet Volume 8.6 Neutrophils % 73.6 Lymphocytes % 14.9 L Monocytes % 6.6 Eosinophils % 0.1 Basophils % 0.2 Nucleated Red Blood Cells % 0.0 Neutrophils # 13.8 H Lymphocytes # 2.8 Monocytes # 1.2 H Eosinophils # 0.0 Basophils # 0.0 Nucleated Red Blood Cells # 0.0 Test 09/13/17 04:15 09/13/17 05:25 09/13/17 05:35 09/13/17 07:00 White Blood Count 17.2 H Red Blood Count 3.98 L Hemoglobin 9.5 L Hematocrit 30.7 L Mean Corpuscular Volume 77.1 L Mean Corpuscular Hemoglobin 23.9 L Mean Corpuscular Hemoglobin Concent 30.9 L Red Cell Distribution Width 22.3 H Platelet Count 178 Mean Platelet Volume 8.4 Neutrophils % 72.1 Lymphocytes % 16.5 Monocytes % 7.0 Eosinophils % 0.1 Basophils % 0.2 Nucleated Red Blood Cells % 0.0 Neutrophils # 12.4 H Lymphocytes # 2.9 Monocytes # 1.2 H Eosinophils # 0.0 Basophils # 0.0 Nucleated Red Blood Cells # 0.0 Sodium Level 136 Potassium Level 3.4 L Chloride Level 104 Carbon Dioxide Level 25 Anion Gap 10 Blood Urea Nitrogen 15 Creatinine 0.45 Glucose Level 96 # Calcium Level 7.4 L Phosphorus Level 4.2 Magnesium Level 1.6 L Albumin 2.4 L Lab Scanned Report BLOOD TRANSFUSION Bedside Glucose 98 Urine Color YELLOW Urine Clarity SLIGHTLY CLOUDY A Urine pH 5.0 Urine Specific [place] 1.015 Urine Ketones NEGATIVE Urine Nitrite NEGATIVE Urine Bilirubin NEGATIVE Urine Urobilinogen NEGATIVE Urine Leukocyte Esterase NEGATIVE Urine Microscopic RBC 17 H Urine Microscopic WBC 4 Urine Mucus MANY A Urine Hemoglobin 2+ H Urine Glucose NEGATIVE Urine Total Protein NEGATIVE Test 09/13/17 08:17 Bedside Glucose 91 Medications Current Medications Dexamethasone (Decadron) 4 mg BID PO Last administered on 09/13/17 08:11; Admin Dose 4 MG; Start 09/05/17 at 21:00 Docusate Sodium (Colace) 200 mg QHS PO Last administered on 09/11/17 20:09; Admin Dose 200 MG; Start 09/05/17 at 21:00 Ondansetron HCl (Zofran Inj) 4 mg Q6H PRN IV NAUSEA AND/OR VOMITING; Start at 21:00 Acetaminophen (Tylenol Tab) 650 mg Q6H PRN PO PAIN LEVEL 1-3 OR FEVER Last administered on 09/13/17 07:13; Admin Dose 650 MG; Start 09/05/17 at 21:00 Oxycodone/ Acetaminophen (Percocet (5/ 325)) 1 tab Q6H PRN PO MODERATE PAIN LEVEL 4-6; Start 09/05/17 at 21:00 Morphine Sulfate (morphine) 2 mg Q4H PRN IV SEVERE PAIN LEVEL 7-10 Last administered on 09/13/17 02:47; Admin Dose 2 MG; Start 09/05/17 at 21:00 Docusate Sodium (Colace) 100 mg Q12H PRN PO CONSTIPATION; Start 09/05/17 at 21 :00 Magnesium Hydroxide (Milk Of Mag) 30 ml DAILY PRN PO CONSTIPATION; Start 09/05 at 21:00 Famotidine (Pepcid) 20 mg Q12 PO Last administered on 09/13/17 08:10; Admin Dose 20 MG; Start 09/05/17 at 21:00 Albuterol (Proventil 0.083% (Neb)) 2.5 mg Q2 PRN HHN SHORTNESS OF BREATH; Start 09/05/17 at 21:00 Miscellaneous Information 1 ea NOTE XX ; Start 09/05/17 at 21:30 Glucose (Glutose) 15 gm Q15M PRN PO DECREASED GLUCOSE; Start 09/05/17 at 21:30 Glucose (Glutose) 22.5 gm Q15M PRN PO DECREASED GLUCOSE; Start 09/05/17 at 21: 30 Dextrose (D50w Syringe) 25 ml Q15M PRN IV DECREASED GLUCOSE; Start 09/05/17 at 21:30 Dextrose (D50w Syringe) 50 ml Q15M PRN IV DECREASED GLUCOSE; Start 09/05/17 at 21:30 Glucagon (Glucagen) 1 mg Q15M PRN IM DECREASED GLUCOSE; Start 09/05/17 at 21: 30 Glucose (Glutose) 15 gm Q15M PRN BUCCAL DECREASED GLUCOSE; Start 09/05/17 at 21:30 Nystatin (Nystatin Powder) 1 applic BID TOP Last administered on 09/13/17 08: 19; Admin Dose 1 APPLIC; Start 09/06/17 at 09:00 Tamoxifen Citrate (Nolvadex) 20 mg DAILY PO Last administered on 09/13/17 08: 15; Admin Dose 20 MG; Start 09/06/17 at 13:00 Diagnostic Test (Pha) 1 ea 1 ea 02 XX Last administered on 09/11/17 02:34; Admin Dose 1 EA; Start 09/07/17 at 02:00 Ceftriaxone Sodium 50 ml @ 100 mls/hr Q24H IVPB Last administered on 13:20; Admin Dose 100 MLS/HR; Start 09/08/17 at 14:00 Sodium Chloride (NS) 1,000 ml @ 70 mls/hr [id number] IV Last administered on 09/13 10:43; Admin Dose 70 MLS/HR; Start 09/12/17 at 00:00 Insulin Aspart NOVOLOG *MILD* ALGORI... Q4 SC Last administered on 09/12/17 05:15; Admin Dose 1 UNIT; Start 09/12/17 at 01:00 Norepinephrine 250 ml @ 1.875 mls/ hr TITRATE IV ; Start 09/12/17 at 21:00 Magnesium Sulfate (Magnesium Sulfate 4 Gm/100 ml) 100 ml @ 25 mls/hr ONCE ONCE IVPB Last administered on 09/13/17 10:38; Admin Dose 25 MLS/HR; Start at 09:00; Stop 09/13/17 at 12:59 Assessment/Plan Chief Complaint/Hosp Course Assessment 1. Metastatic breast cancer with recurrent right pleural effusion. Cultures growing gram-positive cocci consistent with staph aureus. 2. Loculated pleural effusion possible empyema status post decortication and pleurodesis. 3. 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 Continue chest tube drainage. Await pleural fluid cultures. We will continue current antibiotics. 2. Continue oncology recommendations continues radiation therapy for VAULT INSTALLER metastasis 3. Continue antibiotic coverage for staph infection. Continue ICU care today. Anticipate transfer to telemetry tomorrow if remains stable. Problems: MARTINEZ MASCORRO MD, [facility] Sep 13, 2017 11:57
[2017-09-13] MEDS: CEFTRIAXONE 1 GM/50 ML (PMX) 50 ML IVPB SCH (13:57)
--- NOTE | 2017-09-13 14:36 | PN ---
DATE: 09/13/2017 SUBJECTIVE: No acute changes. The patient is awake, feels good. Denies pain, looks comfortable. INDWELLINGS: Right IJ triple-lumen catheter, left radial A-line, right-sided chest tube. OBJECTIVE: VITAL SIGNS: His temperature 100.4, pulse 98, respirations 27, blood pressure 103/60, saturation 97% on 2 liters nasal cannula. WBC 17.2, H and H 9.5 and 30.7, platelets 178, neutrophils 72.1. BUN 15, creatinine 0.45. ANTIMICROBIALS: The patient remains on IV Rocephin. PHYSICAL EXAMINATION: GENERAL: This is an obese, well-developed, middle-aged woman who is awake, in no distress. HEENT: Head atraumatic, normocephalic. Sclerae anicteric. Buccal mucosa dry. NECK: Supple. CHEST: Rise symmetrical. Breath sounds diminished to bases. HEART: S1, S2. ABDOMEN: Soft, bowel tones present. EXTREMITIES: No cyanosis. ASSESSMENT: 1. Metastatic breast cancer with recurrent right pleural effusion ?empyema, pleural fluid culture growing oxacillin-sensitive Staphylococcus aureus. 2. Status post VATS. 3. History of craniectomy for brain metastasis. 4. Diabetes. 5. Obesity. PLAN: The patient remains stable. Continue present care, antibiotics. Follow cardiothoracic surgery and pulmonary recommendations. Chemo per oncology. Dictated By: ZULEYMA ALEX FLIGHT SOFTWARE TEST ENGINEER for FELISHA LU/AFIA Conf#: [id number] DID#: [id number]
--- NOTE | 2017-09-13 18:39 | PN ---
Date/Time of Note Date/Time of Note DATE: 09/13/17 TIME: 18:39 Assessment/Plan Lines/Catheters IV Catheter Type (from Nrs): A Line Francois in Place (from Nrs): Yes Assessment/Plan Chief Complaint/Hosp Course IMPRESSION: Right loculated pleural effusion. R status post right VATS pleurodesis decortication Patient feels much better Less shortness of breath Check chest x-ray Will continue chest tube suction Problems: Subjective 24 Hr Interval Summary Constitutional: improved Pain Control: mild Exam/Review of Systems Vital Signs Vitals Vital Signs Date Time Temp Pulse Resp B/P Pulse Ox O2 Delivery O2 Flow Rate FiO2 09/13/17 16:00 84 09/13/17 15:00 19 119/68 96 Nasal Cannula 09/13/17 12:00 2.0 09/13/17 12:00 97.7 Intake and Output 09/12/17 09/12/17 09/13/17 15:00 23:00 07:00 Intake Total 260 ml 1060 ml 590 ml Output Total 1180 ml 995 ml Balance 260 ml -120 ml -405 ml Exam Neck: non-tender, supple Respiratory: clear to auscultation, normal air movement Cardiovascular: nl pulses, regular rate and rhythm Gastrointestinal: nl liver, spleen, non-tender, soft Results Result Diagram: 09/13/17 0415 09/13/17 0415 DEVIKA MENA MD Sep 13, 2017 18:39
[2017-09-13] MEDS: DOCUSATE SODIUM 100 MG CAP PO SCH (21:16)
[2017-09-14] VITALS (13 sets, daily range): BP systolic 107–135; BP diastolic 65–81; PULSE 71–93; RESP 16–25
[2017-09-14] MEDS: ACCU-CHEK XX SCH (01:38)
[2017-09-14] MEDS: INSULIN ASPART [NOVOLOG] 3 ML PEN SC SCH ×6 (01:38→20:30)
[2017-09-14 05:43] LABS: ABNORMAL IP MESSAGE 1; BASOPHILS % 0.1 % (0.0-2.0); HEMATOCRIT 30.3 % (37.0-47.0); HEMOGLOBIN 9.5 g/dl (12.0-16.0); LYMPHOCYTES # 1.1 10^3/ul (0.8-2.9); LYMPHOCYTES % 5.9 % (15.0-51.0); MEAN CORPUSCULAR HEMOGLOBIN 24.2 pg (29.0-33.0); MEAN CORPUSCULAR HGB CONC 31.4 g/dl (32.0-37.0); MEAN CORPUSCULAR VOLUME 77.1 fl (82.0-101.0); MEAN PLATELET VOLUME 8.4 fl (7.4-10.4); MONOCYTE # 0.8 10^3/ul (0.3-0.9); MONOCYTES % 4.4 % (0.0-11.0); NEUTROPHIL # 15.9 10^3/ul (1.6-7.5); PLATELET COUNT 175 10^3/UL (140-415); RED BLOOD COUNT 3.93 10^6/ul (4.20-5.40); RED CELL DISTRIBUTION WIDTH 22.3 % (11.5-14.5); WHITE BLOOD COUNT 18.5 10^3/ul (4.8-10.8)
[2017-09-14 06:01] LABS: INR 1.39; PROTIME 17.1 Sec (12.2-14.2); PT RATIO 1.3
[2017-09-14 06:02] LABS: PARTIAL THROMBOPLASTIN TIME 35.7 Sec (25.0-35.0)
[2017-09-14 06:15] LABS: THROMBIN TIME 14.2 SEC (13.8-19.1)
[2017-09-14 06:19] LABS: POSITIVE DIFF @See below
[2017-09-14 07:06] LABS: ALBUMIN 2.2 g/dl (3.3-4.9); CALCIUM 7.6 mg/dl (8.4-10.2); CREATININE 0.41 mg/dl (0.44-1.00); PHOSPHORUS 3.6 mg/dl (2.5-4.9); POTASSIUM 3.8 mmol/L (3.5-5.1)
--- NOTE | 2017-09-14 07:09 | RADRPT ---
PROCEDURE: XR Chest. CLINICAL INDICATION: Pneumonia TECHNIQUE: A single AP view of the chest was obtained. COMPARISON: Chest x-ray dated 09/06/[address] chest dated 09/07/2017 FINDINGS: A right-sided chest tube is in place. There is a moderate right pleural effusion with right basilar consolidation. Fluid is seen along the right minor fissure. There is obscuration of the right diaphragm. The cardiomediastinal silhouette is mildly enlarged. The osseous structures are unremarkable. IMPRESSION: 1. Moderate right pleural effusion with right basilar consolidation, improved when compared to the prior examination. A right chest tube is in place. 2. Mild cardiomegaly. RPTAT: HH .Shirley Christie MD, MD Date Time Electronically viewed and signed by .Shirley Christie MD, on 09/14/2017 07:09 .G/
[2017-09-14] MEDS: DEXAMETHASONE 4 MG TAB PO SCH ×2 (08:45→20:21)
[2017-09-14] MEDS: TAMOXIFEN 10 MG TAB PO SCH (08:46)
[2017-09-14] MEDS: FAMOTIDINE 20 MG TAB PO SCH ×2 (08:46→20:21)
[2017-09-14] MEDS: NYSTATIN 30 GM POWDER BTL TOP SCH ×2 (08:49→20:22)
--- NOTE | 2017-09-14 09:49 | PN ---
Date/Time of Note Date/Time of Note DATE: 09/14/17 TIME: 09:49 Assessment/Plan VTE Prophylaxis VTE Prophylaxis Intervention: contraindicated Lines/Catheters IV Catheter Type (from [facility] Peripheral IV Urinary Cath still in place: No Assessment/Plan Assessment/Plan 1. Empyema 2/2 staph aureus. - Patient is s/p VATS on 09/12/17 and doing well after procedure. Chest tube in place with lightening serosanguineous drainage - CT chest showed trace loculated pleural effusion with possible empyema in addition to malignant effusion. - CT surgery on board and appreciate consultation - Continue IV antibiotics per ID - Ultrasound-guided thoracentesis performed, cultures showing staph aureus 2. Dysfunctional Pleurx catheter - Pulmonology on board and consultation appreciated - CXR shows right moderate pleural effusion with right basilar consolidation, improved when compared to the prior examination. A right chest tube is in place. - Respiratory status stable at this time 3. Cellulitis, area around catheter - ID on board and recommendations appreciated. Continue on antibiotics 4. Metastatic breast cancer, lung, liver, brain, s/p craniectomy - currently receiving radiation therapy and tamoxifen and Decadron - Heme/onc on board and consultation appreciated - Radiation as scheduled 5. Diabetes mellitus - Currently stable 6. Obesity - Counseled about diet and improving exercise routine when able 7. Disposition - Stable for transfer to Telemetry >30 minutes of critical care time was spent with patient at bedside. Subjective 24 Hr Interval Summary Free Text/Dictation Patient feeling better and more awake and energetic this am. Doing well and tolerating diet. Respiratory status more comfortable as well. No acute overnight events. Exam/Review of Systems Vital Signs Vitals Vital Signs Date Time Temp Pulse Resp B/P Pulse Ox O2 Delivery O2 Flow Rate FiO2 09/14/17 08:00 86 09/14/17 07:15 Nasal Cannula 2.0 09/14/17 07:00 17 131/77 98 09/14/17 00:00 97.6 Intake and Output 09/13/17 09/13/17 09/14/17 14:59 22:59 06:59 Intake Total 350 ml 780 ml 1210 ml Output Total 720 ml 950 ml 250 ml Balance -370 ml -170 ml 960 ml Exam General: Patient more comfortable today in no acute distress Head: R side craniectomy site healing well. Eyes: EOMI, pupils reactive to light Neck: Supple, nontender, midline Respiratory: diminished air entry with chest tube in place draining sero sanguinous fluid Cardiovascular: regular rate, no obvious murmurs Gastrointestinal: non-tender to palpation, bowel sounds heard. Neurological: Moves all extremities spontaneously Results Result Diagram: 09/14/17 0458 09/14/17 0458 Results 24 hrs Laboratory Tests Test 09/13/17 12:27 09/13/17 16:51 09/13/17 21:17 09/14/17 00:59 Bedside Glucose 111 227 H 188 144 Test 09/14/17 04:58 09/14/17 05:55 09/14/17 08:48 White Blood Count 18.5 H Red Blood Count 3.93 L Hemoglobin 9.5 L Hematocrit 30.3 L Mean Corpuscular Volume 77.1 L Mean Corpuscular Hemoglobin 24.2 L Mean Corpuscular Hemoglobin Concent 31.4 L Red Cell Distribution Width 22.3 H Platelet Count 168 Mean Platelet Volume 8.4 Neutrophils % 86.0 H Lymphocytes % 5.9 L Monocytes % 4.4 Eosinophils % 0.0 Basophils % 0.1 Nucleated Red Blood Cells % 0.0 Neutrophils # 15.9 H Lymphocytes # 1.1 Monocytes # 0.8 Eosinophils # 0.0 Basophils # 0.0 Nucleated Red Blood Cells # 0.0 Prothrombin Time 17.1 #H Prothrombin Time Ratio 1.3 INR International Normalized Ratio 1.39 Activated Partial Thromboplast Time 35.7 H Thrombin Time 14.2 Sodium Level 136 Potassium Level 3.8 Chloride Level 104 Carbon Dioxide Level 23 Anion Gap 13 Blood Urea Nitrogen 11 Creatinine 0.41 L Glucose Level 153 Calcium Level 7.6 L Phosphorus Level 3.6 Magnesium Level 2.0 Albumin 2.2 L Bedside Glucose 142 120 Medications Medications Current Medications Dexamethasone (Decadron) 4 mg BID PO Last administered on 09/14/17 08:45; Admin Dose 4 MG; Start 09/05/17 at 21:00 Docusate Sodium (Colace) 200 mg QHS PO Last administered on 09/13/17 21:16; Admin Dose 200 MG; Start 09/05/17 at 21:00 Ondansetron HCl (Zofran Inj) 4 mg Q6H PRN IV NAUSEA AND/OR VOMITING; Start at 21:00 Acetaminophen (Tylenol Tab) 650 mg Q6H PRN PO PAIN LEVEL 1-3 OR FEVER Last administered on 09/13/17 07:13; Admin Dose 650 MG; Start 09/05/17 at 21:00 Oxycodone/ Acetaminophen (Percocet (5/ 325)) 1 tab Q6H PRN PO MODERATE PAIN LEVEL 4-6; Start 09/05/17 at 21:00 Morphine Sulfate (morphine) 2 mg Q4H PRN IV SEVERE PAIN LEVEL 7-10 Last administered on 09/13/17 02:47; Admin Dose 2 MG; Start 09/05/17 at 21:00 Docusate Sodium (Colace) 100 mg Q12H PRN PO CONSTIPATION; Start 09/05/17 at 21 :00 Magnesium Hydroxide (Milk Of Mag) 30 ml DAILY PRN PO CONSTIPATION; Start 09/05 at 21:00 Famotidine (Pepcid) 20 mg Q12 PO Last administered on 09/14/17 08:46; Admin Dose 20 MG; Start 09/05/17 at 21:00 Albuterol (Proventil 0.083% (Neb)) 2.5 mg Q2 PRN HHN SHORTNESS OF BREATH; Start 09/05/17 at 21:00 Miscellaneous Information 1 ea NOTE XX ; Start 09/05/17 at 21:30 Glucose (Glutose) 15 gm Q15M PRN PO DECREASED GLUCOSE; Start 09/05/17 at 21:30 Glucose (Glutose) 22.5 gm Q15M PRN PO DECREASED GLUCOSE; Start 09/05/17 at 21: 30 Dextrose (D50w Syringe) 25 ml Q15M PRN IV DECREASED GLUCOSE; Start 09/05/17 at 21:30 Dextrose (D50w Syringe) 50 ml Q15M PRN IV DECREASED GLUCOSE; Start 09/05/17 at 21:30 Glucagon (Glucagen) 1 mg Q15M PRN IM DECREASED GLUCOSE; Start 09/05/17 at 21: 30 Glucose (Glutose) 15 gm Q15M PRN BUCCAL DECREASED GLUCOSE; Start 09/05/17 at 21:30 Nystatin (Nystatin Powder) 1 applic BID TOP Last administered on 09/14/17 08: 49; Admin Dose 1 APPLIC; Start 09/06/17 at 09:00 Tamoxifen Citrate (Nolvadex) 20 mg DAILY PO Last administered on 09/14/17 08: 46; Admin Dose 20 MG; Start 09/06/17 at 13:00 Diagnostic Test (Pha) 1 ea 1 ea 02 XX Last administered on 09/14/17 01:38; Admin Dose 1 EA; Start 09/07/17 at 02:00 Ceftriaxone Sodium (Rocephin) 50 ml @ 100 mls/hr Q24H IVPB Last administered on 09/13/17 13:57; Admin Dose 100 MLS/HR; Start 09/08/17 at 14:00 Insulin Aspart NOVOLOG *MILD* ALGORI... Q4 SC Last administered on 09/14/17 06 :00; Admin Dose 1 UNIT; Start 09/12/17 at 01:00 Norepinephrine (Levophed) 250 ml @ 1.875 mls/ hr TITRATE IV ; Start 09/12/17 at 21:00 ZEUS TABOR MD Sep 14, 2017 09:49
--- NOTE | 2017-09-14 11:09 | CONS ---
Date/Time of Note Date/Time of Note DATE: 09/14/17 TIME: 11:08 Consult Date/Type/Reason Admit Date/Time Sep 05, 2017 at 18:29 Initial Consult Date 09/06/17 Type of Consultation: Pulmonary Ordering Provider: MINDY NEGRON Subjective Patient feeling better today still has moderate drainage from chest tube. Less shortness of breath. Hemodynamically stable. Objective Vital Signs Date Time Temp Pulse Resp B/P Pulse Ox O2 Delivery O2 Flow Rate FiO2 09/14/17 10:00 93 22 113/68 94 Nasal Cannula 2.0 09/14/17 08:00 98.0 Intake and Output 09/13/17 09/13/17 09/14/17 15:00 23:00 07:00 Intake Total 450 ml 750 ml 1140 ml Output Total 870 ml 1050 ml Balance -420 ml -300 ml 1140 ml Exam GENERAL: Well-developed lady comfortable at rest VITAL SIGNS: per chart NECK: Supple. No JVD or lymphadenopathy. CARDIAC EXAM: S1, S2. No added sounds or murmurs. CHEST: Diminished air entry right base. Chest tube in place. ABDOMEN: Soft, nontender. No guarding or rebound. EXTREMITIES: No cyanosis, clubbing or edema. NEUROLOGIC: Generalized weakness. No focal deficits. Results/Medications Result Diagram: 09/14/17 0458 09/14/17 0458 Results 24 hrs Laboratory Tests Test 09/13/17 12:27 09/13/17 16:51 09/13/17 21:17 09/14/17 00:59 Bedside Glucose 111 227 H 188 144 Test 09/14/17 04:58 09/14/17 05:55 09/14/17 08:48 White Blood Count 18.5 H Red Blood Count 3.93 L Hemoglobin 9.5 L Hematocrit 30.3 L Mean Corpuscular Volume 77.1 L Mean Corpuscular Hemoglobin 24.2 L Mean Corpuscular Hemoglobin Concent 31.4 L Red Cell Distribution Width 22.3 H Platelet Count 168 Mean Platelet Volume 8.4 Neutrophils % 86.0 H Lymphocytes % 5.9 L Monocytes % 4.4 Eosinophils % 0.0 Basophils % 0.1 Nucleated Red Blood Cells % 0.0 Neutrophils # 15.9 H Lymphocytes # 1.1 Monocytes # 0.8 Eosinophils # 0.0 Basophils # 0.0 Nucleated Red Blood Cells # 0.0 Prothrombin Time 17.1 #H Prothrombin Time Ratio 1.3 INR International Normalized Ratio 1.39 Activated Partial Thromboplast Time 35.7 H Thrombin Time 14.2 Sodium Level 136 Potassium Level 3.8 Chloride Level 104 Carbon Dioxide Level 23 Anion Gap 13 Blood Urea Nitrogen 11 Creatinine 0.41 L Glucose Level 153 Calcium Level 7.6 L Phosphorus Level 3.6 Magnesium Level 2.0 Albumin 2.2 L Bedside Glucose 142 120 Medications Current Medications Dexamethasone (Decadron) 4 mg BID PO Last administered on 09/14/17 08:45; Admin Dose 4 MG; Start 09/05/17 at 21:00 Docusate Sodium (Colace) 200 mg QHS PO Last administered on 09/13/17 21:16; Admin Dose 200 MG; Start 09/05/17 at 21:00 Ondansetron HCl (Zofran Inj) 4 mg Q6H PRN IV NAUSEA AND/OR VOMITING; Start at 21:00 Acetaminophen (Tylenol Tab) 650 mg Q6H PRN PO PAIN LEVEL 1-3 OR FEVER Last administered on 09/13/17 07:13; Admin Dose 650 MG; Start 09/05/17 at 21:00 Oxycodone/ Acetaminophen (Percocet (5/ 325)) 1 tab Q6H PRN PO MODERATE PAIN LEVEL 4-6; Start 09/05/17 at 21:00 Morphine Sulfate (morphine) 2 mg Q4H PRN IV SEVERE PAIN LEVEL 7-10 Last administered on 09/13/17 02:47; Admin Dose 2 MG; Start 09/05/17 at 21:00 Docusate Sodium (Colace) 100 mg Q12H PRN PO CONSTIPATION; Start 09/05/17 at 21 :00 Magnesium Hydroxide (Milk Of Mag) 30 ml DAILY PRN PO CONSTIPATION; Start 09/05 at 21:00 Famotidine (Pepcid) 20 mg Q12 PO Last administered on 09/14/17 08:46; Admin Dose 20 MG; Start 09/05/17 at 21:00 Albuterol (Proventil 0.083% (Neb)) 2.5 mg Q2 PRN HHN SHORTNESS OF BREATH; Start 09/05/17 at 21:00 Miscellaneous Information 1 ea NOTE XX ; Start 09/05/17 at 21:30 Glucose (Glutose) 15 gm Q15M PRN PO DECREASED GLUCOSE; Start 09/05/17 at 21:30 Glucose (Glutose) 22.5 gm Q15M PRN PO DECREASED GLUCOSE; Start 09/05/17 at 21: 30 Dextrose (D50w Syringe) 25 ml Q15M PRN IV DECREASED GLUCOSE; Start 09/05/17 at 21:30 Dextrose (D50w Syringe) 50 ml Q15M PRN IV DECREASED GLUCOSE; Start 09/05/17 at 21:30 Glucagon (Glucagen) 1 mg Q15M PRN IM DECREASED GLUCOSE; Start 09/05/17 at 21: 30 Glucose (Glutose) 15 gm Q15M PRN BUCCAL DECREASED GLUCOSE; Start 09/05/17 at 21:30 Nystatin (Nystatin Powder) 1 applic BID TOP Last administered on 09/14/17 08: 49; Admin Dose 1 APPLIC; Start 09/06/17 at 09:00 Tamoxifen Citrate (Nolvadex) 20 mg DAILY PO Last administered on 09/14/17 08: 46; Admin Dose 20 MG; Start 09/06/17 at 13:00 Diagnostic Test (Pha) 1 ea 1 ea 02 XX Last administered on 09/14/17 01:38; Admin Dose 1 EA; Start 09/07/17 at 02:00 Ceftriaxone Sodium (Rocephin) 50 ml @ 100 mls/hr Q24H IVPB Last administered on 09/13/17 13:57; Admin Dose 100 MLS/HR; Start 09/08/17 at 14:00 Insulin Aspart NOVOLOG *MILD* ALGORI... Q4 SC Last administered on 09/14/17 06 :00; Admin Dose 1 UNIT; Start 09/12/17 at 01:00 Norepinephrine (Levophed) 250 ml @ 1.875 mls/ hr TITRATE IV ; Start 09/12/17 at 21:00 Assessment/Plan Chief Complaint/Hosp Course Assessment 1. Metastatic breast cancer with recurrent right pleural effusion. Cultures growing gram-positive cocci consistent with staph aureus. 2. Loculated pleural effusion possible empyema status post decortication and pleurodesis. 3. DATA LIBRARIAN metastasis currently receiving steroids and radiation therapy Plan 1. Continue chest tube drainage. Await pleural fluid cultures. Previous cultures grew staph aureus. We will continue current antibiotics. 2. Continue oncology recommendations continues radiation therapy for DATA LIBRARIAN metastasis 3. Continue antibiotic coverage for staph infection. Transfer to telemetry encourage out of bed. Problems: MARTINEZ MASCORRO MD, [facility] Sep 14, 2017 11:09
--- NOTE | 2017-09-14 11:30 | CONS ---
Date/Time of Note Date/Time of Note DATE: 09/14/17 TIME: 11:26 Assessment/Plan Assessment/Plan Chief Complaint/Hosp Course #Her2+/ER+/TX+ metastatic breast ca -pt is non compliant and when she receives therapy, she is quite responsive to therapy -therefore at this time, although she has terminal disease, there are still many more treatment options which she could benefit from -given her Brain mets, I would consider a combination of Xeloda and Lapatinib which can penetrate the blood brain barrier -once she stabilizes can restart Tamoxifen as well #Pleural Effusion with superimposed infection -pt is s/p decortication and pleurodesis -chest tube with considerable serosanguineous drainage -continue antibiotics given + Staph superinfection infection -appreciate pulmonary recs #Brain Mets -pt is s/p resection -pt needs to continue with WBRT with Dr. Ybarra Problems: Consultation Date/Type/Reason Admit Date/Time Sep 05, 2017 at 18:29 Initial Consult Date 09/07/17 Type of Consultation: Oncology Reason for Consultation metastatic breast cancer Referring Provider: MINDY NEGRON 24 HR Interval Summary Free Text/Dictation pt is status post decortication and pleurodesis. still with considerable drainage from chest tube. pt states she is breathing better Exam/Review of Systems Vital Signs Vitals Vital Signs Date Time Temp Pulse Resp B/P Pulse Ox O2 Delivery O2 Flow Rate FiO2 09/14/17 10:00 93 22 113/68 94 Nasal Cannula 2.0 09/14/17 08:00 98.0 Intake and Output 09/13/17 09/13/17 09/14/17 15:00 23:00 07:00 Intake Total 450 ml 750 ml 1140 ml Output Total 870 ml 1050 ml Balance -420 ml -300 ml 1140 ml Exam Constitutional: alert, frail, oriented Head: atraumatic, normocephalic Eyes: nl conjunctiva ENMT: nl external ears & nose Neck: non-tender, supple Respiratory: other (chest tube in place) Cardiovascular: nl pulses, regular rate and rhythm Gastrointestinal: soft Results Result Diagram: 09/14/17 0458 09/14/17 0458 Results 24 hrs Laboratory Tests Test 09/13/17 12:27 09/13/17 16:51 09/13/17 21:17 09/14/17 00:59 Bedside Glucose 111 227 H 188 144 Test 09/14/17 04:58 09/14/17 05:55 09/14/17 08:48 White Blood Count 18.5 H Red Blood Count 3.93 L Hemoglobin 9.5 L Hematocrit 30.3 L Mean Corpuscular Volume 77.1 L Mean Corpuscular Hemoglobin 24.2 L Mean Corpuscular Hemoglobin Concent 31.4 L Red Cell Distribution Width 22.3 H Platelet Count 168 Mean Platelet Volume 8.4 Neutrophils % 86.0 H Lymphocytes % 5.9 L Monocytes % 4.4 Eosinophils % 0.0 Basophils % 0.1 Nucleated Red Blood Cells % 0.0 Neutrophils # 15.9 H Lymphocytes # 1.1 Monocytes # 0.8 Eosinophils # 0.0 Basophils # 0.0 Nucleated Red Blood Cells # 0.0 Prothrombin Time 17.1 #H Prothrombin Time Ratio 1.3 INR International Normalized Ratio 1.39 Activated Partial Thromboplast Time 35.7 H Thrombin Time 14.2 Sodium Level 136 Potassium Level 3.8 Chloride Level 104 Carbon Dioxide Level 23 Anion Gap 13 Blood Urea Nitrogen 11 Creatinine 0.41 L Glucose Level 153 Calcium Level 7.6 L Phosphorus Level 3.6 Magnesium Level 2.0 Albumin 2.2 L Bedside Glucose 142 120 Medications Medications Current Medications Dexamethasone (Decadron) 4 mg BID PO Last administered on 09/14/17 08:45; Admin Dose 4 MG; Start 09/05/17 at 21:00 Docusate Sodium (Colace) 200 mg QHS PO Last administered on 09/13/17 21:16; Admin Dose 200 MG; Start 09/05/17 at 21:00 Ondansetron HCl (Zofran Inj) 4 mg Q6H PRN IV NAUSEA AND/OR VOMITING; Start at 21:00 Acetaminophen (Tylenol Tab) 650 mg Q6H PRN PO PAIN LEVEL 1-3 OR FEVER Last administered on 09/13/17 07:13; Admin Dose 650 MG; Start 09/05/17 at 21:00 Oxycodone/ Acetaminophen (Percocet (5/ 325)) 1 tab Q6H PRN PO MODERATE PAIN LEVEL 4-6; Start 09/05/17 at 21:00 Morphine Sulfate (morphine) 2 mg Q4H PRN IV SEVERE PAIN LEVEL 7-10 Last administered on 09/13/17 02:47; Admin Dose 2 MG; Start 09/05/17 at 21:00 Docusate Sodium (Colace) 100 mg Q12H PRN PO CONSTIPATION; Start 09/05/17 at 21 :00 Magnesium Hydroxide (Milk Of Mag) 30 ml DAILY PRN PO CONSTIPATION; Start 09/05 at 21:00 Famotidine (Pepcid) 20 mg Q12 PO Last administered on 09/14/17 08:46; Admin Dose 20 MG; Start 09/05/17 at 21:00 Albuterol (Proventil 0.083% (Neb)) 2.5 mg Q2 PRN HHN SHORTNESS OF BREATH; Start 09/05/17 at 21:00 Miscellaneous Information 1 ea NOTE XX ; Start 09/05/17 at 21:30 Glucose (Glutose) 15 gm Q15M PRN PO DECREASED GLUCOSE; Start 09/05/17 at 21:30 Glucose (Glutose) 22.5 gm Q15M PRN PO DECREASED GLUCOSE; Start 09/05/17 at 21: 30 Dextrose (D50w Syringe) 25 ml Q15M PRN IV DECREASED GLUCOSE; Start 09/05/17 at 21:30 Dextrose (D50w Syringe) 50 ml Q15M PRN IV DECREASED GLUCOSE; Start 09/05/17 at 21:30 Glucagon (Glucagen) 1 mg Q15M PRN IM DECREASED GLUCOSE; Start 09/05/17 at 21: 30 Glucose (Glutose) 15 gm Q15M PRN BUCCAL DECREASED GLUCOSE; Start 09/05/17 at 21:30 Nystatin (Nystatin Powder) 1 applic BID TOP Last administered on 09/14/17 08: 49; Admin Dose 1 APPLIC; Start 09/06/17 at 09:00 Tamoxifen Citrate (Nolvadex) 20 mg DAILY PO Last administered on 09/14/17 08: 46; Admin Dose 20 MG; Start 09/06/17 at 13:00 Diagnostic Test (Pha) 1 ea 1 ea 02 XX Last administered on 09/14/17 01:38; Admin Dose 1 EA; Start 09/07/17 at 02:00 Ceftriaxone Sodium (Rocephin) 50 ml @ 100 mls/hr Q24H IVPB Last administered on 09/13/17 13:57; Admin Dose 100 MLS/HR; Start 09/08/17 at 14:00 Insulin Aspart NOVOLOG *MILD* ALGORI... Q4 SC Last administered on 09/14/17 06 :00; Admin Dose 1 UNIT; Start 09/12/17 at 01:00 Norepinephrine (Levophed) 250 ml @ 1.875 mls/ hr TITRATE IV ; Start 09/12/17 at 21:00 ANTWON DYE M.D. Sep 14, 2017 11:30
--- NOTE | 2017-09-14 14:07 | CONS ---
Date/Time of Note Date/Time of Note DATE: 09/14/17 TIME: 14:05 Consult Date/Type/Reason Admit Date/Time Sep 05, 2017 at 18:29 Initial Consult Date 09/07/17 Type of Consultation: ID Ordering Provider: MINDY NEGRON Objective Vital Signs Date Time Temp Pulse Resp B/P Pulse Ox O2 Delivery O2 Flow Rate FiO2 09/14/17 13:17 98.3 73 16 124/65 97 09/14/17 12:00 Nasal Cannula 09/14/17 10:00 2.0 09/14/17 08:05 21 Intake and Output 09/13/17 09/13/17 09/14/17 15:00 23:00 07:00 Intake Total 450 ml 750 ml 1140 ml Output Total 870 ml 1050 ml Balance -420 ml -300 ml 1140 ml Results/Medications Result Diagram: 09/14/17 0458 09/14/17 0458 Results 24 hrs Laboratory Tests Test 09/13/17 16:51 09/13/17 21:17 09/14/17 00:59 09/14/17 04:58 Bedside Glucose 227 H 188 144 White Blood Count 18.5 H Red Blood Count 3.93 L Hemoglobin 9.5 L Hematocrit 30.3 L Mean Corpuscular Volume 77.1 L Mean Corpuscular Hemoglobin 24.2 L Mean Corpuscular Hemoglobin Concent 31.4 L Red Cell Distribution Width 22.3 H Platelet Count 168 Mean Platelet Volume 8.4 Neutrophils % 86.0 H Lymphocytes % 5.9 L Monocytes % 4.4 Eosinophils % 0.0 Basophils % 0.1 Nucleated Red Blood Cells % 0.0 Neutrophils # 15.9 H Lymphocytes # 1.1 Monocytes # 0.8 Eosinophils # 0.0 Basophils # 0.0 Nucleated Red Blood Cells # 0.0 Prothrombin Time 17.1 #H Prothrombin Time Ratio 1.3 INR International Normalized Ratio 1.39 Activated Partial Thromboplast Time 35.7 H Thrombin Time 14.2 Sodium Level 136 Potassium Level 3.8 Chloride Level 104 Carbon Dioxide Level 23 Anion Gap 13 Blood Urea Nitrogen 11 Creatinine 0.41 L Glucose Level 153 Calcium Level 7.6 L Phosphorus Level 3.6 Magnesium Level 2.0 Albumin 2.2 L Test 09/14/17 05:55 09/14/17 08:48 09/14/17 13:18 Bedside Glucose 142 120 152 Medications Current Medications Dexamethasone (Decadron) 4 mg BID PO Last administered on 09/14/17 08:45; Admin Dose 4 MG; Start 09/05/17 at 21:00 Docusate Sodium (Colace) 200 mg QHS PO Last administered on 09/13/17 21:16; Admin Dose 200 MG; Start 09/05/17 at 21:00 Ondansetron HCl (Zofran Inj) 4 mg Q6H PRN IV NAUSEA AND/OR VOMITING; Start at 21:00 Acetaminophen (Tylenol Tab) 650 mg Q6H PRN PO PAIN LEVEL 1-3 OR FEVER Last administered on 09/13/17 07:13; Admin Dose 650 MG; Start 09/05/17 at 21:00 Oxycodone/ Acetaminophen (Percocet (5/ 325)) 1 tab Q6H PRN PO MODERATE PAIN LEVEL 4-6; Start 09/05/17 at 21:00 Morphine Sulfate (morphine) 2 mg Q4H PRN IV SEVERE PAIN LEVEL 7-10 Last administered on 09/13/17 02:47; Admin Dose 2 MG; Start 09/05/17 at 21:00 Docusate Sodium (Colace) 100 mg Q12H PRN PO CONSTIPATION; Start 09/05/17 at 21 :00 Magnesium Hydroxide (Milk Of Mag) 30 ml DAILY PRN PO CONSTIPATION; Start 09/05 at 21:00 Famotidine (Pepcid) 20 mg Q12 PO Last administered on 09/14/17 08:46; Admin Dose 20 MG; Start 09/05/17 at 21:00 Albuterol (Proventil 0.083% (Neb)) 2.5 mg Q2 PRN HHN SHORTNESS OF BREATH; Start 09/05/17 at 21:00 Miscellaneous Information 1 ea NOTE XX ; Start 09/05/17 at 21:30 Glucose (Glutose) 15 gm Q15M PRN PO DECREASED GLUCOSE; Start 09/05/17 at 21:30 Glucose (Glutose) 22.5 gm Q15M PRN PO DECREASED GLUCOSE; Start 09/05/17 at 21: 30 Dextrose (D50w Syringe) 25 ml Q15M PRN IV DECREASED GLUCOSE; Start 09/05/17 at 21:30 Dextrose (D50w Syringe) 50 ml Q15M PRN IV DECREASED GLUCOSE; Start 09/05/17 at 21:30 Glucagon (Glucagen) 1 mg Q15M PRN IM DECREASED GLUCOSE; Start 09/05/17 at 21: 30 Glucose (Glutose) 15 gm Q15M PRN BUCCAL DECREASED GLUCOSE; Start 09/05/17 at 21:30 Nystatin (Nystatin Powder) 1 applic BID TOP Last administered on 09/14/17 08: 49; Admin Dose 1 APPLIC; Start 09/06/17 at 09:00 Tamoxifen Citrate (Nolvadex) 20 mg DAILY PO Last administered on 09/14/17 08: 46; Admin Dose 20 MG; Start 09/06/17 at 13:00 Diagnostic Test (Pha) 1 ea 1 ea 02 XX Last administered on 09/14/17 01:38; Admin Dose 1 EA; Start 09/07/17 at 02:00 Ceftriaxone Sodium (Rocephin) 50 ml @ 100 mls/hr Q24H IVPB Last administered on 09/13/17 13:57; Admin Dose 100 MLS/HR; Start 09/08/17 at 14:00 Insulin Aspart NOVOLOG *MILD* ALGORI... Q4 SC Last administered on 09/14/17 13 :45; Admin Dose 1 UNIT; Start 09/12/17 at 01:00 Norepinephrine (Levophed) 250 ml @ 1.875 mls/ hr TITRATE IV ; Start 09/12/17 at 21:00 Assessment/Plan Chief Complaint/Hosp Course SUBJECTIVE: No acute changes. The patient is awake, feels good. Denies pain, looks comfortable. INDWELLINGS: Right IJ triple-lumen catheter, right-sided chest tube. ANTIMICROBIALS: The patient remains on IV Rocephin. PHYSICAL EXAMINATION: GENERAL: This is an obese, well-developed, middle-aged woman who is awake, in no distress. HEENT: Head atraumatic, normocephalic. Sclerae anicteric. Buccal mucosa dry. NECK: Supple. CHEST: Rise symmetrical. Breath sounds diminished to bases. HEART: S1, S2. ABDOMEN: Soft, bowel tones present. EXTREMITIES: No cyanosis. ASSESSMENT: 1. Metastatic breast cancer with recurrent right pleural effusion ?empyema, pleural fluid culture growing oxacillin-sensitive Staphylococcus aureus. 2. Status post VATS/pleurodesis with decortication. 3. History of craniectomy for brain metastasis. 4. Diabetes. 5. Obesity. PLAN: Remains stable. Continue present care, antibiotics. Follow oncology, cardiothoracic surgery and pulmonary recommendations. DW staff Problems: ZULEYMA ALEX NP Sep 14, 2017 14:07
[2017-09-14] MEDS: CEFTRIAXONE 1 GM/50 ML (PMX) 50 ML IVPB SCH (15:17)
--- NOTE | 2017-09-14 20:07 | PN ---
Date/Time of Note Date/Time of Note DATE: 09/14/17 TIME: 20:07 Assessment/Plan Lines/Catheters IV Catheter Type (from Nrs): Peripheral IV Francois in Place (from Nrsg): No Assessment/Plan Chief Complaint/Hosp Course IMPRESSION: Right loculated pleural effusion. R status post right VATS pleurodesis decortication Patient feels much better CT 700 cc Less shortness of breath Check chest x-ray Will continue chest tube suction Problems: Subjective 24 Hr Interval Summary Constitutional: improved Pain Control: mild Exam/Review of Systems Vital Signs Vitals Vital Signs Date Time Temp Pulse Resp B/P Pulse Ox O2 Delivery O2 Flow Rate FiO2 09/14/17 16:37 87 09/14/17 15:17 98.0 16 113/74 97 09/14/17 12:00 Nasal Cannula 09/14/17 10:00 2.0 09/14/17 08:05 21 Intake and Output 09/13/17 09/13/17 09/14/17 15:00 23:00 07:00 Intake Total 450 ml 750 ml 1140 ml Output Total 870 ml 1050 ml Balance -420 ml -300 ml 1140 ml Exam ENMT: mucosa pink and moist, nl external ears & nose, nl lips & teeth, nl nasal mucosa & septum Neck: non-tender, supple Respiratory: clear to auscultation, normal air movement Cardiovascular: nl pulses, regular rate and rhythm Results Result Diagram: 09/14/17 0458 09/14/17 0458 DEVIKA MNEA MD Sep 14, 2017 20:07
[2017-09-14] MEDS: DOCUSATE SODIUM 100 MG CAP PO SCH (20:21)
[2017-09-15] VITALS (7 sets, daily range): BP systolic 109–132; BP diastolic 59–71; PULSE 69–71; RESP 16–18
[2017-09-15] MEDS: INSULIN ASPART [NOVOLOG] 3 ML PEN SC SCH ×6 (01:05→22:12)
[2017-09-15] MEDS: ACCU-CHEK XX SCH (01:41)
[2017-09-15 06:30] LABS: ABNORMAL IP MESSAGE 1; BASOPHILS % 0.2 % (0.0-2.0); HEMATOCRIT 30.4 % (37.0-47.0); HEMOGLOBIN 9.8 g/dl (12.0-16.0); LYMPHOCYTES # 1.4 10^3/ul (0.8-2.9); LYMPHOCYTES % 7.6 % (15.0-51.0); MEAN CORPUSCULAR HEMOGLOBIN 24.8 pg (29.0-33.0); MEAN CORPUSCULAR HGB CONC 32.2 g/dl (32.0-37.0); MEAN PLATELET VOLUME 8.6 fl (7.4-10.4); MONOCYTE # 0.9 10^3/ul (0.3-0.9); NEUTROPHIL # 14.9 10^3/ul (1.6-7.5); PLATELET COUNT 202 10^3/UL (140-415); RED BLOOD COUNT 3.95 10^6/ul (4.20-5.40); RED CELL DISTRIBUTION WIDTH 22.5 % (11.5-14.5); WHITE BLOOD COUNT 17.7 10^3/ul (4.8-10.8)
[2017-09-15 06:42] LABS: POSITIVE DIFF @See below
[2017-09-15 07:28] LABS: CREATININE 0.42 mg/dl (0.44-1.00); POTASSIUM 4.5 mmol/L (3.5-5.1)
[2017-09-15] MEDS: FAMOTIDINE 20 MG TAB PO SCH ×2 (09:10→20:17)
[2017-09-15] MEDS: NYSTATIN 30 GM POWDER BTL TOP SCH ×2 (09:10→22:12)
[2017-09-15] MEDS: DEXAMETHASONE 4 MG TAB PO SCH ×2 (09:10→20:17)
[2017-09-15] MEDS: TAMOXIFEN 10 MG TAB PO SCH (10:43)
--- NOTE | 2017-09-15 11:09 | PN ---
Date/Time of Note Date/Time of Note DATE: 09/15/17 TIME: 11:09 Assessment/Plan VTE Prophylaxis VTE Prophylaxis Intervention: contraindicated, SCD's Lines/Catheters IV Catheter Type (from Rust): Saline Lock Urinary Cath still in place: No Assessment/Plan Assessment/Plan 1. Empyema 2/2 staph aureus s/p VATS 09/12/17 - Patient doing well and chest tube still in place and continues with serosanguineous drainage - CT chest showed trace loculated pleural effusion with possible empyema in addition to malignant effusion. - CT surgery on board and appreciate consultation - Continue IV antibiotics per ID - Ultrasound-guided thoracentesis performed, cultures showing staph aureus 2. Dysfunctional Pleurx catheter - Pulmonology on board and consultation appreciated - Respiratory status stable at this time 3. Cellulitis, area around catheter - ID on board and recommendations appreciated. Continue on antibiotics 4. Metastatic breast cancer, lung, liver, brain, s/p craniectomy - currently receiving radiation therapy and tamoxifen and Decadron - Heme/onc on board and consultation appreciated - Radiation as scheduled 5. Diabetes mellitus - Currently stable 6. Obesity - Counseled about diet and improving exercise routine when able 7. Disposition - Continue monitoring on med/surg while chest tube in place Subjective 24 Hr Interval Summary Free Text/Dictation Patient tired this am after radiation this am but states still feeling better respiratory hensley. No acute overnight events. She is concerned it feels like swelling on right side of skull. Denies any headache, nausea, vomiting, visual changes, or discharge from site. Exam/Review of Systems Vital Signs Vitals Vital Signs Date Time Temp Pulse Resp B/P Pulse Ox O2 Delivery O2 Flow Rate FiO2 09/15/17 08:19 98.0 64 18 118/71 96 09/15/17 02:53 2.0 27 09/14/17 20:00 Nasal Cannula Intake and Output 09/14/17 09/14/17 09/15/17 15:00 23:00 07:00 Intake Total 550 ml 400 ml Output Total 150 ml 2080 ml Balance 400 ml -1680 ml Exam General: Patient sleepy this am after radiation. no acute distress and experiencing some swelling on right side of skull but no discharge or drainage appreciated. Head: R side craniectomy site healing well. Eyes: EOMI, pupils reactive to light Neck: Supple, nontender, midline Respiratory: diminished air entry with chest tube in place draining sero sanguinous fluid Cardiovascular: regular rate, no obvious murmurs Gastrointestinal: non-tender to palpation, bowel sounds heard. Neurological: Moves all extremities spontaneously Results Result Diagram: 09/15/17 0616 09/15/17 0616 Results 24 hrs Laboratory Tests Test 09/14/17 13:18 09/14/17 17:15 09/14/17 20:26 09/15/17 00:59 Bedside Glucose 152 175 241 H 194 Test 09/15/17 04:59 09/15/17 06:16 09/15/17 09:00 Bedside Glucose 160 132 White Blood Count 17.7 H Red Blood Count 3.95 L Hemoglobin 9.8 L Hematocrit 30.4 L Mean Corpuscular Volume 77.0 L Mean Corpuscular Hemoglobin 24.8 L Mean Corpuscular Hemoglobin Concent 32.2 Red Cell Distribution Width 22.5 H Platelet Count 202 Mean Platelet Volume 8.6 Neutrophils % 84.0 H Lymphocytes % 7.6 L Monocytes % 5.0 Eosinophils % 0.0 Basophils % 0.2 Nucleated Red Blood Cells % 0.0 Neutrophils # 14.9 H Lymphocytes # 1.4 Monocytes # 0.9 Eosinophils # 0.0 Basophils # 0.0 Nucleated Red Blood Cells # 0.0 Sodium Level 136 Potassium Level 4.5 Chloride Level 104 Carbon Dioxide Level 24 Anion Gap 13 Blood Urea Nitrogen 15 Creatinine 0.42 L Glucose Level 150 Calcium Level 8.0 L Medications Medications Current Medications Dexamethasone (Decadron) 4 mg BID PO Last administered on 09/15/17 09:10; Admin Dose 4 MG; Start 09/05/17 at 21:00 Docusate Sodium (Colace) 200 mg QHS PO Last administered on 09/14/17 20:21; Admin Dose 200 MG; Start 09/05/17 at 21:00 Ondansetron HCl (Zofran Inj) 4 mg Q6H PRN IV NAUSEA AND/OR VOMITING; Start at 21:00 Acetaminophen (Tylenol Tab) 650 mg Q6H PRN PO PAIN LEVEL 1-3 OR FEVER Last administered on 09/13/17 07:13; Admin Dose 650 MG; Start 09/05/17 at 21:00 Oxycodone/ Acetaminophen (Percocet (5/ 325)) 1 tab Q6H PRN PO MODERATE PAIN LEVEL 4-6; Start 09/05/17 at 21:00 Morphine Sulfate (morphine) 2 mg Q4H PRN IV SEVERE PAIN LEVEL 7-10 Last administered on 09/13/17 02:47; Admin Dose 2 MG; Start 09/05/17 at 21:00 Docusate Sodium (Colace) 100 mg Q12H PRN PO CONSTIPATION; Start 09/05/17 at 21 :00 Magnesium Hydroxide (Milk Of Mag) 30 ml DAILY PRN PO CONSTIPATION; Start 09/05 at 21:00 Famotidine (Pepcid) 20 mg Q12 PO Last administered on 09/15/17 09:10; Admin Dose 20 MG; Start 09/05/17 at 21:00 Albuterol (Proventil 0.083% (Neb)) 2.5 mg Q2 PRN HHN SHORTNESS OF BREATH; Start 09/05/17 at 21:00 Miscellaneous Information 1 ea NOTE XX ; Start 09/05/17 at 21:30 Glucose (Glutose) 15 gm Q15M PRN PO DECREASED GLUCOSE; Start 09/05/17 at 21:30 Glucose (Glutose) 22.5 gm Q15M PRN PO DECREASED GLUCOSE; Start 09/05/17 at 21: 30 Dextrose (D50w Syringe) 25 ml Q15M PRN IV DECREASED GLUCOSE; Start 09/05/17 at 21:30 Dextrose (D50w Syringe) 50 ml Q15M PRN IV DECREASED GLUCOSE; Start 09/05/17 at 21:30 Glucagon (Glucagen) 1 mg Q15M PRN IM DECREASED GLUCOSE; Start 09/05/17 at 21: 30 Glucose (Glutose) 15 gm Q15M PRN BUCCAL DECREASED GLUCOSE; Start 09/05/17 at 21:30 Nystatin (Nystatin Powder) 1 applic BID TOP Last administered on 09/15/17 09: 10; Admin Dose 1 APPLIC; Start 09/06/17 at 09:00 Tamoxifen Citrate (Nolvadex) 20 mg DAILY PO Last administered on 09/15/17 10: 43; Admin Dose 20 MG; Start 09/06/17 at 13:00 Diagnostic Test (Pha) 1 ea 1 ea 02 XX Last administered on 09/14/17 01:38; Admin Dose 1 EA; Start 10/26/17 at 02:00 Ceftriaxone Sodium (Rocephin) 50 ml @ 100 mls/hr Q24H IVPB Last administered on 09/14/17 15:17; Admin Dose 100 MLS/HR; Start 09/08/17 at 14:00 Insulin Aspart (Novolog Insulin Pen) NOVOLOG *MILD* ALGORI... Q4 SC Last administered on 09/15/17 05:03; Admin Dose 1 UNIT; Start 09/12/17 at 01:00 ZEUS TABOR MD Sep 15, 2017 11:09
--- NOTE | 2017-09-15 11:45 | CONS ---
Date/Time of Note Date/Time of Note DATE: 09/15/17 TIME: 11:44 Assessment/Plan Assessment/Plan Chief Complaint/Hosp Course #Her2+/ER+/MT+ metastatic breast ca -pt is non compliant and when she receives therapy, she is quite responsive to therapy -therefore at this time, although she has terminal disease, there are still many more treatment options which she could benefit from -given her Brain mets, I would consider a combination of Xeloda and Lapatinib which can penetrate the blood brain barrier. this will have to start once radiation has completed -can restart Tamoxifen as well #Pleural Effusion with superimposed infection -pt is s/p decortication and pleurodesis -chest tube with considerable serosanguineous drainage -continue antibiotics given + Staph superinfection infection -appreciate pulmonary recs #Brain Mets -pt is s/p resection -pt needs to continue with WBRT with Dr. Ybarra Problems: Consultation Date/Type/Reason Admit Date/Time Sep 05, 2017 at 18:29 Initial Consult Date 09/07/17 Type of Consultation: Hematology Reason for Consultation metastatic her 2 positive breast cancer Referring Provider: MINDY NEGRON 24 HR Interval Summary Free Text/Dictation resumed brain radiation today Exam/Review of Systems Vital Signs Vitals Vital Signs Date Time Temp Pulse Resp B/P Pulse Ox O2 Delivery O2 Flow Rate FiO2 09/15/17 08:19 98.0 64 18 118/71 96 09/15/17 02:53 2.0 27 09/14/17 20:00 Nasal Cannula Intake and Output 09/14/17 09/14/17 09/15/17 15:00 23:00 07:00 Intake Total 550 ml 400 ml Output Total 150 ml 2080 ml Balance 400 ml -1680 ml Exam Constitutional: alert, oriented Psych: no complaints Head: normocephalic Eyes: nl conjunctiva ENMT: nl external ears & nose Neck: supple Respiratory: clear to auscultation, diminished breath sounds (chest tube in place, draining serosanguanous fluid), other Cardiovascular: regular rate and rhythm Gastrointestinal: soft Results Result Diagram: 09/15/17 0616 09/15/17 0616 Results 24 hrs Laboratory Tests Test 09/14/17 13:18 09/14/17 17:15 09/14/17 20:26 09/15/17 00:59 Bedside Glucose 152 175 241 H 194 Test 09/15/17 04:59 09/15/17 06:16 09/15/17 09:00 Bedside Glucose 160 132 White Blood Count 17.7 H Red Blood Count 3.95 L Hemoglobin 9.8 L Hematocrit 30.4 L Mean Corpuscular Volume 77.0 L Mean Corpuscular Hemoglobin 24.8 L Mean Corpuscular Hemoglobin Concent 32.2 Red Cell Distribution Width 22.5 H Platelet Count 202 Mean Platelet Volume 8.6 Neutrophils % 84.0 H Lymphocytes % 7.6 L Monocytes % 5.0 Eosinophils % 0.0 Basophils % 0.2 Nucleated Red Blood Cells % 0.0 Neutrophils # 14.9 H Lymphocytes # 1.4 Monocytes # 0.9 Eosinophils # 0.0 Basophils # 0.0 Nucleated Red Blood Cells # 0.0 Sodium Level 136 Potassium Level 4.5 Chloride Level 104 Carbon Dioxide Level 24 Anion Gap 13 Blood Urea Nitrogen 15 Creatinine 0.42 L Glucose Level 150 Calcium Level 8.0 L Medications Medications Current Medications Dexamethasone (Decadron) 4 mg BID PO Last administered on 09/15/17 09:10; Admin Dose 4 MG; Start 09/05/17 at 21:00 Docusate Sodium (Colace) 200 mg QHS PO Last administered on 09/14/17 20:21; Admin Dose 200 MG; Start 09/05/17 at 21:00 Ondansetron HCl (Zofran Inj) 4 mg Q6H PRN IV NAUSEA AND/OR VOMITING; Start at 21:00 Acetaminophen (Tylenol Tab) 650 mg Q6H PRN PO PAIN LEVEL 1-3 OR FEVER Last administered on 09/13/17 07:13; Admin Dose 650 MG; Start 09/05/17 at 21:00 Oxycodone/ Acetaminophen (Percocet (5/ 325)) 1 tab Q6H PRN PO MODERATE PAIN LEVEL 4-6; Start 09/05/17 at 21:00 Morphine Sulfate (morphine) 2 mg Q4H PRN IV SEVERE PAIN LEVEL 7-10 Last administered on 09/13/17 02:47; Admin Dose 2 MG; Start 09/05/17 at 21:00 Docusate Sodium (Colace) 100 mg Q12H PRN PO CONSTIPATION; Start 09/05/17 at 21 :00 Magnesium Hydroxide (Milk Of Mag) 30 ml DAILY PRN PO CONSTIPATION; Start 09/05 at 21:00 Famotidine (Pepcid) 20 mg Q12 PO Last administered on 09/15/17 09:10; Admin Dose 20 MG; Start 09/05/17 at 21:00 Albuterol (Proventil 0.083% (Neb)) 2.5 mg Q2 PRN HHN SHORTNESS OF BREATH; Start 09/05/17 at 21:00 Miscellaneous Information 1 ea NOTE XX ; Start 09/05/17 at 21:30 Glucose (Glutose) 15 gm Q15M PRN PO DECREASED GLUCOSE; Start 09/05/17 at 21:30 Glucose (Glutose) 22.5 gm Q15M PRN PO DECREASED GLUCOSE; Start 09/05/17 at 21: 30 Dextrose (D50w Syringe) 25 ml Q15M PRN IV DECREASED GLUCOSE; Start 09/05/17 at 21:30 Dextrose (D50w Syringe) 50 ml Q15M PRN IV DECREASED GLUCOSE; Start 09/05/17 at 21:30 Glucagon (Glucagen) 1 mg Q15M PRN IM DECREASED GLUCOSE; Start 09/05/17 at 21: 30 Glucose (Glutose) 15 gm Q15M PRN BUCCAL DECREASED GLUCOSE; Start 09/05/17 at 21:30 Nystatin (Nystatin Powder) 1 applic BID TOP Last administered on 09/15/17 09: 10; Admin Dose 1 APPLIC; Start 09/06/17 at 09:00 Tamoxifen Citrate (Nolvadex) 20 mg DAILY PO Last administered on 09/15/17 10: 43; Admin Dose 20 MG; Start 09/06/17 at 13:00 Diagnostic Test (Pha) 1 ea 1 ea 02 XX Last administered on 09/14/17 01:38; Admin Dose 1 EA; Start 09/07/17 at 02:00 Ceftriaxone Sodium (Rocephin) 50 ml @ 100 mls/hr Q24H IVPB Last administered on 09/14/17 15:17; Admin Dose 100 MLS/HR; Start 09/08/17 at 14:00 Insulin Aspart (Novolog Insulin Pen) NOVOLOG *MILD* ALGORI... Q4 SC Last administered on 09/15/17 05:03; Admin Dose 1 UNIT; Start 10/31/17 at 01:00 ANTWON DYE M.D. Sep 15, 2017 11:45
[2017-09-15] MEDS: CEFTRIAXONE 1 GM/50 ML (PMX) 50 ML IVPB SCH (13:13)
--- NOTE | 2017-09-15 15:39 | PN ---
DATE: 09/15/2017 SUBJECTIVE: No events overnight. The patient is alert, looks comfortable. Denies pain. She is af ebrile. WBC 17.7, platelets 220, neutrophils 84. BUN 15, creatinine 0.42. Pathology if the fluid revealed malignancy consistent with metastatic carcinoma compatible with breast primary. Cultures n ot sent. ANTIMICROBIALS: The patient is on IV Rocephin. INDWELLINGS: Right chest tube. PHYSICAL EXAMINATION: GENERAL: This is an obese, well-developed, middle-aged woman who is alert, in no distress. HEENT: Head atraumatic, normocephalic. Sclerae anicteric. Buccal mucosa dry. NECK: Supple. CHEST: Rise symmetrical. Breath sounds diminished to bases. HEART: S1, S2. ABDOMEN: Soft, bowel tones present. EXTREMITIES: Without cyanosis. ASSESSMENT: 1. Loculated right pleural effusion status post biopsy with pleurocentesis. 2. Metastatic breast cancer. 3. Diabetes. 4. Obesity. 5. History of craniectomy for brain metastases. PLAN: Patient remained stable. Pleural fluid culture on admission grew oxacillin-sensitive Staphyl ococcus aureus. She remains on Rocephin. Follow recommendations of consultants. Dictated By: ZULEYMA ALEX [employer] for FELISHA LU/AFIA Conf#: [id number] DID#: [id number]
--- NOTE | 2017-09-15 16:37 | RADRPT ---
PROCEDURE: XR Chest. CLINICAL INDICATION: Pneumonia. Pleural effusion. TECHNIQUE: Single portable view of the chest was obtained. COMPARISON: 09/14/2017 and additional priors FINDINGS: Stable position of a right-sided chest tube. Possible tunneled chest tube over the right lung base. Stable partially obscured cardiomediastinal silhouette. Similar likely right pleural effusion with r ight perihilar and basilar airspace opacities.. Left lung is clear. No evidence of pneumothorax. IMPRESSION: 1. Right-sided chest tube and possible tunneled right basilar chest tube. 2. Similar right perihilar and basilar airspace opacities with loculated right pleural effusion. RPTAT:AAJJ Physician Cely Date Time Electronically viewed and signed by Corinne Cortez Physician on 09/15/2017 16:36 /
--- NOTE | 2017-09-15 16:38 | CONS ---
Date/Time of Note Date/Time of Note DATE: 09/15/17 TIME: 16:36 Consult Date/Type/Reason Admit Date/Time Sep 05, 2017 at 18:29 Initial Consult Date 09/06/17 Type of Consultation: Pulmonary Ordering Provider: MINDY NEGRON Subjective Patient continues to remain stable no new events. Objective Vital Signs Date Time Temp Pulse Resp B/P Pulse Ox O2 Delivery O2 Flow Rate FiO2 09/15/17 13:38 98.5 87 18 119/66 97 09/15/17 02:53 2.0 27 09/14/17 20:00 Nasal Cannula Intake and Output 09/14/17 09/14/17 09/15/17 15:00 23:00 07:00 Intake Total 550 ml 400 ml Output Total 150 ml 2080 ml Balance 400 ml -1680 ml Exam GENERAL: Well-nourished well-developed lady comfortable at rest VITAL SIGNS: per chart NECK: Supple. No JVD or lymphadenopathy. CARDIAC EXAM: S1, S2. No added sounds or murmurs. CHEST: Decreased air entry right lung. ABDOMEN: Soft, nontender. No guarding or rebound. EXTREMITIES: No cyanosis, clubbing or edema. NEUROLOGIC: Generalized weakness. No focal deficits. Results/Medications Result Diagram: 09/15/17 0616 09/15/17 0616 Results 24 hrs Laboratory Tests Test 09/14/17 17:15 09/14/17 20:26 09/15/17 00:59 09/15/17 04:59 Bedside Glucose 175 241 H 194 160 Test 09/15/17 06:16 09/15/17 09:00 09/15/17 12:49 White Blood Count 17.7 H Red Blood Count 3.95 L Hemoglobin 9.8 L Hematocrit 30.4 L Mean Corpuscular Volume 77.0 L Mean Corpuscular Hemoglobin 24.8 L Mean Corpuscular Hemoglobin Concent 32.2 Red Cell Distribution Width 22.5 H Platelet Count 202 Mean Platelet Volume 8.6 Neutrophils % 84.0 H Lymphocytes % 7.6 L Monocytes % 5.0 Eosinophils % 0.0 Basophils % 0.2 Nucleated Red Blood Cells % 0.0 Neutrophils # 14.9 H Lymphocytes # 1.4 Monocytes # 0.9 Eosinophils # 0.0 Basophils # 0.0 Nucleated Red Blood Cells # 0.0 Sodium Level 136 Potassium Level 4.5 Chloride Level 104 Carbon Dioxide Level 24 Anion Gap 13 Blood Urea Nitrogen 15 Creatinine 0.42 L Glucose Level 150 Calcium Level 8.0 L Bedside Glucose 132 129 Medications Current Medications Dexamethasone (Decadron) 4 mg BID PO Last administered on 09/15/17 09:10; Admin Dose 4 MG; Start 09/05/17 at 21:00 Docusate Sodium (Colace) 200 mg QHS PO Last administered on 09/14/17 20:21; Admin Dose 200 MG; Start 09/05/17 at 21:00 Ondansetron HCl (Zofran Inj) 4 mg Q6H PRN IV NAUSEA AND/OR VOMITING; Start at 21:00 Acetaminophen (Tylenol Tab) 650 mg Q6H PRN PO PAIN LEVEL 1-3 OR FEVER Last administered on 09/13/17 07:13; Admin Dose 650 MG; Start 09/05/17 at 21:00 Oxycodone/ Acetaminophen (Percocet (5/ 325)) 1 tab Q6H PRN PO MODERATE PAIN LEVEL 4-6; Start 09/05/17 at 21:00 Morphine Sulfate (morphine) 2 mg Q4H PRN IV SEVERE PAIN LEVEL 7-10 Last administered on 09/13/17 02:47; Admin Dose 2 MG; Start 09/05/17 at 21:00 Docusate Sodium (Colace) 100 mg Q12H PRN PO CONSTIPATION; Start 09/05/17 at 21 :00 Magnesium Hydroxide (Milk Of Mag) 30 ml DAILY PRN PO CONSTIPATION; Start 09/05 at 21:00 Famotidine (Pepcid) 20 mg Q12 PO Last administered on 09/15/17 09:10; Admin Dose 20 MG; Start 09/05/17 at 21:00 Albuterol (Proventil 0.083% (Neb)) 2.5 mg Q2 PRN HHN SHORTNESS OF BREATH; Start 09/05/17 at 21:00 Miscellaneous Information 1 ea NOTE XX ; Start 09/05/17 at 21:30 Glucose (Glutose) 15 gm Q15M PRN PO DECREASED GLUCOSE; Start 09/05/17 at 21:30 Glucose (Glutose) 22.5 gm Q15M PRN PO DECREASED GLUCOSE; Start 09/05/17 at 21: 30 Dextrose (D50w Syringe) 25 ml Q15M PRN IV DECREASED GLUCOSE; Start 09/05/17 at 21:30 Dextrose (D50w Syringe) 50 ml Q15M PRN IV DECREASED GLUCOSE; Start 09/05/17 at 21:30 Glucagon (Glucagen) 1 mg Q15M PRN IM DECREASED GLUCOSE; Start 09/05/17 at 21: 30 Glucose (Glutose) 15 gm Q15M PRN BUCCAL DECREASED GLUCOSE; Start 09/05/17 at 21:30 Nystatin (Nystatin Powder) 1 applic BID TOP Last administered on 09/15/17 09: 10; Admin Dose 1 APPLIC; Start 09/06/17 at 09:00 Tamoxifen Citrate (Nolvadex) 20 mg DAILY PO Last administered on 09/15/17 10: 43; Admin Dose 20 MG; Start 09/06/17 at 13:00 Diagnostic Test (Pha) 1 ea 1 ea 02 XX Last administered on 09/14/17 01:38; Admin Dose 1 EA; Start 09/07/17 at 02:00 Ceftriaxone Sodium (Rocephin) 50 ml @ 100 mls/hr Q24H IVPB Last administered on 09/15/17 13:13; Admin Dose 100 MLS/HR; Start 09/08/17 at 14:00 Insulin Aspart (Novolog Insulin Pen) NOVOLOG *MILD* ALGORI... Q4 SC Last administered on 09/15/17 05:03; Admin Dose 1 UNIT; Start 09/12/17 at 01:00 Assessment/Plan Chief Complaint/Hosp Course Assessment 1. Metastatic breast cancer with recurrent right pleural effusion. Cultures growing gram-positive cocci consistent with staph aureus. 2. Loculated pleural effusion possible empyema status post decortication and pleurodesis. 3. CORSET MAKER metastasis currently receiving steroids and radiation therapy Plan 1. Continue chest tube drainage. Previous cultures grew staph aureus. Antibiotic management discussed with infectious diseases 2. Continue oncology recommendations continues radiation therapy for CORSET MAKER metastasis 3. Continue antibiotic coverage for staph infection. Consider transfer to [facility] Problems: MARTINEZ MASCORRO MD, [facility] Sep 15, 2017 16:38
--- NOTE | 2017-09-15 18:56 | PN ---
Date/Time of Note Date/Time of Note DATE: 09/15/17 TIME: 18:56 Assessment/Plan Lines/Catheters IV Catheter Type (from Nrs): Saline Lock Francois in Place (from Nrs): No Assessment/Plan Chief Complaint/Hosp Course IMPRESSION: Right loculated pleural effusion. R status post right VATS pleurodesis decortication Patient feels much better CT 390 cc Less shortness of breath Check chest x-ray Will continue chest tube suction Problems: Subjective 24 Hr Interval Summary Constitutional: improved Pain Control: mild Exam/Review of Systems Vital Signs Vitals Vital Signs Date Time Temp Pulse Resp B/P Pulse Ox O2 Delivery O2 Flow Rate FiO2 09/15/17 13:38 98.5 87 18 119/66 97 09/15/17 02:53 2.0 27 09/14/17 20:00 Nasal Cannula Intake and Output 09/14/17 09/14/17 09/15/17 15:00 23:00 07:00 Intake Total 550 ml 400 ml Output Total 150 ml 2080 ml Balance 400 ml -1680 ml Exam Neck: non-tender, supple Respiratory: clear to auscultation, normal air movement Cardiovascular: nl pulses, regular rate and rhythm Gastrointestinal: nl liver, spleen, non-tender, soft Results Result Diagram: 09/15/1716 09/15/17615 DEVIKA MENA MD Sep 15, 2017 18:56
[2017-09-15] MEDS: DOCUSATE SODIUM 100 MG CAP PO SCH (20:17)
[2017-09-16] MEDS: ACCU-CHEK XX SCH (02:00)
[2017-09-16 02:27] VITALS: BP 114/64; RESP 19
[2017-09-16 05:27] LABS: ABNORMAL IP MESSAGE 1; BASOPHILS % 0.2 % (0.0-2.0); HEMATOCRIT 30.2 % (37.0-47.0); HEMOGLOBIN 9.2 g/dl (12.0-16.0); LYMPHOCYTES # 1.2 10^3/ul (0.8-2.9); LYMPHOCYTES % 10.5 % (15.0-51.0); MEAN CORPUSCULAR HEMOGLOBIN 23.9 pg (29.0-33.0); MEAN CORPUSCULAR HGB CONC 30.5 g/dl (32.0-37.0); MEAN CORPUSCULAR VOLUME 78.4 fl (82.0-101.0); MEAN PLATELET VOLUME 8.8 fl (7.4-10.4); MONOCYTE # 0.6 10^3/ul (0.3-0.9); MONOCYTES % 5.5 % (0.0-11.0); NEUTROPHIL # 9.3 10^3/ul (1.6-7.5); NEUTROPHILS % 79.8 % (39.0-77.0); PLATELET COUNT 190 10^3/UL (140-415); RED BLOOD COUNT 3.85 10^6/ul (4.20-5.40); WHITE BLOOD COUNT 11.7 10^3/ul (4.8-10.8)
[2017-09-16 05:33] LABS: POSITIVE DIFF @See below
[2017-09-16 06:09] LABS: CALCIUM 8.1 mg/dl (8.4-10.2); CREATININE 0.41 mg/dl (0.44-1.00); POTASSIUM 4.6 mmol/L (3.5-5.1)
[2017-09-16] MEDS: INSULIN ASPART [NOVOLOG] 3 ML PEN SC SCH ×4 (07:50→20:21)
[2017-09-16 08:35] VITALS: BP 133/71; RESP 19
[2017-09-16] MEDS: NYSTATIN 30 GM POWDER BTL TOP SCH ×2 (09:00→20:21)
[2017-09-16] MEDS: FAMOTIDINE 20 MG TAB PO SCH ×2 (09:52→20:18)
[2017-09-16] MEDS: DEXAMETHASONE 4 MG TAB PO SCH ×2 (09:52→20:21)
[2017-09-16] MEDS: TAMOXIFEN 10 MG TAB PO SCH (09:56)
--- NOTE | 2017-09-16 09:58 | RADRPT ---
PROCEDURE: XR Chest. CLINICAL INDICATION: Pneumonia, CHF. TECHNIQUE: Single portable view of the chest was obtained COMPARISON: CR CHEST 03/23/2016; CR CHEST 03/22/2016; CR CHEST 03/17/2016 FINDINGS: The cardiomediastinal silhouette is stable in size and configuration. A right-sided chest tube tip o verlies the anterior fourth rib. A drainage catheter overlies the right base. Rounded opacity within the right mid lung probably represents pleural fluid within the minor fissure. Interval slight inc rease size of a right-sided pleural effusion and increased right base consolidation or atelectasis i s noted. No evidence of a pneumothorax. IMPRESSION: 1. Increased sized right-sided pleural effusion. Rounded opacity within the right mid lung likely r epresents pleural fluid in the major fissure. 2. Increased consolidation or atelectasis within the right lower lobe. 3. Right chest tube and right base drainage catheter. RPTAT: HRSR Physician Clarissa Date Time Electronically viewed and signed by Elham Torres Physician on 09/16/2017 09:57 RR/
--- NOTE | 2017-09-16 12:51 | PN ---
Date/Time of Note Date/Time of Note DATE: 09/16/17 TIME: 12:46 Assessment/Plan VTE Prophylaxis VTE Prophylaxis Intervention: contraindicated, SCD's Lines/Catheters IV [facility] Type (from [facility] Saline Lock Urinary Cath still in place: No Assessment/Plan Assessment/Plan 1. Empyema 2/2 staph aureus s/p VATS 09/12/17 - Patient doing well and chest tube still in place and draining serous fluid - repeat CXR shows increased sized right-sided pleural effusion. Rounded opacity within the right mid lung likely represents pleural fluid in the major fissure. Increased consolidation or atelectasis within the right lower lobe. - started on incentive spirometry - CT chest showed trace loculated pleural effusion with possible empyema in addition to malignant effusion. - CT surgery on board and appreciate consultation - ID on board and recommendations appreciated. continue on IV antibiotics, day 8 - Ultrasound-guided thoracentesis performed, cultures showing staph aureus 2. Dysfunctional Pleurx catheter - Pulmonology on board and consultation appreciated - Respiratory status stable at this time 3. Cellulitis, area around catheter- improving - ID on board and recommendations appreciated. Continue on antibiotics 4. Metastatic breast cancer, lung, liver, brain, s/p craniectomy - currently receiving radiation therapy and tamoxifen and Decadron - Heme/onc on board and consultation appreciated - Radiation as scheduled 5. Diabetes mellitus - Currently stable 6. Obesity - Counseled about diet and improving exercise routine when able 7. Disposition - Continue monitoring on med/surg while chest tube in place Subjective 24 Hr Interval Summary Free Text/Dictation Patient feeling better this am and feels like shes getting more air entry with deep breaths. Denies any new complaints. swelling right side of head and neck improving. No acute overnight events. fluid from chest tube clearing as well. Exam/Review of Systems Vital Signs Vitals Vital Signs Date Time Temp Pulse Resp B/P Pulse Ox O2 Delivery O2 Flow Rate FiO2 09/16/17 08:35 98.6 56 19 133/71 99 09/15/17 20:55 21 09/15/17 02:53 2.0 09/14/17 20:00 Nasal Cannula Intake and Output 09/15/17 09/15/17 09/16/17 15:00 23:00 07:00 Intake Total 50 ml Output Total 300 ml Balance 50 ml -300 ml Exam General: Patient awake and alert, no acute distress. Head: R side craniectomy site healing well. fluctuant edema right side but improving Eyes: EOMI, pupils reactive to light Neck: Supple, nontender, midline Respiratory: diminished air entry with chest tube in place draining yellow serous fluid Cardiovascular: regular rate, no obvious murmurs Gastrointestinal: non-tender to palpation, bowel sounds heard. Neurological: Moves all extremities spontaneously Results Result Diagram: 09/16/17 0426 09/16/17 0426 Results 24 hrs Laboratory Tests Test 09/15/17 12:49 09/15/17 17:46 09/15/17 20:12 09/15/17 22:09 Bedside Glucose 129 206 232 H 266 H Test 09/16/17 02:49 09/16/17 04:26 09/16/17 08:47 09/16/17 12:05 Bedside Glucose 199 133 99 White Blood Count 11.7 #H Red Blood Count 3.85 L Hemoglobin 9.2 L Hematocrit 30.2 L Mean Corpuscular Volume 78.4 L Mean Corpuscular Hemoglobin 23.9 L Mean Corpuscular Hemoglobin Concent 30.5 L Red Cell Distribution Width 23.0 H Platelet Count 190 Mean Platelet Volume 8.8 Neutrophils % 79.8 H Lymphocytes % 10.5 L Monocytes % 5.5 Eosinophils % 0.0 Basophils % 0.2 Nucleated Red Blood Cells % 0.0 Neutrophils # 9.3 H Lymphocytes # 1.2 Monocytes # 0.6 Eosinophils # 0.0 Basophils # 0.0 Nucleated Red Blood Cells # 0.0 Sodium Level 136 Potassium Level 4.6 Chloride Level 106 Carbon Dioxide Level 23 Anion Gap 12 Blood Urea Nitrogen 19 Creatinine 0.41 L Glucose Level 177 Calcium Level 8.1 L Medications Medications Current Medications Dexamethasone (Decadron) 4 mg BID PO Last administered on 09/16/17 09:52; Admin Dose 4 MG; Start 09/05/17 at 21:00 Docusate Sodium (Colace) 200 mg QHS PO Last administered on 09/15/17 20:17; Admin Dose 200 MG; Start 09/05/17 at 21:00 Ondansetron HCl (Zofran Inj) 4 mg Q6H PRN IV NAUSEA AND/OR VOMITING; Start at 21:00 Acetaminophen (Tylenol Tab) 650 mg Q6H PRN PO PAIN LEVEL 1-3 OR FEVER Last administered on 09/13/17 07:13; Admin Dose 650 MG; Start 09/05/17 at 21:00 Oxycodone/ Acetaminophen (Percocet (5/ 325)) 1 tab Q6H PRN PO MODERATE PAIN LEVEL 4-6; Start 09/05/17 at 21:00 Morphine Sulfate (morphine) 2 mg Q4H PRN IV SEVERE PAIN LEVEL 7-10 Last administered on 09/13/17 02:47; Admin Dose 2 MG; Start 09/05/17 at 21:00 Docusate Sodium (Colace) 100 mg Q12H PRN PO CONSTIPATION; Start 09/05/17 at 21 :00 Magnesium Hydroxide (Milk Of Mag) 30 ml DAILY PRN PO CONSTIPATION; Start 09/05 at 21:00 Famotidine (Pepcid) 20 mg Q12 PO Last administered on 09/16/17 09:52; Admin Dose 20 MG; Start 09/05/17 at 21:00 Albuterol (Proventil 0.083% (Neb)) 2.5 mg Q2 PRN HHN SHORTNESS OF BREATH; Start 09/05/17 at 21:00 Miscellaneous Information 1 ea NOTE XX ; Start 09/05/17 at 21:30 Glucose (Glutose) 15 gm Q15M PRN PO DECREASED GLUCOSE; Start 09/05/17 at 21:30 Glucose (Glutose) 22.5 gm Q15M PRN PO DECREASED GLUCOSE; Start 09/05/17 at 21: 30 Dextrose (D50w Syringe) 25 ml Q15M PRN IV DECREASED GLUCOSE; Start 09/05/17 at 21:30 Dextrose (D50w Syringe) 50 ml Q15M PRN IV DECREASED GLUCOSE; Start 09/05/17 at 21:30 Glucagon (Glucagen) 1 mg Q15M PRN IM DECREASED GLUCOSE; Start 09/05/17 at 21: 30 Glucose (Glutose) 15 gm Q15M PRN BUCCAL DECREASED GLUCOSE; Start 09/05/17 at 21:30 Nystatin (Nystatin Powder) 1 applic BID TOP Last administered on 09/15/17 22: 12; Admin Dose 1 APPLIC; Start 09/06/17 at 09:00 Tamoxifen Citrate 20 mg 20 mg DAILY PO Last administered on 09/16/17 09:56; Admin Dose 20 MG; Start 09/06/17 at 13:00 Ceftriaxone Sodium (Rocephin) 50 ml @ 100 mls/hr Q24H IVPB Last administered on 09/15/17t 13:13; Admin Dose 100 MLS/HR; Start 09/08/17 at 14:00 Diagnostic Test (Pha) (Accu-Chek) 1 ea 02 XX ; Start 09/16/17 at 02:00 ZEUS TABOR MD Sep 16, 2017 12:51
[2017-09-16] MEDS: CEFTRIAXONE 1 GM/50 ML (PMX) 50 ML IVPB SCH (13:27)
--- NOTE | 2017-09-16 14:49 | PN ---
Date/Time of Note Date/Time of Note DATE: 09/16/17 TIME: 14:48 Assessment/Plan Lines/Catheters IV Catheter Type (from Nrsg): Saline Lock Francois in Place (from Nrsg): No Assessment/Plan Chief Complaint/Hosp Course IMPRESSION: Right loculated pleural effusion. R status post right VATS pleurodesis decortication Patient feels much better CT 300 cc Less shortness of breath Check chest x-ray Will continue chest tube suction Problems: Subjective 24 Hr Interval Summary Constitutional: improved Pain Control: mild Exam/Review of Systems Vital Signs Vitals Vital Signs Date Time Temp Pulse Resp B/P Pulse Ox O2 Delivery O2 Flow Rate FiO2 09/16/17 08:35 98.6 56 19 133/71 99 09/15/17 20:55 21 09/15/17 02:53 2.0 09/14/17 20:00 Nasal Cannula Intake and Output 09/15/17 09/15/17 09/16/17 15:00 23:00 07:00 Intake Total 50 ml Output Total 300 ml Balance 50 ml -300 ml Exam ENMT: mucosa pink and moist, nl external ears & nose, nl lips & teeth, nl nasal mucosa & septum Neck: non-tender, supple Respiratory: clear to auscultation, normal air movement Results Result Diagram: 09/16/17 0426 09/16/17 042 DEVIKA MENA MD Sep 16, 2017 14:49
--- NOTE | 2017-09-16 15:33 | CONS ---
Date/Time of Note Date/Time of Note DATE: 09/16/17 TIME: 15:32 Consult Date/Type/Reason Admit Date/Time Sep 05, 2017 at 18:29 Initial Consult Date 09/07/17 Type of Consultation: Pulmonary Ordering Provider: MINDY NEGRON Subjective No events. Objective Vital Signs Date Time Temp Pulse Resp B/P Pulse Ox O2 Delivery O2 Flow Rate FiO2 09/16/17 08:35 98.6 56 19 133/71 99 09/15/17 20:55 21 09/15/17 02:53 2.0 09/14/17 20:00 Nasal Cannula Intake and Output 09/15/17 09/15/17 09/16/17 15:00 23:00 07:00 Intake Total 50 ml Output Total 300 ml Balance 50 ml -300 ml Exam HEENT: Neck supple; no JVD; no LAD CVS: RRR, S1 and S2 CHEST: Decreased BS right ABD: Soft, NT, + BS EXT: No c/c/e Results/Medications Result Diagram: 09/16/17 0426 09/16/17 0426 Results 24 hrs Laboratory Tests Test 09/15/17 17:46 09/15/17 20:12 09/15/17 22:09 09/16/17 02:49 Bedside Glucose 206 232 H 266 H 199 Test 09/16/17 04:26 09/16/17 08:47 09/16/17 12:05 White Blood Count 11.7 #H Red Blood Count 3.85 L Hemoglobin 9.2 L Hematocrit 30.2 L Mean Corpuscular Volume 78.4 L Mean Corpuscular Hemoglobin 23.9 L Mean Corpuscular Hemoglobin Concent 30.5 L Red Cell Distribution Width 23.0 H Platelet Count 190 Mean Platelet Volume 8.8 Neutrophils % 79.8 H Lymphocytes % 10.5 L Monocytes % 5.5 Eosinophils % 0.0 Basophils % 0.2 Nucleated Red Blood Cells % 0.0 Neutrophils # 9.3 H Lymphocytes # 1.2 Monocytes # 0.6 Eosinophils # 0.0 Basophils # 0.0 Nucleated Red Blood Cells # 0.0 Sodium Level 136 Potassium Level 4.6 Chloride Level 106 Carbon Dioxide Level 23 Anion Gap 12 Blood Urea Nitrogen 19 Creatinine 0.41 L Glucose Level 177 Calcium Level 8.1 L Bedside Glucose 133 99 Medications Current Medications Dexamethasone (Decadron) 4 mg BID PO Last administered on 09/16/17 09:52; Admin Dose 4 MG; Start 09/05/17 at 21:00 Docusate Sodium (Colace) 200 mg QHS PO Last administered on 09/15/17 20:17; Admin Dose 200 MG; Start 09/05/17 at 21:00 Ondansetron HCl (Zofran Inj) 4 mg Q6H PRN IV NAUSEA AND/OR VOMITING; Start at 21:00 Acetaminophen (Tylenol Tab) 650 mg Q6H PRN PO PAIN LEVEL 1-3 OR FEVER Last administered on 09/13/17 07:13; Admin Dose 650 MG; Start 09/05/17 at 21:00 Oxycodone/ Acetaminophen (Percocet (5/ 325)) 1 tab Q6H PRN PO MODERATE PAIN LEVEL 4-6; Start 09/05/17 at 21:00 Morphine Sulfate (morphine) 2 mg Q4H PRN IV SEVERE PAIN LEVEL 7-10 Last administered on 09/13/17 02:47; Admin Dose 2 MG; Start 09/05/17 at 21:00 Docusate Sodium (Colace) 100 mg Q12H PRN PO CONSTIPATION; Start 09/05/17 at 21 :00 Magnesium Hydroxide (Milk Of Mag) 30 ml DAILY PRN PO CONSTIPATION; Start 09/05 at 21:00 Famotidine (Pepcid) 20 mg Q12 PO Last administered on 09/16/17 09:52; Admin Dose 20 MG; Start 09/05/17 at 21:00 Albuterol (Proventil 0.083% (Neb)) 2.5 mg Q2 PRN HHN SHORTNESS OF BREATH; Start 09/05/17 at 21:00 Miscellaneous Information 1 ea NOTE XX ; Start 09/05/17 at 21:30 Glucose (Glutose) 15 gm Q15M PRN PO DECREASED GLUCOSE; Start 09/05/17 at 21:30 Glucose (Glutose) 22.5 gm Q15M PRN PO DECREASED GLUCOSE; Start 09/05/17 at 21: 30 Dextrose (D50w Syringe) 25 ml Q15M PRN IV DECREASED GLUCOSE; Start 09/05/17 at 21:30 Dextrose (D50w Syringe) 50 ml Q15M PRN IV DECREASED GLUCOSE; Start 09/05/17 at 21:30 Glucagon (Glucagen) 1 mg Q15M PRN IM DECREASED GLUCOSE; Start 09/05/17 at 21: 30 Glucose (Glutose) 15 gm Q15M PRN BUCCAL DECREASED GLUCOSE; Start 09/05/17 at 21:30 Nystatin (Nystatin Powder) 1 applic BID TOP Last administered on 09/15/17 22: 12; Admin Dose 1 APPLIC; Start 09/06/17 at 09:00 Tamoxifen Citrate 20 mg 20 mg DAILY PO Last administered on 09/16/17 09:56; Admin Dose 20 MG; Start 09/06/17 at 13:00 Ceftriaxone Sodium (Rocephin) 50 ml @ 100 mls/hr Q24H IVPB Last administered on 09/16/17 13:27; Admin Dose 100 MLS/HR; Start 09/08/17 at 14:00 Diagnostic Test (Pha) (Accu-Chek) 1 ea 02 XX ; Start 09/16/17 at 02:00 Assessment/Plan Additional Assessment/Plan IMP: 1. Metastatic breast cancer with recurrent right pleural effusion. Cultures growing gram-positive cocci consistent with staph aureus. 2. Loculated pleural effusion possible empyema status post decortication and pleurodesis. 3. CALCULATION REVIEWER metastasis currently receiving steroids and radiation therapy RECS: 1. CT drainage per CTS 2. Continue oncology recommendations continues radiation therapy for CALCULATION REVIEWER metastasis 3. Continue antibiotic coverage for staph infection. ARELY KAYE MD Sep 16, 2017 15:33
--- NOTE | 2017-09-16 16:20 | CONS ---
Date/Time of Note Date/Time of Note DATE: 09/16/17 TIME: 16:11 Consultation Date/Type/Reason Admit Date/Time Sep 05, 2017 at 18:29 Initial Consult Date SUBJECTIVE: [age] y/o female with Empyema 2/2 staph aureus s/p VATS 09/12/17. Metastatic breast CA. No events overnight. The patient is alert, looks comfortable. Denies fever, chills,and pain. VS: 133/71 P:56 R:19 T:98.6 SO2:99% LABS: WBC- 11.7 H&H: 9.2/30.2 BMP-stable. Pathology : Right lung deep peel, decortication: -- Metastatic carcinoma, with morphological features compatible with a breast primary. -- Hemorrhagic fibrinous and focally neutrophilic exudate. Pleural fluid culture on admission grew oxacillin-sensitive Staphylococcus aureus. ANTIMICROBIALS: The patient is on IV Rocephin. INDWELLINGS: Right chest tube. PHYSICAL EXAMINATION: GENERAL: This is an obese, well-developed, middle-aged woman who is alert, in no distress. HEENT: Head atraumatic, normocephalic. Sclerae anicteric. Buccal mucosa dry. NECK: Supple. CHEST: Rise symmetrical. Breath sounds diminished to bases. HEART: S1, S2. ABDOMEN: Soft, bowel tones present. EXTREMITIES: Without cyanosis. ASSESSMENT: 1. Loculated right pleural effusion status post biopsy with pleurocentesis. 2. Metastatic breast cancer. 3. Diabetes. 4. Obesity. 5. History of craniectomy for brain metastases. PLAN: Patient remained stable. Continue IV Rocephin. Currently on IV dexamethasone. Follow recommendations of consultants. Type of Consultation: ID Referring Provider: MINDY NEGRON Exam/Review of Systems Vital Signs Vitals Vital Signs Date Time Temp Pulse Resp B/P Pulse Ox O2 Delivery O2 Flow Rate FiO2 09/16/17 08:35 98.6 56 19 133/71 99 09/15/17 20:55 21 09/15/17 02:53 2.0 09/14/17 20:00 Nasal Cannula Intake and Output 09/15/17 09/15/17 09/16/17 15:00 23:00 07:00 Intake Total 50 ml Output Total 300 ml Balance 50 ml -300 ml Results Result Diagram: 09/16/17 0426 09/16/17 0426 Results 24 hrs Laboratory Tests Test 09/15/17 17:46 09/15/17 20:12 09/15/17 22:09 09/16/17 02:49 Bedside Glucose 206 232 H 266 H 199 Test 09/16/17 04:26 09/16/17 08:47 09/16/17 12:05 White Blood Count 11.7 #H Red Blood Count 3.85 L Hemoglobin 9.2 L Hematocrit 30.2 L Mean Corpuscular Volume 78.4 L Mean Corpuscular Hemoglobin 23.9 L Mean Corpuscular Hemoglobin Concent 30.5 L Red Cell Distribution Width 23.0 H Platelet Count 190 Mean Platelet Volume 8.8 Neutrophils % 79.8 H Lymphocytes % 10.5 L Monocytes % 5.5 Eosinophils % 0.0 Basophils % 0.2 Nucleated Red Blood Cells % 0.0 Neutrophils # 9.3 H Lymphocytes # 1.2 Monocytes # 0.6 Eosinophils # 0.0 Basophils # 0.0 Nucleated Red Blood Cells # 0.0 Sodium Level 136 Potassium Level 4.6 Chloride Level 106 Carbon Dioxide Level 23 Anion Gap 12 Blood Urea Nitrogen 19 Creatinine 0.41 L Glucose Level 177 Calcium Level 8.1 L Bedside Glucose 133 99 Medications Medications Current Medications Dexamethasone (Decadron) 4 mg BID PO Last administered on 09/16/17 09:52; Admin Dose 4 MG; Start 09/05/17 at 21:00 Docusate Sodium (Colace) 200 mg QHS PO Last administered on 09/15/17 20:17; Admin Dose 200 MG; Start 09/05/17 at 21:00 Ondansetron HCl (Zofran Inj) 4 mg Q6H PRN IV NAUSEA AND/OR VOMITING; Start at 21:00 Acetaminophen (Tylenol Tab) 650 mg Q6H PRN PO PAIN LEVEL 1-3 OR FEVER Last administered on 09/13/17 07:13; Admin Dose 650 MG; Start 09/05/17 at 21:00 Oxycodone/ Acetaminophen (Percocet (5/ 325)) 1 tab Q6H PRN PO MODERATE PAIN LEVEL 4-6; Start 09/05/17 at 21:00 Morphine Sulfate (morphine) 2 mg Q4H PRN IV SEVERE PAIN LEVEL 7-10 Last administered on 09/13/17 02:47; Admin Dose 2 MG; Start 09/05/17 at 21:00 Docusate Sodium (Colace) 100 mg Q12H PRN PO CONSTIPATION; Start 09/05/17 at 21 :00 Magnesium Hydroxide (Milk Of Mag) 30 ml DAILY PRN PO CONSTIPATION; Start 09/05 at 21:00 Famotidine (Pepcid) 20 mg Q12 PO Last administered on 09/16/17 09:52; Admin Dose 20 MG; Start 09/05/17 at 21:00 Albuterol (Proventil 0.083% (Neb)) 2.5 mg Q2 PRN HHN SHORTNESS OF BREATH; Start 09/05/17 at 21:00 Miscellaneous Information 1 ea NOTE XX ; Start 09/05/17 at 21:30 Glucose (Glutose) 15 gm Q15M PRN PO DECREASED GLUCOSE; Start 09/05/17 at 21:30 Glucose (Glutose) 22.5 gm Q15M PRN PO DECREASED GLUCOSE; Start 09/05/17 at 21: 30 Dextrose (D50w Syringe) 25 ml Q15M PRN IV DECREASED GLUCOSE; Start 09/05/17 at 21:30 Dextrose (D50w Syringe) 50 ml Q15M PRN IV DECREASED GLUCOSE; Start 09/05/17 at 21:30 Glucagon (Glucagen) 1 mg Q15M PRN IM DECREASED GLUCOSE; Start 09/05/17 at 21: 30 Glucose (Glutose) 15 gm Q15M PRN BUCCAL DECREASED GLUCOSE; Start 09/05/17 at 21:30 Nystatin (Nystatin Powder) 1 applic BID TOP Last administered on 09/15/17 22: 12; Admin Dose 1 APPLIC; Start 09/06/17 at 09:00 Tamoxifen Citrate 20 mg 20 mg DAILY PO Last administered on 09/16/17 09:56; Admin Dose 20 MG; Start 09/06/17 at 13:00 Ceftriaxone Sodium (Rocephin) 50 ml @ 100 mls/hr Q24H IVPB Last administered on 09/16/17 13:27; Admin Dose 100 MLS/HR; Start 09/08/17 at 14:00 Diagnostic Test (Pha) (Accu-Chek) 1 ea 02 XX ; Start 09/16/17 at 02:00 ROSALBA SHARP Sep 16, 2017 16:20
[2017-09-16 20:00] VITALS: BP 119/62; RESP 19
[2017-09-16] MEDS: DOCUSATE SODIUM 100 MG CAP PO SCH (20:18)
--- NOTE | 2017-09-17 00:51 | PN ---
Date/Time of Note Date/Time of Note DATE: 09/17/17 TIME: 00:50 Assessment/Plan Lines/Catheters IV Catheter Type (from Nrsg): Saline Lock Francois in Place (from Nrsg): No Assessment/Plan Chief Complaint/Hosp Course IMPRESSION: Right loculated pleural effusion. R status post right VATS pleurodesis decortication Patient feels much better CT 170 cc Less shortness of breath Check chest x-ray Will continue chest tube suction Problems: Subjective 24 Hr Interval Summary Constitutional: improved Pain Control: mild Exam/Review of Systems Vital Signs Vitals Vital Signs Date Time Temp Pulse Resp B/P Pulse Ox O2 Delivery O2 Flow Rate FiO2 09/16/17 20:00 98.6 62 19 119/62 100 09/15/17 20:55 21 09/15/17 02:53 2.0 09/14/17 20:00 Nasal Cannula Intake and Output 09/16/17 09/16/17 09/17/17 15:00 23:00 07:00 Intake Total 50 ml 840 ml Output Total 170 ml 170 ml Balance -120 ml 670 ml Exam ENMT: mucosa pink and moist, nl external ears & nose, nl lips & teeth, nl nasal mucosa & septum Neck: non-tender, supple Respiratory: clear to auscultation, normal air movement Cardiovascular: nl pulses, regular rate and rhythm Results Result Diagram: 09/16/1742509/16/17425 DEVIKA MENA MD Sep 17, 2017 00:51
[2017-09-17 01:32] VITALS: BP 116/61; RESP 19
[2017-09-17] MEDS: ACCU-CHEK XX SCH (01:59)
[2017-09-17 05:12] LABS: ABNORMAL IP MESSAGE 1; BASOPHILS % 0.1 % (0.0-2.0); HEMATOCRIT 30.9 % (37.0-47.0); HEMOGLOBIN 9.5 g/dl (12.0-16.0); LYMPHOCYTES # 1.8 10^3/ul (0.8-2.9); LYMPHOCYTES % 15.4 % (15.0-51.0); MEAN CORPUSCULAR HEMOGLOBIN 23.9 pg (29.0-33.0); MEAN CORPUSCULAR HGB CONC 30.7 g/dl (32.0-37.0); MEAN CORPUSCULAR VOLUME 77.6 fl (82.0-101.0); MONOCYTE # 0.8 10^3/ul (0.3-0.9); MONOCYTES % 6.9 % (0.0-11.0); NEUTROPHIL # 8.4 10^3/ul (1.6-7.5); NEUTROPHILS % 73.1 % (39.0-77.0); PLATELET COUNT 189 10^3/UL (140-415); RED BLOOD COUNT 3.98 10^6/ul (4.20-5.40); RED CELL DISTRIBUTION WIDTH 23.2 % (11.5-14.5); WHITE BLOOD COUNT 11.4 10^3/ul (4.8-10.8)
[2017-09-17 05:20] LABS: POSITIVE DIFF @See below
[2017-09-17 05:33] LABS: ALBUMIN 2.5 g/dl (3.3-4.9); CALCIUM 8.6 mg/dl (8.4-10.2); CREATININE 0.5 mg/dl (0.44-1.00); MAGNESIUM 1.8 mg/dl (1.7-2.5); PHOSPHORUS 4.3 mg/dl (2.5-4.9); POTASSIUM 4.6 mmol/L (3.5-5.1)
[2017-09-17] MEDS: INSULIN ASPART [NOVOLOG] 3 ML PEN SC SCH ×4 (07:50→20:20)
[2017-09-17 07:55] VITALS: BP 125/68; RESP 20
[2017-09-17] MEDS: DEXAMETHASONE 4 MG TAB PO SCH ×2 (09:31→20:19)
[2017-09-17] MEDS: FAMOTIDINE 20 MG TAB PO SCH ×2 (09:31→20:19)
[2017-09-17] MEDS: NYSTATIN 30 GM POWDER BTL TOP SCH ×2 (09:32→20:21)
[2017-09-17] MEDS: TAMOXIFEN 10 MG TAB PO SCH (09:36)
[2017-09-17] MEDS: CEFTRIAXONE 1 GM/50 ML (PMX) 50 ML IVPB SCH (13:11)
--- NOTE | 2017-09-17 13:30 | PN ---
Date/Time of Note Date/Time of Note DATE: 09/17/17 TIME: 13:29 Assessment/Plan VTE Prophylaxis VTE Prophylaxis Intervention: contraindicated Lines/Catheters IV [facility]ter Type (from [facility] Peripheral IV Urinary Cath still in place: No Assessment/Plan Assessment/Plan 1. Empyema 2/2 staph aureus s/p VATS 09/12/17 - Patient doing well and chest tube still in place and draining serous fluid but output decreasing daily - repeat CXR shows increased sized right-sided pleural effusion. Rounded opacity within the right mid lung likely represents pleural fluid in the major fissure. Increased consolidation or atelectasis within the right lower lobe. - started on incentive spirometry - CT chest showed trace loculated pleural effusion with possible empyema in addition to malignant effusion. - CT surgery on board and appreciate consultation - ID on board and recommendations appreciated. continue on IV antibiotics, day 9 - Ultrasound-guided thoracentesis performed, cultures showing staph aureus 2. Dysfunctional Pleurx catheter - Pulmonology on board and consultation appreciated - Respiratory status stable at this time 3. Cellulitis, area around catheter- improving - ID on board and recommendations appreciated. Continue on antibiotics 4. Metastatic breast cancer, lung, liver, brain, s/p craniectomy - currently receiving radiation therapy and tamoxifen and Decadron - Heme/onc on board and consultation appreciated - Radiation as scheduled 5. Diabetes mellitus - Currently stable 6. Obesity - Counseled about diet and improving exercise routine when able 7. Disposition - Continue monitoring on med/surg while chest tube in place Subjective 24 Hr Interval Summary Free Text/Dictation patient doing well and chest tube still in place, draining serous fluid that is lightly tinged pink. No new complaints and no acute overnight events Exam/Review of Systems Vital Signs Vitals Vital Signs Date Time Temp Pulse Resp B/P Pulse Ox O2 Delivery O2 Flow Rate FiO2 09/17/17 07:55 98.0 53 20 125/68 100 09/15/17 20:55 21 09/15/17 02:53 2.0 09/14/17 20:00 Nasal Cannula Intake and Output 09/16/17 09/16/17 09/17/17 15:00 23:00 07:00 Intake Total 50 ml 840 ml 720 ml Output Total 170 ml 170 ml 160 ml Balance -120 ml 670 ml 560 ml Exam General: Patient awake and alert, no acute distress. Head: R side craniectomy site healing well. improving fluctuant edema right side Eyes: EOMI, pupils reactive to light Neck: Supple, nontender, midline Respiratory: diminished air entry with chest tube in place draining slightly pink tinged serous fluid Cardiovascular: regular rate, no obvious murmurs Gastrointestinal: non-tender to palpation, bowel sounds heard. Neurological: Moves all extremities spontaneously Results Result Diagram: 09/17/17 0424 09/17/17 0424 Results 24 hrs Laboratory Tests Test 09/16/17 18:07 09/16/17 20:16 09/17/17 01:49 09/17/17 04:24 Bedside Glucose 142 223 H 176 White Blood Count 11.4 H Red Blood Count 3.98 L Hemoglobin 9.5 L Hematocrit 30.9 L Mean Corpuscular Volume 77.6 L Mean Corpuscular Hemoglobin 23.9 L Mean Corpuscular Hemoglobin Concent 30.7 L Red Cell Distribution Width 23.2 H Platelet Count 189 Mean Platelet Volume 9.0 Neutrophils % 73.1 Lymphocytes % 15.4 Monocytes % 6.9 Eosinophils % 0.0 Basophils % 0.1 Nucleated Red Blood Cells % 0.0 Neutrophils # 8.4 H Lymphocytes # 1.8 Monocytes # 0.8 Eosinophils # 0.0 Basophils # 0.0 Nucleated Red Blood Cells # 0.0 Sodium Level 137 Potassium Level 4.6 Chloride Level 103 Carbon Dioxide Level 28 Anion Gap 11 Blood Urea Nitrogen 19 Creatinine 0.50 Glucose Level 149 Calcium Level 8.6 Phosphorus Level 4.3 Magnesium Level 1.8 Albumin 2.5 L Test 09/17/17 09:13 09/17/17 12:19 Bedside Glucose 125 164 Medications Medications Current Medications Dexamethasone (Decadron) 4 mg BID PO Last administered on 09/17/17 09:31; Admin Dose 4 MG; Start 09/05/17 at 21:00 Docusate Sodium (Colace) 200 mg QHS PO Last administered on 09/16/17 20:18; Admin Dose 200 MG; Start 09/05/17 at 21:00 Ondansetron HCl (Zofran Inj) 4 mg Q6H PRN IV NAUSEA AND/OR VOMITING; Start at 21:00 Acetaminophen (Tylenol Tab) 650 mg Q6H PRN PO PAIN LEVEL 1-3 OR FEVER Last administered on 09/13/17 07:13; Admin Dose 650 MG; Start 09/05/17 at 21:00 Oxycodone/ Acetaminophen (Percocet (5/ 325)) 1 tab Q6H PRN PO MODERATE PAIN LEVEL 4-6; Start 09/05/17 at 21:00 Morphine Sulfate (morphine) 2 mg Q4H PRN IV SEVERE PAIN LEVEL 7-10 Last administered on 09/13/17 02:47; Admin Dose 2 MG; Start 09/05/17 at 21:00 Docusate Sodium (Colace) 100 mg Q12H PRN PO CONSTIPATION; Start 09/05/17 at 21 :00 Magnesium Hydroxide (Milk Of Mag) 30 ml DAILY PRN PO CONSTIPATION; Start 09/05 at 21:00 Famotidine (Pepcid) 20 mg Q12 PO Last administered on 09/17/17 09:31; Admin Dose 20 MG; Start 09/05/17 at 21:00 Albuterol (Proventil 0.083% (Neb)) 2.5 mg Q2 PRN HHN SHORTNESS OF BREATH; Start 09/05/17 at 21:00 Miscellaneous Information 1 ea NOTE XX ; Start 09/05/17 at 21:30 Glucose (Glutose) 15 gm Q15M PRN PO DECREASED GLUCOSE; Start 09/05/17 at 21:30 Glucose (Glutose) 22.5 gm Q15M PRN PO DECREASED GLUCOSE; Start 09/05/17 at 21: 30 Dextrose (D50w Syringe) 25 ml Q15M PRN IV DECREASED GLUCOSE; Start 09/05/17 at 21:30 Dextrose (D50w Syringe) 50 ml Q15M PRN IV DECREASED GLUCOSE; Start 09/05/17 at 21:30 Glucagon (Glucagen) 1 mg Q15M PRN IM DECREASED GLUCOSE; Start 09/05/17 at 21: 30 Glucose (Glutose) 15 gm Q15M PRN BUCCAL DECREASED GLUCOSE; Start 09/05/17 at 21:30 Nystatin (Nystatin Powder) 1 applic BID TOP Last administered on 09/17/17 09: 32; Admin Dose 1 APPLIC; Start 09/06/17 at 09:00 Tamoxifen Citrate 20 mg 20 mg DAILY PO Last administered on 09/17/17 09:36; Admin Dose 20 MG; Start 09/06/17 at 13:00 Ceftriaxone Sodium (Rocephin) 50 ml @ 100 mls/hr Q24H IVPB Last administered on 09/17/17t 13:11; Admin Dose 100 MLS/HR; Start 09/08/17 at 14:00 Diagnostic Test (Pha) (Accu-Chek) 1 02 XX ; Start 09/16/17 at 02:00 ZEUS TABOR MD Sep 17, 2017 13:29
--- NOTE | 2017-09-17 16:25 | CONS ---
Date/Time of Note Date/Time of Note DATE: 09/17/17 TIME: 16:24 Consult Date/Type/Reason Admit Date/Time Sep 05, 2017 at 18:29 Initial Consult Date 09/07/17 Type of Consultation: Pulm Ordering Provider: MINDY NEGRON Subjective No events. Objective Vital Signs Date Time Temp Pulse Resp B/P Pulse Ox O2 Delivery O2 Flow Rate FiO2 09/17/17 07:55 98.0 53 20 125/68 100 09/15/17 20:55 21 09/15/17 02:53 2.0 09/14/17 20:00 Nasal Cannula Intake and Output 09/16/17 09/16/17 09/17/17 15:00 23:00 07:00 Intake Total 50 ml 840 ml 720 ml Output Total 170 ml 170 ml 160 ml Balance -120 ml 670 ml 560 ml Exam HEENT: Neck supple; no JVD; no LAD CVS: RRR, S1 and S2 CHEST: Decreased BS right ABD: Soft, NT, + BS EXT: No c/c/e Results/Medications Result Diagram: 09/17/17 0424 09/17/17 0424 Results 24 hrs Laboratory Tests Test 09/16/17 18:07 09/16/17 20:16 09/17/17 01:49 09/17/17 04:24 Bedside Glucose 142 223 H 176 White Blood Count 11.4 H Red Blood Count 3.98 L Hemoglobin 9.5 L Hematocrit 30.9 L Mean Corpuscular Volume 77.6 L Mean Corpuscular Hemoglobin 23.9 L Mean Corpuscular Hemoglobin Concent 30.7 L Red Cell Distribution Width 23.2 H Platelet Count 189 Mean Platelet Volume 9.0 Neutrophils % 73.1 Lymphocytes % 15.4 Monocytes % 6.9 Eosinophils % 0.0 Basophils % 0.1 Nucleated Red Blood Cells % 0.0 Neutrophils # 8.4 H Lymphocytes # 1.8 Monocytes # 0.8 Eosinophils # 0.0 Basophils # 0.0 Nucleated Red Blood Cells # 0.0 Sodium Level 137 Potassium Level 4.6 Chloride Level 103 Carbon Dioxide Level 28 Anion Gap 11 Blood Urea Nitrogen 19 Creatinine 0.50 Glucose Level 149 Calcium Level 8.6 Phosphorus Level 4.3 Magnesium Level 1.8 Albumin 2.5 L Test 09/17/17 09:13 09/17/17 12:19 Bedside Glucose 125 164 Medications Current Medications Dexamethasone (Decadron) 4 mg BID PO Last administered on 09/17/17 09:31; Admin Dose 4 MG; Start 09/05/17 at 21:00 Docusate Sodium (Colace) 200 mg QHS PO Last administered on 09/16/17 20:18; Admin Dose 200 MG; Start 09/05/17 at 21:00 Ondansetron HCl (Zofran Inj) 4 mg Q6H PRN IV NAUSEA AND/OR VOMITING; Start at 21:00 Acetaminophen (Tylenol Tab) 650 mg Q6H PRN PO PAIN LEVEL 1-3 OR FEVER Last administered on 09/13/17 07:13; Admin Dose 650 MG; Start 09/05/17 at 21:00 Oxycodone/ Acetaminophen (Percocet (5/ 325)) 1 tab Q6H PRN PO MODERATE PAIN LEVEL 4-6; Start 09/05/17 at 21:00 Morphine Sulfate (morphine) 2 mg Q4H PRN IV SEVERE PAIN LEVEL 7-10 Last administered on 09/13/17 02:47; Admin Dose 2 MG; Start 09/05/17 at 21:00 Docusate Sodium (Colace) 100 mg Q12H PRN PO CONSTIPATION; Start 09/05/17 at 21 :00 Magnesium Hydroxide (Milk Of Mag) 30 ml DAILY PRN PO CONSTIPATION; Start 09/05 at 21:00 Famotidine (Pepcid) 20 mg Q12 PO Last administered on 09/17/17 09:31; Admin Dose 20 MG; Start 09/05/17 at 21:00 Albuterol (Proventil 0.083% (Neb)) 2.5 mg Q2 PRN HHN SHORTNESS OF BREATH; Start 09/05/17 at 21:00 Miscellaneous Information 1 ea NOTE XX ; Start 09/05/17 at 21:30 Glucose (Glutose) 15 gm Q15M PRN PO DECREASED GLUCOSE; Start 09/05/17 at 21:30 Glucose (Glutose) 22.5 gm Q15M PRN PO DECREASED GLUCOSE; Start 09/05/17 at 21: 30 Dextrose (D50w Syringe) 25 ml Q15M PRN IV DECREASED GLUCOSE; Start 09/05/17 at 21:30 Dextrose (D50w Syringe) 50 ml Q15M PRN IV DECREASED GLUCOSE; Start 09/05/17 at 21:30 Glucagon (Glucagen) 1 mg Q15M PRN IM DECREASED GLUCOSE; Start 09/05/17 at 21: 30 Glucose (Glutose) 15 gm Q15M PRN BUCCAL DECREASED GLUCOSE; Start 09/05/17 at 21:30 Nystatin (Nystatin Powder) 1 applic BID TOP Last administered on 09/17/17 09: 32; Admin Dose 1 APPLIC; Start 09/06/17 at 09:00 Tamoxifen Citrate 20 mg 20 mg DAILY PO Last administered on 09/17/17 09:36; Admin Dose 20 MG; Start 09/06/17 at 13:00 Ceftriaxone Sodium (Rocephin) 50 ml @ 100 mls/hr Q24H IVPB Last administered on 09/17/17 13:11; Admin Dose 100 MLS/HR; Start 09/08/17 at 14:00 Diagnostic Test (Pha) (Accu-Chek) 1 ea 02 XX ; Start 09/16/17 at 02:00 Assessment/Plan Additional Assessment/Plan IMP: 1. Metastatic breast cancer with recurrent right pleural effusion. 2. Loculated pleural effusion c/w empyema status post decortication and pleurodesis. 3. SADDLE STITCHER metastasis currently receiving steroids and radiation therapy RECS: 1. CT to suction 2. Abx 3. ICS and pain control ARELY KAYE MD Sep 17, 2017 16:25
[2017-09-17 16:47] VITALS: BP 140/79; RESP 20
--- NOTE | 2017-09-17 16:57 | CONS ---
Date/Time of Note Date/Time of Note DATE: 09/17/17 TIME: 16:51 Assessment/Plan Assessment/Plan Chief Complaint/Hosp Course ID PROGRESS NOTE CURRENT ABX: TOTAL ABX DAY # 13 => Ceftriaxone 24H INTERVAL SUMMARY * Sitting up on edge of bed w/CT intact, no complaints, denies pain, no dyspnea on room air, no fevers * Morbid obesity + calm, polite, good historian * POD #5=> s/p VATS 09/12/17 Right malignant pleural effusion. Physical Exam Physical Exam Constitutional: VSS, NAD, morbid obese, A/A/O x4, afebrile HEENT: Unremarkable Neck: Supple, full ROM Respiratory: Equal chest rise bilaterally, without dyspnea on observation, room air Cardiovascular: nl pulses, regular rate and rhythm Gastrointestinal: Soft, large pannus Extremities: Warm, no c/c/e ID ASSESSMENT 47 yo morbid obese F admit with: 1. Systemic inflammatory response syndrome. 2. Loculated right malignant pleural effusion.pleural effusion, possible empyema * s/p Thora w/ Pleural fluid culture grew oxacillin-sensitive Staphylococcus aureus * POD 09/12/17 -> s/p VATS Right malignant pleural effusion. 3. Diabetes. 4. Metastatic breast carcinoma. 5. History of craniectomy from brain metastasis. (- )MRSA Nares INVASIVES: PIV ABX ALLERGIES: PCN CURRENT ABX: TOTAL ABX DAY # 13 => Ceftriaxone ID RECOMMENDATIONS 1. Continue current ABX - follow CT surgeon recs . Problems: Consultation Date/Type/Reason Admit Date/Time Sep 05, 2017 at 18:29 Initial Consult Date 09/07/17 Type of Consultation: ID Referring Provider: MINDY NEGRON Exam/Review of Systems Vital Signs Vitals Vital Signs Date Time Temp Pulse Resp B/P Pulse Ox O2 Delivery O2 Flow Rate FiO2 09/17/17 16:47 97.5 69 20 140/79 100 09/15/17 20:55 21 09/15/17 02:53 2.0 09/14/17 20:00 Nasal Cannula Intake and Output 09/16/17 09/16/17 09/17/17 15:00 23:00 07:00 Intake Total 50 ml 840 ml 720 ml Output Total 170 ml 170 ml 160 ml Balance -120 ml 670 ml 560 ml Results Result Diagram: 09/17/17 0424 09/17/17 0424 Results 24 hrs Laboratory Tests Test 09/16/17 18:07 09/16/17 20:16 09/17/17 01:49 09/17/17 04:24 Bedside Glucose 142 223 H 176 White Blood Count 11.4 H Red Blood Count 3.98 L Hemoglobin 9.5 L Hematocrit 30.9 L Mean Corpuscular Volume 77.6 L Mean Corpuscular Hemoglobin 23.9 L Mean Corpuscular Hemoglobin Concent 30.7 L Red Cell Distribution Width 23.2 H Platelet Count 189 Mean Platelet Volume 9.0 Neutrophils % 73.1 Lymphocytes % 15.4 Monocytes % 6.9 Eosinophils % 0.0 Basophils % 0.1 Nucleated Red Blood Cells % 0.0 Neutrophils # 8.4 H Lymphocytes # 1.8 Monocytes # 0.8 Eosinophils # 0.0 Basophils # 0.0 Nucleated Red Blood Cells # 0.0 Sodium Level 137 Potassium Level 4.6 Chloride Level 103 Carbon Dioxide Level 28 Anion Gap 11 Blood Urea Nitrogen 19 Creatinine 0.50 Glucose Level 149 Calcium Level 8.6 Phosphorus Level 4.3 Magnesium Level 1.8 Albumin 2.5 L Test 09/17/17 09:13 09/17/17 12:19 Bedside Glucose 125 164 Medications Medications Current Medications Dexamethasone (Decadron) 4 mg BID PO Last administered on 09/17/17 09:31; Admin Dose 4 MG; Start 09/05/17 at 21:00 Docusate Sodium (Colace) 200 mg QHS PO Last administered on 09/16/17 20:18; Admin Dose 200 MG; Start 09/05/17 at 21:00 Ondansetron HCl (Zofran Inj) 4 mg Q6H PRN IV NAUSEA AND/OR VOMITING; Start at 21:00 Acetaminophen (Tylenol Tab) 650 mg Q6H PRN PO PAIN LEVEL 1-3 OR FEVER Last administered on 09/13/17 07:13; Admin Dose 650 MG; Start 09/05/17 at 21:00 Oxycodone/ Acetaminophen (Percocet (5/ 325)) 1 tab Q6H PRN PO MODERATE PAIN LEVEL 4-6; Start 09/05/17 at 21:00 Morphine Sulfate (morphine) 2 mg Q4H PRN IV SEVERE PAIN LEVEL 7-10 Last administered on 09/13/17 02:47; Admin Dose 2 MG; Start 09/05/17 at 21:00 Docusate Sodium (Colace) 100 mg Q12H PRN PO CONSTIPATION; Start 09/05/17 at 21 :00 Magnesium Hydroxide (Milk Of Mag) 30 ml DAILY PRN PO CONSTIPATION; Start 09/05 at 21:00 Famotidine (Pepcid) 20 mg Q12 PO Last administered on 09/17/17 09:31; Admin Dose 20 MG; Start 09/05/17 at 21:00 Albuterol (Proventil 0.083% (Neb)) 2.5 mg Q2 PRN HHN SHORTNESS OF BREATH; Start 09/05/17 at 21:00 Miscellaneous Information 1 ea NOTE XX ; Start 09/05/17 at 21:30 Glucose (Glutose) 15 gm Q15M PRN PO DECREASED GLUCOSE; Start 09/05/17 at 21:30 Glucose (Glutose) 22.5 gm Q15M PRN PO DECREASED GLUCOSE; Start 09/05/17 at 21: 30 Dextrose (D50w Syringe) 25 ml Q15M PRN IV DECREASED GLUCOSE; Start 09/05/17 at 21:30 Dextrose (D50w Syringe) 50 ml Q15M PRN IV DECREASED GLUCOSE; Start 09/05/17 at 21:30 Glucagon (Glucagen) 1 mg Q15M PRN IM DECREASED GLUCOSE; Start 09/05/17 at 21: 30 Glucose (Glutose) 15 gm Q15M PRN BUCCAL DECREASED GLUCOSE; Start 09/05/17 at 21:30 Nystatin (Nystatin Powder) 1 applic BID TOP Last administered on 09/17/17 09: 32; Admin Dose 1 APPLIC; Start 09/06/17 at 09:00 Tamoxifen Citrate 20 mg 20 mg DAILY PO Last administered on 09/17/17 09:36; Admin Dose 20 MG; Start 09/06/17 at 13:00 Ceftriaxone Sodium (Rocephin) 50 ml @ 100 mls/hr Q24H IVPB Last administered on 09/17/17 13:11; Admin Dose 100 MLS/HR; Start 09/08/17 at 14:00 Diagnostic Test (Pha) (Accu-Chek) 1 ea 02 XX ; Start 09/16/17 at 02:00 VIKY NARVAEZ NP Sep 17, 2017 16:57
[2017-09-17 19:32] VITALS: BP 143/77; RESP 16
[2017-09-17] MEDS: DOCUSATE SODIUM 100 MG CAP PO SCH (20:20)
[2017-09-18] MEDS: ACCU-CHEK XX SCH (00:23)
[2017-09-18 01:49] VITALS: BP 138/71; RESP 16
[2017-09-18 05:14] LABS: ABNORMAL IP MESSAGE 1; BASOPHILS % 0.1 % (0.0-2.0); HEMATOCRIT 32.6 % (37.0-47.0); HEMOGLOBIN 9.9 g/dl (12.0-16.0); MEAN CORPUSCULAR HEMOGLOBIN 23.5 pg (29.0-33.0); MEAN CORPUSCULAR HGB CONC 30.4 g/dl (32.0-37.0); MEAN CORPUSCULAR VOLUME 77.3 fl (82.0-101.0); MEAN PLATELET VOLUME 9.1 fl (7.4-10.4); MONOCYTE # 0.8 10^3/ul (0.3-0.9); MONOCYTES % 6.2 % (0.0-11.0); NEUTROPHIL # 9.7 10^3/ul (1.6-7.5); NEUTROPHILS % 74.2 % (39.0-77.0); PLATELET COUNT 202 10^3/UL (140-415); RED BLOOD COUNT 4.22 10^6/ul (4.20-5.40); RED CELL DISTRIBUTION WIDTH 23.3 % (11.5-14.5)
[2017-09-18 05:26] LABS: POSITIVE DIFF @See below
[2017-09-18 05:41] LABS: ALBUMIN 2.7 g/dl (3.3-4.9); CALCIUM 8.5 mg/dl (8.4-10.2); CREATININE 0.43 mg/dl (0.44-1.00); MAGNESIUM 1.7 mg/dl (1.7-2.5); POTASSIUM 4.4 mmol/L (3.5-5.1)
[2017-09-18] MEDS: INSULIN ASPART [NOVOLOG] 3 ML PEN SC SCH ×4 (07:50→21:00)
[2017-09-18 08:30] VITALS: BP 121/68; RESP 18
[2017-09-18] MEDS: DEXAMETHASONE 4 MG TAB PO SCH ×2 (09:09→21:00)
[2017-09-18] MEDS: FAMOTIDINE 20 MG TAB PO SCH ×2 (09:09→21:00)
[2017-09-18] MEDS: NYSTATIN 30 GM POWDER BTL TOP SCH ×2 (09:10→21:00)
[2017-09-18] MEDS: TAMOXIFEN 10 MG TAB PO SCH (09:20)
--- NOTE | 2017-09-18 09:45 | CONS ---
Date/Time of Note Date/Time of Note DATE: 09/18/17 TIME: 09:43 Assessment/Plan Assessment/Plan Chief Complaint/Hosp Course #Her2+/ER+/ID+ metastatic breast ca -pt is non compliant and when she receives therapy, she is quite responsive to therapy -therefore at this time, although she has terminal disease, there are still many more treatment options which she could benefit from -given her Brain mets, I would consider a combination of Xeloda and Lapatinib which can penetrate the blood brain barrier. this will have to start once radiation has completed -can restart Tamoxifen as well #Pleural Effusion with superimposed infection -pt is s/p decortication and pleurodesis -chest tube with considerable serosanguineous drainage -continue antibiotics given + Staph superinfection infection -appreciate pulmonary recs #Brain Mets -pt is s/p resection -pt needs to continue with WBRT with Dr. Ybarra. to proceed with radiation today Problems: Consultation Date/Type/Reason Admit Date/Time Sep 05, 2017 at 18:29 Initial Consult Date 09/07/17 Type of Consultation: Hematology Reason for Consultation metastatic breast cancer Referring Provider: MINDY NEGRON 24 HR Interval Summary Free Text/Dictation chest tube is putting out less drainage Exam/Review of Systems Vital Signs Vitals Vital Signs Date Time Temp Pulse Resp B/P Pulse Ox O2 Delivery O2 Flow Rate FiO2 09/18/17 01:49 98.3 60 16 138/71 97 09/15/17 20:55 21 09/15/17 02:53 2.0 09/14/17 20:00 Nasal Cannula Intake and Output 09/17/17 09/17/17 09/18/17 15:00 23:00 07:00 Intake Total 50 ml 900 ml 850 ml Output Total 200 ml Balance 50 ml 700 ml 850 ml Exam Constitutional: alert, oriented Psych: no complaints Head: normocephalic Eyes: nl conjunctiva ENMT: nl external ears & nose Neck: non-tender, supple Respiratory: other (chest tube in place) Cardiovascular: regular rate and rhythm Gastrointestinal: soft Results Result Diagram: 09/18/1744109/18/17441 Results 24 hrs Laboratory Tests Test 09/17/17 12:19 09/17/17 17:53 09/17/17 20:17 09/18/17 04:42 Bedside Glucose 164 124 155 White Blood Count 13.0 H Red Blood Count 4.22 Hemoglobin 9.9 L Hematocrit 32.6 L Mean Corpuscular Volume 77.3 L Mean Corpuscular Hemoglobin 23.5 L Mean Corpuscular Hemoglobin Concent 30.4 L Red Cell Distribution Width 23.3 H Platelet Count 202 Mean Platelet Volume 9.1 Neutrophils % 74.2 Lymphocytes % 15.0 Monocytes % 6.2 Eosinophils % 0.0 Basophils % 0.1 Nucleated Red Blood Cells % 0.0 Neutrophils # 9.7 H Lymphocytes # 2.0 Monocytes # 0.8 Eosinophils # 0.0 Basophils # 0.0 Nucleated Red Blood Cells # 0.0 Sodium Level 137 Potassium Level 4.4 Chloride Level 104 Carbon Dioxide Level 27 Anion Gap 10 Blood Urea Nitrogen 17 Creatinine 0.43 L Glucose Level 124 Calcium Level 8.5 Phosphorus Level 4.0 Magnesium Level 1.7 Albumin 2.7 L Test 09/18/17 08:42 Bedside Glucose 80 Medications Medications Current Medications Dexamethasone (Decadron) 4 mg BID PO Last administered on 09/18/17 09:09; Admin Dose 4 MG; Start 09/05/17 at 21:00 Docusate Sodium (Colace) 200 mg QHS PO Last administered on 09/16/17 20:18; Admin Dose 200 MG; Start 09/05/17 at 21:00 Ondansetron HCl (Zofran Inj) 4 mg Q6H PRN IV NAUSEA AND/OR VOMITING; Start at 21:00 Acetaminophen (Tylenol Tab) 650 mg Q6H PRN PO PAIN LEVEL 1-3 OR FEVER Last administered on 09/13/17 07:13; Admin Dose 650 MG; Start 09/05/17 at 21:00 Oxycodone/ Acetaminophen (Percocet (5/ 325)) 1 tab Q6H PRN PO MODERATE PAIN LEVEL 4-6; Start 09/05/17 at 21:00 Morphine Sulfate (morphine) 2 mg Q4H PRN IV SEVERE PAIN LEVEL 7-10 Last administered on 09/13/17 02:47; Admin Dose 2 MG; Start 09/05/17 at 21:00 Docusate Sodium (Colace) 100 mg Q12H PRN PO CONSTIPATION; Start 09/05/17 at 21 :00 Magnesium Hydroxide (Milk Of Mag) 30 ml DAILY PRN PO CONSTIPATION; Start 09/05 at 21:00 Famotidine (Pepcid) 20 mg Q12 PO Last administered on 09/18/17 09:09; Admin Dose 20 MG; Start 09/05/17 at 21:00 Albuterol (Proventil 0.083% (Neb)) 2.5 mg Q2 PRN HHN SHORTNESS OF BREATH; Start 09/05/17 at 21:00 Miscellaneous Information 1 ea NOTE XX ; Start 09/05/17 at 21:30 Glucose (Glutose) 15 gm Q15M PRN PO DECREASED GLUCOSE; Start 09/05/17 at 21:30 Glucose (Glutose) 22.5 gm Q15M PRN PO DECREASED GLUCOSE; Start 09/05/17 at 21: 30 Dextrose (D50w Syringe) 25 ml Q15M PRN IV DECREASED GLUCOSE; Start 09/05/17 at 21:30 Dextrose (D50w Syringe) 50 ml Q15M PRN IV DECREASED GLUCOSE; Start 09/05/17 at 21:30 Glucagon (Glucagen) 1 mg Q15M PRN IM DECREASED GLUCOSE; Start 09/05/17 at 21: 30 Glucose (Glutose) 15 gm Q15M PRN BUCCAL DECREASED GLUCOSE; Start 09/05/17 at 21:30 Nystatin (Nystatin Powder) 1 applic BID TOP Last administered on 09/18/17 09: 10; Admin Dose 1 APPLIC; Start 09/06/17 at 09:00 Tamoxifen Citrate 20 mg 20 mg DAILY PO Last administered on 09/18/17 09:20; Admin Dose 20 MG; Start 09/06/17 at 13:00 Ceftriaxone Sodium (Rocephin) 50 ml @ 100 mls/hr Q24H IVPB Last administered on 09/17/17 13:11; Admin Dose 100 MLS/HR; Start 09/08/17 at 14:00 Diagnostic Test (Pha) (Accu-Chek) 1 ea 02 XX ; Start 09/16/17 at 02:00 ANTWON DYE M.D. Sep 18, 2017 09:45
--- NOTE | 2017-09-18 15:01 | PN ---
Date/Time of Note Date/Time of Note DATE: 09/18/17 TIME: 15:00 Assessment/Plan VTE Prophylaxis VTE Prophylaxis Intervention: ambulation Lines/Catheters IV Catheter Type (from [facility]): Peripheral IV Urinary Cath still in place: No Assessment/Plan Chief Complaint/Hosp Course Patient is a 39-year-old female with a past medical history of metastatic breast cancer with metastases to the liver and brain who presents from [facility] for malfunctioning Pleurx catheter. 1. Empyema 2/2 staph aureus s/p VATS 09/12/17 - Patient doing well and chest tube still in place and draining serous fluid but output decreasing daily - repeat CXR shows increased sized right-sided pleural effusion. Rounded opacity within the right mid lung likely represents pleural fluid in the major fissure. Increased consolidation or atelectasis within the right lower lobe. - started on incentive spirometry - CT chest showed trace loculated pleural effusion with possible empyema in addition to malignant effusion. - CT surgery on board and appreciate consultation - ID on board and recommendations appreciated. continue on IV antibiotics - Ultrasound-guided thoracentesis performed, cultures showing staph aureus 2. Dysfunctional Pleurx catheter - Pulmonology on board and consultation appreciated - Respiratory status stable at this time 3. Cellulitis, area around catheter- improving - ID on board and recommendations appreciated. Continue on antibiotics 4. Metastatic breast cancer, lung, liver, brain, s/p craniectomy - currently receiving radiation therapy and tamoxifen and Decadron - Heme/onc on board and consultation appreciated - Radiation as scheduled 5. Diabetes mellitus - Currently stable 6. Obesity - Counseled about diet and improving exercise routine when able 7. Disposition - Continue monitoring on med/surg while chest tube in place Problems: Subjective 24 Hr Interval Summary Free Text/Dictation returned from radiation therapy. tolerated well. Exam/Review of Systems Vital Signs Vitals Vital Signs Date Time Temp Pulse Resp B/P Pulse Ox O2 Delivery O2 Flow Rate FiO2 09/18/17 08:30 98.9 75 18 121/68 98 09/15/17 20:55 21 09/15/17 02:53 2.0 09/14/17 20:00 Nasal Cannula Intake and Output 09/17/17 09/17/17 09/18/17 15:00 23:00 07:00 Intake Total 50 ml 900 ml 850 ml Output Total 200 ml Balance 50 ml 700 ml 850 ml Exam General: Patient awake and alert, no acute distress. Head: R side craniectomy site healing well. improving fluctuant edema right side Eyes: EOMI, pupils reactive to light Neck: Supple, nontender, midline Respiratory: diminished air entry with chest tube in place draining slightly pink tinged serous fluid Cardiovascular: regular rate, no obvious murmurs Gastrointestinal: non-tender to palpation, bowel sounds heard. Neurological: Moves all extremities spontaneously Results Result Diagram: 09/18/17 0442 09/18/17 0442 Results 24 hrs Laboratory Tests Test 09/17/17 17:53 09/17/17 20:17 09/18/17 04:42 09/18/17 08:42 Bedside Glucose 124 155 80 White Blood Count 13.0 H Red Blood Count 4.22 Hemoglobin 9.9 L Hematocrit 32.6 L Mean Corpuscular Volume 77.3 L Mean Corpuscular Hemoglobin 23.5 L Mean Corpuscular Hemoglobin Concent 30.4 L Red Cell Distribution Width 23.3 H Platelet Count 202 Mean Platelet Volume 9.1 Neutrophils % 74.2 Lymphocytes % 15.0 Monocytes % 6.2 Eosinophils % 0.0 Basophils % 0.1 Nucleated Red Blood Cells % 0.0 Neutrophils # 9.7 H Lymphocytes # 2.0 Monocytes # 0.8 Eosinophils # 0.0 Basophils # 0.0 Nucleated Red Blood Cells # 0.0 Sodium Level 137 Potassium Level 4.4 Chloride Level 104 Carbon Dioxide Level 27 Anion Gap 10 Blood Urea Nitrogen 17 Creatinine 0.43 L Glucose Level 124 Calcium Level 8.5 Phosphorus Level 4.0 Magnesium Level 1.7 Albumin 2.7 L Test 09/18/17 13:39 Bedside Glucose 102 Medications Medications Current Medications Dexamethasone (Decadron) 4 mg BID PO Last administered on 09/18/17 09:09; Admin Dose 4 MG; Start 09/05/17 at 21:00 Docusate Sodium (Colace) 200 mg QHS PO Last administered on 09/16/17 20:18; Admin Dose 200 MG; Start 09/05/17 at 21:00 Ondansetron HCl (Zofran Inj) 4 mg Q6H PRN IV NAUSEA AND/OR VOMITING; Start at 21:00 Acetaminophen (Tylenol Tab) 650 mg Q6H PRN PO PAIN LEVEL 1-3 OR FEVER Last administered on 09/13/17 07:13; Admin Dose 650 MG; Start 09/05/17 at 21:00 Oxycodone/ Acetaminophen (Percocet (5/ 325)) 1 tab Q6H PRN PO MODERATE PAIN LEVEL 4-6; Start 09/05/17 at 21:00 Morphine Sulfate (morphine) 2 mg Q4H PRN IV SEVERE PAIN LEVEL 7-10 Last administered on 09/13/17 02:47; Admin Dose 2 MG; Start 09/05/17 at 21:00 Docusate Sodium (Colace) 100 mg Q12H PRN PO CONSTIPATION; Start 09/05/17 at 21 :00 Magnesium Hydroxide (Milk Of Mag) 30 ml DAILY PRN PO CONSTIPATION; Start 09/05 at 21:00 Famotidine (Pepcid) 20 mg Q12 PO Last administered on 09/18/17 09:09; Admin Dose 20 MG; Start 09/05/17 at 21:00 Albuterol (Proventil 0.083% (Neb)) 2.5 mg Q2 PRN HHN SHORTNESS OF BREATH; Start 09/05/17 at 21:00 Miscellaneous Information 1 ea NOTE XX ; Start 09/05/17 at 21:30 Glucose (Glutose) 15 gm Q15M PRN PO DECREASED GLUCOSE; Start 09/05/17 at 21:30 Glucose (Glutose) 22.5 gm Q15M PRN PO DECREASED GLUCOSE; Start 09/05/17 at 21: 30 Dextrose (D50w Syringe) 25 ml Q15M PRN IV DECREASED GLUCOSE; Start 09/05/17 at 21:30 Dextrose (D50w Syringe) 50 ml Q15M PRN IV DECREASED GLUCOSE; Start 09/05/17 at 21:30 Glucagon (Glucagen) 1 mg Q15M PRN IM DECREASED GLUCOSE; Start 09/05/17 at 21: 30 Glucose (Glutose) 15 gm Q15M PRN BUCCAL DECREASED GLUCOSE; Start 09/05/17 at 21:30 Nystatin (Nystatin Powder) 1 applic BID TOP Last administered on 09/18/17 09: 10; Admin Dose 1 APPLIC; Start 09/06/17 at 09:00 Tamoxifen Citrate 20 mg 20 mg DAILY PO Last administered on 09/18/17 09:20; Admin Dose 20 MG; Start 09/06/17 at 13:00 Ceftriaxone Sodium (Rocephin) 50 ml @ 100 mls/hr Q24H IVPB Last administered on 09/17/17t 13:11; Admin Dose 100 MLS/HR; Start 09/08/17 at 14:00 Diagnostic Test (Pha) (Accu-Chek) 1 02 XX ; Start 09/16/17 at 02:00 JUAN MOTLEY Sep 18, 2017 15:01
--- NOTE | 2017-09-18 15:15 | PN ---
Date/Time of Note Date/Time of Note DATE: 09/18/17 TIME: 15:14 Assessment/Plan Lines/Catheters IV Catheter Type (from Nrsg): Peripheral IV Francois in Place (from Nrsg): No Assessment/Plan Chief Complaint/Hosp Course IMPRESSION: Right loculated pleural effusion. R status post right VATS pleurodesis decortication Patient feels much better CT 100 cc Less shortness of breath Check chest x-ray Will continue chest tube suction Problems: Subjective 24 Hr Interval Summary Constitutional: improved Pain Control: mild Exam/Review of Systems Vital Signs Vitals Vital Signs Date Time Temp Pulse Resp B/P Pulse Ox O2 Delivery O2 Flow Rate FiO2 09/18/17 08:30 98.9 75 18 121/68 98 09/15/17 20:55 21 09/15/17 02:53 2.0 09/14/17 20:00 Nasal Cannula Intake and Output 09/17/17 09/17/17 09/18/17 15:00 23:00 07:00 Intake Total 50 ml 900 ml 850 ml Output Total 200 ml Balance 50 ml 700 ml 850 ml Exam ENMT: mucosa pink and moist, nl external ears & nose, nl lips & teeth, nl nasal mucosa & septum Neck: non-tender, supple Respiratory: clear to auscultation, normal air movement Cardiovascular: nl pulses, regular rate and rhythm Results Result Diagram: 09/18/1744109/18/17441 DEVIKA MENA MD Sep 18, 2017 15:15
[2017-09-18] MEDS: CEFTRIAXONE 1 GM/50 ML (PMX) 50 ML IVPB SCH (15:28)
--- NOTE | 2017-09-18 16:11 | CONS ---
Date/Time of Note Date/Time of Note DATE: 09/18/17 TIME: 16:10 Consult Date/Type/Reason Admit Date/Time Sep 05, 2017 at 18:29 Initial Consult Date 09/06/17 Type of Consultation: Pulmonary Ordering Provider: MINDY NEGRON Subjective No new events comfortable this morning. Some pain around chest tube insertion site. Objective Vital Signs Date Time Temp Pulse Resp B/P Pulse Ox O2 Delivery O2 Flow Rate FiO2 09/18/17 08:30 98.9 75 18 121/68 98 09/15/17 20:55 21 09/15/17 02:53 2.0 09/14/17 20:00 Nasal Cannula Intake and Output 09/17/17 09/17/17 09/18/17 15:00 23:00 07:00 Intake Total 50 ml 900 ml 850 ml Output Total 200 ml Balance 50 ml 700 ml 850 ml Exam HEENT: Neck supple; no JVD; no LAD CVS: RRR, S1 and S2 CHEST: Decreased BS right ABD: Soft, NT, + BS EXT: No c/c/e Results/Medications Result Diagram: 09/18/172 09/18/17 0442 Results 24 hrs Laboratory Tests Test 09/17/17 17:53 09/17/17 20:17 09/18/17 04:42 09/18/17 08:42 Bedside Glucose 124 155 80 White Blood Count 13.0 H Red Blood Count 4.22 Hemoglobin 9.9 L Hematocrit 32.6 L Mean Corpuscular Volume 77.3 L Mean Corpuscular Hemoglobin 23.5 L Mean Corpuscular Hemoglobin Concent 30.4 L Red Cell Distribution Width 23.3 H Platelet Count 202 Mean Platelet Volume 9.1 Neutrophils % 74.2 Lymphocytes % 15.0 Monocytes % 6.2 Eosinophils % 0.0 Basophils % 0.1 Nucleated Red Blood Cells % 0.0 Neutrophils # 9.7 H Lymphocytes # 2.0 Monocytes # 0.8 Eosinophils # 0.0 Basophils # 0.0 Nucleated Red Blood Cells # 0.0 Sodium Level 137 Potassium Level 4.4 Chloride Level 104 Carbon Dioxide Level 27 Anion Gap 10 Blood Urea Nitrogen 17 Creatinine 0.43 L Glucose Level 124 Calcium Level 8.5 Phosphorus Level 4.0 Magnesium Level 1.7 Albumin 2.7 L Test 09/18/17 13:39 Bedside Glucose 102 Medications Current Medications Dexamethasone (Decadron) 4 mg BID PO Last administered on 09/18/17 09:09; Admin Dose 4 MG; Start 09/05/17 at 21:00 Docusate Sodium (Colace) 200 mg QHS PO Last administered on 09/16/17 20:18; Admin Dose 200 MG; Start 09/05/17 at 21:00 Ondansetron HCl (Zofran Inj) 4 mg Q6H PRN IV NAUSEA AND/OR VOMITING; Start at 21:00 Acetaminophen (Tylenol Tab) 650 mg Q6H PRN PO PAIN LEVEL 1-3 OR FEVER Last administered on 09/13/17 07:13; Admin Dose 650 MG; Start 09/05/17 at 21:00 Oxycodone/ Acetaminophen (Percocet (5/ 325)) 1 tab Q6H PRN PO MODERATE PAIN LEVEL 4-6; Start 09/05/17 at 21:00 Morphine Sulfate (morphine) 2 mg Q4H PRN IV SEVERE PAIN LEVEL 7-10 Last administered on 09/13/17 02:47; Admin Dose 2 MG; Start 09/05/17 at 21:00 Docusate Sodium (Colace) 100 mg Q12H PRN PO CONSTIPATION; Start 09/05/17 at 21 :00 Magnesium Hydroxide (Milk Of Mag) 30 ml DAILY PRN PO CONSTIPATION; Start 09/05 at 21:00 Famotidine (Pepcid) 20 mg Q12 PO Last administered on 09/18/17 09:09; Admin Dose 20 MG; Start 09/05/17 at 21:00 Albuterol (Proventil 0.083% (Neb)) 2.5 mg Q2 PRN HHN SHORTNESS OF BREATH; Start 09/05/17 at 21:00 Miscellaneous Information 1 ea NOTE XX ; Start 09/05/17 at 21:30 Glucose (Glutose) 15 gm Q15M PRN PO DECREASED GLUCOSE; Start 09/05/17 at 21:30 Glucose (Glutose) 22.5 gm Q15M PRN PO DECREASED GLUCOSE; Start 09/05/17 at 21: 30 Dextrose (D50w Syringe) 25 ml Q15M PRN IV DECREASED GLUCOSE; Start 09/05/17 at 21:30 Dextrose (D50w Syringe) 50 ml Q15M PRN IV DECREASED GLUCOSE; Start 09/05/17 at 21:30 Glucagon (Glucagen) 1 mg Q15M PRN IM DECREASED GLUCOSE; Start 09/05/17 at 21: 30 Glucose (Glutose) 15 gm Q15M PRN BUCCAL DECREASED GLUCOSE; Start 09/05/17 at 21:30 Nystatin (Nystatin Powder) 1 applic BID TOP Last administered on 09/18/17 09: 10; Admin Dose 1 APPLIC; Start 09/06/17 at 09:00 Tamoxifen Citrate 20 mg 20 mg DAILY PO Last administered on 09/18/17 09:20; Admin Dose 20 MG; Start 09/06/17 at 13:00 Ceftriaxone Sodium (Rocephin) 50 ml @ 100 mls/hr Q24H IVPB Last administered on 09/18/17 15:28; Admin Dose 100 MLS/HR; Start 09/08/17 at 14:00 Diagnostic Test (Pha) (Accu-Chek) 1 ea 02 XX ; Start 09/16/17 at 02:00 Assessment/Plan Chief Complaint/Hosp Course Assessment 1. Metastatic breast cancer with recurrent right pleural effusion. Cultures growing gram-positive cocci consistent with staph aureus. 2. Loculated pleural effusion possible empyema status post decortication and pleurodesis. 3. RIBBON CLE[employer]ER metastasis currently receiving steroids and radiation therapy Plan 1. Continue chest tube drainage. Previous cultures grew staph aureus. Antibiotic management discussed with infectious diseases 2. Continue oncology recommendations continues radiation therapy for RIBBON CLEANER metastasis 3. Continue antibiotic coverage for staph infection. Continue radiation therapy Problems: MARTINEZ [facility]ASCORRO [facility] Sep 18, 2017 16:11
[2017-09-18] MEDS: DOCUSATE SODIUM 100 MG CAP PO SCH (21:00)
[2017-09-18 23:24] VITALS: BP 115/66; RESP 18
[2017-09-19 02:30] VITALS: BP 127/68; RESP 20
[2017-09-19] MEDS: ACCU-CHEK XX SCH (02:46)
[2017-09-19 05:05] LABS: ABNORMAL IP MESSAGE 1; BASOPHILS % 0.3 % (0.0-2.0); EOSINOPHILS % 0.1 % (0.0-7.0); HEMOGLOBIN 10.1 g/dl (12.0-16.0); LYMPHOCYTES # 1.3 10^3/ul (0.8-2.9); LYMPHOCYTES % 9.7 % (15.0-51.0); MEAN CORPUSCULAR HEMOGLOBIN 24.2 pg (29.0-33.0); MEAN CORPUSCULAR HGB CONC 30.6 g/dl (32.0-37.0); MEAN CORPUSCULAR VOLUME 78.9 fl (82.0-101.0); MEAN PLATELET VOLUME 9.2 fl (7.4-10.4); MONOCYTE # 0.6 10^3/ul (0.3-0.9); MONOCYTES % 4.9 % (0.0-11.0); NEUTROPHIL # 10.4 10^3/ul (1.6-7.5); NEUTROPHILS % 80.6 % (39.0-77.0); PLATELET COUNT 158 10^3/UL (140-415); RED BLOOD COUNT 4.18 10^6/ul (4.20-5.40); RED CELL DISTRIBUTION WIDTH 23.2 % (11.5-14.5); WHITE BLOOD COUNT 12.9 10^3/ul (4.8-10.8)
[2017-09-19 05:30] LABS: ALBUMIN 2.6 g/dl (3.3-4.9); CALCIUM 8.4 mg/dl (8.4-10.2); CREATININE 0.48 mg/dl (0.44-1.00); MAGNESIUM 1.7 mg/dl (1.7-2.5); PHOSPHORUS 3.8 mg/dl (2.5-4.9); POTASSIUM 4.6 mmol/L (3.5-5.1)
[2017-09-19 06:08] LABS: POSITIVE DIFF @See below
[2017-09-19 08:02] VITALS: BP 115/79; PULSE 81; RESP 16
--- NOTE | 2017-09-19 08:06 | RADRPT ---
PROCEDURE: XR Chest. CLINICAL INDICATION: Shortness of breath. TECHNIQUE: Single frontal view. COMPARISON: 09/16/2017. FINDINGS: A large-bore right chest tube is present with the side-hole in the soft tissues of the chest wall. A small bore right chest tube is coiled in the right pleural space inferiorly. There is a moderate ri ght pleural effusion, unchanged. There is no left pleural effusion. There is atelectasis throughout the right mid and lower lung zones, unchanged. The lungs are otherwise clear. The heart is enlarged. There is no pleural effusion. There is no pneumothorax. IMPRESSION: 1. The large bore right chest tube has been retracted and the side hole is now in the soft tissues of the right chest wall. 2. No other change from the 09/16/2017 chest radiograph. RPTAT: QQ .Itz Parsons MD, Date Time Electronically viewed and signed by .Itz Parsons MD, on 09/19/2017 08:06 .R/
[2017-09-19] MEDS: INSULIN ASPART [NOVOLOG] 3 ML PEN SC SCH ×4 (09:11→20:28)
[2017-09-19] MEDS: DEXAMETHASONE 4 MG TAB PO SCH ×2 (09:12→20:27)
[2017-09-19] MEDS: FAMOTIDINE 20 MG TAB PO SCH ×2 (09:12→20:28)
[2017-09-19] MEDS: NYSTATIN 30 GM POWDER BTL TOP SCH ×2 (09:12→20:29)
[2017-09-19] MEDS: TAMOXIFEN 10 MG TAB PO SCH (09:19)
--- NOTE | 2017-09-19 12:16 | PN ---
DATE: 09/19/2017 INFECTIOUS DISEASE PROGRESS NOTE SUBJECTIVE: No events overnight. The patient is alert, feels good, looks comfortable, no fevers. WBC 12.9, platelets 158, neutrophils 80.6, BUN 20, creatinine 0.48. DIAGNOSTICS: Chest x-ray this morning revealed a large bore right chest tube has been retracted and the side hole is now in the soft tissue of the right chest wall, no other changes. INDWELLINGS: The patient has a right-sided chest tube. ANTIMICROBIALS: Rocephin. PHYSICAL EXAMINATION: GENERAL: This is an obese, well-developed, middle-aged woman who is awake, in no distress. HEENT: Head atraumatic, normocephalic. Sclerae anicteric. Buccal mucosa dry. NECK: Supple. CHEST: Rise symmetrical. Breath sounds diminished to bases. HEART: S1, S2. ABDOMEN: Soft, bowel tones present. EXTREMITIES: Without cyanosis. ASSESSMENT: 1. Right-sided loculated pleural effusion consistent with empyema with fluid culture growing oxacil christopher-sensitive Staphylococcus aureus. The patient is status post decortication and pleurodesis on . 2. Metastatic breast cancer. 3. Diabetes. 4. History of craniectomy for brain metastasis. PLAN: The patient remains stable, scheduled for radiation today. She is being followed by multiple consultants. I will continue her on antibiotics for a total of 4 weeks. Chest tube management as per cardiothoracic surgery. Dictated By: ZULEYMA ALEX HYDROSTATIC TUBING TESTER for FELISHA LU/AFIA Conf#: [id number] DID#: [id number]
--- NOTE | 2017-09-19 12:52 | CONS ---
Date/Time of Note Date/Time of Note DATE: 09/19/17 TIME: 12:46 Consultation Date/Type/Reason Admit Date/Time Sep 05, 2017 at 18:29 Initial Consult Date THIS IS A LATE ENTERY FOR 09/18/17 DUE TO COMPUTER SYSTEM BEING DOWN YESTERDAY SUBJECTIVE: 47 y/o female with Empyema 2/2 staph aureus s/p VATS 09/12/17. Metastatic breast CA. No events overnight. The patient is alert, looks comfortable. Denies fever, chills,and pain. VS: 115/66 P:72 R:18 T:98.0 SO2:97% LABS: WBC- 13.0 H&H: 9.9/32.6 BMP-stable. Pathology : Right lung deep peel, decortication: -- Metastatic carcinoma, with morphological features compatible with a breast primary. -- Hemorrhagic fibrinous and focally neutrophilic exudate. Pleural fluid culture on admission grew oxacillin-sensitive Staphylococcus aureus. ANTIMICROBIALS: The patient is on IV Rocephin. INDWELLINGS: Right chest tube. PHYSICAL EXAMINATION: GENERAL: This is an obese, well-developed, middle-aged woman who is alert, in no distress. HEENT: Head atraumatic, normocephalic. Sclerae anicteric. Buccal mucosa dry. NECK: Supple. CHEST: Rise symmetrical. Breath sounds diminished to bases. HEART: S1, S2. ABDOMEN: Soft, bowel tones present. EXTREMITIES: Without cyanosis. ASSESSMENT: 1. Loculated right pleural effusion status post biopsy with pleurocentesis. 2. Metastatic breast cancer. 3. Diabetes. 4. Obesity. 5. History of craniectomy for brain metastases. PLAN: Patient remained stable. Continue IV Rocephin. Continuing PO dexamethasone. Will obtain CXR in AM Follow recommendations of consultants. Type of Consultation: ID Referring Provider: MINDY NEGRON Exam/Review of Systems Vital Signs Vitals Vital Signs Date Time Temp Pulse Resp B/P Pulse Ox O2 Delivery O2 Flow Rate FiO2 09/19/17 08:02 98.0 81 16 115/79 98 Room Air 09/15/17 20:55 21 Intake and Output 09/18/17 09/18/17 09/19/17 14:59 22:59 06:59 Intake Total 750 ml Balance 750 ml Results Result Diagram: 09/19/17 0440 09/19/17 0440 Results 24 hrs Laboratory Tests Test 09/18/17 13:39 09/18/17 17:35 09/18/17 21:21 09/19/17 02:30 Bedside Glucose 102 117 197 168 Test 09/19/17 04:40 09/19/17 08:19 White Blood Count 12.9 H Red Blood Count 4.18 L Hemoglobin 10.1 L Hematocrit 33.0 L Mean Corpuscular Volume 78.9 L Mean Corpuscular Hemoglobin 24.2 L Mean Corpuscular Hemoglobin Concent 30.6 L Red Cell Distribution Width 23.2 H Platelet Count 158 # Mean Platelet Volume 9.2 Neutrophils % 80.6 H Lymphocytes % 9.7 L Monocytes % 4.9 Eosinophils % 0.1 Basophils % 0.3 Nucleated Red Blood Cells % 0.0 Neutrophils # 10.4 H Lymphocytes # 1.3 Monocytes # 0.6 Eosinophils # 0.0 Basophils # 0.0 Nucleated Red Blood Cells # 0.0 Sodium Level 136 Potassium Level 4.6 Chloride Level 104 Carbon Dioxide Level 27 Anion Gap 10 Blood Urea Nitrogen 20 Creatinine 0.48 Glucose Level 145 Calcium Level 8.4 Phosphorus Level 3.8 Magnesium Level 1.7 Albumin 2.6 L Bedside Glucose 117 Medications Medications Current Medications Dexamethasone (Decadron) 4 mg BID PO Last administered on 09/19/17 09:12; Admin Dose 4 MG; Start 09/05/17 at 21:00 Docusate Sodium (Colace) 200 mg QHS PO Last administered on 09/18/17 21:00; Admin Dose 200 MG; Start 09/05/17 at 21:00 Ondansetron HCl (Zofran Inj) 4 mg Q6H PRN IV NAUSEA AND/OR VOMITING; Start at 21:00 Acetaminophen (Tylenol Tab) 650 mg Q6H PRN PO PAIN LEVEL 1-3 OR FEVER Last administered on 09/13/17 07:13; Admin Dose 650 MG; Start 09/05/17 at 21:00 Oxycodone/ Acetaminophen (Percocet (5/ 325)) 1 tab Q6H PRN PO MODERATE PAIN LEVEL 4-6; Start 09/05/17 at 21:00 Morphine Sulfate (morphine) 2 mg Q4H PRN IV SEVERE PAIN LEVEL 7-10 Last administered on 09/13/17 02:47; Admin Dose 2 MG; Start 09/05/17 at 21:00 Docusate Sodium (Colace) 100 mg Q12H PRN PO CONSTIPATION; Start 09/05/17 at 21 :00 Magnesium Hydroxide (Milk Of Mag) 30 ml DAILY PRN PO CONSTIPATION; Start 09/05 at 21:00 Famotidine (Pepcid) 20 mg Q12 PO Last administered on 09/19/17 09:12; Admin Dose 20 MG; Start 09/05/17 at 21:00 Albuterol (Proventil 0.083% (Neb)) 2.5 mg Q2 PRN HHN SHORTNESS OF BREATH; Start 09/05/17 at 21:00 Miscellaneous Information 1 ea NOTE XX ; Start 09/05/17 at 21:30 Glucose (Glutose) 15 gm Q15M PRN PO DECREASED GLUCOSE; Start 09/05/17 at 21:30 Glucose (Glutose) 22.5 gm Q15M PRN PO DECREASED GLUCOSE; Start 09/05/17 at 21: 30 Dextrose (D50w Syringe) 25 ml Q15M PRN IV DECREASED GLUCOSE; Start 09/05/17 at 21:30 Dextrose (D50w Syringe) 50 ml Q15M PRN IV DECREASED GLUCOSE; Start 09/05/17 at 21:30 Glucagon (Glucagen) 1 mg Q15M PRN IM DECREASED GLUCOSE; Start 09/05/17 at 21: 30 Glucose (Glutose) 15 gm Q15M PRN BUCCAL DECREASED GLUCOSE; Start 09/05/17 at 21:30 Nystatin (Nystatin Powder) 1 applic BID TOP Last administered on 09/19/17 09: 12; Admin Dose 1 APPLIC; Start 09/06/17 at 09:00 Tamoxifen Citrate 20 mg 20 mg DAILY PO Last administered on 09/19/17 09:19; Admin Dose 20 MG; Start 09/06/17 at 13:00 Ceftriaxone Sodium (Rocephin) 50 ml @ 100 mls/hr Q24H IVPB Last administered on 09/18/17 15:28; Admin Dose 100 MLS/HR; Start 09/08/17 at 14:00 Diagnostic Test (Pha) (Accu-Chek) 1 ea 02 XX Last administered on 09/19/17 02: 46; Admin Dose 1 EA; Start 09/16/17 at 02:00 ROSALBA SHARP Sep 19, 2017 12:51
--- NOTE | 2017-09-19 13:39 | PN ---
Date/Time of Note Date/Time of Note DATE: 09/19/17 TIME: 13:39 Assessment/Plan VTE Prophylaxis VTE Prophylaxis Intervention: ambulation Lines/Catheters IV Catheter Type (from [email or web address] Peripheral IV Urinary Cath still in place: No Assessment/Plan Chief Complaint/Hosp Course Patient is a 39-year-old female with a past medical history of metastatic breast cancer with metastases to the liver and brain who presents from [facility] for malfunctioning Pleurx catheter. 1. Empyema 2/2 staph aureus s/p VATS 09/12/17 - Patient doing well and chest tube still in place and draining serous fluid but output decreasing daily - repeat CXR shows increased sized right-sided pleural effusion. Rounded opacity within the right mid lung likely represents pleural fluid in the major fissure. Increased consolidation or atelectasis within the right lower lobe. - started on incentive spirometry - CT chest showed trace loculated pleural effusion with possible empyema in addition to malignant effusion. - CT surgery on board and appreciate consultation - ID on board and recommendations appreciated. continue on IV antibiotics - Ultrasound-guided thoracentesis performed, cultures showing staph aureus 2. Dysfunctional Pleurx catheter - Pulmonology on board and consultation appreciated - Respiratory status stable at this time 3. Cellulitis, area around catheter- improving - ID on board and recommendations appreciated. Continue on antibiotics 4. Metastatic breast cancer, lung, liver, brain, s/p craniectomy - currently receiving radiation therapy and tamoxifen and Decadron - Heme/onc on board and consultation appreciated - Radiation as scheduled 5. Diabetes mellitus - Currently stable 6. Obesity - Counseled about diet and improving exercise routine when able 7. Disposition - Continue monitoring on med/surg while chest tube in place Problems: Subjective 24 Hr Interval Summary Free Text/Dictation no acute complaints, about to go to radiation Exam/Review of Systems Vital Signs Vitals Vital Signs Date Time Temp Pulse Resp B/P Pulse Ox O2 Delivery O2 Flow Rate FiO2 09/19/17 08:02 98.0 81 16 115/79 98 Room Air 09/15/17 20:55 21 Intake and Output 09/18/17 09/18/17 09/19/17 15:00 23:00 07:00 Intake Total 750 ml Balance 750 ml Exam General: Patient awake and alert, no acute distress. Head: R side craniectomy site healing well. improving fluctuant edema right side Eyes: EOMI, pupils reactive to light Neck: Supple, nontender, midline Respiratory: diminished air entry with chest tube in place draining slightly pink tinged serous fluid Cardiovascular: regular rate, no obvious murmurs Gastrointestinal: non-tender to palpation, bowel sounds heard. Neurological: Moves all extremities spontaneously Results Result Diagram: 09/19/17 0440 09/19/17 0440 Results 24 hrs Laboratory Tests Test 09/18/17 17:35 09/18/17 21:21 09/19/17 02:30 09/19/17 04:40 Bedside Glucose 117 197 168 White Blood Count 12.9 H Red Blood Count 4.18 L Hemoglobin 10.1 L Hematocrit 33.0 L Mean Corpuscular Volume 78.9 L Mean Corpuscular Hemoglobin 24.2 L Mean Corpuscular Hemoglobin Concent 30.6 L Red Cell Distribution Width 23.2 H Platelet Count 158 # Mean Platelet Volume 9.2 Neutrophils % 80.6 H Lymphocytes % 9.7 L Monocytes % 4.9 Eosinophils % 0.1 Basophils % 0.3 Nucleated Red Blood Cells % 0.0 Neutrophils # 10.4 H Lymphocytes # 1.3 Monocytes # 0.6 Eosinophils # 0.0 Basophils # 0.0 Nucleated Red Blood Cells # 0.0 Sodium Level 136 Potassium Level 4.6 Chloride Level 104 Carbon Dioxide Level 27 Anion Gap 10 Blood Urea Nitrogen 20 Creatinine 0.48 Glucose Level 145 Calcium Level 8.4 Phosphorus Level 3.8 Magnesium Level 1.7 Albumin 2.6 L Test 09/19/17 08:19 Bedside Glucose 117 Medications Medications Current Medications Dexamethasone (Decadron) 4 mg BID PO Last administered on 09/19/17 09:12; Admin Dose 4 MG; Start 09/05/17 at 21:00 Docusate Sodium (Colace) 200 mg QHS PO Last administered on 09/18/17 21:00; Admin Dose 200 MG; Start 09/05/17 at 21:00 Ondansetron HCl (Zofran Inj) 4 mg Q6H PRN IV NAUSEA AND/OR VOMITING; Start at 21:00 Acetaminophen (Tylenol Tab) 650 mg Q6H PRN PO PAIN LEVEL 1-3 OR FEVER Last administered on 09/13/17 07:13; Admin Dose 650 MG; Start 09/05/17 at 21:00 Oxycodone/ Acetaminophen (Percocet (5/ 325)) 1 tab Q6H PRN PO MODERATE PAIN LEVEL 4-6; Start 09/05/17 at 21:00 Morphine Sulfate (morphine) 2 mg Q4H PRN IV SEVERE PAIN LEVEL 7-10 Last administered on 09/13/17 02:47; Admin Dose 2 MG; Start 09/05/17 at 21:00 Docusate Sodium (Colace) 100 mg Q12H PRN PO CONSTIPATION; Start 09/05/17 at 21 :00 Magnesium Hydroxide (Milk Of Mag) 30 ml DAILY PRN PO CONSTIPATION; Start 09/05 at 21:00 Famotidine (Pepcid) 20 mg Q12 PO Last administered on 09/19/17 09:12; Admin Dose 20 MG; Start 09/05/17 at 21:00 Albuterol (Proventil 0.083% (Neb)) 2.5 mg Q2 PRN HHN SHORTNESS OF BREATH; Start 09/05/17 at 21:00 Miscellaneous Information 1 ea NOTE XX ; Start 09/05/17 at 21:30 Glucose (Glutose) 15 gm Q15M PRN PO DECREASED GLUCOSE; Start 09/05/17 at 21:30 Glucose (Glutose) 22.5 gm Q15M PRN PO DECREASED GLUCOSE; Start 09/05/17 at 21: 30 Dextrose (D50w Syringe) 25 ml Q15M PRN IV DECREASED GLUCOSE; Start 09/05/17 at 21:30 Dextrose (D50w Syringe) 50 ml Q15M PRN IV DECREASED GLUCOSE; Start 09/05/17 at 21:30 Glucagon (Glucagen) 1 mg Q15M PRN IM DECREASED GLUCOSE; Start 09/05/17 at 21: 30 Glucose (Glutose) 15 gm Q15M PRN BUCCAL DECREASED GLUCOSE; Start 09/05/17 at 21:30 Nystatin (Nystatin Powder) 1 applic BID TOP Last administered on 09/19/17 09: 12; Admin Dose 1 APPLIC; Start 09/06/17 at 09:00 Tamoxifen Citrate 20 mg 20 mg DAILY PO Last administered on 09/19/17 09:19; Admin Dose 20 MG; Start 09/06/17 at 13:00 Ceftriaxone Sodium (Rocephin) 50 ml @ 100 mls/hr Q24H IVPB Last administered on 09/18/17 15:28; Admin Dose 100 MLS/HR; Start 09/08/17 at 14:00 Diagnostic Test (Pha) (Accu-Chek) 1 Last administered on 09/19/17 02: 46; Admin Dose 1 EA; Start 09/16/17 at 02:00 JUAN MOTLEY Sep 19, 2017 13:39
[2017-09-19] MEDS: CEFTRIAXONE 1 GM/50 ML (PMX) 50 ML IVPB SCH (13:49)
[2017-09-19 14:12] VITALS: BP 135/78; RESP 18
[2017-09-19 17:30] VITALS: BP 127/75; PULSE 79; RESP 16
[2017-09-19 20:00] VITALS: BP 97/50; RESP 18
[2017-09-19] MEDS: DOCUSATE SODIUM 100 MG CAP PO SCH (20:27)
--- NOTE | 2017-09-19 21:02 | PN ---
Date/Time of Note Date/Time of Note DATE: 09/19/17 TIME: 21:02 Assessment/Plan Lines/Catheters IV Catheter Type (from Nrs): Peripheral IV Francois in Place (from Nrs): No Assessment/Plan Chief Complaint/Hosp Course IMPRESSION: Right loculated pleural effusion. R status post right VATS pleurodesis decortication Patient feels much better CT 100 cc Less shortness of breath Check chest x-ray Will continue chest tube suction Problems: Subjective 24 Hr Interval Summary Constitutional: improved Pain Control: mild Exam/Review of Systems Vital Signs Vitals Vital Signs Date Time Temp Pulse Resp B/P Pulse Ox O2 Delivery O2 Flow Rate FiO2 09/19/17 17:30 98.0 79 16 127/75 99 Room Air 09/15/17 20:55 21 Intake and Output 09/18/17 09/18/17 09/19/17 15:00 23:00 07:00 Intake Total 750 ml Balance 750 ml Exam ENMT: mucosa pink and moist, nl external ears & nose, nl lips & teeth, nl nasal mucosa & septum Neck: non-tender, supple Respiratory: clear to auscultation, normal air movement Cardiovascular: nl pulses, regular rate and rhythm Results Result Diagram: 09/19/1743909/19/17439 DEVIKA MENA MD Sep 19, 2017 21:02
[2017-09-20 02:00] VITALS: BP 126/67; RESP 18
[2017-09-20] MEDS: ACCU-CHEK XX SCH (02:00)
[2017-09-20 05:20] LABS: ABNORMAL IP MESSAGE 1; BASOPHILS % 0.2 % (0.0-2.0); HEMOGLOBIN 9.8 g/dl (12.0-16.0); LYMPHOCYTES # 1.5 10^3/ul (0.8-2.9); LYMPHOCYTES % 12.5 % (15.0-51.0); MEAN CORPUSCULAR HEMOGLOBIN 24.9 pg (29.0-33.0); MEAN CORPUSCULAR HGB CONC 31.6 g/dl (32.0-37.0); MEAN CORPUSCULAR VOLUME 78.9 fl (82.0-101.0); MEAN PLATELET VOLUME 8.8 fl (7.4-10.4); MONOCYTE # 0.5 10^3/ul (0.3-0.9); MONOCYTES % 4.6 % (0.0-11.0); NEUTROPHIL # 9.1 10^3/ul (1.6-7.5); NEUTROPHILS % 78.2 % (39.0-77.0); PLATELET COUNT 138 10^3/UL (140-415); RED BLOOD COUNT 3.93 10^6/ul (4.20-5.40); RED CELL DISTRIBUTION WIDTH 23.1 % (11.5-14.5); WHITE BLOOD COUNT 11.6 10^3/ul (4.8-10.8)
[2017-09-20 05:33] LABS: POSITIVE DIFF @See below
[2017-09-20 06:16] LABS: CALCIUM 8.2 mg/dl (8.4-10.2); CREATININE 0.45 mg/dl (0.44-1.00); MAGNESIUM 1.8 mg/dl (1.7-2.5); PHOSPHORUS 3.4 mg/dl (2.5-4.9); POTASSIUM 4.3 mmol/L (3.5-5.1)
[2017-09-20] MEDS: INSULIN ASPART [NOVOLOG] 3 ML PEN SC SCH ×4 (07:50→21:10)
[2017-09-20 08:00] VITALS: BP 127/80; RESP 16
[2017-09-20] MEDS: DEXAMETHASONE 4 MG TAB PO SCH ×2 (08:44→21:08)
[2017-09-20] MEDS: FAMOTIDINE 20 MG TAB PO SCH ×2 (08:44→21:08)
[2017-09-20] MEDS: NYSTATIN 30 GM POWDER BTL TOP SCH ×2 (08:45→21:12)
[2017-09-20] MEDS: TAMOXIFEN 10 MG TAB PO SCH (08:49)
--- NOTE | 2017-09-20 12:39 | CONS ---
Date/Time of Note Date/Time of Note DATE: 09/20/17 TIME: 12:39 Assessment/Plan Assessment/Plan Chief Complaint/Hosp Course SUBJECTIVE: No events overnight. The patient is alert, feels good, looks comfortable, no fevers. INDWELLINGS: The patient has a right-sided chest tube. ANTIMICROBIALS: Rocephin. PHYSICAL EXAMINATION: GENERAL: This is an obese, well-developed, middle-aged woman who is awake, in no distress. HEENT: Head atraumatic, normocephalic. Sclerae anicteric. Buccal mucosa dry. NECK: Supple. CHEST: Rise symmetrical. Breath sounds diminished to bases. HEART: S1, S2. ABDOMEN: Soft, bowel tones present. EXTREMITIES: Without cyanosis. ASSESSMENT: 1. Right-sided loculated pleural effusion consistent with empyema with fluid culture growing oxacillin-sensitive Staphylococcus aureus. The patient is status post decortication and pleurodesis on 09/12/2017. 2. Metastatic breast cancer. 3. Diabetes. 4. History of craniectomy for brain metastasis. PLAN: The patient remains stable. She is being followed by multiple consultants. We will continue her on current antibiotics for a total of 4 weeks. Chest tube management as per cardiothoracic surgery. [facility] staff Problems: Consultation Date/Type/Reason Admit Date/Time Sep 05, 2017 at 18:29 Initial Consult Date 09/07/17 Type of Consultation: ID Referring Provider: MINDY NEGRON Exam/Review of Systems Vital Signs Vitals Vital Signs Date Time Temp Pulse Resp B/P Pulse Ox O2 Delivery O2 Flow Rate FiO2 09/20/17 08:00 98.1 83 16 127/80 96 09/19/17 17:30 Room Air Intake and Output 09/19/17 09/19/17 09/20/17 14:59 22:59 06:59 Intake Total 50 ml 1340 ml 1100 ml Output Total 100 ml 600 ml 1300 ml Balance -50 ml 740 ml -200 ml Results Result Diagram: 09/20/17 0429 09/20/17 0429 Results 24 hrs Laboratory Tests Test 09/19/17 13:47 09/19/17 18:23 09/19/17 20:26 09/20/17 04:29 Bedside Glucose 168 142 198 White Blood Count 11.6 H Red Blood Count 3.93 L Hemoglobin 9.8 L Hematocrit 31.0 L Mean Corpuscular Volume 78.9 L Mean Corpuscular Hemoglobin 24.9 L Mean Corpuscular Hemoglobin Concent 31.6 L Red Cell Distribution Width 23.1 H Platelet Count 138 L Mean Platelet Volume 8.8 Neutrophils % 78.2 H Lymphocytes % 12.5 L Monocytes % 4.6 Eosinophils % 0.0 Basophils % 0.2 Nucleated Red Blood Cells % 0.0 Neutrophils # 9.1 H Lymphocytes # 1.5 Monocytes # 0.5 Eosinophils # 0.0 Basophils # 0.0 Nucleated Red Blood Cells # 0.0 Sodium Level 137 Potassium Level 4.3 Chloride Level 104 Carbon Dioxide Level 23 Anion Gap 14 Blood Urea Nitrogen 16 Creatinine 0.45 Glucose Level 166 Calcium Level 8.2 L Phosphorus Level 3.4 Magnesium Level 1.8 Test 09/20/17 08:42 Bedside Glucose 114 Medications Medications Current Medications Dexamethasone (Decadron) 4 mg BID PO Last administered on 09/20/17 08:44; Admin Dose 4 MG; Start 09/05/17 at 21:00 Docusate Sodium (Colace) 200 mg QHS PO Last administered on 09/19/17 20:27; Admin Dose 100 MG; Start 09/05/17 at 21:00 Ondansetron HCl (Zofran Inj) 4 mg Q6H PRN IV NAUSEA AND/OR VOMITING; Start at 21:00 Acetaminophen (Tylenol Tab) 650 mg Q6H PRN PO PAIN LEVEL 1-3 OR FEVER Last administered on 09/13/17 07:13; Admin Dose 650 MG; Start 09/05/17 at 21:00 Oxycodone/ Acetaminophen (Percocet (5/ 325)) 1 tab Q6H PRN PO MODERATE PAIN LEVEL 4-6; Start 09/05/17 at 21:00 Morphine Sulfate (morphine) 2 mg Q4H PRN IV SEVERE PAIN LEVEL 7-10 Last administered on 09/13/17 02:47; Admin Dose 2 MG; Start 09/05/17 at 21:00 Docusate Sodium (Colace) 100 mg Q12H PRN PO CONSTIPATION; Start 09/05/17 at 21 :00 Magnesium Hydroxide (Milk Of Mag) 30 ml DAILY PRN PO CONSTIPATION; Start 09/05 at 21:00 Famotidine (Pepcid) 20 mg Q12 PO Last administered on 09/20/17 08:44; Admin Dose 20 MG; Start 09/05/17 at 21:00 Albuterol (Proventil 0.083% (Neb)) 2.5 mg Q2 PRN HHN SHORTNESS OF BREATH; Start 09/05/17 at 21:00 Miscellaneous Information 1 ea NOTE XX ; Start 09/05/17 at 21:30 Glucose (Glutose) 15 gm Q15M PRN PO DECREASED GLUCOSE; Start 09/05/17 at 21:30 Glucose (Glutose) 22.5 gm Q15M PRN PO DECREASED GLUCOSE; Start 09/05/17 at 21: 30 Dextrose (D50w Syringe) 25 ml Q15M PRN IV DECREASED GLUCOSE; Start 09/05/17 at 21:30 Dextrose (D50w Syringe) 50 ml Q15M PRN IV DECREASED GLUCOSE; Start 09/05/17 at 21:30 Glucagon (Glucagen) 1 mg Q15M PRN IM DECREASED GLUCOSE; Start 09/05/17 at 21: 30 Glucose (Glutose) 15 gm Q15M PRN BUCCAL DECREASED GLUCOSE; Start 09/05/17 at 21:30 Nystatin (Nystatin Powder) 1 applic BID TOP Last administered on 09/20/17 08: 45; Admin Dose 1 APPLIC; Start 09/06/17 at 09:00 Tamoxifen Citrate 20 mg 20 mg DAILY PO Last administered on 09/20/17 08:49; Admin Dose 20 MG; Start 09/06/17 at 13:00 Ceftriaxone Sodium (Rocephin) 50 ml @ 100 mls/hr Q24H IVPB Last administered on 09/19/17 13:49; Admin Dose 100 MLS/HR; Start 09/08/17 at 14:00 Diagnostic Test (Pha) (Accu-Chek) 1 ea 02 XX Last administered on 09/19/17 02: 46; Admin Dose 1 EA; Start 09/16/17 at 02:00 ZULEYMA ALEX NP Sep 20, 2017 12:39
--- NOTE | 2017-09-20 13:49 | PN ---
Date/Time of Note Date/Time of Note DATE: 09/20/17 TIME: 13:48 Assessment/Plan VTE Prophylaxis VTE Prophylaxis Intervention: ambulation Lines/Catheters IV [facility] Type (from [facility] Saline Lock Urinary Cath still in place: No Assessment/Plan Chief Complaint/Hosp Course Patient is a 39-year-old female with a past medical history of metastatic breast cancer with metastases to the liver and brain who presents from [facility] for malfunctioning Pleurx catheter. 1. Empyema 2/2 staph aureus s/p VATS 09/12/17 - Patient doing well and chest tube still in place and draining serous fluid but output decreasing daily - repeat CXR shows increased sized right-sided pleural effusion. Rounded opacity within the right mid lung likely represents pleural fluid in the major fissure. Increased consolidation or atelectasis within the right lower lobe. - started on incentive spirometry - CT chest showed trace loculated pleural effusion with possible empyema in addition to malignant effusion. - CT surgery on board and appreciate consultation - ID on board and recommendations appreciated. continue on IV antibiotics - Ultrasound-guided thoracentesis performed, cultures showing staph aureus 2. Dysfunctional Pleurx catheter - Pulmonology on board and consultation appreciated - Respiratory status stable at this time 3. Cellulitis, area around catheter- improving - ID on board and recommendations appreciated. Continue on antibiotics 4. Metastatic breast cancer, lung, liver, brain, s/p craniectomy - currently receiving radiation therapy and tamoxifen and Decadron - Heme/onc on board and consultation appreciated - Radiation as scheduled 5. Diabetes mellitus - Currently stable 6. Obesity - Counseled about diet and improving exercise routine when able 7. Disposition - Continue monitoring on med/surg while chest tube in place Problems: Subjective 24 Hr Interval Summary Free Text/Dictation no acute overnight issues, fell yesterday, no head trauma, doing well Exam/Review of Systems Vital Signs Vitals Vital Signs Date Time Temp Pulse Resp B/P Pulse Ox O2 Delivery O2 Flow Rate FiO2 09/20/17 08:00 98.1 83 16 127/80 96 09/19/17 17:30 Room Air Intake and Output 09/19/17 09/19/17 09/20/17 15:00 23:00 07:00 Intake Total 50 ml 1340 ml 1100 ml Output Total 100 ml 600 ml 1300 ml Balance -50 ml 740 ml -200 ml Exam General: Patient awake and alert, no acute distress. Head: R side craniectomy site healing well. improving fluctuant edema right side Eyes: EOMI, pupils reactive to light Neck: Supple, nontender, midline Respiratory: diminished air entry with chest tube in place draining slightly pink tinged serous fluid Cardiovascular: regular rate, no obvious murmurs Gastrointestinal: non-tender to palpation, bowel sounds heard. Neurological: Moves all extremities spontaneously Results Result Diagram: 09/20/1742809/20/17428 Results 24 hrs Laboratory Tests Test 09/19/17 18:23 09/19/17 20:26 09/20/17 04:29 09/20/17 08:42 Bedside Glucose 142 198 114 White Blood Count 11.6 H Red Blood Count 3.93 L Hemoglobin 9.8 L Hematocrit 31.0 L Mean Corpuscular Volume 78.9 L Mean Corpuscular Hemoglobin 24.9 L Mean Corpuscular Hemoglobin Concent 31.6 L Red Cell Distribution Width 23.1 H Platelet Count 138 L Mean Platelet Volume 8.8 Neutrophils % 78.2 H Lymphocytes % 12.5 L Monocytes % 4.6 Eosinophils % 0.0 Basophils % 0.2 Nucleated Red Blood Cells % 0.0 Neutrophils # 9.1 H Lymphocytes # 1.5 Monocytes # 0.5 Eosinophils # 0.0 Basophils # 0.0 Nucleated Red Blood Cells # 0.0 Sodium Level 137 Potassium Level 4.3 Chloride Level 104 Carbon Dioxide Level 23 Anion Gap 14 Blood Urea Nitrogen 16 Creatinine 0.45 Glucose Level 166 Calcium Level 8.2 L Phosphorus Level 3.4 Magnesium Level 1.8 Test 09/20/17 13:07 Bedside Glucose 149 Medications Medications Current Medications Dexamethasone (Decadron) 4 mg BID PO Last administered on 09/20/17 08:44; Admin Dose 4 MG; Start 09/05/17 at 21:00 Docusate Sodium (Colace) 200 mg QHS PO Last administered on 09/19/17 20:27; Admin Dose 100 MG; Start 09/05/17 at 21:00 Ondansetron HCl (Zofran Inj) 4 mg Q6H PRN IV NAUSEA AND/OR VOMITING; Start at 21:00 Acetaminophen (Tylenol Tab) 650 mg Q6H PRN PO PAIN LEVEL 1-3 OR FEVER Last administered on 09/13/17 07:13; Admin Dose 650 MG; Start 09/05/17 at 21:00 Oxycodone/ Acetaminophen (Percocet (5/ 325)) 1 tab Q6H PRN PO MODERATE PAIN LEVEL 4-6; Start 09/05/17 at 21:00 Morphine Sulfate (morphine) 2 mg Q4H PRN IV SEVERE PAIN LEVEL 7-10 Last administered on 09/13/17 02:47; Admin Dose 2 MG; Start 09/05/17 at 21:00 Docusate Sodium (Colace) 100 mg Q12H PRN PO CONSTIPATION; Start 09/05/17 at 21 :00 Magnesium Hydroxide (Milk Of Mag) 30 ml DAILY PRN PO CONSTIPATION; Start 09/05 at 21:00 Famotidine (Pepcid) 20 mg Q12 PO Last administered on 09/20/17 08:44; Admin Dose 20 MG; Start 09/05/17 at 21:00 Albuterol (Proventil 0.083% (Neb)) 2.5 mg Q2 PRN HHN SHORTNESS OF BREATH; Start 09/05/17 at 21:00 Miscellaneous Information 1 ea NOTE XX ; Start 09/05/17 at 21:30 Glucose (Glutose) 15 gm Q15M PRN PO DECREASED GLUCOSE; Start 09/05/17 at 21:30 Glucose (Glutose) 22.5 gm Q15M PRN PO DECREASED GLUCOSE; Start 09/05/17 at 21: 30 Dextrose (D50w Syringe) 25 ml Q15M PRN IV DECREASED GLUCOSE; Start 09/05/17 at 21:30 Dextrose (D50w Syringe) 50 ml Q15M PRN IV DECREASED GLUCOSE; Start 09/05/17 at 21:30 Glucagon (Glucagen) 1 mg Q15M PRN IM DECREASED GLUCOSE; Start 09/05/17 at 21: 30 Glucose (Glutose) 15 gm Q15M PRN BUCCAL DECREASED GLUCOSE; Start 09/05/17 at 21:30 Nystatin (Nystatin Powder) 1 applic BID TOP Last administered on 09/20/17 08: 45; Admin Dose 1 APPLIC; Start 09/06/17 at 09:00 Tamoxifen Citrate 20 mg 20 mg DAILY PO Last administered on 09/20/17 08:49; Admin Dose 20 MG; Start 09/06/17 at 13:00 Ceftriaxone Sodium (Rocephin) 50 ml @ 100 mls/hr Q24H IVPB Last administered on 09/19/17 13:49; Admin Dose 100 MLS/HR; Start 09/08/17 at 14:00 Diagnostic Test (Pha) (Accu-Chek) 1 ea XX Last administered on 09/19/17 02: 46; Admin Dose 1 EA; Start 09/16/17 at 02:00 JUAN MOTLEY Sep 20, 2017 13:49
[2017-09-20] MEDS: CEFTRIAXONE 1 GM/50 ML (PMX) 50 ML IVPB SCH (13:52)
[2017-09-20 14:00] VITALS: BP 121/67; RESP 18
--- NOTE | 2017-09-20 18:33 | PN ---
Date/Time of Note Date/Time of Note DATE: 09/20/17 TIME: 18:33 Assessment/Plan Lines/Catheters IV Catheter Type (from Nrs): Saline Lock Francois in Place (from Nrs): No Assessment/Plan Chief Complaint/Hosp Course IMPRESSION: Right loculated pleural effusion. R status post right VATS pleurodesis decortication Patient feels much better CT 200 cc Less shortness of breath Check chest x-ray Will continue chest tube suction Problems: Subjective 24 Hr Interval Summary Pain Control: mild Exam/Review of Systems Vital Signs Vitals Vital Signs Date Time Temp Pulse Resp B/P Pulse Ox O2 Delivery O2 Flow Rate FiO2 09/20/17 14:00 98.7 71 18 121/67 97 09/19/17 17:30 Room Air Intake and Output 09/19/17 09/19/17 09/20/17 15:00 23:00 07:00 Intake Total 50 ml 1340 ml 1100 ml Output Total 100 ml 600 ml 1300 ml Balance -50 ml 740 ml -200 ml Exam ENMT: mucosa pink and moist, nl external ears & nose, nl lips & teeth, nl nasal mucosa & septum Neck: non-tender, supple Respiratory: clear to auscultation, normal air movement Cardiovascular: nl pulses, regular rate and rhythm Results Result Diagram: 09/20/17 0429 09/20/17 0429 DEVIKA MENA MD Sep 20, 2017 18:33
[2017-09-20 19:56] VITALS: BP 120/65; RESP 18
[2017-09-20] MEDS: DOCUSATE SODIUM 100 MG CAP PO SCH (21:08)
[2017-09-21 01:53] VITALS: BP 116/65; RESP 16
[2017-09-21] MEDS: ACCU-CHEK XX SCH (02:07)
[2017-09-21] MEDS: INSULIN ASPART [NOVOLOG] 3 ML PEN SC SCH ×4 (07:50→21:00)
[2017-09-21 08:00] VITALS: BP 127/69; RESP 18
[2017-09-21] MEDS: FAMOTIDINE 20 MG TAB PO SCH ×2 (08:34→21:10)
[2017-09-21] MEDS: NYSTATIN 30 GM POWDER BTL TOP SCH ×2 (08:34→21:13)
[2017-09-21] MEDS: DEXAMETHASONE 4 MG TAB PO SCH ×2 (08:34→21:11)
[2017-09-21] MEDS: TAMOXIFEN 10 MG TAB PO SCH (08:36)
--- NOTE | 2017-09-21 13:06 | CONS ---
Date/Time of Note Date/Time of Note DATE: 09/21/17 TIME: 13:05 Consult Date/Type/Reason Admit Date/Time Sep 05, 2017 at 18:29 Initial Consult Date 09/07/17 Type of Consultation: ID Ordering Provider: MINDY NEGRON Objective Vital Signs Date Time Temp Pulse Resp B/P Pulse Ox O2 Delivery O2 Flow Rate FiO2 09/21/17 08:00 98.6 58 18 127/69 99 09/19/17 17:30 Room Air Intake and Output 09/20/17 09/20/17 09/21/17 15:00 23:00 07:00 Intake Total 50 ml 700 ml 540 ml Output Total 525 ml 880 ml Balance 50 ml 175 ml -340 ml Results/Medications Result Diagram: 09/20/17 0429 09/20/17 0429 Results 24 hrs Laboratory Tests Test 09/20/17 13:07 09/20/17 17:47 09/20/17 21:06 09/21/17 02:06 Bedside Glucose 149 138 207 156 Test 09/21/17 08:32 09/21/17 11:44 Bedside Glucose 112 174 Medications Current Medications Dexamethasone (Decadron) 4 mg BID PO Last administered on 09/21/17 08:34; Admin Dose 4 MG; Start 09/05/17 at 21:00 Docusate Sodium (Colace) 200 mg QHS PO Last administered on 09/20/17 21:08; Admin Dose 200 MG; Start 09/05/17 at 21:00 Ondansetron HCl (Zofran Inj) 4 mg Q6H PRN IV NAUSEA AND/OR VOMITING; Start at 21:00 Acetaminophen (Tylenol Tab) 650 mg Q6H PRN PO PAIN LEVEL 1-3 OR FEVER Last administered on 09/13/17 07:13; Admin Dose 650 MG; Start 09/05/17 at 21:00 Oxycodone/ Acetaminophen (Percocet (5/ 325)) 1 tab Q6H PRN PO MODERATE PAIN LEVEL 4-6; Start 09/05/17 at 21:00 Morphine Sulfate (morphine) 2 mg Q4H PRN IV SEVERE PAIN LEVEL 7-10 Last administered on 09/13/17 02:47; Admin Dose 2 MG; Start 09/05/17 at 21:00 Docusate Sodium (Colace) 100 mg Q12H PRN PO CONSTIPATION; Start 09/05/17 at 21 :00 Magnesium Hydroxide (Milk Of Mag) 30 ml DAILY PRN PO CONSTIPATION; Start 09/05 at 21:00 Famotidine (Pepcid) 20 mg Q12 PO Last administered on 09/21/17 08:34; Admin Dose 20 MG; Start 09/05/17 at 21:00 Albuterol (Proventil 0.083% (Neb)) 2.5 mg Q2 PRN HHN SHORTNESS OF BREATH; Start 09/05/17 at 21:00 Miscellaneous Information 1 ea NOTE XX ; Start 09/05/17 at 21:30 Glucose (Glutose) 15 gm Q15M PRN PO DECREASED GLUCOSE; Start 09/05/17 at 21:30 Glucose (Glutose) 22.5 gm Q15M PRN PO DECREASED GLUCOSE; Start 09/05/17 at 21: 30 Dextrose (D50w Syringe) 25 ml Q15M PRN IV DECREASED GLUCOSE; Start 09/05/17 at 21:30 Dextrose (D50w Syringe) 50 ml Q15M PRN IV DECREASED GLUCOSE; Start 09/05/17 at 21:30 Glucagon (Glucagen) 1 mg Q15M PRN IM DECREASED GLUCOSE; Start 09/05/17 at 21: 30 Glucose (Glutose) 15 gm Q15M PRN BUCCAL DECREASED GLUCOSE; Start 09/05/17 at 21:30 Nystatin (Nystatin Powder) 1 applic BID TOP Last administered on 09/21/17 08: 34; Admin Dose 1 APPLIC; Start 09/06/17 at 09:00 Tamoxifen Citrate 20 mg 20 mg DAILY PO Last administered on 09/21/17 08:36; Admin Dose 20 MG; Start 09/06/17 at 13:00 Ceftriaxone Sodium (Rocephin) 50 ml @ 100 mls/hr Q24H IVPB Last administered on 09/20/17 13:52; Admin Dose 100 MLS/HR; Start 09/08/17 at 14:00 Diagnostic Test (Pha) (Accu-Chek) 1 ea 02 XX Last administered on 09/21/17 02: 07; Admin Dose 1 EA; Start 09/16/17 at 02:00 Assessment/Plan Chief Complaint/Hosp Course SUBJECTIVE: No events overnight. Looks comfortable, no fevers. INDWELLINGS: The patient has a right-sided chest tube. ANTIMICROBIALS: Rocephin. PHYSICAL EXAMINATION: GENERAL: This is an obese, well-developed, middle-aged woman who is awake, in no distress. HEENT: Head atraumatic, normocephalic. Sclerae anicteric. Buccal mucosa dry. NECK: Supple. CHEST: Rise symmetrical. Breath sounds diminished to bases. HEART: S1, S2. ABDOMEN: Soft, bowel tones present. EXTREMITIES: Without cyanosis. ASSESSMENT: 1. Right-sided loculated pleural effusion consistent with empyema with fluid culture growing oxacillin-sensitive Staphylococcus aureus. The patient is status post decortication and pleurodesis on 09/12/2017. 2. Metastatic breast cancer. 3. Diabetes. 4. History of craniectomy for brain metastasis. PLAN: The patient remains stable. Continue abx for total of 4 weeks for empyema. Pulmonary/CTS/oncology rec-s [facility] staff Problems: ZULEYMA ALEX NP Sep 21, 2017 13:06
--- NOTE | 2017-09-21 14:08 | PN ---
Date/Time of Note Date/Time of Note DATE: 09/21/17 TIME: 14:07 Assessment/Plan VTE Prophylaxis VTE Prophylaxis Intervention: ambulation Lines/Catheters IV Catheter Type (from [facility]): Saline Lock Urinary Cath still in place: No Assessment/Plan Chief Complaint/Hosp Course Patient is a 39-year-old female with a past medical history of metastatic breast cancer with metastases to the liver and brain who presents from [facility] for malfunctioning Pleurx catheter. 1. Empyema 2/2 staph aureus s/p VATS 09/12/17 - Patient doing well and chest tube still in place and draining serous fluid but output decreasing daily - repeat CXR shows increased sized right-sided pleural effusion. Rounded opacity within the right mid lung likely represents pleural fluid in the major fissure. Increased consolidation or atelectasis within the right lower lobe. - started on incentive spirometry - CT chest showed trace loculated pleural effusion with possible empyema in addition to malignant effusion. - CT surgery on board and appreciate consultation - ID on board and recommendations appreciated. continue on IV antibiotics - Ultrasound-guided thoracentesis performed, cultures showing staph aureus 2. Dysfunctional Pleurx catheter - Pulmonology on board and consultation appreciated - Respiratory status stable at this time 3. Cellulitis, area around catheter- improving - ID on board and recommendations appreciated. Continue on antibiotics 4. Metastatic breast cancer, lung, liver, brain, s/p craniectomy - currently receiving radiation therapy and tamoxifen and Decadron - Heme/onc on board and consultation appreciated - Radiation as scheduled 5. Diabetes mellitus - Currently stable 6. Obesity - Counseled about diet and improving exercise routine when able 7. Disposition - Continue monitoring on med/surg while chest tube in place - will continue with chest tube management, IV abx for 4 weeks total, DC to SNF when chest tube situation finalized and accepting facility that will accommodate travel to and from radiation therapy and heme/onc, Dr. Doan. Problems: Subjective 24 Hr Interval Summary Free Text/Dictation no acute complaints Exam/Review of Systems Vital Signs Vitals Vital Signs Date Time Temp Pulse Resp B/P Pulse Ox O2 Delivery O2 Flow Rate FiO2 09/21/17 08:00 98.6 58 18 127/69 99 09/19/17 17:30 Room Air Intake and Output 09/20/17 09/20/17 09/21/17 15:00 23:00 07:00 Intake Total 50 ml 700 ml 540 ml Output Total 525 ml 880 ml Balance 50 ml 175 ml -340 ml Exam General: Patient awake and alert, no acute distress. Head: R side craniectomy site healing well. improving fluctuant edema right side Eyes: EOMI, pupils reactive to light Neck: Supple, nontender, midline Respiratory: diminished air entry with chest tube in place draining slightly pink tinged serous fluid Cardiovascular: regular rate, no obvious murmurs Gastrointestinal: non-tender to palpation, bowel sounds heard. Neurological: Moves all extremities spontaneously Results Result Diagram: 09/20/1742809/20/17428 Results 24 hrs Laboratory Tests Test 09/20/17 17:47 09/20/17 21:06 09/21/17 02:06 09/21/17 08:32 Bedside Glucose 138 207 156 112 Test 09/21/17 11:44 Bedside Glucose 174 Medications Medications Current Medications Dexamethasone (Decadron) 4 mg BID PO Last administered on 09/21/17 08:34; Admin Dose 4 MG; Start 09/05/17 at 21:00 Docusate Sodium (Colace) 200 mg QHS PO Last administered on 09/20/17 21:08; Admin Dose 200 MG; Start 09/05/17 at 21:00 Ondansetron HCl (Zofran Inj) 4 mg Q6H PRN IV NAUSEA AND/OR VOMITING; Start at 21:00 Acetaminophen (Tylenol Tab) 650 mg Q6H PRN PO PAIN LEVEL 1-3 OR FEVER Last administered on 09/13/17 07:13; Admin Dose 650 MG; Start 09/05/17 at 21:00 Oxycodone/ Acetaminophen (Percocet (5/ 325)) 1 tab Q6H PRN PO MODERATE PAIN LEVEL 4-6; Start 09/05/17 at 21:00 Morphine Sulfate (morphine) 2 mg Q4H PRN IV SEVERE PAIN LEVEL 7-10 Last administered on 09/13/17 02:47; Admin Dose 2 MG; Start 09/05/17 at 21:00 Docusate Sodium (Colace) 100 mg Q12H PRN PO CONSTIPATION; Start 09/05/17 at 21 :00 Magnesium Hydroxide (Milk Of Mag) 30 ml DAILY PRN PO CONSTIPATION; Start 09/05 at 21:00 Famotidine (Pepcid) 20 mg Q12 PO Last administered on 09/21/17 08:34; Admin Dose 20 MG; Start 09/05/17 at 21:00 Albuterol (Proventil 0.083% (Neb)) 2.5 mg Q2 PRN HHN SHORTNESS OF BREATH; Start 09/05/17 at 21:00 Miscellaneous Information 1 ea NOTE XX ; Start 09/05/17 at 21:30 Glucose (Glutose) 15 gm Q15M PRN PO DECREASED GLUCOSE; Start 09/05/17 at 21:30 Glucose (Glutose) 22.5 gm Q15M PRN PO DECREASED GLUCOSE; Start 09/05/17 at 21: 30 Dextrose (D50w Syringe) 25 ml Q15M PRN IV DECREASED GLUCOSE; Start 09/05/17 at 21:30 Dextrose (D50w Syringe) 50 ml Q15M PRN IV DECREASED GLUCOSE; Start 09/05/17 at 21:30 Glucagon (Glucagen) 1 mg Q15M PRN IM DECREASED GLUCOSE; Start 09/05/17 at 21: 30 Glucose (Glutose) 15 gm Q15M PRN BUCCAL DECREASED GLUCOSE; Start 09/05/17 at 21:30 Nystatin (Nystatin Powder) 1 applic BID TOP Last administered on 09/21/17 08: 34; Admin Dose 1 APPLIC; Start 09/06/17 at 09:00 Tamoxifen Citrate 20 mg 20 mg DAILY PO Last administered on 09/21/17 08:36; Admin Dose 20 MG; Start 09/06/17 at 13:00 Ceftriaxone Sodium (Rocephin) 50 ml @ 100 mls/hr Q24H IVPB Last administered on 09/20/17 13:52; Admin Dose 100 MLS/HR; Start 09/08/17 at 14:00 Diagnostic Test (Pha) (Accu-Chek) 1 ea 02 XX Last administered on 09/21/17 02: 07; Admin Dose 1 EA; Start 09/16/17 at 02:00 JUAN MOTLEY Sep 21, 2017 14:08
[2017-09-21] MEDS: CEFTRIAXONE 1 GM/50 ML (PMX) 50 ML IVPB SCH (14:16)
--- NOTE | 2017-09-21 19:10 | PN ---
Date/Time of Note Date/Time of Note DATE: 09/21/17 TIME: 19:09 Assessment/Plan Lines/Catheters IV Catheter Type (from Nrsg): Saline Lock Francois in Place (from Nrsg): No Assessment/Plan Chief Complaint/Hosp Course IMPRESSION: Right loculated pleural effusion. R status post right VATS pleurodesis decortication Patient feels much better Will DC CT Less shortness of breath Check chest x-ray Will continue chest tube suction Problems: Subjective 24 Hr Interval Summary Constitutional: improved Pain Control: mild Exam/Review of Systems Vital Signs Vitals Vital Signs Date Time Temp Pulse Resp B/P Pulse Ox O2 Delivery O2 Flow Rate FiO2 09/21/17 08:00 98.6 58 18 127/69 99 09/19/17 17:30 Room Air Intake and Output 09/20/17 09/20/17 09/21/17 14:59 22:59 06:59 Intake Total 50 ml 700 ml 540 ml Output Total 525 ml 880 ml Balance 50 ml 175 ml -340 ml Exam ENMT: mucosa pink and moist, nl external ears & nose, nl lips & teeth, nl nasal mucosa & septum Neck: non-tender, supple Respiratory: clear to auscultation, normal air movement Cardiovascular: nl pulses, regular rate and rhythm Gastrointestinal: nl liver, spleen, non-tender, soft Results Result Diagram: 09/20/179 09/20/17428 DEVIKA MENA MD Sep 21, 2017 19:09
[2017-09-21 20:11] VITALS: BP 125/77; RESP 18
[2017-09-21] MEDS: DOCUSATE SODIUM 100 MG CAP PO SCH (21:11)
[2017-09-22] MEDS: ACCU-CHEK XX SCH (02:00)
[2017-09-22 02:15] VITALS: BP 133/81; RESP 18
[2017-09-22 07:00] VITALS: BP 133/76; RESP 18
[2017-09-22] MEDS: INSULIN ASPART [NOVOLOG] 3 ML PEN SC SCH ×4 (07:50→21:46)
[2017-09-22] MEDS: FAMOTIDINE 20 MG TAB PO SCH ×2 (08:36→21:41)
[2017-09-22] MEDS: DEXAMETHASONE 4 MG TAB PO SCH ×2 (08:36→21:41)
[2017-09-22] MEDS: TAMOXIFEN 10 MG TAB PO SCH (08:39)
[2017-09-22] MEDS: NYSTATIN 30 GM POWDER BTL TOP SCH ×2 (08:41→21:50)
--- NOTE | 2017-09-22 11:29 | PN ---
Date/Time of Note Date/Time of Note DATE: 09/22/17 TIME: 11:28 Assessment/Plan VTE Prophylaxis VTE Prophylaxis Intervention: ambulation Lines/Catheters IV Catheter Type (from [facility] Saline Lock Urinary Cath still in place: No Assessment/Plan Chief Complaint/Hosp Course Patient is a 39-year-old female with a past medical history of metastatic breast cancer with metastases to the liver and brain who presents from [facility] for malfunctioning Pleurx catheter. 1. Empyema 2/2 staph aureus s/p VATS 09/12/17 - Patient doing well and chest tube still in place and draining serous fluid but output decreasing daily - repeat CXR shows increased sized right-sided pleural effusion. Rounded opacity within the right mid lung likely represents pleural fluid in the major fissure. Increased consolidation or atelectasis within the right lower lobe. - started on incentive spirometry - CT chest showed trace loculated pleural effusion with possible empyema in addition to malignant effusion. - CT surgery on board and appreciate consultation - ID on board and recommendations appreciated. continue on IV antibiotics - Ultrasound-guided thoracentesis performed, cultures showing staph aureus 2. Dysfunctional Pleurx catheter - Pulmonology on board and consultation appreciated - Respiratory status stable at this time 3. Cellulitis, area around catheter- improving - ID on board and recommendations appreciated. Continue on antibiotics 4. Metastatic breast cancer, lung, liver, brain, s/p craniectomy - currently receiving radiation therapy and tamoxifen and Decadron - Heme/onc on board and consultation appreciated - Radiation as scheduled 5. Diabetes mellitus - Currently stable 6. Obesity - Counseled about diet and improving exercise routine when able 7. Disposition - Continue monitoring on med/surg while chest tube in place - will continue with chest tube management, IV abx for 4 weeks total, DC to SNF when chest tube situation finalized and accepting facility that will accommodate travel to and from radiation therapy and heme/onc, Dr. Doan. Problems: Subjective 24 Hr Interval Summary Free Text/Dictation no acute overnight events Exam/Review of Systems Vital Signs Vitals Vital Signs Date Time Temp Pulse Resp B/P Pulse Ox O2 Delivery O2 Flow Rate FiO2 09/22/17 07:00 98.7 87 18 133/76 97 09/19/17 17:30 Room Air Intake and Output 09/21/17 09/21/17 09/22/17 15:00 23:00 07:00 Intake Total 50 ml 1120 ml 820 ml Output Total 130 ml 200 ml Balance 50 ml 990 ml 620 ml Exam General: Patient awake and alert, no acute distress. Head: R side craniectomy site healing well. improving fluctuant edema right side Eyes: EOMI, pupils reactive to light Neck: Supple, nontender, midline Respiratory: diminished air entry with chest tube in place draining slightly pink tinged serous fluid Cardiovascular: regular rate, no obvious murmurs Gastrointestinal: non-tender to palpation, bowel sounds heard. Neurological: Moves all extremities spontaneously Results Result Diagram: 09/20/1742809/20/17428 Results 24 hrs Laboratory Tests Test 09/21/17 11:44 09/21/17 17:57 09/21/17 21:10 09/22/17 08:34 Bedside Glucose 174 150 174 133 Medications Medications Current Medications Dexamethasone (Decadron) 4 mg BID PO Last administered on 09/22/17 08:36; Admin Dose 4 MG; Start 09/05/17 at 21:00 Docusate Sodium (Colace) 200 mg QHS PO Last administered on 09/21/17 21:11; Admin Dose 200 MG; Start 09/05/17 at 21:00 Ondansetron HCl (Zofran Inj) 4 mg Q6H PRN IV NAUSEA AND/OR VOMITING; Start at 21:00 Acetaminophen (Tylenol Tab) 650 mg Q6H PRN PO PAIN LEVEL 1-3 OR FEVER Last administered on 09/13/17 07:13; Admin Dose 650 MG; Start 09/05/17 at 21:00 Oxycodone/ Acetaminophen (Percocet (5/ 325)) 1 tab Q6H PRN PO MODERATE PAIN LEVEL 4-6; Start 09/05/17 at 21:00 Morphine Sulfate (morphine) 2 mg Q4H PRN IV SEVERE PAIN LEVEL 7-10 Last administered on 09/13/17 02:47; Admin Dose 2 MG; Start 09/05/17 at 21:00 Docusate Sodium (Colace) 100 mg Q12H PRN PO CONSTIPATION; Start 09/05/17 at 21 :00 Magnesium Hydroxide (Milk Of Mag) 30 ml DAILY PRN PO CONSTIPATION; Start 09/05 at 21:00 Famotidine (Pepcid) 20 mg Q12 PO Last administered on 09/22/17 08:36; Admin Dose 20 MG; Start 09/05/17 at 21:00 Albuterol (Proventil 0.083% (Neb)) 2.5 mg Q2 PRN HHN SHORTNESS OF BREATH; Start 09/05/17 at 21:00 Miscellaneous Information 1 ea NOTE XX ; Start 09/05/17 at 21:30 Glucose (Glutose) 15 gm Q15M PRN PO DECREASED GLUCOSE; Start 09/05/17 at 21:30 Glucose (Glutose) 22.5 gm Q15M PRN PO DECREASED GLUCOSE; Start 09/05/17 at 21: 30 Dextrose (D50w Syringe) 25 ml Q15M PRN IV DECREASED GLUCOSE; Start 09/05/17 at 21:30 Dextrose (D50w Syringe) 50 ml Q15M PRN IV DECREASED GLUCOSE; Start 09/05/17 at 21:30 Glucagon (Glucagen) 1 mg Q15M PRN IM DECREASED GLUCOSE; Start 09/05/17 at 21: 30 Glucose (Glutose) 15 gm Q15M PRN BUCCAL DECREASED GLUCOSE; Start 09/05/17 at 21:30 Nystatin (Nystatin Powder) 1 applic BID TOP Last administered on 09/21/17 21: 13; Admin Dose 1 APPLIC; Start 09/06/17 at 09:00 Tamoxifen Citrate 20 mg 20 mg DAILY PO Last administered on 09/22/17 08:39; Admin Dose 20 MG; Start 09/06/17 at 13:00 Ceftriaxone Sodium (Rocephin) 50 ml @ 100 mls/hr Q24H IVPB Last administered on 09/21/17 14:16; Admin Dose 100 MLS/HR; Start 09/08/17 at 14:00 Diagnostic Test (Pha) (Accu-Chek) 1 ea 02 XX Last administered on 09/21/17 02: 07; Admin Dose 1 EA; Start 09/16/17 at 02:00 JUAN MOTLEY Sep 22, 2017 11:28
--- NOTE | 2017-09-22 12:37 | CONS ---
Date/Time of Note Date/Time of Note DATE: 09/22/17 TIME: 12:36 Assessment/Plan Assessment/Plan Chief Complaint/Hosp Course SUBJECTIVE: No events overnight. Alert, feels good, no fevers. INDWELLINGS: The patient has a right-sided chest tube. ANTIMICROBIALS: Rocephin. PHYSICAL EXAMINATION: GENERAL: This is an obese, well-developed, middle-aged woman who is awake, in no distress. HEENT: Head atraumatic, normocephalic. Sclerae anicteric. Buccal mucosa dry. NECK: Supple. CHEST: Rise symmetrical. Breath sounds diminished to bases. HEART: S1, S2. ABDOMEN: Soft, bowel tones present. EXTREMITIES: Without cyanosis. ASSESSMENT: 1. Right-sided loculated pleural effusion consistent with empyema with fluid culture growing oxacillin-sensitive Staphylococcus aureus. The patient is status post decortication and pleurodesis on 09/12/2017. 2. Metastatic breast cancer. 3. Diabetes. 4. History of craniectomy for brain metastasis. PLAN: The patient remains stable. Continue abx for total of 4 weeks for empyema. Pulmonary/CTS/oncology rec-s [facility] staff Problems: Consultation Date/Type/Reason Admit Date/Time Sep 05, 2017 at 18:29 Initial Consult Date 09/07/17 Type of Consultation: ID Referring Provider: MINDY NEGRON Exam/Review of Systems Vital Signs Vitals Vital Signs Date Time Temp Pulse Resp B/P Pulse Ox O2 Delivery O2 Flow Rate FiO2 09/22/17 07:00 98.7 87 18 133/76 97 09/19/17 17:30 Room Air Intake and Output 09/21/17 09/21/17 09/22/17 15:00 23:00 07:00 Intake Total 50 ml 1120 ml 820 ml Output Total 130 ml 200 ml Balance 50 ml 990 ml 620 ml Results Result Diagram: 09/20/17 0429 09/20/17 0429 Results 24 hrs Laboratory Tests Test 09/21/17 17:57 09/21/17 21:10 09/22/17 08:34 Bedside Glucose 150 174 133 Medications Medications Current Medications Dexamethasone (Decadron) 4 mg BID PO Last administered on 09/22/17t 08:36; Admin Dose 4 MG; Start 09/05/17 at 21:00 Docusate Sodium (Colace) 200 mg QHS PO Last administered on 09/21/17 21:11; Admin Dose 200 MG; Start 09/05/17 at 21:00 Ondansetron HCl (Zofran Inj) 4 mg Q6H PRN IV NAUSEA AND/OR VOMITING; Start at 21:00 Acetaminophen (Tylenol Tab) 650 mg Q6H PRN PO PAIN LEVEL 1-3 OR FEVER Last administered on 09/13/17 07:13; Admin Dose 650 MG; Start 09/05/17 at 21:00 Oxycodone/ Acetaminophen (Percocet (5/ 325)) 1 tab Q6H PRN PO MODERATE PAIN LEVEL 4-6; Start 09/05/17 at 21:00 Morphine Sulfate (morphine) 2 mg Q4H PRN IV SEVERE PAIN LEVEL 7-10 Last administered on 09/13/17 02:47; Admin Dose 2 MG; Start 09/05/17 at 21:00 Docusate Sodium (Colace) 100 mg Q12H PRN PO CONSTIPATION; Start 09/05/17 at 21 :00 Magnesium Hydroxide (Milk Of Mag) 30 ml DAILY PRN PO CONSTIPATION; Start 09/05 at 21:00 Famotidine (Pepcid) 20 mg Q12 PO Last administered on 09/22/17 08:36; Admin Dose 20 MG; Start 09/05/17 at 21:00 Albuterol (Proventil 0.083% (Neb)) 2.5 mg Q2 PRN HHN SHORTNESS OF BREATH; Start 09/05/17 at 21:00 Miscellaneous Information 1 ea NOTE XX ; Start 09/05/17 at 21:30 Glucose (Glutose) 15 gm Q15M PRN PO DECREASED GLUCOSE; Start 09/05/17 at 21:30 Glucose (Glutose) 22.5 gm Q15M PRN PO DECREASED GLUCOSE; Start 09/05/17 at 21: 30 Dextrose (D50w Syringe) 25 ml Q15M PRN IV DECREASED GLUCOSE; Start 09/05/17 at 21:30 Dextrose (D50w Syringe) 50 ml Q15M PRN IV DECREASED GLUCOSE; Start 09/05/17 at 21:30 Glucagon (Glucagen) 1 mg Q15M PRN IM DECREASED GLUCOSE; Start 09/05/17 at 21: 30 Glucose (Glutose) 15 gm Q15M PRN BUCCAL DECREASED GLUCOSE; Start 09/05/17 at 21:30 Nystatin (Nystatin Powder) 1 applic BID TOP Last administered on 09/21/17 21: 13; Admin Dose 1 APPLIC; Start 09/06/17 at 09:00 Tamoxifen Citrate 20 mg 20 mg DAILY PO Last administered on 09/22/17 08:39; Admin Dose 20 MG; Start 09/06/17 at 13:00 Ceftriaxone Sodium (Rocephin) 50 ml @ 100 mls/hr Q24H IVPB Last administered on 09/21/17 14:16; Admin Dose 100 MLS/HR; Start 09/08/17 at 14:00 Diagnostic Test (Pha) (Accu-Chek) 1 ea 02 XX Last administered on 09/21/17 02: 07; Admin Dose 1 EA; Start 09/16/17 at 02:00 ZULEYMA ALEX NP Sep 22, 2017 12:37
[2017-09-22 14:00] VITALS: BP 125/74; RESP 18
[2017-09-22] MEDS: CEFTRIAXONE 1 GM/50 ML (PMX) 50 ML IVPB SCH (14:07)
--- NOTE | 2017-09-22 16:27 | PN ---
Date/Time of Note Date/Time of Note DATE: 09/22/17 TIME: 16:27 Assessment/Plan Lines/Catheters IV Catheter Type (from [facility] [place] Peripheral IV Francois in Place (from Nrs): No Assessment/Plan Chief Complaint/Hosp Course IMPRESSION: Right loculated pleural effusion. R status post right VATS pleurodesis decortication Patient feels much better will continue CT sxn CT 340 cc Less shortness of breath Check chest x-ray Will continue chest tube suction Problems: Subjective 24 Hr Interval Summary Constitutional: improved Pain Control: mild Exam/Review of Systems Vital Signs Vitals Vital Signs Date Time Temp Pulse Resp B/P Pulse Ox O2 Delivery O2 Flow Rate FiO2 09/22/17 14:00 98.6 80 18 125/74 98 09/19/17 17:30 Room Air Intake and Output 09/21/17 09/21/17 09/22/17 15:00 23:00 07:00 Intake Total 50 ml 1120 ml 820 ml Output Total 130 ml 200 ml Balance 50 ml 990 ml 620 ml Exam ENMT: mucosa pink and moist, nl external ears & nose, nl lips & teeth, nl nasal mucosa & septum Neck: non-tender, supple Respiratory: clear to auscultation, normal air movement Cardiovascular: nl pulses, regular rate and rhythm Results Result Diagram: 09/20/179 09/20/17428 DEVIKA MENA MD Sep 22, 2017 16:27
--- NOTE | 2017-09-22 16:57 | RADRPT ---
PROCEDURE: XR Chest 1 view. CLINICAL INDICATION: Shortness of breath. TECHNIQUE: AP views of the chest were obtained. COMPARISON: DR MAR 09/19/2017 FINDINGS: The heart is large. Calcified atherosclerosis is noted in the aorta. Right mid and lower lung infil trates, combined with small to moderate pleural effusion are stable. Right-sided pleural drain and r ight-sided chest tube are stable. No pneumothorax as visualized. Atelectasis is noted in the left lo wer lobe. Osseous structures are intact. IMPRESSION: Cardiomegaly with calcified atherosclerosis in the aorta. Stable right-sided pleural drain and right-sided chest tube. No visualized pneumothorax. Stable right mid and lower lung infiltrates, combined with small to moderate pleural effusion. Scattered atelectasis in the left lower lobe. RPTAT: AA .Tristan Marroquin MD, Date Time Electronically viewed and signed by .Tristan Marroquin MD, on 09/22/2017 16:56 .P/
[2017-09-22 20:32] VITALS: BP 133/75; RESP 20
[2017-09-22] MEDS: DOCUSATE SODIUM 100 MG CAP PO SCH (21:41)
[2017-09-23] MEDS: ACCU-CHEK XX SCH (02:00)
[2017-09-23 03:21] VITALS: BP 126/67; RESP 18
[2017-09-23 05:44] LABS: ABNORMAL IP MESSAGE 1; BASOPHILS % 0.3 % (0.0-2.0); HEMATOCRIT 31.7 % (37.0-47.0); HEMOGLOBIN 9.8 g/dl (12.0-16.0); LYMPHOCYTES # 1.4 10^3/ul (0.8-2.9); LYMPHOCYTES % 12.6 % (15.0-51.0); MEAN CORPUSCULAR HEMOGLOBIN 24.6 pg (29.0-33.0); MEAN CORPUSCULAR HGB CONC 30.9 g/dl (32.0-37.0); MEAN CORPUSCULAR VOLUME 79.4 fl (82.0-101.0); MEAN PLATELET VOLUME 9.4 fl (7.4-10.4); MONOCYTE # 0.6 10^3/ul (0.3-0.9); MONOCYTES % 5.5 % (0.0-11.0); NEUTROPHIL # 8.7 10^3/ul (1.6-7.5); NEUTROPHILS % 77.7 % (39.0-77.0); PLATELET COUNT 132 10^3/UL (140-415); RED BLOOD COUNT 3.99 10^6/ul (4.20-5.40); RED CELL DISTRIBUTION WIDTH 23.2 % (11.5-14.5); WHITE BLOOD COUNT 11.2 10^3/ul (4.8-10.8)
[2017-09-23 05:59] LABS: POSITIVE DIFF @See below
[2017-09-23 06:24] LABS: CALCIUM 8.1 mg/dl (8.4-10.2); CREATININE 0.45 mg/dl (0.44-1.00); MAGNESIUM 1.7 mg/dl (1.7-2.5); PHOSPHORUS 3.5 mg/dl (2.5-4.9); POTASSIUM 4.1 mmol/L (3.5-5.1)
[2017-09-23 07:36] VITALS: BP 119/79; RESP 18
[2017-09-23] MEDS: INSULIN ASPART [NOVOLOG] 3 ML PEN SC SCH ×4 (07:50→22:00)
[2017-09-23] MEDS: FAMOTIDINE 20 MG TAB PO SCH ×2 (08:53→22:11)
[2017-09-23] MEDS: TAMOXIFEN 10 MG TAB PO SCH (08:56)
[2017-09-23] MEDS: NYSTATIN 30 GM POWDER BTL TOP SCH ×2 (08:58→21:00)
[2017-09-23] MEDS: DEXAMETHASONE 4 MG TAB PO SCH ×2 (08:58→22:10)
--- NOTE | 2017-09-23 09:53 | PN ---
Date/Time of Note Date/Time of Note DATE: 09/23/17 TIME: 09:53 Assessment/Plan VTE Prophylaxis VTE Prophylaxis Intervention: SCD's Lines/Catheters IV [facility]ter [facility]from [facility]): Saline Lock Urinary Cath still in place: No Assessment/Plan Assessment/Plan 1. Empyema 2/2 staph aureus s/p VATS 09/12/17 - Patient doing well and chest tube still in place and draining serous fluid - Per pulm, spoke with CT surgery about changing patient to Dulce drain so can be d/c home - On incentive spirometry - CXR yesterday shows stable b/l pleural effusion - CT surgery on board and appreciate consultation - ID on board and recommendations appreciated. continue on IV antibiotics for 4 weeks - Ultrasound-guided thoracentesis performed, cultures showing staph aureus 2. Dysfunctional Pleurx catheter - Pulmonology on board and consultation appreciated - Respiratory status stable at this time 3. Cellulitis, area around catheter- improved - ID on board and recommendations appreciated 4. Metastatic breast cancer, lung, liver, brain, s/p craniectomy - currently receiving radiation therapy and tamoxifen and Decadron - Heme/onc on board and consultation appreciated - Radiation as scheduled 5. Diabetes mellitus - Currently stable 6. Obesity - Counseled about diet and improving exercise routine when able 7. Disposition - Continue monitoring on med/surg while chest tube in place - will continue with chest tube management, IV abx for 4 weeks total Subjective 24 Hr Interval Summary Free Text/Dictation Patient doing well with no new complaints. Did not receive radiation last night because of timing. No acute overnight events. Anxious to get out of the hospital. Exam/Review of Systems Vital Signs Vitals Vital Signs Date Time Temp Pulse Resp B/P Pulse Ox O2 Delivery O2 Flow Rate FiO2 09/23/17 07:36 98.2 79 18 119/79 97 09/19/17 17:30 Room Air Intake and Output 09/22/17 09/22/17 09/23/17 15:00 23:00 07:00 Intake Total 50 ml 1080 ml 960 ml Output Total 800 ml 1000 ml Balance 50 ml 280 ml -40 ml Exam General: Patient awake and alert, no acute distress. Head: R side craniectomy site healing well. improving fluctuant edema right side Eyes: EOMI, pupils reactive to light Neck: Supple, nontender, midline Respiratory: diminished air entry with chest tube in place draining slightly pink tinged serous fluid Cardiovascular: regular rate, no obvious murmurs Gastrointestinal: non-tender to palpation, bowel sounds heard. Neurological: Moves all extremities spontaneously Results Result Diagram: 09/23/1742409/23/175 Results 24 hrs Laboratory Tests Test 09/22/17 12:42 09/22/17 17:36 09/22/17 21:43 09/23/17 02:53 Bedside Glucose 170 133 232 H 248 H Test 09/23/17 04:25 09/23/17 08:51 White Blood Count 11.2 H Red Blood Count 3.99 L Hemoglobin 9.8 L Hematocrit 31.7 L Mean Corpuscular Volume 79.4 L Mean Corpuscular Hemoglobin 24.6 L Mean Corpuscular Hemoglobin Concent 30.9 L Red Cell Distribution Width 23.2 H Platelet Count 132 L Mean Platelet Volume 9.4 Neutrophils % 77.7 H Lymphocytes % 12.6 L Monocytes % 5.5 Eosinophils % 0.0 Basophils % 0.3 Nucleated Red Blood Cells % 0.0 Neutrophils # 8.7 H Lymphocytes # 1.4 Monocytes # 0.6 Eosinophils # 0.0 Basophils # 0.0 Nucleated Red Blood Cells # 0.0 Sodium Level 136 Potassium Level 4.1 Chloride Level 104 Carbon Dioxide Level 21 Anion Gap 15 Blood Urea Nitrogen 21 H Creatinine 0.45 Glucose Level 201 Calcium Level 8.1 L Phosphorus Level 3.5 Magnesium Level 1.7 Bedside Glucose 126 Medications Medications Current Medications Dexamethasone (Decadron) 4 mg BID PO Last administered on 09/23/17 08:58; Admin Dose 4 MG; Start 09/05/17 at 21:00 Docusate Sodium (Colace) 200 mg QHS PO Last administered on 09/22/17 21:41; Admin Dose 200 MG; Start 09/05/17 at 21:00 Ondansetron HCl (Zofran Inj) 4 mg Q6H PRN IV NAUSEA AND/OR VOMITING; Start at 21:00 Acetaminophen (Tylenol Tab) 650 mg Q6H PRN PO PAIN LEVEL 1-3 OR FEVER Last administered on 09/13/17 07:13; Admin Dose 650 MG; Start 09/05/17 at 21:00 Oxycodone/ Acetaminophen (Percocet (5/ 325)) 1 tab Q6H PRN PO MODERATE PAIN LEVEL 4-6; Start 09/05/17 at 21:00 Morphine Sulfate (morphine) 2 mg Q4H PRN IV SEVERE PAIN LEVEL 7-10 Last administered on 09/13/17 02:47; Admin Dose 2 MG; Start 09/05/17 at 21:00 Docusate Sodium (Colace) 100 mg Q12H PRN PO CONSTIPATION; Start 09/05/17 at 21 :00 Magnesium Hydroxide (Milk Of Mag) 30 ml DAILY PRN PO CONSTIPATION; Start 09/05 at 21:00 Famotidine (Pepcid) 20 mg Q12 PO Last administered on 09/23/17 08:53; Admin Dose 20 MG; Start 09/05/17 at 21:00 Albuterol (Proventil 0.083% (Neb)) 2.5 mg Q2 PRN HHN SHORTNESS OF BREATH; Start 09/05/17 at 21:00 Miscellaneous Information 1 ea NOTE XX ; Start 09/05/17 at 21:30 Glucose (Glutose) 15 gm Q15M PRN PO DECREASED GLUCOSE; Start 09/05/17 at 21:30 Glucose (Glutose) 22.5 gm Q15M PRN PO DECREASED GLUCOSE; Start 09/05/17 at 21: 30 Dextrose (D50w Syringe) 25 ml Q15M PRN IV DECREASED GLUCOSE; Start 09/05/17 at 21:30 Dextrose (D50w Syringe) 50 ml Q15M PRN IV DECREASED GLUCOSE; Start 09/05/17 at 21:30 Glucagon (Glucagen) 1 mg Q15M PRN IM DECREASED GLUCOSE; Start 09/05/17 at 21: 30 Glucose (Glutose) 15 gm Q15M PRN BUCCAL DECREASED GLUCOSE; Start 09/05/17 at 21:30 Nystatin (Nystatin Powder) 1 applic BID TOP Last administered on 09/23/17 08: 58; Admin Dose 1 APPLIC; Start 09/06/17 at 09:00 Tamoxifen Citrate 20 mg 20 mg DAILY PO Last administered on 09/23/17 08:56; Admin Dose 20 MG; Start 09/06/17 at 13:00 Ceftriaxone Sodium (Rocephin) 50 ml @ 100 mls/hr Q24H IVPB Last administered on 09/22/17 14:07; Admin Dose 100 MLS/HR; Start 09/08/17 at 14:00 Diagnostic Test (Pha) (Accu-Chek) 1 ea XX Last administered on 09/21/17t 02: 07; Admin Dose 1 EA; Start 09/16/17 at 02:00 ZEUS TABOR MD Sep 23, 2017 09:53
--- NOTE | 2017-09-23 12:01 | CONS ---
Date/Time of Note Date/Time of Note DATE: 09/23/17 TIME: 11:51 Consult Date/Type/Reason Admit Date/Time Sep 05, 2017 at 18:29 Initial Consult Date 09/06/17 Type of Consultation: Pulm Ordering Provider: MINDY NEGRON Subjective Remains comfortable. Still with moderate output from chest tube. Objective Vital Signs Date Time Temp Pulse Resp B/P Pulse Ox O2 Delivery O2 Flow Rate FiO2 09/23/17 07:36 98.2 79 18 119/79 97 09/19/17 17:30 Room Air Intake and Output 09/22/17 09/22/17 09/23/17 15:00 23:00 07:00 Intake Total 50 ml 1080 ml 960 ml Output Total 800 ml 1000 ml Balance 50 ml 280 ml -40 ml Exam GENERAL: Well-nourished well-developed lady comfortable at rest no acute distress VITAL SIGNS: per chart NECK: Supple. No JVD or lymphadenopathy. CARDIAC EXAM: S1, S2. No added sounds or murmurs. CHEST: Diminished air entry right lung chest tube in place. ABDOMEN: Soft, nontender. No guarding or rebound. EXTREMITIES: No cyanosis, clubbing or edema. NEUROLOGIC: Generalized weakness. No focal deficits. Results/Medications Result Diagram: 09/23/17 0425 09/23/17 0425 Results 24 hrs Laboratory Tests Test 09/22/17 12:42 09/22/17 17:36 09/22/17 21:43 09/23/17 02:53 Bedside Glucose 170 133 232 H 248 H Test 09/23/17 04:25 09/23/17 08:51 White Blood Count 11.2 H Red Blood Count 3.99 L Hemoglobin 9.8 L Hematocrit 31.7 L Mean Corpuscular Volume 79.4 L Mean Corpuscular Hemoglobin 24.6 L Mean Corpuscular Hemoglobin Concent 30.9 L Red Cell Distribution Width 23.2 H Platelet Count 132 L Mean Platelet Volume 9.4 Neutrophils % 77.7 H Lymphocytes % 12.6 L Monocytes % 5.5 Eosinophils % 0.0 Basophils % 0.3 Nucleated Red Blood Cells % 0.0 Neutrophils # 8.7 H Lymphocytes # 1.4 Monocytes # 0.6 Eosinophils # 0.0 Basophils # 0.0 Nucleated Red Blood Cells # 0.0 Sodium Level 136 Potassium Level 4.1 Chloride Level 104 Carbon Dioxide Level 21 Anion Gap 15 Blood Urea Nitrogen 21 H Creatinine 0.45 Glucose Level 201 Calcium Level 8.1 L Phosphorus Level 3.5 Magnesium Level 1.7 Bedside Glucose 126 Medications Current Medications Dexamethasone (Decadron) 4 mg BID PO Last administered on 09/23/17 08:58; Admin Dose 4 MG; Start 09/05/17 at 21:00 Docusate Sodium (Colace) 200 mg QHS PO Last administered on 09/22/17 21:41; Admin Dose 200 MG; Start 09/05/17 at 21:00 Ondansetron HCl (Zofran Inj) 4 mg Q6H PRN IV NAUSEA AND/OR VOMITING; Start at 21:00 Acetaminophen (Tylenol Tab) 650 mg Q6H PRN PO PAIN LEVEL 1-3 OR FEVER Last administered on 09/13/17 07:13; Admin Dose 650 MG; Start 09/05/17 at 21:00 Oxycodone/ Acetaminophen (Percocet (5/ 325)) 1 tab Q6H PRN PO MODERATE PAIN LEVEL 4-6; Start 09/05/17 at 21:00 Morphine Sulfate (morphine) 2 mg Q4H PRN IV SEVERE PAIN LEVEL 7-10 Last administered on 09/13/17 02:47; Admin Dose 2 MG; Start 09/05/17 at 21:00 Docusate Sodium (Colace) 100 mg Q12H PRN PO CONSTIPATION; Start 09/05/17 at 21 :00 Magnesium Hydroxide (Milk Of Mag) 30 ml DAILY PRN PO CONSTIPATION; Start 09/05 at 21:00 Famotidine (Pepcid) 20 mg Q12 PO Last administered on 09/23/17 08:53; Admin Dose 20 MG; Start 09/05/17 at 21:00 Albuterol (Proventil 0.083% (Neb)) 2.5 mg Q2 PRN HHN SHORTNESS OF BREATH; Start 09/05/17 at 21:00 Miscellaneous Information 1 ea NOTE XX ; Start 09/05/17 at 21:30 Glucose (Glutose) 15 gm Q15M PRN PO DECREASED GLUCOSE; Start 09/05/17 at 21:30 Glucose (Glutose) 22.5 gm Q15M PRN PO DECREASED GLUCOSE; Start 09/05/17 at 21: 30 Dextrose (D50w Syringe) 25 ml Q15M PRN IV DECREASED GLUCOSE; Start 09/05/17 at 21:30 Dextrose (D50w Syringe) 50 ml Q15M PRN IV DECREASED GLUCOSE; Start 09/05/17 at 21:30 Glucagon (Glucagen) 1 mg Q15M PRN IM DECREASED GLUCOSE; Start 09/05/17 at 21: 30 Glucose (Glutose) 15 gm Q15M PRN BUCCAL DECREASED GLUCOSE; Start 09/05/17 at 21:30 Nystatin (Nystatin Powder) 1 applic BID TOP Last administered on 09/23/17 08: 58; Admin Dose 1 APPLIC; Start 09/06/17 at 09:00 Tamoxifen Citrate 20 mg 20 mg DAILY PO Last administered on 09/23/17 08:56; Admin Dose 20 MG; Start 09/06/17 at 13:00 Ceftriaxone Sodium (Rocephin) 50 ml @ 100 mls/hr Q24H IVPB Last administered on 09/22/17 14:07; Admin Dose 100 MLS/HR; Start 09/08/17 at 14:00 Diagnostic Test (Pha) (Accu-Chek) 1 ea 02 XX Last administered on 09/21/17 02: 07; Admin Dose 1 EA; Start 09/16/17 at 02:00 Assessment/Plan Chief Complaint/Hosp Course Assessment 1. Metastatic breast cancer with recurrent right pleural effusion. Cultures growing gram-positive cocci consistent with staph aureus. 2. Loculated pleural effusion possible empyema status post decortication and pleurodesis. Still with moderate chest tube output. 3. [employer] metastasis currently receiving steroids and radiation therapy Plan 1. Continue chest tube drainage. Discussed with thoracic surgery will change to Dulce tube so that patient can be discharged home. 2. Continue oncology recommendations continues radiation therapy for [employer] metastasis 3. Antibiotics per primary team Continue radiation therapy Problems: MARTINEZ MASCORRO MD, [facility] Sep 23, 2017 12:01
[2017-09-23 14:35] VITALS: BP 152/74; RESP 20
[2017-09-23] MEDS: CEFTRIAXONE 1 GM/50 ML (PMX) 50 ML IVPB SCH (14:47)
--- NOTE | 2017-09-23 16:54 | CONS ---
Date/Time of Note Date/Time of Note DATE: 09/23/17 TIME: 16:53 Consult Date/Type/Reason Admit Date/Time Sep 05, 2017 at 18:29 Initial Consult Date 09/07/17 Type of Consultation: ID Ordering Provider: MINDY NEGRON Objective Vital Signs Date Time Temp Pulse Resp B/P Pulse Ox O2 Delivery O2 Flow Rate FiO2 09/23/17 14:35 98.2 77 20 152/74 95 09/19/17 17:30 Room Air Intake and Output 09/22/17 09/22/17 09/23/17 15:00 23:00 07:00 Intake Total 50 ml 1080 ml 960 ml Output Total 800 ml 1000 ml Balance 50 ml 280 ml -40 ml Results/Medications Result Diagram: 09/23/17 0425 09/23/17 0425 Results 24 hrs Laboratory Tests Test 09/22/17 17:36 09/22/17 21:43 09/23/17 02:53 09/23/17 04:25 Bedside Glucose 133 232 H 248 H White Blood Count 11.2 H Red Blood Count 3.99 L Hemoglobin 9.8 L Hematocrit 31.7 L Mean Corpuscular Volume 79.4 L Mean Corpuscular Hemoglobin 24.6 L Mean Corpuscular Hemoglobin Concent 30.9 L Red Cell Distribution Width 23.2 H Platelet Count 132 L Mean Platelet Volume 9.4 Neutrophils % 77.7 H Lymphocytes % 12.6 L Monocytes % 5.5 Eosinophils % 0.0 Basophils % 0.3 Nucleated Red Blood Cells % 0.0 Neutrophils # 8.7 H Lymphocytes # 1.4 Monocytes # 0.6 Eosinophils # 0.0 Basophils # 0.0 Nucleated Red Blood Cells # 0.0 Sodium Level 136 Potassium Level 4.1 Chloride Level 104 Carbon Dioxide Level 21 Anion Gap 15 Blood Urea Nitrogen 21 H Creatinine 0.45 Glucose Level 201 Calcium Level 8.1 L Phosphorus Level 3.5 Magnesium Level 1.7 Test 09/23/17 08:51 09/23/17 12:44 Bedside Glucose 126 194 Medications Current Medications Dexamethasone (Decadron) 4 mg BID PO Last administered on 09/23/17 08:58; Admin Dose 4 MG; Start 09/05/17 at 21:00 Docusate Sodium (Colace) 200 mg QHS PO Last administered on 11/10/17at 21:41; Admin Dose 200 MG; Start 09/05/17 at 21:00 Ondansetron HCl (Zofran Inj) 4 mg Q6H PRN IV NAUSEA AND/OR VOMITING; Start at 21:00 Acetaminophen (Tylenol Tab) 650 mg Q6H PRN PO PAIN LEVEL 1-3 OR FEVER Last administered on 09/13/17 07:13; Admin Dose 650 MG; Start 09/05/17 at 21:00 Oxycodone/ Acetaminophen (Percocet (5/ 325)) 1 tab Q6H PRN PO MODERATE PAIN LEVEL 4-6; Start 09/05/17 at 21:00 Morphine Sulfate (morphine) 2 mg Q4H PRN IV SEVERE PAIN LEVEL 7-10 Last administered on 09/13/17 02:47; Admin Dose 2 MG; Start 09/05/17 at 21:00 Docusate Sodium (Colace) 100 mg Q12H PRN PO CONSTIPATION; Start 09/05/17 at 21 :00 Magnesium Hydroxide (Milk Of Mag) 30 ml DAILY PRN PO CONSTIPATION; Start 09/05 at 21:00 Famotidine (Pepcid) 20 mg Q12 PO Last administered on 09/23/17 08:53; Admin Dose 20 MG; Start 09/05/17 at 21:00 Albuterol (Proventil 0.083% (Neb)) 2.5 mg Q2 PRN HHN SHORTNESS OF BREATH; Start 09/05/17 at 21:00 Miscellaneous Information 1 ea NOTE XX ; Start 09/05/17 at 21:30 Glucose (Glutose) 15 gm Q15M PRN PO DECREASED GLUCOSE; Start 09/05/17 at 21:30 Glucose (Glutose) 22.5 gm Q15M PRN PO DECREASED GLUCOSE; Start 09/05/17 at 21: 30 Dextrose (D50w Syringe) 25 ml Q15M PRN IV DECREASED GLUCOSE; Start 09/05/17 at 21:30 Dextrose (D50w Syringe) 50 ml Q15M PRN IV DECREASED GLUCOSE; Start 09/05/17 at 21:30 Glucagon (Glucagen) 1 mg Q15M PRN IM DECREASED GLUCOSE; Start 09/05/17 at 21: 30 Glucose (Glutose) 15 gm Q15M PRN BUCCAL DECREASED GLUCOSE; Start 09/05/17 at 21:30 Nystatin (Nystatin Powder) 1 applic BID TOP Last administered on 09/23/17 08: 58; Admin Dose 1 APPLIC; Start 09/06/17 at 09:00 Tamoxifen Citrate 20 mg 20 mg DAILY PO Last administered on 09/23/17 08:56; Admin Dose 20 MG; Start 09/06/17 at 13:00 Ceftriaxone Sodium (Rocephin) 50 ml @ 100 mls/hr Q24H IVPB Last administered on 09/23/17 14:47; Admin Dose 100 MLS/HR; Start 09/08/17 at 14:00 Diagnostic Test (Pha) (Accu-Chek) 1 ea 02 XX Last administered on 09/21/17 02: 07; Admin Dose 1 EA; Start 09/16/17 at 02:00 Assessment/Plan Chief Complaint/Hosp Course SUBJECTIVE: No events overnight. Alert, feels good, no fevers. INDWELLINGS: Right chest tube. ANTIMICROBIALS: Rocephin. PHYSICAL EXAMINATION: GENERAL: This is an obese, well-developed, middle-aged woman who is awake, in no distress. HEENT: Head atraumatic, normocephalic. Sclerae anicteric. Buccal mucosa dry. NECK: Supple. CHEST: Rise symmetrical. Breath sounds diminished to bases. HEART: S1, S2. ABDOMEN: Soft, bowel tones present. EXTREMITIES: Without cyanosis. ASSESSMENT: 1. Right-sided loculated pleural effusion consistent with empyema with fluid culture growing oxacillin-sensitive Staphylococcus aureus. The patient is status post decortication and pleurodesis on 09/12/2017. 2. Metastatic breast cancer. 3. Diabetes. 4. History of craniectomy for brain metastasis. PLAN: The patient remains stable. Continue abx for total of 4 weeks for empyema. Pulmonary/CTS/oncology rec-s [facility] staff Problems: ZULEYMA ALEX NP Sep 23, 2017 16:54
[2017-09-23 20:00] VITALS: BP 122/72; RESP 19
--- NOTE | 2017-09-23 20:17 | PN ---
Date/Time of Note Date/Time of Note DATE: 09/23/17 TIME: 20:17 Assessment/Plan Lines/Catheters IV Catheter Type (from Nrs): Saline Lock Francois in Place (from Nrs): No Assessment/Plan Chief Complaint/Hosp Course IMPRESSION: Right loculated pleural effusion. R status post right VATS pleurodesis decortication Patient feels much better One CT DCec Check chest x-ray Problems: Subjective 24 Hr Interval Summary Constitutional: improved Pain Control: mild Exam/Review of Systems Vital Signs Vitals Vital Signs Date Time Temp Pulse Resp B/P Pulse Ox O2 Delivery O2 Flow Rate FiO2 09/23/17 14:35 98.2 77 20 152/74 95 09/19/17 17:30 Room Air Intake and Output 09/22/17 09/22/17 09/23/17 14:59 22:59 06:59 Intake Total 50 ml 1080 ml 960 ml Output Total 800 ml 1000 ml Balance 50 ml 280 ml -40 ml Results Result Diagram: 09/23/17 0425 09/23/17 0425 DEVIKA MENA MD Sep 23, 2017 20:17
[2017-09-23] MEDS: DOCUSATE SODIUM 100 MG CAP PO SCH (21:00)
[2017-09-23] MEDS ORDERED: ZOLPIDEM 5 MG TAB PO PRN (21:30)
[2017-09-24] MEDS: ACCU-CHEK XX SCH (02:00)
[2017-09-24 02:15] VITALS: BP 115/70; RESP 19
[2017-09-24 05:13] LABS: ABNORMAL IP MESSAGE 1; BASOPHILS % 0.3 % (0.0-2.0); HEMATOCRIT 32.5 % (37.0-47.0); HEMOGLOBIN 10.1 g/dl (12.0-16.0); LYMPHOCYTES # 1.6 10^3/ul (0.8-2.9); LYMPHOCYTES % 12.4 % (15.0-51.0); MEAN CORPUSCULAR HEMOGLOBIN 24.6 pg (29.0-33.0); MEAN CORPUSCULAR HGB CONC 31.1 g/dl (32.0-37.0); MEAN CORPUSCULAR VOLUME 79.1 fl (82.0-101.0); MEAN PLATELET VOLUME 9.1 fl (7.4-10.4); MONOCYTE # 0.7 10^3/ul (0.3-0.9); MONOCYTES % 5.4 % (0.0-11.0); NEUTROPHIL # 10.2 10^3/ul (1.6-7.5); NEUTROPHILS % 77.9 % (39.0-77.0); PLATELET COUNT 134 10^3/UL (140-415); RED BLOOD COUNT 4.11 10^6/ul (4.20-5.40); RED CELL DISTRIBUTION WIDTH 23.1 % (11.5-14.5); WHITE BLOOD COUNT 13.1 10^3/ul (4.8-10.8)
[2017-09-24 05:21] LABS: POSITIVE DIFF @See below
[2017-09-24 08:08] VITALS: BP 123/79; RESP 20
[2017-09-24] MEDS: INSULIN ASPART [NOVOLOG] 3 ML PEN SC SCH ×4 (08:40→21:00)
[2017-09-24] MEDS: NYSTATIN 30 GM POWDER BTL TOP SCH ×2 (09:00→22:13)
[2017-09-24] MEDS: FAMOTIDINE 20 MG TAB PO SCH ×2 (09:34→22:05)
[2017-09-24] MEDS: DEXAMETHASONE 4 MG TAB PO SCH ×2 (09:34→22:05)
[2017-09-24] MEDS: TAMOXIFEN 10 MG TAB PO SCH (09:35)
--- NOTE | 2017-09-24 11:10 | PN ---
Date/Time of Note Date/Time of Note DATE: 09/24/17 TIME: 11:10 Assessment/Plan VTE Prophylaxis VTE Prophylaxis Intervention: SCD's Lines/Catheters IV [facility]from [facility] Saline Lock Urinary Cath still in place: No Assessment/Plan Assessment/Plan 1. Empyema 2/2 staph aureus s/p VATS 09/12/17 - Patient doing well and chest tube still in place and draining serous fluid - Per pulm, spoke with CT surgery about changing patient to Dulce drain so can be d/c home - One chest tube has been removed and patient feeling more comfortably. Repeat CXR shows stable consolidation and partially loculated effusion in the right lower lung. - On incentive spirometry - CT surgery on board and appreciate consultation - ID on board and recommendations appreciated. continue on IV antibiotics for 4 weeks (on day 18) - Ultrasound-guided thoracentesis performed, cultures showing staph aureus 2. Dysfunctional Pleurx catheter - Pulmonology on board and consultation appreciated - Respiratory status stable at this time 3. Cellulitis, area around catheter- improved - ID on board and recommendations appreciated 4. Metastatic breast cancer, lung, liver, brain, s/p craniectomy - currently receiving radiation therapy and tamoxifen and Decadron - Heme/onc on board and consultation appreciated - Radiation as scheduled 5. Diabetes mellitus - Currently stable 6. Obesity - Counseled about diet and improving exercise routine when able 7. Disposition - Continue monitoring on med/surg while chest tube in place - patient planning to return home and requesting home health services be continued - Will need IV antibiotics (on day ) Subjective 24 Hr Interval Summary Free Text/Dictation Patient doing well and feeling more comfortable after removal of one chest tube. Denies any respiratory issues and saturating 100% on RA. No acute overnight events. Exam/Review of Systems Vital Signs Vitals Vital Signs Date Time Temp Pulse Resp B/P Pulse Ox O2 Delivery O2 Flow Rate FiO2 09/24/17 08:08 98.6 67 20 123/79 96 Intake and Output 09/23/17 09/23/17 09/24/17 15:00 23:00 07:00 Intake Total 1050 ml 1000 ml Output Total 300 ml 1200 ml Balance 750 ml -200 ml Exam General: Patient awake and alert, no acute distress. Head: R side craniectomy site healing well. improving fluctuant edema right side Eyes: EOMI, pupils reactive to light Neck: Supple, nontender, midline Respiratory: diminished air entry with [address] Cardiovascular: regular rate, no obvious murmurs Gastrointestinal: non-tender to palpation, bowel sounds heard. Neurological: Moves all extremities spontaneously Results Result Diagram: 09/24/170 09/23/17 0425 Results 24 hrs Laboratory Tests Test 09/23/17 12:44 09/23/17 17:30 09/23/17 22:09 09/24/17 04:20 Bedside Glucose 194 290 H 180 White Blood Count 13.1 H Red Blood Count 4.11 L Hemoglobin 10.1 L Hematocrit 32.5 L Mean Corpuscular Volume 79.1 L Mean Corpuscular Hemoglobin 24.6 L Mean Corpuscular Hemoglobin Concent 31.1 L Red Cell Distribution Width 23.1 H Platelet Count 134 L Mean Platelet Volume 9.1 Neutrophils % 77.9 H Lymphocytes % 12.4 L Monocytes % 5.4 Eosinophils % 0.0 Basophils % 0.3 Nucleated Red Blood Cells % 0.0 Neutrophils # 10.2 H Lymphocytes # 1.6 Monocytes # 0.7 Eosinophils # 0.0 Basophils # 0.0 Nucleated Red Blood Cells # 0.0 Test 09/24/17 08:35 Bedside Glucose 105 Medications Medications Current Medications Dexamethasone (Decadron) 4 mg BID PO Last administered on 09/24/17 09:34; Admin Dose 4 MG; Start 09/05/17 at 21:00 Docusate Sodium (Colace) 200 mg QHS PO Last administered on 09/22/17 21:41; Admin Dose 200 MG; Start 09/05/17 at 21:00 Ondansetron HCl (Zofran Inj) 4 mg Q6H PRN IV NAUSEA AND/OR VOMITING; Start at 21:00 Acetaminophen (Tylenol Tab) 650 mg Q6H PRN PO PAIN LEVEL 1-3 OR FEVER Last administered on 09/13/17 07:13; Admin Dose 650 MG; Start 09/05/17 at 21:00 Oxycodone/ Acetaminophen (Percocet (5/ 325)) 1 tab Q6H PRN PO MODERATE PAIN LEVEL 4-6; Start 09/05/17 at 21:00 Morphine Sulfate (morphine) 2 mg Q4H PRN IV SEVERE PAIN LEVEL 7-10 Last administered on 09/13/17 02:47; Admin Dose 2 MG; Start 09/05/17 at 21:00 Docusate Sodium (Colace) 100 mg Q12H PRN PO CONSTIPATION Last administered on 09/23/17 22:10; Admin Dose 100 MG; Start 09/05/17 at 21:00 Magnesium Hydroxide (Milk Of Mag) 30 ml DAILY PRN PO CONSTIPATION; Start 09/05 at 21:00 Famotidine (Pepcid) 20 mg Q12 PO Last administered on 09/24/17 09:34; Admin Dose 20 MG; Start 09/05/17 at 21:00 Albuterol (Proventil 0.083% (Neb)) 2.5 mg Q2 PRN HHN SHORTNESS OF BREATH; Start 09/05/17 at 21:00 Miscellaneous Information 1 ea NOTE XX ; Start 09/05/17 at 21:30 Glucose (Glutose) 15 gm Q15M PRN PO DECREASED GLUCOSE; Start 09/05/17 at 21:30 Glucose (Glutose) 22.5 gm Q15M PRN PO DECREASED GLUCOSE; Start 09/05/17 at 21: 30 Dextrose (D50w Syringe) 25 ml Q15M PRN IV DECREASED GLUCOSE; Start 09/05/17 at 21:30 Dextrose (D50w Syringe) 50 ml Q15M PRN IV DECREASED GLUCOSE; Start 09/05/17 at 21:30 Glucagon (Glucagen) 1 mg Q15M PRN IM DECREASED GLUCOSE; Start 09/05/17 at 21: 30 Glucose (Glutose) 15 gm Q15M PRN BUCCAL DECREASED GLUCOSE; Start 09/05/17 at 21:30 Nystatin (Nystatin Powder) 1 applic BID TOP Last administered on 09/23/17 21: 00; Admin Dose 1 APPLIC; Start 09/06/17 at 09:00 Tamoxifen Citrate 20 mg 20 mg DAILY PO Last administered on 09/24/17 09:35; Admin Dose 20 MG; Start 09/06/17 at 13:00 Ceftriaxone Sodium (Rocephin) 50 ml @ 100 mls/hr Q24H IVPB Last administered on 09/23/17 14:47; Admin Dose 100 MLS/HR; Start 09/08/17 at 14:00 Diagnostic Test (Pha) (Accu-Chek) 1 ea 02 XX Last administered on 09/21/17t 02: 07; Admin Dose 1 EA; Start 09/16/17 at 02:00 ZEUS TABOR MD Sep 24, 2017 11:10
--- NOTE | 2017-09-24 12:52 | CONS ---
Date/Time of Note Date/Time of Note DATE: 09/24/17 TIME: 12:51 Consult Date/Type/Reason Admit Date/Time Sep 05, 2017 at 18:29 Initial Consult Date 09/06/17 Type of Consultation: Pulmonary Ordering Provider: MINDY NEGRON Subjective Still has moderate drainage from chest tube. No chest pain no shortness of breath. Objective Vital Signs Date Time Temp Pulse Resp B/P Pulse Ox O2 Delivery O2 Flow Rate FiO2 09/24/17 08:08 98.6 67 20 123/79 96 Intake and Output 09/23/17 09/23/17 09/24/17 15:00 23:00 07:00 Intake Total 1050 ml 1000 ml Output Total 300 ml 1200 ml Balance 750 ml -200 ml Exam GENERAL: Well-nourished well-developed lady comfortable at rest no acute distress VITAL SIGNS: per chart NECK: Supple. No JVD or lymphadenopathy. CARDIAC EXAM: S1, S2. No added sounds or murmurs. CHEST: Diminished air entry right lung chest tube in place. ABDOMEN: Soft, nontender. No guarding or rebound. EXTREMITIES: No cyanosis, clubbing or edema. NEUROLOGIC: Generalized weakness. No focal deficits. Results/Medications Result Diagram: 09/24/17 0420 09/23/17 0425 Results 24 hrs Laboratory Tests Test 09/23/17 17:30 09/23/17 22:09 09/24/17 04:20 09/24/17 08:35 Bedside Glucose 290 H 180 105 White Blood Count 13.1 H Red Blood Count 4.11 L Hemoglobin 10.1 L Hematocrit 32.5 L Mean Corpuscular Volume 79.1 L Mean Corpuscular Hemoglobin 24.6 L Mean Corpuscular Hemoglobin Concent 31.1 L Red Cell Distribution Width 23.1 H Platelet Count 134 L Mean Platelet Volume 9.1 Neutrophils % 77.9 H Lymphocytes % 12.4 L Monocytes % 5.4 Eosinophils % 0.0 Basophils % 0.3 Nucleated Red Blood Cells % 0.0 Neutrophils # 10.2 H Lymphocytes # 1.6 Monocytes # 0.7 Eosinophils # 0.0 Basophils # 0.0 Nucleated Red Blood Cells # 0.0 Test 09/24/17 12:33 Bedside Glucose 141 Medications Current Medications Dexamethasone (Decadron) 4 mg BID PO Last administered on 09/24/17t 09:34; Admin Dose 4 MG; Start 09/05/17 at 21:00 Docusate Sodium (Colace) 200 mg QHS PO Last administered on 09/22/17 21:41; Admin Dose 200 MG; Start 09/05/17 at 21:00 Ondansetron HCl (Zofran Inj) 4 mg Q6H PRN IV NAUSEA AND/OR VOMITING; Start at 21:00 Acetaminophen (Tylenol Tab) 650 mg Q6H PRN PO PAIN LEVEL 1-3 OR FEVER Last administered on 09/13/17 07:13; Admin Dose 650 MG; Start 09/05/17 at 21:00 Oxycodone/ Acetaminophen (Percocet (5/ 325)) 1 tab Q6H PRN PO MODERATE PAIN LEVEL 4-6; Start 09/05/17 at 21:00 Morphine Sulfate (morphine) 2 mg Q4H PRN IV SEVERE PAIN LEVEL 7-10 Last administered on 09/13/17 02:47; Admin Dose 2 MG; Start 09/05/17 at 21:00 Docusate Sodium (Colace) 100 mg Q12H PRN PO CONSTIPATION Last administered on 09/23/17 22:10; Admin Dose 100 MG; Start 09/05/17 at 21:00 Magnesium Hydroxide (Milk Of Mag) 30 ml DAILY PRN PO CONSTIPATION; Start 09/05 at 21:00 Famotidine (Pepcid) 20 mg Q12 PO Last administered on 09/24/17 09:34; Admin Dose 20 MG; Start 09/05/17 at 21:00 Albuterol (Proventil 0.083% (Neb)) 2.5 mg Q2 PRN HHN SHORTNESS OF BREATH; Start 09/05/17 at 21:00 Miscellaneous Information 1 ea NOTE XX ; Start 09/05/17 at 21:30 Glucose (Glutose) 15 gm Q15M PRN PO DECREASED GLUCOSE; Start 09/05/17 at 21:30 Glucose (Glutose) 22.5 gm Q15M PRN PO DECREASED GLUCOSE; Start 09/05/17 at 21: 30 Dextrose (D50w Syringe) 25 ml Q15M PRN IV DECREASED GLUCOSE; Start 09/05/17 at 21:30 Dextrose (D50w Syringe) 50 ml Q15M PRN IV DECREASED GLUCOSE; Start 09/05/17 at 21:30 Glucagon (Glucagen) 1 mg Q15M PRN IM DECREASED GLUCOSE; Start 09/05/17 at 21: 30 Glucose (Glutose) 15 gm Q15M PRN BUCCAL DECREASED GLUCOSE; Start 09/05/17 at 21:30 Nystatin (Nystatin Powder) 1 applic BID TOP Last administered on 09/23/17 21: 00; Admin Dose 1 APPLIC; Start 09/06/17 at 09:00 Tamoxifen Citrate 20 mg 20 mg DAILY PO Last administered on 09/24/17 09:35; Admin Dose 20 MG; Start 09/06/17 at 13:00 Ceftriaxone Sodium (Rocephin) 50 ml @ 100 mls/hr Q24H IVPB Last administered on 09/23/17 14:47; Admin Dose 100 MLS/HR; Start 09/08/17 at 14:00 Diagnostic Test (Pha) (Accu-Chek) 1 ea 02 XX Last administered on 09/21/17 02: 07; Admin Dose 1 EA; Start 09/16/17 at 02:00 Assessment/Plan Chief Complaint/Hosp Course Assessment 1. Metastatic breast cancer with recurrent right pleural effusion. Cultures growing gram-positive cocci consistent with staph aureus. 2. Loculated pleural effusion possible empyema status post decortication and pleurodesis. Still with moderate chest tube output. 3. CURRICULUM DESIGNER metastasis currently receiving steroids and radiation therapy Plan 1. Continue chest tube drainage. Discussed with thoracic surgery will change to Dulce tube so that patient can be discharged home. 2. Continue oncology recommendations continues radiation therapy for CURRICULUM DESIGNER metastasis 3. Leukocytosis likely secondary to dexamethasone. Continue radiation therapy Discharge planning. Problems: MARTINEZ MASCORRO MD, [facility] Sep 24, 2017 12:52
--- NOTE | 2017-09-24 13:14 | RADRPT ---
PROCEDURE: XR Chest. CLINICAL INDICATION: Pleural effusions. Dyspnea. TECHNIQUE: Single frontal chest x-ray. COMPARISON: 09/22/2017 FINDINGS: Consolidation with partial loculated effusion in the right lower lung is stable. Coiled chest tube/P leurx catheter in the right lung base is stable. A second chest tube seen previously has been remove d. There is no pneumothorax. Minimal underlying vascular congestion is seen within the lungs, stabl e. The heart size is mildly enlarged and the mediastinal silhouette is unremarkable. No other acute changes are present. The osseous structures are unremarkable. IMPRESSION: 1. Stable consolidation and partially loculated effusion in the right lower lung. 2. Removal of one of the right-sided chest tube seen previously, without pneumothorax. 3. Single remaining chest tube in place coiled within the right lung base, stable. 4. Cardiomegaly with minimal central vascular congestion, stable over time. RPTAT: PP .Derrek Milan MD, MD Date Time Electronically viewed and signed by .Derrek Milan MD, on 09/24/2017 13:14 .B/
[2017-09-24] MEDS: CEFTRIAXONE 1 GM/50 ML (PMX) 50 ML IVPB SCH (14:46)
[2017-09-24 15:23] VITALS: BP 148/89; RESP 20
--- NOTE | 2017-09-24 15:24 | CONS ---
Date/Time of Note Date/Time of Note DATE: 09/24/17 TIME: 15:17 Consultation Date/Type/Reason Admit Date/Time Sep 05, 2017 at 18:29 Initial Consult Date SUBJECTIVE: 47 y/o female with Empyema 2/2 staph aureus s/p VATS 09/12/17. Metastatic breast CA. No events overnight. The patient is alert, looks comfortable. Denies fever, chest pain or SOB. VS: 123/79 P:67 R:20 T:98.6 SO2:96% LABS: WBC- 13.1 H&H: 10.1/32.5 CXR 09/24/17: 1.Stable consolidation and partially loculated effusion in the right lower lung. 2. Removal of one of the right-sided chest tube seen previously, without pneumothorax. 3. Single remaining chest tube in place coiled within the right lung base, stable. 4. Cardiomegaly with minimal central vascular congestion, stable over time. Pleural fluid culture on admission grew oxacillin-sensitive Staphylococcus aureus. ANTIMICROBIALS: The patient is on IV Rocephin. INDWELLINGS: Right chest tube. PHYSICAL EXAMINATION: GENERAL: This is an obese, well-developed, middle-aged woman who is alert, in no distress. HEENT: Head atraumatic, normocephalic. Sclerae anicteric. Buccal mucosa dry. NECK: Supple. CHEST: Rise symmetrical. Breath sounds diminished to bases. HEART: S1, S2. ABDOMEN: Soft, bowel tones present. EXTREMITIES: Without cyanosis. ASSESSMENT: 1. Loculated right pleural effusion status post biopsy with pleurocentesis. 2. Metastatic breast cancer. 3. Diabetes. 4. Obesity. 5. History of craniectomy for brain metastases. 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 Continue IV Rocephin x4 wks. Type of Consultation: ID Referring Provider: MINDY NEGRON Exam/Review of Systems Vital Signs Vitals Vital Signs Date Time Temp Pulse Resp B/P Pulse Ox O2 Delivery O2 Flow Rate FiO2 09/24/17 08:08 98.6 67 20 123/79 96 Intake and Output 09/23/17 09/23/17 09/24/17 15:00 23:00 07:00 Intake Total 1050 ml 1000 ml Output Total 300 ml 1200 ml Balance 750 ml -200 ml Results Result Diagram: 09/24/17 0420 09/23/17 0425 Results 24 hrs Laboratory Tests Test 09/23/17 17:30 09/23/17 22:09 09/24/17 04:20 09/24/17 08:35 Bedside Glucose 290 H 180 105 White Blood Count 13.1 H Red Blood Count 4.11 L Hemoglobin 10.1 L Hematocrit 32.5 L Mean Corpuscular Volume 79.1 L Mean Corpuscular Hemoglobin 24.6 L Mean Corpuscular Hemoglobin Concent 31.1 L Red Cell Distribution Width 23.1 H Platelet Count 134 L Mean Platelet Volume 9.1 Neutrophils % 77.9 H Lymphocytes % 12.4 L Monocytes % 5.4 Eosinophils % 0.0 Basophils % 0.3 Nucleated Red Blood Cells % 0.0 Neutrophils # 10.2 H Lymphocytes # 1.6 Monocytes # 0.7 Eosinophils # 0.0 Basophils # 0.0 Nucleated Red Blood Cells # 0.0 Test 09/24/17 12:33 Bedside Glucose 141 Medications Medications Current Medications Dexamethasone (Decadron) 4 mg BID PO Last administered on 09/24/17 09:34; Admin Dose 4 MG; Start 09/05/17 at 21:00 Docusate Sodium (Colace) 200 mg QHS PO Last administered on 09/22/17 21:41; Admin Dose 200 MG; Start 09/05/17 at 21:00 Ondansetron HCl (Zofran Inj) 4 mg Q6H PRN IV NAUSEA AND/OR VOMITING; Start at 21:00 Acetaminophen (Tylenol Tab) 650 mg Q6H PRN PO PAIN LEVEL 1-3 OR FEVER Last administered on 09/13/17 07:13; Admin Dose 650 MG; Start 09/05/17 at 21:00 Oxycodone/ Acetaminophen (Percocet (5/ 325)) 1 tab Q6H PRN PO MODERATE PAIN LEVEL 4-6; Start 09/05/17 at 21:00 Morphine Sulfate (morphine) 2 mg Q4H PRN IV SEVERE PAIN LEVEL 7-10 Last administered on 09/13/17 02:47; Admin Dose 2 MG; Start 09/05/17 at 21:00 Docusate Sodium (Colace) 100 mg Q12H PRN PO CONSTIPATION Last administered on 11/11/17at 22:10; Admin Dose 100 MG; Start 09/05/17 at 21:00 Magnesium Hydroxide (Milk Of Mag) 30 ml DAILY PRN PO CONSTIPATION; Start 09/05 at 21:00 Famotidine (Pepcid) 20 mg Q12 PO Last administered on 09/24/17 09:34; Admin Dose 20 MG; Start 09/05/17 at 21:00 Albuterol (Proventil 0.083% (Neb)) 2.5 mg Q2 PRN HHN SHORTNESS OF BREATH; Start 09/05/17 at 21:00 Miscellaneous Information 1 ea NOTE XX ; Start 09/05/17 at 21:30 Glucose (Glutose) 15 gm Q15M PRN PO DECREASED GLUCOSE; Start 09/05/17 at 21:30 Glucose (Glutose) 22.5 gm Q15M PRN PO DECREASED GLUCOSE; Start 09/05/17 at 21: 30 Dextrose (D50w Syringe) 25 ml Q15M PRN IV DECREASED GLUCOSE; Start 09/05/17 at 21:30 Dextrose (D50w Syringe) 50 ml Q15M PRN IV DECREASED GLUCOSE; Start 09/05/17 at 21:30 Glucagon (Glucagen) 1 mg Q15M PRN IM DECREASED GLUCOSE; Start 09/05/17 at 21: 30 Glucose (Glutose) 15 gm Q15M PRN BUCCAL DECREASED GLUCOSE; Start 09/05/17 at 21:30 Nystatin (Nystatin Powder) 1 applic BID TOP Last administered on 09/23/17 21: 00; Admin Dose 1 APPLIC; Start 09/06/17 at 09:00 Tamoxifen Citrate 20 mg 20 mg DAILY PO Last administered on 09/24/17 09:35; Admin Dose 20 MG; Start 09/06/17 at 13:00 Ceftriaxone Sodium (Rocephin) 50 ml @ 100 mls/hr Q24H IVPB Last administered on 09/24/17 14:46; Admin Dose 100 MLS/HR; Start 09/08/17 at 14:00 Diagnostic Test (Pha) (Accu-Chek) 1 ea 02 XX Last administered on 09/21/17 02: 07; Admin Dose 1 EA; Start 09/16/17 at 02:00 ROSALBA SHARP Sep 24, 2017 15:24
--- NOTE | 2017-09-24 18:39 | PN ---
Date/Time of Note Date/Time of Note DATE: 09/24/17 TIME: 18:38 Assessment/Plan Lines/Catheters IV Catheter Type (from Nrsg): Saline Lock Francois in Place (from Nrsg): No Assessment/Plan Chief Complaint/Hosp Course IMPRESSION: Right loculated pleural effusion. R status post right VATS pleurodesis decortication Patient feels much better CT DCed SARBJIT 150 cc pt may go home with SARBJIT Check chest x-ray Problems: Subjective 24 Hr Interval Summary Constitutional: improved Pain Control: mild Exam/Review of Systems Vital Signs Vitals Vital Signs Date Time Temp Pulse Resp B/P Pulse Ox O2 Delivery O2 Flow Rate FiO2 09/24/17 15:23 98.6 93 20 148/89 93 Intake and Output 09/23/17 09/23/17 09/24/17 15:00 23:00 07:00 Intake Total 1050 ml 1000 ml Output Total 300 ml 1200 ml Balance 750 ml -200 ml Exam ENMT: mucosa pink and moist, nl external ears & nose, nl lips & teeth, nl nasal mucosa & septum Neck: non-tender, supple Respiratory: clear to auscultation, normal air movement, No congested cough, No crackles/rales, No diminished breath sounds, No intercostal retraction, No labored breathing, No other, No respirations, No tactile fremitus, No wheezing Cardiovascular: nl pulses, regular rate and rhythm Gastrointestinal: nl liver, spleen, non-tender, soft Results Result Diagram: 09/24/170 09/23/17 0425 DEVIKA MENA MD Sep 24, 2017 18:39
[2017-09-24 19:44] VITALS: BP 132/73; RESP 18
[2017-09-24] MEDS: DOCUSATE SODIUM 100 MG CAP PO SCH (22:04)
[2017-09-25] MEDS: ACCU-CHEK XX SCH (01:54)
[2017-09-25 02:39] VITALS: BP 144/74; RESP 18
[2017-09-25 05:14] LABS: ABNORMAL IP MESSAGE 1; BASOPHILS % 0.2 % (0.0-2.0); HEMATOCRIT 32.6 % (37.0-47.0); HEMOGLOBIN 10.1 g/dl (12.0-16.0); LYMPHOCYTES # 1.5 10^3/ul (0.8-2.9); LYMPHOCYTES % 12.3 % (15.0-51.0); MEAN CORPUSCULAR HEMOGLOBIN 24.8 pg (29.0-33.0); MEAN CORPUSCULAR VOLUME 80.1 fl (82.0-101.0); MEAN PLATELET VOLUME 8.8 fl (7.4-10.4); MONOCYTE # 0.7 10^3/ul (0.3-0.9); MONOCYTES % 5.7 % (0.0-11.0); NEUTROPHIL # 9.5 10^3/ul (1.6-7.5); NEUTROPHILS % 76.9 % (39.0-77.0); PLATELET COUNT 137 10^3/UL (140-415); RED BLOOD COUNT 4.07 10^6/ul (4.20-5.40); RED CELL DISTRIBUTION WIDTH 23.2 % (11.5-14.5); WHITE BLOOD COUNT 12.4 10^3/ul (4.8-10.8)
[2017-09-25 05:19] LABS: POSITIVE DIFF @See below
[2017-09-25 05:29] LABS: ALBUMIN 2.6 g/dl (3.3-4.9); CALCIUM 8.4 mg/dl (8.4-10.2); CREATININE 0.41 mg/dl (0.44-1.00); MAGNESIUM 1.8 mg/dl (1.7-2.5); PHOSPHORUS 3.7 mg/dl (2.5-4.9); POTASSIUM 4.3 mmol/L (3.5-5.1)
[2017-09-25] MEDS: INSULIN ASPART [NOVOLOG] 3 ML PEN SC SCH ×4 (08:30→21:47)
[2017-09-25 08:31] VITALS: BP 116/78; PULSE 75; RESP 22
--- NOTE | 2017-09-25 09:16 | CONS ---
Date/Time of Note Date/Time of Note DATE: 09/25/17 TIME: 09:11 Assessment/Plan Assessment/Plan Chief Complaint/Hosp Course #Her2+/ER+/NE+ metastatic breast ca -pt is non compliant and when she receives therapy, she is quite responsive to therapy -therefore at this time, although she has terminal disease, there are still many more treatment options which she could benefit from -given her Brain mets, I would consider a combination of Xeloda and Lapatinib which can penetrate the blood brain barrier. tentative plan to start next monday upon completion of radiation -continue Tamoxifen as well #Pleural Effusion with superimposed infection -pt is s/p decortication and pleurodesis -chest tube with considerable serosanguineous drainage -continue antibiotics given + Staph superinfection infection -appreciate pulmonary recs #Brain Mets -pt is s/p resection -pt needs to continue with WBRT with Dr. Ybarra. to proceed with radiation today Problems: Consultation Date/Type/Reason Admit Date/Time Sep 05, 2017 at 18:29 Initial Consult Date 09/07/17 Type of Consultation: Oncology Reason for Consultation metastatic breast cancer Referring Provider: MINDY NEGRON 24 HR Interval Summary Free Text/Dictation Chest tube is draining less. SOB has improved. continues on radiation Exam/Review of Systems Vital Signs Vitals Vital Signs Date Time Temp Pulse Resp B/P Pulse Ox O2 Delivery O2 Flow Rate FiO2 09/25/17 08:31 98.6 75 22 116/78 98 Room Air Intake and Output 09/24/17 09/24/17 09/25/17 15:00 23:00 07:00 Intake Total 750 ml 500 ml Output Total 70 ml 70 ml Balance 680 ml 430 ml Exam Constitutional: alert, oriented Psych: no complaints Head: atraumatic, normocephalic Eyes: nl conjunctiva ENMT: nl external ears & nose Neck: non-tender, supple Respiratory: diminished breath sounds, other (chest tube in place, draining less) Cardiovascular: regular rate and rhythm Gastrointestinal: soft Results Result Diagram: 09/25/17 0446 09/25/17 0447 Results 24 hrs Laboratory Tests Test 09/24/17 12:33 09/24/17 17:44 09/24/17 22:07 09/25/17 04:46 Bedside Glucose 141 232 H 162 White Blood Count 12.4 H Red Blood Count 4.07 L Hemoglobin 10.1 L Hematocrit 32.6 L Mean Corpuscular Volume 80.1 L Mean Corpuscular Hemoglobin 24.8 L Mean Corpuscular Hemoglobin Concent 31.0 L Red Cell Distribution Width 23.2 H Platelet Count 137 L Mean Platelet Volume 8.8 Neutrophils % 76.9 Lymphocytes % 12.3 L Monocytes % 5.7 Eosinophils % 0.0 Basophils % 0.2 Nucleated Red Blood Cells % 0.0 Neutrophils # 9.5 H Lymphocytes # 1.5 Monocytes # 0.7 Eosinophils # 0.0 Basophils # 0.0 Nucleated Red Blood Cells # 0.0 Test 09/25/17 04:47 09/25/17 08:44 Sodium Level 137 Potassium Level 4.3 Chloride Level 107 Carbon Dioxide Level 23 Anion Gap 11 Blood Urea Nitrogen 20 Creatinine 0.41 L Glucose Level 155 Calcium Level 8.4 Phosphorus Level 3.7 Magnesium Level 1.8 Albumin 2.6 L Bedside Glucose 118 Medications Medications Current Medications Dexamethasone (Decadron) 4 mg BID PO Last administered on 09/24/17 22:05; Admin Dose 4 MG; Start 09/05/17 at 21:00 Docusate Sodium (Colace) 200 mg QHS PO Last administered on 09/24/17 22:04; Admin Dose 200 MG; Start 09/05/17 at 21:00 Ondansetron HCl (Zofran Inj) 4 mg Q6H PRN IV NAUSEA AND/OR VOMITING; Start at 21:00 Acetaminophen (Tylenol Tab) 650 mg Q6H PRN PO PAIN LEVEL 1-3 OR FEVER Last administered on 09/13/17 07:13; Admin Dose 650 MG; Start 09/05/17 at 21:00 Oxycodone/ Acetaminophen (Percocet (5/ 325)) 1 tab Q6H PRN PO MODERATE PAIN LEVEL 4-6; Start 09/05/17 at 21:00 Morphine Sulfate (morphine) 2 mg Q4H PRN IV SEVERE PAIN LEVEL 7-10 Last administered on 09/13/17 02:47; Admin Dose 2 MG; Start 09/05/17 at 21:00 Docusate Sodium (Colace) 100 mg Q12H PRN PO CONSTIPATION Last administered on 09/23/17 22:10; Admin Dose 100 MG; Start 09/05/17 at 21:00 Magnesium Hydroxide (Milk Of Mag) 30 ml DAILY PRN PO CONSTIPATION; Start 09/05 at 21:00 Famotidine (Pepcid) 20 mg Q12 PO Last administered on 09/24/17 22:05; Admin Dose 20 MG; Start 09/05/17 at 21:00 Albuterol (Proventil 0.083% (Neb)) 2.5 mg Q2 PRN HHN SHORTNESS OF BREATH; Start 09/05/17 at 21:00 Miscellaneous Information 1 ea NOTE XX ; Start 09/05/17 at 21:30 Glucose (Glutose) 15 gm Q15M PRN PO DECREASED GLUCOSE; Start 09/05/17 at 21:30 Glucose (Glutose) 22.5 gm Q15M PRN PO DECREASED GLUCOSE; Start 09/05/17 at 21: 30 Dextrose (D50w Syringe) 25 ml Q15M PRN IV DECREASED GLUCOSE; Start 09/05/17 at 21:30 Dextrose (D50w Syringe) 50 ml Q15M PRN IV DECREASED GLUCOSE; Start 09/05/17 at 21:30 Glucagon (Glucagen) 1 mg Q15M PRN IM DECREASED GLUCOSE; Start 09/05/17 at 21: 30 Glucose (Glutose) 15 gm Q15M PRN BUCCAL DECREASED GLUCOSE; Start 09/05/17 at 21:30 Nystatin (Nystatin Powder) 1 applic BID TOP Last administered on 09/24/17 22: 13; Admin Dose 1 APPLIC; Start 09/06/17 at 09:00 Tamoxifen Citrate 20 mg 20 mg DAILY PO Last administered on 09/24/17 09:35; Admin Dose 20 MG; Start 09/06/17 at 13:00 Ceftriaxone Sodium (Rocephin) 50 ml @ 100 mls/hr Q24H IVPB Last administered on 09/24/17 14:46; Admin Dose 100 MLS/HR; Start 09/08/17 at 14:00 Diagnostic Test (Pha) (Accu-Chek) 1 ea 02 XX Last administered on 09/21/17 02: 07; Admin Dose 1 EA; Start 09/16/17 at 02:00 ANTWON DYE M.D. Sep 25, 2017 09:16
--- NOTE | 2017-09-25 09:19 | RADRPT ---
PROCEDURE: XR Chest AP portable CLINICAL INDICATION: Pneumonia, CHF TECHNIQUE: An AP portable radiograph of the chest was submitted. COMPARISON: 09/24/2017 FINDINGS: Support Hardware: The right inferior pleural drainage catheter remains in place. Cardiovascular: The heart remains mildly enlarged all the peripheral pulmonary vasculature is upper normal. Lung Gaviria: Air space opacification is again seen within the right mid lung zone with atelectatic c hange seen in the right lung base. Pleural Spaces: A moderate right pleural fluid accumulation is again noted which appears at least pa rtially loculated laterally. No pneumothorax is evident. Osseous Structures: The osseous structures appear intact. Soft Tissues: The soft tissues appear generous. IMPRESSION: 1. The right-sided inferior pleural drainage catheter is stable in positioning. 2. The heart remains mildly enlarged with the pulmonary vasculature upper normal. 3. No change to the consolidation, atelectasis and partially loculated right pleural fluid accumula tion. Physician Sofia Date Time Electronically viewed and signed by Physician Sofia on 09/25/2017 09:19 /
--- NOTE | 2017-09-25 09:51 | PN ---
Date/Time of Note Date/Time of Note DATE: 09/25/17 TIME: 09:51 Assessment/Plan VTE Prophylaxis VTE Prophylaxis Intervention: contraindicated Lines/Catheters IV Catheter Type (from [facility]): Peripheral IV Urinary Cath still in place: No Assessment/Plan Assessment/Plan 1. Empyema 2/2 staph aureus s/p VATS 09/12/17 - Patient doing well and chest tube still in place and draining serous fluid - Pulmonology on board and recommendations appreciated. - One chest tube has been removed and patient feeling more comfortably. Repeat CXR shows no change to the consolidation, atelectasis and partially loculated right pleural fluid accumulation. - On incentive spirometry - CT surgery on board and appreciate consultation - ID on board and recommendations appreciated. continue on IV antibiotics until 10/07 - Ultrasound-guided thoracentesis performed, cultures showing staph aureus 2. Dysfunctional Pleurx catheter - Pulmonology on board and consultation appreciated - Respiratory status stable at this time 3. Cellulitis, area around catheter- improved - ID on board and recommendations appreciated 4. Metastatic breast cancer, lung, liver, brain, s/p craniectomy - currently receiving radiation therapy and tamoxifen and Decadron - Heme/onc on board and consultation appreciated - Radiation as scheduled 5. Diabetes mellitus - Currently stable 6. Obesity - Counseled about diet and improving exercise routine when able 7. Disposition - Awaiting CT surgery for clearance for discharge. per note, plan for home with SARBJIT drain - Continue antibiotics until 10/07 - patient planning to return home and requesting home health services be continued Subjective 24 Hr Interval Summary Free Text/Dictation Patient doing well and eager to go home. No acute overnight events and no new complaints. Exam/Review of Systems Vital Signs Vitals Vital Signs Date Time Temp Pulse Resp B/P Pulse Ox O2 Delivery O2 Flow Rate FiO2 09/25/17 08:31 98.6 75 22 116/78 98 Room Air Intake and Output 09/24/17 09/24/17 09/25/17 15:00 23:00 07:00 Intake Total 750 ml 500 ml Output Total 70 ml 70 ml Balance 680 ml 430 ml Exam General: Patient awake and alert, no acute distress. Head: R side craniectomy site healing well. Eyes: EOMI, pupils reactive to light Neck: Supple, nontender, midline Respiratory: diminished air entry with chest tube in place. previous CT incision site healing well Cardiovascular: regular rate, no obvious murmurs Gastrointestinal: non-tender to palpation, bowel sounds heard. Neurological: Moves all extremities spontaneously Results Result Diagram: 09/25/176 09/25/17 0447 Results 24 hrs Laboratory Tests Test 09/24/17 12:33 09/24/17 17:44 09/24/17 22:07 09/25/17 04:46 Bedside Glucose 141 232 H 162 White Blood Count 12.4 H Red Blood Count 4.07 L Hemoglobin 10.1 L Hematocrit 32.6 L Mean Corpuscular Volume 80.1 L Mean Corpuscular Hemoglobin 24.8 L Mean Corpuscular Hemoglobin Concent 31.0 L Red Cell Distribution Width 23.2 H Platelet Count 137 L Mean Platelet Volume 8.8 Neutrophils % 76.9 Lymphocytes % 12.3 L Monocytes % 5.7 Eosinophils % 0.0 Basophils % 0.2 Nucleated Red Blood Cells % 0.0 Neutrophils # 9.5 H Lymphocytes # 1.5 Monocytes # 0.7 Eosinophils # 0.0 Basophils # 0.0 Nucleated Red Blood Cells # 0.0 Test 09/25/17 04:47 09/25/17 08:44 Sodium Level 137 Potassium Level 4.3 Chloride Level 107 Carbon Dioxide Level 23 Anion Gap 11 Blood Urea Nitrogen 20 Creatinine 0.41 L Glucose Level 155 Calcium Level 8.4 Phosphorus Level 3.7 Magnesium Level 1.8 Albumin 2.6 L Bedside Glucose 118 Medications Medications Current Medications Dexamethasone (Decadron) 4 mg BID PO Last administered on 09/24/17 22:05; Admin Dose 4 MG; Start 09/05/17 at 21:00 Docusate Sodium (Colace) 200 mg QHS PO Last administered on 09/24/17 22:04; Admin Dose 200 MG; Start 09/05/17 at 21:00 Ondansetron HCl (Zofran Inj) 4 mg Q6H PRN IV NAUSEA AND/OR VOMITING; Start at 21:00 Acetaminophen (Tylenol Tab) 650 mg Q6H PRN PO PAIN LEVEL 1-3 OR FEVER Last administered on 09/13/17 07:13; Admin Dose 650 MG; Start 09/05/17 at 21:00 Oxycodone/ Acetaminophen (Percocet (5/ 325)) 1 tab Q6H PRN PO MODERATE PAIN LEVEL 4-6; Start 09/05/17 at 21:00 Morphine Sulfate (morphine) 2 mg Q4H PRN IV SEVERE PAIN LEVEL 7-10 Last administered on 09/13/17 02:47; Admin Dose 2 MG; Start 09/05/17 at 21:00 Docusate Sodium (Colace) 100 mg Q12H PRN PO CONSTIPATION Last administered on 09/23/17 22:10; Admin Dose 100 MG; Start 09/05/17 at 21:00 Magnesium Hydroxide (Milk Of Mag) 30 ml DAILY PRN PO CONSTIPATION; Start 09/05 at 21:00 Famotidine (Pepcid) 20 mg Q12 PO Last administered on 09/24/17 22:05; Admin Dose 20 MG; Start 09/05/17 at 21:00 Albuterol (Proventil 0.083% (Neb)) 2.5 mg Q2 PRN HHN SHORTNESS OF BREATH; Start 09/05/17 at 21:00 Miscellaneous Information 1 ea NOTE XX ; Start 09/05/17 at 21:30 Glucose (Glutose) 15 gm Q15M PRN PO DECREASED GLUCOSE; Start 09/05/17 at 21:30 Glucose (Glutose) 22.5 gm Q15M PRN PO DECREASED GLUCOSE; Start 09/05/17 at 21: 30 Dextrose (D50w Syringe) 25 ml Q15M PRN IV DECREASED GLUCOSE; Start 09/05/17 at 21:30 Dextrose (D50w Syringe) 50 ml Q15M PRN IV DECREASED GLUCOSE; Start 09/05/17 at 21:30 Glucagon (Glucagen) 1 mg Q15M PRN IM DECREASED GLUCOSE; Start 09/05/17 at 21: 30 Glucose (Glutose) 15 gm Q15M PRN BUCCAL DECREASED GLUCOSE; Start 09/05/17 at 21:30 Nystatin (Nystatin Powder) 1 applic BID TOP Last administered on 09/24/17 22: 13; Admin Dose 1 APPLIC; Start 09/06/17 at 09:00 Tamoxifen Citrate 20 mg 20 mg DAILY PO Last administered on 09/24/17 09:35; Admin Dose 20 MG; Start 09/06/17 at 13:00 Ceftriaxone Sodium (Rocephin) 50 ml @ 100 mls/hr Q24H IVPB Last administered on 09/24/17 14:46; Admin Dose 100 MLS/HR; Start 09/08/17 at 14:00 Diagnostic Test (Pha) (Accu-Chek) 1 ea XX Last administered on 09/21/17t 02: 07; Admin Dose 1 EA; Start 09/16/17 at 02:00 ZEUS ATBOR MD Sep 25, 2017 09:51
[2017-09-25] MEDS: DEXAMETHASONE 4 MG TAB PO SCH ×2 (10:21→21:45)
[2017-09-25] MEDS: FAMOTIDINE 20 MG TAB PO SCH ×2 (10:21→21:45)
[2017-09-25] MEDS: NYSTATIN 30 GM POWDER BTL TOP SCH ×2 (10:22→21:45)
[2017-09-25] MEDS: TAMOXIFEN 10 MG TAB PO SCH (10:22)
--- NOTE | 2017-09-25 12:14 | CONS ---
Date/Time of Note Date/Time of Note DATE: 09/25/17 TIME: 12:12 Consult Date/Type/Reason Admit Date/Time Sep 05, 2017 at 18:29 Initial Consult Date 09/07/17 Type of Consultation: ID Ordering Provider: MINDY NEGRON Objective Vital Signs Date Time Temp Pulse Resp B/P Pulse Ox O2 Delivery O2 Flow Rate FiO2 09/25/17 08:31 98.6 75 22 116/78 98 Room Air Intake and Output 09/24/17 09/24/17 09/25/17 15:00 23:00 07:00 Intake Total 750 ml 500 ml Output Total 70 ml 70 ml Balance 680 ml 430 ml Results/Medications Result Diagram: 09/25/17 0446 09/25/17 0447 Results 24 hrs Laboratory Tests Test 09/24/17 12:33 09/24/17 17:44 09/24/17 22:07 09/25/17 04:46 Bedside Glucose 141 232 H 162 White Blood Count 12.4 H Red Blood Count 4.07 L Hemoglobin 10.1 L Hematocrit 32.6 L Mean Corpuscular Volume 80.1 L Mean Corpuscular Hemoglobin 24.8 L Mean Corpuscular Hemoglobin Concent 31.0 L Red Cell Distribution Width 23.2 H Platelet Count 137 L Mean Platelet Volume 8.8 Neutrophils % 76.9 Lymphocytes % 12.3 L Monocytes % 5.7 Eosinophils % 0.0 Basophils % 0.2 Nucleated Red Blood Cells % 0.0 Neutrophils # 9.5 H Lymphocytes # 1.5 Monocytes # 0.7 Eosinophils # 0.0 Basophils # 0.0 Nucleated Red Blood Cells # 0.0 Test 09/25/17 04:47 09/25/17 08:44 Sodium Level 137 Potassium Level 4.3 Chloride Level 107 Carbon Dioxide Level 23 Anion Gap 11 Blood Urea Nitrogen 20 Creatinine 0.41 L Glucose Level 155 Calcium Level 8.4 Phosphorus Level 3.7 Magnesium Level 1.8 Albumin 2.6 L Bedside Glucose 118 Medications Current Medications Dexamethasone (Decadron) 4 mg BID PO Last administered on 09/25/17 10:21; Admin Dose 4 MG; Start 09/05/17 at 21:00 Docusate Sodium (Colace) 200 mg QHS PO Last administered on 09/24/17 22:04; Admin Dose 200 MG; Start 09/05/17 at 21:00 Ondansetron HCl (Zofran Inj) 4 mg Q6H PRN IV NAUSEA AND/OR VOMITING; Start at 21:00 Acetaminophen (Tylenol Tab) 650 mg Q6H PRN PO PAIN LEVEL 1-3 OR FEVER Last administered on 09/13/17 07:13; Admin Dose 650 MG; Start 09/05/17 at 21:00 Oxycodone/ Acetaminophen (Percocet (5/ 325)) 1 tab Q6H PRN PO MODERATE PAIN LEVEL 4-6; Start 09/05/17 at 21:00 Morphine Sulfate (morphine) 2 mg Q4H PRN IV SEVERE PAIN LEVEL 7-10 Last administered on 09/13/17 02:47; Admin Dose 2 MG; Start 09/05/17 at 21:00 Docusate Sodium (Colace) 100 mg Q12H PRN PO CONSTIPATION Last administered on 09/23/17 22:10; Admin Dose 100 MG; Start 09/05/17 at 21:00 Magnesium Hydroxide (Milk Of Mag) 30 ml DAILY PRN PO CONSTIPATION; Start 09/05 at 21:00 Famotidine (Pepcid) 20 mg Q12 PO Last administered on 09/25/17 10:21; Admin Dose 20 MG; Start 09/05/17 at 21:00 Albuterol (Proventil 0.083% (Neb)) 2.5 mg Q2 PRN HHN SHORTNESS OF BREATH; Start 09/05/17 at 21:00 Miscellaneous Information 1 ea NOTE XX ; Start 09/05/17 at 21:30 Glucose (Glutose) 15 gm Q15M PRN PO DECREASED GLUCOSE; Start 09/05/17 at 21:30 Glucose (Glutose) 22.5 gm Q15M PRN PO DECREASED GLUCOSE; Start 09/05/17 at 21: 30 Dextrose (D50w Syringe) 25 ml Q15M PRN IV DECREASED GLUCOSE; Start 09/05/17 at 21:30 Dextrose (D50w Syringe) 50 ml Q15M PRN IV DECREASED GLUCOSE; Start 09/05/17 at 21:30 Glucagon (Glucagen) 1 mg Q15M PRN IM DECREASED GLUCOSE; Start 09/05/17 at 21: 30 Glucose (Glutose) 15 gm Q15M PRN BUCCAL DECREASED GLUCOSE; Start 09/05/17 at 21:30 Nystatin (Nystatin Powder) 1 applic BID TOP Last administered on 09/25/17 10: 22; Admin Dose 1 APPLIC; Start 09/06/17 at 09:00 Tamoxifen Citrate 20 mg 20 mg DAILY PO Last administered on 09/25/17 10:22; Admin Dose 20 MG; Start 09/06/17 at 13:00 Ceftriaxone Sodium (Rocephin) 50 ml @ 100 mls/hr Q24H IVPB Last administered on 09/24/17 14:46; Admin Dose 100 MLS/HR; Start 09/08/17 at 14:00 Diagnostic Test (Pha) (Accu-Chek) 1 ea 02 XX Last administered on 09/21/17 02: 07; Admin Dose 1 EA; Start 09/16/17 at 02:00 Assessment/Plan Chief Complaint/Hosp Course SUBJECTIVE: No events overnight. Alert, feels good, no fevers. INDWELLINGS: Right chest tube. ANTIMICROBIALS: Rocephin. PHYSICAL EXAMINATION: GENERAL: This is an obese, well-developed, middle-aged woman who is awake, in no distress. HEENT: Head atraumatic, normocephalic. Sclerae anicteric. Buccal mucosa dry. NECK: Supple. CHEST: Rise symmetrical. Breath sounds diminished to bases. HEART: S1, S2. ABDOMEN: Soft, bowel tones present. EXTREMITIES: Without cyanosis. ASSESSMENT: 1. Right-sided loculated pleural effusion consistent with empyema with fluid culture growing oxacillin-sensitive Staphylococcus aureus. The patient is status post decortication and pleurodesis on 09/12/2017. 2. Metastatic breast cancer. 3. Diabetes. 4. History of craniectomy for brain metastasis. PLAN: The patient remains stable. Continue abx till Oct 07 for empyema. Pulmonary/CTS/oncology rec-s [facility] staff Problems: ZULEYMA ALEX NP Sep 25, 2017 12:13
[2017-09-25] MEDS: CEFTRIAXONE 1 GM/50 ML (PMX) 50 ML IVPB SCH (14:50)
--- NOTE | 2017-09-25 15:03 | PN ---
Date/Time of Note Date/Time of Note DATE: 09/25/17 TIME: 15:02 Assessment/Plan Lines/Catheters IV Catheter Type (from Nrs): Saline Lock Francois in Place (from Nrs): No Assessment/Plan Chief Complaint/Hosp Course IMPRESSION: Right loculated pleural effusion. R status post right VATS pleurodesis decortication Patient feels much better 2nd CT DCed Check chest x-ray Problems: Subjective 24 Hr Interval Summary Constitutional: improved Pain Control: mild Exam/Review of Systems Vital Signs Vitals Vital Signs Date Time Temp Pulse Resp B/P Pulse Ox O2 Delivery O2 Flow Rate FiO2 09/25/17 08:31 98.6 75 22 116/78 98 Room Air Intake and Output 09/24/17 09/24/17 09/25/17 14:59 22:59 06:59 Intake Total 750 ml 500 ml Output Total 70 ml 70 ml Balance 680 ml 430 ml Exam ENMT: mucosa pink and moist, nl external ears & nose, nl lips & teeth, nl nasal mucosa & septum Neck: non-tender, supple Respiratory: clear to auscultation, normal air movement Cardiovascular: nl pulses, regular rate and rhythm Results Result Diagram: 09/25/17 0446 09/25/17 0447 DEVIKA MENA MD Sep 25, 2017 15:03
--- NOTE | 2017-09-25 15:12 | CONS ---
Date/Time of Note Date/Time of Note DATE: 09/25/17 TIME: 15:11 Consult Date/Type/Reason Admit Date/Time Sep 05, 2017 at 18:29 Initial Consult Date 09/06/17 Type of Consultation: Pulm Ordering Provider: MINDY NEGRON Subjective Patient comfortable this morning. Status post radiation therapy. Chest tube to be removed. Objective Vital Signs Date Time Temp Pulse Resp B/P Pulse Ox O2 Delivery O2 Flow Rate FiO2 09/25/17 08:31 98.6 75 22 116/78 98 Room Air Intake and Output 09/24/17 09/24/17 09/25/17 15:00 23:00 07:00 Intake Total 750 ml 500 ml Output Total 70 ml 70 ml Balance 680 ml 430 ml Exam GENERAL: Well-nourished well-developed lady comfortable at rest no acute distress VITAL SIGNS: per chart NECK: Supple. No JVD or lymphadenopathy. CARDIAC EXAM: S1, S2. No added sounds or murmurs. CHEST: Diminished air entry right lung chest tube in place. ABDOMEN: Soft, nontender. No guarding or rebound. EXTREMITIES: No cyanosis, clubbing or edema. NEUROLOGIC: Generalized weakness. No focal deficits. Results/Medications Result Diagram: 09/25/17 0446 09/25/17 0447 Results 24 hrs Laboratory Tests Test 09/24/17 17:44 09/24/17 22:07 09/25/17 04:46 09/25/17 04:47 Bedside Glucose 232 H 162 White Blood Count 12.4 H Red Blood Count 4.07 L Hemoglobin 10.1 L Hematocrit 32.6 L Mean Corpuscular Volume 80.1 L Mean Corpuscular Hemoglobin 24.8 L Mean Corpuscular Hemoglobin Concent 31.0 L Red Cell Distribution Width 23.2 H Platelet Count 137 L Mean Platelet Volume 8.8 Neutrophils % 76.9 Lymphocytes % 12.3 L Monocytes % 5.7 Eosinophils % 0.0 Basophils % 0.2 Nucleated Red Blood Cells % 0.0 Neutrophils # 9.5 H Lymphocytes # 1.5 Monocytes # 0.7 Eosinophils # 0.0 Basophils # 0.0 Nucleated Red Blood Cells # 0.0 Sodium Level 137 Potassium Level 4.3 Chloride Level 107 Carbon Dioxide Level 23 Anion Gap 11 Blood Urea Nitrogen 20 Creatinine 0.41 L Glucose Level 155 Calcium Level 8.4 Phosphorus Level 3.7 Magnesium Level 1.8 Albumin 2.6 L Test 09/25/17 08:44 09/25/17 13:52 Bedside Glucose 118 146 Medications Current Medications Dexamethasone (Decadron) 4 mg BID PO Last administered on 09/25/17 10:21; Admin Dose 4 MG; Start 09/05/17 at 21:00 Docusate Sodium (Colace) 200 mg QHS PO Last administered on 09/24/17 22:04; Admin Dose 200 MG; Start 09/05/17 at 21:00 Ondansetron HCl (Zofran Inj) 4 mg Q6H PRN IV NAUSEA AND/OR VOMITING; Start at 21:00 Acetaminophen (Tylenol Tab) 650 mg Q6H PRN PO PAIN LEVEL 1-3 OR FEVER Last administered on 09/13/17 07:13; Admin Dose 650 MG; Start 09/05/17 at 21:00 Oxycodone/ Acetaminophen (Percocet (5/ 325)) 1 tab Q6H PRN PO MODERATE PAIN LEVEL 4-6; Start 09/05/17 at 21:00 Morphine Sulfate (morphine) 2 mg Q4H PRN IV SEVERE PAIN LEVEL 7-10 Last administered on 09/13/17 02:47; Admin Dose 2 MG; Start 09/05/17 at 21:00 Docusate Sodium (Colace) 100 mg Q12H PRN PO CONSTIPATION Last administered on 09/23/17 22:10; Admin Dose 100 MG; Start 09/05/17 at 21:00 Magnesium Hydroxide (Milk Of Mag) 30 ml DAILY PRN PO CONSTIPATION; Start 09/05 at 21:00 Famotidine (Pepcid) 20 mg Q12 PO Last administered on 09/25/17 10:21; Admin Dose 20 MG; Start 09/05/17 at 21:00 Albuterol (Proventil 0.083% (Neb)) 2.5 mg Q2 PRN HHN SHORTNESS OF BREATH; Start 09/05/17 at 21:00 Miscellaneous Information 1 ea NOTE XX ; Start 09/05/17 at 21:30 Glucose (Glutose) 15 gm Q15M PRN PO DECREASED GLUCOSE; Start 09/05/17 at 21:30 Glucose (Glutose) 22.5 gm Q15M PRN PO DECREASED GLUCOSE; Start 09/05/17 at 21: 30 Dextrose (D50w Syringe) 25 ml Q15M PRN IV DECREASED GLUCOSE; Start 09/05/17 at 21:30 Dextrose (D50w Syringe) 50 ml Q15M PRN IV DECREASED GLUCOSE; Start 09/05/17 at 21:30 Glucagon (Glucagen) 1 mg Q15M PRN IM DECREASED GLUCOSE; Start 09/05/17 at 21: 30 Glucose (Glutose) 15 gm Q15M PRN BUCCAL DECREASED GLUCOSE; Start 09/05/17 at 21:30 Nystatin (Nystatin Powder) 1 applic BID TOP Last administered on 09/25/17 10: 22; Admin Dose 1 APPLIC; Start 09/06/17 at 09:00 Tamoxifen Citrate 20 mg 20 mg DAILY PO Last administered on 09/25/17 10:22; Admin Dose 20 MG; Start 09/06/17 at 13:00 Ceftriaxone Sodium (Rocephin) 50 ml @ 100 mls/hr Q24H IVPB Last administered on 09/25/17 14:50; Admin Dose 100 MLS/HR; Start 09/08/17 at 14:00 Diagnostic Test (Pha) (Accu-Chek) 1 ea 02 XX Last administered on 09/21/17 02: 07; Admin Dose 1 EA; Start 09/16/17 at 02:00 Assessment/Plan Chief Complaint/Hosp Course Assessment 1. Metastatic breast cancer with recurrent right pleural effusion. Cultures growing gram-positive cocci consistent with staph aureus. 2. Loculated pleural effusion possible empyema status post decortication and pleurodesis. Still with moderate chest tube output. 3. HOIST WORKER metastasis currently receiving steroids and radiation therapy Plan 1. Continue chest tube drainage. Discussed with thoracic surgery will change to Dulce tube so that patient can be discharged home. 2. Continue oncology recommendations continues radiation therapy for HOIST WORKER metastasis 3. Leukocytosis likely secondary to dexamethasone. Repeat chest x-ray in a.m. if still has right pleural effusion despite chest tube removal will order thoracentesis prior to discharge. Continue radiation therapy Discharge planning. Problems: MARTINEZ MASCORRO MD, [facility] Sep 25, 2017 15:12
[2017-09-25 16:00] VITALS: BP 132/61; RESP 19
[2017-09-25] MEDS ORDERED: LIDOCAINE 1% (MPF) 5 ML VIAL SC ONE (17:30)
[2017-09-25 20:00] VITALS: BP 116/78; RESP 18
[2017-09-25] MEDS: DOCUSATE SODIUM 100 MG CAP PO SCH (21:45)
[2017-09-26] MEDS: ACCU-CHEK XX SCH (02:22)
[2017-09-26 02:48] VITALS: BP 133/75; RESP 20
[2017-09-26 05:14] LABS: ABNORMAL IP MESSAGE 1; BASOPHILS % 0.1 % (0.0-2.0); HEMOGLOBIN 10.3 g/dl (12.0-16.0); LYMPHOCYTES # 1.4 10^3/ul (0.8-2.9); LYMPHOCYTES % 9.2 % (15.0-51.0); MEAN CORPUSCULAR HEMOGLOBIN 24.6 pg (29.0-33.0); MEAN CORPUSCULAR HGB CONC 31.2 g/dl (32.0-37.0); MEAN CORPUSCULAR VOLUME 78.8 fl (82.0-101.0); MEAN PLATELET VOLUME 9.2 fl (7.4-10.4); MONOCYTE # 1.3 10^3/ul (0.3-0.9); MONOCYTES % 8.3 % (0.0-11.0); NEUTROPHIL # 11.9 10^3/ul (1.6-7.5); NEUTROPHILS % 78.2 % (39.0-77.0); PLATELET COUNT 155 10^3/UL (140-415); RED BLOOD COUNT 4.19 10^6/ul (4.20-5.40); RED CELL DISTRIBUTION WIDTH 23.4 % (11.5-14.5); WHITE BLOOD COUNT 15.2 10^3/ul (4.8-10.8)
[2017-09-26 05:23] LABS: POSITIVE DIFF @See below
[2017-09-26] MEDS: INSULIN ASPART [NOVOLOG] 3 ML PEN SC SCH ×4 (07:50→21:11)
[2017-09-26 08:30] VITALS: BP 142/80; RESP 20
[2017-09-26] MEDS: DEXAMETHASONE 4 MG TAB PO SCH ×2 (08:40→21:10)
[2017-09-26] MEDS: NYSTATIN 30 GM POWDER BTL TOP SCH ×2 (08:40→21:11)
[2017-09-26] MEDS: FAMOTIDINE 20 MG TAB PO SCH ×2 (08:40→21:10)
--- NOTE | 2017-09-26 09:04 | RADRPT ---
PROCEDURE: XR Chest. CLINICAL INDICATION: Shortness of breath TECHNIQUE: Single portable view of the chest was obtained. COMPARISON: 09/25/2017 additional priors FINDINGS: Cardiac/vascular structures: Stable partially obscured cardiomediastinal silhouette. Pulmonary: Similar right perihilar and basilar airspace opacities. Left lung is clear.. Similar mod erate size right pleural effusion. No evidence of pneumothorax. Osseous structures: Normal Soft tissues: Normal IMPRESSION: Similar right perihilar and basilar airspace opacities. Similar moderate size right pleural effusion RPTAT:AAJJ Physician Cely Date Time Electronically viewed and signed by Physician Cely on 09/26/2017 09:04 /
[2017-09-26] MEDS: TAMOXIFEN 10 MG TAB PO SCH (09:09)
[2017-09-26] MEDS ORDERED: SOD CHLORIDE 0.9% 100 ML ONE (12:30)
--- NOTE | 2017-09-26 12:53 | CONS ---
Date/Time of Note Date/Time of Note DATE: 09/26/17 TIME: 12:53 Consult Date/Type/Reason Admit Date/Time Sep 05, 2017 at 18:29 Initial Consult Date 09/07/17 Type of Consultation: ID Ordering Provider: MINDY NEGRON Objective Vital Signs Date Time Temp Pulse Resp B/P Pulse Ox O2 Delivery O2 Flow Rate FiO2 09/26/17 08:30 97.7 63 20 142/80 98 09/25/17 08:31 Room Air Intake and Output 09/25/17 09/25/17 09/26/17 14:59 22:59 06:59 Intake Total 750 ml 600 ml Balance 750 ml 600 ml Results/Medications Result Diagram: 09/26/17 0435 09/25/17 0447 Results 24 hrs Laboratory Tests Test 09/25/17 13:52 09/25/17 17:43 09/25/17 21:43 09/26/17 02:06 Bedside Glucose 146 153 188 171 Test 09/26/17 04:35 09/26/17 09:20 09/26/17 12:46 White Blood Count 15.2 #H Red Blood Count 4.19 L Hemoglobin 10.3 L Hematocrit 33.0 L Mean Corpuscular Volume 78.8 L Mean Corpuscular Hemoglobin 24.6 L Mean Corpuscular Hemoglobin Concent 31.2 L Red Cell Distribution Width 23.4 H Platelet Count 155 Mean Platelet Volume 9.2 Neutrophils % 78.2 H Lymphocytes % 9.2 L Monocytes % 8.3 Eosinophils % 0.0 Basophils % 0.1 Nucleated Red Blood Cells % 0.0 Neutrophils # 11.9 H Lymphocytes # 1.4 Monocytes # 1.3 H Eosinophils # 0.0 Basophils # 0.0 Nucleated Red Blood Cells # 0.0 Bedside Glucose 110 180 Medications Current Medications Dexamethasone (Decadron) 4 mg BID PO Last administered on 09/26/17 08:40; Admin Dose 4 MG; Start 09/05/17 at 21:00 Docusate Sodium (Colace) 200 mg QHS PO Last administered on 09/25/17 21:45; Admin Dose 200 MG; Start 09/05/17 at 21:00 Ondansetron HCl (Zofran Inj) 4 mg Q6H PRN IV NAUSEA AND/OR VOMITING; Start at 21:00 Acetaminophen (Tylenol Tab) 650 mg Q6H PRN PO PAIN LEVEL 1-3 OR FEVER Last administered on 09/13/17 07:13; Admin Dose 650 MG; Start 09/05/17 at 21:00 Oxycodone/ Acetaminophen (Percocet (5/ 325)) 1 tab Q6H PRN PO MODERATE PAIN LEVEL 4-6; Start 09/05/17 at 21:00 Morphine Sulfate (morphine) 2 mg Q4H PRN IV SEVERE PAIN LEVEL 7-10 Last administered on 09/13/17 02:47; Admin Dose 2 MG; Start 09/05/17 at 21:00 Docusate Sodium (Colace) 100 mg Q12H PRN PO CONSTIPATION Last administered on 09/23/17 22:10; Admin Dose 100 MG; Start 09/05/17 at 21:00 Magnesium Hydroxide (Milk Of Mag) 30 ml DAILY PRN PO CONSTIPATION; Start 09/05 at 21:00 Famotidine (Pepcid) 20 mg Q12 PO Last administered on 09/26/17 08:40; Admin Dose 20 MG; Start 09/05/17 at 21:00 Albuterol (Proventil 0.083% (Neb)) 2.5 mg Q2 PRN HHN SHORTNESS OF BREATH; Start 09/05/17 at 21:00 Miscellaneous Information 1 ea NOTE XX ; Start 09/05/17 at 21:30 Glucose (Glutose) 15 gm Q15M PRN PO DECREASED GLUCOSE; Start 09/05/17 at 21:30 Glucose (Glutose) 22.5 gm Q15M PRN PO DECREASED GLUCOSE; Start 09/05/17 at 21: 30 Dextrose (D50w Syringe) 25 ml Q15M PRN IV DECREASED GLUCOSE; Start 09/05/17 at 21:30 Dextrose (D50w Syringe) 50 ml Q15M PRN IV DECREASED GLUCOSE; Start 09/05/17 at 21:30 Glucagon (Glucagen) 1 mg Q15M PRN IM DECREASED GLUCOSE; Start 09/05/17 at 21: 30 Glucose (Glutose) 15 gm Q15M PRN BUCCAL DECREASED GLUCOSE; Start 09/05/17 at 21:30 Nystatin (Nystatin Powder) 1 applic BID TOP Last administered on 09/26/17 08: 40; Admin Dose 1 APPLIC; Start 09/06/17 at 09:00 Tamoxifen Citrate 20 mg 20 mg DAILY PO Last administered on 09/26/17 09:09; Admin Dose 20 MG; Start 09/06/17 at 13:00 Ceftriaxone Sodium (Rocephin) 50 ml @ 100 mls/hr Q24H IVPB Last administered on 09/25/17 14:50; Admin Dose 100 MLS/HR; Start 09/08/17 at 14:00 Diagnostic Test (Pha) (Accu-Chek) 1 ea 02 XX Last administered on 09/26/17 02 :22; Admin Dose 1 EA; Start 09/16/17 at 02:00 IV Flush (NS 10 ml) 10 ml PRN PRN IV IV PROTOCOL; Start 09/26/17 at 13:00 Assessment/Plan Chief Complaint/Hosp Course SUBJECTIVE: No events overnight. Looks comfortable, no fevers. INDWELLINGS: Right chest tube. ANTIMICROBIALS: Rocephin. PHYSICAL EXAMINATION: GENERAL: This is an obese, well-developed, middle-aged woman who is awake, in no distress. HEENT: Head atraumatic, normocephalic. Sclerae anicteric. Buccal mucosa dry. NECK: Supple. CHEST: Rise symmetrical. Breath sounds diminished to bases. HEART: S1, S2. ABDOMEN: Soft, bowel tones present. EXTREMITIES: Without cyanosis. ASSESSMENT: 1. Right-sided loculated pleural effusion consistent with empyema with fluid culture growing oxacillin-sensitive Staphylococcus aureus. The patient is status post decortication and pleurodesis on 09/12/2017. 2. Metastatic breast cancer. 3. Diabetes. 4. History of craniectomy for brain metastasis. PLAN: The patient remains stable. F/u cxr. Continue abx till Oct 07 for empyema. Pulmonary/CTS/oncology rec-s [facility] staff Problems: ZULEYMA ALEX NP Sep 26, 2017 12:53
--- NOTE | 2017-09-26 13:19 | RADRPT ---
PROCEDURE: XR Chest. CLINICAL INDICATION: Check Line Placement TECHNIQUE: Single frontal view of the chest was obtained. COMPARISON: Chest x-ray from 03/23/2016 FINDINGS: A new left-sided PICC line is noted with its tip in the right brachial cephalic vein. There is moderate cardiomegaly. A mild to moderate right pleural effusion is again noted with subsegmental right basilar atelectasis . IMPRESSION: Interval placement of a left-sided PICC line with its tip in the right brachial cephalic vein. Repos itioning is recommended. Moderate cardiomegaly with a mild to moderate right pleural effusion and subsegmental right basilar atelectasis. RPTAT: EE Physician Davin Date Time Electronically viewed and signed by Elias Drew Physician on 09/26/2017 13:19 /
--- NOTE | 2017-09-26 13:28 | RADRPT ---
PROCEDURE: XR Chest. CLINICAL INDICATION: Check Line Placement TECHNIQUE: Single frontal view of the chest. COMPARISON: Chest radiograph dated September 26, 2017 at 12:08 pm. FINDINGS: Left-sided PICC with its tip overlying the upper right atrium. There is stable mild cardiomegaly. Aortic calcifications are present. Again seen is a mild to moderate right pleural effusion with adjacent subsegmental atelectasis, not significantly changed in appearance. Degenerative changes of the shoulder joints are noted. IMPRESSION: 1. Left-sided PICC with its tip overlying the upper right atrium. No evidence of pneumothorax. 2. Unchanged small to moderate right pleural effusion with adjacent subsegmental atelectasis. RPTAT:AAJJ Physician Bibiana Date Time Electronically viewed and signed by Ruthy Cuadra Physician on 09/26/2017 13:27 QL/
[2017-09-26] MEDS: CEFTRIAXONE 1 GM/50 ML (PMX) 50 ML IVPB SCH (13:59)
--- NOTE | 2017-09-26 14:53 | RADRPT ---
PROCEDURE: Ultrasound guidance for placement of needle in left upper extremity vein. CLINICAL INDICATION: Venous access. TECHNIQUE: Limited sonography of the left upper extremity was performed. Ultrasound images were recorded and s tored in the patient's medical record. COMPARISON: None. FINDINGS: The ultrasound images demonstrate a patent left upper extremity vein. The PICC line was inserted by the PICC line nurse. IMPRESSION: 1. Ultrasound guidance for a needle placement in a left upper extremity vein. 2. The left upper extremity vein is patent. RPTAT: QQ .Itz Parsons MD, MD Date Time Electronically viewed and signed by .Itz Parsons MD, MD on 09/26/2017 14:53 .R/
--- NOTE | 2017-09-26 15:25 | CONS ---
Date/Time of Note Date/Time of Note DATE: 09/26/17 TIME: 15:23 Consult Date/Type/Reason Admit Date/Time Sep 05, 2017 at 18:29 Initial Consult Date 09/06/17 Type of Consultation: Pulmonary Ordering Provider: MINDY NEGRON Chest tube removed. Patient denies shortness of breath. Objective Vital Signs Date Time Temp Pulse Resp B/P Pulse Ox O2 Delivery O2 Flow Rate FiO2 09/26/17 08:30 97.7 63 20 142/80 98 09/25/17 08:31 Room Air Intake and Output 09/25/17 09/25/17 09/26/17 15:00 23:00 07:00 Intake Total 750 ml 600 ml Balance 750 ml 600 ml Exam GENERAL: Well-nourished well-developed lady comfortable at rest no acute distress VITAL SIGNS: per chart NECK: Supple. No JVD or lymphadenopathy. CARDIAC EXAM: S1, S2. No added sounds or murmurs. CHEST: Diminished air entry ABDOMEN: Soft, nontender. No guarding or rebound. EXTREMITIES: No cyanosis, clubbing or edema. NEUROLOGIC: Generalized weakness. No focal deficits. Results/Medications Result Diagram: 09/26/17 0435 09/25/17 0447 Results 24 hrs Laboratory Tests Test 09/25/17 17:43 09/25/17 21:43 09/26/17 02:06 09/26/17 04:35 Bedside Glucose 153 188 171 White Blood Count 15.2 #H Red Blood Count 4.19 L Hemoglobin 10.3 L Hematocrit 33.0 L Mean Corpuscular Volume 78.8 L Mean Corpuscular Hemoglobin 24.6 L Mean Corpuscular Hemoglobin Concent 31.2 L Red Cell Distribution Width 23.4 H Platelet Count 155 Mean Platelet Volume 9.2 Neutrophils % 78.2 H Lymphocytes % 9.2 L Monocytes % 8.3 Eosinophils % 0.0 Basophils % 0.1 Nucleated Red Blood Cells % 0.0 Neutrophils # 11.9 H Lymphocytes # 1.4 Monocytes # 1.3 H Eosinophils # 0.0 Basophils # 0.0 Nucleated Red Blood Cells # 0.0 Test 09/26/17 09:20 09/26/17 12:46 Bedside Glucose 110 180 Medications Current Medications Dexamethasone (Decadron) 4 mg BID PO Last administered on 09/26/17t 08:40; Admin Dose 4 MG; Start 09/05/17 at 21:00 Docusate Sodium (Colace) 200 mg QHS PO Last administered on 09/25/17 21:45; Admin Dose 200 MG; Start 09/05/17 at 21:00 Ondansetron HCl (Zofran Inj) 4 mg Q6H PRN IV NAUSEA AND/OR VOMITING; Start at 21:00 Acetaminophen (Tylenol Tab) 650 mg Q6H PRN PO PAIN LEVEL 1-3 OR FEVER Last administered on 09/13/17 07:13; Admin Dose 650 MG; Start 09/05/17 at 21:00 Oxycodone/ Acetaminophen (Percocet (5/ 325)) 1 tab Q6H PRN PO MODERATE PAIN LEVEL 4-6; Start 09/05/17 at 21:00 Morphine Sulfate (morphine) 2 mg Q4H PRN IV SEVERE PAIN LEVEL 7-10 Last administered on 09/13/17 02:47; Admin Dose 2 MG; Start 09/05/17 at 21:00 Docusate Sodium (Colace) 100 mg Q12H PRN PO CONSTIPATION Last administered on 09/23/17 22:10; Admin Dose 100 MG; Start 09/05/17 at 21:00 Magnesium Hydroxide (Milk Of Mag) 30 ml DAILY PRN PO CONSTIPATION; Start 09/05 at 21:00 Famotidine (Pepcid) 20 mg Q12 PO Last administered on 09/26/17 08:40; Admin Dose 20 MG; Start 09/05/17 at 21:00 Albuterol (Proventil 0.083% (Neb)) 2.5 mg Q2 PRN HHN SHORTNESS OF BREATH; Start 09/05/17 at 21:00 Miscellaneous Information 1 ea NOTE XX ; Start 09/05/17 at 21:30 Glucose (Glutose) 15 gm Q15M PRN PO DECREASED GLUCOSE; Start 09/05/17 at 21:30 Glucose (Glutose) 22.5 gm Q15M PRN PO DECREASED GLUCOSE; Start 09/05/17 at 21: 30 Dextrose (D50w Syringe) 25 ml Q15M PRN IV DECREASED GLUCOSE; Start 09/05/17 at 21:30 Dextrose (D50w Syringe) 50 ml Q15M PRN IV DECREASED GLUCOSE; Start 09/05/17 at 21:30 Glucagon (Glucagen) 1 mg Q15M PRN IM DECREASED GLUCOSE; Start 09/05/17 at 21: 30 Glucose (Glutose) 15 gm Q15M PRN BUCCAL DECREASED GLUCOSE; Start 09/05/17 at 21:30 Nystatin (Nystatin Powder) 1 applic BID TOP Last administered on 09/26/17 08: 40; Admin Dose 1 APPLIC; Start 09/06/17 at 09:00 Tamoxifen Citrate 20 mg 20 mg DAILY PO Last administered on 09/26/17 09:09; Admin Dose 20 MG; Start 09/06/17 at 13:00 Ceftriaxone Sodium (Rocephin) 50 ml @ 100 mls/hr Q24H IVPB Last administered on 09/26/17 13:59; Admin Dose 100 MLS/HR; Start 09/08/17 at 14:00 Diagnostic Test (Pha) (Accu-Chek) 1 ea 02 XX Last administered on 09/26/17 02 :22; Admin Dose 1 EA; Start 09/16/17 at 02:00 IV Flush (NS 10 ml) 10 ml PRN PRN IV IV PROTOCOL; Start 09/26/17 at 13:00 Assessment/Plan Chief Complaint/Hosp Course Assessment 1. Metastatic breast cancer with recurrent right pleural effusion. Cultures growing gram-positive cocci consistent with staph aureus. 2. Loculated pleural effusion possible empyema status post decortication and pleurodesis. Chest tube now removed. 3. [employer] metastasis currently receiving steroids and radiation therapy Plan 1. Status post chest tube placement. Moderate pleural effusion. 2. Continue oncology recommendations continues radiation therapy for KILN ME[employer]IC metastasis 3. Leukocytosis likely secondary to dexamethasone. DC home. Follow-up with me in the office may require repeat thoracentesis. Continue radiation therapy Discharge planning. Problems: MARTINEZ MASCORRO MD, [facility] Sep 26, 2017 15:25
--- NOTE | 2017-09-26 15:48 | PN ---
Date/Time of Note Date/Time of Note DATE: 09/26/17 TIME: 15:45 Assessment/Plan VTE Prophylaxis VTE Prophylaxis Intervention: contraindicated Lines/Catheters IV [facility] ([facility] PICC Line Central line still needed: Yes Urinary Cath still in place: No Assessment/Plan Assessment/Plan 1. Empyema 2/2 staph aureus s/p VATS 09/12/17 - Patient doing well and chest tube removed - Pulmonology on board and recommendations appreciated. - CXR shows moderate pleural effusion and will need to follow up with Pulm as outpatient for thoracentesis if needed - On incentive spirometry - CT surgery on board and appreciate consultation - ID on board and recommendations appreciated. continue on IV antibiotics until 10/07. PICC line placed - Ultrasound-guided thoracentesis performed, cultures showing staph aureus 2. Dysfunctional Pleurx catheter - Pulmonology on board and consultation appreciated - Respiratory status stable at this time 3. Cellulitis, area around catheter- improved - ID on board and recommendations appreciated 4. Metastatic breast cancer, lung, liver, brain, s/p craniectomy - currently receiving radiation therapy and tamoxifen and Decadron - Heme/onc on board and consultation appreciated - Radiation as scheduled. Next session is tonight 5. Diabetes mellitus - Currently stable 6. Obesity - Counseled about diet and improving exercise routine when able 7. Disposition - Continue antibiotics until 10/07 - patient planning to return home and requesting home health services be continued Subjective 24 Hr Interval Summary Free Text/Dictation Patient states feeling better but concerned about difficulty ambulating. No acute overnight events. PICC line placed and Radiation scheduled for this evening Exam/Review of Systems Vital Signs Vitals Vital Signs Date Time Temp Pulse Resp B/P Pulse Ox O2 Delivery O2 Flow Rate FiO2 09/26/17 08:30 97.7 63 20 142/80 98 09/25/17 08:31 Room Air Intake and Output 09/25/17 09/25/17 09/26/17 14:59 22:59 06:59 Intake Total 750 ml 600 ml Balance 750 ml 600 ml Exam General: Patient awake and alert, no acute distress. Head: R side craniectomy site healing well. Eyes: EOMI, pupils reactive to light Neck: Supple, nontender, midline Respiratory: Diminished breath sounds on right, no wheezing or crackles. previous CT incision site healing well Cardiovascular: regular rate, no obvious murmurs Gastrointestinal: non-tender to palpation, bowel sounds heard. Neurological: Moves all extremities spontaneously Results Result Diagram: 09/26/17 0435 09/25/17 0447 Results 24 hrs Laboratory Tests Test 09/25/17 17:43 09/25/17 21:43 09/26/17 02:06 09/26/17 04:35 Bedside Glucose 153 188 171 White Blood Count 15.2 #H Red Blood Count 4.19 L Hemoglobin 10.3 L Hematocrit 33.0 L Mean Corpuscular Volume 78.8 L Mean Corpuscular Hemoglobin 24.6 L Mean Corpuscular Hemoglobin Concent 31.2 L Red Cell Distribution Width 23.4 H Platelet Count 155 Mean Platelet Volume 9.2 Neutrophils % 78.2 H Lymphocytes % 9.2 L Monocytes % 8.3 Eosinophils % 0.0 Basophils % 0.1 Nucleated Red Blood Cells % 0.0 Neutrophils # 11.9 H Lymphocytes # 1.4 Monocytes # 1.3 H Eosinophils # 0.0 Basophils # 0.0 Nucleated Red Blood Cells # 0.0 Test 09/26/17 09:20 09/26/17 12:46 Bedside Glucose 110 180 Medications Medications Current Medications Dexamethasone (Decadron) 4 mg BID PO Last administered on 09/26/17 08:40; Admin Dose 4 MG; Start 09/05/17 at 21:00 Docusate Sodium (Colace) 200 mg QHS PO Last administered on 09/25/17 21:45; Admin Dose 200 MG; Start 09/05/17 at 21:00 Ondansetron HCl (Zofran Inj) 4 mg Q6H PRN IV NAUSEA AND/OR VOMITING; Start at 21:00 Acetaminophen (Tylenol Tab) 650 mg Q6H PRN PO PAIN LEVEL 1-3 OR FEVER Last administered on 09/13/17 07:13; Admin Dose 650 MG; Start 09/05/17 at 21:00 Oxycodone/ Acetaminophen (Percocet (5/ 325)) 1 tab Q6H PRN PO MODERATE PAIN LEVEL 4-6; Start 09/05/17 at 21:00 Morphine Sulfate (morphine) 2 mg Q4H PRN IV SEVERE PAIN LEVEL 7-10 Last administered on 09/13/17 02:47; Admin Dose 2 MG; Start 09/05/17 at 21:00 Docusate Sodium (Colace) 100 mg Q12H PRN PO CONSTIPATION Last administered on 09/23/17 22:10; Admin Dose 100 MG; Start 09/05/17 at 21:00 Magnesium Hydroxide (Milk Of Mag) 30 ml DAILY PRN PO CONSTIPATION; Start 09/05 at 21:00 Famotidine (Pepcid) 20 mg Q12 PO Last administered on 09/26/17 08:40; Admin Dose 20 MG; Start 09/05/17 at 21:00 Albuterol (Proventil 0.083% (Neb)) 2.5 mg Q2 PRN HHN SHORTNESS OF BREATH; Start 09/05/17 at 21:00 Miscellaneous Information 1 ea NOTE XX ; Start 09/05/17 at 21:30 Glucose (Glutose) 15 gm Q15M PRN PO DECREASED GLUCOSE; Start 09/05/17 at 21:30 Glucose (Glutose) 22.5 gm Q15M PRN PO DECREASED GLUCOSE; Start 09/05/17 at 21: 30 Dextrose (D50w Syringe) 25 ml Q15M PRN IV DECREASED GLUCOSE; Start 09/05/17 at 21:30 Dextrose (D50w Syringe) 50 ml Q15M PRN IV DECREASED GLUCOSE; Start 09/05/17 at 21:30 Glucagon (Glucagen) 1 mg Q15M PRN IM DECREASED GLUCOSE; Start 09/05/17 at 21: 30 Glucose (Glutose) 15 gm Q15M PRN BUCCAL DECREASED GLUCOSE; Start 09/05/17 at 21:30 Nystatin (Nystatin Powder) 1 applic BID TOP Last administered on 09/26/17 08: 40; Admin Dose 1 APPLIC; Start 09/06/17 at 09:00 Tamoxifen Citrate 20 mg 20 mg DAILY PO Last administered on 09/26/17 09:09; Admin Dose 20 MG; Start 09/06/17 at 13:00 Ceftriaxone Sodium (Rocephin) 50 ml @ 100 mls/hr Q24H IVPB Last administered on 09/26/17 13:59; Admin Dose 100 MLS/HR; Start 09/08/17 at 14:00 Diagnostic Test (Pha) (Accu-Chek) 1 ea 02 XX Last administered on 09/26/17 02 :22; Admin Dose 1 EA; Start 09/16/17 at 02:00 IV Flush (NS 10 ml) 10 ml PRN PRN IV IV PROTOCOL; Start 09/26/17 at 13:00 ZEUS TABOR MD Sep 26, 2017 15:48
[2017-09-26 20:02] VITALS: BP 122/67; PULSE 74; RESP 18
[2017-09-26] MEDS: DOCUSATE SODIUM 100 MG CAP PO SCH (21:10)
[2017-09-27] MEDS: ACCU-CHEK XX SCH (02:21)
[2017-09-27] MEDS: INSULIN ASPART [NOVOLOG] 3 ML PEN SC SCH ×2 (07:50→11:40)
[2017-09-27 08:01] VITALS: BP 120/67; RESP 18
[2017-09-27] MEDS: FAMOTIDINE 20 MG TAB PO SCH (10:49)
[2017-09-27] MEDS: NYSTATIN 30 GM POWDER BTL TOP SCH (10:49)
[2017-09-27] MEDS: DEXAMETHASONE 4 MG TAB PO SCH (10:49)
[2017-09-27] MEDS: TAMOXIFEN 10 MG TAB PO SCH (10:51)
--- NOTE | 2017-09-27 11:21 | PN ---
Date/Time of Note Date/Time of Note DATE: 09/27/17 TIME: 11:21 Assessment/Plan VTE Prophylaxis VTE Prophylaxis Intervention: contraindicated Lines/Catheters IV [facility] ([facility] PICC Line Central line still needed: Yes Urinary Cath still in place: No Assessment/Plan Assessment/Plan 1. Empyema 2/2 staph aureus s/p VATS 09/12/17 - Patient doing well and no acute respiratory issues - Pulmonology on board and recommendations appreciated. - CXR yesterday shows moderate pleural effusion and will need to follow up with Pulmonology as outpatient for thoracentesis if needed - On incentive spirometry - CT surgery on board and appreciate consultation. Will need to follow up as outpatient - ID on board and recommendations appreciated. continue on IV antibiotics until 10/07. PICC line placed and home health for PICC care - Ultrasound-guided thoracentesis performed, cultures showing staph aureus 2. Dysfunctional Pleurx catheter - Pulmonology on board and consultation appreciated - Respiratory status stable at this time 3. Cellulitis, area around catheter- improved - ID on board and recommendations appreciated 4. Metastatic breast cancer, lung, liver, brain, s/p craniectomy - currently receiving radiation therapy and tamoxifen and Decadron - Heme/onc on board and consultation appreciated. Plans to start Chemo on Monday with Dr. Doan - Radiation as scheduled. Next session is tonight 5. Diabetes mellitus - Currently stable 6. Obesity - Counseled about diet and improving exercise routine when able 7. Disposition - Continue antibiotics until 10/07 - Patient medically stable for discharge home. Home health arranged for PICC care and IV antibiotics - Ordered walker and toilet lift Subjective 24 Hr Interval Summary Free Text/Dictation Patient doing well after returning from radiation. No new complaints and no acute overnight events. Ready for discharge home. Exam/Review of Systems Vital Signs Vitals Vital Signs Date Time Temp Pulse Resp B/P Pulse Ox O2 Delivery O2 Flow Rate FiO2 09/27/17 08:01 98.0 91 18 120/67 98 09/26/17 20:02 Room Air Intake and Output 09/26/17 09/26/17 09/27/17 14:59 22:59 06:59 Intake Total 50 ml 960 ml 1400 ml Output Total 1000 ml Balance 50 ml 960 ml 400 ml Exam General: Patient awake and alert, no acute distress. Head: R side craniectomy site healing well. Eyes: EOMI, pupils reactive to light Neck: Supple, nontender, midline Respiratory: Diminished breath sounds on right, no wheezing or crackles. previous CT incision site healing well Cardiovascular: regular rate, no obvious murmurs Gastrointestinal: non-tender to palpation, bowel sounds heard. Neurological: Moves all extremities spontaneously Results Result Diagram: 09/26/17 0435 09/25/17 0447 Results 24 hrs Laboratory Tests Test 09/26/17 12:46 09/26/17 17:30 09/26/17 21:06 09/27/17 02:20 Bedside Glucose 180 138 232 H 173 Medications Medications Current Medications Dexamethasone (Decadron) 4 mg BID PO Last administered on 09/27/17 10:49; Admin Dose 4 MG; Start 09/05/17 at 21:00 Docusate Sodium (Colace) 200 mg QHS PO Last administered on 09/26/17 21:10; Admin Dose 200 MG; Start 09/05/17 at 21:00 Ondansetron HCl (Zofran Inj) 4 mg Q6H PRN IV NAUSEA AND/OR VOMITING; Start at 21:00 Acetaminophen (Tylenol Tab) 650 mg Q6H PRN PO PAIN LEVEL 1-3 OR FEVER Last administered on 09/13/17 07:13; Admin Dose 650 MG; Start 09/05/17 at 21:00 Oxycodone/ Acetaminophen (Percocet (5/ 325)) 1 tab Q6H PRN PO MODERATE PAIN LEVEL 4-6; Start 09/05/17 at 21:00 Morphine Sulfate (morphine) 2 mg Q4H PRN IV SEVERE PAIN LEVEL 7-10 Last administered on 09/13/17 02:47; Admin Dose 2 MG; Start 09/05/17 at 21:00 Docusate Sodium (Colace) 100 mg Q12H PRN PO CONSTIPATION Last administered on 09/23/17 22:10; Admin Dose 100 MG; Start 09/05/17 at 21:00 Magnesium Hydroxide (Milk Of Mag) 30 ml DAILY PRN PO CONSTIPATION; Start 09/05 at 21:00 Famotidine (Pepcid) 20 mg Q12 PO Last administered on 09/27/17 10:49; Admin Dose 20 MG; Start 09/05/17 at 21:00 Albuterol (Proventil 0.083% (Neb)) 2.5 mg Q2 PRN HHN SHORTNESS OF BREATH; Start 09/05/17 at 21:00 Miscellaneous Information 1 ea NOTE XX ; Start 09/05/17 at 21:30 Glucose (Glutose) 15 gm Q15M PRN PO DECREASED GLUCOSE; Start 09/05/17 at 21:30 Glucose (Glutose) 22.5 gm Q15M PRN PO DECREASED GLUCOSE; Start 09/05/17 at 21: 30 Dextrose (D50w Syringe) 25 ml Q15M PRN IV DECREASED GLUCOSE; Start 09/05/17 at 21:30 Dextrose (D50w Syringe) 50 ml Q15M PRN IV DECREASED GLUCOSE; Start 09/05/17 at 21:30 Glucagon (Glucagen) 1 mg Q15M PRN IM DECREASED GLUCOSE; Start 09/05/17 at 21: 30 Glucose (Glutose) 15 gm Q15M PRN BUCCAL DECREASED GLUCOSE; Start 09/05/17 at 21:30 Nystatin (Nystatin Powder) 1 applic BID TOP Last administered on 09/27/17 10: 49; Admin Dose 1 APPLIC; Start 09/06/17 at 09:00 Tamoxifen Citrate 20 mg 20 mg DAILY PO Last administered on 09/27/17 10:51; Admin Dose 20 MG; Start 09/06/17 at 13:00 Ceftriaxone Sodium (Rocephin) 50 ml @ 100 mls/hr Q24H IVPB Last administered on 09/26/17 13:59; Admin Dose 100 MLS/HR; Start 09/08/17 at 14:00 Diagnostic Test (Pha) (Accu-Chek) 1 ea 02 XX Last administered on 09/27/17 02 :21; Admin Dose 1 EA; Start 09/16/17 at 02:00 IV Flush (NS 10 ml) 10 ml PRN PRN IV IV PROTOCOL; Start 09/26/17 at 13:00 ZEUS TABOR MD Sep 27, 2017 11:21
[2017-09-27] MEDS ORDERED: WALK1EAC23 MC (11:32)
--- NOTE | 2017-09-27 11:36 | CONS ---
Date/Time of Note Date/Time of Note DATE: 09/27/17 TIME: 11:36 Consult Date/Type/Reason Admit Date/Time Sep 05, 2017 at 18:29 Initial Consult Date 09/06/17 Type of Consultation: Pulmonary Ordering Provider: MINDY NEGRON Subjective Patient remains comfortable this morning. No shortness of breath no desaturation on ambulation. Objective Vital Signs Date Time Temp Pulse Resp B/P Pulse Ox O2 Delivery O2 Flow Rate FiO2 09/27/17 08:01 98.0 91 18 120/67 98 09/26/17 20:02 Room Air Intake and Output 09/26/17 09/26/17 09/27/17 14:59 22:59 06:59 Intake Total 50 ml 960 ml 1400 ml Output Total 1000 ml Balance 50 ml 960 ml 400 ml Exam GENERAL: Well-nourished well-developed lady comfortable at rest no acute distress VITAL SIGNS: per chart NECK: Supple. No JVD or lymphadenopathy. CARDIAC EXAM: S1, S2. No added sounds or murmurs. CHEST: Diminished air entry ABDOMEN: Soft, nontender. No guarding or rebound. EXTREMITIES: No cyanosis, clubbing or edema. NEUROLOGIC: Generalized weakness. No focal deficits. Results/Medications Result Diagram: 09/26/17 0435 09/25/17 0447 Results 24 hrs Laboratory Tests Test 09/26/17 12:46 09/26/17 17:30 09/26/17 21:06 09/27/17 02:20 Bedside Glucose 180 138 232 H 173 Medications Current Medications Dexamethasone (Decadron) 4 mg BID PO Last administered on 09/27/17 10:49; Admin Dose 4 MG; Start 09/05/17 at 21:00 Docusate Sodium (Colace) 200 mg QHS PO Last administered on 09/26/17 21:10; Admin Dose 200 MG; Start 09/05/17 at 21:00 Ondansetron HCl (Zofran Inj) 4 mg Q6H PRN IV NAUSEA AND/OR VOMITING; Start at 21:00 Acetaminophen (Tylenol Tab) 650 mg Q6H PRN PO PAIN LEVEL 1-3 OR FEVER Last administered on 09/13/17 07:13; Admin Dose 650 MG; Start 09/05/17 at 21:00 Oxycodone/ Acetaminophen (Percocet (5/ 325)) 1 tab Q6H PRN PO MODERATE PAIN LEVEL 4-6; Start 09/05/17 at 21:00 Morphine Sulfate (morphine) 2 mg Q4H PRN IV SEVERE PAIN LEVEL 7-10 Last administered on 09/13/17 02:47; Admin Dose 2 MG; Start 09/05/17 at 21:00 Docusate Sodium (Colace) 100 mg Q12H PRN PO CONSTIPATION Last administered on 09/23/17 22:10; Admin Dose 100 MG; Start 09/05/17 at 21:00 Magnesium Hydroxide (Milk Of Mag) 30 ml DAILY PRN PO CONSTIPATION; Start 09/05 at 21:00 Famotidine (Pepcid) 20 mg Q12 PO Last administered on 09/27/17 10:49; Admin Dose 20 MG; Start 09/05/17 at 21:00 Albuterol (Proventil 0.083% (Neb)) 2.5 mg Q2 PRN HHN SHORTNESS OF BREATH; Start 09/05/17 at 21:00 Miscellaneous Information 1 ea NOTE XX ; Start 09/05/17 at 21:30 Glucose (Glutose) 15 gm Q15M PRN PO DECREASED GLUCOSE; Start 09/05/17 at 21:30 Glucose (Glutose) 22.5 gm Q15M PRN PO DECREASED GLUCOSE; Start 09/05/17 at 21: 30 Dextrose (D50w Syringe) 25 ml Q15M PRN IV DECREASED GLUCOSE; Start 09/05/17 at 21:30 Dextrose (D50w Syringe) 50 ml Q15M PRN IV DECREASED GLUCOSE; Start 09/05/17 at 21:30 Glucagon (Glucagen) 1 mg Q15M PRN IM DECREASED GLUCOSE; Start 09/05/17 at 21: 30 Glucose (Glutose) 15 gm Q15M PRN BUCCAL DECREASED GLUCOSE; Start 09/05/17 at 21:30 Nystatin (Nystatin Powder) 1 applic BID TOP Last administered on 09/27/17 10: 49; Admin Dose 1 APPLIC; Start 09/06/17 at 09:00 Tamoxifen Citrate 20 mg 20 mg DAILY PO Last administered on 09/27/17 10:51; Admin Dose 20 MG; Start 09/06/17 at 13:00 Ceftriaxone Sodium (Rocephin) 50 ml @ 100 mls/hr Q24H IVPB Last administered on 09/26/17 13:59; Admin Dose 100 MLS/HR; Start 09/08/17 at 14:00 Diagnostic Test (Pha) (Accu-Chek) 1 ea 02 XX Last administered on 09/27/17 02 :21; Admin Dose 1 EA; Start 09/16/17 at 02:00 IV Flush (NS 10 ml) 10 ml PRN PRN IV IV PROTOCOL; Start 09/26/17 at 13:00 Assessment/Plan Chief Complaint/Hosp Course Assessment 1. Metastatic breast cancer with recurrent right pleural effusion. Cultures growing gram-positive cocci consistent with staph aureus. 2. Loculated pleural effusion possible empyema status post decortication and pleurodesis. Chest tube now removed. 3. WHAR[employer]ER metastasis currently receiving steroids and radiation therapy Plan 1. Status post chest tube placement. Moderate pleural effusion. 2. Continue oncology recommendations continues radiation therapy for WHARF [employer]ER metastasis 3. Leukocytosis likely secondary to dexamethasone. DC home. Follow-up with me in the office may require repeat thoracentesis. Continue radiation therapy Discharge planning. Problems: MARTINEZ MASCORRO MD, [facility] Sep 27, 2017 11:36
--- NOTE | 2017-09-27 11:40 | PDOCDIS ---
Discharge Instructions DIAGNOSIS Discharge Diagnosis 1. Empyema 2/2 staph aureus s/p VATS 09/12/17 2. Dysfunctional Pleurx catheter 3. Cellulitis, area around catheter- improved 4. Metastatic breast cancer, lung, liver, brain, s/p craniectomy 5. Diabetes mellitus 6. Obesity CONDITION Patient Condition: Good HOME CARE INSTRUCTIONS: Special Diet: carb controlled diet ACTIVITY: Activity Restrictions: Slowly Increase Activity Bathing Restrictions: Shower FOLLOW UP/APPOINTMENTS Follow-up Plan 1. Follow up with Dr. Doan on Monday as scheduled 2. Follow up with Dr. Freeman in 1 week 3. Follow up with Dr. Estrada in 1 week 4. Continue antibiotics until 10/07 5. If experiencing any worsening of shortness of breath, return to the ED REFERRALS Other Referrals Eleazar Estrada MD Specialty: Cardiothoracic Surgery Office Address [address] [place] [address] Office Eh Freeman MD Specialty: Pulmonology/Critical Care Medicine Office Address [address] [place] [address] Office Alma Doan MD Specialty: Oncology, Hematology Comments Office Address [address] [place] [address] Office ZEUS TABOR MD Sep 27, 2017 11:40
--- NOTE | 2017-09-27 11:42 | DS ---
Date/Time of Note Date/Time of Note DATE: 09/27/17 TIME: 11:42 Discharge Summary Admission/Discharge Info Admit Date/Time Sep 05, 2017 at 18:29 Discharge Date/Time 09/27/17 Discharge Diagnosis 1. Empyema 2/2 staph aureus s/p VATS 09/12/17 2. Dysfunctional Pleurx catheter 3. Cellulitis, area around catheter- improved 4. Metastatic breast cancer, lung, liver, brain, s/p craniectomy 5. Diabetes mellitus 6. Obesity Patient Condition: Good Consults Pulmonology CT Surgery Oncology Infectious Disease Procedures 1. Video-assisted thoracic surgery, pulmonary decortication. 2. Right pulmonary pleurodesis. 3. Bronchoscopy. Hx of Present Illness 39-year-old female with metastatic breast cancer who was residing at [facility] rehab for pleural effusion Pleurx catheter therapy. There may have been some issues lately and were unable to drain her fluid. She is noticed that the fluid has been leaking and was sent to the ER for eval. Denies any fever chills loss of appetite. She does notice some drainage around the chest tube site. ER: Stable vital signs Exam No pallor adenopathy icterus. Postop craniectomy site C/D/I Regular no murmur rub gallop Dimin bs; on right no tachypnea. Rt chest tube in place probably; dressing soaked Bs + nt nd; no r/r/g Mild edema negative [facility] Hospital Course Patient was admitted and Pulmonology was consulted for dysfunctional pleurx catheter. ID was consulted for antibiotic recommendations for cellulitis surrounding pleurx catheter site. Decadron and Tamoxifen were continued and patient set up to continue receiving scheduled Radiation treatments. She also underwent a right thoracentesis of pleural effusion on 09/06. There was concern about loculated pleural effusion and CT chest was performed which confirmed a right loculated pleural effusion with ?empyema. Pleural fluid from thoracentesis was growing staph aureus and patient continued on appropriate antibiotics. CT surgery was consulted for VATS and pleurodesis which was performed on 09/12. Chest tube was placed and patient transferred to ICU following procedure which she tolerated well. Patient was doing well and downgraded to Telemetry then Med/Surg to continue chest tube care, IV antibiotics, and monitoring. Patient was maintained on chest tube to wall suction and output was monitored. Output decreased daily and chest tube was discontinued on 09/26. Repeat CXR showed moderate right sided pleural effusion but patient was saturating well on room air. Patient did not want to return to SNF and home health services including PICC line care, IV antibiotics, and physical therapy were arranged. Patient was informed she will need IV antibiotics until 10/07 and continue being monitored by CT surgery and pulmonology as outpatient. Patient plans to follow up with Dr. Doan on Monday to being chemotherapy. Patient was discharged home in good condition. Home Meds Active Scripts Blood-Glucose Meter (BLOOD GLUCOSE MONITORING) 1 Each Kit, 1 EACH MC for ELEVATED GLUCOSE, #1 Prov:ZEUS TABOR MD 09/27/17 Front Wheel Walker* (Front Wheel Walker*) 1 Each Dme, 1 EACH MC DIRECTED, #1 DME 0 Refills Prov:ZEUS TABOR MD 09/27/17 Reported Medications Tamoxifen Citrate* (Nolvadex*) 20 Mg Tablet, 20 MG PO DAILY, TAB 09/05/17 Famotidine* (Famotidine*) 20 Mg Tablet, 20 MG PO DAILY, #30 TAB 09/05/17 Dexamethasone* (Dexamethasone*) 4 Mg Tablet, 4 MG PO BID, TAB 09/05/17 Cranberry Extract (Cranberry) 425 Mg Capsule, 425 MG PO DAILY, CAP 09/05/17 Acetaminophen* (Acetaminophen*) 500 MG Extra Strength Tablet, 1000 MG PO Q6H Y for PAIN -04/22, TAB 09/05/17 Sod Phosphate/Sod Biphosphate* (Fleet* Enema Pediatric) 66.6 Ml Soln, 66.6 ML MS Q2D Y for CONSTIPATION, ENEMA 09/05/17 Bisacodyl* (Bisacodyl*) 10 Mg Supp, 10 MG MS Q24H Y for PRN, SUPP 09/05/17 Magnesium Hydroxide* (Milk Of Magnesia*) 400 Mg/5 Ml Oral.susp, 30 ML PO QHS, ML 09/05/17 Docusate Sodium* (Colace*) 100 Mg Capsule, 200 MG PO QHS, #30 CAP 09/05/17 Insulin Aspart* (Novolog Insulin Pen*) 100 Unit/Ml Soln, 0 SC .SLIDING SCALE AC , EA 0-150=0, 151-200=2 UNITS, 201-250=4 UNITS, 251-300=6 UNITS, 301-350=8 UNITS, 351-400=10 UNITS,>400=12 UNITS; EMERY CASTRO IF BS BELOW 70 09/05/17 Discontinued Reported Medications Acetaminophen* (Tylenol*) 325 Mg Tablet, 650 MG PO Q6H Y for MILD PAIN LEVEL 1-3 , TAB AND FOR FEVER 100 AND ABOVE 09/05/17 Follow-up Plan 1. Follow up with Dr. Doan on Monday as scheduled 2. Follow up with Dr. Freeman in 1 week 3. Follow up with Dr. Estrada in 1 week 4. Continue antibiotics until 10/07 5. If experiencing any worsening of shortness of breath, return to the ED Primary Care Provider Alma Doan M.D. Time spent on discharge: > 30 minutes Pending Labs Laboratory Tests Test 09/26/17 12:46 09/26/17 17:30 09/26/17 21:06 09/27/17 02:20 Bedside Glucose 180mg/dL (70-220) 138mg/dL (70-220) 232mg/dL (70-220) 173mg/dL (70-220) ZEUS TABOR MD Sep 27, 2017 11:42
--- NOTE | 2017-09-27 11:57 | CONS ---
Date/Time of Note Date/Time of Note DATE: 09/27/17 TIME: 11:56 Consult Date/Type/Reason Admit Date/Time Sep 05, 2017 at 18:29 Initial Consult Date 09/07/17 Type of Consultation: ID Ordering Provider: MINDY NEGRON Objective Vital Signs Date Time Temp Pulse Resp B/P Pulse Ox O2 Delivery O2 Flow Rate FiO2 09/27/17 08:01 98.0 91 18 120/67 98 09/26/17 20:02 Room Air Intake and Output 09/26/17 09/26/17 09/27/17 15:00 23:00 07:00 Intake Total 50 ml 960 ml 1400 ml Output Total 1000 ml Balance 50 ml 960 ml 400 ml Results/Medications Result Diagram: 09/26/17 0435 09/25/17 0447 Results 24 hrs Laboratory Tests Test 09/26/17 12:46 09/26/17 17:30 09/26/17 21:06 09/27/17 02:20 Bedside Glucose 180 138 232 H 173 Medications Current Medications Dexamethasone (Decadron) 4 mg BID PO Last administered on 09/27/17 10:49; Admin Dose 4 MG; Start 09/05/17 at 21:00 Docusate Sodium (Colace) 200 mg QHS PO Last administered on 09/26/17 21:10; Admin Dose 200 MG; Start 09/05/17 at 21:00 Ondansetron HCl (Zofran Inj) 4 mg Q6H PRN IV NAUSEA AND/OR VOMITING; Start at 21:00 Acetaminophen (Tylenol Tab) 650 mg Q6H PRN PO PAIN LEVEL 1-3 OR FEVER Last administered on 09/13/17 07:13; Admin Dose 650 MG; Start 09/05/17 at 21:00 Oxycodone/ Acetaminophen (Percocet (5/ 325)) 1 tab Q6H PRN PO MODERATE PAIN LEVEL 4-6; Start 09/05/17 at 21:00 Morphine Sulfate (morphine) 2 mg Q4H PRN IV SEVERE PAIN LEVEL 7-10 Last administered on 09/13/17 02:47; Admin Dose 2 MG; Start 09/05/17 at 21:00 Docusate Sodium (Colace) 100 mg Q12H PRN PO CONSTIPATION Last administered on 09/23/17 22:10; Admin Dose 100 MG; Start 09/05/17 at 21:00 Magnesium Hydroxide (Milk Of Mag) 30 ml DAILY PRN PO CONSTIPATION; Start 09/05 at 21:00 Famotidine (Pepcid) 20 mg Q12 PO Last administered on 09/27/17 10:49; Admin Dose 20 MG; Start 09/05/17 at 21:00 Albuterol (Proventil 0.083% (Neb)) 2.5 mg Q2 PRN HHN SHORTNESS OF BREATH; Start 09/05/17 at 21:00 Miscellaneous Information 1 ea NOTE XX ; Start 09/05/17 at 21:30 Glucose (Glutose) 15 gm Q15M PRN PO DECREASED GLUCOSE; Start 09/05/17 at 21:30 Glucose (Glutose) 22.5 gm Q15M PRN PO DECREASED GLUCOSE; Start 09/05/17 at 21: 30 Dextrose (D50w Syringe) 25 ml Q15M PRN IV DECREASED GLUCOSE; Start 09/05/17 at 21:30 Dextrose (D50w Syringe) 50 ml Q15M PRN IV DECREASED GLUCOSE; Start 09/05/17 at 21:30 Glucagon (Glucagen) 1 mg Q15M PRN IM DECREASED GLUCOSE; Start 09/05/17 at 21: 30 Glucose (Glutose) 15 gm Q15M PRN BUCCAL DECREASED GLUCOSE; Start 09/05/17 at 21:30 Nystatin (Nystatin Powder) 1 applic BID TOP Last administered on 09/27/17 10: 49; Admin Dose 1 APPLIC; Start 09/06/17 at 09:00 Tamoxifen Citrate 20 mg 20 mg DAILY PO Last administered on 09/27/17 10:51; Admin Dose 20 MG; Start 09/06/17 at 13:00 Ceftriaxone Sodium (Rocephin) 50 ml @ 100 mls/hr Q24H IVPB Last administered on 09/26/17 13:59; Admin Dose 100 MLS/HR; Start 09/08/17 at 14:00 Diagnostic Test (Pha) (Accu-Chek) 1 ea 02 XX Last administered on 09/27/17 02 :21; Admin Dose 1 EA; Start 09/16/17 at 02:00 IV Flush (NS 10 ml) 10 ml PRN PRN IV IV PROTOCOL; Start 09/26/17 at 13:00 Assessment/Plan Chief Complaint/Hosp Course SUBJECTIVE: Alert, feels good, CT removed, no fevers. INDWELLINGS: Right chest tube. ANTIMICROBIALS: Rocephin. PHYSICAL EXAMINATION: GENERAL: This is an obese, well-developed, middle-aged woman who is awake, in no distress. HEENT: Head atraumatic, normocephalic. Sclerae anicteric. Buccal mucosa dry. NECK: Supple. CHEST: Rise symmetrical. Breath sounds diminished to bases. HEART: S1, S2. ABDOMEN: Soft, bowel tones present. EXTREMITIES: Without cyanosis. ASSESSMENT: 1. Right-sided loculated pleural effusion consistent with empyema with fluid culture growing oxacillin-sensitive Staphylococcus aureus. The patient is status post decortication and pleurodesis on 09/12/2017. 2. Metastatic breast cancer. 3. Diabetes. 4. History of craniectomy for brain metastasis. PLAN: The patient remains stable. Continue abx till Oct 07 for empyema. Pulmonary/CTS/oncology rec-s [facility] staff Problems: ZULEYMA ALEX NP Sep 27, 2017 11:56
[2017-09-27] MEDS ORDERED: BLOO-1101 MC (13:02)
[2017-09-27] MEDS: CEFTRIAXONE 1 GM/50 ML (PMX) 50 ML IVPB SCH (13:36)
== END 2017-09-27 16:50 | disposition home health service (06) | DRG 907 ==
LOC: E/R 17:11 → MS2 18:29 → ICU 09-12 20:04 → TEL 09-14 12:55 → MS1 09-15 08:05
PROVIDERS: ADMIT Hospitalist; ATTEND Hospitalist
PROC: 0W9G3ZX Drainage of Peritoneal Cavity, Percutaneous Approach, Diagnostic (ICD-10-PCS; 2017-09-06)
PROC: 0BJ08ZZ Inspection of Tracheobronchial Tree, Via Natural or Artificial Opening Endoscopic (ICD-10-PCS; 2017-09-12)
PROC: 0B5N4ZZ Destruction of Right Pleura, Percutaneous Endoscopic Approach (ICD-10-PCS; principal; 2017-09-12 15:30)
PROC: 02H633Z Insertion of Infusion Device into Right Atrium, Percutaneous Approach (ICD-10-PCS; 2017-09-26)
PROC: B244YZZ Ultrasonography of Right Heart using Other Contrast (ICD-10-PCS; 2017-09-26)
DX: T85.618A Breakdown (mechanical) of other specified internal prosthetic devices, implants and grafts, initial encounter (principal); J86.9 Pyothorax without fistula; J90 Pleural effusion, not elsewhere classified; C78.7 Secondary malignant neoplasm of liver and intrahepatic bile duct; C78.01 Secondary malignant neoplasm of right lung; C79.31 Secondary malignant neoplasm of brain; R65.10 Systemic inflammatory response syndrome (SIRS) of non-infectious origin without acute organ dysfunction; L03.313 Cellulitis of chest wall; C79.89 Secondary malignant neoplasm of other specified sites; T85.79XA Infection and inflammatory reaction due to other internal prosthetic devices, implants and grafts, initial encounter; C50.911 Malignant neoplasm of unspecified site of right female breast; T85.628A Displacement of other specified internal prosthetic devices, implants and grafts, initial encounter; D64.9 Anemia, unspecified; E66.9 Obesity, unspecified; B95.62 Methicillin resistant Staphylococcus aureus infection as the cause of diseases classified elsewhere; Y83.8 Other surgical procedures as the cause of abnormal reaction of the patient, or of later complication, without mention of misadventure at the time of the procedure; Z92.3 Personal history of irradiation; Z68.39 Body mass index [BMI] 39.0-39.9, adult; Z98.890 Other specified postprocedural states
CPT/HCPCS: 36430; 36569; 71010; 71250; 76937; 76942; 77014; 77412; 80048; 80053; 80069; 80202; 81001; 82042; 82945; 82962; 83036; 83605; 83615; 83735; 84100; 84157; 84443; 84484; 85025; 85049; 85610; 85670; 85730; 86078; 86850; 86900; 86901; 86920; 87040; 87070; 87075; 87081; 87102; 87116; 88307; 89051; 96365; 96366; 96368; 97162; C1769; J0690; J0696; J1644; J1815; J2250; J2270; J2370; J2405; J2710; J2795; J3010; J3370; J7030; J7040; J7050; J7120; P9016

== ENCOUNTER 2017-10-03 05:21 | Inpatient (IN) | payer MEDICARE, OTHER ==
[~2017-10-03] VITALS: Ht 162.6 cm; Wt 110.0 kg
[~2017-10-03 05:21] MED LIST changes: +ACET-141 PO; +BISA10SU75 PR; +BLOO-1101 MC; +CRAN425C2 PO; -DEC4 PO; +DEXA4TAB PO; +DOCU-144 PO; +FLEETPED PR; +MAGN400O4 PO; -NOL10 PO; +TAMO20TA PO; +WALK1EAC23 MC
[2017-10-03] MEDS ORDERED: AZTREONAM 1 GM/NS (PMX) 50 ML IVPB STA (06:28)
[2017-10-03] MEDS ORDERED: VANCOMYCIN 1 GM (PMX) 250 ML IVPB ONE (06:30)
[2017-10-03 07:07] LABS: ABNORMAL IP MESSAGE 1; BASOPHILS % 0.2 % (0.0-2.0); EOSINOPHILS % 0.2 % (0.0-7.0); HEMATOCRIT 30.7 % (37.0-47.0); HEMOGLOBIN 9.3 g/dl (12.0-16.0); LYMPHOCYTES # 1.3 10^3/ul (0.8-2.9); LYMPHOCYTES % 13.3 % (15.0-51.0); MEAN CORPUSCULAR HEMOGLOBIN 24.6 pg (29.0-33.0); MEAN CORPUSCULAR HGB CONC 30.3 g/dl (32.0-37.0); MEAN CORPUSCULAR VOLUME 81.2 fl (82.0-101.0); MEAN PLATELET VOLUME 8.8 fl (7.4-10.4); MONOCYTE # 0.8 10^3/ul (0.3-0.9); MONOCYTES % 7.9 % (0.0-11.0); NEUTROPHIL # 7.4 10^3/ul (1.6-7.5); NEUTROPHILS % 75.4 % (39.0-77.0); PLATELET COUNT 110 10^3/UL (140-415); RED BLOOD COUNT 3.78 10^6/ul (4.20-5.40); RED CELL DISTRIBUTION WIDTH 23.1 % (11.5-14.5); WHITE BLOOD COUNT 9.9 10^3/ul (4.8-10.8)
[2017-10-03 07:08] LABS: POSITIVE DIFF @See below
--- NOTE | 2017-10-03 07:10 | RADRPT ---
PROCEDURE: XR Chest. CLINICAL INDICATION: Possible Sepsis TECHNIQUE: Single frontal view of the chest was obtained COMPARISON: CR CHEST 03/23/2016; CR CHEST 03/22/2016; CR CHEST 03/17/2016 FINDINGS: A left upper extremity PICC line tip overlies the mid superior vena cava. There is persistent right- sided volume loss. Slight increased right pleural effusion with consolidation or atelectasis. There an interval increased bilateral, right greater than left perihilar air space disease. No evidence o f a pneumothorax. IMPRESSION: 1. Minimal increased right-sided pleural effusion with adjacent consolidation or atelectasis. 2. Increased bilateral, right greater than left perihilar air space disease. RPTAT: [facility]RS[facility] Physician Clarissa Date Time Electronically viewed and signed by Physician Clarissa on 10/03/2017 07:09 RR/
--- NOTE | 2017-10-03 07:30 | RADRPT ---
PROCEDURE: CT Brain without contrast. CLINICAL INDICATION: Sepsis TECHNIQUE: Axial images from the skull base through the vertex without IV contrast. Multiplanar r eformatted images were made. Images were reviewed on a PACS workstation. The CTDIvol is 45.01 mGy and the DLP is 810.25 mGycm. One or more of the following dose reduction techniques were used: auto mated exposure control, adjustment of the mA and/or kV according to patient size, or use of iterativ e reconstruction technique. DICOM images are available. COMPARISON: MRI from 08/12/2017 FINDINGS: Again seen are changes from prior right frontoparietal craniectomy with resection of large metastati c lesion. The metastatic lesions in the left cerebellum and occipital lobe seen by MRI are not as we ll appreciated by CT. The study is slightly limited by motion artifact. There is a small area of enc ephalomalacia at the right frontal lobe resection site. No definite acute territorial infarction or acute intracranial hemorrhage. No midline shift is seen. The visualized paranasal sinuses and masto ids are clear.. IMPRESSION: Postsurgical changes from prior right frontal lobe metastasis resection with focal area of encephalo malacia seen. The other metastatic lesions seen on prior MRI are not well demonstrated. If symptoms persist, follow-up MRI may be helpful. RPTAT: [facility] Physician Carin Date Time Electronically viewed and signed by Physician Carin on 10/03/2017 07:30 LE/
[2017-10-03 07:38] LABS: INR 1.14; PROTIME 14.6 Sec (12.2-14.2); PT RATIO 1.1
[2017-10-03 07:39] LABS: PARTIAL THROMBOPLASTIN TIME 29.6 Sec (25.0-35.0)
[2017-10-03 07:45] LABS: ALANINE AMINOTRANSFERASE 27 IU/L (13-69); ALBUMIN 2.7 g/dl (3.3-4.9); ALBUMIN/GLOBULIN RATIO 0.87; ALKALINE PHOSPHATASE 89 IU/L (42-121); ANION GAP 14 (8-16); ASPARTATE AMINO TRANSFERASE 56 IU/L (15-46); BILIRUBIN,INDIRECT 0.3 mg/dl (0-1.1); BILIRUBIN,TOTAL 0.3 mg/dl (0.2-1.3); BLOOD UREA NITROGEN 13 mg/dl (7-20); CALCIUM 8.3 mg/dl (8.4-10.2); CARBON DIOXIDE 24 mmol/L (21-31); CHLORIDE 106 mmol/L (97-110); CREATININE 0.38 mg/dl (0.44-1.00); GLUCOSE 174 mg/dl (70-220); POTASSIUM 3.7 mmol/L (3.5-5.1); SODIUM 140 mmol/L (135-144); TOTAL PROTEIN 5.8 g/dl (6.1-8.1)
[2017-10-03 07:58] LABS: TROPONIN-I < 0.012 ng/ml (0.00-0.12)
[2017-10-03] MEDS ORDERED: SODIUM CHLORIDE 0.9% 1L BAG IV* STA (08:09)
--- NOTE | 2017-10-03 08:24 | ERD ---
ER Documentation Chief Complaint Chief Complaint SOB w/a little walk, dizzy, weaknesss, takes home abx IV via L port cath HPI Patient is a 47-year-old female with breast cancer and recent pneumonia who presents with shortness of breath. She says that she has shortness of breath and weakness which started yesterday. 2 nights ago she had a subjective fever. She denies cough. She has been receiving antibiotics through a PICC line for "a lung infection". She was supposed to have radiation last dose done yesterday but she was too weak to go. She was so weak today that she came to the emergency department. She denies bleeding. Her oncologist is Dr. Doan. ROS All systems reviewed and are negative except as per history of present illness. Medications Home Meds Active Scripts Blood-Glucose Meter (BLOOD GLUCOSE MONITORING) 1 Each Kit, 1 EACH MC for ELEVATED GLUCOSE, #1 Prov:ZEUS TABOR MD 09/27/17 Front Wheel Walker* (Front Wheel Walker*) 1 Each Dme, 1 EACH MC DIRECTED, #1 DME 0 Refills Prov:ZEUS TABOR MD 09/27/17 Reported Medications Tamoxifen Citrate* (Nolvadex*) 20 Mg Tablet, 20 MG PO DAILY, TAB 09/05/17 Famotidine* (Famotidine*) 20 Mg Tablet, 20 MG PO DAILY, #30 TAB 09/05/17 Dexamethasone* (Dexamethasone*) 4 Mg Tablet, 4 MG PO BID, TAB 09/05/17 Cranberry Extract (Cranberry) 425 Mg Capsule, 425 MG PO DAILY, CAP 09/05/17 Acetaminophen* (Acetaminophen*) 500 MG Extra Strength Tablet, 1000 MG PO Q6H Y for PAIN 4-04/22, TAB 09/05/17 Sod Phosphate/Sod Biphosphate* (Fleet* Enema Pediatric) 66.6 Ml Soln, 66.6 ML MD Q2D Y for CONSTIPATION, ENEMA 09/05/17 Bisacodyl* (Bisacodyl*) 10 Mg Supp, 10 MG MD Q24H Y for PRN, SUPP 09/05/17 Magnesium Hydroxide* (Milk Of Magnesia*) 400 Mg/5 Ml Oral.susp, 30 ML PO QHS, ML 09/05/17 Docusate Sodium* (Colace*) 100 Mg Capsule, 200 MG PO QHS, #30 CAP 09/05/17 Insulin Aspart* (Novolog Insulin Pen*) 100 Unit/Ml Soln, 0 SC .SLIDING SCALE AC , EA 0-150=0, 151-200=2 UNITS, 201-250=4 UNITS, 251-300=6 UNITS, 301-350=8 UNITS, 351-400=10 UNITS,>400=12 UNITS; EMERY CASTRO IF BS BELOW 70 09/05/17 Discontinued Reported Medications Acetaminophen* (Tylenol*) 325 Mg Tablet, 650 MG PO Q6H Y for MILD PAIN LEVEL 1-3 , TAB AND FOR FEVER 100 AND ABOVE 09/05/17 Allergies Allergies: Coded Allergies: Penicillins (Verified Allergy, Mild, 09/05/17) hydrocodone bit (Verified Adverse Reaction, Mild, HEADACHE, NAUSEA AND VOMITING, ANAPHYLACTIC SYMPTOMS, 09/05/17) PMhx/Soc History of Surgery: Yes (BRQAIN SURGERY, RIGHT MASECTOMY, ) Anesthesia Reaction: No Hx Neurological Disorder: No Hx Respiratory Disorders: Yes (PLEURAL EFFUSION) Hx Cardiac Disorders: No Hx Psychiatric Problems: No Hx Miscellaneous Medical Probl: Yes (See EMR for detail. ) Hx Alcohol Use: No Hx Substance Use: No Hx Tobacco Use: No FmHx Family History: No diabetes Physical Exam Vitals Vital Signs Date Time Temp Pulse Resp B/P Pulse Ox O2 Delivery O2 Flow Rate FiO2 10/03/17 05:31 98.4 103 20 136/78 98 Physical Exam Const: Moderate distress Head: Atraumatic Eyes: Normal Conjunctiva ENT: Normal External Ears, Nose and Mouth. Neck: Full range of motion..~ No meningismus. Resp: Decreased breath sounds bilaterally Cardio: Regular rate and rhythm, no murmurs Abd: Soft, non tender, non distended. Normal bowel sounds Skin: Pale skin Back: No midline or flank tenderness Ext: No cyanosis, or edema Neur: Awake and alert Psych: Normal Mood and Affect Result Diagram: 10/03/17 0652 10/03/17 0652 Results 24 hrs Laboratory Tests Test 10/03/17 06:52 White Blood Count 9.910^3/ul Red Blood Count 3.7810^6/ul Hemoglobin 9.3g/dl Hematocrit 30.7% Mean Corpuscular Volume 81.2fl Mean Corpuscular Hemoglobin 24.6pg Mean Corpuscular Hemoglobin Concent 30.3g/dl Red Cell Distribution Width 23.1% Platelet Count 38243^3/UL Mean Platelet Volume 8.8fl Neutrophils % 75.4% Lymphocytes % 13.3% Monocytes % 7.9% Eosinophils % 0.2% Basophils % 0.2% Nucleated Red Blood Cells % 0.0/100WBC Neutrophils # 7.410^3/ul Lymphocytes # 1.310^3/ul Monocytes # 0.810^3/ul Eosinophils # 0.010^3/ul Basophils # 0.010^3/ul Nucleated Red Blood Cells # 0.010^3/ul Prothrombin Time 14.6Sec Prothrombin Time Ratio 1.1 INR International Normalized Ratio 1.14 Activated Partial Thromboplast Time 29.6Sec Sodium Level 140mmol/L Potassium Level 3.7mmol/L Chloride Level 106mmol/L Carbon Dioxide Level 24mmol/L Anion Gap 14 Blood Urea Nitrogen 13mg/dl Creatinine 0.38mg/dl Glucose Level 174mg/dl Lactic Acid Level 3.6mmol/L Calcium Level 8.3mg/dl Total Bilirubin 0.3mg/dl Direct Bilirubin 0.00mg/dl Indirect Bilirubin 0.3mg/dl Aspartate Amino Transf (AST/SGOT) 56IU/L Alanine Aminotransferase (ALT/SGPT) 27IU/L Alkaline Phosphatase 89IU/L Troponin I < 0.012ng/ml Total Protein 5.8g/dl Albumin 2.7g/dl Globulin 3.10g/dl Albumin/Globulin Ratio 0.87 Current Medications Medications (Trade) Dose Ordered Sig/Mariza Route PRN Reason Start Time Stop Time Status Last Admin Dose Admin Vancomycin HCl 250 ml @ 125 mls/hr ONCE ONCE IVPB 10/03/17 06:30 10/03/17 08:29 Aztreonam (Azactam 1gm/NS (Pmx)) 50 ml @ 100 mls/hr ONCE STAT IVPB 10/03/17 06:28 10/03/17 06:57 DC Sodium Chloride (NS) 3,440 ml BOLUS OVER 2 HOURS STAT IV* 10/03/17 08:09 10/03/17 08:10 DC Ondansetron HCl (Zofran Inj) 4 mg ER BRIDGE PRN IV NAUSEA AND/OR VOMITING 10/03/17 08:30 10/04/17 08:29 Acetaminophen (Tylenol Tab) 650 mg ER BRIDGE PRN PO MILD PAIN/FEVER 10/03/17 08:30 10/04/17 08:29 Procedures/MDM Chest x-ray shows infiltrates per radiology. EKG read by me: Rate/Rhythm: Regular rate and rhythm at a rate of 92 Intervals: Normal Impression: No evidence of ischemia or arrhythmia Admit MDM: Patient's infectious symptoms have not stabilized and the patient is at risk of rapid decompensation. The patient will be admitted for careful hydration, antibiotic therapy, and infectious source control. Severe Sepsis criteria: Infectious source: Pneumonia End organ damage indicated by: Lactate greater than 2 Sepsis Management: Time of recognition of sepsis: 6:52 AM Within 3 hours of recognition: Blood cultures x 2 before broad-spectrum antibiotics: Yes 30 ml/kg NS bolus Completed Initial lactate 3.6 Repeat lactate pending Time of recognition of septic shock: No septic shock Septic Shock Assessment: Any lactic acid > 4.0 No Persistent hypotension (SBP < 90 or 40 mmHg drop, MAP < 65) despite 30 mL/kg IV fluid bolus No Volume Re-assessment for Septic Shock (post 30 ml/kg bolus): No septic shock at this time Persistent Hypotension Treatment: Comfort care No Central line Not Required Vasopressor started Not required I considered further perfusion assessment with CVP measurement, SCVO2, bedside ultrasound volume assessment, passive leg raise, trial of further fluid bolus. And proceeded with 30 ml/kg fluid bolus of NSS, broad spectrum antibiotics, and admission. Accepting Care Team Current data and ongoing care discussed. Admitting Physician: Dr. Rodriguez from the panel team for admission Shingle Weaver(s): None Outstanding Data: Culture results and repeat lactic acid Critical Care: Critical care time 35 minutes excluding all billable procedures Emergent fluid management while maintaining close respiratory support. Provision of immediate and broad-spectrum antibiotic therapy. Simultaneous assessment for possible sources in order to direct targeted therapy. Consideration for invasive and chemical support to prevent cardiopulmonary collapse. Departure Diagnosis: Primary Impression: Severe sepsis Additional Impressions: Shortness of breath Pneumonia Pneumonia type: due to unspecified organism Laterality: unspecified laterality Lung location: unspecified part of lung Qualified Code: J18.9 - Pneumonia due to infectious organism, unspecified laterality, unspecified part of lung Anemia Anemia type: unspecified type Qualified Code: D64.9 - Anemia, unspecified type Condition: Serious NORMAN SANDOVAL MD Oct 03, 2017 08:24
[2017-10-03] MEDS ORDERED: ACETAMINOPHEN 325 MG TAB PO PRN ×2 (08:30→11:30)
[2017-10-03] MEDS ORDERED: ONDANSETRON 4 MG INJ IV PRN ×2 (08:30→11:30)
[2017-10-03 09:38] LABS: ADD UMIC YES; UR ASCORBIC ACID NEGATIVE (NEGATIVE); UR BILIRUBIN (Dip) NEGATIVE (NEGATIVE); UR BLOOD (Dip) NEGATIVE (NEGATIVE); UR CLARITY CLOUDY (CLEAR); UR COLOR YELLOW (YELLOW); UR GLUCOSE (Dip) 2+ mg/dL (NEGATIVE); UR KETONES (Dip) NEGATIVE (NEGATIVE); UR LEUKOCYTE ESTERASE (Dip) 1+ Leu/ul (NEGATIVE); UR MUCUS MODERATE /HPF (NONE SEEN); UR NITRITE (Dip) NEGATIVE (NEGATIVE); UR RBC 5 /HPF (0-5); UR SPECIFIC GRAVITY (Dip) 1.021 (1.003-1.030); UR SQUAMOUS EPITHELIAL CELL MODERATE /HPF (FEW); UR TOTAL PROTEIN (Dip) NEGATIVE (NEGATIVE); UR UROBILINOGEN (Dip) NEGATIVE (NEGATIVE)
[2017-10-03] MEDS ORDERED: BISACODYL 10 MG SUPP PR PRN (11:30)
[2017-10-03] MEDS ORDERED: NACL 0.9% 3 ML SYG IV SCH (11:30)
[2017-10-03] MEDS ORDERED: NA PHOSPHATE/BIPHOS 66.6 ML ENEMA PR PRN (11:30)
[2017-10-03] MEDS ORDERED: morphine 2 MG INJ IV PRN (11:30)
[2017-10-03] MEDS ORDERED: ACETAMINOPHEN 650 MG SUPP PR PRN (11:30)
[2017-10-03 12:07] VITALS: TEMP 98.1
[2017-10-03] MEDS: SOD CHLORIDE 0.9% 1,000 ML IV SCH (13:02)
[2017-10-03 13:12] VITALS: Ht 162.6 cm; Wt 110.0 kg
[2017-10-03 13:20] VITALS: BP 122/74; PULSE 88; RESP 20
[2017-10-03] MEDS ORDERED: TAMOXIFEN 10 MG TAB PO SCH ×2 (13:45→19:00)
--- NOTE | 2017-10-03 13:51 | HP ---
Date/Time of Note Date/Time of Note DATE: 10/03/17 TIME: 13:34 Assessment/Plan VTE Prophylaxis VTE Prophylaxis Intervention: ambulation Lines/Catheters IV Catheter Type (from Nrs): PICC Line Central line still needed: Yes Assessment/Plan Chief Complaint/Hosp Course This is a 47-year-old female with metastatic breast cancer who was recently diagnosed with empyema and receiving IV antibiotics, presented to the emergency room for worsening shortness of breath and subjective fevers. 1. Pneumonia in the setting of recent parapneumonic effusion with staph aureus empyema. -In the setting of recent empyema, we are going to start patient on clindamycin that would cover anaerobes along with Levaquin. -Will consider ID consult. -Bronchodilators, oxygen and follow-up chest x-ray -CT Chest in AM to f/u pleural effusion and determine need for drainage. 2. Sepsis, likely secondary to #1. -Continue antibiotics, IV fluids. Follow-up pancultures. 3. Anemia with iron deficiency and metastatic cancer history. H&H stable. -Monitor. 4. Metastatic breast cancer with metastases to lung, liver, brain, craniectomy 5. Recurrent pleural effusion with and Staph aureus empyema 2/2 malignancy. Patient also had history of Pleurx catheter placed in the past. -Status post recent VATS. 6. Prediabetes, previous A1c 6.2. -Carbohydrate controlled diet. Patient will be placed on insulin in-house with steroids she is taking. Prophylaxis: SCDs/Pepcid. Rest of the management depend on hospital course. I have also spoke with the patient and she wanted to be full code at this time. Approximately 60 minutes was spent on this history and physical. Patient is seen in collaboration with Dr. Hernández. Problems: HPI/ROS Admit Date/Time Admit Date/Time Oct 03, 2017 at 08:20 Hx of Present Illness This is a very unfortunate obese 47-year-old female with a past medical history of metastatic breast cancer with metastases to lung, liver, brain, craniectomy, Right mastectomy, pleural effusion with dysfunctional Pleurx catheter which was removed, recent empyema with staph aureus and status post VATS, Prediabetes,who presented to the emergency room with complaints of subjective fevers, generalized weakness and shortness of breath that started 2 days ago. Apparently, she has been on IV antibiotics for empyema. Patient also on oral chemo and radiation. However, she was too weak to get her last radiation dose. Patient also follow-up with her oncologist and has had next chemo scheduled for next week. At my encounter with the patient, she denied chest pain, palpitation, nausea, vomiting, abdominal pain, dizziness, hematuria, hematemesis, hematochezia, melena or other constitutional symptoms. Patient was noted with hemoglobin 9.3 , hematocrit 30.7, platelet 110, and a lactic acid level 3.6 upon presentation. Urinalysis with 1+ leukocyte esterase, positive with leukocyte esterase, WBC and WBC. Patient was given vancomycin, normal saline 3 L and aztreonam in the emergency room and was admitted. ROS A 12 point review of system was assessed and is negative other than what is mentioned in the HPI. PMH/Family/Social Past Medical History See HPI Past Surgical History See HPI Social History Patient denied history of alcohol, smoking or illicit drug use. Smoking Status: Never smoker Exam/Review of Systems Vital Signs Vitals Vital Signs Date Time Temp Pulse Resp B/P Pulse Ox O2 Delivery O2 Flow Rate FiO2 10/03/17 13:22 Nasal Cannula 2.0 10/03/17 13:20 98.2 88 20 122/74 99 Exam Exam General: Chronically ill looking female, not in any acute distress . HEENT: Normocephalic, Atraumatic, No laceration or hematoma; Eyes: PEERL, Conjunctiva clear, Anicteric sclera Neck: Supple without any lymphadenopathy, nontender, no JVD, no carotid bruits, trachea midline, no thyromegaly Cardiac: S1, S2 auscultated, regular rhythm and rate, no mumurs or gallop Pulmonary:Rhonchi bilaterally. Normal respiratory effort. No wheezing GI: Abdomen Obese to inspection. Soft, non tender, non- distended, no masses, no rebound tenderness or guarding. Bowel sounds active on all four quadrants Genitourinary: Deferred Extremities: Grossly edematous with 4+ pedal edema.No cyanosis, clubbing, or edema. Pulses [2+] bilaterally. Full ROM on all four extremities. No focal weakness appreciated. Neurologic: Alert to person, place, time, and situation. Affect appropriate, intact sensation. Skin: Right chest wall with previous chest tube insertion site with open wound with slough.Clean,dry, and intact. No ecchymosis, no rashes, or lesions Labs Result Diagram: 10/03/17 0652 10/03/17 0652 Medications Medications Current Medications Sodium Chloride (NS) 1,000 ml @ 75 mls/hr [id number] IV Last administered on t 13:02; Admin Dose 75 MLS/HR; Start 10/03/17 at 11:13 Ondansetron HCl (Zofran Inj) 4 mg Q6H PRN IV NAUSEA AND/OR VOMITING; Start at 11:30 Acetaminophen (Tylenol Tab) 650 mg Q6H PRN PO PAIN LEVEL 1-3 OR FEVER; Start 10/03/17 at 11:30 Acetaminophen (Tylenol Supp) 650 mg Q6H PRN [place] PAIN LEVEL 1-3 OR FEVER; Start 10/03/17 at 11:30 Morphine Sulfate (morphine) 2 mg Q4H PRN IV SEVERE PAIN LEVEL 7-10; Start at 11:30 Bisacodyl (Dulcolax Supp) 10 mg Q24H PRN [place] PRN; Start 10/03/17 at 11:30 Dexamethasone (Decadron) 4 mg BID PO ; Start 10/03/17 at 21:00 Docusate Sodium (Colace) 200 mg QHS PO ; Start 10/03/17 at 21:00 Famotidine (Pepcid) 20 mg DAILY PO ; Start 10/04/17 at 09:00 Magnesium Hydroxide (Milk Of Mag) 30 ml QHS PO ; Start 10/03/17 at 21:00 Sodium Biphosphate/ Sodium Phosphate (Fleet Enema Pediatric) 66.6 ml Q2D PRN [place] CONSTIPATION; Start 10/03/17 at 11:30 Miscellaneous Information 20 mg 20 mg DAILY PO ; Start 10/04/17 at 09:00; Status UNV Levofloxacin/ Dextrose (Levaquin 500mg/ D5W 100 ml (Pmx)) 100 ml @ 100 mls/hr Q24H IVPB ; Start 10/03/17 at 11:30 LILIYA SANCHES NP Oct 03, 2017 13:49
[2017-10-03] MEDS ORDERED: ALBUTEROL/IPRATROPIUM (NEB) 3 ML AMP HHN PRN (14:00)
[2017-10-03] MEDS: LEVOFLOXACIN 500MG/D5W (PMX) 100 ML IVPB SCH (14:04)
[2017-10-03] MEDS: CLINDAMYCIN 900 MG/D5W (PMX) 50 ML IVPB SCH ×2 (14:22→22:46)
[2017-10-03] MEDS ORDERED: GLUCAGON 1 MG INJ IM PRN (14:30)
[2017-10-03] MEDS ORDERED: GLUCOSE GEL 15 GRAM TUBE PO PRN ×2 (14:30)
[2017-10-03] MEDS ORDERED: GLUCOSE GEL 15 GRAM TUBE BUCCAL PRN (14:30)
[2017-10-03] MEDS ORDERED: DEXTROSE 50% 50 ML SYRINGE IV PRN ×2 (14:30)
--- NOTE | 2017-10-03 16:18 | CONS ---
DATE OF ADMISSION: 10/03/2017 DATE OF CONSULTATION: 10/03/2017 TYPE OF CONSULTATION: Infectious consultation. REASON FOR CONSULTATION: Antibiotic management. HISTORY OF PRESENT ILLNESS: Chayito Lim is a very unfortunate 47-year-old female with past [facility] history of breast cancer, comes in now with pneumonia and is being seen for antibiotic managemen t. Her past problems include: 1. Obesity. 2. Metastatic breast carcinoma with metastasis to lungs, liver, brain. 3. Status post craniectomy 4. Status post right mastectomy. 5. Pleural effusion with dysfunctional PleurX catheter which was removed. 6. Recent empyema with Staphylococcus aureus, status post VATS. 7. Prediabetes. 8. Obesity. The patient presents to the emergency room with fever, generalized weakness, shortness of breath whi ch began 2 days prior to admission. She has been on IV antibiotics for empyema also on oral chemoth erapy and radiation. She is too weak; however, for her last radiation dose. The patient had a whit e count of 9.9, H and H 9.3, 30.7, platelet count 110,000. BUN and creatinine 13/0.38. The patient was started on vancomycin and aztreonam in the emergency room. PAST MEDICAL HISTORY: Operations as outlined. FAMILY HISTORY: Noncontributory. SOCIAL HISTORY: She does not smoke, drink or abuse drugs. ALLERGIES: NONE TO PENICILLIN, SULFA OR FOODS. MEDICATIONS: Per chart. REVIEW OF SYSTEMS: As per HPI. PHYSICAL EXAMINATION: GENERAL: The patient is a chronically ill-appearing female who is awake, responsive, in no acute di stress. VITAL SIGNS: Stable. She is afebrile. SKIN: Right chest wall with previous chest tube insertion site with open wound, clean, dry and inta ct. She has no rash or icterus or ecchymoses. HEENT: Within normal limits. NECK: Supple. LYMPH NODES: None palpable. CHEST: Decreased breath sounds at the bases with scattered rhonchi bilaterally. HEART: Without murmur or gallop. ABDOMEN: Soft, obese, nontender, without organosplenomegaly or masses. EXTREMITIES: Without cyanosis, clubbing. She is grossly edematous, 4+ edema with anasarca. RECTAL AND GENITAL: Deferred. NEUROLOGIC: No focal neurological abnormality. IMPRESSION AND PLAN: The patient comes in now with pneumonia in the setting of a parapneumonic effu raza with history of Staph aureus empyema. She was started on clindamycin and Levaquin. She was gi willow bronchodilator. She was pancultured. She had VATS 2 weeks ago. IMAGING STUDIES: Chest x-ray shows minimal increased right-sided pleural effusion with adjacent con solidation or atelectasis, increased bilateral right greater than left perihilar airspace disease. CT scan of the brain, postsurgical changes from prior right frontal lobe metastasis resection with f ocal areas of encephalomalacia seen. The other metastatic lesions seen on prior MRI not well demons trated. Urine is 1+ leukocyte esterase, 14 white cells per high-power field. Cultures are pending. I concu r with the current treatment with clindamycin and Levaquin. We have blood cultures, sputum cultures , urine cultures, and stool cultures pending. I will dictate my findings to the hospitalist. Dictated By: FELISHA VITALE MD, JD/AFIA Conf#: [id number] DID#: [id number]
[2017-10-03] MEDS: ALBUTEROL/IPRATROPIUM (NEB) 3 ML AMP HHN SCH ×2 (17:08→21:06)
[2017-10-03] MEDS: INSULIN ASPART [NOVOLOG] 3 ML PEN SC SCH ×2 (18:05→20:55)
[2017-10-03] MEDS ORDERED: DEXAMETHASONE 4 MG TAB PO SCH ×2 (19:00)
[2017-10-03 20:10] VITALS: BP 116/66; RESP 20
[2017-10-03] MEDS: TAMOXIFEN 10 MG TAB PO SCH (20:46)
[2017-10-03] MEDS: DEXAMETHASONE 4 MG TAB PO SCH (20:50)
[2017-10-03] MEDS: DOCUSATE SODIUM 100 MG CAP PO SCH (21:00)
[2017-10-03] MEDS: MAGNESIUM HYDROXIDE 30ML CUP PO SCH (21:00)
--- NOTE | 2017-10-03 23:40 | CONS ---
Date/Time of Note Date/Time of Note DATE: 10/03/17 TIME: 23:40 Assessment/Plan Assessment/Plan Chief Complaint/Hosp Course #Her2+/ER+/MT+ metastatic breast ca -pt is non compliant and when she receives therapy, she is quite responsive to therapy -therefore at this time, although she has terminal disease, there are still many more treatment options which she could benefit from -given her Brain mets, I would consider a combination of Xeloda and Lapatinib which can penetrate the blood brain barrier. once patient is stable from an infection standpoint, we will start her therapy -may continue Tamoxifen for now #Pleural Effusion - 2/2 malignancy as well as infection -pt is s/p VATS -continue antibiotics -ID recs appreciated #Brain Mets -pt is s/p resection -pt likely will not complete the last dose of WBXRT --continue Decadron 4mg po q day for now Problems: Consultation Date/Type/Reason Admit Date/Time Oct 03, 2017 at 08:20 Date of Consultation: Oct 03, 2017 Type of Consultation: Oncology Reason for Consultation metastatic breast cancer Referring Provider: ИРИНА DEE Hx of Present Illness 47 yo female with Er+/MT+/Her2 + metastatic breast cancer with recent diagnosis of brain mets and malignant pleural effusions. Pt had craniotomy followed by whole brain radiation. Pt had 1 more session left but presents to the ER with fevers, weakness and shortness of breath. During the last admission pt had a VATS with chest tube placement given the recurring pleural effusions. In the past patient has been very responsive to therapy but had been non compliant with therapy for many months before she was found with the pleural effusion and brain mets. Constitutional: requiring O2 Respiratory: shortness of breath Gastrointestinal: no complaints Genitourinary: no complaints Musculoskeletal: back pain, bone/joint pain Past Medical History metastatic breast cancer malignant pleural effusions Family History Significant Family History: no pertinent family hx Social History Alcohol Use: none Smoking Status: Never smoker Drug Use: none Exam/Review of Systems Vital Signs Vitals Vital Signs Date Time Temp Pulse Resp B/P Pulse Ox O2 Delivery O2 Flow Rate FiO2 10/03/17 21:07 2.0 10/03/17 21:07 105 20 96 Nasal Cannula 10/03/17 20:10 98.3 116/66 Exam Constitutional: alert, oriented Head: normocephalic Eyes: nl conjunctiva ENMT: nl external ears & nose Neck: supple Respiratory: diminished breath sounds Cardiovascular: regular rate and rhythm Gastrointestinal: soft Musculoskeletal: nl extremities to inspection Results Result Diagram: 10/03/17 0652 10/03/17 0652 Results 24 hrs Laboratory Tests Test 10/03/17 06:52 10/03/17 07:41 10/03/17 08:40 10/03/17 12:00 White Blood Count 9.9 # Red Blood Count 3.78 L Hemoglobin 9.3 L Hematocrit 30.7 L Mean Corpuscular Volume 81.2 L Mean Corpuscular Hemoglobin 24.6 L Mean Corpuscular Hemoglobin Concent 30.3 L Red Cell Distribution Width 23.1 H Platelet Count 110 #L Mean Platelet Volume 8.8 Neutrophils % 75.4 Lymphocytes % 13.3 L Monocytes % 7.9 Eosinophils % 0.2 Basophils % 0.2 Nucleated Red Blood Cells % 0.0 Neutrophils # 7.4 Lymphocytes # 1.3 Monocytes # 0.8 Eosinophils # 0.0 Basophils # 0.0 Nucleated Red Blood Cells # 0.0 Prothrombin Time 14.6 H Prothrombin Time Ratio 1.1 INR International Normalized Ratio 1.14 Activated Partial Thromboplast Time 29.6 Sodium Level 140 Potassium Level 3.7 Chloride Level 106 Carbon Dioxide Level 24 Anion Gap 14 Blood Urea Nitrogen 13 Creatinine 0.38 L Glucose Level 174 Lactic Acid Level 3.6 *H 2.0 1.3 Calcium Level 8.3 L Total Bilirubin 0.3 Direct Bilirubin 0.00 Indirect Bilirubin 0.3 Aspartate Amino Transf (AST/SGOT) 56 H Alanine Aminotransferase (ALT/SGPT) 27 Alkaline Phosphatase 89 Troponin I < 0.012 Total Protein 5.8 L Albumin 2.7 L Globulin 3.10 Albumin/Globulin Ratio 0.87 Urine Color YELLOW Urine Clarity CLOUDY A Urine pH 5.0 Urine Specific [place] 1.021 Urine Ketones NEGATIVE Urine Nitrite NEGATIVE Urine Bilirubin NEGATIVE Urine Urobilinogen NEGATIVE Urine Leukocyte Esterase 1+ H Urine Microscopic RBC 5 Urine Microscopic WBC 14 H Urine Squamous Epithelial Cells MODERATE Urine Mucus MODERATE Urine Hemoglobin NEGATIVE Urine Glucose 2+ H Urine Total Protein NEGATIVE Thyroid Stimulating Hormone (TSH) 1.390 Free Thyroxine 1.62 Test 10/03/17 18:06 10/03/17 20:51 Bedside Glucose 123 113 Medications Medications Current Medications Sodium Chloride (NS) 1,000 ml @ 75 mls/hr [id number] IV Last administered on 13:02; Admin Dose 75 MLS/HR; Start 10/03/17 at 11:13 Ondansetron HCl (Zofran Inj) 4 mg Q6H PRN IV NAUSEA AND/OR VOMITING; Start at 11:30 Acetaminophen (Tylenol Tab) 650 mg Q6H PRN PO PAIN LEVEL 1-3 OR FEVER; Start 10/03/17 at 11:30 Acetaminophen (Tylenol Supp) 650 mg Q6H PRN [place] PAIN LEVEL 1-3 OR FEVER; Start 10/03/17 at 11:30 Morphine Sulfate (morphine) 2 mg Q4H PRN IV SEVERE PAIN LEVEL 7-10; Start at 11:30 Bisacodyl (Dulcolax Supp) 10 mg Q24H PRN [place] PRN; Start 10/03/17 at 11:30 Docusate Sodium (Colace) 200 mg QHS PO ; Start 10/03/17 at 21:00 Famotidine (Pepcid) 20 mg DAILY PO ; Start 10/04/17 at 09:00 Magnesium Hydroxide (Milk Of Mag) 30 ml QHS PO ; Start 10/03/17 at 21:00 Sodium Biphosphate/ Sodium Phosphate 66.6 ml 66.6 ml Q2D PRN [place] CONSTIPATION; Start 10/03/17 at 11:30 Levofloxacin/ Dextrose (Levaquin 500mg/ D5W 100 ml (Pmx)) 100 ml @ 100 mls/hr Q24H IVPB Last administered on 10/03/17 14:04; Admin Dose 100 MLS/HR; Start 10/03/17 at 11:30 Diagnostic Test (Pha) 1 ea 1 ea 02 XX ; Start 10/04/17 at 02:00 Clindamycin HCl/ Dextrose (Cleocin 900 Mg/ D5W (Pmx)) 50 ml @ 50 mls/hr Q8 IVPB Last administered on 10/03/17 22:46; Admin Dose 50 MLS/HR; Start 10/03/17 at 14:00 Miscellaneous Information 1 ea NOTE XX ; Start 10/03/17 at 14:30 Glucose (Glutose) 15 gm Q15M PRN PO DECREASED GLUCOSE; Start 10/03/17 at 14:30 Glucose (Glutose) 22.5 gm Q15M PRN PO DECREASED GLUCOSE; Start 10/03/17 at 14: 30 Dextrose (D50w Syringe) 25 ml Q15M PRN IV DECREASED GLUCOSE; Start 10/03/17 at 14:30 Dextrose (D50w Syringe) 50 ml Q15M PRN IV DECREASED GLUCOSE; Start 10/03/17 at 14:30 Glucagon (Glucagen) 1 mg Q15M PRN IM DECREASED GLUCOSE; Start 10/03/17 at 14: 30 Glucose (Glutose) 15 gm Q15M PRN BUCCAL DECREASED GLUCOSE; Start 10/03/17 at 14:30 Dexamethasone (Decadron) 4 mg DAILY PO Last administered on 10/03/17 20:50; Admin Dose 4 MG; Start 10/03/17 at 20:30 Tamoxifen Citrate (Nolvadex) 20 mg DAILY@19 PO Last administered on 10/03/17 20:46; Admin Dose 20 MG; Start 10/03/17 at 20:30 ANTWON DYE M.D. Oct 03, 2017 23:40
[2017-10-04] MEDS: SOD CHLORIDE 0.9% 1,000 ML IV SCH ×3 (00:33→13:53)
[2017-10-04 01:57] VITALS: BP 124/62; RESP 18
[2017-10-04] MEDS: ACCU-CHEK XX SCH (02:00)
[2017-10-04] MEDS: CLINDAMYCIN 900 MG/D5W (PMX) 50 ML IVPB SCH (05:03)
[2017-10-04 05:51] LABS: ABNORMAL IP MESSAGE 1; BASOPHILS % 0.2 % (0.0-2.0); HEMATOCRIT 30.3 % (37.0-47.0); HEMOGLOBIN 9.4 g/dl (12.0-16.0); MEAN CORPUSCULAR HEMOGLOBIN 24.9 pg (29.0-33.0); MEAN CORPUSCULAR VOLUME 80.2 fl (82.0-101.0); MEAN PLATELET VOLUME 9.1 fl (7.4-10.4); MONOCYTE # 0.3 10^3/ul (0.3-0.9); MONOCYTES % 3.1 % (0.0-11.0); NEUTROPHIL # 8.9 10^3/ul (1.6-7.5); NEUTROPHILS % 84.8 % (39.0-77.0); PLATELET COUNT 119 10^3/UL (140-415); RED BLOOD COUNT 3.78 10^6/ul (4.20-5.40); RED CELL DISTRIBUTION WIDTH 22.7 % (11.5-14.5); WHITE BLOOD COUNT 10.5 10^3/ul (4.8-10.8)
[2017-10-04 05:58] LABS: POSITIVE DIFF @See below
[2017-10-04 06:21] LABS: ALBUMIN 2.7 g/dl (3.3-4.9); ALBUMIN/GLOBULIN RATIO 0.79; BILIRUBIN,INDIRECT 0.5 mg/dl (0-1.1); BILIRUBIN,TOTAL 0.5 mg/dl (0.2-1.3); CALCIUM 8.6 mg/dl (8.4-10.2); CREATININE 0.4 mg/dl (0.44-1.00); PHOSPHORUS 4.8 mg/dl (2.5-4.9); POTASSIUM 4.2 mmol/L (3.5-5.1); TOTAL PROTEIN 6.1 g/dl (6.1-8.1)
[2017-10-04] MEDS: DEXAMETHASONE 4 MG TAB PO SCH (08:11)
[2017-10-04] MEDS: INSULIN ASPART [NOVOLOG] 3 ML PEN SC SCH ×4 (08:12→20:49)
[2017-10-04] MEDS: FAMOTIDINE 20 MG TAB PO SCH (08:14)
[2017-10-04 08:25] VITALS: BP 134/73; RESP 19
[2017-10-04] MEDS: ALBUTEROL/IPRATROPIUM (NEB) 3 ML AMP HHN SCH ×4 (08:55→21:07)
[2017-10-04] MEDS ORDERED: TAMOXIFEN CITRATE 20 MG PO SCH (09:00)
[2017-10-04] MEDS: LEVOFLOXACIN 500MG/D5W (PMX) 100 ML IVPB SCH (12:00)
[2017-10-04 12:45] VITALS: BP 135/79; PULSE 100; RESP 20
--- NOTE | 2017-10-04 13:05 | PN ---
Date/Time of Note Date/Time of Note DATE: 10/04/17 TIME: 13:05 Assessment/Plan VTE Prophylaxis VTE Prophylaxis Intervention: ambulation, SCD's Lines/Catheters IV Catheter Type (from Nrs): PICC Line Central line still needed: Yes Assessment/Plan Chief Complaint/Hosp Course This is a 47-year-old female with metastatic breast cancer who was recently diagnosed with empyema and receiving IV antibiotics, presented to the emergency room for worsening shortness of breath and subjective fevers. 1. Pneumonia in the setting of recent parapneumonic effusion with staph aureus empyema. Clinically improving. -Continue clindamycin and Levaquin. Follow-up with ID recommendations. -Bronchodilators, oxygen -CT Chest for follow-up on pleural effusion. 2. Sepsis, likely secondary to #1. Improving. -Continue antibiotics, IV fluids. Follow-up pancultures. 3. Anemia with iron deficiency and metastatic cancer history. H&H stable. -Monitor. 4. Metastatic breast cancer with metastases to lung, liver, brain, craniectomy 5. Recurrent pleural effusion with and Staph aureus empyema 2/2 malignancy. Patient also had history of Pleurx catheter placed in the past. -Status post recent VATS. 6. Prediabetes, previous A1c 6.2. -Carbohydrate controlled diet. Continue insulin in-house with steroids she is taking. Prophylaxis: SCDs/Pepcid. Follow-up with CT chest and determine whether patient needs another thoracentesis with this admission. Otherwise, patient is clinically feeling improvement in her symptoms. Follow-up on final cultures. Today I have also ordered a CT brain as patient fall this morning with hitting her head on the cupboard. Will follow up on the CT. Patient is seen in collaboration with Dr. Hernández. Problems: Subjective 24 Hr Interval Summary Free Text/Dictation As per nursing staff, patient had episode of fall and she reported hitting her head on a cupboard. Patient currently denied any headache, loss of consciousness, dizziness or other constitutional symptoms. She is feeling much improved in regards to her shortness of breath. Exam/Review of Systems Vital Signs Vitals Vital Signs Date Time Temp Pulse Resp B/P Pulse Ox O2 Delivery O2 Flow Rate FiO2 10/04/17 08:25 97.8 84 19 134/73 98 10/04/17 08:15 Nasal Cannula 2.0 Intake and Output 10/03/17 10/03/17 10/04/17 15:00 23:00 07:00 Intake Total 250 ml 760 ml 1340 ml Balance 250 ml 760 ml 1340 ml Results Result Diagram: 10/04/1713 10/04/17 0513 Results 24 hrs Laboratory Tests Test 10/03/17 18:06 10/03/17 20:51 10/04/17 05:13 10/04/17 07:56 Bedside Glucose 123 113 158 White Blood Count 10.5 Red Blood Count 3.78 L Hemoglobin 9.4 L Hematocrit 30.3 L Mean Corpuscular Volume 80.2 L Mean Corpuscular Hemoglobin 24.9 L Mean Corpuscular Hemoglobin Concent 31.0 L Red Cell Distribution Width 22.7 H Platelet Count 119 L Mean Platelet Volume 9.1 Neutrophils % 84.8 H Lymphocytes % 9.0 L Monocytes % 3.1 Eosinophils % 0.0 Basophils % 0.2 Nucleated Red Blood Cells % 0.0 Neutrophils # 8.9 H Lymphocytes # 1.0 Monocytes # 0.3 Eosinophils # 0.0 Basophils # 0.0 Nucleated Red Blood Cells # 0.0 Sodium Level 140 Potassium Level 4.2 Chloride Level 106 Carbon Dioxide Level 26 Anion Gap 12 Blood Urea Nitrogen 6 L Creatinine 0.40 L Glucose Level 159 Calcium Level 8.6 Phosphorus Level 4.8 Total Bilirubin 0.5 Direct Bilirubin 0.00 Indirect Bilirubin 0.5 Aspartate Amino Transf (AST/SGOT) 61 H Alanine Aminotransferase (ALT/SGPT) 42 Alkaline Phosphatase 99 Total Protein 6.1 Albumin 2.7 L Globulin 3.40 H Albumin/Globulin Ratio 0.79 Test 10/04/17 11:54 Bedside Glucose 175 Medications Medications Current Medications Sodium Chloride (NS) 1,000 ml @ 75 mls/hr [id number] IV Last administered on t 05:04; Admin Dose 75 MLS/HR; Start 10/03/17 at 11:13 Ondansetron HCl (Zofran Inj) 4 mg Q6H PRN IV NAUSEA AND/OR VOMITING; Start at 11:30 Acetaminophen (Tylenol Tab) 650 mg Q6H PRN PO PAIN LEVEL 1-3 OR FEVER; Start 10/03/17 at 11:30 Acetaminophen (Tylenol Supp) 650 mg Q6H PRN [place] PAIN LEVEL 1-3 OR FEVER; Start 10/03/17 at 11:30 Morphine Sulfate (morphine) 2 mg Q4H PRN IV SEVERE PAIN LEVEL 7-10; Start at 11:30 Bisacodyl (Dulcolax Supp) 10 mg Q24H PRN [place] PRN; Start 10/03/17 at 11:30 Docusate Sodium (Colace) 200 mg QHS PO ; Start 10/03/17 at 21:00 Famotidine (Pepcid) 20 mg DAILY PO Last administered on 10/04/17 08:14; Admin Dose 20 MG; Start 10/04/17 at 09:00 Magnesium Hydroxide (Milk Of Mag) 30 ml QHS PO ; Start 10/03/17 at 21:00 Sodium Biphosphate/ Sodium Phosphate 66.6 ml 66.6 ml Q2D PRN [place] CONSTIPATION; Start 10/03/17 at 11:30 Levofloxacin/ Dextrose (Levaquin 500mg/ D5W 100 ml (Pmx)) 100 ml @ 100 mls/hr Q24H IVPB Last administered on 10/04/17 12:00; Admin Dose 100 MLS/HR; Start 10/03/17 at 11:30 Diagnostic Test (Pha) 1 ea 1 ea 02 XX ; Start 10/04/17 at 02:00 Clindamycin HCl/ Dextrose (Cleocin 900 Mg/ D5W (Pmx)) 50 ml @ 50 mls/hr Q8 IVPB Last administered on 10/04/17 05:03; Admin Dose 50 MLS/HR; Start 10/03/17 at 14:00 Miscellaneous Information 1 ea NOTE XX ; Start 10/03/17 at 14:30 Glucose (Glutose) 15 gm Q15M PRN PO DECREASED GLUCOSE; Start 10/03/17 at 14:30 Glucose (Glutose) 22.5 gm Q15M PRN PO DECREASED GLUCOSE; Start 10/03/17 at 14: 30 Dextrose (D50w Syringe) 25 ml Q15M PRN IV DECREASED GLUCOSE; Start 10/03/17 at 14:30 Dextrose (D50w Syringe) 50 ml Q15M PRN IV DECREASED GLUCOSE; Start 10/03/17 at 14:30 Glucagon (Glucagen) 1 mg Q15M PRN IM DECREASED GLUCOSE; Start 10/03/17 at 14: 30 Glucose (Glutose) 15 gm Q15M PRN BUCCAL DECREASED GLUCOSE; Start 10/03/17 at 14:30 Dexamethasone (Decadron) 4 mg DAILY PO Last administered on 10/04/17 08:11; Admin Dose 4 MG; Start 10/03/17 at 20:30 Tamoxifen Citrate (Nolvadex) 20 mg DAILY@19 PO Last administered on 10/03/17 20:46; Admin Dose 20 MG; Start 10/03/17 at 20:30 LILIYA SANCHES V. PEARL [employer] Oct 04, 2017 13:05
--- NOTE | 2017-10-04 14:28 | CONS ---
Date/Time of Note Date/Time of Note DATE: 10/04/17 TIME: 14:28 Assessment/Plan Assessment/Plan Chief Complaint/Hosp Course Patient is awake looks comfortable. No fevers WBC 10.5 H&H 9.4 and 30.3 platelets 119 neutrophils 84.8 BUN 6 creatinine 0.40 microbiology: Urine culture growing Yeny albicans and gamma hemolytic strep species, blood cultures negative Antimicrobials: Clindamycin Levaquin Physical examination obese, well-developed middle-aged woman who is awake in no distress head atraumatic normocephalic sclerae nonicteric vehicle mucosa pink neck is supple chest rise symmetrical breath sounds diminished bases heart S1-S2 abdomen soft bowel sounds present extremities without cyanosis Assessment: 1. SOB on admission 2. UTI 3. PNA 4. Hx MAYELA empyema, s/p decortication with pleurodesis 09/12/17 5. Metastatic breast cancer. 6. Diabetes. 7. History of craniectomy for brain metastasis. Plan: Discontinue clindamycin, start Rocephin and fluconazole, continue levofloxacin, follow oncology recommendations Problems: Consultation Date/Type/Reason Admit Date/Time Oct 03, 2017 at 08:20 Initial Consult Date 10/03/17 Type of Consultation: ID Referring Provider: ИРИНА DEE Exam/Review of Systems Vital Signs Vitals Vital Signs Date Time Temp Pulse Resp B/P Pulse Ox O2 Delivery O2 Flow Rate FiO2 10/04/17 13:54 81 20 98 Nasal Cannula 2.0 10/04/17 12:45 98.0 135/79 Intake and Output 10/03/17 10/03/17 10/04/17 15:00 23:00 07:00 Intake Total 250 ml 760 ml 1340 ml Balance 250 ml 760 ml 1340 ml Results Result Diagram: 10/04/17 0513 10/04/17 0513 Results 24 hrs Laboratory Tests Test 10/03/17 18:06 10/03/17 20:51 10/04/17 05:13 10/04/17 07:56 Bedside Glucose 123 113 158 White Blood Count 10.5 Red Blood Count 3.78 L Hemoglobin 9.4 L Hematocrit 30.3 L Mean Corpuscular Volume 80.2 L Mean Corpuscular Hemoglobin 24.9 L Mean Corpuscular Hemoglobin Concent 31.0 L Red Cell Distribution Width 22.7 H Platelet Count 119 L Mean Platelet Volume 9.1 Neutrophils % 84.8 H Lymphocytes % 9.0 L Monocytes % 3.1 Eosinophils % 0.0 Basophils % 0.2 Nucleated Red Blood Cells % 0.0 Neutrophils # 8.9 H Lymphocytes # 1.0 Monocytes # 0.3 Eosinophils # 0.0 Basophils # 0.0 Nucleated Red Blood Cells # 0.0 Sodium Level 140 Potassium Level 4.2 Chloride Level 106 Carbon Dioxide Level 26 Anion Gap 12 Blood Urea Nitrogen 6 L Creatinine 0.40 L Glucose Level 159 Calcium Level 8.6 Phosphorus Level 4.8 Total Bilirubin 0.5 Direct Bilirubin 0.00 Indirect Bilirubin 0.5 Aspartate Amino Transf (AST/SGOT) 61 H Alanine Aminotransferase (ALT/SGPT) 42 Alkaline Phosphatase 99 Total Protein 6.1 Albumin 2.7 L Globulin 3.40 H Albumin/Globulin Ratio 0.79 Test 10/04/17 11:54 Bedside Glucose 175 Medications Medications Current Medications Sodium Chloride (NS) 1,000 ml @ 75 mls/hr [id number] IV Last administered on 05:04; Admin Dose 75 MLS/HR; Start 10/03/17 at 11:13 Ondansetron HCl (Zofran Inj) 4 mg Q6H PRN IV NAUSEA AND/OR VOMITING; Start at 11:30 Acetaminophen (Tylenol Tab) 650 mg Q6H PRN PO PAIN LEVEL 1-3 OR FEVER; Start 10/03/17 at 11:30 Acetaminophen (Tylenol Supp) 650 mg Q6H PRN RI PAIN LEVEL 1-3 OR FEVER; Start 10/03/17 at 11:30 Morphine Sulfate (morphine) 2 mg Q4H PRN IV SEVERE PAIN LEVEL 7-10; Start at 11:30 Bisacodyl (Dulcolax Supp) 10 mg Q24H PRN RI PRN; Start 10/03/17 at 11:30 Docusate Sodium (Colace) 200 mg QHS PO ; Start 10/03/17 at 21:00 Famotidine (Pepcid) 20 mg DAILY PO Last administered on 10/04/17 08:14; Admin Dose 20 MG; Start 10/04/17 at 09:00 Magnesium Hydroxide (Milk Of Mag) 30 ml QHS PO ; Start 10/03/17 at 21:00 Sodium Biphosphate/ Sodium Phosphate 66.6 ml 66.6 ml Q2D PRN RI CONSTIPATION; Start 10/03/17 at 11:30 Levofloxacin/ Dextrose (Levaquin 500mg/ D5W 100 ml (Pmx)) 100 ml @ 100 mls/hr Q24H IVPB Last administered on 10/04/17 12:00; Admin Dose 100 MLS/HR; Start 10/03/17 at 11:30 Diagnostic Test (Pha) 1 ea 1 ea 02 XX ; Start 10/04/17 at 02:00 Clindamycin HCl/ Dextrose (Cleocin 900 Mg/ D5W (Pmx)) 50 ml @ 50 mls/hr Q8 IVPB Last administered on 10/04/17 05:03; Admin Dose 50 MLS/HR; Start 10/03/17 at 14:00 Miscellaneous Information 1 ea NOTE XX ; Start 10/03/17 at 14:30 Glucose (Glutose) 15 gm Q15M PRN PO DECREASED GLUCOSE; Start 10/03/17 at 14:30 Glucose (Glutose) 22.5 gm Q15M PRN PO DECREASED GLUCOSE; Start 10/03/17 at 14: 30 Dextrose (D50w Syringe) 25 ml Q15M PRN IV DECREASED GLUCOSE; Start 10/03/17 at 14:30 Dextrose (D50w Syringe) 50 ml Q15M PRN IV DECREASED GLUCOSE; Start 10/03/17 at 14:30 Glucagon (Glucagen) 1 mg Q15M PRN IM DECREASED GLUCOSE; Start 10/03/17 at 14: 30 Glucose (Glutose) 15 gm Q15M PRN BUCCAL DECREASED GLUCOSE; Start 10/03/17 at 14:30 Dexamethasone (Decadron) 4 mg DAILY PO Last administered on 10/04/17 08:11; Admin Dose 4 MG; Start 10/03/17 at 20:30 Tamoxifen Citrate (Nolvadex) 20 mg DAILY@19 PO Last administered on 10/03/17 20:46; Admin Dose 20 MG; Start 10/03/17 at 20:30 ZULEYMA ALEX NP Oct 04, 2017 14:28
[2017-10-04] MEDS ORDERED: FLUCONAZOLE 100 MG TAB PO ONE (14:30)
[2017-10-04] MEDS ORDERED: CEFTRIAXONE 1 GM/50 ML (PMX) 50 ML IVPB SCH (14:30)
--- NOTE | 2017-10-04 15:07 | CONS ---
Date/Time of Note Date/Time of Note DATE: 10/04/17 TIME: 15:06 Assessment/Plan Assessment/Plan Chief Complaint/Hosp Course #Her2+/ER+/FL+ metastatic breast ca -pt is non compliant and when she receives therapy, she is quite responsive to therapy -therefore at this time, although she has terminal disease, there are still many more treatment options which she could benefit from -given her Brain mets, I would consider a combination of Xeloda and Lapatinib which can penetrate the blood brain barrier. once patient is stable from an infection standpoint, we will start her therapy -may continue Tamoxifen for now #Pleural Effusion - 2/2 malignancy as well as infection -pt is s/p VATS -continue antibiotics -ID recs appreciated #Brain Mets -pt is s/p resection -pt likely will not complete the last dose of WBXRT --continue Decadron 4mg po q day for now Problems: Consultation Date/Type/Reason Admit Date/Time Oct 03, 2017 at 08:20 Initial Consult Date 10/03/17 Type of Consultation: Hematology Reason for Consultation metastatic Her2 + breast cancer Referring Provider: ИРИНА DEE 24 HR Interval Summary Free Text/Dictation pt feels better since antibiotics were started Exam/Review of Systems Vital Signs Vitals Vital Signs Date Time Temp Pulse Resp B/P Pulse Ox O2 Delivery O2 Flow Rate FiO2 10/04/17 13:54 81 20 98 Nasal Cannula 2.0 10/04/17 12:45 98.0 135/79 Intake and Output 10/03/17 10/03/17 10/04/17 15:00 23:00 07:00 Intake Total 250 ml 760 ml 1340 ml Balance 250 ml 760 ml 1340 ml Exam Constitutional: alert, oriented Psych: no complaints Head: normocephalic Eyes: nl conjunctiva ENMT: nl external ears & nose Neck: non-tender, supple Respiratory: clear to auscultation, normal air movement Cardiovascular: regular rate and rhythm Gastrointestinal: soft Musculoskeletal: nl extremities to inspection Results Result Diagram: 10/04/17 0513 10/04/17512 Results 24 hrs Laboratory Tests Test 10/03/17 18:06 10/03/17 20:51 10/04/17 05:13 10/04/17 07:56 Bedside Glucose 123 113 158 White Blood Count 10.5 Red Blood Count 3.78 L Hemoglobin 9.4 L Hematocrit 30.3 L Mean Corpuscular Volume 80.2 L Mean Corpuscular Hemoglobin 24.9 L Mean Corpuscular Hemoglobin Concent 31.0 L Red Cell Distribution Width 22.7 H Platelet Count 119 L Mean Platelet Volume 9.1 Neutrophils % 84.8 H Lymphocytes % 9.0 L Monocytes % 3.1 Eosinophils % 0.0 Basophils % 0.2 Nucleated Red Blood Cells % 0.0 Neutrophils # 8.9 H Lymphocytes # 1.0 Monocytes # 0.3 Eosinophils # 0.0 Basophils # 0.0 Nucleated Red Blood Cells # 0.0 Sodium Level 140 Potassium Level 4.2 Chloride Level 106 Carbon Dioxide Level 26 Anion Gap 12 Blood Urea Nitrogen 6 L Creatinine 0.40 L Glucose Level 159 Calcium Level 8.6 Phosphorus Level 4.8 Total Bilirubin 0.5 Direct Bilirubin 0.00 Indirect Bilirubin 0.5 Aspartate Amino Transf (AST/SGOT) 61 H Alanine Aminotransferase (ALT/SGPT) 42 Alkaline Phosphatase 99 Total Protein 6.1 Albumin 2.7 L Globulin 3.40 H Albumin/Globulin Ratio 0.79 Test 10/04/17 11:54 Bedside Glucose 175 Medications Medications Current Medications Sodium Chloride (NS) 1,000 ml @ 75 mls/hr [id number] IV Last administered on 05:04; Admin Dose 75 MLS/HR; Start 10/03/17 at 11:13 Ondansetron HCl (Zofran Inj) 4 mg Q6H PRN IV NAUSEA AND/OR VOMITING; Start at 11:30 Acetaminophen (Tylenol Tab) 650 mg Q6H PRN PO PAIN LEVEL 1-3 OR FEVER; Start 10/03/17 at 11:30 Acetaminophen (Tylenol Supp) 650 mg Q6H PRN FL PAIN LEVEL 1-3 OR FEVER; Start 10/03/17 at 11:30 Morphine Sulfate (morphine) 2 mg Q4H PRN IV SEVERE PAIN LEVEL 7-10; Start at 11:30 Bisacodyl (Dulcolax Supp) 10 mg Q24H PRN FL PRN; Start 10/03/17 at 11:30 Docusate Sodium (Colace) 200 mg QHS PO ; Start 10/03/17 at 21:00 Famotidine (Pepcid) 20 mg DAILY PO Last administered on 10/04/17 08:14; Admin Dose 20 MG; Start 10/04/17 at 09:00 Magnesium Hydroxide (Milk Of Mag) 30 ml QHS PO ; Start 10/03/17 at 21:00 Sodium Biphosphate/ Sodium Phosphate 66.6 ml 66.6 ml Q2D PRN FL CONSTIPATION; Start 10/03/17 at 11:30 Levofloxacin/ Dextrose (Levaquin 500mg/ D5W 100 ml (Pmx)) 100 ml @ 100 mls/hr Q24H IVPB Last administered on 10/04/17 12:00; Admin Dose 100 MLS/HR; Start 10/03/17 at 11:30 Diagnostic Test (Pha) (Accu-Chek) 1 ea 02 XX ; Start 10/04/17 at 02:00 Miscellaneous Information 1 ea NOTE XX ; Start 10/03/17 at 14:30 Glucose (Glutose) 15 gm Q15M PRN PO DECREASED GLUCOSE; Start 10/03/17 at 14:30 Glucose (Glutose) 22.5 gm Q15M PRN PO DECREASED GLUCOSE; Start 10/03/17 at 14: 30 Dextrose (D50w Syringe) 25 ml Q15M PRN IV DECREASED GLUCOSE; Start 10/03/17 at 14:30 Dextrose (D50w Syringe) 50 ml Q15M PRN IV DECREASED GLUCOSE; Start 10/03/17 at 14:30 Glucagon (Glucagen) 1 mg Q15M PRN IM DECREASED GLUCOSE; Start 10/03/17 at 14: 30 Glucose (Glutose) 15 gm Q15M PRN BUCCAL DECREASED GLUCOSE; Start 10/03/17 at 14:30 Dexamethasone (Decadron) 4 mg DAILY PO Last administered on 10/04/17 08:11; Admin Dose 4 MG; Start 10/03/17 at 20:30 Tamoxifen Citrate 20 mg 20 mg DAILY@19 PO Last administered on 10/03/17 20:46 ; Admin Dose 20 MG; Start 10/03/17 at 20:30 Ceftriaxone Sodium (Rocephin) 50 ml @ 100 mls/hr Q24H IVPB ; Start 10/04/17 at 14:30; Status UNV Fluconazole (Diflucan) 100 mg DAILY PO ; Start 10/05/17 at 09:00; Status UNV Fluconazole (Diflucan) 100 mg ONCE ONCE PO ; Start 10/04/17 at 14:30; Stop at 14:31; Status ANTWON HARMAN M.D. Oct 04, 2017 15:07
[2017-10-04 16:45] VITALS: BP 122/71; RESP 20
--- NOTE | 2017-10-04 18:27 | RADRPT ---
PROCEDURE: CT Brain without contrast. CLINICAL INDICATION: Fall. History of right frontal lobe metastasis resection. TECHNIQUE: A multiplanar CT of the brain was performed on a CT scanner utilizing axial imaging fro m the skull base through the vertex without IV contrast. The CTDIvol is 43.95 mGy and the DLP is 72 0.23 mGycm. One or more of the following dose reduction techniques were utilized: Automated exposu re control, adjustment of the mA and/or kV according to patient size, use of iterative reconstructio n technique. DICOM images are available. COMPARISON: CT brain 12/03/2016 FINDINGS: No evidence of intracranial hemorrhage or abnormal extra-axial fluid collection. Right frontotempora l craniectomy and cranioplasty. Underlying right frontal lobe encephalomalacia compatible with resec tion of intracranial metastasis. The remaining brain parenchyma demonstrates no focal attenuation abnormality, edema, mass effect or shift. Contrast-enhanced MRI would be more sensitive for subtle underlying metastasis. No edema, mas s effect, or shift. Mild prominence of the ventricles compatible with mild generalized volume loss. The basal cisterns, posterior fossa contents, brainstem, craniocervical junction, orbits, pituitary axis, paranasal sinuses, mastoid air cells, and calvarium are unremarkable. IMPRESSION: 1. A right frontotemporal craniectomy and cranioplasty with underlying frontal lobe encephalomalaci a compatible with prior intracranial metastasis resection. 2. No other gross parenchymal lesion, edema, mass effect or shift. MRI with contrast is recommended to exclude underlying subtle metastasis. 3. No hydrocephalus or intracranial hemorrhage. RPTAT:AAJJ Physician Gage Date Time Electronically viewed and signed by Physician Gage on 10/04/2017 18:27 [email or web address]/
[2017-10-04 20:00] VITALS: BP 125/67; RESP 18
[2017-10-04] MEDS: TAMOXIFEN 10 MG TAB PO SCH (20:48)
[2017-10-04] MEDS: MAGNESIUM HYDROXIDE 30ML CUP PO SCH (20:49)
[2017-10-04] MEDS: DOCUSATE SODIUM 100 MG CAP PO SCH (20:49)
[2017-10-05] MEDS: SOD CHLORIDE 0.9% 1,000 ML IV SCH (01:21)
--- NOTE | 2017-10-05 01:58 | RADRPT ---
PROCEDURE: CT Chest without contrast. CLINICAL INDICATION: Pleural effusion. Right mastectomy. TECHNIQUE: CT scan of the chest without contrast was performed on a multidetector high-resolution CT scanner. Coronal and sagittal reformatted images were obtained from the axial source images. The total exam CTDI equals 16.52 mGy and the total exam DLP equals 727.49 mGy-cm. One or more of the following dose reduction techniques were utilized: 1.) Automated exposure control 2.) Adjustment of the mA +/- kV according to patient's size 3.) Use of iterative reconstruction technique. COMPARISON: Plain film chest dated 10/03/2017. CT examination of the chest dated 09/07/2017. FINDINGS: Loculated pleural effusions and right lung with pleural thickening suggesting metastatic neoplasm. S urgical changes of right mastectomy is suggest prior breast cancer. IV contrast enhanced CT examinat ion of the chest would more sensitive and specific for distinguishing loculated pleural effusion fro m pleural thickening and pleural metastatic neoplasm masses. Likely solid pleural-based mass at the right heart border measuring 43 x 32 x 30 mm. Loculated pleural effusions and metastatic deposits to the right thorax forearm appear increased ove r interval since 09/07/2017. Right axillary adenopathy measures up to 23 x 16 x 12 mm, and likely represents metastatic right noelle ast cancer. This is similar in appearance to the prior examination. [id number] x 7 x 5 cm empyema at the right lung base, with partially calcified margins and scattered a ir. This is new over interval since 09/07/2017. Right supraclavicular lymph node measures 25 x 16 x 13 mm. This is increased in size over interval. Extensive mediastinal adenopathy seen with larger lymph nodes measuring up to about 23 x 19 x 13 mm. The largest lymph node is increased in size over interval. The vascular structures of the mediastinum are normal in course and caliber. Aortic vascular calcif ications are mild in the thoracic aorta; and no atherosclerotic calcifications are identified in the coronary arteries. The heart size is normal without evidence for pericardial thickening or effusio n. The surrounding chest wall is unremarkable. Extensive faintly visualized metastatic deposits throug hout the liver. The surrounding osseous structures are remarkable for sclerotic changes in the sternum compatible wi th osseous metastatic breast cancer. Osseous metastatic deposits are also likely present C7, T3 and T9 humeral bodies, as well as at the right humeral head and the acromion of the left scapula. These findings are mildly increased over the interval. A nuclear medicine bone scan may be of further use. IMPRESSION: 1. Right mastectomy and right axillary adenopathy compatible with metastatic breast cancer. 2. New right lung base empyema, with partially calcified margins and air. 3. Increased loculated pleural effusion throughout the right lung. 4. Increased scattered nodular and mass-like pleural changes in the right hemithorax compatible with metastatic neoplasm. 5. A contrast enhanced CT examination would be more sensitive and specific for evaluating the right hemithorax. 6. Extensive mediastinal and right supraclavicular adenopathy, increased over interval. 7. Mildly increased extensive osseous metastatic neoplasm deposits, and nuclear medicine bone scan m ay be of further use. 8. Extensive metastatic process throughout the liver, without significant change. RPTAT: UU Physician Ngoiz Date Time Electronically viewed and signed by Physician Ngozi on 10/05/2017 01:58 RS/
[2017-10-05] MEDS: ACCU-CHEK XX SCH (02:15)
[2017-10-05 05:47] LABS: ABNORMAL IP MESSAGE 1; BASOPHILS % 0.1 % (0.0-2.0); HEMATOCRIT 26.2 % (37.0-47.0); HEMOGLOBIN 8.2 g/dl (12.0-16.0); LYMPHOCYTES # 1.1 10^3/ul (0.8-2.9); LYMPHOCYTES % 11.6 % (15.0-51.0); MEAN CORPUSCULAR HEMOGLOBIN 25.1 pg (29.0-33.0); MEAN CORPUSCULAR HGB CONC 31.3 g/dl (32.0-37.0); MEAN CORPUSCULAR VOLUME 80.1 fl (82.0-101.0); MEAN PLATELET VOLUME 9.6 fl (7.4-10.4); MONOCYTE # 0.7 10^3/ul (0.3-0.9); MONOCYTES % 7.1 % (0.0-11.0); NEUTROPHIL # 7.7 10^3/ul (1.6-7.5); NEUTROPHILS % 78.8 % (39.0-77.0); PLATELET COUNT 117 10^3/UL (140-415); RED BLOOD COUNT 3.27 10^6/ul (4.20-5.40); RED CELL DISTRIBUTION WIDTH 23.1 % (11.5-14.5); WHITE BLOOD COUNT 9.8 10^3/ul (4.8-10.8)
[2017-10-05 05:49] LABS: POSITIVE DIFF @See below
[2017-10-05 06:10] LABS: CALCIUM 7.9 mg/dl (8.4-10.2); CREATININE 0.39 mg/dl (0.44-1.00); MAGNESIUM 1.8 mg/dl (1.7-2.5); POTASSIUM 3.5 mmol/L (3.5-5.1)
[2017-10-05] MEDS: INSULIN ASPART [NOVOLOG] 3 ML PEN SC SCH ×2 (08:00→12:00)
[2017-10-05 08:05] VITALS: BP 124/73; RESP 18
[2017-10-05] MEDS: FAMOTIDINE 20 MG TAB PO SCH (08:23)
[2017-10-05] MEDS: DEXAMETHASONE 4 MG TAB PO SCH (08:23)
[2017-10-05] MEDS ORDERED: FLUCONAZOLE 100 MG TAB PO SCH (09:00)
[2017-10-05] MEDS: ALBUTEROL/IPRATROPIUM (NEB) 3 ML AMP HHN SCH (09:04)
--- NOTE | 2017-10-05 12:00 | PN ---
Date/Time of Note Date/Time of Note DATE: 10/05/17 TIME: 11:58 Assessment/Plan VTE Prophylaxis VTE Prophylaxis Intervention: ambulation, SCD's Lines/Catheters IV Catheter Type (from Nrsg): PICC Line Central line still needed: Yes Assessment/Plan Chief Complaint/Hosp Course s: 10.05: fell yesterday, CT head WNL, got caught up with her IV line cord O: Physical exam General: Patient is laying in bed and answers questions appropriately Mentation: Patient is alert and oriented 4, Head: R side s/p craniectomy, well healed Eyes: EOMI, pupils reactive to light Neck: Supple, nontender, midline Respiratory: coarse to auscultation bilaterally Cardiovascular: regular rate, no obvious murmurs Gastrointestinal: non-tender to palpation, bowel sounds heard. Neurological: Moves all extremities spontaneously Skin: No new skin lesions This is a 47-year-old female with metastatic breast cancer who was recently diagnosed with empyema and receiving IV antibiotics, presented to the emergency room for worsening shortness of breath and subjective fevers. 1. Pneumonia in the setting of recent parapneumonic effusion with staph aureus empyema. Clinically improving. -Continue abx. Follow-up with ID recommendations. -Bronchodilators, oxygen -CT Chest showing empyema/loculated effusion -pulm and CT surgery consulted 2. Sepsis, likely secondary to #1. Improving. -Continue antibiotics, IV fluids. Follow-up pancultures. 3. Anemia with iron deficiency and metastatic cancer history. H&H stable. -Monitor. 4. Metastatic breast cancer with metastases to lung, liver, brain, craniectomy 5. Recurrent pleural effusion with and Staph aureus empyema 2/2 malignancy. Patient also had history of Pleurx catheter placed in the past. -Status post recent VATS. 6. Prediabetes, previous A1c 6.2. -Carbohydrate controlled diet. Continue insulin in-house with steroids she is taking. DISPO -pulm/CT consulted -ID recs appreciated Problems: Exam/Review of Systems Vital Signs Vitals Vital Signs Date Time Temp Pulse Resp B/P Pulse Ox O2 Delivery O2 Flow Rate FiO2 10/05/17 10:37 Nasal Cannula 2.0 10/05/17 09:04 89 20 95 21 10/05/17 08:05 98.3 124/73 Intake and Output 1110/04/17 10/05/17 14:59 22:59 06:59 Intake Total 100 ml 1305 ml 590 ml Balance 100 ml 1305 ml 590 ml Results Result Diagram: 10/05/17 0454 10/05/17 0452 Results 24 hrs Laboratory Tests Test 10/04/17 18:20 10/04/17 20:45 10/05/17 02:12 10/05/17 04:52 Bedside Glucose 143 206 170 Sodium Level 139 Potassium Level 3.5 Chloride Level 104 Carbon Dioxide Level 27 Anion Gap 12 Blood Urea Nitrogen 12 Creatinine 0.39 L Glucose Level 135 Calcium Level 7.9 L Magnesium Level 1.8 Test 10/05/17 04:54 10/05/17 08:17 White Blood Count 9.8 Red Blood Count 3.27 L Hemoglobin 8.2 L Hematocrit 26.2 L Mean Corpuscular Volume 80.1 L Mean Corpuscular Hemoglobin 25.1 L Mean Corpuscular Hemoglobin Concent 31.3 L Red Cell Distribution Width 23.1 H Platelet Count 117 L Mean Platelet Volume 9.6 Neutrophils % 78.8 H Lymphocytes % 11.6 L Monocytes % 7.1 Eosinophils % 0.0 Basophils % 0.1 Nucleated Red Blood Cells % 0.0 Neutrophils # 7.7 H Lymphocytes # 1.1 Monocytes # 0.7 Eosinophils # 0.0 Basophils # 0.0 Nucleated Red Blood Cells # 0.0 Bedside Glucose 106 Medications Medications Current Medications Sodium Chloride (NS) 1,000 ml @ 75 mls/hr [id number] IV Last administered on t 01:21; Admin Dose 75 MLS/HR; Start 10/03/17 at 11:13 Ondansetron HCl (Zofran Inj) 4 mg Q6H PRN IV NAUSEA AND/OR VOMITING; Start at 11:30 Acetaminophen (Tylenol Tab) 650 mg Q6H PRN PO PAIN LEVEL 1-3 OR FEVER; Start 10/03/17 at 11:30 Acetaminophen (Tylenol Supp) 650 mg Q6H PRN RI PAIN LEVEL 1-3 OR FEVER; Start 10/03/17 at 11:30 Morphine Sulfate (morphine) 2 mg Q4H PRN IV SEVERE PAIN LEVEL 7-10; Start at 11:30 Bisacodyl (Dulcolax Supp) 10 mg Q24H PRN RI PRN; Start 10/03/17 at 11:30 Docusate Sodium (Colace) 200 mg QHS PO Last administered on 10/04/17 20:49; Admin Dose 200 MG; Start 10/03/17 at 21:00 Famotidine (Pepcid) 20 mg DAILY PO Last administered on 10/05/17 08:23; Admin Dose 20 MG; Start 10/04/17 at 09:00 Magnesium Hydroxide (Milk Of Mag) 30 ml QHS PO Last administered on 10/04/17 20:49; Admin Dose 30 ML; Start 10/03/17 at 21:00 Sodium Biphosphate/ Sodium Phosphate 66.6 ml 66.6 ml Q2D PRN RI CONSTIPATION; Start 10/03/17 at 11:30 Levofloxacin/ Dextrose (Levaquin 500mg/ D5W 100 ml (Pmx)) 100 ml @ 100 mls/hr Q24H IVPB Last administered on 10/04/17 12:00; Admin Dose 100 MLS/HR; Start 10/03/17 at 11:30 Diagnostic Test (Pha) (Accu-Chek) 1 ea 02 XX Last administered on 10/05/17 02 :15; Admin Dose 1 EA; Start 10/04/17 at 02:00 Miscellaneous Information 1 ea NOTE XX ; Start 10/03/17 at 14:30 Glucose (Glutose) 15 gm Q15M PRN PO DECREASED GLUCOSE; Start 10/03/17 at 14:30 Glucose (Glutose) 22.5 gm Q15M PRN PO DECREASED GLUCOSE; Start 10/03/17 at 14: 30 Dextrose (D50w Syringe) 25 ml Q15M PRN IV DECREASED GLUCOSE; Start 10/03/17 at 14:30 Dextrose (D50w Syringe) 50 ml Q15M PRN IV DECREASED GLUCOSE; Start 10/03/17 at 14:30 Glucagon (Glucagen) 1 mg Q15M PRN IM DECREASED GLUCOSE; Start 10/03/17 at 14: 30 Glucose (Glutose) 15 gm Q15M PRN BUCCAL DECREASED GLUCOSE; Start 10/03/17 at 14:30 Dexamethasone (Decadron) 4 mg DAILY PO Last administered on 10/05/17 08:23; Admin Dose 4 MG; Start 10/03/17 at 20:30 Tamoxifen Citrate 20 mg 20 mg DAILY@19 PO Last administered on 10/04/17 20:48 ; Admin Dose 20 MG; Start 10/03/17 at 20:30 Ceftriaxone Sodium (Rocephin) 50 ml @ 100 mls/hr Q24H IVPB Last administered on 10/04/17 15:51; Admin Dose 100 MLS/HR; Start 10/04/17 at 14:30 Fluconazole (Diflucan) 100 mg DAILY PO Last administered on 10/05/17 08:22; Admin Dose 100 MG; Start 10/05/17 at 09:00 JUAN MOTLEY Oct 05, 2017 12:00
[2017-10-05] MEDS: LEVOFLOXACIN 500MG/D5W (PMX) 100 ML IVPB SCH (12:03)
--- NOTE | 2017-10-05 12:45 | CONS ---
Date/Time of Note Date/Time of Note DATE: 10/05/17 TIME: 12:43 Assessment/Plan Assessment/Plan Chief Complaint/Hosp Course Patient is alert, looks comfortable, wants to go home. No fevers Microbiology: Urine culture growing Yeny albicans and gamma hemolytic strep species, blood cultures negative Antimicrobials: Rocephin, fluconazole, Levaquin Physical examination obese, well-developed middle-aged woman who is awake in no distress head atraumatic normocephalic sclerae nonicteric vehicle mucosa pink neck is supple chest rise symmetrical breath sounds diminished bases heart S1-S2 abdomen soft bowel sounds present extremities without cyanosis Assessment: 1. S/p SOB on admission 2. UTI 3. ? PNA 4. Hx MAYELA empyema, s/p decortication with pleurodesis 09/12/17 5. Metastatic breast cancer. 6. Diabetes. 7. History of craniectomy for brain metastasis. Plan: Stable, no dysuria, continue antibiotics, follow oncology recommendations DW pt Problems: Consultation Date/Type/Reason Admit Date/Time Oct 03, 2017 at 08:20 Initial Consult Date 10/03/17 Type of Consultation: ID Referring Provider: ИРИНА DEE Exam/Review of Systems Vital Signs Vitals Vital Signs Date Time Temp Pulse Resp B/P Pulse Ox O2 Delivery O2 Flow Rate FiO2 10/05/17 10:37 Nasal Cannula 2.0 10/05/17 09:04 89 20 95 21 10/05/17 08:05 98.3 124/73 Intake and Output 10/04/17 10/04/17 10/05/17 14:59 22:59 06:59 Intake Total 100 ml 1305 ml 590 ml Balance 100 ml 1305 ml 590 ml Results Result Diagram: 10/05/17 0454 10/05/17 0452 Results 24 hrs Laboratory Tests Test 10/04/17 18:20 10/04/17 20:45 10/05/17 02:12 10/05/17 04:52 Bedside Glucose 143 206 170 Sodium Level 139 Potassium Level 3.5 Chloride Level 104 Carbon Dioxide Level 27 Anion Gap 12 Blood Urea Nitrogen 12 Creatinine 0.39 L Glucose Level 135 Calcium Level 7.9 L Magnesium Level 1.8 Test 10/05/17 04:54 10/05/17 08:17 10/05/17 12:01 White Blood Count 9.8 Red Blood Count 3.27 L Hemoglobin 8.2 L Hematocrit 26.2 L Mean Corpuscular Volume 80.1 L Mean Corpuscular Hemoglobin 25.1 L Mean Corpuscular Hemoglobin Concent 31.3 L Red Cell Distribution Width 23.1 H Platelet Count 117 L Mean Platelet Volume 9.6 Neutrophils % 78.8 H Lymphocytes % 11.6 L Monocytes % 7.1 Eosinophils % 0.0 Basophils % 0.1 Nucleated Red Blood Cells % 0.0 Neutrophils # 7.7 H Lymphocytes # 1.1 Monocytes # 0.7 Eosinophils # 0.0 Basophils # 0.0 Nucleated Red Blood Cells # 0.0 Bedside Glucose 106 138 Medications Medications Current Medications Sodium Chloride (NS) 1,000 ml @ 75 mls/hr [id number] IV Last administered on 01:21; Admin Dose 75 MLS/HR; Start 10/03/17 at 11:13 Ondansetron HCl (Zofran Inj) 4 mg Q6H PRN IV NAUSEA AND/OR VOMITING; Start at 11:30 Acetaminophen (Tylenol Tab) 650 mg Q6H PRN PO PAIN LEVEL 1-3 OR FEVER; Start 10/03/17 at 11:30 Acetaminophen (Tylenol Supp) 650 mg Q6H PRN AR PAIN LEVEL 1-3 OR FEVER; Start 10/03/17 at 11:30 Morphine Sulfate (morphine) 2 mg Q4H PRN IV SEVERE PAIN LEVEL 7-10; Start at 11:30 Bisacodyl (Dulcolax Supp) 10 mg Q24H PRN AR PRN; Start 10/03/17 at 11:30 Docusate Sodium (Colace) 200 mg QHS PO Last administered on 10/04/17 20:49; Admin Dose 200 MG; Start 10/03/17 at 21:00 Famotidine (Pepcid) 20 mg DAILY PO Last administered on 10/05/17 08:23; Admin Dose 20 MG; Start 10/04/17 at 09:00 Magnesium Hydroxide (Milk Of Mag) 30 ml QHS PO Last administered on 10/04/17 20:49; Admin Dose 30 ML; Start 10/03/17 at 21:00 Sodium Biphosphate/ Sodium Phosphate 66.6 ml 66.6 ml Q2D PRN AR CONSTIPATION; Start 10/03/17 at 11:30 Levofloxacin/ Dextrose (Levaquin 500mg/ D5W 100 ml (Pmx)) 100 ml @ 100 mls/hr Q24H IVPB Last administered on 10/05/17 12:03; Admin Dose 100 MLS/HR; Start 10/03/17 at 11:30 Diagnostic Test (Pha) (Accu-Chek) 1 ea 02 XX Last administered on 10/05/17 02 :15; Admin Dose 1 EA; Start 10/04/17 at 02:00 Miscellaneous Information 1 ea NOTE XX ; Start 10/03/17 at 14:30 Glucose (Glutose) 15 gm Q15M PRN PO DECREASED GLUCOSE; Start 10/03/17 at 14:30 Glucose (Glutose) 22.5 gm Q15M PRN PO DECREASED GLUCOSE; Start 10/03/17 at 14: 30 Dextrose (D50w Syringe) 25 ml Q15M PRN IV DECREASED GLUCOSE; Start 10/03/17 at 14:30 Dextrose (D50w Syringe) 50 ml Q15M PRN IV DECREASED GLUCOSE; Start 10/03/17 at 14:30 Glucagon (Glucagen) 1 mg Q15M PRN IM DECREASED GLUCOSE; Start 10/03/17 at 14: 30 Glucose (Glutose) 15 gm Q15M PRN BUCCAL DECREASED GLUCOSE; Start 10/03/17 at 14:30 Dexamethasone (Decadron) 4 mg DAILY PO Last administered on 10/05/17 08:23; Admin Dose 4 MG; Start 10/03/17 at 20:30 Tamoxifen Citrate 20 mg 20 mg DAILY@19 PO Last administered on 10/04/17 20:48 ; Admin Dose 20 MG; Start 10/03/17 at 20:30 Ceftriaxone Sodium (Rocephin) 50 ml @ 100 mls/hr Q24H IVPB Last administered on 10/04/17 15:51; Admin Dose 100 MLS/HR; Start 10/04/17 at 14:30 Fluconazole (Diflucan) 100 mg DAILY PO Last administered on 10/05/17 08:22; Admin Dose 100 MG; Start 10/05/17 at 09:00 ZULEYMA ALEX NP Oct 05, 2017 12:45
--- NOTE | 2017-10-05 13:51 | PDOCDIS ---
Discharge Instructions CONDITION Patient Condition: Stable HOME CARE INSTRUCTIONS: Special Diet: carb controlled FOLLOW UP/APPOINTMENTS Follow-up Plan 1. Continue to take all home medications including decadron and tamoxifen 2. Follow up with Dr. Franki BEARDEN for chemotherapy 3. return to ED if symptoms worsen JUAN MOTLEY Oct 05, 2017 13:51
--- NOTE | 2017-10-05 13:58 | DS ---
Date/Time of Note Date/Time of Note DATE: 10/05/17 TIME: 13:58 Discharge Summary Admission/Discharge Info Admit Date/Time Oct 03, 2017 at 08:20 Discharge Date/Time Patient Condition: Stable Hospital Course Patient is a 47-year-old female with metastatic breast cancer recently diagnosed with empyema status post pleurodesis on previous admission who presented for worsening shortness of breath and subjective fevers. Patient was originally started on IV antibiotics and CT of the chest was taken. However upon evaluation of the CT chest by pulmonology, there is no discrete pocket where thoracentesis may be of benefit and the fluid will be persistent in this patient with metastatic malignant pleural effusions. The chart was reviewed and since there was no elevation in white count or other signs of true infection , patient will be discharged to follow-up with her outpatient gym attendant within 4 days. Clear instructions were given to the patient to resume home medications with a repeat urinalysis in the outpatient setting. Patient states that she wanted to go home and will follow up with her outpatient oncologist, and will return to the ED if symptoms persist. Her original symptoms of shortness of breath and subjective fevers were likely multifactorial including volume depletion, sequelae of radiation therapy and the overall effects of malignant carcinoma. Discharge diagnosis Shortness of breath, likely secondary to malignant chronic pleural effusion and metastatic cancer Metastatic breast cancer with metastases to bone, liver, brain Sepsis, ruled out Anemia, chronic Home Meds Active Scripts Blood-Glucose Meter (BLOOD GLUCOSE MONITORING) 1 Each Kit, 1 EACH MC for ELEVATED GLUCOSE, #1 Prov:ZEUS TABOR MD 09/27/17 Front Wheel Walker* (Front Wheel Walker*) 1 Each Dme, 1 EACH MC DIRECTED, #1 DME 0 Refills Prov:ZEUS TABOR MD 09/27/17 Reported Medications Tamoxifen Citrate* (Nolvadex*) 20 Mg Tablet, 20 MG PO DAILY, TAB 09/05/17 Famotidine* (Famotidine*) 20 Mg Tablet, 20 MG PO DAILY, #30 TAB 09/05/17 Dexamethasone* (Dexamethasone*) 4 Mg Tablet, 4 MG PO BID, TAB 09/05/17 Cranberry Extract (Cranberry) 425 Mg Capsule, 425 MG PO DAILY, CAP 09/05/17 Acetaminophen* (Acetaminophen*) 500 MG Extra Strength Tablet, 1000 MG PO Q6H Y for PAIN 4-6/10, TAB 09/05/17 Sod Phosphate/Sod Biphosphate* (Fleet* Enema Pediatric) 66.6 Ml Soln, 66.6 ML IA Q2D Y for CONSTIPATION, ENEMA 09/05/17 Bisacodyl* (Bisacodyl*) 10 Mg Supp, 10 MG IA Q24H Y for PRN, SUPP 09/05/17 Magnesium Hydroxide* (Milk Of Magnesia*) 400 Mg/5 Ml Oral.susp, 30 ML PO QHS, ML 09/05/17 Docusate Sodium* (Colace*) 100 Mg Capsule, 200 MG PO QHS, #30 CAP 09/05/17 Insulin Aspart* (Novolog Insulin Pen*) 100 Unit/Ml Soln, 0 SC .SLIDING SCALE AC , EA 0-150=0, 151-200=2 UNITS, 201-250=4 UNITS, 251-300=6 UNITS, 301-350=8 UNITS, 351-400=10 UNITS,>400=12 UNITS; EMERY CASTRO IF BS BELOW 70 09/05/17 Follow-up Plan 1. Continue to take all home medications including decadron and tamoxifen 2. Follow up with Dr. Franki BEARDEN for chemotherapy 3. return to ED if symptoms worsen Primary Care Provider Alma Doan M.D. Time spent on discharge: > 30 minutes Pending Labs Laboratory Tests Test 10/04/17 18:20 10/04/17 20:45 10/05/17 02:12 10/05/17 04:52 Bedside Glucose 143mg/dL (70-220) 206mg/dL (70-220) 170mg/dL (70-220) Sodium Level 139mmol/L (135-144) Potassium Level 3.5mmol/L (3.5-5.1) Chloride Level 104mmol/L (97-110) Carbon Dioxide Level 27mmol/L (21-31) Anion Gap 12 (8-16) Blood Urea Nitrogen 12mg/dl (7-20) Creatinine 0.39mg/dl (0.44-1.00) Glucose Level 135mg/dl (70-220) Calcium Level 7.9mg/dl (8.4-10.2) Magnesium Level 1.8mg/dl (1.7-2.5) Test 10/05/17 04:54 10/05/17 08:10/05/17 12:01 White Blood Count 9.810^3/ul (4.8-10.8) Red Blood Count 3.2710^6/ul (4.20-5.40) Hemoglobin 8.2g/dl (12.0-16.0) Hematocrit 26.2% (37.0-47.0) Mean Corpuscular Volume 80.1fl (82.0-101.0) Mean Corpuscular Hemoglobin 25.1pg (29.0-33.0) Mean Corpuscular Hemoglobin Concent 31.3g/dl (32.0-37.0) Red Cell Distribution Width 23.1% (11.5-14.5) Platelet Count 06404^3/UL (140-415) Mean Platelet Volume 9.6fl (7.4-10.4) Neutrophils % 78.8% (39.0-77.0) Lymphocytes % 11.6% (15.0-51.0) Monocytes % 7.1% (0.0-11.0) Eosinophils % 0.0% (0.0-7.0) Basophils % 0.1% (0.0-2.0) Nucleated Red Blood Cells % 0.0/100WBC (0.0-0.0) Neutrophils # 7.710^3/ul (1.6-7.5) Lymphocytes # 1.110^3/ul (0.8-2.9) Monocytes # 0.710^3/ul (0.3-0.9) Eosinophils # 0.010^3/ul (0.0-0.5) Basophils # 0.010^3/ul (0.0-0.1) Nucleated Red Blood Cells # 0.010^3/ul (0.0-0.0) Bedside Glucose 106mg/dL (70-220) 138mg/dL (70-220) JUAN MOTLEY Oct 05, 2017 13:58
[2017-10-05 14:06] VITALS: BP 131/76; RESP 16
[2017-10-05] MEDS ORDERED: ALBUTEROL/IPRATROPIUM (NEB) 3 ML AMP HHN SCH (16:00)
--- NOTE | 2017-10-05 16:25 | CONS ---
DATE OF ADMISSION: 10/03/2017 DATE OF CONSULTATION: 10/05/2017 TYPE OF CONSULTATION: Pulmonary. REASON FOR CONSULTATION: Shortness of breath. Thank you, ____, for this consultation. HISTORY OF PRESENT ILLNESS: This is a 47-year-old lady with history of metastatic breast cancer wit h recurrent right pleural effusions, underwent video-assisted thorascopic pleurodesis recently, now presents with increasing shortness of breath, orthopnea, PND and a CT of the chest demonstrating rig ht lung base empyema, loculated pleural effusion. She describes no fever or chills. No chest pain or palpitations. No orthopnea or PND. She has recently completed radiation treatment for brain met astasis. PAST MEDICAL HISTORY: As above. MEDICATIONS: Per chart. ALLERGIES: NONE. SOCIAL HISTORY: Nonsmoker, no alcohol, no history of drug use. FAMILY HISTORY: Noncontributory. SYSTEMS REVIEW: A 12-point review of systems are negative other than that mentioned. PHYSICAL EXAMINATION: GENERAL: Well-nourished, well-developed lady, comfortable at rest, no acute distress. VITAL SIGNS: Currently afebrile, pulse is 89, blood pressure 124/73, O2 saturation 95% on 2 liters. NECK: Supple. No JVD or lymphadenopathy. CARDIAC: S1, S2, no added sounds or murmurs. CHEST: Diminished air entry bilaterally. ABDOMEN: Soft, nontender. No guarding or rebound. EXTREMITIES: No cyanosis, clubbing or edema. NEUROLOGIC: Grossly intact. IMAGING: CT shows right frontotemporal craniotomy and cranioplasty. Chest CT shows right mastectom y with axillary lymphadenopathy, lung base empyema, loculated pleural effusion on the right, nodular masses throughout the lung. IMPRESSION AND PLAN: 1. Recurrent metastatic pleural effusion. 2. Progressive metastatic breast cancer. 3. 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 Upon reviewing the CT scan, effusion seems multiloculated, does not appear to be a clear pocket for thoracentesis; would therefore defer thoracentesis for now. Continue with current care and consider discharge and outpatient oncology evaluation. Dictated By: MARTINEZ MASCORRO MD SV/NTS Conf#: [id number] DID#: [id number] CC: ИРИНА DEE MD;*EndCC*
== END 2017-10-05 16:00 | disposition home or self-care (01) | DRG 193 ==
LOC: E/R 05:21 → PP2 08:20
PROVIDERS: ADMIT Internal Medicine; ATTEND Internal Medicine
DX: J18.9 Pneumonia, unspecified organism (principal); J86.9 Pyothorax without fistula; J91.0 Malignant pleural effusion; C78.00 Secondary malignant neoplasm of unspecified lung; C78.7 Secondary malignant neoplasm of liver and intrahepatic bile duct; C79.31 Secondary malignant neoplasm of brain; Z68.41 Body mass index [BMI] 40.0-44.9, adult; N39.0 Urinary tract infection, site not specified; B37.49 Other urogenital candidiasis; C50.919 Malignant neoplasm of unspecified site of unspecified female breast; Z17.0 Estrogen receptor positive status [ER+]; E66.9 Obesity, unspecified; D50.9 Iron deficiency anemia, unspecified; R73.03 Prediabetes; Z91.19 Patient's noncompliance with other medical treatment and regimen; B95.4 Other streptococcus as the cause of diseases classified elsewhere
CPT/HCPCS: 36415; 70450; 71010; 71250; 80048; 80053; 81001; 82962; 83605; 83735; 84100; 84439; 84443; 84484; 85025; 85610; 85730; 87040; 87081; 87086; 87400; 93005; 94640; 94664; 96365; 96375; J0696; J1815; J1956; J3370; J7030

== ENCOUNTER 2018-02-10 15:00 | Inpatient (IN) | END 2018-02-14 18:00 | disposition home or self-care (01) | DRG 180 ==